=== PATIENT | male | born 1935 | race Caucasian/White ===

== ENCOUNTER → 2017-03-18 09:43 | Outpatient (CLI) | payer MEDICARE, SELFPAY ==
--- NOTE | 2017-03-18 09:46 | CDU_ITS ---
Reason For Study: Carotid stenosis Rt. Velocities/BP Lt. Velocities/BP Prox CCA 76.2/19.9 cm/sec. Prox CCA 137.0/23.6 cm/sec. Mid CCA 85.6/20.5 cm/sec. Mid CCA 130.0/25.1 cm/sec. Dist CCA 92.0/21.1 cm/sec. Dist CCA 115.0/25.1 cm/sec. Prox ICA 95.6/30.1 cm/sec. Prox ICA 50.7/11.4 cm/sec. Mid ICA 79.7/24.5 cm/sec. Mid ICA 54.2/12.6 cm/sec. Dist ICA 80.6/29.4 cm/sec. Dist ICA 45.6/9.8 cm/sec. Rt. ICA/CCA = 1.1. Lt. ICA/CCA = .42. Prox ECA 136.0/24.7 cm/sec. Prox ECA 139.0/25.9 cm/sec. Rt. Vert. 57.5/16.4 cm/sec. Lt. Vert. 47.9/18.1 cm/sec. Right Extracranial There is intimal thickening but no significant atherosclerotic plaque noted in the right common carotid artery. There is heterogeneous, irregular atherosclerotic plaque noted in the right internal carotid artery. There is heterogeneous, irregular atherosclerotic plaque noted in the right external carotid artery. Antegrade flow is noted in the right vertebral artery. Left Extracranial There is intimal thickening but no significant atherosclerotic plaque noted in the left common carotid artery. There is heterogeneous, irregular atherosclerotic plaque noted in the left internal carotid artery. LICA small in caliber. There is heterogeneous, irregular atherosclerotic plaque noted in the left external carotid artery. Antegrade flow is noted in the left vertebral artery. Procedure Carotid Duplex [id number]. Exam performed in department. Interpretation Summary Mild (<50%) stenosis right extracranial internal carotid. Mild (<50%) stenosis left extracranial internal carotid. Flow within the vertebral arteries is antegrade bilaterally. Ordering Physician: Ximena Haines Referring Physician: BRIAN BARTLETT Performed By: Sarah Snowden RVT
--- NOTE | 2017-03-18 09:47 | RDU_ITS ---
Reason For Study: Renal Insufficiency Right Renal Artery Left Renal Artery Right renal artery ostium 74.6/13.4 Left renal artery ostium 103.0/25.1 RSV/EDV. PSV/EDV. Right renal artery proximal Left renal artery proximal PSV/EDV 89.2/16.5 PSV/EDV. 114.0/29.2 . Right renal artery mid 88.6/18.9 Left renal artery mid 113.0/30.1 PSV/EDV. PSV/EDV . Right renal artery distal Left renal artery distal 115.0/25.5 110.0/22.0 PSV/EDV. PSV/EDV. Right RAR 1.3. Left RAR 1.4. Right Renal Parenchyma Left Renal Parenchyma Upper Pole Medula 38.2/10.7 Left upper pole medulla 31.8/5.8 PSV/EDV. PSV/EDV . Right upper pole medulla EDR .28 . Left upper pole medulla EDR .18 . Right upper pole medulla R.I. .72 . Left upper pole medulla R.I. .82 . Upper Matt Cortx 25.4/6.4 PSV/EDV. UP Cortex 20.5/5.8 PSV/EDV. Right upper pole cortex EDR .25 . Left upper pole cortex EDR .28 . Right upper pole cortex R.I. .75 . Left upper pole cortex R.I. .72 . Right lower Pole medulla 27.2/7.0 Left lower Pole medulla 19.3/5.8 PSV/EDV . PSV/EDV . Right lower pole medulla EDR .26 . Left lower pole medulla EDR .30 . Right lower pole medulla R.I. .74 . Left lower pole medulla R.I. .70 . Lower Pole Cortex 18.6/5.5 PSV/EDV. Lower Pole Cortx 19.3/5.2 PSV/EDV. Right lower pole cortex EDR .30 . Left lower pole cortex EDR .27 . Right lower pole cortex R.I. .70 . Left lower pole cortex R.I. .73 . Right Renal Hilar Left Renal Hilar Right Hilar avg 84.4/16.0 PSV/EDV. LT Hilar avg 45.2/10.7 PSV/EDV . Right hilar acceleration time 73 Left hilar acceleration time 51 m/sec. m/sec. Right Renal Dimensions Left Renal Dimensions Right kidney size 10.0 cm . Left kidney size 9.0 cm . Right cortical dimension 1.5 cm . Left cortical dimension 1.5 cm . Aorta Proximal abdominal aorta 1.9 x 1.8 cm . Distal abdominal aorta 1.6 x 1.6 cm . Proximal abdominal aorta peak systolic velocity is 83.9 cm/sec . Distal abdominal aorta peak systolic velocity is 78.4 cm/sec . Interpretation Summary 1. Bilateral renal arteries with <60% stenosis. Ordering Physician: Ximena Haines Referring Physician: BRIAN BARTLETT Performed By: Sarah Snowden RVT
== END ==
PROVIDERS: Family Provider Internal Medicine; PCP Internal Medicine; Visit Provider Internal Medicine
DX: I10 Essential (primary) hypertension (principal); N28.9 Disorder of kidney and ureter, unspecified; I65.23 Occlusion and stenosis of bilateral carotid arteries
CPT/HCPCS: 93880; 93975

== ENCOUNTER → 2017-04-09 12:00 | Outpatient (CLI) | payer MEDICARE, SELFPAY ==
[2017-04-09 14:53] LABS: Creatinine, Serum 1.19 mg/dL (0.70-1.30); EST Glomerular Filtration Rate 62 mL/min (>60); Est Glom Filt Rate - Afr Amer 75 mL/min (>60)
== END ==
PROVIDERS: Family Provider Internal Medicine; PCP Internal Medicine; Visit Provider Surgery Vascular Surgery
DX: I65.23 Occlusion and stenosis of bilateral carotid arteries (principal)
CPT/HCPCS: 36415; 82565

== ENCOUNTER → 2017-05-05 14:43 | Outpatient (CLI) | payer MEDICARE, SELFPAY ==
[2017-05-01 10:30] LABS: Anion Gap 8 (5-15); BUN 19 mg/dL (7-18); BUN/Creat Ratio 13.2 RATIO (10-20); Calcium,Total 8.5 mg/dL (8.5-10.1); Chloride 104 mmol/L (98-107); Creatinine, Serum 1.44 mg/dL (0.70-1.30); EST Glomerular Filtration Rate 50 mL/min (>60); Est Glom Filt Rate - Afr Amer 60 mL/min (>60); Glucose 84 mg/dL (74-106); Potassium 4.6 mmol/L (3.5-5.1); Sodium Level 140 mmol/L (136-145)
--- NOTE | 2017-05-05 14:45 | CT_ITS ---
CTA of the neck INDICATION: Bilateral carotid stenosis. TECHNIQUE: CTA of the carotids was performed in the axial projection scanning in a dynamically enhanced fashion from the base of skull through the pulmonary apices followed by sagittal and coronal reconstruction Radiographic technique was optimized to limit patient radiation dose FINDINGS: There is mild diffuse soft plaque seen within the right common carotid. At the level of the carotid bulb there is moderate soft and calcific plaque but no significant stenosis. There is also mild calcific plaque in the origin of the internal carotid There is mild diffuse soft plaque seen within the left common carotid. At the level of the carotid bulb there is mild calcific and soft plaque. However, there is occlusion of the left internal carotid at its origin. There is no contrast seen within the more distal internal carotid, petrous or cavernous carotid. The vertebrals are codominant. There is mild calcific plaque within the distal left vertebral CT/CTA Neck W/WO Contrast IMPRESSION: Occlusion of the left internal carotid without reconstitution distally. Moderate calcific plaque of the right carotid bulb without evidence for hemodynamically significant stenosis. Electronically Signed: Renato Barrow MD at 18:17 EST , Service support ,
== END ==
PROVIDERS: Family Provider Internal Medicine; PCP Internal Medicine; Visit Provider Surgery Vascular Surgery
DX: I65.23 Occlusion and stenosis of bilateral carotid arteries (principal); I10 Essential (primary) hypertension
CPT/HCPCS: 36415; 70498; 80048; Q9967

== ENCOUNTER → 2017-05-27 09:35 | Outpatient (CLI) | payer MEDICARE, SELFPAY ==
[2017-05-27 12:07] LABS: Absolute Neutrophil Count 3.2 X10^3/uL (2.0-7.7); Basophil# 0.04 X10^3/uL; Basophil% 0.8 % (0-1); Eosinophils% 5.7 % (0-5); Hematocrit 34.4 % (40-54); Hemoglobin 11.5 g/dl (13.0-16.5); Lymphocyte % 22.6 % (19-41); Mean Corp Hgb Conc 33.4 g/gl (32-36); Mean Corpuscular Volume 86.6 fL (80-94); Mean Platelet Vol. 11.9 fl (6.2-12.0); Monocyte% 11.3 % (0-10); Neutrophil # 3.16 X10^3/uL (2.7-7.7); Neutrophil % 59.6 % (47-70); Platelet Count 182 K/mm3 (150-450); RBC Distribution Width CV 14.9 % (11.6-14.6); RBC Distribution Width SD 46.5 fl (35.1-43.9); Red Blood Count 3.97 M/mm3 (4.6-6.2); White Blood Count 5.3 K/mm3 (4.4-11.0)
[2017-05-27 12:21] LABS: AST(SGOT) 19 U/L (15-37); Alanine Aminotransfer ALT/SGPT 20 U/L (16-61); Albumin, Serum 3.6 g/dL (3.2-5.0); Alkaline Phosphatase 59 U/L (45-117); Anion Gap 6 (5-15); BUN 15 mg/dL (7-18); BUN/Creat Ratio 11.4 RATIO (10-20); Calcium,Total 8.7 mg/dL (8.5-10.1); Chloride 105 mmol/L (98-107); Creatinine, Serum 1.32 mg/dL (0.70-1.30); EST Glomerular Filtration Rate 55 mL/min (>60); Est Glom Filt Rate - Afr Amer 67 mL/min (>60); Globulin 3.7 g/dL (2.2-4.2); Glucose 93 mg/dL (74-106); Potassium 4.1 mmol/L (3.5-5.1); Protein, Total 7.3 g/dL (6.4-8.2); Sodium Level 139 mmol/L (136-145)
[2017-05-27 12:22] LABS: POSITIVE COUNT NO; POSITIVE DIFFERENTIAL NO; POSITIVE MORPHOLOGY NO
== END ==
PROVIDERS: Family Provider Internal Medicine; PCP Internal Medicine; Visit Provider Internal Medicine Rheumatology
DX: M06.4 Inflammatory polyarthropathy (principal); N40.0 Benign prostatic hyperplasia without lower urinary tract symptoms; K90.0 Celiac disease; M81.0 Age-related osteoporosis without current pathological fracture; E78.5 Hyperlipidemia, unspecified; E03.9 Hypothyroidism, unspecified
CPT/HCPCS: 36415; 80053; 85025

== ENCOUNTER → 2017-12-04 10:17 | Outpatient (CLI) | payer MEDICARE, SELFPAY ==
[2017-12-04 12:11] LABS: Absolute Lymphocyte Count 1.13 X10^3/ul (0.83-4.51); Absolute Neutrophil Count 2.7 X10^3/uL (2.0-7.7); Basophil# 0.03 X10^3/uL; Basophil% 0.7 % (0-1); Eosinophil# 0.23 X10^3/uL; Eosinophils% 5.1 % (0-5); Hematocrit 35.6 % (40-54); Hemoglobin 11.6 g/dl (13.0-16.5); Lymphocyte # 1.13 X10^3/ul (4.0); Lymphocyte % 25.3 % (19-41); Mean Corp Hgb Conc 32.6 g/gl (32-36); Mean Corpuscular Hgb 28.2 pg (27.0-32.0); Mean Corpuscular Volume 86.6 fL (80-94); Mean Platelet Vol. 11.1 fl (6.2-12.0); Monocyte# 0.41 X10^3/uL; Monocyte% 9.2 % (0-10); Neutrophil # 2.67 X10^3/uL (2.7-7.7); Neutrophil % 59.7 % (47-70); Platelet Count 215 K/mm3 (150-450); RBC Distribution Width CV 14.4 % (11.6-14.6); RBC Distribution Width SD 45.1 fl (35.1-43.9); Red Blood Count 4.11 M/mm3 (4.6-6.2); White Blood Count 4.5 K/mm3 (4.4-11.0)
[2017-12-04 12:22] LABS: POSITIVE COUNT NO; POSITIVE DIFFERENTIAL NO; POSITIVE MORPHOLOGY NO
[2017-12-04 12:44] LABS: ALB/GLOB Ratio 1.1 RATIO (0.9-2.4); AST(SGOT) 20 U/L (15-37); Alanine Aminotransfer ALT/SGPT 25 U/L (16-61); Albumin, Serum 3.8 g/dL (3.2-5.0); Alkaline Phosphatase 57 U/L (45-117); Anion Gap 9 (5-15); BUN 17 mg/dL (7-18); BUN/Creat Ratio 15.5 RATIO (10-20); Calcium,Total 8.7 mg/dL (8.5-10.1); Chloride 106 mmol/L (98-107); EST Glomerular Filtration Rate 68 mL/min (>60); Est Glom Filt Rate - Afr Amer 82 mL/min (>60); Globulin 3.4 g/dL (2.2-4.2); Glucose 75 mg/dL (74-106); Potassium 4.1 mmol/L (3.5-5.1); Protein, Total 7.2 g/dL (6.4-8.2); Sodium Level 141 mmol/L (136-145)
== END ==
PROVIDERS: Family Provider Internal Medicine; PCP Internal Medicine; Referring Provider Internal Medicine Rheumatology; Visit Provider Internal Medicine Rheumatology
DX: M06.4 Inflammatory polyarthropathy (principal); K90.0 Celiac disease; M81.0 Age-related osteoporosis without current pathological fracture; E78.5 Hyperlipidemia, unspecified; E03.9 Hypothyroidism, unspecified; N40.0 Benign prostatic hyperplasia without lower urinary tract symptoms
CPT/HCPCS: 36415; 80053; 85025

== ENCOUNTER 2018-02-08 06:12 | Inpatient (IN) | payer MEDICARE, SELFPAY ==
[2018-01-21 13:36] VITALS: BP 130/74; PULSE 65; RESP 16; TEMP 36.6; O2SAT 95; BMI 30.9
--- NOTE | 2018-01-21 13:57 | SDCEKG_ITS ---
Test Reason : Blood Pressure : / mmHG Vent. Rate : 064 BPM Atrial Rate : 064 BPM P-R Int : 254 ms QRS Dur : 080 ms QT Int : 398 ms P-R-T Axes : 058 021 046 degrees QTc Int : 410 ms Poor data quality, interpretation may be adversely affected Sinus rhythm with 1st degree A-V block Septal infarct , age undetermined Abnormal ECG Confirmed by MARTY DUNN, DENICE ([id number]), purchasing expeditor ASYA REAVES ([id number]) on 01/27/2018 11:32:35 AM Referred By: Ximena Haines Confirmed By:DENICE FERGUSON MD
[2018-01-21 14:26] LABS: Hemoglobin 11.8 g/dl (13.0-16.5); Mean Corp Hgb Conc 32.8 g/gl (32-36); Mean Corpuscular Hgb 28.6 pg (27.0-32.0); Mean Corpuscular Volume 87.4 fL (80-94); Mean Platelet Vol. 11.3 fl (6.2-12.0); Platelet Count 196 K/mm3 (150-450); RBC Distribution Width CV 14.3 % (11.6-14.6); Red Blood Count 4.12 M/mm3 (4.6-6.2); Scan Indicated on CBC? Y/N NO; White Blood Count 5.6 K/mm3 (4.4-11.0)
[2018-01-21 14:44] LABS: Anion Gap 11 (5-15); BUN 20 mg/dL (7-18); BUN/Creat Ratio 15.6 RATIO (10-20); Calcium,Total 8.6 mg/dL (8.5-10.1); Chloride 106 mmol/L (98-107); Creatinine, Serum 1.28 mg/dL (0.70-1.30); EST Glomerular Filtration Rate 57 mL/min (>60); Est Glom Filt Rate - Afr Amer 69 mL/min (>60); Glucose 106 mg/dL (74-106); Potassium 4.3 mmol/L (3.5-5.1); Sodium Level 142 mmol/L (136-145); Thyroid Stim Hormone (TSH) 0.63 uIU/mL (0.358-3.74)
[2018-02-08] VITALS (10 sets, daily range): BP systolic 90–131; BP diastolic 51–98; PULSE 56–81; RESP 16–18; TEMP 36.1–36.9; O2SAT 94–100; BMI 30.9
--- NOTE | 2018-02-08 | KNEE_PTH ---
PATIENT: DELROY TIPTON LOC: MS3 U#:[id number] AGE/SX: 82/M ROOM: RI324 RE02/08/[address]: Dr. Fabian Kay DO : 1935 BED: 1 DIS: 02/09/2018 SPEC #: [id number] RECD: 02/08/18 13:27 STATUS: CINTHIA REMayra #: [id number] NICOLASA: 02/08/18 00:[address]: Fabian Kay DEPT: SURGICAL PATHOLOGY RECD BY: Sudarshan Payne ENTERED: 02/08/18 13:27 SP TYPE: TOTAL KNEE OTHR DR: Dr. Ximena Haines MD Tissues: Knee, NOS Procedures: Decalcification bone/plaque Surgery Specimen Level IV HEADER OPERATION: Total knee replacement PRE-OP DIAGNOSIS: Osteoarthritis left knee TISSUE SUBMITTED: Bone and soft tissue MICROSCOPIC DIAGNOSIS Bone of left knee, total knee resection: Severe degenerative joint disease. Mild synovial hyperplasia with associated mild chronic inflammation. AM:alma 02/10/18 MICROSCOPIC DESCRIPTION Slides are reviewed. GROSS DESCRIPTION Received is one container designated bone and soft tissue left knee. The specimen consists of multiple fragments of yin-yellow bone measuring in aggregate 17 x 12 x 2 cm. Also in the specimen container are multiple fragments of yellow-white soft tissue measuring in aggregate 8 x 6 x 1 cm. A number of bony fragments contain articular surfaces consistent with tibial plateau and femoral condyle and displaying prominent osteophyte formation, eburnation, and bone erosion. Publicity Writer sections are submitted in two cassettes as follows: 1 - soft tissue, 2 - bone after decalcification. / AM:alma 02/08/18 TC:5 CPT: 88582, 91666
[2018-02-08] MEDS: Acetaminophen 500 MG Tablet 1000 MG PO ×3 (07:32→21:34)
[2018-02-08] MEDS: oxyCODONE HCl Cr 10 MG Tablet PO (07:33)
[2018-02-08] MEDS: Celecoxib 200 MG Capsule 400 MG PO (07:33)
[2018-02-08] MEDS: Cefazolin 2 GM in 0.9% Normal Saline 100 ML IV (09:05)
--- NOTE | 2018-02-08 10:18 | PCM.IMDPSTOP ---
Immediate Post-Op Note Date of Procedure: 02/08/18 Primary Surgeon/Physician: Fabian Kay upholstered goods crafter: Jerry Jimenez Pre-Operative Diagnosis: OA left knee Post-Operative Diagnosis: same Surgery/Procedure Performed:: Left TKR Description of Surgical Findings:: see note Estimated Blood Loss: 25cc Specimen's removed: bone Type of Anesthesia:: Spinal ASA Class: ASA3 Severe Disease - Admit VTE Documentation VTE Present on Admission: No VTE Mechan Device Prophylaxis: SCD's, Thigh High DEBORAH Hose VTE Pharm Prophylaxis ordered?: Yes
--- NOTE | 2018-02-08 10:19 | PCM.OP.BLANK ---
Operative Report Date of Procedure: 02/08/18 Primary Surgeon/Physician: Fabian Kay operations general agent: Jerry Jimenez PA-C operations general agent: Pre-Operative Diagnosis: OA left knee Post-Operative Diagnosis: same Surgery/Procedure Performed: Left TKR Estimated Blood Loss: 25cc Specimen's Removed: bone Type of Anesthesia: spinal ASA Class: 3 Implants: [Isabella Triathlon size 5 femur, size 6 tibia, 11 mm PS poly, 38 mm patella, all components cemented ] Indications: Patient has severe end-stage osteoarthritis diagnosed via x-rays in the knee. They have failed all forms of conservative measures including activity modification, injections, anti-inflammatories, use of assistive device. The patient has pain that affects on a daily basis and prevents him from doing things that they enjoyed. They have elected to undergo the above procedure. The risks of the procedure were discussed at length and their questions were answered. Procedure Description: The patient was greeted in the preoperative area. The [left ] knee was then marked with a surgical marker. Patient was then taken to or Suite 2. They were administered a dose of antibiotics as well as tranexamic acid. Once adequate anesthesia was obtained and airway was secured to placed in supine position on the operating room table. A well-padded tourniquet was placed on the affected extremity. Leg was then prepped and draped in the usual sterile fashion from the knee down. Ioban was used on the skin. Surgical timeout was then performed and confirmed with all present. Six-inch Esmarch was used to examine the limb and tourniquet was then inflated to 250 mmHg. A longitudinal incision was then planned and carried out in the anterior aspect of the knee. The dissection was then carried the length of the incision the extensor mechanism was identified. Standard medial parapatellar arthrotomy was then performed revealing severe eburnation of bone and periarticular osteophytes. There is complete loss of cartilage especially in the medial compartment with varus alignment. Anterior fat pad was removed for visualization purposes and the anterior medial aspect of the tibia was skeletonized for exposure to the knee. The knee was then flexed the patella was inverted. Opening reamer was then used in the femur approximately 1 cm anterior to the attachment of the PCL. The intramedullary valgus wand was then placed in the femur set at 5? of valgus. The distal femoral cutting jig was then applied to the femur with anticipated resection of approximately 8 mm. This was then made with a oscillating saw. The sizing guide was then placed referencing off the posterior condyles and also reference off the epicondylar axis. This was measured and the appropriate size 4-in-1 cutting jig was then applied to the distal femur. Anterior posterior cuts were made followed by the anterior and posterior chamfer cuts. These bony pieces and fragments were removed and placed on the back table. Posterior retractor was then utilized and the tibia was subluxed anteriorly. Extramedullary tibial alignment jig was then applied to the tibia referencing off the medial one third of the tibial tubercle the anterior tibial spine the middle aspect of the tibiotalar joint. Also reference off patient's [place] slope. The tibial cutting jig was then pinned with anticipated resection of 2 mm off of the deficient medial tibial condyle. This cut was made with the oscillating saw. Once this was complete a laminar plumbing service technician was utilized in both medial lateral meniscus were removed and a posterior capsular osteophytes were also removed. Posterior capsule release was performed in the posterior capsule as well as the geniculate arteries are treated with the aqua Gauri. The tibia was incised and the appropriate sized tibial tray was then pinned. The femoral box cutting jig was then applied to the femur and the box was prepared removing a portion of the intercondylar notch. The femoral trial was then placed and the knee was trialed. Full flexion-extension were easily achieved. The knee seemed to balance quite nicely. Any remaining osteophytes were removed at this time. Once this was complete the patella was everted and the Aguilar patella reaming device was then utilized the patella was then placed in the appropriate jig and reamer was then used to remove approximately 9 mm of the undersurface of the patella. A soft tissue remaining was in the way was removed and patella trial was then placed listed maintain excellent tracking using the no thumbs technique. The tibial tray at this point was punched to accommodate the fins of the final implant. At this point cement was mixed on the back table. The trial components were removed and the knee was copiously irrigated. Did use a cocktail of injection for postoperative pain control. The final components were then cemented in the standard fashion and excess cement was removed with cement removal tools and patellar clamp is placed in the patella. As the cement had cured in full extension tourniquet was deflated and hemostasis was perfect with Bovie cautery as well as the aqua Manus. Needle is once again trialed with different size polyethylenes to ensure the full range of motion was achieved as well as excellent balancing ligamentously was achieved. At this point the knee was copiously irrigated. Final implant was then inserted locking mechanism was engaged and confirmed to be locked. The arthrotomy was then closed with #1 Vicryl aggravate type fashion interrupted. Subcutaneous tissue was closed with 0 Vicryl and surgical radha were placed in the skin. A occlusive silver impregnated dressing was then applied followed by well-padded sterile dressing secured with an Alexander wrap. The patient was taken to the PACU in stable condition. No complications known at this time. Postoperatively we will maintain standard total knee postoperative protocol. The use of the physician sales operations assistant was integral during this procedure. They assisted with positioning placement of the tourniquet retracting closure and placement of the dressing. The procedure would have been much more difficult without their expertise and assistance
--- NOTE | 2018-02-08 10:22 | OP.PCM_ITS ---
Operative Report Date of Procedure: 02/08/18 Primary Surgeon/Physician: Fabian Kay brake repairer: Jerry Jimenez PA-C brake repairer: Pre-Operative Diagnosis: OA left knee Post-Operative Diagnosis: same Surgery/Procedure Performed: Left TKR Estimated Blood Loss: 25cc Specimen's Removed: bone Type of Anesthesia: spinal ASA Class: 3 Implants: [Isabella Triathlon size 5 femur, size 6 tibia, 11 mm PS poly, 38 mm patella, all components cemented ] Indications: Patient has severe end-stage osteoarthritis diagnosed via x-rays in the knee. They have failed all forms of conservative measures including activity modification, injections, anti-inflammatories, use of assistive device. The patient has pain that affects on a daily basis and prevents him from doing things that they enjoyed. They have elected to undergo the above procedure. The risks of the procedure were discussed at length and their questions were answered. Procedure Description: The patient was greeted in the preoperative area. The [left ] knee was then marked with a surgical marker. Patient was then taken to or Suite 2. They were administered a dose of antibiotics as well as tranexamic acid. Once adequate anesthesia was obtained and airway was secured to placed in supine position on the operating room table. A well-padded tourniquet was placed on the affected extremity. Leg was then prepped and draped in the usual sterile fashion from the knee down. Ioban was used on the skin. Surgical timeout was then performed and confirmed with all present. Six-inch Esmarch was used to examine the limb and tourniquet was then inflated to 250 mmHg. A longitudinal incision was then planned and carried out in the anterior aspect of the knee. The dissection was then carried the length of the incision the extensor mechanism was identified. Standard medial parapatellar arthrotomy was then performed revealing severe eburnation of bone and periarticular osteophytes. There is complete loss of cartilage especially in the medial co mpartment with varus alignment. Anterior fat pad was removed for visualization purposes and the anterior medial aspect of the tibia was skeletonized for exposure to the knee. The knee was then flexed the patella was inverted. Opening reamer was then used in the femur approximately 1 cm anterior to the attachment of the PCL. The intramedullary valgus wand was then placed in the femur set at 5? of valgus. The distal femoral cutting jig was then applied to the femur with anticipated resection of approximately 8 mm. This was then made with a oscillating saw. The sizing guide was then placed referencing off the posterior condyles and also reference off the epicondylar axis. This was measured and the appropriate size 4-in-1 cutting jig was then applied to the distal femur. Anterior posterior cuts were made followed by the anterior and posterior chamfer cuts. These bony pieces and fragments were removed and placed on the back table. Posterior retractor was then utilized and the tibia was subluxed anteriorly. Extramedullary tibial alignment jig was then applied to the tibia referencing off the medial one third of the tibial tubercle the anterior tibial spine the middle aspect of the tibiotalar joint. Also reference off patient's [place] slope. The tibial cutting jig was then pinned with anticipated resection of 2 mm off of the deficient medial tibial condyle. This cut was made with the oscillating saw. Once this was complete a laminar merchant banker was utilized in both medial lateral meniscus were removed and a posterior capsular osteophytes were also removed. Posterior capsule release was performed in the posterior capsule as well as the geniculate arteries are treated with the aqua Gauri. The tibia was incised and the appropriate sized tibial tray was then pinned. The femoral box cutting jig was then applied to the femur and the box was prepared removing a portion of the intercondylar notch. The femoral trial was then placed and the knee was trialed. Full f lexion-extension were easily achieved. The knee seemed to balance quite nicely. Any remaining osteophytes were removed at this time. Once this was complete the patella was everted and the Aguilar patella reaming device was then utilized the patella was then placed in the appropriate jig and reamer was then used to remove approximately 9 mm of the undersurface of the patella. A soft tissue remaining was in the way was removed and patella trial was then placed listed maintain excellent tracking using the no thumbs technique. The tibial tray at this point was punched to accommodate the fins of the final implant. At this point cement was mixed on the back table. The trial components were removed and the knee was copiously irrigated. Did use a cocktail of injection for postoperative pain control. The final components were then cemented in the standard fashion and excess cement was removed with cement removal tools and patellar clamp is placed in the patella. As the cement had cured in full extension tourniquet was deflated and hemostasis was perfect with Bovie cautery as well as the aqua Manus. Needle is once again trialed with different size polyethylenes to ensure the full range of motion was achieved as well as excellent balancing ligamentously was achieved. At this point the knee was copiously irrigated. Final implant was then inserted locking mechanism was engaged and confirmed to be locked. The arthrotomy was then closed with #1 Vicryl aggravate type fashion interrupted. Subcutaneous tissue was closed with 0 Vicryl and surgical radha were placed in the skin. A occlusive silver impregnated dressing was then applied followed by well-padded sterile dressing secured with an Alexander wrap. The patient was taken to the PACU in stable condition. No complications known at this time. Postoperatively we will maintain standard total knee postoperative protocol. The use of the physician assistant drafter was integral during this procedure. They assisted with positioning placement of the tourniquet retracting closure and placement of the dressing. The procedure would have been much more difficult without their expertise and assistance
--- NOTE | 2018-02-08 10:50 | EKG12_ITS ---
Test Reason : POST-OP Blood Pressure : / mmHG Vent. Rate : 078 BPM Atrial Rate : 078 BPM P-R Int : 278 ms QRS Dur : 096 ms QT Int : 432 ms P-R-T Axes : 073 029 044 degrees QTc Int : 492 ms Sinus rhythm with 1st degree A-V block with Premature atrial complexes Nonspecific ST abnormality Prolonged QT Abnormal ECG Confirmed by JESSI DUNN, BERNADINE ([id number]), technical writer and editor ASYA REAVES ([id number]) on 02/11/2018 3:24:33 PM Referred By: Ximena Haines Confirmed By:BERNADINE BOWEN MD
--- NOTE | 2018-02-08 11:04 | SUR.PHASEI ---
Pt arriving to PACU c/o chest pain. Dr Perea notified and arrived to bedside. Stat EKG and 100% O2 mask and NTG 0.4mg tablet given.
[2018-02-08 11:27] LABS: Hematocrit 32.8 % (40-54); Hemoglobin 10.7 g/dl (13.0-16.5); Mean Corp Hgb Conc 32.6 g/gl (32-36); Mean Corpuscular Hgb 28.2 pg (27.0-32.0); Mean Corpuscular Volume 86.5 fL (80-94); Mean Platelet Vol. 10.2 fl (6.2-12.0); Platelet Count 184 K/mm3 (150-450); RBC Distribution Width CV 14.3 % (11.6-14.6); RBC Distribution Width SD 45.4 fl (35.1-43.9); Red Blood Count 3.79 M/mm3 (4.6-6.2); White Blood Count 5.9 K/mm3 (4.4-11.0)
[2018-02-08 11:28] LABS: Scan Indicated on CBC? Y/N NO
[2018-02-08 11:36] LABS: Anion Gap 10 (5-15); BUN 13 mg/dL (7-18); BUN/Creat Ratio 12.1 RATIO (10-20); Calcium,Total 8.3 mg/dL (8.5-10.1); Chloride 107 mmol/L (98-107); Creatinine, Serum 1.07 mg/dL (0.70-1.30); EST Glomerular Filtration Rate 70 mL/min (>60); Est Glom Filt Rate - Afr Amer 85 mL/min (>60); Glucose 150 mg/dL (74-106); Potassium 3.4 mmol/L (3.5-5.1); Sodium Level 140 mmol/L (136-145)
[2018-02-08] MEDS: Lactated Ringers 1,000 ML 125 ML IV ×2 (13:51→21:34)
[2018-02-08] MEDS: Gabapentin 300 MG Capsule PO (17:08)
[2018-02-08] MEDS: Cefazolin 1 GM/50 ML BAG IV (17:09)
[2018-02-08] MEDS: Aspirin 325 MG Tablet PO (17:09)
[2018-02-08] MEDS: Ferrous Sulfate 325 MG Tablet PO (17:09)
[2018-02-08] MEDS: Tamsulosin HCl 0.4 MG Capsule PO (21:34)
[2018-02-08] MEDS: Senna/Docusate Sodium 1 Tablet 2 TABLET PO (21:34)
[2018-02-08] MEDS: Pravastatin 80 MG Tablet PO (21:34)
[2018-02-08] MEDS: Cyanocobalamin 500 MCG Tablet 1000 MCG PO (21:34)
[2018-02-08] MEDS: traMADol 50 MG Tablet PO (21:35)
[2018-02-09] MEDS: Cefazolin 1 GM/50 ML BAG IV (00:39)
[2018-02-09] MEDS: oxyCODONE 5 MG Tablet PO ×2 (00:44→08:34)
[2018-02-09 02:16] VITALS: BP 131/67; PULSE 60; RESP 16; TEMP 36.4; O2SAT 97
[2018-02-09] MEDS: Acetaminophen 500 MG Tablet 1000 MG PO ×2 (05:45→14:06)
[2018-02-09] MEDS: Levothyroxine 112 MCG Tablet PO (05:46)
[2018-02-09 06:31] LABS: Hematocrit 31.1 % (40-54); Hemoglobin 10.2 g/dl (13.0-16.5); Mean Corp Hgb Conc 32.8 g/gl (32-36); Mean Corpuscular Hgb 28.9 pg (27.0-32.0); Mean Corpuscular Volume 88.1 fL (80-94); Mean Platelet Vol. 11.1 fl (6.2-12.0); Platelet Count 176 K/mm3 (150-450); RBC Distribution Width CV 14.2 % (11.6-14.6); RBC Distribution Width SD 44.5 fl (35.1-43.9); Red Blood Count 3.53 M/mm3 (4.6-6.2); White Blood Count 6.6 K/mm3 (4.4-11.0)
[2018-02-09 06:35] LABS: BUN 16 mg/dL (7-18); Calcium,Total 8.2 mg/dL (8.5-10.1); Chloride 108 mmol/L (98-107); Creatinine, Serum 1.14 mg/dL (0.70-1.30); EST Glomerular Filtration Rate 65 mL/min (>60); Est Glom Filt Rate - Afr Amer 79 mL/min (>60); Estimated Creatinine Clearance 43.46 ml/min; Glucose 92 mg/dL (74-106); Potassium 4.4 mmol/L (3.5-5.1); Sodium Level 142 mmol/L (136-145)
[2018-02-09 06:36] LABS: Anion Gap 7 (5-15)
[2018-02-09 06:49] LABS: Scan Indicated on CBC? Y/N NO
[2018-02-09 07:14] VITALS: O2SAT 94
--- NOTE | 2018-02-09 07:56 | PN.ORTHO_ITS ---
Subjective: Patient sitting at bedside eating breakfast. Patient states pain is very well managed. Patient states he has had no chest pain since postoperative after receiving Mylanta. Patient denies chest pain, shortness breath, calf pain, nausea vomiting. Patient states she is ready for discharge home Objective: Dressings clean dry intact. Review of postop notes and EKG shows no EKG changes postoperatively. Patient's vitals and labs are within normal limits. Patient is afebrile neurovascular is otherwise intact. Patient has no obvious respiratory distress, and speaking in full sentences. - Physical Exam General: Alert, Oriented x3, Cooperative HEENT: PERRLA Oral: Moist Mucosa Cardiovascular: Regular rate Neurological: Cranial nerves II-XII grossly intact Psych/Mental Status: Normal Affect, Alert and oriented to time, place, person, mood and affect Vital Signs Temp Pulse Resp BP Pulse Ox 97.6 F L 60 16 131/67 H 97 02/09/18 02:16 02/09/18 02:16 02/09/18 02:16 02/09/18 02:16 02/09/18 02:16 Oxygen Flow Rate (L/min) 2 Oxygen Delivery Method Room Air Weight: 84.5 kg Body Mass Index (BMI) 30.9 Finger Stick Blood Glucose 99 Intake and Output for Last 24 Hours 02/07/18 02/08/18 02/09/18 23:59 23:59 23:59 Intake Total 1500 / 1500 2765 / 2765 Output Total 900 / 900 Balance 1500 / 1500 1865 / 1865 Laboratory Tests Past 24 Hrs 02/08/18 02/08/18 02/09/18 11:18 11:18 06:04 WBC 5.9 6.6 RBC 3.79 L 3.53 L Hgb 10.7 L 10.2 L Hct 32.8 L 31.1 L MCV 86.5 88.1 MCH 28.2 28.9 MCHC 32.6 32.8 RDW 14.3 14.2 RDW Differential 45.4 H 44.5 H Plt Count 184 176 MPV 10.2 11.1 Sodium 140 Potassium 3.4 L Chloride 107 Carbon Dioxide 23.0 Anion Gap 10 BUN 13 Creatinine 1.07 Estim Creat Clear Calc 46.30 Est GFR (MDRD) Af Amer 85 Est GFR (MDRD) Non-Af 70 BUN/Creatinine Ratio 12.1 Glucose 150 H Calcium 8.3 L 02/09/18 06:04 WBC RBC Hgb Hct MCV MCH MCHC RDW RDW Differential Plt Count MPV Sodium 142 Potassium 4.4 Chloride 108 H Carbon Dioxide 27.0 Anion Gap 7 BUN 16 Creatinine 1.14 Estim Creat Clear Calc 43.46 Est GFR (MDRD) Af Amer 79 Est GFR (MDRD) Non-Af 65 BUN/Creatinine Ratio 14.0 Glucose 92 Calcium 8.2 L Medical Necessity - Tobacco Use Smoking Status: Current every day smoker Tobacco Use: Chew Assessment/Plan All Active Problems Dehydration (Acute) Diarrhea (Acute) Generalized weakness (Acute) Joint pain (Acute) Status post left total knee arthroplasty Plan 1. Continue all pain medications as prescribed 2. Continue physical therapy with weightbearing as tolerated, with walker 3. Aspirin 325 mg 1 p.o. every 12 hours times 30 days for postop DVT prophylaxis 4. Encourage incentive spirometry 5. Follow-up as scheduled Dr. Kay, see pink sheet 6. We will continue with outpatient physical therapy at [facility] 7. Discharge after p.m. therapy
--- NOTE | 2018-02-09 08:01 | DCINST_ITS ---
Discharge Diet: No Restrictions Discharge Activity: May Not Drive, May Shower, Use Walker May shower in (days): 2 Ice area for (Minutes): 20 - each hour while awake. Weight Bearing Status: Weight bearing as tolerated Elevate: Operative Extremity Additional Activity Instructions:: Wear elastic stockings for 2 weeks after your surgery. Call your doctor if your incision/area has: Continuous Slow Oozing, Sudden Increased Bleeding, Increased Pain/ Swelling, Increased Redness, Foul Smelling Discharge Call your doctor if you observe: Fever of 101 or Higher, Coldness, Increased Pain - in extremity, Numbness or Tingling, Change in Color, Calf discomfort, Uncontrolled pain Change Dressing in (Days):: 0 - and daily as needed. Remove Dressing in (days):: 8 Cleanse incision/area with: Soap & Water Allergies/Adverse Reactions: Allergies No Known Allergies Allergy (Verified 01/21/18 12:55) Medications to take at Discharge Ferrous Sulfate [Iron Supplement] 65 mg PO BID 09/21/13 Finasteride [Proscar] 5 mg PO DAILY 09/21/13 Gabapentin [Neurontin] 300 mg PO TIDCM 09/21/13 Levothyroxine Sodium [Synthroid] 112 mcg PO DAILY 09/21/13 Pravastatin [Pravachol] 80 mg PO DAILY 09/21/13 Tamsulosin HCl [Flomax] 0.4 mg PO QHS 09/21/13 Hydroxychloroquine [Plaquenil] 200 mg PO BIDCM 10/25/15 L.acidoph,Paracasei, B.lactis [Probiotic] 1 each PO DAILY 10/25/15 Cholecalciferol (Vitamin D3) [Vitamin D3] 2,000 unit PO QHS 01/21/18 Cyanocobalamin [Vitamin B12] 1,000 mcg PO BID 01/21/18 Metoprolol(XL)Succ [Toprol Xl (Beta Humberto)] 25 mg PO LUNCH 01/21/18 Naproxen Sodium [Aleve] 220 mg PO PRN PRN 01/21/18 Nifedipine [Procardia Xl] 30 mg PO PRN PRN 01/21/18 Ramipril 10 mg PO LUNCH 01/21/18 Acetaminophen [Tylenol] 1,000 mg PO Q8 #90 tab 02/09/18 Aspirin 325 mg PO BIDCM #60 tab 02/09/18 Oxycodone [Oxyir] 5 - 10 mg PO Q4H PRN PRN 7 Days #90 tab 02/09/18 The following prescriptions were given: Oxycodone [Oxyir] 5 - 10 mg PO Q4H PRN PRN 7 Days #90 tab PRN Reason: Mod-Severe Pain (-12/16) Acetaminophen [Tylenol] 1,000 mg PO Q8 #90 tab Aspirin 325 mg PO BIDCM #60 tab Primary Care Physician: Ximena Haines MD [Primary Care Provider] - Test Results: Test results from this visit will be discussed in further detail at your follow- up appointment, if applicable. Please Follow Up With: Fabian Kay DO When: as scheduled (see pink sheet)
[2018-02-09 08:15] VITALS: BP 152/69; PULSE 71; RESP 18; TEMP 36.9; O2SAT 97
[2018-02-09] MEDS: Gabapentin 300 MG Capsule PO ×2 (08:32→11:33)
[2018-02-09] MEDS: Aspirin 325 MG Tablet PO (08:32)
[2018-02-09] MEDS: Cyanocobalamin 500 MCG Tablet 1000 MCG PO (08:33)
--- NOTE | 2018-02-09 10:25 | CASEMGMT ---
RN EMERY Face to Face with patient for initial transition planning/care coordination assessment. RN CM introduced self and role at [facility]. Patient sitting in bed, alert and oriented. Patient willing to participate in assessment and is able to answer all questions appropriately. Care providers, pharmacy, and demographics verified. Patient wishes to discharge home and is setup with [facility] for outpatient therapy. Patient states he has no further needs or concerns at this time. CM to follow for discharge planning needs that may arise. 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 Patient independent at home. Transportation: DME/HHC: Patient has cane and walker at home. Disposition Plan: Patient to discharge home with outpatient therapy, family support, and follow-up plans in place. Mary Lou CULP, RN, CM
[2018-02-09 11:33] VITALS: BP 133/96; PULSE 79
[2018-02-09] MEDS: Metoprolol(XL)Succ 25 MG Tablet PO (11:33)
[2018-02-09] MEDS: Ramipril 10 MG Capsule PO (11:33)
[2018-02-09] MEDS: Ferrous Sulfate 325 MG Tablet PO (11:33)
[2018-02-09] MEDS: traMADol 50 MG Tablet PO (11:34)
[2018-02-09 14:00] VITALS: BP 160/72; PULSE 73; RESP 18; TEMP 37.3; O2SAT 98
--- OUTSIDE RECORDS SUMMARY | 2018-04-03 03:49 | XMS RPT_ITS ---
:1935 Author Organization OHIP Support Name Relationship Address Phone DANUTA PAT Unavailable [address] + [place] [address] DANUTA ROSALIND Unavailable [address] + [place] [address] R Unavailable Unavailable Unavailable DANUTA, PAT Unavailable [address] + [place] [address] DANUTA, ROSALIND Unavailable [address] + [place] [address] R Unavailable Unavailable Unavailable DANUTA, PAT Unavailable [address] + [place] [address] DANUTA, ROSALIND Unavailable [address] + [place] [address] R Unavailable Unavailable Unavailable DANUTA, PAT Unavailable [address] + [place] [address] DANUTA, ROSALIND Unavailable [address] + [place] [address] R Unavailable Unavailable Unavailable DANUTA, PAT Unavailable [address] + [place] [address] DANUTA, ROSALIND Unavailable [address] + [place] [address] R Unavailable Unavailable Unavailable DANUTA, PAT Unavailable [address] + [place] [address] DANUTA, ROSALIND Unavailable [address] + [place] [address] R Unavailable Unavailable Unavailable DANUTA, PAT Unavailable [address] + [place] [address] DANUTA, ROSALIND Unavailable [address] + [place] [address] R Unavailable Unavailable Unavailable DANUTA, PAT Unavailable [address] + [place] [address] DANUTA, ROSALIND Unavailable [address] + [place] [address] R Unavailable Unavailable Unavailable Care Team Providers Name Role Phone OVIDIO MART Referring Unavailable Bonezzi, Ximena Primary Care Unavailable Bonezzi, Ximena Consulting Unavailable Bonezzi, Ximena Attending Unavailable MART, OVIDIO Attending Unavailable Bonezzi, Ximena Primary Care Unavailable MART, OVIDIO Attending Unavailable Bonezzi, Ximena Primary Care Unavailable MART, OVIDIO Attending Unavailable MART, OVIDIO Referring Unavailable Bonezzi, Ximena Primary Care Unavailable Vellanki, Shannan Attending Unavailable Vellanki, Shannan Referring Unavailable Bonezzi, Ximena Primary Care Unavailable Vellanki, Shannan Attending Unavailable Vellanki, Shannan Referring Unavailable Bonezzi, Ximena Primary Care Unavailable KnapicFabian Admitting Unavailable Knapic, Fabian Attending Unavailable Bonezzi, Ximena Primary Care Unavailable Bonezzi, Ximena Referring Unavailable JulienJoão farley Attending Unavailable KnapicFabian Referring Unavailable MART, OVIDIO ESCAMILLA Attending Unavailable BONEZZI, XIMENA RAYO Referring Unavailable MART, OVIDIO ESCAMILLA Attending Unavailable BONEZZI, XIMENA RAYO Referring Unavailable MART, OVIDIO ESCAMILLA Referring Unavailable MART, OVIDIO ESCAMILLA Referring Unavailable MART, OVIDIO Virk Attending Unavailable BONEZZI, XIMENA Referring Unavailable BONEZZI, XIMENA Primary Care Unavailable MART, OVIDIO Virk Attending Unavailable BONEZZI, XIMENA Referring Unavailable BONEZZI, XIMENA Primary Care Unavailable MART, OVIDIO Virk Attending Unavailable BONEZZI, XIMENA Referring Unavailable BONEZZI, XIMENA Primary Care Unavailable MART, OVIDIO Virk Attending Unavailable BONEZZI, XIMENA Referring Unavailable BONEZZI, XIMENA Primary Care Unavailable PROBLEMS PROBLEMS DATE TYPE CONDITION / CODE ATTENDING STATUS SOURCE Unknown M17.12 - Unilateral Knapic, Active [place] 8 primary [facility] osteoarthritis, left Hospital knee / M17.12(ICD-10) Repository Unknown R94.31 - Abnormal Julien, [place] Active [place] 8 electrocardiogram Community [ECG] [EKG] / Hospital R94.31(ICD-10) Repository Unknown M06.4 - Inflammatory Vellanki, 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 / Sh[facility] Community M06.4(ICD-10) Hospital Repository Unknown K90.0 - Celiac disease Vellanki, Active [place] 8 / K90.0(ICD-10) [facility] Hospital Repository Unknown M81.0 - Age-related Cal, Active [place] 8 osteoporosis without [facility] current pathological Hospital fracture / Repository M81.0(ICD-10) Unknown E78.5 - Velzoya, Active [place] 8 Hyperlipidemia, [facility] unspecified / Hospital E78.5(ICD-10) Repository Unknown E03.9 - Vellanki, Active [place] 8 Hypothyroidism, [facility] unspecified / Hospital E03.9(ICD-10) Repository Unknown N40.0 - Benign Vellanki, Active [place] 8 prostatic hyperplasia [facility] without lower urinary Hospital tract symptoms / Repository N40.0(ICD-10) Active Unknown / UNK(Unknown) OVIDIO MART Active [place] 8 [facility] Other [place] Repository Unknown 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 / Hospital I65.23(ICD-10) Repository Active Occlusion and stenosis NA Active [place] 8 of bilateral carotid [facility] Main arteries / [place] I65.23(ICD-10) Repository Admitting Unknown / UNK(Unknown) OVIDIO MART Active [facility] 8 diagnosis [facility] Repository Unknown 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, 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, Community unspecified / Hospital N28.9(ICD-10) Repository Unknown I10 - Essential Bonezzi, Ximena Active [place] [facility] (primary) hypertension Community / I10(ICD-10) Hospital Repository PROCEDURES PROCEDURES No Procedure Records FoundRESULTS RESULTS 12 LEAD ELECTROCARDIOGRAM Observed: 02/11/2018 Status: F Source: [place] 3:24 PM [facility] HOSPITAL REPOSITORY [facility] Cardiovascular Services [address] [place] [address] 12 Lead EKG 02/08/18 1059 MR#: [id number] Acct: [id number] Name: CARRINGTON TIPTON Rep #: [id number] : 1935 82 From: Tyshawn Bowen MD Attending Dr: Fabian Kay DO Status: DIS IN Ordering Dr: Víctor Perea MD Date: 02/08/18 Location: MS3 Sex: M C Admitted: 02/08/18 Test Reason : POST-OP Blood Pressure : / mmHG Vent. Rate : 078 BPM Atrial Rate : 078 BPM P-R Int : 278 ms QRS Dur : 096 ms QT Int : 432 ms P-R-T Axes : 073 029 044 degrees QTc Int : 492 ms Sinus rhythm with 1st degree A-V block with Premature atrial complexes Nonspecific ST abnormality Prolonged QT Abnormal ECG Confirmed by JESSI DUNN, TYSHAWN ([id number]), graphics editor ASYA REAVES ([id number]) on 02/11/2018 3:24:33 PM Referred By: Ximena Padilla Confirmed By:TYSHAWN BOWEN MD 02/11/18 1524 Date Tyshawn Bowen MD CC: Víctor Perea MD; Ximena Padilla MD; Fabian Kay DO Signed DISCHARGE INSTRUCTION Observed: 02/09/2018 Status: F Source: [place] 8:01 AM [facility] [place] [facility] Medical Records Department [address] [place] [address] Instructions for Home/Discharge Instructions 02/09/18 0800 MR#: [id number] Acct: [id number] Name: CARRINGTON TIPTON Rep #: [id number] : 1935 82 From: Jerry Jimenez PA-C PCP: Ximena Padilla MD Status: ADM IN Discharge Diet: No Restrictions Discharge Activity: May Not Drive, May Shower, Use Walker May shower in (days): 2 Ice area for (Minutes): 20 - each hour while awake. Weight Bearing Status: Weight bearing as tolerated Elevate: Operative Extremity Additional Activity Instructions:: Wear elastic stockings for 2 weeks after your surgery. Call your doctor if your incision/area has: Continuous Slow Oozing, Sudden Increased Bleeding, Increased Pain/ Swelling, Increased Redness, Foul Smelling Discharge Call your doctor if you observe: Fever of 101 or Higher, Coldness, Increased Pain - in extremity, Numbness or Tingling, Change in Color, Calf discomfort, Uncontrolled pain Change Dressing in (Days):: 0 - and daily as needed. Remove Dressing in (days):: 8 Cleanse incision/area with: Soap AND Water Allergies/Adverse Reactions: Allergies No Known Allergies Allergy (Verified 01/21/18 12:55) Medications to take at Discharge Ferrous Sulfate [Iron Supplement] 65 mg PO BID 09/21/13 Finasteride [Proscar] 5 mg PO DAILY 09/21/13 Gabapentin [Neurontin] 300 mg PO TIDCM 09/21/13 Levothyroxine Sodium [Synthroid] 112 mcg PO DAILY 09/21/13 Pravastatin [Pravachol] 80 mg PO DAILY 09/21/13 Tamsulosin HCl [Flomax] 0.4 mg PO QHS 09/21/13 Hydroxychloroquine [Plaquenil] 200 mg PO BIDCM 10/25/15 L.acidoph,Paracasei, B.lactis [Probiotic] 1 each PO DAILY 10/25/15 Cholecalciferol (Vitamin D3) [Vitamin D3] 2,000 unit PO QHS 01/21/18 Cyanocobalamin [Vitamin B12] 1,000 mcg PO BID 01/21/18 Metoprolol(XL)Succ [Toprol Xl (Beta Humberto)] 25 mg PO LUNCH 01/21/18 Naproxen Sodium [Aleve] 220 mg PO PRN PRN 01/21/18 Nifedipine [Procardia Xl] 30 mg PO PRN PRN 01/21/18 Ramipril 10 mg PO LUNCH 01/21/18 Acetaminophen [Tylenol] 1,000 mg PO Q8 #90 tab 02/09/18 Aspirin 325 mg PO BIDCM #60 tab 02/09/18 Oxycodone [Oxyir] 5 - 10 mg PO Q4H PRN PRN 7 Days #90 tab 02/09/18 The following prescriptions were given: Oxycodone [Oxyir] 5 - 10 mg PO Q4H PRN PRN 7 Days #90 tab PRN Reason: Mod-Severe Pain (4-10) Acetaminophen [Tylenol] 1,000 mg PO Q8 #90 tab Aspirin 325 mg PO BIDCM #60 tab Primary Care Physician: Ximena Padilla MD [Primary Care Provider] - Test Results: Test results from this visit will be discussed in further detail at your follow-up appointment, if applicable. Please Follow Up With: Fabian Kay, When: as scheduled (see pink sheet) 02/09/18800 <Electronically signed by Jerry Jimenez PA-C> Date Jerry Jimenez PA-C CC: Ximena Padilla MD BASIC METABOLIC Collected: 02/09/2018 Status: F Source: [place] PROFILE (B[place]) 6:04 AM [facility] [place] TYPE CODE TESTS RESULT OUT OF RANGE REFERENCE UNITS LAB L501.0100 74-106 mg/dL Normal GLU 92 Result Comment: Please note revised GLUCOSE reference range effective 2017. LAB L501.1000 7-18 mg/dL Normal BUN 16 LAB L501.1100 0.70-1.30 mg/dL Normal CREAT,SERUM 1.14 Result Comment: The validity of the calculated GFR AND GFRAA in patients over 70 years has not been determined. Clinical correlation is essential. LAB L501.1110 >60 mL/min Normal EST GFR 65 Result Comment: Non- GFR Calc LAB L501.1115 >60 mL/min Normal EST GFR - AA 79 Result Comment: GFR Calc LAB L501.1255 ml/min Normal Estimated CRCL 43.46 LAB L501.1300 10-20 RATIO Normal BUN/CRE 14.0 LAB L501.2200 8.5-10 mg/dL Low .1 CA 8.2 LAB L501.5300 136-14 mmol/L Normal 5 NA 142 LAB L501.5600 3.5-5. mmol/L Normal 1 K 4.4 LAB L501.5900 98-107 mmol/L High CL 108 LAB L501.6100 21.0-3 mmol/L Normal 2.0 CO2 27.0 LAB L501.6200 5-15 Normal GAP 7 Performed By: #### L500.2500 #### [facility] [address] [place], [address] CBC-COMPLETE BLOOD CNT Collected: 02/09/2018 Status: F Source: [place] NO DIFF 6:04 AM [facility] [place] TYPE CODE TESTS RESULT OUT OF RANGE REFERENCE UNITS LAB L100.1000 4.4-11.0 K/mm3 Normal WBC 6.6 LAB L100.1200 4.6-6.2 M/mm3 Low RBC 3.53 LAB L100.1300 13.0-16.5 g/dl Low HGB 10.2 LAB L100.1400 40-54 % Low HCT 31.1 LAB L100.1500 80-94 fL Normal MCV 88.1 LAB L100.1600 27.0-32.0 pg Normal MCH 28.9 LAB L100.1700 32-36 g/gl Normal MCHC 32.8 LAB L100.1810 11.6-14.6 % Normal RDW CV 14.2 LAB L100.1820 35.1-43.9 fl High RDW SD 44.5 LAB L100.1900 150-450 K/mm3 Normal PLT 176 LAB L100.2000 6.2-12.0 fl Normal MPV 11.1 Performed By: #### L100.0500 #### [facility] [address] [place], [address] CBC-COMPLETE BLOOD CNT Collected: 02/08/2018 Status: F Source: [place] NO DIFF 11:18 AM [facility] [place] Order Comment: Comments: To be done in PACU TYPE CODE TESTS RESULT OUT OF RANGE REFERENCE UNITS LAB L100.1000 4.4-11.0 K/mm3 Normal WBC 5.9 LAB L100.1200 4.6-6.2 M/mm3 Low RBC 3.79 LAB L100.1300 13.0-16.5 g/dl Low HGB 10.7 LAB L100.1400 40-54 % Low HCT 32.8 LAB L100.1500 80-94 fL Normal MCV 86.5 LAB L100.1600 27.0-32.0 pg Normal MCH 28.2 LAB L100.1700 32-36 g/gl Normal MCHC 32.6 LAB L100.1810 11.6-14.6 % Normal RDW CV 14.3 LAB L100.1820 35.1-43.9 fl High RDW SD 45.4 LAB L100.1900 150-450 K/mm3 Normal PLT 184 LAB L100.2000 6.2-12.0 fl Normal MPV 10.2 Performed By: #### L100.0500 #### [facility] [address] [place], [address] BASIC METABOLIC Collected: 02/08/2018 Status: F Source: [place] PROFILE (BMP) 11:18 AM [facility] [place] Order Comment: TO BE DONE IN PACU Comments: To be done in PACU TYPE CODE TESTS RESULT OUT OF RANGE REFERENCE UNITS LAB L501.0100 74-106 mg/dL High GLU 150 Result Comment: Fasting Glucose result greater than or equal to 126 mg/dL suggests DIABETES MELLITUS per A.D.A. criteria. Please note revised GLUCOSE reference range effective 2017. LAB L501.1000 7-18 mg/dL Normal BUN 13 LAB L501.1100 0.70-1.30 mg/dL Normal CREAT,SERUM 1.07 Result Comment: The validity of the calculated GFR AND GFRAA in patients over 70 years has not been determined. Clinical correlation is essential. LAB L501.1110 >60 mL/min Normal EST GFR 70 Result Comment: Non- GFR Calc LAB L501.1115 >60 mL/min Normal EST GFR - AA 85 Result Comment: GFR Calc LAB L501.1255 ml/min Normal Estimated CRCL 46.30 LAB L501.1300 10-20 RATIO Normal BUN/CRE 12.1 LAB L501.2200 8.5-10 mg/dL Low .1 CA 8.3 LAB L501.5300 136-14 mmol/L Normal 5 NA 140 LAB L501.5600 3.5-5. mmol/L Low 1 K 3.4 LAB L501.5900 98-107 mmol/L Normal CL 107 LAB L501.6100 21.0-3 mmol/L Normal 2.0 CO2 23.0 LAB L501.6200 5-15 Normal GAP 10 Performed By: #### L500.2500 #### [facility] [address] [place], [address] OPERATIVE REPORT Observed: 02/08/2018 Status: F Source: [place] 10:22 AM [facility] [place] [facility] Medical Records Department [address] [place] [address] Operative Report 02/08/18 1019 MR#: [id number] Acct: [id number] Name: CARRINGTON TIPTON Rep #: [id number] : 1935 82 From: Fabian Kay DO PCP: Ximena Padilla MD Status: ADM IN Y [place] [facility] Operative Report Date of Procedure: 02/08/18 Primary Surgeon/Physician: Fabian Kay sample taker operator: Jerry Jimenez PA-C sample taker operator: Pre-Operative Diagnosis: OA left knee Post-Operative Diagnosis: same Surgery/Procedure Performed: Left TKR Estimated Blood Loss: 25cc Specimen's Removed: bone Type of Anesthesia: spinal ASA Class: 3 Implants: [Borup Triathlon size 5 femur, size 6 tibia, 11 mm PS poly, 38 mm patella, all components cemented ] Indications: Patient has severe end-stage osteoarthritis diagnosed via x-rays in the knee. They have failed all forms of conservative measures including activity modification, injections, anti-inflammatories, use of assistive device. The patient has pain that affects on a daily basis and prevents him from doing things that they enjoyed. They have elected to undergo the above procedure. The risks of the procedure were discussed at length and their questions were answered. Procedure Description: The patient was greeted in the preoperative area. The [left ] knee was then marked with a surgical marker. Patient was then taken to or [address]. They were administered a dose of antibiotics as well as tranexamic acid. Once adequate anesthesia was obtained and airway was secured to placed in supine position on the operating room table. A well-padded tourniquet was placed on the affected extremity. Leg was then prepped and draped in the usual sterile fashion from the knee down. Ioban was used on the skin. Surgical timeout was then performed and confirmed with all present. Six-inch Esmarch was used to examine the limb and tourniquet was then inflated to 250 mmHg. A longitudinal incision was then planned and carried out in the anterior aspect of the knee. The dissection was then carried the length of the incision the extensor mechanism was identified. Standard medial parapatellar arthrotomy was then performed revealing severe eburnation of bone and periarticular osteophytes. There is complete loss of cartilage especially in the medial compartment with varus alignment. Anterior fat pad was removed for visualization purposes and the anterior medial aspect of the tibia was skeletonized for exposure to the knee. The knee was then flexed the patella was inverted. Opening reamer was then used in the femur approximately 1 cm anterior to the attachment of the PCL. The intramedullary valgus wand was then placed in the femur set at 5 of valgus. The distal femoral cutting jig was then applied to the femur with anticipated resection of approximately 8 mm. This was then made with a oscillating saw. The sizing guide was then placed referencing off the posterior condyles and also reference off the epicondylar axis. This was measured and the appropriate size 4-in-1 cutting jig was then applied to the distal femur. Anterior posterior cuts were made followed by the anterior and posterior chamfer cuts. These bony pieces and fragments were removed and placed on the back table. Posterior retractor was then utilized and the tibia was subluxed anteriorly. Extramedullary tibial alignment jig was then applied to the tibia referencing off the medial one third of the tibial tubercle the anterior tibial spine the middle aspect of the tibiotalar joint. Also reference off patient's siletz tribe slope. The tibial cutting jig was then pinned with anticipated resection of 2 mm off of the deficient medial tibial condyle. This cut was made with the oscillating saw. Once this was complete a laminar telephone triage nurse was utilized in both medial lateral meniscus were removed and a posterior capsular osteophytes were also removed. Posterior capsule release was performed in the posterior capsule as well as the geniculate arteries are treated with the aqua Gauri. The tibia was incised and the appropriate sized tibial tray was then pinned. The femoral box cutting jig was then applied to the femur and the box was prepared removing a portion of the intercondylar notch. The femoral trial was then placed and the knee was trialed. Full flexion-extension were easily achieved. The knee seemed to balance quite nicely. Any remaining osteophytes were removed at this time. Once this was complete the patella was everted and the Aguilar patella reaming device was then utilized the patella was then placed in the appropriate jig and reamer was then used to remove approximately 9 mm of the undersurface of the patella. A soft tissue remaining was in the way was removed and patella trial was then placed listed maintain excellent tracking using the no thumbs technique. The tibial tray at this point was punched to accommodate the fins of the final implant. At this point cement was mixed on the back table. The trial components were removed and the knee was copiously irrigated. Did use a cocktail of injection for postoperative pain control. The final components were then cemented in the standard fashion and excess cement was removed with cement removal tools and patellar clamp is placed in the patella. As the cement had cured in full extension tourniquet was deflated and hemostasis was perfect with Bovie cautery as well as the aqua Manus. Needle is once again trialed with different size polyethylenes to ensure the full range of motion was achieved as well as excellent balancing ligamentously was achieved. At this point the knee was copiously irrigated. Final implant was then inserted locking mechanism was engaged and confirmed to be locked. The arthrotomy was then closed with #1 Vicryl aggravate type fashion interrupted. Subcutaneous tissue was closed with 0 Vicryl and surgical radha were placed in the skin. A occlusive silver impregnated dressing was then applied followed by well-padded sterile dressing secured with an Alexander wrap. The patient was taken to the PACU in stable condition. No complications known at this time. Postoperatively we will maintain standard total knee postoperative protocol. The use of the physician periodicals library assistant was integral during this procedure. They assisted with positioning placement of the tourniquet retracting closure and placement of the dressing. The procedure would have been much more difficult without their expertise and assistance 02/08/18 1022 <Electronically signed by Fabian Kay DO> Date Fabian Kay DO CC: Ximena Padilla MD; Fabian Kay DO Signed TOTAL KNEE REPLACEMENT Observed: 02/08/2018 Status: F Source: [place] 12:00 AM [facility] [place] Patient: CARRINGTON TIPTON : 1935 (82/M) Acct Num: [id number] Phys: Fabian Kay DO Unit Num: [id number] Loc: MS3 CM604-0 Specimen: [id number] Received: 02/08/181326 Spec Type: TOTAL KNEE TISSUES 1 TISSUES: Knee, NOS GROSS DESCRIPTION Received is one container designated bone and soft tissue left knee. The specimen consists of multiple fragments of yin-yellow bone measuring in aggregate 17 x 12 x 2 cm. Also in the specimen container are multiple fragments of yellow-white soft tissue measuring in aggregate 8 x 6 x 1 cm. A number of bony fragments contain articular surfaces consistent with tibial plateau and femoral condyle and displaying prominent osteophyte formation, eburnation, and bone erosion. Pulp Operator sections are submitted in two cassettes as follows : 1 - soft tissue, 2 - bone after decalcification. / AM: 02/08/18 TC:5 CPT: 15691, 18307 HEADER OPERATION: Total knee replacement PRE-OP DIAGNOSIS: Osteoarthritis left knee TISSUE SUBMITTED: Bone and soft tissue MICROSCOPIC DESCRIPTION Slides are reviewed. MICROSCOPIC DIAGNOSIS Bone of left knee, total knee resection: Severe degenerative joint disease. Mild synovial hyperplasia with associated mild chronic inflammation. AM:alma 02/10/18 Signed [facility] 02/10/18 <signature on file> Performed By: #### PKNEE #### [facility] [address] [place] [address]. [place], [address] 12 LEAD ELECTROCARDIOGRAM Observed: 02/05/2018 Status: F Source: [place] 9:12 AM [facility] [place] [facility] Cardiovascular Services [address] [place] [address] [place] [facility] [place] 1351 MR#: [id number] Acct: [id number] Name: CARRINGTON TIPTON Rep #: [id number] : 1935 82 From: João Victoria MD Attending Dr: Fabian Kay DO Status: PRE IN Ordering Dr: Fabian Kay DO Date: 01/21/18 [place] [facility] [place] Sex: M C Admitted: Test Reason : Blood Pressure : / mmHG Vent. Rate : 064 BPM Atrial Rate : 064 BPM P-R Int : 254 ms QRS Dur : 080 ms QT Int : 398 ms P-R-T Axes : 058 021 046 degrees QTc Int : 410 ms Poor data quality, interpretation may be adversely affected Sinus rhythm with 1st degree A-V block Septal infarct , age undetermined Abnormal ECG Confirmed by JULIEN DUNN, JÃOO ([id number]), graphics editor ASYA REAVES ([id number]) on 01/27/2018 11:32:35 AM Referred By: Ximena Padilla Confirmed By:JOÃO VICTORIA MD 01/27/18 1132 Date João Victoria MD CC: Ximena Padilla MD; Fabian Modisher LOMBARDO Date Dictated: 01/21/18 135 Date Transcribed: 01/21/181350 Infection Prevention Specialist: Signed CBC-COMPLETE BLOOD CNT Collected: 01/21/2018 Status: F Source: [place] NO DIFF 2:00 PM [facility] [place] TYPE CODE TESTS RESULT OUT OF RANGE REFERENCE UNITS LAB L100.1000 4.4-11.0 K/mm3 Normal WBC 5.6 LAB L100.1200 4.6-6.2 M/mm3 Low RBC 4.12 LAB L100.1300 13.0-16.5 g/dl Low HGB 11.8 LAB L100.1400 40-54 % Low HCT 36.0 LAB L100.1500 80-94 fL Normal MCV 87.4 LAB L100.1600 27.0-32.0 pg Normal MCH 28.6 LAB L100.1700 32-36 g/gl Normal MCHC 32.8 LAB L100.1810 11.6-14.6 % Normal RDW CV 14.3 LAB L100.1820 35.1-43.9 fl High RDW SD 45.0 LAB L100.1900 150-450 K/mm3 Normal PLT 196 LAB L100.2000 6.2-12.0 fl Normal MPV 11.3 Performed By: #### L100.0500 #### [facility] [place], [address] BASIC METABOLIC Collected: 01/21/2018 Status: F Source: [place] PROFILE (BMP) 2:00 PM [facility] [place] TYPE CODE TESTS RESULT OUT OF RANGE REFERENCE UNITS LAB L501.0100 74-106 mg/dL Normal GLU 106 Result Comment: Fasting Glucose result from 100 to 125 mg/dL suggests IMPAIRED HOMEOSTASIS per A.D.A. criteria. Please note revised GLUCOSE reference range effective 2017. LAB L501.1000 7-18 mg/dL High BUN 20 LAB L501.1100 0.70-1.30 mg/dL Normal CREAT,SERUM 1.28 Result Comment: The validity of the calculated GFR AND GFRAA in patients over 70 years has not been determined. Clinical correlation is essential. LAB L501.1110 >60 mL/min Low EST GFR 57 Result Comment: Non- GFR Calc LAB L501.1115 >60 mL/min Normal EST GFR - AA 69 Result Comment: GFR Calc LAB L501.1255 ml/min Normal Estimated CRCL 38.70 LAB L501.1300 10-20 RATIO Normal BUN/CRE 15.6 LAB L501.2200 8.5-10 mg/dL Normal .1 CA 8.6 LAB L501.5300 136-14 mmol/L Normal 5 NA 142 LAB L501.5600 3.5-5. mmol/L Normal 1 K 4.3 LAB L501.5900 98-107 mmol/L Normal CL 106 LAB L501.6100 21.0-3 mmol/L Normal 2.0 CO2 25.0 LAB L501.6200 5-15 Normal GAP 11 Performed By: #### L500.2500, L501.9520 #### [facility] [address], [place], [id number] THYROID STIM HORMONE Collected: 01/21/2018 Status: F Source: [place] ([place] 2:[place] [facility] [place] CODE TESTS RESULT OUT OF RANGE REFERENCE UNITS LAB L501.9520 0.358-3.74 uIU/mL Normal TSH 0.63 Performed By: #### L500.2500, L501.9520 #### [facility] [address] [place], [address] Observed: 01/21/2018 Status: F Source: [place] MRSA/SAID SCREEN 2:00 PM [facility] [place]/SAID SCRN S. AUREUS S. aureus Negative MRSA MRSA Negative Performed By: #### M100.651 #### [facility] [address] [place], [address] CBC W/DIFF, AUTOMATED Collected: 12/04/2017 Status: F Source: [place] 10:23 AM [facility] [place] CODE TESTS RESULT OUT OF RANGE REFERENCE UNITS LAB L100.1000 4.4-11.0 K/mm3 Normal WBC 4.5 LAB L100.1200 4.6-6.2 M/mm3 Low RBC 4.11 LAB L100.1300 13.0-16.5 g/dl Low HGB 11.6 LAB L100.1400 40-54 % Low HCT 35.6 LAB L100.1500 80-94 fL Normal MCV 86.6 LAB L100.1600 27.0-32.0 pg Normal MCH 28.2 LAB L100.1700 32-36 g/gl Normal MCHC 32.6 LAB L100.1810 11.6-14.6 % Normal RDW CV 14.4 LAB L100.1820 35.1-43.9 fl High RDW SD 45.1 LAB L100.1900 150-450 K/mm3 Normal PLT 215 LAB L100.2000 6.2-12.0 fl Normal MPV 11.1 LAB L100.2100 47-70 % Normal NEUT% 59.7 LAB L100.2200 19-41 % Normal LY% 25.3 LAB L100.2300 0-10 % Normal MONO% 9.2 LAB L100.2400 0-5 % High EO% 5.1 LAB L100.2500 0-1 % Normal BASO% 0.7 LAB L100.2550 0.0-0.9 % Normal IM GRAN % 0.000 Result Comment: IG% - Immature Granulocytes (promyelocytes, myelocytes and metamyelocytes) > 1% indicates that a LEFT SHIFT is Present. LAB L100.2620 2.0-7.7 X10 3/uL Normal Absolute Neut 2.7 LAB L100.2720 0.83-4.51 X10 3/ul Normal Absolute Lymph 1.13 Performed By: #### L100.0100 #### [facility] [address] [place], [place], [address] COMPREHENSIVE METABOLIC Collected: 12/04/2017 Status: F Source: [place] [facility] 10:23 AM [facility] [place] CODE TESTS RESULT OUT OF RANGE REFERENCE UNITS LAB L501.0100 74-106 mg/dL Normal GLU 75 Result Comment: Please note revised GLUCOSE reference range effective 2017. LAB L501.1000 7-18 mg/dL Normal BUN 17 LAB L501.1100 0.70-1.30 mg/dL Normal CREAT,SERUM 1.10 Result Comment: The validity of the calculated GFR AND GFRAA in patients over 70 years has not been determined. Clinical correlation is essential. LAB L501.1110 >60 mL/min Normal EST GFR 68 Result Comment: Non- GFR Calc LAB L501.1115 >60 mL/min Normal EST GFR - AA 82 Result Comment: GFR Calc LAB L501.1300 10-20 RATIO Normal BUN/CRE 15.5 LAB L501.1500 6.4-8.2 g/dL T Normal PROT 7.2 LAB L501.1800 3.2-5.0 g/dL Normal ALB 3.8 LAB L501.1950 2.2-4.2 g/dL Normal GLOB 3.4 LAB L501.2000 0.9-2.4 RATIO Normal A/G 1.1 LAB L501.2200 8.5-10.1 mg/dL CA Normal 8.7 LAB L501.4100 15-37 U/L Normal AST 20 LAB L501.4305 45-117 U/L Normal ALK P 57 LAB L501.4405 16-61 U/L Normal ALT 25 LAB L501.4600 0.20-1.00 mg/dL T Normal BILI 0.40 LAB L501.5300 136-145 mmol/L NA Normal 141 LAB L501.5600 3.5-5.1 mmol/L K Normal 4.1 LAB L501.5900 98-107 mmol/L CL Normal 106 LAB L501.6100 21.0-32.0 mmol/L Normal CO2 26.0 LAB L501.6200 5-15 Normal GAP 9 Performed By: #### L500.4050 #### [facility] [address] [place], [address] PROGRESS Observed: 06/06/2017 Status: COMPLETED Source: [place] 1:40 PM [facility] OTHER CAMPUS REPOSITORY HNO ID: [id number] Author: Ovidio Escamilla Barron Service: (none) Author Type: Physician Type: Progress Notes Filed: 06/06/2017 1:42 PM Note Text: This patient is seen back today discuss his most recent carotid CT angiogram. 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 Despite this fact his last 2 carotid duplex examinations that were performed at the [facility] have shown artery is patent with moderate stenosis. I'm not sure why there is this discrepancy and I discussed this at length with the patient and his . His patient's has numerous questions about what some of the terminology on the CT scan means and I answered those questions for her. I have reviewed the CT scan in going to have uploaded into our system so I can look at all the images but the interpretation is rather straightforward that his left internal artery is occluded. With this being the case I tell him that I still think that the most appropriate way to follow his right internal carotid artery is to do ultrasound and not exposing to ionizing radiation we are going to try this one more time this next year and if we still get confusing data I'm going to have to take the ultrasound with the CT scan and asked the global safety officer to explain the discrepancy. All of this is discussed with the patient and he seems to understand this I tell him that we will follow-up with him in 1 year after the ultrasound has been performed I answer what questions patient's have and tell him that we will see him next year.I spent 15 minutes in the visit, with more than 50% of the total looj-wb-bdgl time of the visit in counseling / coordination of care. ARUN Observed: 06/05/2017 Status: COMPLETED Source: [place] 11:30 AM [facility] REPOSITORY Office Visit (AGMIL) CARRINGTON TIPTON ([id number]) 1935 M Date Time Provider Department 06/05/17 11:30 AM OVIDIO MART During your visit today, we recorded the following information about you: Pulse Respiration Blood pressure Weight 74/minute 18/minute 124/70 81.6 kg Height 1.651 m Ovidio Mart MD 06/06/2017 1:42 PM Signed This patient is seen back today discuss his most recent carotid CT angiogram. 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 Despite this fact his last 2 carotid duplex examinations that were performed at the [facility] have shown artery is patent with moderate stenosis. I'm not sure why there is this discrepancy and I discussed this at length with the patient and his . His patient's has numerous questions about what some of the terminology on the CT scan means and I answered those questions for her. I have reviewed the CT scan in going to have uploaded into our system so I can look at all the images but the interpretation is rather straightforward that his left internal artery is occluded. With this being the case I tell him that I still think that the most appropriate way to follow his right internal carotid artery is to do ultrasound and not exposing to ionizing radiation we are going to try this one more time this next year and if we still get confusing data I'm going to have to take the ultrasound with the CT scan and asked the global safety officer to explain the discrepancy. All of this is discussed with the patient and he seems to understand this I tell him that we will follow-up with him in 1 year after the ultrasound has been performed I answer what questions patient's have and tell him that we will see him next year.I spent 15 minutes in the visit, with more than 50% of the total uwld-bg-uurz time of the visit in counseling / coordination of care. 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 PROBIOTIC ORAL Take by mouth once daily. TYLENOL ARTHRITIS ORAL Take 650 mg by mouth once agnieszka* HYDROCHLOROTHIAZIDE 25 MG TAB* Take 12.5 mg by mouth once da* PRAVASTATIN 80 MG TABLET Take 80 mg by mouth once oleg* TAMSULOSIN 0.4 MG CAPSULE Take 0.4 mg by mouth. LEVOTHYROXINE 200 MCG TABLET Take 100 mcg by mouth daily b* RISEDRONATE 150 MG TABLET Take 150 mg by mouth once too* ASPIRIN 81 MG TABLET,DELAYED * Take 81 mg by mouth once oleg* FERROUS SULFATE 325 MG (65 MG* Take 325 mg by mouth twice da* GABAPENTIN 300 MG CAPSULE Take 300 mg by mouth once agnieszka* TRAMADOL 50 MG TABLET Take 50 mg by mouth every 6 h* FINASTERIDE 5 MG TABLET Take 5 mg by mouth once daily. Problem List As Of Date 06/05/2017 Noted Resolved Anemia [D64.9] INVALID FOR* Hypothyroid [E03.9] Hypertension [I10] BPH (benign prostatic hyperplasia) [N40.0] Stenosis of both internal carotid arteries [I65* History of skin cancer [Z85.828] Hypercholesterolemia [E78.00] Vitamin B12 deficiency [E53.8] Disposition: Return in about 1 year (around 06/05/2018) for Yearly check up with testing, Carotid stenosis. Follow-up and Disposition History Recorded Letter Text Encounter Status:Closed by OVIDIO MART MD on 06/06/17 COMPREHENSIVE METABOLIC Collected: 05/27/2017 Status: F Source: [place] 9:[place] AM [facility] [place] CODE TESTS RESULT OUT OF RANGE REFERENCE UNITS LAB L501.0100 74-106 mg/dL Normal GLU 93 Result Comment: Please note revised GLUCOSE reference range effective 2017. LAB L501.1000 7-18 mg/dL Normal BUN 15 LAB L501.1100 0.70-1.30 mg/dL High CREAT,SERUM 1.32 Result Comment: The validity of the calculated GFR AND GFRAA in patients over 70 years has not been determined. Clinical correlation is essential. LAB L501.1110 >60 mL/min Low EST GFR 55 Result Comment: Non- GFR Calc LAB L501.1115 >60 mL/min Normal EST GFR - AA 67 Result Comment: GFR Calc LAB L501.1300 10-20 RATIO Normal BUN/CRE 11.4 LAB L501.1500 6.4-8.2 g/dL T Normal PROT 7.3 LAB L501.1800 3.2-5.0 g/dL Normal ALB 3.6 LAB L501.1950 2.2-4.2 g/dL Normal GLOB 3.7 LAB L501.2000 0.9-2.4 RATIO Normal A/G 1.0 LAB L501.2200 8.5-10.1 mg/dL CA Normal 8.7 LAB L501.4100 15-37 U/L Normal AST 19 LAB L501.4305 45-117 U/L Normal ALK P 59 LAB L501.4405 16-61 U/L Normal ALT 20 Result Comment: Please note revised ALT reference range effective 2017. LAB L501.4600 0.20-1.00 mg/dL Normal T BILI 0.50 LAB L501.5300 136-145 mmol/L Normal NA 139 LAB L501.5600 3.5-5.1 mmol/L Normal K 4.1 LAB L501.5900 98-107 mmol/L Normal CL 105 LAB L501.6100 21.0-32.0 mmol/L Normal CO2 28.0 LAB L501.6200 5-15 Normal GAP 6 Performed By: #### L500.4050 #### [facility] [address] [place], [address] CBC W/DIFF, AUTOMATED Collected: 05/27/2017 Status: F Source: [place] 9:[place] [facility] [place] CODE TESTS RESULT OUT OF RANGE REFERENCE UNITS LAB L100.1000 4.4-11.0 K/mm3 Normal WBC 5.3 LAB L100.1200 4.6-6.2 M/mm3 Low RBC 3.97 LAB L100.1300 13.0-16.5 g/dl Low HGB 11.5 LAB L100.1400 40-54 % Low HCT 34.4 LAB L100.1500 80-94 fL Normal MCV 86.6 LAB L100.1600 27.0-32.0 pg Normal MCH 29.0 LAB L100.1700 32-36 g/gl Normal MCHC 33.4 LAB L100.1810 11.6-14.6 % High RDW CV 14.9 LAB L100.1820 35.1-43.9 fl High RDW SD 46.5 LAB L100.1900 150-450 K/mm3 Normal PLT 182 LAB L100.2000 6.2-12.0 fl Normal MPV 11.9 LAB L100.2100 47-70 % Normal NEUT% 59.6 LAB L100.2200 19-41 % Normal LY% 22.6 LAB L100.2300 0-10 % High MONO% 11.3 LAB L100.2400 0-5 % High EO% 5.7 LAB L100.2500 0-1 % Normal BASO% 0.8 LAB L100.2550 0.0-0.9 % Normal IM GRAN % 0.000 Result Comment: IG% - Immature Granulocytes (promyelocytes, myelocytes and metamyelocytes) > 1% indicates that a LEFT SHIFT is Present. LAB L100.2620 2.0-7.7 X10 3/uL Normal Absolute Neut 3.2 LAB L100.2720 0.83-4.51 X10 3/ul Normal Absolute Lymph 1.20 Performed By: #### L100.0100 #### [facility] [address] [facility] [place], [address] CTA NECK W/WO Observed: 2017 Status: F Source: [place] CONTRAST 2:45 PM [facility] [place] [facility] Imaging Services [address] [place] [address] CTA Neck W/WO Contrast MR#: [id number] Acct: [id number] Name: CARRINGTON TIPTON Rep #: [id number] : 1935 M 82 From: Renato Barrow MD PCP: Ximena Padilla MD Status: REG CLI Study: CTA Neck W/WO Contrast Date of Exam: 05/05/17 Exam# [id number] Ordering Dr: Ovidio Mart MD CTA of the neck INDICATION: Bilateral carotid stenosis. TECHNIQUE: CTA of the carotids was performed in the axial projection scanning in a dynamically enhanced fashion from the base of skull through the pulmonary apices followed by sagittal and coronal reconstruction Radiographic technique was optimized to limit patient radiation dose FINDINGS: There is mild diffuse soft plaque seen within the right common carotid. At the level of the carotid bulb there is moderate soft and calcific plaque but no significant stenosis. There is also mild calcific plaque in the origin of the internal carotid There is mild diffuse soft plaque seen within the left common carotid. At the level of the carotid bulb there is mild calcific and soft plaque. However, there is occlusion of the left internal carotid at its origin. There is no contrast seen within the more distal internal carotid, petrous or cavernous carotid. The vertebrals are codominant. There is mild calcific plaque within the distal left vertebral CT/CTA Neck W/WO Contrast IMPRESSION: Occlusion of the left internal carotid without reconstitution distally. Moderate calcific plaque of the right carotid bulb without evidence for hemodynamically significant stenosis. Electronically Signed: Renato Barrow MD at 18:17 EST , Service support , CC: OVIDIO MART MD; Ximena Padilla MD Infection Prevention Specialist: Signed BASIC METABOLIC Collected: 05/01/2017 Status: F Source: [place] (BMP) 9:39 AM [facility] [place] CODE TESTS RESULT OUT OF RANGE REFERENCE UNITS LAB L501.0100 74-106 mg/dL Normal GLU 84 Result Comment: Please note revised GLUCOSE reference range effective 2017. LAB L501.1000 7-18 mg/dL High BUN 19 LAB L501.1100 0.70-1.30 mg/dL High CREAT,SERUM 1.44 Result Comment: The validity of the calculated GFR AND GFRAA in patients over 70 years has not been determined. Clinical correlation is essential. LAB L501.1110 >60 mL/min Low EST GFR 50 Result Comment: Non- GFR Calc LAB L501.1115 >60 mL/min Normal EST GFR - AA 60 Result Comment: GFR Calc LAB L501.1300 10-20 RATIO Normal BUN/CRE 13.2 LAB L501.2200 8.5-10.1 mg/dL CA Normal 8.5 LAB L501.5300 136-145 mmol/L NA Normal 140 LAB L501.5600 3.5-5.1 mmol/L K Normal 4.6 LAB L501.5900 98-107 mmol/L CL Normal 104 LAB L501.6100 21.0-32.0 mmol/L Normal CO2 28.0 LAB L501.6200 5-15 Normal GAP 8 Performed By: #### L500.2500 #### [facility] [address] [place], [place], [address] [place] CREATININE Collected: 04/13/2017 Status: F Source: [place] 1:54 PM [facility] REPOSITORY TYPE CODE TESTS RESULT OUT OF REFERENCE UNITS RANGE LAB WCRET 0.7-1.4 mg/dL [place] High Creatinine 1.6 SERUM CREATININE AND Collected: 04/09/2017 Status: F Source: [place] GFR 12:06 PM [facility] [place] CODE TESTS RESULT OUT OF RANGE REFERENCE UNITS LAB L501.1100 0.70-1.30 mg/dL Normal 1.19 CREAT,SERUM Result Comment: The validity of the calculated GFR AND GFRAA in patients over 70 years has not been determined. Clinical correlation is essential. LAB L501.1110 >60 mL/min Normal EST GFR 62 Result Comment: Non- GFR Calc LAB L501.1115 >60 mL/min Normal EST GFR - AA 75 Result Comment: GFR Calc Performed By: #### L501.1105 #### [facility] [address] [place], [address] PROGRESS Observed: 03/29/2017 Status: COMPLETED Source: [place] 11:38 AM [facility] OTHER CAMPUS REPOSITORY HNO ID: [id number] Author: Ovidio Mart Service: (none) Author Type: Physician Type: Progress Notes Filed: 03/29/2017 11:48 AM Note Text: This patient is seen today in ongoing assessment evaluation of his carotid artery stenosis. Now couple years ago he had a CT angiogram which documented a string sign of his left internal carotid artery. Interestingly the last 2 ultrasounds it abutted none have called this to be a very low-grade stenosis without any mention of any type of stenosis in the carotid artery. With this being the case and the significant discrepancy that we see here we probably are going to have to do another CT angiogram to truly evaluate exactly what is happening here. It is possible that the previous severe stenosis was secondary to a dissection and that this is healed and no longer causes any significant stenosis. This would be important to know. However if he does have ongoing evidence of the long segment string sign that he had before ongoing medical management would be to therapy of choice. He is asymptomatic at this point in time. He shows no evidence or signs of stroke or strokelike symptomatology. He has had no TIAs. He denies any amaurosis fugax. He denies any difficulty with speech numbness or weakness. All in all this is an asymptomatic carotid stenosis and based on the current Doppler there is nothing needed other than ongoing medical management which the patient is on with a statin agent and an antiplatelet agent. However it would be good to know if this is still a string sign and I do think that the CT angiogram is warranted at this point. We are going to go ahead and get this scan follow-up with the patient here in the [place] office after it has been performed. CHRISSIEOV Observed: 03/27/2017 Status: COMPLETED Source: [place] 11:00 AM [facility] REPOSITORY Office Visit (AGMIL) CARRINGTON TIPTON ([id number]) 1935 M Date Time Provider Department 03/27/17 11:00 AM OVIDIO MART During your visit today, we recorded the following information about you: Pulse Respiration Blood pressure Weight 74/minute 18/minute 118/66 81.6 kg Height 1.651 m Ovidio Mart MD 03/29/2017 11:48 AM Signed This patient is seen today in ongoing assessment evaluation of his carotid artery stenosis. Now couple years ago he had a CT angiogram which documented a string sign of his left internal carotid artery. Interestingly the last 2 ultrasounds it abutted none have called this to be a very low-grade stenosis without any mention of any type of stenosis in the carotid artery. With this being the case and the significant discrepancy that we see here we probably are going to have to do another CT angiogram to truly evaluate exactly what is happening here. It is possible that the previous severe stenosis was secondary to a dissection and that this is healed and no longer causes any significant stenosis. This would be important to know. However if he does have ongoing evidence of the long segment string sign that he had before ongoing medical management would be to therapy of choice. He is asymptomatic at this point in time. He shows no evidence or signs of stroke or strokelike symptomatology. He has had no TIAs. He denies any amaurosis fugax. He denies any difficulty with speech numbness or weakness. All in all this is an asymptomatic carotid stenosis and based on the current Doppler there is nothing needed other than ongoing medical management which the patient is on with a statin agent and an antiplatelet agent. However it would be good to know if this is still a string sign and I do think that the CT angiogram is warranted at this point. We are going to go ahead and get this scan follow-up with the patient here in the [place] office after it has been performed. Referring Provider: XIMENA PADILLA [[id number]] Allergies As of Date: 03/27/2017 (No Known Allergies) Date Reviewed: 03/27/2017 Reviewed by: Filomena Parry LPN - Fully Assessed Reason for Visit: Stenosis [1326] Cmt: Carrington is here for follow up carotid stenosis. 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 Discontinue saline lock post exam. If Pt. has a central line or IVAD, may access for administration according to line specific nursing protocol. Once exam is complete flush line and de- access according to line specific nursing protocol in the CT contrast administration guidelines link.Disp: 1 EachRfl: 0 Prescriptions as of 03/27/2017 Sig: ALLOPURINOL 100 MG TABLET Take 100 mg by mouth once agnieszka* NIFEDIPINE ER 30 MG TABLET,EX* Take 30 mg by mouth once oleg* RAMIPRIL 10 MG CAPSULE Take 10 mg by mouth once oleg* METOPROLOL SUCCINATE ER 25 MG* Take 25 mg by mouth once oleg* HYDROXYCHLOROQUINE 200 MG TAB* Take by mouth twice daily. PROBIOTIC ORAL Take by mouth once daily. TYLENOL ARTHRITIS ORAL Take 650 mg by mouth once agnieszka* HYDROCHLOROTHIAZIDE 25 MG TAB* Take 12.5 mg by mouth once da* PRAVASTATIN 80 MG TABLET Take 80 mg by mouth once oleg* TAMSULOSIN 0.4 MG CAPSULE Take 0.4 mg by mouth. LEVOTHYROXINE 200 MCG TABLET Take 100 mcg by mouth daily b* RISEDRONATE 150 MG TABLET Take 150 mg by mouth once too* ASPIRIN 81 MG TABLET,DELAYED * Take 81 mg by mouth once oleg* FERROUS SULFATE 325 MG (65 MG* Take 325 mg by mouth twice da* GABAPENTIN 300 MG CAPSULE Take 300 mg by mouth once agnieszka* TRAMADOL 50 MG TABLET Take 50 mg by mouth every 6 h* FINASTERIDE 5 MG TABLET Take 5 mg by mouth once daily. IV CONTRAST (RADIOLOGY PROCED* CTA Head/Neck W No IV access,* Problem List As Of Date 03/27/2017 Noted Resolved Anemia [D64.9] INVALID FOR* Hypothyroid [E03.9] Hypertension [I10] BPH (benign prostatic hyperplasia) [N40.0] Carotid stenosis, bilateral [I65.23] History of skin cancer [Z85.828] Hypercholesterolemia [E78.00] Vitamin B12 deficiency [E53.8] Prescriptions ordered this encounter Disp Refills Start End IV CONTRAST (RADIOLOGY PROCEDURE) 1 Ea* 0 03/29/2017 03/30/2017 Class: In Office Sig: CTA Head/Neck W No IV access, insert saline lock prior to the sedation, infusion, injection for imaging exam. Discontinue saline lock post exam. If Pt. has a central line or IVAD, may access for administration according to line specific nursing protocol. Once exam is complete flush line and de-access according to line specific nursing protocol in the CT contrast administration guidelines link. Letter Text Encounter Status:Closed by OVIDIO MART MD on 03/29/17 RENAL ARTERY DUPLEX Observed: 03/22/2017 Status: F Source: [place] 10:12 AM [facility] [place] [facility] Cardi[place] [address] Renal Artery Duplex Ultrasound 03/18/17 0946 MR#: [id number] Acct: [id number] Name: CARRINGTON TIPTON Rep #: [id number] : 1935 81 From: Vincent Polanco MD Attending Dr: Ximena Padilla MD Status: REG CLI Ordering Dr: Ximena Padilla MD Date: 03/18/17 Location: CVS Sex: M C Admitted: Reason For Study: Renal Insufficiency Right Renal Artery Left Renal Artery Right renal artery ostium 74.6/13.4 Left renal artery ostium 103.0/25.1 RSV/EDV. PSV/EDV. Right renal artery proximal Left renal artery proximal PSV/EDV 89.2/16.5 PSV/EDV. 114.0/29.2 . Right renal artery mid 88.6/18.9 Left renal artery mid 113.0/30.1 PSV/EDV. PSV/EDV . Right renal artery distal Left renal artery distal 115.0/25.5 110.0/22.0 PSV/EDV. PSV/EDV. Right RAR 1.3. Left RAR 1.4. Right Renal Parenchyma Left Renal Parenchyma Upper Pole Medula 38.2/10.7 Left upper pole medulla 31.8/5.8 PSV/EDV. PSV/EDV . Right upper pole medulla EDR .28 . Left upper pole medulla EDR .18 . Right upper pole medulla R.I. .72 . Left upper pole medulla R.I. .82 . Upper Matt Cortx 25.4/6.4 PSV/EDV. UP Cortex 20.5/5.8 PSV/EDV. Right upper pole cortex EDR .25 . Left upper pole cortex EDR .28 . Right upper pole cortex R.I. .75 . Left upper pole cortex R.I. .72 . Right lower Pole medulla 27.2/7.0 Left lower Pole medulla 19.3/5.8 PSV/EDV . PSV/EDV . Right lower pole medulla EDR .26 . Left lower pole medulla EDR .30 . Right lower pole medulla R.I. .74 . Left lower pole medulla R.I. .70 . Lower Pole Cortex 18.6/5.5 PSV/EDV. Lower Pole Cortx 19.3/5.2 PSV/EDV. Right lower pole cortex EDR .30 . Left lower pole cortex EDR .27 . Right lower pole cortex R.I. .70 . Left lower pole cortex R.I. .73 . Right Renal Hilar Left Renal Hilar Right Hilar avg 84.4/16.0 PSV/EDV. LT Hilar avg 45.2/10.7 PSV/EDV . Right hilar acceleration time 73 Left hilar acceleration time 51 m/sec. m/sec. Right Renal Dimensions Left Renal Dimensions Right kidney size 10.0 cm . Left kidney size 9.0 cm . Right cortical dimension 1.5 cm . Left cortical dimension 1.5 cm . Aorta Proximal abdominal aorta 1.9 x 1.8 cm . Distal abdominal aorta 1.6 x 1.6 cm . Proximal abdominal aorta peak systolic velocity is 83.9 cm/sec . Distal abdominal aorta peak systolic velocity is 78.4 cm/sec . Interpretation Summary 1. Bilateral renal arteries with <60% stenosis. Ordering Physician: Ximena Padilla Referring Physician: OVIDIO MART Performed By: Sarah Snowden RVT 03/22/17 1011 Date Vincent Polanco MD CC: OVIDIO MART MD; Ximena Padilla MD Date Dictated: 03/18/17 0946 Date Transcribed: 03/22/17 1011 Infection Prevention Specialist: Signed CAROTID DUPLEX Observed: 03/22/2017 Status: F Source: [place] [facility] 10:10 AM [facility] [place] Cardiovascular Services [address] [place] [address] Carotid Duplex Ultrasound 03/18/17 1006 MR#: [id number] Acct: [id number] Name: CARRINGTON TIPTON Rep #: [id number] : 1935 81 From: Vincent Polanco MD Attending Dr: Ximena Padilla MD Status: REG CLI Ordering Dr: Ximena Padilla MD Date: 03/18/17 Location: CVS Sex: M C Admitted: Reason For Study: Carotid stenosis Rt. Velocities/BP Lt. Velocities/BP Prox CCA 76.2/19.9 cm/sec. Prox CCA 137.0/23.6 cm/sec. Mid CCA 85.6/20.5 cm/sec. Mid CCA 130.0/25.1 cm/sec. Dist CCA 92.0/21.1 cm/sec. Dist CCA 115.0/25.1 cm/sec. Prox ICA 95.6/30.1 cm/sec. Prox ICA 50.7/11.4 cm/sec. Mid ICA 79.7/24.5 cm/sec. Mid ICA 54.2/12.6 cm/sec. Dist ICA 80.6/29.4 cm/sec. Dist ICA 45.6/9.8 cm/sec. Rt. ICA/CCA = 1.1. Lt. ICA/CCA = .42. Prox ECA 136.0/24.7 cm/sec. Prox ECA 139.0/25.9 cm/sec. Rt. Vert. 57.5/16.4 cm/sec. Lt. Vert. 47.9/18.1 cm/sec. Right Extracranial There is intimal thickening but no significant atherosclerotic plaque noted in the right common carotid artery. There is heterogeneous, irregular atherosclerotic plaque noted in the right internal carotid artery. There is heterogeneous, irregular atherosclerotic plaque noted in the right external carotid artery. Antegrade flow is noted in the right vertebral artery. Left Extracranial There is intimal thickening but no significant atherosclerotic plaque noted in the left common carotid artery. There is heterogeneous, irregular atherosclerotic plaque noted in the left internal carotid artery. LICA small in caliber. There is heterogeneous, irregular atherosclerotic plaque noted in the left external carotid artery. Antegrade flow is noted in the left vertebral artery. Procedure Carotid Duplex 66748. Exam performed in department. Interpretation Summary Mild (<50%) stenosis right extracranial internal carotid. Mild (<50%) stenosis left extracranial internal carotid. Flow within the vertebral arteries is antegrade bilaterally. Ordering Physician: Ximena Padilla Referring Physician: OVIDIO MART Performed By: Sarah Snowden RVT 03/22/17 1009 Date Vincent Polanco MD CC: OVIDIO MART MD; Ximena Padilla MD Date Dictated: 03/18/17 1006 Date Transcribed: 03/22/17 1009 Infection Prevention Specialist: Signed ALLERGIES ALLERGIES DATE TYPE / CODE NAME / CODE REACTION SEVERITY SOURCE 01/21/2018 Drug No Known Unknown [facility] Allergy/416 Allergies/Z32404 Hospital 167015(SNOM 0388(RXNORM) Repository ED CT) Drug NO KNOWN [facility] Class/35410 ALLERGIES Other [place] 1003(SNOMED Repository CT) /[id number] NO KNOWN [facility] 6(SNOMED ALLERGIES Health System CT) Repository ENCOUNTERS ENCOUNTERS ADMIT/DISCHARGE ACCOUNT NUMBER ADMITTING ENCOUNTER LOCATION SOURCE CLASS 02/08/2018/02/10/20 [id number] [place] [place] 18 [facility] ding:CC8Uuws Repository : LB370Sjr: 1 01/21/2018 [id number] Ambulatory BMSBuilding: [facility] Repository 12/04/2017 [id number] Ambulatory [facility] ding:MTLAB Repository 06/05/2017/06/06/19 [id number] Ambulatory [address] Other [place] Repository 06/05/2017/06/06/19 [id number] Ambulatory [address] MEDICAL Repository CENTERBuildi ng:AGWM 06/05/2017 [id number] Ambulatory [facility] MEDICAL Repository CENTERBuildi ng:AGVASACC 05/27/2017 [id number] Ambulatory [facility] ding:MTLAB Repository 05/08/2017 [id number] Ambulatory [facility] MEDICAL Repository CENTERBuildi ng:AGWM 2017 [id number] Ambulatory [facility] ding:CT Repository 04/13/2017/04/13/19 [id number] Ambulatory [address] Main [place] Repository 04/13/2017 [id number] Ambulatory [facility] Repository 04/10/2017 [id number] Ambulatory [facility] ding:LAB.FUT Repository URE 04/09/2017 [id number] Ambulatory [facility] ding:MTLAB Repository 03/27/2017 [id number] Ambulatory [facility] Repository 03/27/2017 [id number] Ambulatory [facility] MEDICAL Repository CENTERBuildi ng:AGWM 03/18/2017 [id number] [facility] ding:CVS Repository PAYERS PAYERS ENCOUNTER GUARANTOR PAYER SUBSCRIBER SOURCE 02/08/2018 CARRINGTON L Primary [facility] Insurance:SHILA CHINGOB: [address] Number: [id number]-[facility] [address]Cyv: [id number] Repository Date:2735-05-80UM BOX ( [id number] [place] [address]CZ: 02/08/2018 Secondary NOT GIVENUNK [place] Insurance:SELF PAY [facility] Number: Effective Repository Date:2017-11-02 01/21/2018 CARRINGTON L Primary CARRINGTON L [place] [id number] CR Insurance:AETNA NOELSDOB: [address] Number: [id number]-Lea [facility] [address]Rfy: [id number] Repository Date:7343-30-41QJ B[address] () [id number] [place]izSUZ[place] [address]MW: 01/21/2018 Secondary NOT GIVENUNK [place] Insurance:SELF PAY [facility] Number: Effective Repository Date:2018-01-21 12/04/2017 Carrington L Primary Carrington L [place] [id number] Cr Insurance:AETNA HumzaOB: [address] Number: [id number]-Lea General Hospital [address]Vcb: [id number] Repository Date:0924-76-92KT BOX () [id number] [place] [address]TJ: 12/04/2017 Secondary NOT GIVENUNK [place] Insurance:SELF PAY [facility] Number: Effective Repository Date:2017-12-04 06/05/2017 CARRINGTON L Primary CARRINGTON L [facility]: Insurance:AETNA HUMZAOB: Health System MEDICARE [facility] [id number] Number: [place], [id number] [place] [address]Umw: Date: (HP) 06/05/2017 CARRINGTON L Primary CARRINGTON L [facility] HASTINGSDOB: Insurance:AETNA HUMZAOB: Health System MEDICARE [facility] [id number] Number: [place], [id number] [place] [id number]: Date: (HP) 05/27/2017 Carrington L Primary Carrington L [place] [id number] Cr Insurance:AETNA HastingsDOB: [address] Number: [id number]-Lea [facility] Hospital [address]Zqn: [id number] Repository Date:1426-40-28DA [address] () [id number] [place], [place] [address]CH: 05/27/2017 Secondary NOT GIVENUNK [place] Insurance:SELF PAY [facility] Number: Effective Repository Date:2017-05-27 05/08/2017 CARRINGTON L Primary CARRINGTON L [facility]: Insurance:AETNA HASEVELINASDOB: Health System MEDICARE PPOPolicy [id number] [facility] [address] Number: [address] [place] [address] [id number] [place] [id number]: Date: () 2017 Carrington L Primary Carrington L [place] [id number] Cr Insurance:AETNA HasevelinasDOB: [address] Number: [id number]-Lea General Hospital [address]Ynq: [id number] Repository Date:1980-01-45KA [address]OX () [id number] PASSUZY [place] [address]HD: 2017 Secondary NOT GIVENUNK [place] Insurance:SELF PAY [facility] Number: Effective Repository Date:2017-04-27 04/10/2017 Carrington L Primary Carrington L [place] [id number] Insurance:AETNA HasevelinasDOB: [address] Number: [id number]-Lea General Hospital [address]Vgr: [id number] Repository Date:7938-22-65TQ BOX () [id number] PASSUZY [place] [address]CW: 04/10/2017 Secondary NOT GIVENUNK [place] Insurance:SELF PAY [facility] Number: Effective Repository Date:2017-04-10 04/09/2017 Carrington L Primary Carrington L [place] [id number] Cr Insurance:AETJONATHAN ChingOB: [address] Number: [id number]-[facility] [address]Jqd: [id number] Repository Date:0467-98-25ZU BOX () [id number] [place] [address]PF: 04/09/2017 Secondary NOT GIVENUNK [place] Insurance:SELF PAY [facility] Number: Effective Repository Date:2017-04-09 03/27/2017 CARRINGTON L Primary CARRINGTON L [facility]: Insurance:AEAL CHINGOB: Health System MEDICARE PPOPolicy [id number] Regional Medical Center Number: [address] [place] [address] [id number] [place] [id number]: Date: () 03/18/2017 Carrington L Primary Carrington L [place] [id number] Cr Insurance:SHILA ChingOB: [address] Number: [id number]-Lea [facility] Hospital [address]Guf: [id number] Repository Date:1565-93-97GX BOX () [id number] SU[place] [address]BP: 03/18/2017 Secondary NOT GIVENUNK [place] Insurance:SELF PAY [facility] Number: Effective Repository Date:2017-03-10
== END 2018-02-09 14:13 | disposition home or self-care (01) | DRG 470 ==
LOC: ACINP 06:15 → MS3 02-09 07:47
PROVIDERS: Anesthesiology; Admitting Provider Orthopaedic Surgery; Family Provider Internal Medicine; PCP Internal Medicine; Referring Provider Internal Medicine; Visit Provider Orthopaedic Surgery
PROC: 0SRD0J9 Replacement of Left Knee Joint with Synthetic Substitute, Cemented, Open Approach (ICD-10-PCS; CPT 27447; principal; 2018-02-08 08:35)
DX: M17.12 Unilateral primary osteoarthritis, left knee (principal); Z23 Encounter for immunization; I10 Essential (primary) hypertension; F17.220 Nicotine dependence, chewing tobacco, uncomplicated
CPT/HCPCS: 36415; 80048; 84443; 85027; 87081; 88305; 88311; 93005; 94762; 97110; 97162; 97166; 97530; 97802; C1776; J7120; 90686; J2405

== ENCOUNTER → 2018-03-22 09:42 | Outpatient (CLI) | payer MEDICARE, SELFPAY ==
--- NOTE | 2018-03-22 09:47 | CDU_ITS ---
Reason For Study: Stenosis Rt. Velocities/BP Lt. Velocities/BP Prox CCA 78/18 cm/sec. Prox CCA 126/13 cm/sec. Mid CCA 86/18 cm/sec. Mid CCA 109/19 cm/sec. Dist CCA 73/17 cm/sec. Dist CCA 112/18 cm/sec. Prox ICA 80/26 cm/sec. Prox ICA 47/6 cm/sec. Mid ICA 65/17 cm/sec. Mid ICA 51/8 cm/sec. Dist ICA 121/42 cm/sec. Dist ICA 64/11 cm/sec. Rt. ICA/CCA = 1.41. Lt. ICA/CCA = 0.59. Prox ECA 95/17 cm/sec. Prox ECA 92/15 cm/sec. Rt. Vert. 66/21 cm/sec. Lt. Vert. 41/14 cm/sec. Right Extracranial There is heterogeneous, irregular atherosclerotic plaque noted in the right common carotid artery. There is heterogeneous, irregular atherosclerotic plaque noted in the right internal carotid artery. There is heterogeneous, irregular atherosclerotic plaque noted in the right external carotid artery. Antegrade flow is noted in the right vertebral artery. Left Extracranial There is homogeneous, smooth atherosclerotic plaque noted in the left common carotid artery. There is heterogeneous, irregular atherosclerotic plaque noted in the left internal carotid artery. Lt ICA is very small in caliber. There is heterogeneous, irregular atherosclerotic plaque noted in the left external carotid artery. Antegrade flow is noted in the left vertebral artery. Procedure Carotid Duplex [id number]. Exam performed in department. Interpretation Summary Mild (<50%) stenosis right extracranial internal carotid. Mild (<50%) stenosis left extracranial internal carotid. Flow within the vertebral arteries is antegrade bilaterally. Ordering Physician: BRIAN BARTLETT Referring Physician: BRIAN BARTLETT Performed By: Yuridia Smalls, ARIANNA, RVT
== END ==
PROVIDERS: Family Provider Internal Medicine; PCP Internal Medicine; Referring Provider Surgery Vascular Surgery; Visit Provider Surgery Vascular Surgery
DX: I65.23 Occlusion and stenosis of bilateral carotid arteries (principal)
CPT/HCPCS: 93880

== ENCOUNTER → 2018-04-06 10:23 | Outpatient (CLI) | payer MEDICARE, SELFPAY ==
--- NOTE | 2018-04-06 10:26 | VDLE_ITS ---
Reason For Study: LLE Swelling RIGHT LEFT CFV is compressible, spontaneous, phasic, GSV is normal. competent and demonstrates normal CFV is compressible, spontaneous, phasic, augmentation. competent, and demonstrates normal Procedure augmentation. Exam performed in department. FV is compressible, spontaneous, phasic, A preliminary report was called and/or faxed competent and demonstrates normal to Zaki. augmentation. POP V is compressible, spontaneous, phasic, competent and demonstrates normal augmentation. T/P Trunk is compressible. PTV is compressible. LT PerV is compressible. Interpretation Summary Deep veins of the left lower extremity are patent and compressible segmentally. There is no evidence of left lower extremity deep vein thrombosis. Valvular competence appears intact within the proximal deep venous system on the left . The left greater saphenous vein appears patent and compressible segmentally. Ordering Physician: Ximena Haines Referring Physician: Ximena Haines Performed By: Alfredo Davis RVT and Student
== END ==
PROVIDERS: Family Provider Internal Medicine; PCP Internal Medicine; Referring Provider Internal Medicine; Visit Provider Internal Medicine
DX: M79.89 Other specified soft tissue disorders (principal)
CPT/HCPCS: 93971

== ENCOUNTER → 2018-04-14 10:29 | Outpatient (CLI) | payer MEDICARE, SELFPAY | PROVIDERS: Family Provider Internal Medicine; PCP Internal Medicine; Referring Provider Internal Medicine; Visit Provider Internal Medicine | DX: G47.30 Sleep apnea, unspecified (principal); R06.81 Apnea, not elsewhere classified | CPT/HCPCS: 95806 ==

== ENCOUNTER → 2018-04-19 13:34 | Outpatient (CLI) | payer MEDICARE, SELFPAY ==
[2018-02-08 12:41] VITALS: BMI 30.9
--- NOTE | 2018-04-19 13:45 | ECHOD_ITS ---
Reason For Study: Murmur Procedure This was a 2D Doppler, Color Flow transthoracic echocardiogram. Exam performed in department. Left Ventricle Normal LV size. Left ventricular systolic function is normal. The estimated ejection fraction is 60 %. Stage 1 diastolic dysfunction. No regional wall motion abnormalities noted. Right Ventricle Normal RV size. Normal systolic function. Atria Normal left atrium. Normal right atrium. Hypermobile atrial septum. Mitral Valve Normal mitral valve. Mild (1+) eccentric mitral valve insufficiency. Tricuspid Valve Normal tricuspid valve. Aortic Valve Trisinus/trileaflet aortic valve. Moderate focal aortic valve calcification. Mean aortic valve gradient 20 mmHg. Peak aortic valve gradient 36 mmHg. Mild aortic stenosis. Pulmonic Valve Normal pulmonic valve. Great Vessels Calcified aortic root. The pulmonary artery is normal size. Normal inferior vena cava. Pericardium/Pleural No pericardial effusion. MMode/2D Measurements & Calculations LVIDd: 3.6 cm IVSd: 1.4 cm LVOT diam: 2.3 cm LVIDs: 2.3 cm LVPWd: 1.3 cm LVOT area: 4.1 cm2 RVDd: 4.6 cm FS: 37.0 % Ao root diam: 3.2 cm LAV(MOD-bp): 62.1 ml LVAd ap4: 31.1 cm2 LAV(MOD-bp) Indexed: 32.5 ml/m2 EDV(MOD-sp4): 92.8 ml LAV(MOD-sp2): 65.5 ml EDV(sp4-el): 97.4 ml LAV(MOD-sp4): 56.0 ml LVAs ap4: 16.2 cm2 ESV(MOD-sp4): 31.2 ml ESV(sp4-el): 30.9 ml EF(MOD-sp4): 66.4 % EF(sp4-el): 68.3 % SV(MOD-sp4): 61.6 ml SV(sp4-el): 66.5 ml LA A4 area: 20.2 cm2 LA dimension(2D): 4.3 cm RA A4 area: 22.1 cm2 Doppler Measurements & Calculations MV E max marc: 74.1 cm/sec Lat Peak E' Marc: 7.0 cm/sec Med Peak E' Marc: 4.6 cm/sec MV A max marc: 87.6 cm/sec E/E' lat: 10.6 E/E' med: 16.2 MV E/A: 0.85 Ao V2 max: 299.8 cm/sec LV V1 max: 101.3 cm/sec SV(LVOT): 106.5 ml Ao max P.0 mmHg LV V1 max P.1 mmHg Ao V2 mean: 214.3 cm/sec LV V1 mean P.3 mmHg Ao mean P.1 mmHg LV V1 mean: 73.4 cm/sec Ao V2 VTI: 78.1 cm LV V1 VTI: 25.8 cm ROCIO(I,D): 1.4 cm2 ROCIO(V,D): 1.4 cm2 PA V2 max: 90.6 cm/sec PI end-d marc: 119.7 cm/sec TR max marc: 284.6 cm/sec TR max P.4 mmHg Interpretation Summary Hypermobile atrial septum. Normal LV size. Left ventricular systolic function is normal. The estimated ejection fraction is 60 %. Stage 1 diastolic dysfunction. Mean aortic valve gradient 20 mmHg. Mild aortic stenosis. Moderate focal aortic valve calcification. Compared to prior study, there is no significant change. Ordering Physician: Ximena Haines Referring Physician: Ximena Haines Performed By: Yuridia Smalls, ARIANNA, RVT
--- NOTE | 2018-04-19 14:28 | CT_ITS ---
STUDY: CT CHEST WITHOUT CONTRAST REASON FOR EXAM: Male, 82 years old. Hyperlipidemia. Calcium scoring examination. Radiology over read. RADIATION DOSAGE (If Supplied By Facility): CTDIvol = ( 12.49 ) mGy, DLP = ( 243.79 ) mGycm TECHNIQUE: Transaxial imaging was performed without the administration of intravenous contrast material. Individualized dose optimization techniques were used for this CT. COMPARISON: None. FINDINGS: Mild increased markings in the posterior medial segment of the right lower lobe suggestive of scarring. There is no demonstrated pleural abnormality. There are calcifications of the coronary arteries. There are multiple small lymph nodes within the mediastinum, which are normal in size and morphology most compatible with reactive lymph hyperplasia. Normal hilar regions. Normal unenhanced pulmonary arteries. There is atherosclerotic calcification of the aortic arch. There are degenerative changes of the thoracic spine. There is no demonstrated abnormality of the visualized upper abdomen. CT/Limited Chest CT w/CCTA IMPRESSION: Coronary artery calcification. Mild scarring in the posterior medial segment of the right lower lobe. Electronically Signed: Fox Medeiros MD at 15:41 EST , Service support ,
[2018-04-19 14:37] VITALS: BP 135/54; PULSE 66; RESP 16; O2SAT 97; BMI 29.0
--- NOTE | 2018-04-20 14:31 | CA.SCORE ---
Calcium Scoring Date of Study:: 04/20/18 Coronary Calcium Scoring: Coronary calcium scoring. High-resolution computed tomographic imaging of the chest was performed on 04/19/2018 with particular attention paid to the coronary arteries. Images from the examination were analyzed for the presence and extent of coronary artery calcification using the coronary calcification software. The patient tolerated the procedure well there were no complications. The results of the coronary consultation analysis are provided below. Coronary artery score. Left main score 492. Left anterior descending artery score 1014. Left circumflex artery 50 Right coronary artery score 771. Total Agatston score 2327. The above places the patient at above greater than 90 percentile ranking for age-matched controls. The above is suggestive of extensive atherosclerotic plaque burden with a high likelihood of at least one coronary artery with more than 50% diameter stenosis.
== END ==
PROVIDERS: Family Provider Internal Medicine; PCP Internal Medicine; Referring Provider Internal Medicine; Visit Provider Internal Medicine
DX: R01.1 Cardiac murmur, unspecified (principal); E78.5 Hyperlipidemia, unspecified
CPT/HCPCS: 75571; 76380; 93306

== ENCOUNTER → 2018-05-05 14:23 | Outpatient (CLI) | payer MEDICARE, SELFPAY ==
[2018-05-05 12:43] VITALS: BMI 29.9
[2018-05-05 14:55] LABS: Absolute Lymphocyte Count 1.39 X10^3/ul (0.83-4.51); Absolute Neutrophil Count 2.7 X10^3/uL (2.0-7.7); Basophil# 0.03 X10^3/uL; Basophil% 0.6 % (0-1); Eosinophil# 0.23 X10^3/uL; Eosinophils% 4.6 % (0-5); Hematocrit 33.7 % (40-54); Hemoglobin 10.7 g/dl (13.0-16.5); Lymphocyte # 1.39 X10^3/ul (4.0); Lymphocyte % 27.9 % (19-41); Mean Corp Hgb Conc 31.8 g/gl (32-36); Mean Corpuscular Hgb 27.9 pg (27.0-32.0); Mean Corpuscular Volume 87.8 fL (80-94); Mean Platelet Vol. 10.9 fl (6.2-12.0); Monocyte# 0.65 X10^3/uL; Monocyte% 13.1 % (0-10); Neutrophil # 2.68 X10^3/uL (2.7-7.7); Neutrophil % 53.8 % (47-70); POSITIVE COUNT NO; POSITIVE DIFFERENTIAL NO; POSITIVE MORPHOLOGY NO; Platelet Count 186 K/mm3 (150-450); RBC Distribution Width CV 14.2 % (11.6-14.6); RBC Distribution Width SD 45.8 fl (35.1-43.9); Red Blood Count 3.84 M/mm3 (4.6-6.2)
[2018-05-05 15:14] LABS: Anion Gap 6 (5-15); BUN 19 mg/dL (7-18); BUN/Creat Ratio 18.6 RATIO (10-20); Calcium,Total 8.7 mg/dL (8.5-10.1); Chloride 104 mmol/L (98-107); Creatinine, Serum 1.02 mg/dL (0.70-1.30); EST Glomerular Filtration Rate 74 mL/min (>60); Est Glom Filt Rate - Afr Amer 90 mL/min (>60); Glucose 66 mg/dL (74-106); Potassium 4.3 mmol/L (3.5-5.1); Sodium Level 138 mmol/L (136-145)
== END ==
LOC: LAB 14:26 → AC 05-06 06:06 → LAB 02-23 05:29
PROVIDERS: Family Provider Internal Medicine; PCP Internal Medicine; Referring Provider Internal Medicine Cardiovascular Disease; Visit Provider Internal Medicine Cardiovascular Disease
DX: I10 Essential (primary) hypertension (principal); R93.1 Abnormal findings on diagnostic imaging of heart and coronary circulation; I61.9 Nontraumatic intracerebral hemorrhage, unspecified
CPT/HCPCS: 36415; 80048; 85025

== ENCOUNTER → 2018-05-19 06:04 | Outpatient (CLI) | payer MEDICARE, SELFPAY ==
[2018-05-07 09:27] VITALS: BMI 29.9
--- NOTE | 2018-05-19 18:09 | STRESSREP ---
Stress Test Report Exercise myocardial perfusion stress test. 83-year-old man with a history of an abnormal calcium score. Medications: Proscar, Neurontin, Synthroid, Pravachol, Toprol, nifedipine, Plavix. Stress protocol: Resting EKG demonstrates normal sinus rhythm with a rate of 60 bpm first-degree AV block is noted. Resting blood pressure 150/92 mmHg. The patient exercised according to regular Juan protocol for total duration of 5 minutes. Patient completed stage I of the Juan protocol. The maximum heart rate was 107 bpm which was 78% of maximum predicted heart rate the maximum workload was 4.6 metabolic equivalents. At rest there were no ST or T wave changes noted suggest ischemia peak exercise upsloping ST changes only were noted with normally the criteria for ischemia. No obvious clinical angina was noted. The resting blood pressure 150/92 with a peak blood pressure 182/98 mmHg. Myocardial perfusion protocol. 11.7 mCi of Metal Model Builder 90 9M sestamibi was injected at rest. The patient exercised according to regular Juan protocol for 5 minutes and at peak exercise 33.5 mCi of technetium 99m sestamibi was injected stress images were obtained stress and rest images were reconstructed and compared in the short axis vertical long horizontal long axis. Gated images were also obtained per Perfusion SPECT analysis. Review of the stress images demonstrate normal cardiac silhouette size. The distal anterior wall to apex demonstrate mildly reduced perfusion which appears to improve with rest. The above is suggestive of minimal to mild distal anterior ischemia at a low workload. No obvious infarct is noted. Gated SPECT analysis: The gated ejection fraction is noted to be 74%. Conclusion: Exercise myocardial perfusion stress test with probable mild distal anterior ischemia noted The low workload attained may affect sensitivity for detection of ischemia. Workload was 4.6 metabolic equivalents Preserved ejection fraction
== END ==
PROVIDERS: Family Provider Internal Medicine; PCP Internal Medicine; Referring Provider Internal Medicine Cardiovascular Disease; Visit Provider Internal Medicine Cardiovascular Disease
DX: R93.1 Abnormal findings on diagnostic imaging of heart and coronary circulation (principal); I35.0 Nonrheumatic aortic (valve) stenosis; I61.9 Nontraumatic intracerebral hemorrhage, unspecified; E78.5 Hyperlipidemia, unspecified; I10 Essential (primary) hypertension
CPT/HCPCS: 78452; 93017; A9500; A4216

== ENCOUNTER → 2018-05-24 21:44 | Outpatient (CLI) | payer MEDICARE, SELFPAY ==
[2018-04-19 14:37] VITALS: BMI 29.0
[2018-05-07 09:27] VITALS: BMI 29.9
== END ==
PROVIDERS: Family Provider Internal Medicine; PCP Internal Medicine; Referring Provider Internal Medicine; Visit Provider Internal Medicine
DX: G47.33 Obstructive sleep apnea (adult) (pediatric) (principal)
CPT/HCPCS: 95811

== ENCOUNTER 2018-05-31 09:43 | Day surgery (SDC) | payer MEDICARE, SELFPAY ==
[2018-05-05 12:43] VITALS: BMI 29.9
[2018-05-07 09:27] VITALS: BMI 29.9
[2018-05-31] VITALS (21 sets, daily range): BP systolic 108–185; BP diastolic 58–78; PULSE 63–88; RESP 12–17; TEMP 36.8; O2SAT 95–98; BMI 29.4
--- NOTE | 2018-05-31 11:29 | CL.D_ITS ---
Patient Name: DELROY TIPTON Study Date: 05/31/2018 Performing: João Victoria MD Ht: 66.14 inches 168 cm : 1935 Wt: 185.19 lbs 84 kg Age: 83 Gender: male BSA: 1.94 PROCEDURE(S) PERFORMED [id number]/COR/LV CLINICAL PROFILE AND INDICATIONS Indications: Suspected CAD Heart Failure: None Stress/Imaging Date: 05/22/2018Stress Test with SPECT MPI: Indeterminant CAD Presentations: Stable angina. CONCLUSIONS Calicified coronary stenosis with high grade LAD mid segment RECOMMENDATIONS Referred for immediate PCI DESCRIPTION OF PROCEDURE The patient arrived to the procedure lab. The risks and benefits of the procedure as well as a full d escription of our services here and current unavailability of surgical backup were fully explained to the patient and/or their significant other prior to the catheterization. The Timeout was completed, verifying the correct patient and procedure. The patient's procedural site was prepped and draped in the usual fashion. Local anesthetic was given subcutaneously to right groin region with Lidocaine 2%. Using a modified Seldinger technique, arterial access was obtained via the right radial artery, a 6F r sheath was inserted. Left Coronary Artery selective angiography was performed in multiple views us ing a 5 Fr. 4.0 Congers catheter. Right Coronary Artery selective angiography was then performed in mul tiple views using a 5 Fr. 4.0 Congers catheter. Left Ventriculography was performed in CALHOUN projection u sing a 5 Fr. Pigtail catheter. LV to AO pullback pressures were then recorded.The arterial sheath was pulled and a TR Band was applied for hemostasis, 12cc of air CORONARY ANGIOGRAPHY DOMINANCE: Right Dominant LEFT HEART ASSESSMENT Left Ventricular Ejection Fraction: by LV Gram 60 % Normal LV wall motion Normal Left Ventricular systolic function LEFT MAIN: Mild calcification LEFT ANTERIOR DECENDING ARTERY: PROX LAD: Moderate calcification MID LAD: Moderate calcification, 90 % Stenosis CIRCUMFLEX ARTERY: Mild luminal irregularities less than 30% RIGHT CORONARY ARTERY: MID RCA: Mild calcification, Mild luminal irregularities less than 30% COMPLICATIONS No Complications PROCEDURE MEDICATIONS Versed 1 mg IV Fentanyl 50 mcg IV Oxygen: 2 L/min via nasal cannula Heparin diluted in 23cc Heparinized saline. Patient given 10cc IA of this solution. 05/31/2018 11:00: 47 Verapamil 2.5mg, Ntg 100mcgs, 2000 units of Heparin diluted in 23cc Heparinized saline. Patient give n 10cc IA of this solution. 05/31/2018 11:00:47 SUMMARY OF HEMODYNAMIC DATA Time AIR REST ECG 10:14:23 ECG 10:39:47 AO 97/49 (69) SA 11:03:13 LV 144/1, 9 11:09:37 LV 146/1, 9 11:09:44 LV 137/4, 15 11:10:49 LVp 130/8, 15 11:10:53 AOp 134/61 (90) 11:10:58 Signed By João Victoria MD On 05/31/2018 11:28:56 AM João Victoria MD
[2018-05-31] MEDS: Ramipril 10 MG Capsule 20 MG PO (12:00)
--- NOTE | 2018-05-31 15:15 | EKG12_ITS ---
Test Reason : POST PCI Blood Pressure : / mmHG Vent. Rate : 068 BPM Atrial Rate : 068 BPM P-R Int : 284 ms QRS Dur : 090 ms QT Int : 416 ms P-R-T Axes : 086 019 037 degrees QTc Int : 442 ms Sinus rhythm with 1st degree A-V block Otherwise normal ECG No previous ECGs available Confirmed by MARTY DUNN, JOÃO ([id number]), manuscript editor RODOLFO CRANE ([id number]) on 06/14/2018 1:40:48 PM Referred By: João Victoria Confirmed By:JOÃO VICTORIA MD
--- NOTE | 2018-05-31 15:28 | CL.I_ITS ---
Patient Name: DELROY TIPTON Study Date: 05/31/2018 Performing: Sarath Moss MD Ht: 66.14 inches 168 cm : 1935 Wt: 185.19 lbs 84 kg Age: 83 Gender: male BSA: 1.94 PROCEDURE(S) PERFORMED [id number] W OR WO PTCA, SINGLE CORONARY ARTERY CLINICAL PROFILE AND CO-MORBIDITIES Indications: Suspected CAD Heart Failure: None Stress/Imaging Date: 05/22/2018 Stress Test with SPECT MPI: Indeterminant CAD Presentations: Stable angina. CONCLUSIONS Successful PTCA/BILL Recoiled stent in mid LAD lesion, no dissection, preserved JULIO CESAR III flow. RECOMMENDATIONS Medical therapy at this time. Reattementing the stent dilation per clinical indications. DESCRIPTION OF PROCEDURE The patient arrived to the procedure lab. The risks and benefits of the procedure as well as a full d escription of our services here and current unavailability of surgical backup were fully explained to the patient and/or their significant other prior to the catheterization. The Timeout was completed, verifying the correct patient and procedure. The patient's procedural site was prepped and draped in the usual fashion. Local anesthetic was given subcutaneously to right groin region with Lidocaine 2%. Local anesthetic was given subcutaneously to right groin region with Lidocaine 2% Using a modified S eldinger technique,arterial access was obtained via the right radial artery, a 6Fr sheath was inserte d., arterial access was obtained via the right femoral artery, a 6Fr sheath was inserted. Left Rasmussen ry Artery selective angiography was performed in multiple views using a 5 Fr. 4.0 [place] catheter. Rig ht Coronary Artery selective angiography was then performed in multiple views using a 5 Fr. 4.0 [place] catheter. Left Ventriculography was performed in CALHOUN projection using a 5 Fr. Pigtail c atheter. LV to AO pullback pressures were then recorded.The images were reviewed and options discusse d. A decision was then made to proceed with an Intervention, IVUS or other adjunct procedure. JL 4.0 Guide catheter was inserted and engaged into the LCA. BMW Guide wire was advanced to the L AD. 2.5 X 15 EMERGE Balloon catheter was inserted. Balloon catheter was advanced across lesion in the LAD, mid. PTCA balloon inflated at 16 atms for 45 secs. PTCA balloon inflated at 18 atms for 23 secs . Angiogram performed post balloon dilatation. 2.75 X 20 SYNERGY Drug Eluting stent was inserted. Reggie g Eluting stent was advanced across the lesion in the LAD, mid. 3.0 X 8 NC EMERGE Balloon catheter wa s inserted. Balloon catheter was inserted post stent. Angiogram performed pre balloon dilatation. BMW (2) Guide wire was inserted as a orlando wire WHISPER MS Guide wire was inserted as a orlando wire 1.5 X 15 EMERGE Balloon catheter was inserted. BMW (3) Guide wire was advanced to the LAD. 1.5 X 15 EMERGE Balloon catheter was inserted. 6F GUIDELINER Guide catheter was inserted and engaged into the LCA. 2 .0 X 12 NC EMERGE Balloon catheter was inserted. 1.5 X 8 EMERGE Balloon catheter was inserted. 1.2 X 8 EMERGE Balloon catheter was inserted. Angiogram performed post stent deployment. Co ntrast was injected through the sheath and the Right Iliac and Femoral artery were assessed for possi ble closure device. The arterial sheath was pulled and a TR Band was applied for hemostasis, 12cc of air. The arterial sheath was pulled and a Mynx closure device was deployed for hemostasis INTERVENTION INFORMATION LESION SITE: LAD (Mid) Lesion Complexity: Non-High/Non-C, chronic total occlusion: No, lesion at bifurcation: No, thrombus p resent: No, lesion length: 8 mm, culprit lesion: Yes, In-stent restenosis: No Pre Stenosis: 80 % Pre intervention JULIO CESAR flow: 3 PROCEDURE: Drug Eluting Stent with pre dilatation. nondilateable lesion despite high presseure imnflations pre ansd ewith the stent balloon. The lesion recoiled and could not be crossed despite multiple wireing and rewiering, orlando wire, Guidliner use. Post Stenosis: 70 % Post intervention JULIO CESAR flow: 3 Lesion Devices: Gil Sci EMERGE MR 2.50x15 BALLOON Christensen .014 BMW [place] Straight 190cm Medtronic 6 Fr JL4.0 100cm Guide Catheter Gil Sci Synergy MR BILL 2.75x20 Gil Sci NC EMERGE MR 3.00x08 BALLOON Gil Sci NC EMERGE MR 2.00x12 BALLOON Christensen .014 BMW [place] Straight 190cm Christensen .014 HT Whisper MS Straight 190cm Gil Sci EMERGE MR 1.50x15 BALLOON Christensen .014 BMW [place] Straight 190cm Vascular Solutions 6 Malay GuideLiner Gil Sci EMERGE MR 1.50x08 BALLOON Gil Sci EMERGE MR 1.20x08 BALLOON COMPLICATIONS No Complications PROCEDURE MEDICATIONS Versed 1 mg IV Fentanyl 50 mcg IV Oxygen: 2 L/min via nasal cannula Angiomax 12.8 ml's 05/31/2018 14:02:03 Angiomax 5mg / ml IV started @ 29.8 ml/hr @ 05/31/2018 14:02:25 Heparin diluted in 23cc Heparinized saline. Patient given 10cc IA of this solution. 05/31/2018 11:00: 47 Nitro Tab 0.4 mg PO 05/31/2018 15:05:22 Verapamil 2.5mg, Ntg 100mcgs, 2000 units of Heparin diluted in 23cc Heparinized saline. Patient give n 10cc IA of this solution. 05/31/2018 11:00:47 IV Fluids: .9 NaCl increased to WO ml/hr 05/31/2018 13:56:10 SUMMARY OF HEMODYNAMIC DATA Time AIR REST ECG 10:14:23 ECG 10:39:47 AO 97/49 (69) SA 11:03:13 LV 144/1, 9 11:09:37 LV 146/1, 9 11:09:44 LV 137/4, 15 11:10:49 LVp 130/8, 15 11:10:53 AOp 134/61 (90) 11:10:58 AO 188/63 (116) 14:00:31 Signed By Sarath Moss MD On 05/31/2018 15:27:43 Sarath Moss MD
[2018-05-31 15:51] LABS: ACT Activated Clotting Time 356 sec (74-137)
[2018-05-31] MEDS: Nitroglycerin Infusion 250 ML 3 MG CONT INF ×2 (17:41→19:48)
[2018-05-31] MEDS: Gabapentin 300 MG Capsule PO (18:43)
[2018-05-31] MEDS: 0.9% Normal Saline 1,000 ML 150 ML IV (19:48)
[2018-05-31] MEDS: Montelukast 10 MG Tablet PO (20:49)
[2018-05-31] MEDS: Tamsulosin HCl 0.4 MG Capsule PO (20:49)
[2018-05-31] MEDS: TICAGRELOR 90 MG TABLET PO (20:49)
--- NOTE | 2018-05-31 21:03 | NURSING ---
Sha care here to order picker/assembler pt and transport to [facility] at this time, pt is stable and cooperative.
--- NOTE | 2018-06-01 09:58 | CRPHASE1 ---
Patient Communication PHII Cardiac Rehab Discussed with Patient:: Yes Guide to Cardiac Rehab Given to Patient:: No - Patient transfered from medical lab specialist to higher level of care. Cardiac Rehab Facility Choice List Given to Patient:: No - Patient transfered from medical lab specialist to higher level of care. Medical Laboratory Assistant:: João Victoria Refer Phase II Cardiac Rehab:: Yes - Upon geotechnical operating engineer visit post-discharge Patient Contacted Post Discharge by CR Staff:: No - Patient sent to higher level of care for treatment of coronary occlusion. Phase I Charge:: Level I - Education - Patient was not seen by CR at [facility] due to transfer from the medical lab specialist to a higher level of care. We will contact the patient following his discharge from the other facility. Risk Factors/Lifestyle Family History: Family History (Last Reviewed 05/05/18 @ 13:41 by João Victoria MD) Brother Myocardial infarction, Onset Age: 60 Brother Myocardial infarction, Onset Age: 65 Father Myocardial infarction, Onset Age: 60 Cardiac Rehabilitation Info Cardiac Rehabilitation Program Information: Cardiac Rehabilitation is important for patients like you who are recovering from a heart problem. Cardiac rehabilitation programs are recognized as integral to the continued care of the patient with coronary heart disease. The cardiac rehabilitation program is designed to optimize a patient's physical, psychological, and social functioning. Health career development specialist work in cardiac rehabilitation programs and assist you with getting the treatments you need to get stronger and healthier - like exercise, healthy eating habits, and medications. Cardiac rehabilitation has been show to help people with heart problems live longer and have better life enjoyment than people who do not go to cardiac rehabilitation. Please contact the Cardiac Rehabilitation Program at [facility] at in two weeks if you have not heard from them.
--- NOTE | 2018-06-01 10:03 | CRPHASE1_ITS ---
Patient Communication PHII Cardiac Rehab Discussed with Patient:: Yes Guide to Cardiac Rehab Given to Patient:: No - Patient transfered from laboratory technician to higher level of care. Cardiac Rehab Facility Choice List Given to Patient:: No - Patient transfered from laboratory technician to higher level of care. Licensed Journeyman Electrician:: João Victoria Refer Phase II Cardiac Rehab:: Yes - Upon clinical researcher visit post-discharge Patient Contacted Post Discharge by CR Staff:: No - Patient sent to higher level of care for treatment of coronary occlusion. Phase I Charge:: Level I - Education - Patient was not seen by CR at [facility] due to transfer from the laboratory technician to a higher level of care. We will contact the patient following his discharge from the other facility. Risk Factors/Lifestyle Family History: Family History (Last Reviewed 05/05/18 @ 13:41 by João Victoria MD) Brother Myocardial infarction, Onset Age: 60 Brother Myocardial infarction, Onset Age: 65 Father Myocardial infarction, Onset Age: 60 Cardiac Rehabilitation Info Cardiac Rehabilitation Program Information: Cardiac Rehabilitation is important for patients like you who are recovering from a heart problem. Cardiac rehabilitation programs are recognized as integral to the continued care of the patient with coronary heart disease. The cardiac rehabilitation program is designed to optimize a patient's physical, psychological, and social functioning. Health healthcare management work in cardiac rehabilitation programs and assist you with getting the treatments you need to get stronger and healthier - like exercise, healthy eating habits, and medications. Cardiac rehabilitation has been show to help people with heart problems live longer and have better life enjoyment than people who do not go to cardiac rehabilitation. Please contact the Cardiac Rehabilitation Program at [facility] at in two weeks if you have not heard from them.
== END 2018-05-31 21:07 | disposition short-term general hospital (02) ==
LOC: CLSP 09:43 → ICU 13:25
PROVIDERS: Family Provider Internal Medicine; PCP Internal Medicine; Referring Provider Internal Medicine Cardiovascular Disease; Visit Provider Internal Medicine Cardiovascular Disease
DX: I20.9 Angina pectoris, unspecified (principal); R93.1 Abnormal findings on diagnostic imaging of heart and coronary circulation; I10 Essential (primary) hypertension; E78.5 Hyperlipidemia, unspecified; D64.9 Anemia, unspecified; N40.0 Benign prostatic hyperplasia without lower urinary tract symptoms; E03.9 Hypothyroidism, unspecified; M06.4 Inflammatory polyarthropathy; E66.9 Obesity, unspecified; G47.33 Obstructive sleep apnea (adult) (pediatric); F17.290 Nicotine dependence, other tobacco product, uncomplicated; Z79.899 Other long term (current) drug therapy; Z79.82 Long term (current) use of aspirin; Z86.73 Personal history of transient ischemic attack (TIA), and cerebral infarction without residual deficits
CPT/HCPCS: 85347; 92928; 93005; 93458; 99152; 99153; C1760; J7030; J7040; C1725; C1769; C1874; C1887; C1894; C9600; J0583; Q9967

== ENCOUNTER 2018-06-05 21:37 | Emergency (ER) | payer MEDICARE, SELFPAY ==
[2018-05-31 16:34] VITALS: BMI 29.4
[2018-06-05 21:39] VITALS: BP 125/63; PULSE 97; RESP 20; TEMP 38.6; O2SAT 94; BMI 31.0
[2018-06-05 22:41] VITALS: BP 106/61; PULSE 85; RESP 20; TEMP 37.2; O2SAT 95
[2018-06-05 22:47] LABS: Absolute Lymphocyte Count 0.36 X10^3/ul (0.83-4.51); Absolute Neutrophil Count 5.1 X10^3/uL (2.0-7.7); Basophil# 0.02 X10^3/uL; Basophil% 0.4 % (0-1); Eosinophil# 0.02 X10^3/uL; Eosinophils% 0.4 % (0-5); Hematocrit 28.1 % (40-54); Hemoglobin 9.4 g/dl (13.0-16.5); Lymphocyte # 0.36 X10^3/ul (4.0); Lymphocyte % 6.3 % (19-41); Mean Corp Hgb Conc 33.5 g/gl (32-36); Mean Corpuscular Hgb 28.1 pg (27.0-32.0); Mean Corpuscular Volume 83.9 fL (80-94); Mean Platelet Vol. 10.7 fl (6.2-12.0); Monocyte% 3.5 % (0-10); Neutrophil # 5.08 X10^3/uL (2.7-7.7); Neutrophil % 89.2 % (47-70); Platelet Count 177 K/mm3 (150-450); RBC Distribution Width CV 14.6 % (11.6-14.6); RBC Distribution Width SD 45.2 fl (35.1-43.9); Red Blood Count 3.35 M/mm3 (4.6-6.2); White Blood Count 5.7 K/mm3 (4.4-11.0)
[2018-06-05 22:48] LABS: Differential Indicated SCAN CRITERIA MET; POSITIVE COUNT NO; POSITIVE DIFFERENTIAL YES; POSITIVE MORPHOLOGY NO
--- NOTE | 2018-06-05 22:50 | RAD_ITS ---
STUDY: X-RAY CHEST REASON FOR EXAM: Male, 83 years old. Weakness and fever. TECHNIQUE: PA and lateral views of the chest. COMPARISON: 27 December 2016. FINDINGS: The lungs are clear and expanded. There is no demonstrated pleural abnormality. Normal size heart. Normal mediastinum and alberto. Normal visualized pulmonary arteries. Normal visualized aortic arch and descending thoracic aorta. There is demineralization of the osseous structures. Normal visualized ribs, clavicles, and shoulders. There is no demonstrated abnormality of the visualized soft tissue structures of the upper abdomen. RAD/Chest PA and Lateral IMPRESSION: Similar exam with no evidence of acute process. Electronically Signed: Helio Long DO at 23:46 EDT , Service support ,
[2018-06-05 22:57] LABS: ALB/GLOB Ratio 1.1 RATIO (0.9-2.4); AST(SGOT) 19 U/L (15-37); Alanine Aminotransfer ALT/SGPT 17 U/L (16-61); Albumin, Serum 3.3 g/dL (3.2-5.0); Alkaline Phosphatase 59 U/L (45-117); Anion Gap 8 (5-15); BUN 20 mg/dL (7-18); BUN/Creat Ratio 16.7 RATIO (10-20); Chloride 105 mmol/L (98-107); EST Glomerular Filtration Rate 61 mL/min (>60); Est Glom Filt Rate - Afr Amer 74 mL/min (>60); Estimated Creatinine Clearance 42.09 ml/min; Globulin 3.1 g/dL (2.2-4.2); Glucose 113 mg/dL (74-106); Potassium 3.7 mmol/L (3.5-5.1); Protein, Total 6.4 g/dL (6.4-8.2); Sodium Level 135 mmol/L (136-145)
[2018-06-05 23:03] LABS: Lactic Acid 2.1 mmol/L (0.4-2.0)
--- NOTE | 2018-06-05 23:03 | ED.RN ---
lab called with critical lab results. lactic acid 2.1. Dr. Esquivel made aware no new orders at this time
[2018-06-05 23:05] LABS: Bacteria 0 SEEN /hpf (None Seen); Mucous, Urine 0 SEEN /hpf (<or=2+); Red Blood Cells-Urine 0 SEEN /hpf (0-5); White Blood Cells 0 SEEN /hpf (0-5)
[2018-06-05 23:07] LABS: Color, Urine Yellow (Yellow); Glucose, Dipstick Normal (Normal); Ketone-Dipstick Negative (Negative); Leukocyte Esterase-Dipstick Negative /ul (Negative); Nitrite-Dipstick Negative (Negative); Occult Blood-Urine Negative /ul (Negative); Protein-Dipstick 15 mg/dl (Negative); Urine Bilirubin Dipstick Negative (Negative); Urine Clarity Sl. Cloudy (Clear); Urine Urobilinogen Normal (Normal)
[2018-06-05 23:10] LABS: Differential Comment SCANNED; Ovalocyte RARE; Platelet Estimate ADEQUATE (ADEQ)
[2018-06-05 23:15] LABS: Squamous Epithelial Cells - UA 0-5 SEEN /hpf (0-5)
[2018-06-05 23:49] VITALS: BP 98/60; PULSE 80; RESP 19; TEMP 37.1; O2SAT 94
--- NOTE | 2018-06-06 00:04 | ED.VISSUMM ---
- ER Visit Summary Date of Service: 06/06/18 Chief Complaint: Fever History of Present Illness: The patient is a 83 M who presents with a fever. He had a temperature of 103.6 at home. He complains of chills. Review of systems is otherwise negative. He denies congestion rhinorrhea sore throat cough shortness of breath chest pain abdominal pain nausea vomiting diarrhea or rashes. He was recently hospitalized for cardiac catheterization and stent. He has carotid disease so had underwent imaging of his coronary arteries. He had a high calcium score. He underwent cardiac catheterization and stent was attempted here but unable to be stented so he was transferred to [facility] where he had a stent placed. He was hospitalized for 2 nights. He states that his access sites for the cardiac catheterization have not been red or draining or painful. He denies any leg pain or edema. His initial attempt at catheterization was through the right radial artery which was unsuccessful and then he underwent catheterization to the right femoral artery. At [facility] he was accessed at the left femoral artery. Physical Examination: Temperature 101.5 heart rate 97 blood pressure 125/63 pulse ox 94% Moist mucous membranes Heart regular rate and rhythm, 3 out of 6 murmur Lungs are clear no rales rhonchi wheezes Abdomen soft nontender nondistended Lower extremities no edema no tenderness easily palpable femoral pulses there is ecchymosis at both groins. The right radial artery puncture site is clean and dry no erythema no drainage Test Results: Labs notable for hemoglobin 9.4. Lactic acid 2.1. Urinalysis normal. Blood and urine cultures were sent. Chest x-ray shows no acute process. Emergency Department Course and Treatment: Patient was given Tylenol and IV fluids. On reevaluation he states he feels good. He really has no complaints. Lactic acid is minimally elevated at 2.1 but given normal heart rate lack of leukocytosis no clear infectious source I do not believe this is clinically significant. We discussed hospital observation versus monitoring the symptoms at home with the clear understanding that he really needs to return for any new or worsening symptoms. He would like to go home. We discussed signs and symptoms to monitor for. All questions answered bedside. Patient agreeable to plan was discharged home Treatment Plan: [] Disposition: Discharge Impression: Fever of unknown origin This note was generated with [employer] software. It may contain incorrect words, spelling, and punctuation that were not noted in review of the chart prior to signing ED Disposition - Plan for ED Patient: Referrals: Ximena Haines MD [Primary Care Provider] -
--- NOTE | 2018-06-06 00:08 | ED.DCSUM_ITS ---
- ER Visit Summary Date of Service: 06/06/18 Chief Complaint: Fever History of Present Illness: The patient is a 83 M who presents with a fever. He had a temperature of 103.6 at home. He complains of chills. Review of systems is otherwise negative. He denies congestion rhinorrhea sore throat cough short ness of breath chest pain abdominal pain nausea vomiting diarrhea or rashes. He was recently hospitalized for cardiac catheterization and stent. He has carotid disease so had underwent imaging of his coronary arteries. He had a high calcium score. He underwent cardiac catheterization and stent was attempted here but unable to be stented so he was transferred to [facility] where he had a stent placed. He was hospitalized for 2 nights. He states that his access sites for the cardiac catheterization have not been red or draining or painful. He denies any leg pain or edema. His initial attempt at catheterization was through the right radial artery which was unsuccessful and then he underwent catheterization to the right femoral artery. At [facility] he was accessed at the left femoral artery. Physical Examination: Temperature 101.5 heart rate 97 blood pressure 125/63 pulse ox 94% Moist mucous membranes Heart regular rate and rhythm, 3 out of 6 murmur Lungs are clear no rales rhonchi wheezes Abdomen soft nontender nondistended Lower extremities no edema no tenderness easily palpable femoral pulses there is ecchymosis at both groins. The right radial artery puncture site is clean and dry no erythema no drainage Test Results: Labs notable for hemoglobin 9.4. Lactic acid 2.1. Urinalysis normal. Blood and urine cultures were sent. Chest x-ray shows no acute process. Emergency Department Course and Treatment: Patient was given Tylenol and IV fluids. On reevaluation he states he feels good. He really has no complaints. Lactic acid is minimally elevated at 2.1 but given normal heart rate lack of leukocytosis no clear infectious source I do not believe this is clinically sig nificant. We discussed hospital observation versus monitoring the symptoms at home with the clear understanding that he really needs to return for any new or worsening symptoms. He would like to go home. We discussed signs and symptoms to monitor for. All questions answered bedside. Patient agreeable to plan was discharged home Treatment Plan: [] Disposition: Discharge Impression: Fever of unknown origin This note was generated with [employer] software. It may contain incorrect words, spelling, and punctuation that were not noted in review of the chart prior to signing ED Disposition - Plan for ED Patient: Referrals: Ximena Haines MD [Primary Care Provider] -
--- NOTE | 2018-06-06 00:08 | ED.DEP ---
ED Disposition - Plan for ED Patient: Instructions: ED Fever Unconf Cause Referrals: Ximena Haines MD [Primary Care Provider] -
[2018-06-06 00:18] VITALS: BP 108/53; PULSE 79; RESP 15; O2SAT 94
[2018-06-06 02:39] LABS: Reflex Lactate? Y
--- NOTE | 2018-06-06 19:43 | ED.RN ---
lab called with positive blood culture results. Spoke with Dr. Raknin he would like patient to return to the ER for IV atx and admission. Spoke to patients and she is aware. of the plan.
== END 2018-06-06 00:19 | disposition home or self-care (01) ==
LOC: ED 22:22
PROVIDERS: Emergency Provider Emergency Medicine; Family Provider Internal Medicine; PCP Internal Medicine
DX: R50.9 Fever, unspecified (principal)
CPT/HCPCS: 36415; 71046; 80053; 81001; 83605; 85025; 87040; 87086; 87149; J7030

== ENCOUNTER 2018-06-06 21:32 | Inpatient (IN) | payer MEDICARE, SELFPAY ==
[2018-06-05 21:39] VITALS: BMI 31.0
[2018-06-06 21:33] VITALS: BP 103/61; PULSE 91; RESP 21; TEMP 37.5; O2SAT 94; BMI 30.4
[2018-06-06 21:46] VITALS: BP 103/61; PULSE 91; RESP 21; TEMP 37.5; O2SAT 94
--- NOTE | 2018-06-06 22:02 | EKG12_ITS ---
Test Reason : WEAKNESS Blood Pressure : / mmHG Vent. Rate : 085 BPM Atrial Rate : 085 BPM P-R Int : 270 ms QRS Dur : 092 ms QT Int : 386 ms P-R-T Axes : 065 020 045 degrees QTc Int : 459 ms Sinus rhythm with 1st degree A-V block Otherwise normal ECG Confirmed by MARTY DUNN, DENICE ([id number]), film editor supervisor RODOLFO CRANE ([id number]) on 06/08/2018 1:28:18 PM Referred By: YOLANDA Confirmed By:DENICE FERGUSON MD
[2018-06-06] MEDS: 0.9% Normal Saline 1,000 ML 150 ML IV (22:34)
[2018-06-06 22:37] VITALS: BP 98/60; PULSE 80; RESP 18; TEMP 37.4; O2SAT 96
[2018-06-06 22:39] LABS: Absolute Lymphocyte Count 0.37 X10^3/ul (0.83-4.51); Absolute Neutrophil Count 8.6 X10^3/uL (2.0-7.7); Basophil# 0.02 X10^3/uL; Basophil% 0.2 % (0-1); Differential Indicated SCAN CRITERIA MET; Eosinophil# 0.01 X10^3/uL; Eosinophils% 0.1 % (0-5); Hemoglobin 9.1 g/dl (13.0-16.5); Lymphocyte # 0.37 X10^3/ul (4.0); Lymphocyte % 3.8 % (19-41); Mean Corp Hgb Conc 33.7 g/gl (32-36); Mean Corpuscular Hgb 27.9 pg (27.0-32.0); Mean Corpuscular Volume 82.8 fL (80-94); Mean Platelet Vol. 10.4 fl (6.2-12.0); Monocyte# 0.65 X10^3/uL; Monocyte% 6.7 % (0-10); Neutrophil # 8.59 X10^3/uL (2.7-7.7); Neutrophil % 88.9 % (47-70); POSITIVE COUNT NO; POSITIVE DIFFERENTIAL YES; POSITIVE MORPHOLOGY YES; Platelet Count 158 K/mm3 (150-450); RBC Distribution Width CV 14.7 % (11.6-14.6); RBC Distribution Width SD 44.7 fl (35.1-43.9); Red Blood Count 3.26 M/mm3 (4.6-6.2); White Blood Count 9.7 K/mm3 (4.4-11.0)
--- NOTE | 2018-06-06 22:41 | ED.VISSUMM ---
- ER Visit Summary Date of Service: 06/06/18 Chief Complaint: Positive blood culture History of Present Illness: The patient is a 83 M who had a heart cath on May 31. He initially was cath through the right radial artery. When the patient had to be delayed secondary to a acute STEMI patient he was accessed via right groin. states they were able to get the stent in place but were not able to expand at the way they wanted to. Patient was then sent from [place] to [facility]. He was then accessed via left groin for another heart cath where they were able to get the stent appropriately located and expanded. Patient was sent home from the hospital on the . On the the patient developed a fever up to 103.5. He denies cough or shortness of breath. He denies abdominal pain, nausea, or vomiting. He was seen in the emergency room last night where work-up was overall unremarkable. After discussion with patient decision was made to let him go home. Blood culture today returned with gram-positive cocci from both sites. 1 of the tubes has been identified as staph aureus. Sensitivities are pending at this time. Patient continues to have very minimal complaint. Family states he seemed to be more weak today. He continued to have fever this afternoon. Physical Examination: Blood pressure is 103/61, temperature 99.5, heart rate 91, respiratory rate 21, pulse ox 94% on room air. Patient sitting upright in bed no acute distress. He is nontoxic appearing. Head and neck examination unremarkable. Heart is regular rate and rhythm with 3/6 murmur. Patient has known history of aortic stenosis. Lungs are clear. Abdomen is soft and nontender. Hypoactive bowel sounds are present. Extremity examination reveals a well-healed left knee anterior incision. Patient does have mild suprapatellar edema. Skin is not red or excessively warm. He is able to flex and extend knee. Patient reports pain in the tendons along the posterior knee when he flexes his knee. He has strong distal pulses. Test Results: EKG is sinus 85 with no acute ischemia. CBC was normal white count at 9.7 but 88% neutrophils noted. Hemoglobin is 9.1. Chemistry studies significant only for a sodium of 132 and a BUN of 23. Lactate is 1.4. Emergency Department Course and Treatment: Patient is given IV vancomycin. Repeat blood cultures were drawn. Patient will be admitted for IV antibiotics. Treatment Plan: [] Disposition: Admit Impression: Bacteremia This note was generated with Dyyno dictation software. It may contain incorrect words, spelling, and punctuation that were not noted in review of the chart prior to signing ED Disposition - Plan for ED Patient: Referrals: Ximena Haines MD [Primary Care Provider] -
--- NOTE | 2018-06-06 22:48 | ED.DCSUM_ITS ---
- ER Visit Summary Date of Service: 06/06/18 Chief Complaint: Positive blood culture History of Present Illness: The patient is a 83 M who had a heart cath on May 31. He initially was cath through the right radial artery. When the patient had to be delayed secondary to a acute STEMI patient he was accessed via right groin. states they were able to get the stent in place but were not able to expand at the way they wanted to. Patient was then sent from [place] to [facility]. He was then accessed via left groin for another heart cath where they were able to get the stent appropriately located and expanded. Patient was sent home from the hospital on the . On the the patient developed a fever up to 103.5. He denies cough or shortness of breath. He denies abdominal pain, nausea, or vomiting. He was seen in the emergency room last night where work-up was overall unremarkable. After discussion with patient decision was made to let him go home. Blood culture today returned with gram-positive cocci from both sites. 1 of the tubes has been identified as staph aureus. Se nsitivities are pending at this time. Patient continues to have very minimal complaint. Family states he seemed to be more weak today. He continued to have fever this afternoon. Physical Examination: Blood pressure is 103/61, temperature 99.5, heart rate 91, respiratory rate 21, pulse ox 94% on room air. Patient sitting upright in bed no acute distress. He is nontoxic appearing. Head and neck examination unremarkable. Heart is regular rate and rhythm with 3/6 murmur. Patient has known history of aortic stenosis. Lungs are clear. Abdomen is soft and nontender. Hypoactive bowel sounds are present. Extremity examination reveals a well-healed left knee anterior incision. Patient does have mild suprapatellar edema. Skin is not red or excessively warm. He is able to flex and extend knee. Patient reports pain in the tendons along the posterior knee when he flexes his knee. He has strong distal pulses. Test Results: EKG is sinus 85 with no acute ischemia. CBC was normal white count at 9.7 but 88% neutrophils noted. Hemoglobin is 9.1. Chemistry studies significant only for a sodium of 132 and a BUN of 23. Lactate is 1.4. Emergency Department Course and Treatment: Patient is given IV vancomycin. Repeat blood cultures were drawn. Patient will be admitted for IV antibiotics. Treatment Plan: [] Disposition: Admit Impression: Bacteremia This note was generated with [employer] dictation software. It may contain incorrect words, spelling, and punctuation that were not noted in review of the chart prior to signing ED Disposition - Plan for ED Patient: Referrals: Ximena Haines MD [Primary Care Provider] -
[2018-06-06 22:52] LABS: Anion Gap 7 (5-15); BUN 23 mg/dL (7-18); Calcium,Total 7.8 mg/dL (8.5-10.1); Chloride 103 mmol/L (98-107); Creatinine, Serum 1.15 mg/dL (0.70-1.30); EST Glomerular Filtration Rate 65 mL/min (>60); Est Glom Filt Rate - Afr Amer 78 mL/min (>60); Estimated Creatinine Clearance 43.92 ml/min; Glucose 113 mg/dL (74-106); Potassium 3.5 mmol/L (3.5-5.1); Sodium Level 132 mmol/L (136-145)
[2018-06-06 22:59] LABS: Lactic Acid 1.4 mmol/L (0.4-2.0)
[2018-06-06 23:05] LABS: Anisocytosis RARE; Hypochromasia RARE; Platelet Estimate ADEQUATE (ADEQ)
[2018-06-06 23:21] VITALS: BP 98/60; PULSE 80; RESP 20; O2SAT 96
[2018-06-06 23:30] VITALS: BP 98/60; PULSE 78; RESP 20; TEMP 37; O2SAT 95
--- NOTE | 2018-06-06 23:32 | PCM.HP.STD ---
Problem List (1) Positive blood cultures Status: Acute History of Present Illness Date of Admission: 06/06/18 Chief Complaint: Positive blood culture The patient is a 83 year old M seen in the emergency room at [facility] after blood cultures which were drawn on 06/05/18 resulted positive for staph aureus. Patient had 2 blood cultures drawn during his emergency room visit on that date-he was seen in the ER due to complaints of fever, workup did not reveal any source of infection and he was sent home from the emergency room. Blood cultures on 06/06/18 however resulted in positive for staph aureus and the second blood culture resulted and a gram-positive bacteria that was not identified and the patient was called in to the ER for reevaluation. Patient had a heart catheterization on May 31 at [facility], initially the right radial artery was cannulated and the procedure was then delayed due to an acute STEMI, he then was accessed to the right groin area and a stent was placed but could not be expanded and the patient had to be shipped to [facility]. The left groin area was used to insert a heart stent successfully and the patient was sent home from [facility] on 06/03/18. On 06/05/18, patient developed a fever up to 103.5 at home. Lab obtained during his emergency room visit revealed a normal white blood cell count at 9.7, hemoglobin was 9.1, chemistry panel revealed a sodium of 132, BUN of 23, and glucose of 113. Patient's lactic acid was normal, patient's temperature in the emergency room was 99.5. Examination of the patient's cardiac catheterization sites did not show any evidence of infection or redness of the sites. It was noted that the patient had some swelling around his left knee, he stated he had a left knee replacement done in February 2018, I contacted Dr. Kay who had done the surgery, he stated that if we were suspicious that the patient had a septic joint, he would advise the patient to be shipped out to another hospital for a cleanout procedure on the left knee. On examining the patient's left knee, he had quite a bit of effusion on examination but I could not definitely say that I felt he had a septic knee. Patient will be admitted to [place] [address] for bacteremia, he will be seen in consultation by infectious diseases, patient was started on vancomycin IV. 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 Moss @ [facility] 05/31/18). 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) Abnormal Heart Score CT (Chronic) Non-rheumatic aortic stenosis (Chronic) Essential (primary) hypertension (Chronic) Hyperlipidemia (Chronic) Medical History: Medical History (Last Updated 06/01/18 @ 10:07 by Anupama Farnsworth) Atherosclerotic heart disease of [place] coronary artery without angina pectoris (Chronic) I25.10 Hemorrhagic cerebrovascular accident (CVA) (Chronic) Onset Date: 10/2015 I61.9 Non-rheumatic aortic stenosis (Chronic) I35.0 Essential (primary) hypertension (Chronic) I10 Hyperlipidemia (Chronic) E78.5 Anemia D64.9 BPH (benign prostatic hyperplasia) N40.0 Carotid bruit R09.89 Celiac disease K90.0 DDD (degenerative disc disease) Erectile dysfunction N52.9 Hypothyroidism E03.9 Inflammatory arthropathy M19.90 Neoplasm of skin D49.2 Obesity E66.9 Obstructive sleep apnea G47.33 Osteoporosis M81.0 Renal artery stenosis I70.1 Smokeless tobacco use Z72.0 Allergies No Known Allergies Allergy (Verified 06/06/18 21:38) Home Medications: Ambulatory Orders Medication Instructions Recorded Finasteride [Proscar] 5 mg PO QHS 09/21/13 Gabapentin [Neurontin] 300 mg PO TIDCM 09/21/13 Levothyroxine Sodium [Synthroid] 112 mcg PO QHS 09/21/13 Pravastatin [Pravachol] 80 mg PO DAILY 09/21/13 Tamsulosin HCl [Flomax] 0.4 mg PO QHS 09/21/13 Hydroxychloroquine [Plaquenil] 200 mg PO BIDCM 10/25/15 L.acidoph,Paracasei, B.lactis 1 ea PO 10/25/15 [Probiotic] Metoprolol(XL)Succ [Toprol Xl 12.5 mg PO LUNCH 01/21/18 (Beta Humberto)] aspirin 81 mg tablet,delayed 81 mg PO QHS 04/27/18 release risedronate 150 mg tablet 150 mg PO QMONTH 84 Days #3 tab 04/27/18 tramadol 50 mg tablet 50 mg PO BID PRN PRN 30 Days #60 04/27/18 tab clopidogrel 75 mg tablet 75 mg PO DAILY #30 tab 05/05/18 nifedipine ER 30 mg 30 mg PO DAILY PRN PRN 05/05/18 tablet,extended release 24 hr ramipril 10 mg capsule 20 mg PO LUNCH cap 05/05/18 Cholecalciferol (Vitamin D3) 5,000 unit PO QHS 06/05/18 [Vitamin D3] Cyanocobalamin (Vitamin B-12) 1,000 mcg PO BID 06/05/18 [Vitamin B-12] Ferrous Sulfate [Slow Release Iron] 65 mg PO BID 06/05/18 Surgical History: Surgical History (Last Updated 06/01/18 @ 10:08 by Anupama Farnsworth) Stented coronary artery (Chronic) Onset Date: 05/31/18 Z95.5 BILL to mid LAD (2.[address] X [address] Moss @ [facility] 05/31/18). History of cataract surgery Z98.49 History of knee replacement Z96.659 History of tonsillectomy and adenoidectomy Z98.890 Surgical History: total knee arthroplasty, - - Coronary stent placement May 2018 Psychiatric History: No pertinent psych hx Lives: Spouse/ Significant Other Smoking Status: Never smoker Tobacco Use: Non-smoker Alcohol: None Drugs: None - *Family History Maternal Family History: Family History (Last Reviewed 05/05/18 @ 13:41 by João Victoria MD) Brother Myocardial infarction, Onset Age: 60 Brother Myocardial infarction, Onset Age: 65 Father Myocardial infarction, Onset Age: 60 History Items: No pertinent history Paternal Family History: Family History (Last Reviewed 05/05/18 @ 13:41 by João Victoria MD) Brother Myocardial infarction, Onset Age: 60 Brother Myocardial infarction, Onset Age: 65 Father Myocardial infarction, Onset Age: 60 History Items: Heart Disease Review of Systems Constitutional: Reports: Fever. Denies: Anorexia, Chills, Night Sweats, Malaise, Weakness, Weight Change, Fatigue Eyes: Denies: Cataracts, Conjunctivae Inflammation, Double vision, Drainage HEENT: Denies: Difficulty Swallowing, Dysphasia, Ear Pain, Eye Pain, Hearing Changes, Nasal bleeding, Nasal Congestion, Post Nasal Drip Cardiovascular: Denies: Chest Pain, Claudication, Chest Pressure, Chest Tightness, Edema, Heaviness, Palpitations, Paroxysmal Noc. Dyspnea Respiratory: Denies: Cough, Hemoptysis, Pleuritic Pain, Shortness of Breath, Shortness of breath at rest, Shortness of breath upon exertion, Sputum production Gastrointestinal: Denies: Abdominal Pain, Constipation, Diarrhea, Hematemesis, Hematochezia, Nausea, Melena, Vomiting Genitourinary: Denies: Dysuria, Frequency, Hematuria, Hesitancy, Urgency Musculoskeletal: Reports: Joint Pain - Left knee pain, Joint swelling - Left knee swelling. Denies: Back Pain, Foot Pain, Hand Pain, Joint stiffness, Joint Tenderness, Leg Pain Skin: Denies: Dryness, Pruritis, Rash Neurological: Denies: Blurred vision, Double vision, Slurred speech, Difficulty swallowing, Focal weakness, Headaches, Incoordination, Numbness, Tingling Psychiatric: Denies: Anxiety, Depression, Homicidal Ideations, Suicidal Ideations Endocrine: Denies: Change in Body Habitus, Heat/ Cold Intolerance, Polydipsia, Polyuria Hematologic/ Lymphatic: Denies: Adenopathy, Anemia, Easy Bruising, Easy Bleeding, Petechiae, Purpura VTE Information - Inpt Only VTE Present on Admission: No VTE Mechan Device Prophylaxis: None VTE Pharm Prophylaxis ordered?: Yes Patient Problems: Active and Suspected Problems (Last Updated 06/01/18 @ 10:07 by Anupama Farnsworth) Positive blood cultures (Acute) - Physical Exam General: Alert, Oriented x3, Cooperative, No apparent distress, Well developed, Well nourished HEENT: Atraumatic, PERRLA, EOMI, Normocephalic Oral: Moist Mucosa Neck: Supple, No JVD, Negative Carotid Bruits, No Nuchal Rigidity, Trachea Midline, Thyroid Normal Size and Texture Lungs: Clear to auscultation, Normal air movement, No rhonchi, No wheeze, No rales Cardiovascular: Regular rate, Regular Rhythm, Normal S1, Normal S2, Murmur - 2/6 systolic murmur is noted at the left sternal border and apex Abdomen: Bowel Sounds Present, Soft, Non Tender, Non-Distended, No hernias noted Extremities: No clubbing, No cyanosis, Capillary Refill Less than 3 Seconds, Edema - There is generalized edema noted around the left knee Skin: No rashes, No breakdown Musculoskeletal: Tenderness - Tenderness to the left knee on palpation and limited range of motion in flexion, - - There is evidence of an effusion noted around the left knee Neurological: Cranial nerves II-XII grossly intact, Neuro grossly intact, Sensory exam intact to light touch and pain, Coordination normal Psych/Mental Status: Normal Affect, Appropriate, Alert and oriented to time, place, person, mood and affect Vital Signs Temp Pulse Resp BP Pulse Ox 99.5 F H 91 21 H 103/61 94 06/06/18 21:46 06/06/18 21:46 06/06/18 21:46 06/06/18 21:46 06/06/18 21:46 Oxygen Delivery Method Room Air Weight: 85.5 kg Body Mass Index (BMI) 30.4 Finger Stick Blood Glucose 99 Laboratory Tests Past 24 Hrs 06/06/18 06/06/18 06/06/18 22:15 22:15 22:15 WBC 9.7 RBC 3.26 L Hgb 9.1 L Hct 27.0 L MCV 82.8 MCH 27.9 MCHC 33.7 RDW 14.7 H RDW Differential 44.7 H Plt Count 158 MPV 10.4 Immature Gran % (Auto) 0.300 Neut % (Auto) 88.9 H Lymph % (Auto) 3.8 L [place] % (Auto) 6.7 Eos % (Auto) 0.1 Baso % (Auto) 0.2 Absolute Neuts (auto) 8.6 H Absolute Lymphs (auto) 0.37 L Total Counted Not Reportable Differential Comment SEE COMMENT Platelet Estimate ADEQUATE Hypochromasia RARE Anisocytosis RARE Sodium 132 L Potassium 3.5 Chloride 103 Carbon Dioxide 22.0 Anion Gap 7 BUN 23 H Creatinine 1.15 Estim Creat Clear Calc 43.92 Est GFR (MDRD) Af Amer 78 Est GFR (MDRD) Non-Af 65 BUN/Creatinine Ratio 20.0 Glucose 113 H Lactic Acid 1.4 Calcium 7.8 L Assessment/Plan All Active Problems (Last Updated 06/01/18 @ 10:07 by Anupama Farnsworth) Positive blood cultures (Acute) Dehydration (Resolved) Diarrhea (Resolved) Generalized weakness (Resolved) Joint pain (Resolved) #1 acute staph bacteremia-secondary to recent cardiac catheterization-patient will be admitted to [facility], he was placed on vancomycin IV, he will be seen by infectious diseases. #2 left knee effusion and tenderness-I am not sure if the left knee is involved with any infective process, patient is currently on aspirin and Plavix, I have deferred ordering a arthrocentesis of the left knee. Infectious diseases will evaluate this area and decide whether an arthrocentesis is warranted. #3 coronary artery disease with recent stent placement #4 hyperlipidemia #5 hypertension Code Visit Inpatient E&M: 79318 Init Hosp L3
[2018-06-07] VITALS (7 sets, daily range): BP systolic 91–186; BP diastolic 48–97; PULSE 81–100; RESP 18–20; TEMP 37.2–39.8; O2SAT 96–98; BMI 28.8
--- NOTE | 2018-06-07 01:08 | PCM.RX.CS ---
Consult Pharmacy has been consulted to manage selected antiobiotic: Vancomycin Type of Consult: New start Suspected Infection: Bacteremia Labs: Sodium 132 mmol/L (136-145) L 06/06/18 22:15 Potassium 3.5 mmol/L (3.5-5.1) 06/06/18 22:15 Chloride 103 mmol/L (98-107) 06/06/18 22:15 Carbon Dioxide 22.0 mmol/L (21.0-32.0) 06/06/18 22:15 Anion Gap 7 (5-15) 06/06/18 22:15 BUN 23 mg/dL (7-18) H 06/06/18 22:15 Creatinine 1.15 mg/dL (0.70-1.30) 06/06/18 22:15 Est GFR (MDRD) Af Amer 78 mL/min (>60) 06/06/18 22:15 Est GFR (MDRD) Non-Af 65 mL/min (>60) 06/06/18 22:15 BUN/Creatinine Ratio 20.0 RATIO (10-20) 06/06/18 22:15 Glucose 113 mg/dL (74-106) H 06/06/18 22:15 Weight used for dosin kg Estimated Creatinine Clearance: 43.92 Goal Trough: 10-15 mcg/mL Pharmacy Plan for Drug Dosing: Pharmacy Service will continue to monitor and adjust dosing as required. Medications Vancomycin HCl 1,250 mg/ (Sodium Chloride) 275 mls @ 167 mls/hr IV Q24H MONIKA Discontinued Medications Vancomycin HCl 1,250 mg/ (Dextrose) 275 mls @ 250 mls/hr IV X1 ONE Stop: 06/06/18 23:08 Last Admin: 06/06/18 23:26 Dose: Not Given Follow-Up Labs: Trough Vancomycin Labs to be done on [date and time ordered]: 06/08 @ 2200
[2018-06-07] MEDS: Levothyroxine 112 MCG Tablet PO (06:09)
[2018-06-07] MEDS: Heparin Injection (Vial) 5,000 UNIT/ML VIAL 5000 UNIT SC ×3 (06:09→21:34)
[2018-06-07] MEDS: Acetaminophen 325 MG Tablet 650 MG PO ×2 (06:10→20:13)
[2018-06-07 06:59] LABS: Absolute Neutrophil Count 9.4 X10^3/uL (2.0-7.7); Basophil# 0.02 X10^3/uL; Basophil% 0.2 % (0-1); Differential Indicated SCAN CRITERIA MET; Hematocrit 31.1 % (40-54); Hemoglobin 10.4 g/dl (13.0-16.5); Lymphocyte % 4.7 % (19-41); Mean Corp Hgb Conc 33.4 g/gl (32-36); Mean Corpuscular Hgb 27.7 pg (27.0-32.0); Mean Corpuscular Volume 82.9 fL (80-94); Mean Platelet Vol. 10.6 fl (6.2-12.0); Monocyte# 0.74 X10^3/uL; Monocyte% 6.9 % (0-10); Neutrophil # 9.39 X10^3/uL (2.7-7.7); Neutrophil % 87.8 % (47-70); POSITIVE COUNT NO; POSITIVE DIFFERENTIAL YES; POSITIVE MORPHOLOGY NO; Platelet Count 131 K/mm3 (150-450); RBC Distribution Width CV 14.9 % (11.6-14.6); RBC Distribution Width SD 45.7 fl (35.1-43.9); Red Blood Count 3.75 M/mm3 (4.6-6.2); White Blood Count 10.7 K/mm3 (4.4-11.0)
[2018-06-07 07:14] LABS: Differential Comment SCANNED
--- NOTE | 2018-06-07 07:34 | NURSING ---
bp at 0605, was getting blood drawn, elevated. Will recheck later.
--- NOTE | 2018-06-07 09:23 | ECHOD_ITS ---
Reason For Study: Staph Bacteremia Procedure This was a 2D Doppler, Color Flow transthoracic echocardiogram. Exam performed portable in patient room. Left Ventricle Normal LV size. Mild concentric left ventricular hypertrophy. Left ventricular systolic function is normal. The estimated ejection fraction is 60 %. Stage 1 diastolic dysfunction. No regional wall motion abnormalities noted. Right Ventricle Normal RV size. Normal systolic function. Atria Normal left atrium. Normal right atrium. Hypermobile atrial septum. Mitral Valve Normal mitral valve. Mild (1+) eccentric mitral valve insufficiency. Tricuspid Valve Normal tricuspid valve. Mild tricuspid valve insufficiency. Aortic Valve Trisinus/trileaflet aortic valve. Mild focal aortic valve calcification. Pulmonic Valve Normal pulmonic valve. Great Vessels Normal aortic root. The pulmonary artery is normal size. Normal inferior vena cava. Pericardium/Pleural No pericardial effusion. MMode/2D Measurements & Calculations LVIDd: 3.5 cm IVSd: 1.4 cm LVOT diam: 2.3 cm LVIDs: 2.2 cm LVPWd: 1.3 cm LVOT area: 4.3 cm2 RVDd: 4.0 cm FS: 37.4 % LAV(MOD-bp): 48.6 ml LVAd ap4: 27.1 cm2 SV(MOD-sp4): 47.9 ml LAV(MOD-bp) Indexed: 25.4 ml/m2 EDV(MOD-sp4): 74.6 ml LAV(MOD-sp2): 59.6 ml EDV(sp4-el): 77.3 ml LAV(MOD-sp4): 36.1 ml LVAs ap4: 14.2 cm2 ESV(MOD-sp4): 26.7 ml ESV(sp4-el): 26.4 ml EF(MOD-sp4): 64.2 % EF(sp4-el): 65.8 % SV(sp4-el): 50.9 ml LA A4 area: 15.1 cm2 LA dimension(2D): 4.4 cm RA A4 area: 18.1 cm2 Doppler Measurements & Calculations MV E max marc: 60.8 cm/sec Lat Peak E' Marc: 10.2 cm/sec Med Peak E' Marc: 4.9 cm/sec MV A max marc: 108.0 cm/sec E/E' lat: 6.0 E/E' med: 12.4 MV E/A: 0.56 Ao V2 max: 310.2 cm/sec LV V1 max: 118.1 cm/sec SV(LVOT): 109.6 ml Ao max P.5 mmHg LV V1 max P.6 mmHg Ao V2 mean: 219.4 cm/sec LV V1 mean P.7 mmHg Ao mean P.7 mmHg LV V1 mean: 92.1 cm/sec Ao V2 VTI: 54.1 cm LV V1 VTI: 25.3 cm ROCIO(I,D): 2.0 cm2 ROCIO(V,D): 1.7 cm2 PA V2 max: 112.7 cm/sec PI end-d marc: 126.2 cm/sec TR max marc: 220.7 cm/sec TR max P.5 mmHg Interpretation Summary Hypermobile atrial septum. Normal LV size. Mild concentric left ventricular hypertrophy. Left ventricular systolic function is normal. The estimated ejection fraction is 60 %. Mild (1+) eccentric mitral valve insufficiency. Stage 1 diastolic dysfunction. Ordering Physician: Analia Gonsalez Referring Physician: Ximena Haines Performed By: Yuridia Smalls, RDCS, RVT
--- NOTE | 2018-06-07 09:24 | RAD_ITS ---
STUDY: X-RAY - LEFT KNEE REASON FOR EXAM: Male, 83 years old. Left leg swelling. Evaluate for infection. TECHNIQUE: AP and crosstable lateral view(s) of the knee. COMPARISON: Preoperative radiographs of the left knee dated June 05, 2015. FINDINGS: The patient has had total left knee arthroplasty. Normal visualized proximal tibia and fibula. Normal proximal tibiofibular articulation. Patient has distal femoral, proximal tibial and posterior patellar components. There is a large joint effusion. There is soft tissue swelling. RAD/Knee 1 or 2 Views IMPRESSION: Status post total left knee arthroplasty with joint effusion and soft tissue swelling. Electronically Signed: Qiana Helton MD at 21:08 EDT , Service support ,
[2018-06-07] MEDS: Gabapentin 300 MG Capsule PO (09:37)
[2018-06-07] MEDS: Ferrous Sulfate 325 MG Tablet PO ×2 (09:37→16:29)
[2018-06-07] MEDS: Hydroxychloroquine 200 MG Tablet PO ×2 (09:38→16:29)
[2018-06-07] MEDS: Aspirin E.C. 81 MG Tablet PO (09:38)
[2018-06-07] MEDS: Cyanocobalamin 500 MCG Tablet 1000 MCG PO ×2 (09:39→21:34)
[2018-06-07] MEDS: Finasteride 5 MG Tablet PO (09:39)
[2018-06-07] MEDS: Clopidogrel Bisulfate 75 MG Tablet PO (09:39)
[2018-06-07] MEDS: traMADol 50 MG Tablet PO ×2 (09:41→16:28)
--- NOTE | 2018-06-07 10:15 | CON.PCM_ITS ---
Problem List (1) Positive blood cultures Status: Acute Reason for Consult: Bacteremia with Staphylococcus aureus and fevers Consulted by: Shay Bennett History of Present Illness: The patient is a 83 year old M [] This is a very pleasant 83-year-old gentleman with a history of known coronary artery disease status post recent stent placement roughly a week ago in [facility]. Apparently patient was initially in this hospital had difficulty with with the coronary stenting and was transferred to an [facility] for successful coronary artery stenting. More recently roughly 2 days ago patient developed acute febrile illness and acute left knee pain with difficulty ambulating. Denies any trauma to his left knee. No cardiopulmonary distress. Because of the fevers patient was seen in this emergency department and had blood cultures obtained. Patient was then sent home and was called back to be admitted because of positive blood cultures now growing Staphylococcus aureus. In talking to the patient denies any respiratory distress. No chest pain. He states of acute left knee pain that started roughly 2 days ago. Patient did have a left total knee arthroplasty in early February 2018 and his postop course was relatively uneventful with physical therapy. Eyes any skin lesions or rashes. No headaches or focal neurological symptoms. - Medical History Past Medical History (Chronic Problems): Chronic Problems (Last Updated 06/01/18 @ 10:07 by Anupama Farnsworth) Stented coronary artery (Chronic 05/31/18) BILL to mid LAD (2.[address] X [address] Moss @ [facility] 05/31/18). 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) Abnormal Heart Score CT (Chronic) Non-rheumatic aortic stenosis (Chronic) Essential (primary) hypertension (Chronic) Hyperlipidemia (Chronic) Allergies/Adverse Reactions: Allergies No Known Allergies Allergy (Verified 06/06/18 21:38) Home Medications: Ambulatory Orders Medication Instructions Recorded Finasteride [Proscar] 5 mg PO QHS 09/21/13 Gabapentin [Neurontin] 300 mg PO TIDCM 09/21/13 Levothyroxine Sodium [Synthroid] 112 mcg PO QHS 09/21/13 Pravastatin [Pravachol] 80 mg PO DAILY 09/21/13 Tamsulosin HCl [Flomax] 0.4 mg PO QHS 09/21/13 Hydroxychloroquine [Plaquenil] 200 mg PO BIDCM 10/25/15 L.acidoph,Paracasei, B.lactis 1 ea PO 10/25/15 [Probiotic] Metoprolol(XL)Succ [Toprol Xl 12.5 mg PO LUNCH 01/21/18 (Beta Humberto)] aspirin 81 mg tablet,delayed 81 mg PO QHS 04/27/18 release risedronate 150 mg tablet 150 mg PO QMONTH 84 Days #3 tab 04/27/18 tramadol 50 mg tablet 50 mg PO BID PRN PRN 30 Days #60 04/27/18 tab clopidogrel 75 mg tablet 75 mg PO DAILY #30 tab 05/05/18 nifedipine ER 30 mg 30 mg PO DAILY PRN PRN 05/05/18 tablet,extended release 24 hr ramipril 10 mg capsule 20 mg PO LUNCH cap 05/05/18 Cholecalciferol (Vitamin D3) 5,000 unit PO QHS 06/05/18 [Vitamin D3] Cyanocobalamin (Vitamin B-12) 1,000 mcg PO BID 06/05/18 [Vitamin B-12] Ferrous Sulfate [Slow Release Iron] 65 mg PO BID 06/05/18 Vital Signs Temp Pulse Resp BP Pulse Ox 99.1 F 86 18 91/48 L 97 06/07/18 09:30 06/07/18 09:30 06/07/18 09:30 06/07/18 09:30 06/07/18 09:30 Oxygen Delivery Method Room Air Weight: 81 kg Body Mass Index (BMI) 28.8 Finger Stick Blood Glucose 99 On exam he is alert and oriented does not appear acutely ill he does have fever this morning. Conjunctivae is clear oral mucosa is dry. Lungs are clear to auscultation heart exam S1-S2 there is a systolic murmur best heard at the base 3/6. Abdomen soft nontender. His left knee is boggy and swollen with limited range of motion because of pain Laboratory Tests Past 24 Hrs 06/06/18 06/06/18 06/06/18 22:15 22:15 22:15 WBC 9.7 RBC 3.26 L Hgb 9.1 L Hct 27.0 L MCV 82.8 MCH 27.9 MCHC 33.7 RDW 14.7 H RDW Differential 44.7 H Plt Count 158 MPV 10.4 Immature Gran % (Auto) 0.300 Neut % (Auto) 88.9 H Lymph % (Auto) 3.8 L [place] % (Auto) 6.7 Eos % (Auto) 0.1 Baso % (Auto) 0.2 Absolute Neuts (auto) 8.6 H Absolute Lymphs (auto) 0.37 L Total Counted Not Reportable Differential Comment SEE COMMENT Platelet Estimate ADEQUATE Hypochromasia RARE Anisocytosis RARE Sodium 132 L Potassium 3.5 Chloride 103 Carbon Dioxide 22.0 Anion Gap 7 BUN 23 H Creatinine 1.15 Estim Creat Clear Calc 43.92 Est GFR (MDRD) Af Amer 78 Est GFR (MDRD) Non-Af 65 BUN/Creatinine Ratio 20.0 Glucose 113 H Lactic Acid 1.4 Calcium 7.8 L 06/07/18 06:36 WBC 10.7 RBC 3.75 L Hgb 10.4 L Hct 31.1 L MCV 82.9 MCH 27.7 MCHC 33.4 RDW 14.9 H RDW Differential 45.7 H Plt Count 131 L MPV 10.6 Immature Gran % (Auto) 0.400 Neut % (Auto) 87.8 H Lymph % (Auto) 4.7 L [place] % (Auto) 6.9 Eos % (Auto) 0.0 Baso % (Auto) 0.2 Absolute Neuts (auto) 9.4 H Absolute Lymphs (auto) 0.50 L Total Counted Not Reportable Differential Comment SCANNED Platelet Estimate Hypochromasia Anisocytosis Sodium Potassium Chloride Carbon Dioxide Anion Gap BUN Creatinine Estim Creat Clear Calc Est GFR (MDRD) Af Amer Est GFR (MDRD) Non-Af BUN/Creatinine Ratio Glucose Lactic Acid Calcium - Other Studies Radiology: [] Other Studies: [] Route of nutrition/ use of supplements: [] Nutritional Intake: [] IV Site: [] Amaro Catheter: [] - Assessment/Plan Antibiotics: [] Assessment/Plan: [] Active and Suspected Problems (Last Updated 06/01/18 @ 10:07 by Anupama Farnsworth) Positive blood cultures (Acute) MSSA bacteremia and acute left knee pain with 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 I did talk to the hospitalist this morning. Plan to treat with Ancef 2 g IV every 8 hours. I would recommend orthopedic consultation. Also echocardiogram has been ordered to further evaluate his he art valves. Repeat blood cultures are pending
--- NOTE | 2018-06-07 10:26 | CASEMGMT ---
Tertiary Facilities that are in-network with patient's insurance: [facility], [place], [facility], [facility], [facility], [facility], and [facility].
[2018-06-07] MEDS: Cefazolin 2 GM in 0.9% Normal Saline 100 ML IV ×3 (11:07→21:34)
[2018-06-07] MEDS: 0.9% NaCl Peripheral Flush Adult/Peds IV ×3 (11:08→21:40)
--- NOTE | 2018-06-07 11:42 | PCM.CONS.GEN ---
Reason for Consult Date of Consultation: 06/07/18 Reason for Consultation: Left knee pain, swelling, fevers and chills History of Present Illness: The patient is a 83 year old M [who underwent a TKR by myself in February. His post-op course was uneventful and his knee was feeling well. Approximately 1 week ago he suffered a STEMI and had multiple heart catheterizations. Ultimately, he was transferred to [facility] where he underwent cardiac stenting. 2 days ago he developed acute left knee pain and swelling. He had fevers and chills. He went to [facility] ED where blood cultures taken grew MSSA. He was admitted to [facility] last night at which time I spoke with Dr. Wall. Subsequently, I spoke with Dr. Gonsalez this morning. At the time of my evaluation, the patient was resting comfortably in bed with his at bedside. He reported 4/10 left knee pain with motion of the knee. He states left knee is painful with ROM or weight bearing. He notes this is new as of approximately 2 days ago. 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 Moss @ [facility] 05/31/18). 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) Abnormal Heart Score CT (Chronic) Non-rheumatic aortic stenosis (Chronic) Essential (primary) hypertension (Chronic) Hyperlipidemia (Chronic) Medical History: Medical History (Last Updated 06/01/18 @ 10:07 by Anupama Farnsworth) Atherosclerotic heart disease of [place] coronary artery without angina pectoris (Chronic) I25.10 Hemorrhagic cerebrovascular accident (CVA) (Chronic) Onset Date: 10/2015 I61.9 Non-rheumatic aortic stenosis (Chronic) I35.0 Essential (primary) hypertension (Chronic) I10 Hyperlipidemia (Chronic) E78.5 Anemia D64.9 BPH (benign prostatic hyperplasia) N40.0 Carotid bruit R09.89 Celiac disease K90.0 DDD (degenerative disc disease) Erectile dysfunction N52.9 Hypothyroidism E03.9 Inflammatory arthropathy M19.90 Neoplasm of skin D49.2 Obesity E66.9 Obstructive sleep apnea G47.33 Osteoporosis M81.0 Renal artery stenosis I70.1 Smokeless tobacco use Z72.0 Allergies No Known Allergies Allergy (Verified 06/06/18 21:38) Home Medications: Ambulatory Orders Medication Instructions Recorded Finasteride [Proscar] 5 mg PO QHS 09/21/13 Gabapentin [Neurontin] 300 mg PO TIDCM 09/21/13 Levothyroxine Sodium [Synthroid] 112 mcg PO QHS 09/21/13 Pravastatin [Pravachol] 80 mg PO DAILY 09/21/13 Tamsulosin HCl [Flomax] 0.4 mg PO QHS 09/21/13 Hydroxychloroquine [Plaquenil] 200 mg PO BIDCM 10/25/15 L.acidoph,Paracasei, B.lactis 1 ea PO 10/25/15 [Probiotic] Metoprolol(XL)Succ [Toprol Xl 12.5 mg PO LUNCH 01/21/18 (Beta Humberto)] aspirin 81 mg tablet,delayed 81 mg PO QHS 04/27/18 release risedronate 150 mg tablet 150 mg PO QMONTH 84 Days #3 tab 04/27/18 tramadol 50 mg tablet 50 mg PO BID PRN PRN 30 Days #60 04/27/18 tab clopidogrel 75 mg tablet 75 mg PO DAILY #30 tab 05/05/18 nifedipine ER 30 mg 30 mg PO DAILY PRN PRN 05/05/18 tablet,extended release 24 hr ramipril 10 mg capsule 20 mg PO LUNCH cap 05/05/18 Cholecalciferol (Vitamin D3) 5,000 unit PO QHS 06/05/18 [Vitamin D3] Cyanocobalamin (Vitamin B-12) 1,000 mcg PO BID 06/05/18 [Vitamin B-12] Ferrous Sulfate [Slow Release Iron] 65 mg PO BID 06/05/18 Surgical History: Surgical History (Last Updated 06/01/18 @ 10:08 by Anupama Farnsworth) Stented coronary artery (Chronic) Onset Date: 05/31/18 Z95.5 BILL to mid LAD (2.75 X [address] Moss @ [facility] 05/31/18). History of cataract surgery Z98.49 History of knee replacement Z96.659 History of tonsillectomy and adenoidectomy Z98.890 Surgical History: total knee arthroplasty, - - Coronary stent placement May 2018 Psychiatric History: No pertinent psych hx Lives: Spouse/ Significant Other Smoking Status: Never smoker Tobacco Use: Non-smoker Alcohol: None Drugs: None - *Family History Maternal Family History: Family History (Last Reviewed 05/05/18 @ 13:41 by João Victoria MD) Brother Myocardial infarction, Onset Age: 60 Brother Myocardial infarction, Onset Age: 65 Father Myocardial infarction, Onset Age: 60 History Items: No pertinent history Paternal Family History: Family History (Last Reviewed 05/05/18 @ 13:41 by João Vcitoria MD) Brother Myocardial infarction, Onset Age: 60 Brother Myocardial infarction, Onset Age: 65 Father Myocardial infarction, Onset Age: 60 History Items: Heart Disease Patient Problems: Active and Suspected Problems (Last Updated 06/01/18 @ 10:07 by Anupama Farnsworth) Positive blood cultures (Acute) Objective: PMHx, PSHx, Family Hx, ROS, Medications and allergies reviewed as per intake H & P. - Physical Exam General: Alert, Oriented x3, Cooperative, No apparent distress HEENT: Atraumatic Neck: Supple Extremities: No clubbing, No cyanosis, No edema, Capillary Refill Less than 3 Seconds, No Calf Tenderness, Tenderness - Left knee with warmth and 3+ effusion. Incision is well healed without drainage or dehiscence. ROM is 10-100 with pain Neurological: Neuro grossly intact Psych/Mental Status: Normal Affect, Appropriate, Anxious Vital Signs Temp Pulse Resp BP Pulse Ox 99.1 F 86 18 91/48 L 97 06/07/18 09:30 06/07/18 09:30 06/07/18 09:30 06/07/18 09:30 06/07/18 09:30 Oxygen Delivery Method Room Air Weight: 178 lb 9.191 oz Body Mass Index (BMI) 28.8 Finger Stick Blood Glucose 99 Intake and Output for Last 24 Hours 06/05/18 06/06/18 06/07/18 23:59 23:59 23:59 Intake Total 467 / 467 Output Total 425 / 425 Balance 42 / 42 Laboratory Tests Past 24 Hrs 06/06/18 06/06/18 06/06/18 22:15 22:15 22:15 WBC 9.7 RBC 3.26 L Hgb 9.1 L Hct 27.0 L MCV 82.8 MCH 27.9 MCHC 33.7 RDW 14.7 H RDW Differential 44.7 H Plt Count 158 MPV 10.4 Immature Gran % (Auto) 0.300 Neut % (Auto) 88.9 H Lymph % (Auto) 3.8 L [place] % (Auto) 6.7 Eos % (Auto) 0.1 Baso % (Auto) 0.2 Absolute Neuts (auto) 8.6 H Absolute Lymphs (auto) 0.37 L Total Counted Not Reportable Differential Comment SEE COMMENT Platelet Estimate ADEQUATE Hypochromasia RARE Anisocytosis RARE Sodium 132 L Potassium 3.5 Chloride 103 Carbon Dioxide 22.0 Anion Gap 7 BUN 23 H Creatinine 1.15 Estim Creat Clear Calc 43.92 Est GFR (MDRD) Af Amer 78 Est GFR (MDRD) Non-Af 65 BUN/Creatinine Ratio 20.0 Glucose 113 H Lactic Acid 1.4 Calcium 7.8 L 06/07/18 06:36 WBC 10.7 RBC 3.75 L Hgb 10.4 L Hct 31.1 L MCV 82.9 MCH 27.7 MCHC 33.4 RDW 14.9 H RDW Differential 45.7 H Plt Count 131 L MPV 10.6 Immature Gran % (Auto) 0.400 Neut % (Auto) 87.8 H Lymph % (Auto) 4.7 L [place] % (Auto) 6.9 Eos % (Auto) 0.0 Baso % (Auto) 0.2 Absolute Neuts (auto) 9.4 H Absolute Lymphs (auto) 0.50 L Total Counted Not Reportable Differential Comment SCANNED Platelet Estimate Hypochromasia Anisocytosis Sodium Potassium Chloride Carbon Dioxide Anion Gap BUN Creatinine Estim Creat Clear Calc Est GFR (MDRD) Af Amer Est GFR (MDRD) Non-Af BUN/Creatinine Ratio Glucose Lactic Acid Calcium Assessment/Plan All Active Problems (Last Updated 06/01/18 @ 10:07 by Anupama Farnsworth) Positive blood cultures (Acute) Dehydration (Resolved) Diarrhea (Resolved) Generalized weakness (Resolved) Joint pain (Resolved) Left knee pain and effusion. Probable septic arthritis after TKR. Because of his recent cardiac history, I recommend that he be transferred to a tertiary center for further attention. He will likely need I & D with a poly exchange of the left knee and 6 weeks of IV antibiotics. I discussed with he and his that he may need a two-stage explant and revision of his left TKR. I discussed this with Drs. Wall and Sunshine. Will follow closely.
--- NOTE | 2018-06-07 11:52 | CON.PCM_ITS ---
Reason for Consult Date of Consultation: 06/07/18 Reason for Consultation: Left knee pain, swelling, fevers and chills History of Present Illness: The patient is a 83 year old M [who underwent a TKR by myself in February. His post-op course was uneventful and his knee was feeling well. Approximately 1 week ago he suffered a STEMI and had multiple heart catheterizations. Ultimately, he was transferred to [facility] where he underwent cardiac stenting. 2 days ago he developed acute left knee pain and swelling. He had fevers and chills. He went to [facility] ED where blood cultures taken grew MSSA. He was admitted to [facility] last night at which time I spoke with Dr. Wall. Subsequently, I spoke with Dr. Gonsalez this morning. At the time of my evaluation, the patient was resting comfortably in bed with his at bedside. He reported 4/10 left knee pain with motion of the knee. He states left knee is painful with ROM or weight bearing. He notes this is new as of approximately 2 days ago. 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 Moss @ [facility] 05/31/18). 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) Abnormal Heart Score CT (Chronic) Non-rheumatic aortic stenosis (Chronic) Essential (primary) hypertension (Chronic) Hyperlipidemia (Chronic) Medical History: Medical History (Last Updated 06/01/18 @ 10:07 by Anupama Farnsworth) Atherosclerotic heart disease of [place] coronary artery without angina pectoris (Chronic) I25.10 Hemorrhagic cerebrovascular accident (CVA) (Chronic) Onset Date: 10/2015 I61.9 Non-rheumatic aortic stenosis (Chronic) I35.0 Essential (primary) hypertension (Chronic) I10 Hyperlipidemia (Chronic) E78.5 Anemia D64.9 BPH (benign prostatic hyperplasia) N40.0 Carotid bruit R09.89 Celiac disease K90.0 DDD (degenerative disc disease) Erectile dysfunction N52.9 Hypothyroidism E03.9 Inflammatory arthropathy M19.90 Neoplasm of skin D49.2 Obesity E66.9 Obstructive sleep apnea G47.33 Osteoporosis M81.0 Renal artery stenosis I70.1 Smokeless tobacco use Z72.0 Allergies No Known Allergies Allergy (Verified 06/06/18 21:38) Home Medications: Ambulatory Orders Medication Instructions Recorded Finasteride [Proscar] 5 mg PO QHS 09/21/13 Gabapentin [Neurontin] 300 mg PO TIDCM 09/21/13 Levothyroxine Sodium [Synthroid] 112 mcg PO QHS 09/21/13 Pravastatin [Pravachol] 80 mg PO DAILY 09/21/13 Tamsulosin HCl [Flomax] 0.4 mg PO QHS 09/21/13 Hydroxychloroquine [Plaquenil] 200 mg PO BIDCM 10/25/15 L.acidoph,Paracasei, B.lactis 1 ea PO 10/25/15 [Probiotic] Metoprolol(XL)Succ [Toprol Xl 12.5 mg PO LUNCH 01/21/18 (Beta Humberto)] aspirin 81 mg tablet,delayed 81 mg PO QHS 04/27/18 release risedronate 150 mg tablet 150 mg PO QMONTH 84 Days #3 tab 04/27/18 tramadol 50 mg tablet 50 mg PO BID PRN PRN 30 Days #60 04/27/18 tab clopidogrel 75 mg tablet 75 mg PO DAILY #30 tab 05/05/18 nifedipine ER 30 mg 30 mg PO DAILY PRN PRN 05/05/18 tablet,extended release 24 hr ramipril 10 mg capsule 20 mg PO LUNCH cap 05/05/18 Cholecalciferol (Vitamin D3) 5,000 unit PO QHS 06/05/18 [Vitamin D3] Cyanocobalamin (Vitamin B-12) 1,000 mcg PO BID 06/05/18 [Vitamin B-12] Ferrous Sulfate [Slow Release Iron] 65 mg PO BID 06/05/18 Surgical History: Surgical History (Last Updated 06/01/18 @ 10:08 by Anupama Farnsworth) Stented coronary artery (Chronic) Onset Date: 05/31/18 Z95.5 BILL to mid LAD (2.75 X [address] Moss @ [facility] 05/31/18). History of cataract surgery Z98.49 History of knee replacement Z96.659 History of tonsillectomy and adenoidectomy Z98.890 Surgical History: total knee arthroplasty, - - Coronary stent placement May 2018 Psychiatric History: No pertinent psych hx Lives: Spouse/ Significant Other Smoking Status: Never smoker Tobacco Use: Non-smoker Alcohol: None Drugs: None - *Family History Maternal Family History: Family History (Last Reviewed 05/05/18 @ 13:41 by João Victoria MD) Brother Myocardial infarction, Onset Age: 60 Brother Myocardial infarction, Onset Age: 65 Father Myocardial infarction, Onset Age: 60 History Items: No pertinent history Paternal Family History: Family History (Last Reviewed 05/05/18 @ 13:41 by João Victoria MD) Brother Myocardial infarction, Onset Age: 60 Brother Myocardial infarction, Onset Age: 65 Father Myocardial infarction, Onset Age: 60 History Items: Heart Disease Patient Problems: Active and Suspected Problems (Last Updated 06/01/18 @ 10:07 by Anupama Farnsworth) Positive blood cultures (Acute) Objective: PMHx, PSHx, Family Hx, ROS, Medications and allergies reviewed as per intake H & P. - Physical Exam General: Alert, Oriented x3, Cooperative, No apparent distress HEENT: Atraumatic Neck: Supple Extremities: No clubbing, No cyanosis, No edema, Capillary Refill Less than 3 Seconds, No Calf Tenderness, Tenderness - Left knee with warmth and 3+ effusion. Incision is well healed without drainage or dehiscence. ROM is 10-100 with pain Neurological: Neuro grossly intact Psych/Mental Status: Normal Affect, Appropriate, Anxious Vital Signs Temp Pulse Resp BP Pulse Ox 99.1 F 86 18 91/48 L 97 06/07/18 09:30 06/07/18 09:30 06/07/18 09:30 06/07/18 09:30 06/07/18 09:30 Oxygen Delivery Method Room Air Weight: 178 lb 9.191 oz Body Mass Index (BMI) 28.8 Finger Stick Blood Glucose 99 Intake and Output for Last 24 Hours 06/05/18 06/06/18 06/07/18 23:59 23:59 23:59 Intake Total 467 / 467 Output Total 425 / 425 Balance 42 / 42 Laboratory Tests Past 24 Hrs 06/06/18 06/06/18 06/06/18 22:15 22:15 22:15 WBC 9.7 RBC 3.26 L Hgb 9.1 L Hct 27.0 L MCV 82.8 MCH 27.9 MCHC 33.7 RDW 14.7 H RDW Differential 44.7 H Plt Count 158 MPV 10.4 Immature Gran % (Auto) 0.300 Neut % (Auto) 88.9 H Lymph % (Auto) 3.8 L [place] % (Auto) 6.7 Eos % (Auto) 0.1 Baso % (Auto) 0.2 Absolute Neuts (auto) 8.6 H Absolute Lymphs (auto) 0.37 L Total Counted Not Reportable Differential Comment SEE COMMENT Platelet Estimate ADEQUATE Hypochromasia RARE Anisocytosis RARE Sodium 132 L Potassium 3.5 Chloride 103 Carbon Dioxide 22.0 Anion Gap 7 BUN 23 H Creatinine 1.15 Estim Creat Clear Calc 43.92 Est GFR (MDRD) Af Amer 78 Est GFR (MDRD) Non-Af 65 BUN/Creatinine Ratio 20.0 Glucose 113 H Lactic Acid 1.4 Calcium 7.8 L 06/07/18 06:36 WBC 10.7 RBC 3.75 L Hgb 10.4 L Hct 31.1 L MCV 82.9 MCH 27.7 MCHC 33.4 RDW 14.9 H RDW Differential 45.7 H Plt Count 131 L MPV 10.6 Immature Gran % (Auto) 0.400 Neut % (Auto) 87.8 H Lymph % (Auto) 4.7 L [place] % (Auto) 6.9 Eos % (Auto) 0.0 Baso % (Auto) 0.2 Absolute Neuts (auto) 9.4 H Absolute Lymphs (auto) 0.50 L Total Counted Not Reportable Differential Comment SCANNED Platelet Estimate Hypochromasia Anisocytosis Sodium Potassium Chloride Carbon Dioxide Anion Gap BUN Creatinine Estim Creat Clear Calc Est GFR (MDRD) Af Amer Est GFR (MDRD) Non-Af BUN/Creatinine Ratio Glucose Lactic Acid Calcium Assessment/Plan All Active Problems (Last Updated 06/01/18 @ 10:07 by Anupama Farnsworth) Positive blood cultures (Acute) Dehydration (Resolved) Diarrhea (Resolved) Generalized weakness (Resolved) Joint pain (Resolved) Left knee pain and effusion. Probable septic arthritis after TKR. Because of his recent cardiac history, I recommend that he be transferred to a tertiary center for further attention. He will likely need I & D with a poly exchange of the left knee and 6 weeks of IV antibiotics. I discussed with he and his that he may need a two-stage explant and revision of his left TKR. I discussed this with Drs. Wall and Sunshine. Will follow closely.
--- NOTE | 2018-06-07 15:00 | PCM.PN.HOSP ---
Patient Problems: Active and Suspected Problems (Last Updated 06/01/18 @ 10:07 by Anupama Farnsworth) Positive blood cultures (Acute) Subjective: Patient seen and examined. He was admitted with a complaint of pain in the left knee and difficulty to weight bear on the LLE. Patient had a left knee replacement done 3 months ago. Blood cultures done in the ED were positive for MSSA. Repeat set of blood cultures axle turner positive today for MSSA as well. He is been managed for possible septic arthritis of the left knee prosthesis. ID and orthopedic surgery has been consulted. Of note, patient recently had a stent placed in the left anterior descending artery in [facility]. He had initially been admitted in [facility] but due to severe calcification, he was transferred to [place] where he had a stent put in. Per discussion with Dr. Kay, he felt that anesthesia would not be comfortable having patient here for surgery on account of recent stent placement. Hospitalist called [facility] to transfer patient there. However orthopedic surgeon street contractor Dr. Laron Caicedo refused to accept patient. Orthopedic surgeon Dr. Kay discussed with Dr. Caicedo on phone. Plan is to keep patient here for surgery as Dr. Kay discussed with the anesthesiologist Dr. Lindo and they are comfortable doing the procedure here. Patient is for knee washout tomorrow. Vitals/I&O's: Vital Signs Temp Pulse Resp BP Pulse Ox 99.4 F H 84 18 137/74 H 97 06/07/18 13:11 06/07/18 13:11 06/07/18 13:11 06/07/18 13:11 06/07/18 13:11 Oxygen Delivery Method Room Air Weight: 178 lb 9.191 oz Body Mass Index (BMI) 28.8 Finger Stick Blood Glucose 99 Intake and Output for Last 24 Hours 06/05/18 06/06/18 06/07/18 23:59 23:59 23:59 Intake Total 467 / 467 Output Total 425 / 425 Balance 42 / 42 General: Alert, Oriented x3, Cooperative, No apparent distress HEENT: Atraumatic, PERRLA, EOMI, Normocephalic Oral: Moist Mucosa Neck: Supple, No JVD, Negative Carotid Bruits Lungs: Clear to auscultation, Normal air movement, No rhonchi, No wheeze, No rales Cardiovascular: Regular rate, Regular Rhythm, Normal S1, Normal S2, No murmurs Abdomen: Bowel Sounds Present, Soft, Non Tender, Non-Distended, No Hepato-splenomegaly Extremities: - - left knee swollen, tender, fluctuant with an effusion. severe tenderness on attempts to move the knee. Skin: No rashes, No breakdown Musculoskeletal: No Tenderness to Palpation of Joints or Extremities, - - as under extremities Lymphatic: No Cervical, Supraclavicular, or Inguinal Adenopathy Neurological: Cranial nerves II-XII grossly intact, Neuro grossly intact, - - decreased power of 4/5 in LLE due to pain Psych/Mental Status: Normal Affect, Appropriate, Alert and oriented to time, place, person, mood and affect Microbiology Past 72 Hours 06/06/18 22:15 Blood Culture (Wb) - Venous Blood Culture - Preliminary 06/06/18 22:15 Blood Culture (Wb) - Venous Blood Culture - Preliminary Laboratory Results 06/06/18 22:15: WBC 9.7, RBC 3.26 L, Hgb 9.1 L, Hct 27.0 L, MCV 82.8, MCH 27.9, MCHC 33.7, RDW 14.7 H, RDW Differential 44.7 H, Plt Count 158, MPV 10.4, Immature Gran % (Auto) 0.300, Neut % (Auto) 88.9 H, Lymph % (Auto) 3.8 L, [place] % (Auto) 6.7, Eos % (Auto) 0.1, Baso % (Auto) 0.2, Absolute Neuts (auto) 8.6 H, Absolute Lymphs (auto) 0.37 L, Total Counted Not Reportable, Differential Comment SEE COMMENT, Platelet Estimate ADEQUATE, Hypochromasia RARE, Anisocytosis RARE 06/06/18 22:15: Sodium 132 L, Potassium 3.5, Chloride 103, Carbon Dioxide 22.0, Anion Gap 7, BUN 23 H, Creatinine 1.15, Estim Creat Clear Calc 43.92, Est GFR (MDRD) Af Amer 78, Est GFR (MDRD) Non-Af 65, BUN/Creatinine Ratio 20.0, Glucose 113 H, Calcium 7.8 L 06/06/18 22:15: Lactic Acid 1.4 06/07/18 06:36: WBC 10.7, RBC 3.75 L, Hgb 10.4 L, Hct 31.1 L, MCV 82.9, MCH 27.7, MCHC 33.4, RDW 14.9 H, RDW Differential 45.7 H, Plt Count 131 L, MPV 10.6, Immature Gran % (Auto) 0.400, Neut % (Auto) 87.8 H, Lymph % (Auto) 4.7 L, [place] % (Auto) 6.9, Eos % (Auto) 0.0, Baso % (Auto) 0.2, Absolute Neuts (auto) 9.4 H, Absolute Lymphs (auto) 0.50 L, Total Counted Not Reportable, Differential Comment SCANNED Current Medications Acetaminophen (Tylenol) 650 mg PO Q6H PRN PRN PRN Reason: Mild Pain (1-3)/Temp > 100.7 F Last Admin: 06/07/18 06:10 Dose: 650 mg Aspirin (Ecotrin) 81 mg PO DAILY [facility] Last Admin: 06/07/18 09:38 Dose: 81 mg Clopidogrel Bisulfate (Plavix) 75 mg PO DAILY [facility] Last Admin: 06/07/18 09:39 Dose: 75 mg Cyanocobalamin (Vitamin B12) 1,000 mcg PO BID [facility] Last Admin: 06/07/18 09:39 Dose: 1,000 mcg [facility]ous [facility] Last Admin: 06/07/18 09:37 Dose: 325 mg Finasteride (Proscar) 5 mg PO DAILY [facility] Last Admin: 06/07/18 09:39 Dose: 5 mg Heparin Sodium (Porcine) (Heparin Na) 5,000 unit SC Q8 [facility] Last Admin: 06/07/18 13:14 Dose: 5,000 unit Hydroxychloroquine [facility] ([facility]) [facility] Last Admin: 06/07/18 09:38 Dose: 200 mg Sodium Chloride () 250 mls @ 15 mls/hr IV .[id number] PRN PRN Reason: SALINE FLUSH Cefazolin Sodium 2 gm/ Sodium (Chloride) 110 mls @ 150 mls/hr IV Q8 [facility] Last Admin: 06/07/18 11:07 Dose: 150 mls/hr Levothyroxine Sodium (Synthroid) 112 mcg PO DAILY@0600 [facility] Last Admin: 06/07/18 06:09 Dose: 112 mcg Pravastatin Sodium (Pravachol) 80 mg PO QHS MONIKA Sodium Chloride () 5 - 15 ml IV UD PRN PRN Reason: SALINE FLUSH Last Admin: 06/07/18 11:08 Dose: 10 ml Tramadol HCl (Ultram) 50 mg PO Q6H PRN PRN PRN Reason: MODERATE PAIN (4-5/10) Last Admin: 06/07/18 09:41 Dose: 50 mg Medical Necessity - Tobacco Use Smoking Status: Never smoker Tobacco Use: Non-smoker Assessment/Plan All Active Problems (Last Updated 06/01/18 @ 10:07 by Anupama Farnsworth) Positive blood cultures (Acute) Dehydration (Resolved) Diarrhea (Resolved) Generalized weakness (Resolved) Joint pain (Resolved) 1. Acute MSSA bacteremia due to septic arthritis of left knee prosthesis admitted with 2 day history of left knee pain and swelling initial blood cultures from ED grew MSSA; repeat blood cultures also grew staph aureus has no leucocytosis; temperature is up to 103.6 left knee xray pending; Was on vancomycin and this was switched to cefazolin 2D echo ordered to assess for infective endocarditis. Orthopedic surgeon consulted: Initially plan to transfer patient on account of possible risks with anesthesia as patient recently had a stents. However congenital orthopedic surgery service refused transfer. Patient to have left knee washout tomorrow by orthopedic surgery. Anesthesia okay with doing surgery. 2. Left knee prosthesis septic arthritis: as under 1. 3. CAD s/p stents: had recent stent placed in LAD in [facility] o/a of severe calcification in LAD, after initial cardiac cath was done here on 05/31/18. On aspirin and Plavix. Orthopedics had wanted aspirin and Plavix held but per discussion with Dr. Victoria, patient to be kept on aspirin and Plavix on account of risk of in-stent thrombosis. Per orthopedic request, cardiology consulted to assess cardiac perioperative risk. 4. Hyperlipidemia: on statin 5. Hypertension: BP noted to be running low this morning with systolic in the 90s. BP medications held. Metoprolol, nifedipine as well as Flomax held. 6. Hyponatremia: sodium is 132. currently stable. Will monitor DVT prophylaxis: heparin Code Visit Inpatient E&M: [id number] [place] [id number]
--- NOTE | 2018-06-07 15:07 | PN_ITS ---
Patient Problems: Active and Suspected Problems (Last Updated 06/01/18 @ 10:07 by Anupama Farnsworth) Positive blood cultures (Acute) Subjective: Patient seen and examined. He was admitted with a complaint of pain in the left knee and difficulty to weight bear on the LLE. Patient had a left knee replacement done 3 months ago. Blood cultures done in the ED were positive for MSSA. Repeat set of blood cultures field scout positive today for MSSA as well. He is been managed for possible septic arthritis of the left knee prosthesis. ID and orthopedic surgery has been consulted. Of note, patient recently had a stent placed in the left anterior descending artery in [facility]. He had initially been admitted in [facility] but due to severe calcification, he was transferred to [place] where he had a stent put in. Per discussion with Dr. Kay, he felt that anesthesia would not be comfortable having patient here for surgery on account of recent stent placement. Hospitalist called [facility] to transfer patient there. However orthopedic surgeon grey iron molder Dr. Laron Caicedo refused to accept patient. Orthopedic surgeon Dr. Kay discussed with Dr. Caicedo on phone. Plan is to keep patient here for surgery as Dr. Kay discussed with the anesthesiologist Dr. Lindo and they are comfortable doing the procedure here. Patient is for knee washout tomorrow. Vitals/I&O's: Vital Signs Temp Pulse Resp BP Pulse Ox 99.4 F H 84 18 137/74 H 97 06/07/18 13:11 06/07/18 13:11 06/07/18 13:11 06/07/18 13:11 06/07/18 13:11 Oxygen Delivery Method Room Air Weight: 178 lb 9.191 oz Body Mass Index (BMI) 28.8 Finger Stick Blood Glucose 99 Intake and Output for Last 24 Hours 06/05/18 06/06/18 06/07/18 23:59 23:59 23:59 Intake Total 467 / 467 Output Total 425 / 425 Balance 42 / 42 General: Alert, Oriented x3, Cooperative, No apparent distress HEENT: Atraumatic, PERRLA, EOMI, Normocephalic Oral: Moist Mucosa Neck: Supple, No JVD, Negative Carotid Bruits Lungs: Clear to auscultation, Normal air movement, No rhonchi, No wheeze, No rales Cardiovascular: Regular rate, Regular Rhythm, Normal S1, Normal S2, No murmurs Abdomen: Bowel Sounds Present, Soft, Non Tender, Non-Distended, No Hepato- splenomegaly Extremities: - - left knee swollen, tender, fluctuant with an effusion. severe tenderness on attempts to move the knee. Skin: No rashes, No breakdown Musculoskeletal: No Tenderness to Palpation of Joints or Extremities, - - as under extremities Lymphatic: No Cervical, Supraclavicular, or Inguinal Adenopathy Neurological: Cranial nerves II-XII grossly intact, Neuro grossly intact, - - decreased power of 4/5 in LLE due to pain Psych/Mental Status: Normal Affect, Appropriate, Alert and oriented to time, place, person, mood and affect Microbiology Past 72 Hours 06/06/18 22:15 Blood Culture (Wb) - Venous Blood Culture - Preliminary 06/06/18 22:15 Blood Culture (Wb) - Venous Blood Culture - Preliminary Laboratory Results 06/06/18 22:15: WBC 9.7, RBC 3.26 L, Hgb 9.1 L, Hct 27.0 L, MCV 82.8, MCH 27.9, MCHC 33.7, RDW 14.7 H, RDW Differential 44.7 H, Plt Count 158, MPV 10.4, Immature Gran % (Auto) 0.300, Neut % (Auto) 88.9 H, Lymph % (Auto) 3.8 L, [place] % (Auto) 6.7, Eos % (Auto) 0.1, Baso % (Auto) 0.2, Absolute Neuts (auto) 8.6 H, Absolute Lymphs (auto) 0.37 L, Total Counted Not Reportable, Differential Comment SEE COMMENT, Platelet Estimate ADEQUATE, Hypochromasia RARE, Anisocytosis RARE 06/06/18 22:15: Sodium 132 L, Potassium 3.5, Chloride 103, Carbon Dioxide 22.0, Anion Gap 7, BUN 23 H, Creatinine 1.15, Estim Creat Clear Calc 43.92, Est GFR (MDRD) Af Amer 78, Est GFR (MDRD) Non-Af 65, BUN/Creatinine Ratio 20.0, Glucose 113 H, Calcium 7.8 L 06/06/18 22:15: Lactic Acid 1.4 06/07/18 06:36: WBC 10.7, RBC 3.75 L, Hgb 10.4 L, Hct 31.1 L, MCV 82.9, MCH 27.7, MCHC 33.4, RDW 14.9 H, RDW Differential 45.7 H, Plt Count 131 L, MPV 10.6, Immature Gran % (Auto) 0.400, Neut % (Auto) 87.8 H, Lymph % (Auto) 4.7 L, [place] % (Auto) 6.9, Eos % (Auto) 0.0, Baso % (Auto) 0.2, Absolute Neuts (auto) 9.4 H, Absolute Lymphs (auto) 0.50 L, Total Counted Not Reportable, Differential Comment SCANNED Current Medications Acetaminophen (Tylenol) 650 mg PO Q6H PRN PRN PRN Reason: Mild Pain (1-3)/Temp > 100.7 F Last Admin: 06/07/18 06:10 Dose: 650 mg Aspirin (Ecotrin) 81 mg PO DAILY PENDING SALE TO [facility] Last Admin: 06/07/18 09:38 Dose: 81 mg Clopidogrel Bisulfate (Plavix) 75 mg PO DAILY PENDING SALE TO [facility] Last Admin: 06/07/18 09:39 Dose: 75 mg Cyanocobalamin (Vitamin B12) 1,000 mcg PO BID PENDING SALE TO [facility] Last Admin: 06/07/18 09:39 Dose: 1,000 mcg [facility]ous S[facility]) [facility] Last Admin: 06/07/18 09:37 Dose: 325 mg Finasteride (Proscar) 5 mg PO DAILY PENDING SALE TO [facility] Last Admin: 06/07/18 09:39 Dose: 5 mg Heparin Sodium (Porcine) (Heparin Na) 5,000 unit SC Q8 PENDING SALE TO [facility] Last Admin: 06/07/18 13:14 Dose: 5,000 unit Hydroxychloroquine Sulfate (Plaquenil) 200 [facility] Last Admin: 06/07/18 09:38 Dose: 200 mg Sodium Chloride () 250 mls @ 15 mls/hr IV .[id number] PRN PRN Reason: SALINE FLUSH Cefazolin Sodium 2 gm/ Sodium (Chloride) 110 mls @ 150 mls/hr IV Q8 PENDING SALE TO [facility] Last Admin: 06/07/18 11:07 Dose: 150 mls/hr Levothyroxine Sodium (Synthroid) 112 mcg PO DAILY@0600 PENDING SALE TO [facility] Last Admin: 06/07/18 06:09 Dose: 112 mcg Pravastatin Sodium (Pravachol) 80 mg PO QHS MONIKA Sodium Chloride () 5 - 15 ml IV UD PRN PRN Reason: SALINE FLUSH Last Admin: 06/07/18 11:08 Dose: 10 ml Tramadol HCl (Ultram) 50 mg PO Q6H PRN PRN PRN Reason: MODERATE PAIN (4-5/10) Last Admin: 06/07/18 09:41 Dose: 50 mg Medical Necessity - Tobacco Use Smoking Status: Never smoker Tobacco Use: Non-smoker Assessment/Plan All Active Problems (Last Updated 06/01/18 @ 10:07 by Anupama Farnsworth) Positive blood cultures (Acute) Dehydration (Resolved) Diarrhea (Resolved) Generalized weakness (Resolved) Joint pain (Resolved) 1. Acute MSSA bacteremia due to septic arthritis of left knee prosthesis * admitted with 2 day history of left knee pain and swelling * initial blood cultures from ED grew MSSA; repeat blood cultures also grew staph aureus * has no leucocytosis; temperature is up to 103.6 * left knee xray pending; * Was on vancomycin and this was switched to cefazolin * 2D echo ordered to assess for infective endocarditis. * Orthopedic surgeon consulted: Initially plan to transfer patient on account of possible risks with anesthesia as patient recently had a stents. However congenital orthopedic surgery service refused transfer. Patient to have left knee washout tomorrow by orthopedic surgery. Anesthesia okay with doing surgery. 2. Left knee prosthesis septic arthritis: as under 1. 3. CAD s/p stents: * had recent stent placed in LAD in [facility] o/a of severe calcification in LAD, after initial cardiac cath was done here on 05/31/18. * On aspirin and Plavix. Orthopedics had wanted aspirin and Plavix held but per discussion with Dr. Victoria, patient to be kept on aspirin and Plavix on account of risk of in-stent thrombosis. * Per orthopedic request, cardiology consulted to assess cardiac perioperative risk. * 4. Hyperlipidemia: on statin 5. Hypertension: BP noted to be running low this morning with systolic in the 90s. BP medications held. Metoprolol, nifedipine as well as Flomax held. 6. Hyponatremia: sodium is 132. currently stable. Will monitor DVT prophylaxis: heparin Code Visit Inpatient E&M: [id number] [facility] Hosp L3
--- NOTE | 2018-06-07 16:16 | PCM.CONS.C ---
Reason for Consult Date of Consultation: 06/07/18 Reason for Consultation: Preop cardiac assessment History of Present Illness: The patient is a 83 year old M with a history of known coronary artery disease status post recent angioplasty and stenting last week of the left anterior descending artery. The left circumflex artery and right coronary artery had minimal disease. He also had preserved left ventricular systolic function. He says that he has been having knee discomfort as well as a febrile illness he came to the emergency room and underwent evaluation and admission to the hospital he was noted to have methicillin-resistant staph aureus and is probably localized to the knee. Cardiology was called to see him and render an opinion regarding his cardiac status. He denies any chest pain no shortness of breath no paroxysmal nocturnal dyspnea or pedal edema. He has had no neck arm or jaw discomfort suggest angina. He still has bruising in his left groin from the procedure. [] Past Medical History Allergies/Adverse Reactions: Allergies No Known Allergies Allergy (Verified 06/06/18 21:38) Home Medications: Ambulatory Orders Medication Instructions Recorded Finasteride [Proscar] 5 mg PO QHS 09/21/13 Gabapentin [Neurontin] 300 mg PO TIDCM 09/21/13 Levothyroxine Sodium [Synthroid] 112 mcg PO QHS 09/21/13 Pravastatin [Pravachol] 80 mg PO DAILY 09/21/13 Tamsulosin HCl [Flomax] 0.4 mg PO QHS 09/21/13 Hydroxychloroquine [Plaquenil] 200 mg PO BIDCM 10/25/15 L.acidoph,Paracasei, B.lactis 1 ea PO 10/25/15 [Probiotic] Metoprolol(XL)Succ [Toprol Xl 12.5 mg PO LUNCH 01/21/18 (Beta Humberto)] aspirin 81 mg tablet,delayed 81 mg PO QHS 04/27/18 release risedronate 150 mg tablet 150 mg PO QMONTH 84 Days #3 tab 04/27/18 tramadol 50 mg tablet 50 mg PO BID PRN PRN 30 Days #60 04/27/18 tab clopidogrel 75 mg tablet 75 mg PO DAILY #30 tab 05/05/18 nifedipine ER 30 mg 30 mg PO DAILY PRN PRN 05/05/18 tablet,extended release 24 hr ramipril 10 mg capsule 20 mg PO LUNCH cap 05/05/18 Cholecalciferol (Vitamin D3) 5,000 unit PO QHS 06/05/18 [Vitamin D3] Cyanocobalamin (Vitamin B-12) 1,000 mcg PO BID 06/05/18 [Vitamin B-12] Ferrous Sulfate [Slow Release Iron] 65 mg PO BID 06/05/18 Past Medical History (Chronic Problems): Chronic Problems (Last Updated 06/01/18 @ 10:07 by Anupama Farnsworth) Stented coronary artery (Chronic 05/31/18) BILL to mid LAD (2.[address] X [address] Moss @ [facility] 05/31/18). 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) Abnormal Heart Score CT (Chronic) Non-rheumatic aortic stenosis (Chronic) Essential (primary) hypertension (Chronic) Hyperlipidemia (Chronic) Surgical History: total knee arthroplasty, - - Coronary stent placement May 2018 Psychiatric History: No pertinent psych hx - *Family History Maternal Family History: Family History (Last Reviewed 05/05/18 @ 13:41 by João Victoria MD) Brother Myocardial infarction, Onset Age: 60 Brother Myocardial infarction, Onset Age: 65 Father Myocardial infarction, Onset Age: 60 History Items: No pertinent history Paternal Family History: Family History (Last Reviewed 05/05/18 @ 13:41 by João Victoria MD) Brother Myocardial infarction, Onset Age: 60 Brother Myocardial infarction, Onset Age: 65 Father Myocardial infarction, Onset Age: 60 History Items: Heart Disease Lives: Spouse/ Significant Other Smoking Status: Never smoker Tobacco Use: Non-smoker Alcohol: None Drugs: None Review of Systems - Review of Systems General: Reports: Fever, Malaise, Chills. Denies: Fatigue, Night Sweats HEENT: Denies: Vision Change Cardiovascular: Denies: Chest Discomfort, Shortness of Breath, Orthopnea, PND, Peripheral Edema, Palpitations, Lightheadedness, Dizziness, Near Syncope, Syncope Respiratory: Denies: Cough, Sputum Production, Hemoptysis Gastrointestinal: Denies: Hematemesis, Hematochezia, Melena Genitourinary: Denies: Dysuria, Hematuria Muscoloskeletal: Reports: Joint Pain, - - Left knee pain Skin: Denies: Rash Neurological: Denies: Dizziness Psychiatric: Denies: Anxiety Endocrine: Denies: Unexplained Weight Loss Objective: Vital Signs Temp Pulse Resp BP Pulse Ox 99.4 F H 84 18 137/74 H 97 06/07/18 13:11 06/07/18 13:11 06/07/18 13:11 06/07/18 13:11 06/07/18 13:11 Oxygen Delivery Method Room Air Weight: 178 lb 9.191 oz Body Mass Index (BMI) 28.8 Finger Stick Blood Glucose 99 Intake and Output for Last 24 Hours 06/05/18 06/06/18 06/07/18 23:59 23:59 23:59 Intake Total 467 / 467 Output Total 425 / 425 Balance 42 / 42 06/06/18 22:15: WBC 9.7, RBC 3.26 L, Hgb 9.1 L, Hct 27.0 L, MCV 82.8, MCH 27.9, MCHC 33.7, RDW 14.7 H, RDW Differential 44.7 H, Plt Count 158, MPV 10.4, Immature Gran % (Auto) 0.300, Neut % (Auto) 88.9 H, Lymph % (Auto) 3.8 L, [place] % (Auto) 6.7, Eos % (Auto) 0.1, Baso % (Auto) 0.2, Absolute Neuts (auto) 8.6 H, Total Counted Not Reportable 06/06/18 22:15: Sodium 132 L, Potassium 3.5, Chloride 103, Carbon Dioxide 22.0, Anion Gap 7, BUN 23 H, Creatinine 1.15, Est GFR (MDRD) Af Amer 78, Est GFR (MDRD) Non-Af 65, BUN/Creatinine Ratio 20.0, Glucose 113 H, Calcium 7.8 L 06/06/18 22:15: Lactic Acid 1.4 06/07/18 06:36: WBC 10.7, RBC 3.75 L, Hgb 10.4 L, Hct 31.1 L, MCV 82.9, MCH 27.7, MCHC 33.4, RDW 14.9 H, RDW Differential 45.7 H, Plt Count 131 L, MPV 10.6, Immature Gran % (Auto) 0.400, Neut % (Auto) 87.8 H, Lymph % (Auto) 4.7 L, [place] % (Auto) 6.9, Eos % (Auto) 0.0, Baso % (Auto) 0.2, Absolute Neuts (auto) 9.4 H, Total Counted Not Reportable Rhythm: EKG: ECHO: Stress Test: Cardiac Cath: PCI: CT Surgery: Holter monitor: EPS: PPM: CXR: Chest CT Scan: Assessment/Plan Preoperative cardiac assessment. The patient recently underwent elective cardiac catheterization, angioplasty and stenting of the left anterior descending artery. The procedure was done less than a week ago with a drug-eluting stent. At this time I do not think that it would be advisable to discontinue his aspirin or Plavix as the stents would not have endothelialized at this time. His echocardiogram performed today demonstrated no wall motion abnormalities and his valves appeared to be normal with no evidence of endocarditis. From the cardiac standpoint I do not see any contraindication to him undergoing the procedure except of course for the bleeding risk as he would remain on the clopidogrel and aspirin. The above has been discussed with the patient and family. Thank you for allowing me to participate in his care.
--- NOTE | 2018-06-07 16:20 | CON.PCM_ITS ---
Reason for Consult Date of Consultation: 06/07/18 Reason for Consultation: Preop cardiac assessment History of Present Illness: The patient is a 83 year old M with a history of known coronary artery disease status post recent angioplasty and stenting last week of the left anterior jewels cending artery. The left circumflex artery and right coronary artery had minimal disease. He also had preserved left ventricular systolic function. He says that he has been having knee discomfort as well as a febrile illness he came to the emergency room and underwent evaluation and admission to the hospital he was noted to have methicillin-resistant staph aureus and is probably localized to the knee. Cardiology was called to see him and render an opinion regarding his cardiac status. He denies any chest pain no shortness of breath no paroxysmal nocturnal dyspnea or pedal edema. He has had no neck arm or jaw discomfort suggest angina. He still has bruising in his left groin from the procedure. [] Past Medical History Allergies/Adverse Reactions: Allergies No Known Allergies Allergy (Verified 06/06/18 21:38) Home Medications: Ambulatory Orders Medication Instructions Recorded Finasteride [Proscar] 5 mg PO QHS 09/21/13 Gabapentin [Neurontin] 300 mg PO TIDCM 09/21/13 Levothyroxine Sodium [Synthroid] 112 mcg PO QHS 09/21/13 Pravastatin [Pravachol] 80 mg PO DAILY 09/21/13 Tamsulosin HCl [Flomax] 0.4 mg PO QHS 09/21/13 Hydroxychloroquine [Plaquenil] 200 mg PO BIDCM 10/25/15 L.acidoph,Paracasei, B.lactis 1 ea PO 10/25/15 [Probiotic] Metoprolol(XL)Succ [Toprol Xl 12.5 mg PO LUNCH 01/21/18 (Beta Humberto)] aspirin 81 mg tablet,delayed 81 mg PO QHS 04/27/18 release risedronate 150 mg tablet 150 mg PO QMONTH 84 Days #3 tab 04/27/18 tramadol 50 mg tablet 50 mg PO BID PRN PRN 30 Days #60 04/27/18 tab clopidogrel 75 mg tablet 75 mg PO DAILY #30 tab 05/05/18 nifedipine ER 30 mg 30 mg PO DAILY PRN PRN 05/05/18 tablet,extended release 24 hr ramipril 10 mg capsule 20 mg PO LUNCH cap 05/05/18 Cholecalciferol (Vitamin D3) 5,000 unit PO QHS 06/05/18 [Vitamin D3] Cyanocobalamin (Vitamin B-12) 1,000 mcg PO BID 06/05/18 [Vitamin B-12] Ferrous Sulfate [Slow Release Iron] 65 mg PO BID 06/05/18 Past Medical History (Chronic Problems): Chronic Problems (Last Updated 06/01/18 @ 10:07 by Anupama Farnsworth) Stented coronary artery (Chronic 05/31/18) JEWELS to mid LAD (2.75 X [address] Moss @ [facility] 05/31/18). 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) Abnormal Heart Score CT (Chronic) Non-rheumatic aortic stenosis (Chronic) Essential (primary) hypertension (Chronic) Hyperlipidemia (Chronic) Surgical History: total knee arthroplasty, - - Coronary stent placement May 2018 Psychiatric History: No pertinent psych hx - *Family History Maternal Family History: Family History (Last Reviewed 05/05/18 @ 13:41 by João Victoria MD) Brother Myocardial infarction, Onset Age: 60 Brother Myocardial infarction, Onset Age: 65 Father Myocardial infarction, Onset Age: 60 History Items: No pertinent history Paternal Family History: Family History (Last Reviewed 05/05/18 @ 13:41 by João Victoria MD) Brother Myocardial infarction, Onset Age: 60 Brother Myocardial infarction, Onset Age: 65 Father Myocardial infarction, Onset Age: 60 History Items: Heart Disease Lives: Spouse/ Significant Other Smoking Status: Never smoker Tobacco Use: Non-smoker Alcohol: None Drugs: None Review of Systems - Review of Systems General: Reports: Fever, Malaise, Chills. Denies: Fatigue, Night Sweats HEENT: Denies: Vision Change Cardiovascular: Denies: Chest Discomfort, Shortness of Breath, Orthopnea, PND, Peripheral Edema, Palpitations, Lightheadedness, Dizziness, Near Syncope, Syncope Respiratory: Denies: Cough, Sputum Production, Hemoptysis Gastrointestinal: Denies: Hematemesis, Hematochezia, Melena Genitourinary: Denies: Dysuria, Hematuria Muscoloskeletal: Reports: Joint Pain, - - Left knee pain Skin: Denies: Rash Neurological: Denies: Dizziness Psychiatric: Denies: Anxiety Endocrine: Denies: Unexplained Weight Loss Objective: Vital Signs Temp Pulse Resp BP Pulse Ox 99.4 F H 84 18 137/74 H 97 06/07/18 13:11 06/07/18 13:11 06/07/18 13:11 06/07/18 13:11 06/07/18 13:11 Oxygen Delivery Method Room Air Weight: 178 lb 9.191 oz Body Mass Index (BMI) 28.8 Finger Stick Blood Glucose 99 Intake and Output for Last 24 Hours 06/05/18 06/06/18 06/07/18 23:59 23:59 23:59 Intake Total 467 / 467 Output Total 425 / 425 Balance 42 / 42 06/06/18 22:15: WBC 9.7, RBC 3.26 L, Hgb 9.1 L, Hct 27.0 L, MCV 82.8, MCH 27.9, MCHC 33.7, RDW 14.7 H, RDW Differential 44.7 H, Plt Count 158, MPV 10.4, Immature Gran % (Auto) 0.300, Neut % (Auto) 88.9 H, Lymph % (Auto) 3.8 L, [place] % (Auto) 6.7, Eos % (Auto) 0.1, Baso % (Auto) 0.2, Absolute Neuts (auto) 8.6 H, Total Counted Not Reportable 06/06/18 22:15: Sodium 132 L, Potassium 3.5, Chloride 103, Carbon Dioxide 22.0, Anion Gap 7, BUN 23 H, Creatinine 1.15, Est GFR (MDRD) Af Amer 78, Est GFR (MDRD) Non-Af 65, BUN/Creatinine Ratio 20.0, Glucose 113 H, Calcium 7.8 L 06/06/18 22:15: Lactic Acid 1.4 06/07/18 06:36: WBC 10.7, RBC 3.75 L, Hgb 10.4 L, Hct 31.1 L, MCV 82.9, MCH 27.7, MCHC 33.4, RDW 14.9 H, RDW Differential 45.7 H, Plt Count 131 L, MPV 10.6, Immature Gran % (Auto) 0.400, Neut % (Auto) 87.8 H, Lymph % (Auto) 4.7 L, [place] % (Auto) 6.9, Eos % (Auto) 0.0, Baso % (Auto) 0.2, Absolute Neuts (auto) 9.4 H, Total Counted Not Reportable Rhythm: EKG: ECHO: Stress Test: Cardiac Cath: PCI: CT Surgery: Holter monitor: EPS: PPM: CXR: Chest CT Scan: Assessment/Plan Preoperative cardiac assessment. * The patient recently underwent elective cardiac catheterization, angioplasty and stenting of the left anterior descending artery. The procedure was done less than a week ago with a drug-eluting stent. At this time I do not think that it would be advisable to discontinue his aspirin or Plavix as the stents would not have endothelialized at this time. * His echocardiogram performed today demonstrated no wall motion abnormalities and his valves appeared to be normal with no evidence of endocarditis. * From the cardiac standpoint I do not see any contraindication to him undergoing the procedure except of course for the bleeding risk as he would remain on the clopidogrel and aspirin. * The above has been discussed with the patient and family. Thank you for allowing me to participate in his care.
[2018-06-07 17:23] LABS: Erythrocyte Sedimentation Rate 70 mm/hr (0-20)
--- NOTE | 2018-06-07 17:37 | PN.ORTHO_ITS ---
Patient Problems: Active and Suspected Problems (Last Updated 06/01/18 @ 10:07 by Anupama Farnsworth) Positive blood cultures (Acute) Subjective: Patient reports left knee pain. Swelling slightly worse than earlier today. - Physical Exam General: Alert, Oriented x3, Cooperative Extremities: No clubbing, No cyanosis, Capillary Refill Less than 3 Seconds, No Calf Tenderness, Edema, Tenderness - About left knee with 3+ effusion. Incision intact Comment: Under sterile conditions, 30 cc of purulent fluid was aspirated from knee. Vital Signs Temp Pulse Resp BP Pulse Ox 99.4 F H 84 18 137/74 H 97 06/07/18 13:11 06/07/18 13:11 06/07/18 13:11 06/07/18 13:11 06/07/18 13:11 Oxygen Delivery Method Room Air Weight: 178 lb 9.191 oz Body Mass Index (BMI) 28.8 Finger Stick Blood Glucose 99 Intake and Output for Last 24 Hours 06/05/18 06/06/18 06/07/18 23:59 23:59 23:59 Intake Total 467 / 467 Output Total 425 / 425 Balance 42 / 42 Microbiology Past 72 Hours 06/06/18 22:15 Blood Culture - Preliminary Blood Culture (Wb) - Venous 06/06/18 22:15 Blood Culture - Preliminary Blood Culture (Wb) - Venous Laboratory Tests Past 24 Hrs 06/06/18 06/06/18 06/06/18 22:15 22:15 22:15 WBC 9.7 RBC 3.26 L Hgb 9.1 L Hct 27.0 L MCV 82.8 MCH 27.9 MCHC 33.7 RDW 14.7 H RDW Differential 44.7 H Plt Count 158 MPV 10.4 Immature Gran % (Auto) 0.300 Neut % (Auto) 88.9 H Lymph % (Auto) 3.8 L [place] % (Auto) 6.7 Eos % (Auto) 0.1 Baso % (Auto) 0.2 Absolute Neuts (auto) 8.6 H Absolute Lymphs (auto) 0.37 L Total Counted Not Reportable Differential Comment SEE COMMENT Platelet Estimate ADEQUATE Hypochromasia RARE Anisocytosis RARE ESR Sodium 132 L Potassium 3.5 Chloride 103 Carbon Dioxide 22.0 Anion Gap 7 BUN 23 H Creatinine 1.15 Estim Creat Clear Calc 43.92 Est GFR (MDRD) Af Amer 78 Est GFR (MDRD) Non-Af 65 BUN/Creatinine Ratio 20.0 Glucose 113 H Lactic Acid 1.4 Calcium 7.8 L C-React Prot Ext Range 06/06/18 06/07/18 06/07/18 22:15 06:36 17:05 WBC 10.7 RBC 3.75 L Hgb 10.4 L Hct 31.1 L MCV 82.9 MCH 27.7 MCHC 33.4 RDW 14.9 H RDW Differential 45.7 H Plt Count 131 L MPV 10.6 Immature Gran % (Auto) 0.400 Neut % (Auto) 87.8 H Lymph % (Auto) 4.7 L [place] % (Auto) 6.9 Eos % (Auto) 0.0 Baso % (Auto) 0.2 Absolute Neuts (auto) 9.4 H Absolute Lymphs (auto) 0.50 L Total Counted Not Reportable Differential Comment SCANNED Platelet Estimate Hypochromasia Anisocytosis ESR 70 H Sodium Potassium Chloride Carbon Dioxide Anion Gap BUN Creatinine Estim Creat Clear Calc Est GFR (MDRD) Af Amer Est GFR (MDRD) Non-Af BUN/Creatinine Ratio Glucose Lactic Acid Calcium C-React Prot Ext Range 174.00 H Medical Necessity - Tobacco Use Smoking Status: Never smoker Tobacco Use: Non-smoker Assessment/Plan All Active Problems (Last Updated 06/01/18 @ 10:07 by Anupama Farnsworth) Positive blood cultures (Acute) Dehydration (Resolved) Diarrhea (Resolved) Generalized weakness (Resolved) Joint pain (Resolved) Septic arthritis left knee Aspirated 30 cc of purulent fluid from knee. Will send for gram stain, C & S. Plan on I & D tomorrow.
--- NOTE | 2018-06-07 18:20 | NURSING ---
PT STATES PAIN ONLY WITH MOVEMENT
--- NOTE | 2018-06-07 20:10 | PCM.PN.BLA ---
Progress Note PT seen and examined history reviewed with pt. cardiac cath last week followed by 2 days of pain in left knee (prev tka 02/2018). blood cultures +. will follow join aspiration r/b discussed with p of I&D. considering medical comorbidities and recent VT pt not a good candidate for 2 stage revision. with acuity of symptoms i think pt would do well with I&D and synovectomy. Will follow aspiration cultures and lab has agreed to perform a cell count on the fluid. Will look to proceed with surgery tomorrow evening or thursday morning. considering patients cardiac history and acuity of symptoms would be willing to perform on thursday in order to avoid late start for case if able to do at an earlier hour in the day. SAW
--- NOTE | 2018-06-07 20:20 | PN_ITS ---
Progress Note PT seen and examined history reviewed with pt. cardiac cath last week followed by 2 days of pain in left knee (prev tka 02/2018). blood cultures +. will follow join aspiration r/b discussed with p of I&D. considering medical comorbidities and recent MA pt not a good candidate for 2 stage revision. with acuity of symptoms i think pt would do well with I&D and synovectomy. Will follow aspiration cultures and lab has agreed to perform a cell count on the fluid. Will look to proceed with surgery tomorrow evening or thursday morning. considering patients cardiac history and acuity of symptoms would be willing to perform on thursday in order to avoid late start for case if able to do at an earlier hour in the day. SAW
[2018-06-07] MEDS: Pravastatin 80 MG Tablet PO (21:34)
[2018-06-07 22:01] LABS: RBC /Synovial Fluid 0.009 10^6/uL (0); Synovial Fld Mononuclear WBC % 24.9 %; Synovial Fld Polynuclear WBC % 75.1 %
[2018-06-07 22:02] LABS: AUTO B FLUID DILUENT BKGD CT WBC <0.1 RBC <0.01 (W<.1,R<.01); Appearance /Synovial Fluid Cloudy (CLEAR); Color / Synovial Fluid Yellow (Pale Yellow); Source / Synovial Fluid LEFT KNEE; Viscosity / Synovial Fluid Sl. Viscous (HIGH)
[2018-06-07 22:40] LABS: Lymph 8 %; Monocyte /Synovial Fluid 20 %; Neutrophil 72 % (0-25)
[2018-06-07 22:41] LABS: Body Fluid QC Type(s) BF2Q
[2018-06-08 02:00] VITALS: BP 147/84; PULSE 89; RESP 18; TEMP 37.4; O2SAT 99
[2018-06-08 05:49] LABS: International Normalized Ratio 1.2; Partial Thromboplast Time 39.5 Seconds (24.1-36.2); Prothrombin Time (Protime)PT. 14.7 SECONDS (11.7-14.9)
[2018-06-08] MEDS: Levothyroxine 112 MCG Tablet PO (05:52)
[2018-06-08] MEDS: Cefazolin 2 GM in 0.9% Normal Saline 100 ML IV ×3 (05:52→22:34)
[2018-06-08 06:02] LABS: Absolute Lymphocyte Count 0.39 X10^3/ul (0.83-4.51); Absolute Neutrophil Count 5.4 X10^3/uL (2.0-7.7); Basophil# 0.01 X10^3/uL; Basophil% 0.2 % (0-1); Differential Indicated SCAN CRITERIA MET; Eosinophil# 0.01 X10^3/uL; Eosinophils% 0.2 % (0-5); Hemoglobin 9.4 g/dl (13.0-16.5); Lymphocyte # 0.39 X10^3/ul (4.0); Lymphocyte % 6.4 % (19-41); Mean Corp Hgb Conc 33.6 g/gl (32-36); Mean Corpuscular Hgb 27.6 pg (27.0-32.0); Mean Corpuscular Volume 82.4 fL (80-94); Mean Platelet Vol. 10.6 fl (6.2-12.0); Monocyte# 0.29 X10^3/uL; Monocyte% 4.8 % (0-10); Neutrophil # 5.36 X10^3/uL (2.7-7.7); Neutrophil % 88.1 % (47-70); POSITIVE COUNT NO; POSITIVE DIFFERENTIAL YES; POSITIVE MORPHOLOGY NO; Platelet Count 160 K/mm3 (150-450); RBC Distribution Width CV 14.8 % (11.6-14.6); RBC Distribution Width SD 45.1 fl (35.1-43.9); White Blood Count 6.1 K/mm3 (4.4-11.0)
[2018-06-08 06:07] LABS: Anion Gap 8 (5-15); BUN 18 mg/dL (7-18); BUN/Creat Ratio 17.6 RATIO (10-20); Calcium,Total 8.2 mg/dL (8.5-10.1); Chloride 100 mmol/L (98-107); Creatinine, Serum 1.02 mg/dL (0.70-1.30); EST Glomerular Filtration Rate 74 mL/min (>60); Est Glom Filt Rate - Afr Amer 90 mL/min (>60); Estimated Creatinine Clearance 49.52 ml/min; Glucose 103 mg/dL (74-106); Potassium 3.6 mmol/L (3.5-5.1); Sodium Level 131 mmol/L (136-145); Thyroid Stim Hormone (TSH) 1.65 uIU/mL (0.358-3.74)
--- NOTE | 2018-06-08 07:11 | PCM.PN.BLA ---
Progress Note cell count reviewed, 13K wbcs, 72% neutrophils with Elevated ESR and CRP and purulent fluid from knee meet MSIS criteria for PJI. SAW
--- NOTE | 2018-06-08 08:05 | PCM.PN.ORT ---
Patient Problems: Active and Suspected Problems (Last Updated 06/01/18 @ 10:07 by Anupama Farnsworth) Positive blood cultures (Acute) Subjective: Patient sitting up in bed awake. Patient states pain is well managed. Patient states he feels fine, other than his knee is quite painful. Patient states he is able to move his left knee but is painful with movement. Patient denies chest pain, shortness of breath, calf pain, nausea vomiting. Otherwise no other complaints Objective: Patient lying in bed, awake. No obvious respiratory distress. Patient speaking in full sentences. Patient appears to be nontoxic. Good motion of the upper extremities bilateral hips right knee and leg. Left knee, is swollen warm to touch. Patient is lacking approximately 5 degrees full extension he has flexion to approximately 70 degrees with severe pain. Patient calf is nontender he has strong distal posterior tibial and dorsalis pedal pulses. Review of patient's labs, and vitals, show patient has no increase in elevation of white count and temp is 99. - Physical Exam General: Alert, Oriented x3, Cooperative HEENT: PERRLA Oral: Moist Mucosa Cardiovascular: Regular rate Neurological: Cranial nerves II-XII grossly intact Psych/Mental Status: Normal Affect, Alert and oriented to time, place, person, mood and affect Vital Signs Temp Pulse Resp BP Pulse Ox 99.3 F H 89 18 147/84 H 99 06/08/18 02:00 06/08/18 02:00 06/08/18 02:00 06/08/18 02:00 06/08/18 02:00 Oxygen Delivery Method Room Air Weight: 81 kg Body Mass Index (BMI) 28.8 Finger Stick Blood Glucose 99 Intake and Output for Last 24 Hours 06/06/18 06/07/18 06/08/18 23:59 23:59 23:59 Intake Total 1547 / 1547 1001 / 1001 Output Total 675 / 675 1125 / 1125 Balance 872 / 872 -124 / -124 Microbiology Past 72 Hours 06/06/18 22:15 Blood Culture - Preliminary Blood Culture (Wb) - Venous 06/06/18 22:15 Blood Culture - Preliminary Blood Culture (Wb) - Venous Laboratory Tests Past 24 Hrs 06/06/18 06/07/18 06/07/18 22:15 17:05 17:26 WBC RBC Hgb Hct MCV MCH MCHC RDW RDW Differential Plt Count MPV Immature Gran % (Auto) Neut % (Auto) Lymph % (Auto) [place] % (Auto) Eos % (Auto) Baso % (Auto) Absolute Neuts (auto) Absolute Lymphs (auto) Total Counted Differential Comment ESR 70 H PT INR APTT Sodium Potassium Chloride Carbon Dioxide Anion Gap BUN Creatinine Estim Creat Clear Calc Est GFR (MDRD) Af Amer Est GFR (MDRD) Non-Af BUN/Creatinine Ratio Glucose Calcium C-React Prot Ext Range 174.00 H TSH Fluid Source Cancelled Fluid Color Cancelled Fluid Appearance Cancelled Fluid WBC Cancelled Fluid RBC Cancelled Fluid Tot Cell Count Cancelled Fld Polynuclear WBCs # Cancelled Fld Polynuclear WBCs % Cancelled Fluid Mononuclear WBCs Cancelled Fld Mononuclear WBCs % Cancelled Fluid Neutrophils Cancelled Fluid Lymphocytes Cancelled Fluid Monocytes Cancelled Fluid Plasma Cells Cancelled Fluid Macrophages Cancelled Fld Mesothelial Cells Cancelled Fluid Other Cells Cancelled Fl Pathologist Comment Cancelled Fluid Comment 2 Cancelled Synovial Source LEFT KNEE Synovial Color Yellow Synovial Appearance Cloudy Synovial Viscosity Sl. Viscous Synovial WBC 13.3720 H Synovial RBC 0.009 H Synovial Tot Cell Ct 13.5980 H Synov Polynuclear WBCs 9.053 Synovial Neutrophils 72 H Synovial Lymphocytes 8 Synovial Monocytes 20 Synovial Polynuclear % 75.1 Synovial Mononuclear % 24.9 Synovial [address] Comment May follow 06/08/18 06/08/18 06/08/18 05:00 05:00 05:00 WBC 6.1 RBC 3.40 L Hgb 9.4 L Hct 28.0 L MCV 82.4 MCH 27.6 MCHC 33.6 RDW 14.8 H RDW Differential 45.1 H Plt Count 160 MPV 10.6 Immature Gran % (Auto) 0.300 Neut % (Auto) 88.1 H Lymph % (Auto) 6.4 L [place] % (Auto) 4.8 Eos % (Auto) 0.2 Baso % (Auto) 0.2 Absolute Neuts (auto) 5.4 Absolute Lymphs (auto) 0.39 L Total Counted Not Reportable Differential Comment ESR PT 14.7 INR 1.2 APTT 39.5 H Sodium 131 L Potassium 3.6 Chloride 100 Carbon Dioxide 23.0 Anion Gap 8 BUN 18 Creatinine 1.02 Estim Creat Clear Calc 49.52 Est GFR (MDRD) Af Amer 90 Est GFR (MDRD) Non-Af 74 BUN/Creatinine Ratio 17.6 Glucose 103 Calcium 8.2 L C-React Prot Ext Range TSH 1.65 Fluid Source Fluid Color Fluid Appearance Fluid WBC Fluid RBC Fluid Tot Cell Count Fld Polynuclear WBCs # Fld Polynuclear WBCs % Fluid Mononuclear WBCs Fld Mononuclear WBCs % Fluid Neutrophils Fluid Lymphocytes Fluid Monocytes Fluid Plasma Cells Fluid Macrophages Fld Mesothelial Cells Fluid Other Cells Fl Pathologist Comment Fluid Comment 2 Synovial Source Synovial Color Synovial Appearance Synovial Viscosity Synovial WBC Synovial RBC Synovial Tot Cell Ct Synov Polynuclear WBCs Synovial Neutrophils Synovial Lymphocytes Synovial Monocytes Synovial Polynuclear % Synovial Mononuclear % Synovial Path Comment Medical Necessity - Tobacco Use Smoking Status: Never smoker Tobacco Use: Non-smoker Assessment/Plan All Active Problems (Last Updated 06/01/18 @ 10:07 by Anupama Farnsworth) Positive blood cultures (Acute) Dehydration (Resolved) Diarrhea (Resolved) Generalized weakness (Resolved) Joint pain (Resolved) Septic left knee Plan 1. Continue all pain medications as prescribed 2. Patient to remain n.p.o. with possible surgery this afternoon. 3. Continue all antibiotics as prescribed 4. Continue ice to left knee 5. I did review and discuss with the patient, per Dr. Felton it is anticipated to take this patient to surgery this afternoon if surgery scheduling permits for washout of left knee
[2018-06-08 09:35] LABS: Osmolality, Serum 268 mOsm/KG (280-301)
[2018-06-08] MEDS: Ferrous Sulfate 325 MG Tablet PO ×2 (09:53→17:34)
[2018-06-08] MEDS: Finasteride 5 MG Tablet PO (09:53)
[2018-06-08] MEDS: Cyanocobalamin 500 MCG Tablet 1000 MCG PO ×2 (09:53→22:35)
[2018-06-08] MEDS: Clopidogrel Bisulfate 75 MG Tablet PO (09:53)
[2018-06-08] MEDS: Hydroxychloroquine 200 MG Tablet PO ×2 (09:53→17:34)
[2018-06-08] MEDS: Aspirin E.C. 81 MG Tablet PO (09:53)
[2018-06-08] MEDS: traMADol 50 MG Tablet PO ×3 (09:59→23:49)
[2018-06-08 10:06] VITALS: BP 134/69; PULSE 100; RESP 18; TEMP 37.1; O2SAT 96
--- NOTE | 2018-06-08 12:00 | CASEMGMT ---
[facility] [place] Face to Face with patient for initial transition planning/care coordination assessment. RN CM introduced self and role at [facility]. Patient sitting in bed, alert and oriented. Patient willing to participate in assessment and is able to answer all questions appropriately. Care providers, pharmacy, and demographics verified. Patient wishes to discharge home with possible HHC if patient needs IV ATBs at discharge. Patient states he has no further needs or concerns at this time. CM to follow for discharge planning needs that may arise. PCP: Zaki Specialists: Julien it network engineer Preferred Pharmacy: [facility] Insurance: [employer] [facility] Prescription Benefit: [employer] [facility] Living Will/HPOA: Alisha Au HPOA LNOK: Living Arrangements: Patient lives with in 1 story home with his man cave in basement. Patient independent at home. Transportation: DME/HHC: Patient has cane and walker at home. Has been to [facility] for outpatient therapy in the past. Will monitor need for HHC for IV ATBs at discharge. Disposition Plan: Patient to discharge home family support, and follow-up plans in place. Possible HHC for IV ATBs. Mary Lou CULP, RN, CM
--- NOTE | 2018-06-08 12:15 | PCM.PN.HOSP ---
Patient Problems: Active and Suspected Problems (Last Updated 06/01/18 @ 10:07 by Anupama Farnsworth) Positive blood cultures (Acute) Subjective: Patient seen and examined. He still has pain in his left knee but it is better. He had aspiration of the knee done by orthopedics yesterday and sample sent for cultures. Both sets of blood cultures grew MRSA. 2D echo done was negative for any vegetation. Denies any fever chills, palpitations or dizziness, chest pain, abdominal pain, diarrhea or vomiting. He had a mild fever in the early hours of this morning at 99.3 Fahrenheit. Orthopedics on board and he is due to have result of the knee tomorrow. Labs and vitals reviewed Vitals/I&O's: Vital Signs Temp Pulse Resp BP Pulse Ox 98.8 F 100 18 134/69 H 96 06/08/18 10:06 06/08/18 10:06 06/08/18 10:06 06/08/18 10:06 06/08/18 10:06 Oxygen Delivery Method Room Air Weight: 178 lb 9.191 oz Body Mass Index (BMI) 28.8 Finger Stick Blood Glucose 99 Intake and Output for Last 24 Hours 06/06/18 06/07/18 06/08/18 23:59 23:59 23:59 Intake Total 1547 / 1547 1621 / 1621 Output Total 675 / 675 1125 / 1125 Balance 872 / 872 496 / 496 General: Alert, Oriented x3, Cooperative, No apparent distress HEENT: Atraumatic, PERRLA, EOMI, Normocephalic Oral: Moist Mucosa Neck: Supple, No JVD, Negative Carotid Bruits Lungs: Clear to auscultation, Normal air movement, No rhonchi, No wheeze, No rales Cardiovascular: Regular rate, Regular Rhythm, Normal S1, Normal S2, No murmurs Abdomen: Bowel Sounds Present, Soft, Non Tender, Non-Distended, No Hepato-splenomegaly Extremities: - - left knee swollen, tender, fluctuant with an effusion. severe tenderness on attempts to move the knee. Skin: No rashes, No breakdown Musculoskeletal: No Tenderness to Palpation of Joints or Extremities, - - as under extremities Lymphatic: No Cervical, Supraclavicular, or Inguinal Adenopathy Neurological: Cranial nerves II-XII grossly intact, Neuro grossly intact, - - decreased power of 4/5 in LLE due to pain Psych/Mental Status: Normal Affect, Appropriate, Alert and oriented to time, place, person, mood and affect Microbiology Past 72 Hours 06/07/18 17:26 Fluid - Synovial (joint) Gram Stain - Final 06/07/18 17:26 Fluid - Synovial (joint) Body Fluid Culture - Preliminary Staphylococcus aureus 06/06/18 22:15 Blood Culture (Wb) - Venous Blood Culture - Final Staphylococcus aureus 06/06/18 22:15 Blood Culture (Wb) - Venous Blood Culture - Final Staphylococcus aureus Laboratory Results 06/06/18 22:15: C-React Prot Ext Range 174.00 H 06/07/18 17:05: ESR 70 H 06/07/18 17:26: Fluid Source Cancelled, Fluid Color Cancelled, Fluid Appearance Cancelled, Fluid WBC Cancelled, Fluid RBC Cancelled, Fluid Tot Cell Count Cancelled, Fld Polynuclear WBCs # Cancelled, Fld Polynuclear WBCs % Cancelled, Fluid Mononuclear WBCs Cancelled, Fld Mononuclear WBCs % Cancelled, Fluid Neutrophils Cancelled, Fluid Lymphocytes Cancelled, Fluid Monocytes Cancelled, Fluid Plasma Cells Cancelled, Fluid Macrophages Cancelled, Fld Mesothelial Cells Cancelled, Fluid Other Cells Cancelled, Fl Pathologist Comment Cancelled, Fluid Comment 2 Cancelled, Synovial Source LEFT KNEE, Synovial Color Yellow, Synovial Appearance Cloudy, Synovial Viscosity Sl. Viscous, Synovial WBC 13.3720 H, Synovial RBC 0.009 H, Synovial Tot Cell Ct 13.5980 H, Synov Polynuclear WBCs 9.053, Synovial Neutrophils 72 H, Synovial Lymphocytes 8, Synovial Monocytes 20, Synovial Polynuclear % 75.1, Synovial Mononuclear % 24.9, Synovial Path Comment May follow 06/08/18 05:00: WBC 6.1, RBC 3.40 L, Hgb 9.4 L, Hct 28.0 L, MCV 82.4, MCH 27.6, MCHC 33.6, RDW 14.8 H, RDW Differential 45.1 H, Plt Count 160, MPV 10.6, Immature Gran % (Auto) 0.300, Neut % (Auto) 88.1 H, Lymph % (Auto) 6.4 L, [place] % (Auto) 4.8, Eos % (Auto) 0.2, Baso % (Auto) 0.2, Absolute Neuts (auto) 5.4, Absolute Lymphs (auto) 0.39 L, Total Counted Not Reportable, Differential Comment 06/08/18 05:00: Sodium 131 L, Potassium 3.6, Chloride 100, Carbon Dioxide 23.0, Anion Gap 8, BUN 18, Creatinine 1.02, Estim Creat Clear Calc 49.52, Est GFR (MDRD) Af Amer 90, Est GFR (MDRD) Non-Af 74, BUN/Creatinine Ratio 17.6, Glucose 103, Calcium 8.2 L, TSH 1.65 06/08/18 05:00: PT 14.7, INR 1.2, APTT 39.5 H 06/08/18 08:40: Serum Osmolality 268 L Current Medications Acetaminophen (Tylenol) 650 mg PO Q6H PRN PRN PRN Reason: Mild Pain (1-3)/Temp > 100.7 F Last Admin: 06/07/18 20:13 Dose: 650 mg Aspirin (Ecotrin) 81 mg PO DAILY [facility] Last Admin: 06/08/18 09:53 Dose: 81 mg Clopidogrel Bisulfate (Plavix) 75 mg PO DAILY [facility] Last Admin: 06/08/18 09:53 Dose: 75 mg Cyanocobalamin (Vitamin B12) 1,000 mcg PO BID [facility] Last Admin: 06/08/18 09:53 Dose: 1,000 mcg [facility]ous [facility] ([facility] Last Admin: 06/08/18 09:53 Dose: 325 mg Finasteride (Proscar) 5 mg PO DAILY [facility] Last Admin: 06/08/18 09:53 Dose: 5 mg Heparin Sodium (Porcine) (Heparin Na) 5,000 unit SC Q8 [facility] Last Admin: 06/08/18 05:52 Dose: Not Given Hydroxychloroquine [facility] ([facility]) [facility] Last Admin: 06/08/18 09:53 Dose: 200 mg Sodium Chloride () 250 mls @ 15 mls/hr IV .[id number] PRN PRN Reason: SALINE FLUSH Cefazolin Sodium 2 gm/ Sodium (Chloride) 110 mls @ 150 mls/hr IV Q8 [facility] Last Admin: 06/08/18 05:52 Dose: 150 mls/hr Sodium Chloride () 1,000 mls @ 100 mls/hr IV .Q10H [facility] Levothyroxine Sodium (Synthroid) 112 mcg PO DAILY@0600 [facility] Last Admin: 06/08/18 05:52 Dose: 112 mcg Pravastatin Sodium (Pravachol) 80 mg PO QHS [facility] Last Admin: 06/07/18 21:34 Dose: 80 mg Sodium Chloride () 5 - 15 ml IV UD PRN PRN Reason: SALINE FLUSH Last Admin: 06/07/18 21:40 Dose: 10 ml Tramadol HCl (Ultram) 50 mg PO Q6H PRN PRN PRN Reason: MODERATE PAIN (4-5/10) Last Admin: 06/08/18 09:59 Dose: 50 mg Medical Necessity - Tobacco Use Smoking Status: Never smoker Tobacco Use: Non-smoker Assessment/Plan All Active Problems (Last Updated 06/01/18 @ 10:07 by Anupama Farnsworth) Positive blood cultures (Acute) Dehydration (Resolved) Diarrhea (Resolved) Generalized weakness (Resolved) Joint pain (Resolved) 1. Acute MSSA bacteremia due to septic arthritis of left knee prosthesis 2 sets of blood cultures grew MSSA still has left knee pain;; had mild fever at 99.3F yesterday on IV cefazolin 2D echo was negative for any vegetations; per discussion with Dr Vicente (ID), will recommend a CAMILLE. Cardiology on board for knee washout by orthopedic surgery tomorrow morning. 2. Left knee prosthesis septic arthritis: as under 1. 3. CAD s/p stents: had recent stent placed in LAD in [facility] o/a of severe calcification in LAD, after initial cardiac cath was done here on 05/31/18. On aspirin and Plavix. Orthopedics had wanted aspirin and Plavix held but per discussion with Dr. Victoria, patient to be kept on aspirin and Plavix on account of risk of in-stent thrombosis. cardiology on board; cleared patient for surgery; patient at risk for bleeding in light of patient being on aspirin and plavix. 4. Hyperlipidemia: on statin 5. Hypertension: BP meds held o/a of patient's BP running low yesterday. BP now in 130s systolic. will continue to monitor DVT prophylaxis: heparin Code Visit Inpatient E&M: [id number] [facility] L[facility]
[2018-06-08 12:21] LABS: Pathologist Comment Reviewed
--- NOTE | 2018-06-08 12:36 | PN_ITS ---
Patient Problems: Active and Suspected Problems (Last Updated 06/01/18 @ 10:07 by Anupama Farnsworth) Positive blood cultures (Acute) Subjective: Patient seen and examined. He still has pain in his left knee but it is better. He had aspiration of the knee done by orthopedics yesterday and sample sent for cultures. Both sets of blood cultures grew MRSA. 2D echo done was negative for any vegetation. Denies any fever chills, palpitations or dizziness, chest pain, abdominal pain, diarrhea or vomiting. He had a mild fever in the early hours of this morning at 99.3 Fahrenheit. Orthopedics on board and he is due to have result of the knee tomorrow. Labs and vitals reviewed Vitals/I&O's: Vital Signs Temp Pulse Resp BP Pulse Ox 98.8 F 100 18 134/69 H 96 06/08/18 10:06 06/08/18 10:06 06/08/18 10:06 06/08/18 10:06 06/08/18 10:06 Oxygen Delivery Method Room Air Weight: 178 lb 9.191 oz Body Mass Index (BMI) 28.8 Finger Stick Blood Glucose 99 Intake and Output for Last 24 Hours 06/06/18 06/07/18 06/08/18 23:59 23:59 23:59 Intake Total 1547 / 1547 1621 / 1621 Output Total 675 / 675 1125 / 1125 Balance 872 / 872 496 / 496 General: Alert, Oriented x3, Cooperative, No apparent distress HEENT: Atraumatic, PERRLA, EOMI, Normocephalic Oral: Moist Mucosa Neck: Supple, No JVD, Negative Carotid Bruits Lungs: Clear to auscultation, Normal air movement, No rhonchi, No wheeze, No rales Cardiovascular: Regular rate, Regular Rhythm, Normal S1, Normal S2, No murmurs Abdomen: Bowel Sounds Present, Soft, Non Tender, Non-Distended, No Hepato- splenomegaly Extremities: - - left knee swollen, tender, fluctuant with an effusion. severe tenderness on attempts to move the knee. Skin: No rashes, No breakdown Musculoskeletal: No Tenderness to Palpation of Joints or Extremities, - - as under extremities Lymphatic: No Cervical, Supraclavicular, or Inguinal Adenopathy Neurological: Cranial nerves II-XII grossly intact, Neuro grossly intact, - - decreased power of 4/5 in LLE due to pain Psych/Mental Status: Normal Affect, Appropriate, Alert and oriented to time, place, person, mood and affect Microbiology Past 72 Hours 06/07/18 17:26 Fluid - Synovial (joint) Gram Stain - Final 06/07/18 17:26 Fluid - Synovial (joint) Body Fluid Culture - Preliminary Staphylococcus aureus 06/06/18 22:15 Blood Culture (Wb) - Venous Blood Culture - Final Staphylococcus aureus 06/06/18 22:15 Blood Culture (Wb) - Venous Blood Culture - Final Staphylococcus aureus Laboratory Results 06/06/18 22:15: C-React Prot Ext Range 174.00 H 06/07/18 17:05: ESR 70 H 06/07/18 17:26: Fluid Source Cancelled, Fluid Color Cancelled, Fluid Appearance Cancelled, Fluid WBC Cancelled, Fluid RBC Cancelled, Fluid Tot Cell Count Cancelled, Fld Polynuclear WBCs # Cancelled, Fld Polynuclear WBCs % Cancelled, Fluid Mononuclear WBCs Cancelled, Fld Mononuclear WBCs % Cancelled, Fluid Neutrophils Cancelled, Fluid Lymphocytes Cancelled, Fluid Monocytes Cancelled, Fluid Plasma Cells Cancelled, Fluid Macrophages Cancelled, Fld Mesothelial Cells Cancelled, Fluid Other Cells Cancelled, Fl Pathologist Comment Cancelled, Fluid Comment 2 Cancelled, Synovial Source LEFT KNEE, Synovial Color Yellow, Synovial Appearance Cloudy, Synovial Viscosity Sl. Viscous, Synovial WBC 13.3720 H, Synovial RBC 0.009 H, Synovial Tot Cell Ct 13.5980 H, Synov Polynuclear WBCs 9.053, Synovial Neutrophils 72 H, Synovial Lymphocytes 8, Synovial Monocytes 20, Synovial Polynuclear % 75.1, Synovial Mononuclear % 24.9, Synovial Path Comment May follow 06/08/18 05:00: WBC 6.1, RBC 3.40 L, Hgb 9.4 L, Hct 28.0 L, MCV 82.4, MCH 27.6, MCHC 33.6, RDW 14.8 H, RDW Differential 45.1 H, Plt Count 160, MPV 10.6, Immature Gran % (Auto) 0.300, Neut % (Auto) 88.1 H, Lymph % (Auto) 6.4 L, [place] % (Auto) 4.8, Eos % (Auto) 0.2, Baso % (Auto) 0.2, Absolute Neuts (auto) 5.4, Absolute Lymphs (auto) 0.39 L, Total Counted Not Reportable, Differential Comment 06/08/18 05:00: Sodium 131 L, Potassium 3.6, Chloride 100, Carbon Dioxide 23.0, Anion Gap 8, BUN 18, Creatinine 1.02, Estim Creat Clear Calc 49.52, Est GFR (MDRD) Af Amer 90, Est GFR (MDRD) Non-Af 74, BUN/Creatinine Ratio 17.6, Glucose 103, Calcium 8.2 L, TSH 1.65 06/08/18 05:00: PT 14.7, INR 1.2, APTT 39.5 H 06/08/18 08:40: Serum Osmolality 268 L Current Medications Acetaminophen (Tylenol) 650 mg PO Q6H PRN PRN PRN Reason: Mild Pain (1-3)/Temp > 100.7 F Last Admin: 06/07/18 20:13 Dose: 650 mg Aspirin (Ecotrin) 81 mg PO DAILY [facility] Last Admin: 06/08/18 09:53 Dose: 81 mg Clopidogrel Bisulfate (Plavix) 75 mg PO DAILY [facility] Last Admin: 06/08/18 09:53 Dose: 75 mg Cyanocobalamin (Vitamin B12) 1,000 mcg PO BID [facility] Last Admin: 06/08/18 09:53 Dose: 1,000 mcg Ferrous Sulf[facility]) [facility] Last Admin: 06/08/18 09:53 Dose: 325 mg Finasteride (Proscar) 5 mg PO DAILY [facility] Last Admin: 06/08/18 09:53 Dose: 5 mg Heparin Sodium (Porcine) (Heparin Na) 5,000 unit SC Q8 [facility] Last Admin: 06/08/18 05:52 Dose: Not Given Hydroxychloroquine Sulfate ([facility]aqu[facility]il) [facility] Last Admin: 06/08/18 09:53 Dose: 200 mg Sodium Chloride () 250 mls @ 15 mls/hr IV .[id number] PRN PRN Reason: SALINE FLUSH Cefazolin Sodium 2 gm/ Sodium (Chloride) 110 mls @ 150 mls/hr IV Q8 [facility] Last Admin: 06/08/18 05:52 Dose: 150 mls/hr Sodium Chloride () 1,000 mls @ 100 mls/hr IV .Q10H [facility] Levothyroxine Sodium (Synthroid) 112 mcg PO DAILY@0600 [facility] Last Admin: 06/08/18 05:52 Dose: 112 mcg Pravastatin Sodium (Pravachol) 80 mg PO QHS [facility] Last Admin: 06/07/18 21:34 Dose: 80 mg Sodium Chloride () 5 - 15 ml IV UD PRN PRN Reason: SALINE FLUSH Last Admin: 06/07/18 21:40 Dose: 10 ml Tramadol HCl (Ultram) 50 mg PO Q6H PRN PRN PRN Reason: MODERATE PAIN (4-5/10) Last Admin: 06/08/18 09:59 Dose: 50 mg Medical Necessity - Tobacco Use Smoking Status: Never smoker Tobacco Use: Non-smoker Assessment/Plan All Active Problems (Last Updated 06/01/18 @ 10:07 by Anupama Farnsworth) Positive blood cultures (Acute) Dehydration (Resolved) Diarrhea (Resolved) Generalized weakness (Resolved) Joint pain (Resolved) 1. Acute MSSA bacteremia due to septic arthritis of left knee prosthesis * 2 sets of blood cultures grew MSSA * still has left knee pain;; had mild fever at 99.3F yesterday * on IV cefazolin * 2D echo was negative for any vegetations; per discussion with Dr Vicente (ID), will recommend a CAMILLE. Cardiology on board * for knee washout by orthopedic surgery tomorrow morning. * * 2. Left knee prosthesis septic arthritis: as under 1. 3. CAD s/p stents: * had recent stent placed in LAD in [facility] o/a of severe calcification in LAD, after initial cardiac cath was done here on 05/31/18. * On aspirin and Plavix. Orthopedics had wanted aspirin and Plavix held but per discussion with Dr. Victoria, patient to be kept on aspirin and Plavix on account of risk of in-stent thrombosis. * cardiology on board; cleared patient for surgery; patient at risk for bleeding in light of patient being on aspirin and plavix. * 4. Hyperlipidemia: on statin 5. Hypertension: BP meds held o/a of patient's BP running low yesterday. BP now in 130s systolic. will continue to monitor DVT prophylaxis: heparin Code Visit Inpatient E&M: [id number] [place] [id number]
[2018-06-08 13:17] VITALS: BP 149/78; PULSE 91; RESP 18; TEMP 37; O2SAT 97
[2018-06-08] MEDS: Acetaminophen 325 MG Tablet 650 MG PO ×2 (13:23→20:31)
[2018-06-08] MEDS: 0.9% Normal Saline 1,000 ML 100 ML IV (13:24)
[2018-06-08] MEDS: Heparin Injection (Vial) 5,000 UNIT/ML VIAL 5000 UNIT SC ×2 (13:25→22:35)
[2018-06-08 17:27] VITALS: BP 144/74; PULSE 78; RESP 18; TEMP 36.8; O2SAT 97
[2018-06-08 20:07] VITALS: BP 151/79; PULSE 89; RESP 18; TEMP 37.7; O2SAT 99
[2018-06-08 20:35] VITALS: PULSE 89; RESP 18; O2SAT 99
[2018-06-08] MEDS: Pravastatin 80 MG Tablet PO (22:34)
[2018-06-09] VITALS (24 sets, daily range): BP systolic 98–169; BP diastolic 62–88; PULSE 80–116; RESP 16–18; TEMP 36.9–38.5; O2SAT 94–116; BMI 28.8
[2018-06-09] MEDS: 0.9% Normal Saline 1,000 ML 100 ML IV ×2 (01:11→18:47)
[2018-06-09] MEDS: Metoprolol Tartrate 25 MG Tablet 12.5 MG PO (02:34)
[2018-06-09] MEDS: Ramipril 10 MG Capsule 20 MG PO (02:34)
[2018-06-09] MEDS: Acetaminophen 325 MG Tablet 650 MG PO ×2 (02:35→20:41)
[2018-06-09] MEDS: Tamsulosin HCl 0.4 MG Capsule PO ×2 (02:35→18:29)
[2018-06-09] MEDS: Levothyroxine 112 MCG Tablet PO (05:43)
[2018-06-09] MEDS: Cefazolin 2 GM in 0.9% Normal Saline 100 ML IV ×2 (05:43→21:43)
[2018-06-09] MEDS: traMADol 50 MG Tablet PO ×3 (05:49→22:53)
[2018-06-09 06:22] LABS: Absolute Neutrophil Count 3.8 X10^3/uL (2.0-7.7); Basophil# 0.01 X10^3/uL; Basophil% 0.2 % (0-1); Eosinophil# 0.08 X10^3/uL; Eosinophils% 1.7 % (0-5); Hematocrit 23.4 % (40-54); Lymphocyte % 8.7 % (19-41); Mean Corp Hgb Conc 34.2 g/gl (32-36); Mean Corpuscular Hgb 27.7 pg (27.0-32.0); Mean Platelet Vol. 10.8 fl (6.2-12.0); Monocyte# 0.32 X10^3/uL; Monocyte% 6.9 % (0-10); Neutrophil % 82.3 % (47-70); Platelet Count 165 K/mm3 (150-450); RBC Distribution Width CV 14.8 % (11.6-14.6); RBC Distribution Width SD 44.2 fl (35.1-43.9); Red Blood Count 2.89 M/mm3 (4.6-6.2); White Blood Count 4.6 K/mm3 (4.4-11.0)
[2018-06-09 06:23] LABS: Differential Indicated SCAN CRITERIA MET; POSITIVE COUNT NO; POSITIVE DIFFERENTIAL YES; POSITIVE MORPHOLOGY NO
[2018-06-09 06:27] LABS: Anion Gap 4 (5-15); BUN 14 mg/dL (7-18); Calcium,Total 7.4 mg/dL (8.5-10.1); Chloride 104 mmol/L (98-107); Creatinine, Serum 0.82 mg/dL (0.70-1.30); EST Glomerular Filtration Rate 95 mL/min (>60); Est Glom Filt Rate - Afr Amer 115 mL/min (>60); Glucose 93 mg/dL (74-106); Potassium 3.3 mmol/L (3.5-5.1); Sodium Level 131 mmol/L (136-145)
--- NOTE | 2018-06-09 07:22 | NURSING ---
Called PACU and gave handoff report to nurse.
--- NOTE | 2018-06-09 09:55 | RAD_ITS ---
STUDY: X-RAY - LEFT KNEE REASON FOR EXAM: Male, 83 years old. Postoperative imaging for incision and drainage. TECHNIQUE: AP and lateral view(s) of the knee. COMPARISON: Comparison is made with prior radiograph dated June 07, 2018. FINDINGS: The patient is status post total knee replacement. There is good alignment. The patient is status post incision and drainage with the postoperative air is seen in the anterior soft tissues. RAD/Knee 1 or 2 Views IMPRESSION: Status post incision and drainage with postoperative soft tissue changes. Electronically Signed: Fox Medeiros, at 13:00 EDT , Service support ,
--- NOTE | 2018-06-09 09:58 | PCM.OPRPT ---
Report of Operation Date of Procedure: 06/09/18 Pre-Operative Diagnosis: Acute periprosthetic left total knee infection Post-Operative Diagnosis: Acute periprosthetic left total knee infection Surgery/Procedure Performed:: Irrigation debridement with polyethylene exchange left knee Description of Surgical Findings:: Stable knee. Complete synovectomy performed. irrigation flume layer: Tim David Type of Anesthesia:: General Anesthesiologist: Jesus Harrell Special Medications: Patient receiving cefazolin on the floor. 1 g of vancomycin was placed in the wound. 2 g of TXA were lavaged in the wound at the end the case. Specimen's removed: 3 separate specimens were sent to micrology. Drains: lateral suprapatellar Estimated Blood Loss (mL): 100 Fluids Replaced: 1500 ml including crystalloid and prbcs Description of Procedure: 83 yo m history of L TKA in 02/2018 presents with acute MSSA infection after multiple cardiac catheterizations. Reviewed options were discussed the patient. Based on acuity of the symptoms and organism irrigation debridement with polyethylene exchange is recommended. Risks and benefits of the procedure were discussed with the patient including but not limited to blood loss, DVTs, PEs, neurovascular damage, infection, general risk of anesthesia including loss of life. Demonstrated understanding and was able to sign informed consent. On the date of procedure patient'sL lower extremity was marked in the preoperative area. The patient was then taken back to the operating room where the patient was placed on the table in the supine position. All bony prominences were identified a well-padded. Anesthesia assumed control of the C-spine and airway and remained controlled throughout the remainder of the procedure. A tourniquet was placed on the operative thigh and the leg was prepped in a sterile fashion. The surgeon then scrubbed at this time .Upon reentering the room left lower extremity was draped in a standard orthopedic fashion. A timeout was then called and everyone agreed upon the side, the site, the procedure to be performed, patient's identity and antibiotics given. A midline skin incision was made and sharp dissection was taken down through skin subcutaneous tissue and fat. Appropriate flaps were elevated medially and laterally. His arthrotomy was identified and the standard medial parapatellar incision was made and the patella was subluxed laterally. The standard deep MCL release was done. At this point an aggressive synovectomy commenced. Our attention was first turned towards the subpatellar pouch and all suspicious synovium and tissues were debrided. We then directed our attention towards medial lateral gutters were these tissues were aggressively debrided. Knee was then flexed up the polyethylene was removed. Once polyethylene was removed we did the remainder of the synovium in the medial and lateral gutters and along the lateral structures and MCL. We then debrided the posterior knee. Knee was flexed up and culture was taken from the femoral notch. And also there was a membrane beneath the tibial baseplate that was removed and sent for culture. He had completed our synovectomy and were happy with the joint. We then used a chlorahexadine Irrisept lavage was used to lavage the joint and the metal implants. 6 L of normal saline were then irrigated throughout the wound with low-pressure lavage and the wound was once again explored. All remaining tissue that was suspicious was seen in the wound was once again irrigated with normal saline. 11 mm ps polyethylene was then opened and put back into place after appropriate trialing. Tourniquet was let down and hemostasis was obtained as well as possible. Lateral drain was placed in 2 g of vancomycin powder were placed in the wound/joint. Once the final components were placed the wound was copiously irrigated with normal saline solution. The wound was closed in a layer viramontes fashion using #1 vicryl interrupted sutures for the arthrotomy, 2-0 interrupted Vicryl for the subcuticular layer and radha for final skin closure. A sterile compressive dressing was then placed. The patient was then awakened from anesthesia, transferred to the [facility] and transferred to the PACU for recovery. Post op plan abx per ID, wbat, activity as tolerated. pt on aspirin and plavix this should be sufficient for dvt ppx upon dc. would continue heparin while admitted to hospital. - Complications none - Admit VTE Documentation VTE Present on Admission: No VTE Mechan Device Prophylaxis: SCD's, Thigh High DEBORAH Hose VTE Pharm Prophylaxis ordered?: Yes
--- NOTE | 2018-06-09 10:17 | PCM.PN.ID ---
Patient Problems: Active and Suspected Problems (Last Updated 06/01/18 @ 10:07 by Anupama Farnsworth) Positive blood cultures (Acute) Subjective: Patient was taken to surgery for surgical debridement of his prosthetic knee. Patient is currently on Ancef 2 g IV every 8 hours for MSSA bacteremia. I was not able to see the patient because the patient went to the operating room. His laboratory studies and microbiological data reviewed - Physical Exam Vital Signs Temp Pulse Resp BP Pulse Ox 99 F 85 16 167/87 H 98 06/09/18 09:27 06/09/18 09:27 06/09/18 09:27 06/09/18 09:27 06/09/18 09:27 Oxygen Flow Rate (L/min) 98 Oxygen Delivery Method Room Air Weight: 81 kg Body Mass Index (BMI) 28.8 Finger Stick Blood Glucose 99 Intake and Output for Last 24 Hours 06/07/18 06/08/18 06/09/18 23:59 23:59 23:59 Intake Total 1547 / 1547 3547 / 3547 784 / 784 Output Total 675 / 675 1925 / 1925 500 / 500 Balance 872 / 872 1622 / 1622 284 / 284 Microbiology Past 72 Hours 06/07/18 17:26 Gram Stain - Final Fluid - Synovial (joint) Body Fluid Culture - Final Staphylococcus aureus 06/06/18 22:15 Blood Culture - Final Blood Culture (Wb) - Venous Staphylococcus aureus 06/06/18 22:15 Blood Culture - Final Blood Culture (Wb) - Venous Staphylococcus aureus Laboratory Tests Past 24 Hrs 06/07/18 06/09/18 06/09/18 17:26 05:15 05:15 WBC 4.6 RBC 2.89 L Hgb 8.0 L Hct 23.4 L MCV 81.0 MCH 27.7 MCHC 34.2 RDW 14.8 H RDW Differential 44.2 H Plt Count 165 MPV 10.8 Immature Gran % (Auto) 0.200 Neut % (Auto) 82.3 H Lymph % (Auto) 8.7 L [place] % (Auto) 6.9 Eos % (Auto) 1.7 Baso % (Auto) 0.2 Absolute Neuts (auto) 3.8 Absolute Lymphs (auto) 0.40 L Total Counted Not Reportable Differential Comment Sodium 131 L Potassium 3.3 L Chloride 104 Carbon Dioxide 23.0 Anion Gap 4 L BUN 14 Creatinine 0.82 Estim Creat Clear Calc 61.60 Est GFR (MDRD) Af Amer 115 Est GFR (MDRD) Non-Af 95 BUN/Creatinine Ratio 17.0 Glucose 93 Calcium 7.4 L Synovial Path Comment Reviewed Blood Type Antibody Screen Crossmatch 06/09/18 06/09/18 08:02 08:02 WBC RBC Hgb Hct MCV MCH MCHC RDW RDW Differential Plt Count MPV Immature Gran % (Auto) Neut % (Auto) Lymph % (Auto) [place] % (Auto) Eos % (Auto) Baso % (Auto) Absolute Neuts (auto) Absolute Lymphs (auto) Total Counted Differential Comment Sodium Potassium Chloride Carbon Dioxide Anion Gap BUN Creatinine Estim Creat Clear Calc Est GFR (MDRD) Af Amer Est GFR (MDRD) Non-Af BUN/Creatinine Ratio Glucose Calcium Synovial Path Comment Blood Type B POSITIVE Antibody Screen NEGATIVE Crossmatch See Detail Medical Necessity - Tobacco Use Smoking Status: Never smoker Tobacco Use: Non-smoker Route of nutrition/ use of supplements: [] Nutritional Intake: [] IV Site: [] Amaro Catheter: [] - Assessment/Plan MSSA bacteremia with a hematogenous seeding of his prosthetic knee. Status post surgical washout with an exchange of polyethylene liner. At this point we will continue Ancef 2 g IV every 8 hours, patient may benefit from rifampin along with the Ancef. I will repeat his blood cultures today and also obtain a complete metabolic panel. I will follow the patient clinically in the postop period.
[2018-06-09] MEDS: Vancomycin IV 1,000 MG/20 ML Vial 1000 MG OPERA.SITE (11:06)
--- NOTE | 2018-06-09 12:00 | EKG12_ITS ---
Test Reason : POST OP Blood Pressure : / mmHG Vent. Rate : 091 BPM Atrial Rate : 091 BPM P-R Int : 234 ms QRS Dur : 092 ms QT Int : 374 ms P-R-T Axes : 074 026 053 degrees QTc Int : 460 ms Sinus rhythm with 1st degree A-V block Low voltage QRS Septal infarct , age undetermined Abnormal ECG When compared with ECG of 06-JUN-2018 22:09, No significant change was found Confirmed by MARTY DUNN, DENICE ([id number]), photo editor RODOLFO CRANE ([id number]) on 06/14/2018 1:34:46 PM Referred By: Confirmed By:DENICE FERGUSON MD
[2018-06-09 12:34] LABS: Hematocrit 26.4 % (40-54); Hemoglobin 8.9 g/dl (13.0-16.5); Mean Corp Hgb Conc 33.7 g/gl (32-36); Mean Corpuscular Hgb 27.5 pg (27.0-32.0); Mean Corpuscular Volume 81.5 fL (80-94); Mean Platelet Vol. 9.7 fl (6.2-12.0); Platelet Count 174 K/mm3 (150-450); RBC Distribution Width CV 14.6 % (11.6-14.6); RBC Distribution Width SD 43.8 fl (35.1-43.9); Red Blood Count 3.24 M/mm3 (4.6-6.2); Scan Indicated on CBC? Y/N NO; White Blood Count 5.2 K/mm3 (4.4-11.0)
[2018-06-09 13:20] LABS: ALB/GLOB Ratio 0.7 RATIO (0.9-2.4); AST(SGOT) 32 U/L (15-37); Alanine Aminotransfer ALT/SGPT 16 U/L (16-61); Albumin, Serum 2.5 g/dL (3.2-5.0); Alkaline Phosphatase 104 U/L (45-117); Anion Gap 9 (5-15); BUN 13 mg/dL (7-18); BUN/Creat Ratio 14.9 RATIO (10-20); Calcium,Total 7.6 mg/dL (8.5-10.1); Chloride 103 mmol/L (98-107); Creatinine, Serum 0.87 mg/dL (0.70-1.30); EST Glomerular Filtration Rate 89 mL/min (>60); Est Glom Filt Rate - Afr Amer 107 mL/min (>60); Estimated Creatinine Clearance 58.06 ml/min; Globulin 3.8 g/dL (2.2-4.2); Glucose 92 mg/dL (74-106); Potassium 3.6 mmol/L (3.5-5.1); Protein, Total 6.3 g/dL (6.4-8.2); Sodium Level 133 mmol/L (136-145)
--- NOTE | 2018-06-09 14:34 | PCM.PN.HOSP ---
Patient Problems: Active and Suspected Problems (Last Updated 06/01/18 @ 10:07 by Anupama Farnsworth) Positive blood cultures (Acute) Subjective: Patient seen and examined. 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 Patient was seen after he had surgery. He complained of severe pain at the site of surgery. He was also a bit confused, which was likely an effect of anesthesia, as his said he always had confusion when he received anesthesia. Hb was 8 this morning, so anesthesia ordered 2 units of PRBC; he received one prior to surgery, and was receiving the second unit afterwards. Review of systems otherwise negative. Vitals/I&O's: Vital Signs Temp Pulse Resp BP Pulse Ox 98.8 F 94 16 169/84 H 100 06/09/18 13:45 06/09/18 13:45 06/09/18 13:45 06/09/18 13:45 06/09/18 13:45 Oxygen Flow Rate (L/min) 3 Oxygen Delivery Method Nasal Cannula Weight: 178 lb 9.191 oz Body Mass Index (BMI) 28.8 Finger Stick Blood Glucose 99 Intake and Output for Last 24 Hours 06/07/18 06/08/18 06/09/18 23:59 23:59 23:59 Intake Total 1547 / 1547 3547 / 3547 05439 / 25741 Output Total 675 / 675 1925 / 1925 535 / 535 Balance 872 / 872 1622 / 1622 04271 / 59853 General: Alert, lethargic, Cooperative, in moderate distress from pain HEENT: Atraumatic, PERRLA, EOMI, Normocephalic Oral: Moist Mucosa Neck: Supple, No JVD, Negative Carotid Bruits Lungs: Clear to auscultation, Normal air movement, No rhonchi, No wheeze, No rales Cardiovascular: Regular rate, Regular Rhythm, Normal S1, Normal S2, No murmurs Abdomen: Bowel Sounds Present, Soft, Non Tender, Non-Distended, No Hepato-splenomegaly Extremities: - - lefty knee wrapped in bandage. Skin: No rashes, No breakdown Musculoskeletal: No Tenderness to Palpation of Joints or Extremities, - - as under extremities Lymphatic: No Cervical, Supraclavicular, or Inguinal Adenopathy Neurological: Cranial nerves II-XII grossly intact, Neuro grossly intact, - - decreased power of 4/5 in LLE due to pain Psych/Mental Status: Normal Affect, lethargic. Microbiology Past 72 Hours 06/07/18 17:26 Fluid - Synovial (joint) Gram Stain - Final 06/07/18 17:26 Fluid - Synovial (joint) Body Fluid Culture - Final Staphylococcus aureus 06/06/18 22:15 Blood Culture (Wb) - Venous Blood Culture - Final Staphylococcus aureus 06/06/18 22:15 Blood Culture (Wb) - Venous Blood Culture - Final Staphylococcus aureus Laboratory Results 06/09/18 05:15: WBC 4.6, RBC 2.89 L, Hgb 8.0 L, Hct 23.4 L, MCV 81.0, MCH 27.7, MCHC 34.2, RDW 14.8 H, RDW Differential 44.2 H, Plt Count 165, MPV 10.8, Immature Gran % (Auto) 0.200, Neut % (Auto) 82.3 H, Lymph % (Auto) 8.7 L, [place] % (Auto) 6.9, Eos % (Auto) 1.7, Baso % (Auto) 0.2, Absolute Neuts (auto) 3.8, Absolute Lymphs (auto) 0.40 L, Total Counted Not Reportable, Differential Comment 06/09/18 05:15: Sodium 131 L, Potassium 3.3 L, Chloride 104, Carbon Dioxide 23.0, Anion Gap 4 L, BUN 14, Creatinine 0.82, Estim Creat Clear Calc 61.60, Est GFR (MDRD) Af Amer 115, Est GFR (MDRD) Non-Af 95, BUN/Creatinine Ratio 17.0, Glucose 93, Calcium 7.4 L 06/09/18 08:02: Blood Type B POSITIVE, Antibody Screen NEGATIVE 06/09/18 08:02: Crossmatch See Detail 06/09/18 12:15: Sodium 133 L, Potassium 3.6, Chloride 103, Carbon Dioxide 21.0, Anion Gap 9, BUN 13, Creatinine 0.87, Estim Creat Clear Calc 58.06, Est GFR (MDRD) Af Amer 107, Est GFR (MDRD) Non-Af 89, BUN/Creatinine Ratio 14.9, Glucose 92, Calcium 7.6 L, Total Bilirubin 0.60, AST 32, ALT 16, Alkaline Phosphatase 104, Total Protein 6.3 L, Albumin 2.5 L, Globulin 3.8, Albumin/Globulin Ratio 0.7 L 06/09/18 12:15: WBC 5.2, RBC 3.24 L, Hgb 8.9 L, Hct 26.4 L, MCV 81.5, MCH 27.5, MCHC 33.7, RDW 14.6, RDW Differential 43.8, Plt Count 174, MPV 9.7 06/09/18 12:15: Troponin I < 0.015 Current Medications Acetaminophen (Tylenol) 650 mg PO Q6H PRN PRN PRN Reason: Mild Pain (1-3)/Temp > 100.7 F Last Admin: 06/09/18 02:35 Dose: 650 mg Aspirin (Ecotrin) 81 mg PO DAILY [facility] Last Admin: 06/08/18 09:53 Dose: 81 mg Clopidogrel Bisulfate (Plavix) 75 mg PO DAILY [facility] Last Admin: 06/08/18 09:53 Dose: 75 mg Cyanocobalamin (Vitamin B12) 1,000 mcg PO BID [facility] Last Admin: 06/08/18 22:35 Dose: 1,000 mcg Ferrous Sulf[facility] ([facility]ous Sulfate) [facility] Last Admin: 06/08/18 17:34 Dose: 325 mg Finasteride (Proscar) 5 mg PO DAILY [facility] Last Admin: 06/08/18 09:53 Dose: 5 mg Heparin Sodium (Porcine) (Heparin Na) 5,000 unit SC Q8 [facility] Last Admin: 06/09/18 05:43 Dose: Not Given Hydroxychloroquine Sulfate (Plaquenil) [facility] Last Admin: 06/08/18 17:34 Dose: 200 mg Sodium Chloride () 250 mls @ 15 mls/hr IV .[id number] PRN PRN Reason: SALINE FLUSH Cefazolin Sodium 2 gm/ Sodium (Chloride) 110 mls @ 150 mls/hr IV Q8 [facility] Last Admin: 06/09/18 05:43 Dose: 150 mls/hr Sodium Chloride () 1,000 mls @ 100 mls/hr IV .Q10H [facility] Last Admin: 06/09/18 01:11 Dose: 100 mls/hr Levothyroxine Sodium (Synthroid) 112 mcg PO DAILY@0600 [facility] Last Admin: 06/09/18 05:43 Dose: 112 mcg Metoprolol Tartrate (Lopressor (Beta Humberto)) 12.5 mg PO DAILY [facility] Last Admin: 06/09/18 02:34 Dose: 12.5 mg Morphine Sulfate () 2 - 4 mg IV Q2H PRN PRN PRN Reason: SEVERE PAIN (6-10/10) Morphine Sulfate () 2 - 4 mg IV Q2H PRN PRN PRN Reason: SEVERE PAIN (6-10/10) Nutritional Formula (Lactose Free) (Glucerna Shake) 120 ml PO TIDCM [facility] Pravastatin Sodium (Pravachol) 80 mg PO QHS [facility] Last Admin: 06/08/18 22:34 Dose: 80 mg Ramipril (Altace) 20 mg PO LUNCH [facility] Last Admin: 06/09/18 02:34 Dose: 20 mg Senna/Docusate Sodium (Senokot-S, Chante-Colace) 2 tablet PO BID [facility] Sodium Chloride () 5 - 15 ml IV UD PRN PRN Reason: SALINE FLUSH Last Admin: 06/07/18 21:40 Dose: 10 ml Tamsulosin HCl (Flomax) 0.4 mg PO DAILY@1730 [facility] Last Admin: 06/09/18 02:35 Dose: 0.4 mg Tramadol HCl (Ultram) 50 mg PO Q6H PRN PRN PRN Reason: MODERATE PAIN (4-5/10) Last Admin: 06/09/18 05:49 Dose: 50 mg Medical Necessity - Tobacco Use Smoking Status: Never smoker Tobacco Use: Non-smoker Assessment/Plan All Active Problems (Last Updated 06/01/18 @ 10:07 by Anupama Farnsworth) Positive blood cultures (Acute) Dehydration (Resolved) Diarrhea (Resolved) Generalized weakness (Resolved) Joint pain (Resolved) 1. Acute MSSA bacteremia due to septic arthritis of left knee prosthesis 2 sets of blood cultures grew MSSA still has left knee pain;; had mild fever at 99.3F yesterday on IV cefazolin 2D echo was negative for any vegetations; per discussion with Dr Vicente (ID), will recommend a CAMILLE. Cardiology on board s/p left knee washout and total synovectomy for CAMILLE as per cardiology schedule. 2. 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 1g of vancomycin placed in wound during surgery ID on board; to add on rifampin. blood cultures repeated today 3. CAD s/p stents: had recent stent placed in LAD in [facility] o/a of severe calcification in LAD, after initial cardiac cath was done here on 05/31/18. On aspirin and Plavix. Orthopedics had wanted aspirin and Plavix held but per discussion with Dr. Victoria, patient to be kept on aspirin and Plavix on account of risk of in-stent thrombosis. cardiology on board; cleared patient for surgery; patient at risk for bleeding in light of patient being on aspirin and plavix. 4. Hyponatremia: Stable. Done was 133 today. 5. Hypokalemia: Potassium is 2.3 today. Went up to 2.6 after replacement. Will monitor. 6. Hyperlipidemia: on statin 7. Hypertension: BP meds held o/a of patient's BP running low. BP now in 150s and 160s after surgery. Ramipril and metoporol resumed. DVT prophylaxis: heparin. Per orthopedics, aspirin and plavix will be enough for DVT prophylaxis after pateint is discharged. To continue with heparin whilst inpatient. Code Visit Inpatient E&M: 89204 Subs Hosp L3
--- NOTE | 2018-06-09 14:40 | PN_ITS ---
Patient Problems: Active and Suspected Problems (Last Updated 06/01/18 @ 10:07 by Anupama Farnsworth) Positive blood cultures (Acute) Subjective: Patient seen and examined. 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 Patient was seen after he had surgery. He complained of severe pain at the site of surgery. He was also a bit confused, which was likely an effect of anesthesia, as his said he always had confusion when he received anesthesia. Hb was 8 this morning, so anesthesia ordered 2 units of PRBC; he received one prior to surgery, and was receiving the second unit afterwards. Review of systems otherwise negative. Vitals/I&O's: Vital Signs Temp Pulse Resp BP Pulse Ox 98.8 F 94 16 169/84 H 100 06/09/18 13:45 06/09/18 13:45 06/09/18 13:45 06/09/18 13:45 06/09/18 13:45 Oxygen Flow Rate (L/min) 3 Oxygen Delivery Method Nasal Cannula Weight: 178 lb 9.191 oz Body Mass Index (BMI) 28.8 Finger Stick Blood Glucose 99 Intake and Output for Last 24 Hours 06/07/18 06/08/18 06/09/18 23:59 23:59 23:59 Intake Total 1547 / 1547 3547 / 3547 97294 / 01928 Output Total 675 / 675 1925 / 1925 535 / 535 Balance 872 / 872 1622 / 1622 [id number] / [id number] General: Alert, lethargic, Cooperative, in moderate distress from pain HEENT: Atraumatic, PERRLA, EOMI, Normocephalic Oral: Moist Mucosa Neck: Supple, No JVD, Negative Carotid Bruits Lungs: Clear to auscultation, Normal air movement, No rhonchi, No wheeze, No rales Cardiovascular: Regular rate, Regular Rhythm, Normal S1, Normal S2, No murmurs Abdomen: Bowel Sounds Present, Soft, Non Tender, Non-Distended, No Hepato-splen omegaly Extremities: - - lefty knee wrapped in bandage. Skin: No rashes, No breakdown Musculoskeletal: No Tenderness to Palpation of Joints or Extremities, - - as under extremities Lymphatic: No Cervical, Supraclavicular, or Inguinal Adenopathy Neurological: Cranial nerves II-XII grossly intact, Neuro grossly intact, - - decreased power of 4/5 in LLE due to pain Psych/Mental Status: Normal Affect, lethargic. Microbiology Past 72 Hours 06/07/18 17:26 Fluid - Synovial (joint) Gram Stain - Final 06/07/18 17:26 Fluid - Synovial (joint) Body Fluid Culture - Final Staphylococcus aureus 06/06/18 22:15 Blood Culture (Wb) - Venous Blood Culture - Final Staphylococcus aureus 06/06/18 22:15 Blood Culture (Wb) - Venous Blood Culture - Final Staphylococcus aureus Laboratory Results 06/09/18 05:15: WBC 4.6, RBC 2.89 L, Hgb 8.0 L, Hct 23.4 L, MCV 81.0, MCH 27.7, MCHC 34.2, RDW 14.8 H, RDW Differential 44.2 H, Plt Count 165, MPV 10.8, Immature Gran % (Auto) 0.200, Neut % (Auto) 82.3 H, Lymph % (Auto) 8.7 L, [place] % (Auto) 6.9, Eos % (Auto) 1.7, Baso % (Auto) 0.2, Absolute Neuts (auto) 3.8, Absolute Lymphs (auto) 0.40 L, Total Counted Not Reportable, Differential Comment 06/09/18 05:15: Sodium 131 L, Potassium 3.3 L, Chloride 104, Carbon Dioxide 23.0, Anion Gap 4 L, BUN 14, Creatinine 0.82, Estim Creat Clear Calc 61.60, Est GFR (MDRD) Af Amer 115, Est GFR (MDRD) Non-Af 95, BUN/Creatinine Ratio 17.0, Glucose 93, Calcium 7.4 L 06/09/18 08:02: Blood Type B POSITIVE, Antibody Screen NEGATIVE 06/09/18 08:02: Crossmatch See Detail 06/09/18 12:15: Sodium 133 L, Potassium 3.6, Chloride 103, Carbon Dioxide 21.0, Anion Gap 9, BUN 13, Creatinine 0.87, Estim Creat Clear Calc 58.06, Est GFR (MDRD) Af Amer 107, Est GFR (MDRD) Non-Af 89, BUN/Creatinine Ratio 14.9, Glucose 92, Calcium 7.6 L, Total Bilirubin 0.60, AST 32, ALT 16, Alkaline Phosphatase 104, Total Protein 6.3 L, Albumin 2.5 L, Globulin 3.8, Albumin/Globulin Ratio 0.7 L 06/09/18 12:15: WBC 5.2, RBC 3.24 L, Hgb 8.9 L, Hct 26.4 L, MCV 81.5, MCH 27.5, MCHC 33.7, RDW 14.6, RDW Differential 43.8, Plt Count 174, MPV 9.7 06/09/18 12:15: Troponin I < 0.015 Current Medications Acetaminophen (Tylenol) 650 mg PO Q6H PRN PRN PRN Reason: Mild Pain (1-3)/Temp > 100.7 F Last Admin: 06/09/18 02:35 Dose: 650 mg Aspirin (Ecotrin) 81 mg PO DAILY [facility] Last Admin: 06/08/18 09:53 Dose: 81 mg Clopidogrel Bisulfate (Plavix) 75 mg PO DAILY [facility] Last Admin: 06/08/18 09:53 Dose: 75 mg Cyanocobalamin (Vitamin B12) 1,000 mcg PO BID [facility] Last Admin: 06/08/18 22:35 Dose: 1,000 mcg [facility] Admin: 06/08/18 17:34 Dose: 325 mg Finasteride (Proscar) 5 mg PO DAILY [facility] Last Admin: 06/08/18 09:53 Dose: 5 mg Heparin Sodium (Porcine) (Heparin Na) 5,000 unit SC Q8 [facility] Last Admin: 06/09/18 05:43 Dose: Not Given [facility]xychloroquine [facility] Last Admin: 06/08/18 17:34 Dose: 200 mg Sodium Chloride () 250 mls @ 15 mls/hr IV .[id number] PRN PRN Reason: SALINE FLUSH Cefazolin Sodium 2 gm/ Sodium (Chloride) 110 mls @ 150 mls/hr IV Q8 [facility] Last Admin: 06/09/18 05:43 Dose: 150 mls/hr Sodium Chloride () 1,000 mls @ 100 mls/hr IV .Q10H [facility] Last Admin: 06/09/18 01:11 Dose: 100 mls/hr Levothyroxine Sodium (Synthroid) 112 mcg PO DAILY@0600 [facility] Last Admin: 06/09/18 05:43 Dose: 112 mcg Metoprolol Tartrate (Lopressor (Beta Humberto)) 12.5 mg PO DAILY [facility] Last Admin: 06/09/18 02:34 Dose: 12.5 mg Morphine Sulfate () 2 - 4 mg IV Q2H PRN PRN PRN Reason: SEVERE PAIN (6-10/10) Morphine Sulfate () 2 - 4 mg IV Q2H PRN PRN PRN Reason: SEVERE PAIN (6-10/10) Nutritional Formula (Lactose Free) (Glucerna Shake) 120 ml PO TIDCM [facility] Pravastatin Sodium (Pravachol) 80 mg PO QHS [facility] Last Admin: 06/08/18 22:34 Dose: 80 mg Ramipril (Altace) 20 mg PO LUNCH [facility] Last Admin: 06/09/18 02:34 Dose: 20 mg Senna/Docusate Sodium (Senokot-S, Chante-Colace) 2 tablet PO BID [facility] Sodium Chloride () 5 - 15 ml IV UD PRN PRN Reason: SALINE FLUSH Last Admin: 06/07/18 21:40 Dose: 10 ml Tamsulosin HCl (Flomax) 0.4 mg PO DAILY@1730 [facility] Last Admin: 06/09/18 02:35 Dose: 0.4 mg Tramadol HCl (Ultram) 50 mg PO Q6H PRN PRN PRN Reason: MODERATE PAIN (4-5/10) Last Admin: 06/09/18 05:49 Dose: 50 mg Medical Necessity - Tobacco Use Smoking Status: Never smoker Tobacco Use: Non-smoker Assessment/Plan All Active Problems (Last Updated 06/01/18 @ 10:07 by Anupama Farnsworth) Positive blood cultures (Acute) Dehydration (Resolved) Diarrhea (Resolved) Generalized weakness (Resolved) Joint pain (Resolved) 1. Acute MSSA bacteremia due to septic arthritis of left knee prosthesis * 2 sets of blood cultures grew MSSA * still has left knee pain;; had mild fever at 99.3F yesterday * on IV cefazolin * 2D echo was negative for any vegetations; per discussion with Dr Vicente (ID), will recommend a CAMILLE. Cardiology on board * s/p left knee washout and total synovectomy * for CAMILLE as per cardiology schedule. * 2. 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 * 1g of vancomycin placed in wound during surgery * ID on board; to add on rifampin. * blood cultures repeated today 3. CAD s/p stents: * had recent stent placed in LAD in [facility] o/a of severe calcification in LAD, after initial cardiac cath was done here on 05/31/18. * On aspirin and Plavix. Orthopedics had wanted aspirin and Plavix held but per discussion with Dr. Victoria, patient to be kept on aspirin and Plavix on account of risk of in-stent thrombosis. * cardiology on board; cleared patient for surgery; patient at risk for bleeding in light of patient being on aspirin and plavix. * 4. Hyponatremia: Stable. Done was 133 today. 5. Hypokalemia: Potassium is 2.3 today. Went up to 2.6 after replacement. Will monitor. 6. Hyperlipidemia: on statin 7. Hypertension: BP meds held o/a of patient's BP running low. BP now in 150s and 160s after surgery. Ramipril and metoporol resumed. DVT prophylaxis: * heparin. * Per orthopedics, aspirin and plavix will be enough for DVT prophylaxis after pateint is discharged. * To continue with heparin whilst inpatient. Code Visit Inpatient E&M: 09731 Subs Hosp L3
[2018-06-09] MEDS: Morphine 4 MG/ML Syringe IV ×2 (15:09→20:40)
[2018-06-09] MEDS: 0.9% NaCl Peripheral Flush Adult/Peds IV ×2 (15:09→18:43)
[2018-06-09] MEDS: Glucerna Shake 120 ML LIQUID PO (18:29)
[2018-06-09] MEDS: Hydroxychloroquine 200 MG Tablet PO (18:29)
[2018-06-09] MEDS: Ferrous Sulfate 325 MG Tablet PO (18:29)
[2018-06-09] MEDS: hydrALAZINE 20 MG/ML Vial 10 MG IV (18:42)
[2018-06-09] MEDS: Cyanocobalamin 500 MCG Tablet 1000 MCG PO (20:42)
[2018-06-09] MEDS: Pravastatin 80 MG Tablet PO (20:42)
[2018-06-09] MEDS: Senna/Docusate Sodium 1 Tablet 2 TABLET PO (20:42)
[2018-06-09] MEDS: Heparin Injection (Vial) 5,000 UNIT/ML VIAL 5000 UNIT SC (20:52)
--- NOTE | 2018-06-09 21:29 | PCM.PN.BLA ---
Progress Note Patient with MSSA bacteremia and with debridement of prosthetic knee material. Per infectious disease note patient may benefit from rifampin. Nurse reported that patient is having fever and tylenol was given. Patient is on Cefazolin. Will start patient on Rifampin 600mg po daily pending Infectious disease to see patient again tomorrow.
[2018-06-10 01:54] VITALS: BP 129/73; PULSE 86; RESP 18; TEMP 37; O2SAT 97
[2018-06-10] MEDS: Morphine 2 MG/ML Syringe IV (01:58)
[2018-06-10] MEDS: Levothyroxine 112 MCG Tablet PO (05:54)
[2018-06-10] MEDS: Cefazolin 2 GM in 0.9% Normal Saline 100 ML IV ×3 (05:54→22:39)
[2018-06-10] MEDS: Heparin Injection (Vial) 5,000 UNIT/ML VIAL 5000 UNIT SC ×3 (05:55→22:39)
[2018-06-10] MEDS: 0.9% Normal Saline 1,000 ML 100 ML IV ×2 (05:56→20:19)
[2018-06-10 05:59] LABS: Hematocrit 26.3 % (40-54); Hemoglobin 8.9 g/dl (13.0-16.5); Mean Corp Hgb Conc 33.8 g/gl (32-36); Mean Corpuscular Hgb 27.4 pg (27.0-32.0); Mean Corpuscular Volume 80.9 fL (80-94); Mean Platelet Vol. 10.4 fl (6.2-12.0); Platelet Count 176 K/mm3 (150-450); RBC Distribution Width CV 14.4 % (11.6-14.6); RBC Distribution Width SD 41.2 fl (35.1-43.9); Red Blood Count 3.25 M/mm3 (4.6-6.2); White Blood Count 5.6 K/mm3 (4.4-11.0)
[2018-06-10] MEDS: traMADol 50 MG Tablet PO (06:03)
[2018-06-10 06:10] LABS: Scan Indicated on CBC? Y/N NO
[2018-06-10 06:16] LABS: Anion Gap 8 (5-15); BUN 10 mg/dL (7-18); BUN/Creat Ratio 13.2 RATIO (10-20); Calcium,Total 7.1 mg/dL (8.5-10.1); Chloride 106 mmol/L (98-107); Creatinine, Serum 0.76 mg/dL (0.70-1.30); EST Glomerular Filtration Rate 104 mL/min (>60); Est Glom Filt Rate - Afr Amer 126 mL/min (>60); Estimated Creatinine Clearance 50.51 ml/min; Glucose 100 mg/dL (74-106); Potassium 3.2 mmol/L (3.5-5.1); Sodium Level 136 mmol/L (136-145)
--- NOTE | 2018-06-10 08:29 | PCM.PN.ORT ---
Patient Problems: Active and Suspected Problems (Last Updated 06/01/18 @ 10:07 by Anupama Farnsworth) Positive blood cultures (Acute) Subjective: The patient was sitting in bed upon examination. Patient denies any chest pain, shortness of breath, dizziness, lightheadedness, nausea or vomiting, or calf pain. Patient does report pain in the left knee. Pain is controlled on medications with tramadol and Tylenol. Patient does have history of confusion postoperatively. No adverse overnight events. Patient is currently n.p.o and plan will be undergoing a CAMILLE today. Cardiology has been consulted and infectious disease is on board managing antibiotics. Patient did receive 2 units of blood one prior to surgery and 1 unit after. Patient currently is asymptomatic with examination. Objective: Vital signs stable and afebrile currently. Patient was running a low-grade fever on June 09, 2018 as well as episodes of tachycardia. Patient is able to plantarflex and dorsiflex actively. Sensation is intact to light touch to saphenous, sural, superficial and deep peroneal, and tibial distribution. Dressing is clean dry and intact. Hemovac drain in place with minimal output. Over last 24 hours patient has had 40 cc output in the drain. Negative Homans bilaterally, negative signs and symptoms of DVT. - Physical Exam General: Alert, Oriented x3, Cooperative, No apparent distress Vital Signs Temp Pulse Resp BP Pulse Ox 98.6 F 86 18 129/73 H 97 06/10/18 01:54 06/10/18 01:54 06/10/18 01:54 06/10/18 01:54 06/10/18 01:54 Oxygen Flow Rate (L/min) 2 Oxygen Delivery Method Room Air Weight: 81 kg Body Mass Index (BMI) 28.8 Finger Stick Blood Glucose 99 Intake and Output for Last 24 Hours 06/08/18 06/09/18 06/10/18 23:59 23:59 23:59 Intake Total 3547 / 3547 10569 / 79480 1566 / 1566 Output Total 1925 / 1925 1535 / 1535 1730 / 1730 Balance 1622 / 1622 45622 / 45968 -164 / -164 Microbiology Past 72 Hours 06/09/18 11:34 Gram Stain - Final Tissue - Knee 06/09/18 11:34 Gram Stain - Final Tissue - Knee 06/09/18 11:34 Gram Stain - Final Tissue - Knee 06/07/18 17:26 Gram Stain - Final Fluid - Synovial (joint) Body Fluid Culture - Final Staphylococcus aureus 06/06/18 22:15 Blood Culture - Final Blood Culture (Wb) - Venous Staphylococcus aureus 06/06/18 22:15 Blood Culture - Final Blood Culture (Wb) - Venous Staphylococcus aureus Laboratory Tests Past 24 Hrs 06/09/18 06/09/18 06/09/18 08:02 08:02 12:15 WBC RBC Hgb Hct MCV MCH MCHC RDW RDW Differential Plt Count MPV Sodium 133 L Potassium 3.6 Chloride 103 Carbon Dioxide 21.0 Anion Gap 9 BUN 13 Creatinine 0.87 Estim Creat Clear Calc 58.06 Est GFR (MDRD) Af Amer 107 Est GFR (MDRD) Non-Af 89 BUN/Creatinine Ratio 14.9 Glucose 92 Calcium 7.6 L Total Bilirubin 0.60 AST 32 ALT 16 Alkaline Phosphatase 104 Troponin I Total Protein 6.3 L Albumin 2.5 L Globulin 3.8 Albumin/Globulin Ratio 0.7 L Blood Type B POSITIVE Antibody Screen NEGATIVE Crossmatch See Detail 06/09/18 06/09/18 06/10/18 12:15 12:15 05:24 WBC 5.2 5.6 RBC 3.24 L 3.25 L Hgb 8.9 L 8.9 L Hct 26.4 L 26.3 L MCV 81.5 80.9 MCH 27.5 27.4 MCHC 33.7 33.8 RDW 14.6 14.4 RDW Differential 43.8 41.2 Plt Count 174 176 MPV 9.7 10.4 Sodium Potassium Chloride Carbon Dioxide Anion Gap BUN Creatinine Estim Creat Clear Calc Est GFR (MDRD) Af Amer Est GFR (MDRD) Non-Af BUN/Creatinine Ratio Glucose Calcium Total Bilirubin AST ALT Alkaline Phosphatase Troponin I < 0.015 Total Protein Albumin Globulin Albumin/Globulin Ratio Blood Type Antibody Screen Crossmatch 06/10/18 05:24 WBC RBC Hgb Hct MCV MCH MCHC RDW RDW Differential Plt Count MPV Sodium 136 Potassium 3.2 L Chloride 106 Carbon Dioxide 22.0 Anion Gap 8 BUN 10 Creatinine 0.76 Estim Creat Clear Calc 50.51 Est GFR (MDRD) Af Amer 126 Est GFR (MDRD) Non-Af 104 BUN/Creatinine Ratio 13.2 Glucose 100 Calcium 7.1 L Total Bilirubin AST ALT Alkaline Phosphatase Troponin I Total Protein Albumin Globulin Albumin/Globulin Ratio Blood Type Antibody Screen Crossmatch Medical Necessity - Tobacco Use Smoking Status: Never smoker Tobacco Use: Non-smoker Assessment/Plan All Active Problems (Last Updated 06/01/18 @ 10:07 by Anupama Farnsworth) Positive blood cultures (Acute) Dehydration (Resolved) Diarrhea (Resolved) Generalized weakness (Resolved) Joint pain (Resolved) 1. S/P irrigation debridement with polyethylene exchange left knee secondary to acute periprosthetic left total knee infection POD #1 2. Continue Pain Medications: Tylenol and Ultram 3. DVT Prophylaxis: Continue with aspirin and Plavix 4. PT/OT: Weightbearing as tolerated, activity as tolerated 5. H & H: 8.9/26.3, asymptomatic. Patient did receive 2 units of packed red blood cells. 6. Encouraged Incentive Spirometry 7. Continue postoperative medical management per medicine 8. Cardiology consult: Plan is for patient to undergo CAMILLE possibly today 9. Disease consult: Continue with current antibiotics and appreciate recommendations for antibiotics on discharge. 10. Continue with Hemovac drain: Plan will be for minimum 48 hours. Patient was not able to be taken off his Plavix and aspirin for surgery. Currently there is only been only 40 cc output over the past 24 hours. We will continue to monitor. 11. Disposition: Case management involved for appropriate discharge when medically ready.
--- NOTE | 2018-06-10 10:05 | PCM.PN.ID ---
Patient Problems: Active and Suspected Problems (Last Updated 06/01/18 @ 10:07 by Anupama Farnsworth) Positive blood cultures (Acute) Subjective: Patient overall clinically stable. The patient is out of bed to a chair. No cardiopulmonary distress. Currently on Ancef plus rifampin. No cardiopulmonary distress nor any gastrointestinal symptoms. Overall hemodynamically stable Objective: Alert and oriented does not appear toxic lungs are clear heart exam S1-S2 abdomen soft nontender - Physical Exam Vital Signs Temp Pulse Resp BP Pulse Ox 98.6 F 86 18 129/73 H 97 06/10/18 01:54 06/10/18 01:54 06/10/18 01:54 06/10/18 01:54 06/10/18 01:54 Oxygen Flow Rate (L/min) 2 Oxygen Delivery Method Room Air Weight: 81 kg Body Mass Index (BMI) 28.8 Finger Stick Blood Glucose 99 Intake and Output for Last 24 Hours 06/08/18 06/09/18 06/10/18 23:59 23:59 23:59 Intake Total 3547 / 3547 25762 / 11933 1566 / 1566 Output Total 1925 / 1925 1535 / 1535 1730 / 1730 Balance 1622 / 1622 95474 / 77779 -164 / -164 Microbiology Past 72 Hours 06/09/18 11:34 Gram Stain - Final Tissue - Knee 06/09/18 11:34 Gram Stain - Final Tissue - Knee 06/09/18 11:34 Gram Stain - Final Tissue - Knee 06/07/18 17:26 Gram Stain - Final Fluid - Synovial (joint) Body Fluid Culture - Final Staphylococcus aureus 06/06/18 22:15 Blood Culture - Final Blood Culture (Wb) - Venous Staphylococcus aureus 06/06/18 22:15 Blood Culture - Final Blood Culture (Wb) - Venous Staphylococcus aureus Laboratory Tests Past 24 Hrs 06/09/18 06/09/18 06/09/18 08:02 12:15 12:15 WBC 5.2 RBC 3.24 L Hgb 8.9 L Hct 26.4 L MCV 81.5 MCH 27.5 MCHC 33.7 RDW 14.6 RDW Differential 43.8 Plt Count 174 MPV 9.7 Sodium 133 L Potassium 3.6 Chloride 103 Carbon Dioxide 21.0 Anion Gap 9 BUN 13 Creatinine 0.87 Estim Creat Clear Calc 58.06 Est GFR (MDRD) Af Amer 107 Est GFR (MDRD) Non-Af 89 BUN/Creatinine Ratio 14.9 Glucose 92 Calcium 7.6 L Total Bilirubin 0.60 AST 32 ALT 16 Alkaline Phosphatase 104 Troponin I Total Protein 6.3 L Albumin 2.5 L Globulin 3.8 Albumin/Globulin Ratio 0.7 L Crossmatch See Detail 06/09/18 06/10/18 06/10/18 12:15 05:24 05:24 WBC 5.6 RBC 3.25 L Hgb 8.9 L Hct 26.3 L MCV 80.9 MCH 27.4 MCHC 33.8 RDW 14.4 RDW Differential 41.2 Plt Count 176 MPV 10.4 Sodium 136 Potassium 3.2 L Chloride 106 Carbon Dioxide 22.0 Anion Gap 8 BUN 10 Creatinine 0.76 Estim Creat Clear Calc 50.51 Est GFR (MDRD) Af Amer 126 Est GFR (MDRD) Non-Af 104 BUN/Creatinine Ratio 13.2 Glucose 100 Calcium 7.1 L Total Bilirubin AST ALT Alkaline Phosphatase Troponin I < 0.015 Total Protein Albumin Globulin Albumin/Globulin Ratio Crossmatch Medical Necessity - Tobacco Use Smoking Status: Never smoker Tobacco Use: Non-smoker Route of nutrition/ use of supplements: [] Nutritional Intake: [] IV Site: [] Amaro Catheter: [] - Assessment/Plan MSSA bacteremia with left periprosthetic knee infection status post surgical washout. At this point continue Ancef plus rifampin and follow patient clinically. P blood cultures are pending.
[2018-06-10 10:33] VITALS: BP 154/73; PULSE 89; RESP 16; TEMP 37.2; O2SAT 96
[2018-06-10] MEDS: Ferrous Sulfate 325 MG Tablet PO ×2 (10:51→16:56)
[2018-06-10] MEDS: Hydroxychloroquine 200 MG Tablet PO ×2 (10:52→16:56)
[2018-06-10] MEDS: Glucerna Shake 120 ML LIQUID PO ×2 (10:53→16:56)
[2018-06-10 10:55] VITALS: PULSE 89
[2018-06-10] MEDS: Metoprolol Tartrate 25 MG Tablet 12.5 MG PO (10:55)
[2018-06-10] MEDS: Clopidogrel Bisulfate 75 MG Tablet PO (10:57)
[2018-06-10] MEDS: Aspirin E.C. 81 MG Tablet PO (10:57)
[2018-06-10] MEDS: Senna/Docusate Sodium 1 Tablet 2 TABLET PO ×2 (10:58→22:39)
[2018-06-10] MEDS: Finasteride 5 MG Tablet PO (10:58)
[2018-06-10] MEDS: Cyanocobalamin 500 MCG Tablet 1000 MCG PO ×2 (10:59→22:39)
--- NOTE | 2018-06-10 12:30 | PCM.PN.HOSP ---
Patient Problems: Active and Suspected Problems (Last Updated 06/01/18 @ 10:07 by Anupama Farnsworth) Positive blood cultures (Acute) Subjective: Patient seen and examined. He still complains of pain in his left knee especially with movement which aggravates the pain to about 9/10. He denies any fever or chills, palpitations or dizziness, chest pain, diarrhea vomiting. Review of systems otherwise negative. Labs and vitals reviewed. Vitals/I&O's: Vital Signs Temp Pulse Resp BP Pulse Ox 98.9 F 89 16 154/73 H 96 06/10/18 10:33 06/10/18 10:55 06/10/18 10:33 06/10/18 10:33 06/10/18 10:33 Oxygen Flow Rate (L/min) 2 Oxygen Delivery Method Room Air Weight: 178 lb 9.191 oz Body Mass Index (BMI) 28.8 Finger Stick Blood Glucose 99 Intake and Output for Last 24 Hours 06/08/18 06/09/18 06/10/18 23:59 23:59 23:59 Intake Total 3547 / 3547 05997 / 30417 1566 / 1566 Output Total 1925 / 1925 1535 / 1535 1730 / 1730 Balance 1622 / 1622 63950 / 78503 -164 / -164 General: Alert, lethargic, Cooperative, HEENT: Atraumatic, PERRLA, EOMI, Normocephalic Oral: Moist Mucosa Neck: Supple, No JVD, Negative Carotid Bruits Lungs: Clear to auscultation, Normal air movement, No rhonchi, No wheeze, No rales Cardiovascular: Regular rate, Regular Rhythm, Normal S1, Normal S2, grade 2-3 systolic murmur loudest in aortic region Abdomen: Bowel Sounds Present, Soft, Non Tender, Non-Distended, No Hepato-splenomegaly Extremities: - - lefty knee wrapped in bandage. Skin: No rashes, No breakdown Musculoskeletal: No Tenderness to Palpation of Joints or Extremities, - - as under extremities Lymphatic: No Cervical, Supraclavicular, or Inguinal Adenopathy Neurological: Cranial nerves II-XII grossly intact, Neuro grossly intact, - - decreased power of 4/5 in LLE due to pain Psych/Mental Status: Normal Affect, Microbiology Past 72 Hours 06/09/18 11:34 Tissue - Knee Gram Stain - Final 06/09/18 11:34 Tissue - Knee Wound Culture - Preliminary Staphylococcus aureus 06/09/18 11:34 Tissue - Knee Gram Stain - Final 06/09/18 11:34 Tissue - Knee Wound Culture - Preliminary Staphylococcus aureus 06/09/18 11:34 Tissue - Knee Gram Stain - Final 06/09/18 11:34 Tissue - Knee Wound Culture - Preliminary Staphylococcus aureus 06/07/18 17:26 Fluid - Synovial (joint) Gram Stain - Final 06/07/18 17:26 Fluid - Synovial (joint) Body Fluid Culture - Final Staphylococcus aureus 06/06/18 22:15 Blood Culture (Wb) - Venous Blood Culture - Final Staphylococcus aureus 06/06/18 22:15 Blood Culture (Wb) - Venous Blood Culture - Final Staphylococcus aureus Laboratory Results 06/09/18 08:02: Crossmatch See Detail 06/09/18 12:15: Sodium 133 L, Potassium 3.6, Chloride 103, Carbon Dioxide 21.0, Anion Gap 9, BUN 13, Creatinine 0.87, Estim Creat Clear Calc 58.06, Est GFR (MDRD) Af Amer 107, Est GFR (MDRD) Non-Af 89, BUN/Creatinine Ratio 14.9, Glucose 92, Calcium 7.6 L, Total Bilirubin 0.60, AST 32, ALT 16, Alkaline Phosphatase 104, Total Protein 6.3 L, Albumin 2.5 L, Globulin 3.8, Albumin/Globulin Ratio 0.7 L 06/09/18 12:15: WBC 5.2, RBC 3.24 L, Hgb 8.9 L, Hct 26.4 L, MCV 81.5, MCH 27.5, MCHC 33.7, RDW 14.6, RDW Differential 43.8, Plt Count 174, MPV 9.7 06/09/18 12:15: Troponin I < 0.015 06/10/18 05:24: WBC 5.6, RBC 3.25 L, Hgb 8.9 L, Hct 26.3 L, MCV 80.9, MCH 27.4, MCHC 33.8, RDW 14.4, RDW Differential 41.2, Plt Count 176, MPV 10.4 06/10/18 05:24: Sodium 136, Potassium 3.2 L, Chloride 106, Carbon Dioxide 22.0, Anion Gap 8, BUN 10, Creatinine 0.76, Estim Creat Clear Calc 50.51, Est GFR (MDRD) Af Amer 126, Est GFR (MDRD) Non-Af 104, BUN/Creatinine Ratio 13.2, Glucose 100, Calcium 7.1 L Current Medications Acetaminophen (Tylenol) 650 mg PO Q6H PRN PRN PRN Reason: Mild Pain (1-3)/Temp > 100.7 F Last Admin: 06/09/18 20:41 Dose: 650 mg Aspirin (Ecotrin) 81 mg PO DAILY [facility] Last Admin: 06/10/18 10:57 Dose: 81 mg Clopidogrel Bisulfate (Plavix) 75 mg PO DAILY [facility] Last Admin: 06/10/18 10:57 Dose: 75 mg Cyanocobalamin (Vitamin B12) 1,000 mcg PO BID [facility] Last Admin: 06/10/18 10:59 Dose: 1,000 mcg Ferrous Sulfate ([facility] S[facility]ate) [facility] Last Admin: 06/10/18 10:51 Dose: 325 mg Finasteride (Proscar) 5 mg PO DAILY [facility] Last Admin: 06/10/18 10:58 Dose: 5 mg Heparin Sodium (Porcine) (Heparin Na) 5,000 unit SC Q8 [facility] Last Admin: 06/10/18 05:55 Dose: 5,000 unit Hydralazine HCl (Apresoline Iv) 10 mg IV Q6H PRN PRN PRN Reason: SYS BP >160 Last Admin: 06/09/18 18:42 Dose: 10 mg Hydroxychloroquine Sulfate (Plaquenil) [facility] Last Admin: 06/10/18 10:52 Dose: 200 mg Sodium Chloride () 250 mls @ 15 mls/hr IV .[id number] PRN PRN Reason: SALINE FLUSH Cefazolin Sodium 2 gm/ Sodium (Chloride) 110 mls @ 150 mls/hr IV Q8 [facility] Last Admin: 06/10/18 05:54 Dose: 150 mls/hr Sodium Chloride () 1,000 mls @ 100 mls/hr IV .Q10H [facility] Last Admin: 06/10/18 05:56 Dose: 100 mls/hr Levothyroxine Sodium (Synthroid) 112 mcg PO DAILY@0600 [facility] Last Admin: 06/10/18 05:54 Dose: 112 mcg Metoprolol Tartrate (Lopressor (Beta Humberto)) 12.5 mg PO DAILY [facility] Last Admin: 06/10/18 10:55 Dose: 12.5 mg Morphine Sulfate () 2 - 4 mg IV Q2H PRN PRN PRN Reason: SEVERE PAIN (6-10/10) Last Admin: 06/10/18 01:58 Dose: 2 mg Morphine Sulfate () 2 - 4 mg IV Q2H PRN PRN PRN Reason: SEVERE PAIN (6-10/10) Last Admin: 06/09/18 20:40 Dose: 4 mg Nutritional Formula (Lactose Free) (Glucerna Shake) 120 ml PO TIDCM [facility] Last Admin: 06/10/18 11:10 Dose: Not Given Pravastatin Sodium (Pravachol) 80 mg PO QHS [facility] Last Admin: 06/09/18 20:42 Dose: 80 mg Ramipril (Altace) 20 mg PO LUNCH [facility] Last Admin: 06/09/18 02:34 Dose: 20 mg Rifampin (Rifadin) 600 mg PO DAILY [facility] Senna/Docusate Sodium (Senokot-S, Chante-Colace) 2 tablet PO BID [facility] Last Admin: 06/10/18 10:58 Dose: 2 tablet Sodium Chloride () 5 - 15 ml IV UD PRN PRN Reason: SALINE FLUSH Last Admin: 06/09/18 18:43 Dose: 10 ml Tamsulosin HCl (Flomax) 0.4 mg PO DAILY@1730 [facility] Last Admin: 06/09/18 18:29 Dose: 0.4 mg Tramadol HCl (Ultram) 50 mg PO Q6H PRN PRN PRN Reason: MODERATE PAIN (4-5/10) Last Admin: 06/10/18 06:03 Dose: 50 mg Medical Necessity - Tobacco Use Smoking Status: Never smoker Tobacco Use: Non-smoker Assessment/Plan All Active Problems (Last Updated 06/01/18 @ 10:07 by Anupama Farnsworth) Positive blood cultures (Acute) Dehydration (Resolved) Diarrhea (Resolved) Generalized weakness (Resolved) Joint pain (Resolved) 1. 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 PT/OT/ on board 2. 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 1g of vancomycin placed in wound during surgery ID on board; to add on rifampin. blood cultures repeated and results are pending. 3. CAD s/p stents: had recent stent placed in LAD in [facility] o/a of severe calcification in LAD, after initial cardiac cath was done here on 05/31/18. On aspirin and Plavix. cardiology on board; 4. Hyponatremia: Stable. Sodium was 136 today. 5. Hypokalemia: Potassium is 3.2 today. Will replace and monitor 6. Hyperlipidemia: on statin 7. Hypertension:on ramipril and metoprolol. DVT prophylaxis: heparin. Per orthopedics, aspirin and plavix will be enough for DVT prophylaxis after pateint is discharged. To continue with heparin whilst inpatient. Code Visit Inpatient E&M: 70604 Subs Hosp L3
--- NOTE | 2018-06-10 12:38 | PN_ITS ---
Patient Problems: Active and Suspected Problems (Last Updated 06/01/18 @ 10:07 by Anupama Farnsworth) Positive blood cultures (Acute) Subjective: Patient seen and examined. He still complains of pain in his left knee especially with movement which aggravates the pain to about 9/10. He denies any fever or chills, palpitations or dizziness, chest pain, diarrhea vomiting. Review of systems otherwise negative. Labs and vitals reviewed. Vitals/I&O's: Vital Signs Temp Pulse Resp BP Pulse Ox 98.9 F 89 16 154/73 H 96 06/10/18 10:33 06/10/18 10:55 06/10/18 10:33 06/10/18 10:33 06/10/18 10:33 Oxygen Flow Rate (L/min) 2 Oxygen Delivery Method Room Air Weight: 178 lb 9.191 oz Body Mass Index (BMI) 28.8 Finger Stick Blood Glucose 99 Intake and Output for Last 24 Hours 06/08/18 06/09/18 06/10/18 23:59 23:59 23:59 Intake Total 3547 / 3547 23166 / 46597 1566 / 1566 Output Total 1925 / 1925 1535 / 1535 1730 / 1730 Balance 1622 / 1622 44386 / 63036 -164 / -164 General: Alert, lethargic, Cooperative, HEENT: Atraumatic, PERRLA, EOMI, Normocephalic Oral: Moist Mucosa Neck: Supple, No JVD, Negative Carotid Bruits Lungs: Clear to auscultation, Normal air movement, No rhonchi, No wheeze, No rales Cardiovascular: Regular rate, Regular Rhythm, Normal S1, Normal S2, grade 2-3 systolic murmur loudest in aortic region Abdomen: Bowel Sounds Present, Soft, Non Tender, Non-Distended, No Hepato- splenomegaly Extremities: - - lefty knee wrapped in bandage. Skin: No rashes, No breakdown Musculoskeletal: No Tenderness to Palpation of Joints or Extremities, - - as under extremities Lymphatic: No Cervical, Supraclavicular, or Inguinal Adenopathy Neurological: Cranial nerves II-XII grossly intact, Neuro grossly intact, - - decreased power of 4/5 in LLE due to pain Psych/Mental Status: Normal Affect, Microbiology Past 72 Hours 06/09/18 11:34 Tissue - Knee Gram Stain - Final 06/09/18 11:34 Tissue - Knee Wound Culture - Preliminary Staphylococcus aureus 06/09/18 11:34 Tissue - Knee Gram Stain - Final 06/09/18 11:34 Tissue - Knee Wound Culture - Preliminary Staphylococcus aureus 06/09/18 11:34 Tissue - Knee Gram Stain - Final 06/09/18 11:34 Tissue - Knee Wound Culture - Preliminary Staphylococcus aureus 06/07/18 17:26 Fluid - Synovial (joint) Gram Stain - Final 06/07/18 17:26 Fluid - Synovial (joint) Body Fluid Culture - Final Staphylococcus aureus 06/06/18 22:15 Blood Culture (Wb) - Venous Blood Culture - Final Staphylococcus aureus 06/06/18 22:15 Blood Culture (Wb) - Venous Blood Culture - Final Staphylococcus aureus Laboratory Results 06/09/18 08:02: Crossmatch See Detail 06/09/18 12:15: Sodium 133 L, Potassium 3.6, Chloride 103, Carbon Dioxide 21.0, Anion Gap 9, BUN 13, Creatinine 0.87, Estim Creat Clear Calc 58.06, Est GFR (MDRD) Af Amer 107, Est GFR (MDRD) Non-Af 89, BUN/Creatinine Ratio 14.9, Glucose 92, Calcium 7.6 L, Total Bilirubin 0.60, AST 32, ALT 16, Alkaline Phosphatase 104, Total Protein 6.3 L, Albumin 2.5 L, Globulin 3.8, Albumin/Globulin Ratio 0.7 L 06/09/18 12:15: WBC 5.2, RBC 3.24 L, Hgb 8.9 L, Hct 26.4 L, MCV 81.5, MCH 27.5, MCHC 33.7, RDW 14.6, RDW Differential 43.8, Plt Count 174, MPV 9.7 06/09/18 12:15: Troponin I < 0.015 06/10/18 05:24: WBC 5.6, RBC 3.25 L, Hgb 8.9 L, Hct 26.3 L, MCV 80.9, MCH 27.4, MCHC 33.8, RDW 14.4, RDW Differential 41.2, Plt Count 176, MPV 10.4 06/10/18 05:24: Sodium 136, Potassium 3.2 L, Chloride 106, Carbon Dioxide 22.0, Anion Gap 8, BUN 10, Creatinine 0.76, Estim Creat Clear Calc 50.51, Est GFR (MDRD) Af Amer 126, Est GFR (MDRD) Non-Af 104, BUN/Creatinine Ratio 13.2, Glucose 100, Calcium 7.1 L Current Medications Acetaminophen (Tylenol) 650 mg PO Q6H PRN PRN PRN Reason: Mild Pain (1-3)/Temp > 100.7 F Last Admin: 06/09/18 20:41 Dose: 650 mg Aspirin (Ecotrin) 81 mg PO DAILY [facility] Last Admin: 06/10/18 10:57 Dose: 81 mg Clopidogrel Bisulfate (Plavix) 75 mg PO DAILY [facility] Last Admin: 06/10/18 10:57 Dose: 75 mg Cyanocobalamin (Vitamin B12) 1,000 mcg PO BID [facility] Last Admin: 06/10/18 10:59 Dose: 1,000 mcg Ferrous [facility] ([facility]) [facility] Last Admin: 06/10/18 10:51 Dose: 325 mg Finasteride (Proscar) 5 mg PO DAILY [facility] Last Admin: 06/10/18 10:58 Dose: 5 mg Heparin Sodium (Porcine) (Heparin Na) 5,000 unit SC Q8 [facility] Last Admin: 06/10/18 05:55 Dose: 5,000 unit Hydralazine HCl (Apresoline Iv) 10 mg IV Q6H PRN PRN PRN Reason: SYS BP >160 Last Admin: 06/09/18 18:42 Dose: 10 mg Hydroxychloroquine [facility]ate ([facility]il) [facility] Last Admin: 06/10/18 10:52 Dose: 200 mg Sodium Chloride () 250 mls @ 15 mls/hr IV .[id number] PRN PRN Reason: SALINE FLUSH Cefazolin Sodium 2 gm/ Sodium (Chloride) 110 mls @ 150 mls/hr IV Q8 [facility] Last Admin: 06/10/18 05:54 Dose: 150 mls/hr Sodium Chloride () 1,000 mls @ 100 mls/hr IV .Q10H [facility] Last Admin: 06/10/18 05:56 Dose: 100 mls/hr Levothyroxine Sodium (Synthroid) 112 mcg PO DAILY@0600 [facility] Last Admin: 06/10/18 05:54 Dose: 112 mcg Metoprolol Tartrate (Lopressor (Beta Humberto)) 12.5 mg PO DAILY [facility] Last Admin: 06/10/18 10:55 Dose: 12.5 mg Morphine Sulfate () 2 - 4 mg IV Q2H PRN PRN PRN Reason: SEVERE PAIN (6-10/10) Last Admin: 06/10/18 01:58 Dose: 2 mg Morphine Sulfate () 2 - 4 mg IV Q2H PRN PRN PRN Reason: SEVERE PAIN (6-10/10) Last Admin: 06/09/18 20:40 Dose: 4 mg Nutritional Formula (Lactose Free) (Glucerna Shake) 120 ml PO TIDCM [facility] Last Admin: 06/10/18 11:10 Dose: Not Given Pravastatin Sodium (Pravachol) 80 mg PO QHS [facility] Last Admin: 06/09/18 20:42 Dose: 80 mg Ramipril (Altace) 20 mg PO LUNCH [facility] Last Admin: 06/09/18 02:34 Dose: 20 mg Rifampin (Rifadin) 600 mg PO DAILY [facility] Senna/Docusate Sodium (Senokot-S, Chante-Colace) 2 tablet PO BID [facility] Last Admin: 06/10/18 10:58 Dose: 2 tablet Sodium Chloride () 5 - 15 ml IV UD PRN PRN Reason: SALINE FLUSH Last Admin: 06/09/18 18:43 Dose: 10 ml Tamsulosin HCl (Flomax) 0.4 mg PO DAILY@1730 [facility] Last Admin: 06/09/18 18:29 Dose: 0.4 mg Tramadol HCl (Ultram) 50 mg PO Q6H PRN PRN PRN Reason: MODERATE PAIN (4-5/10) Last Admin: 06/10/18 06:03 Dose: 50 mg Medical Necessity - Tobacco Use Smoking Status: Never smoker Tobacco Use: Non-smoker Assessment/Plan All Active Problems (Last Updated 06/01/18 @ 10:07 by Anupama Farnsworth) Positive blood cultures (Acute) Dehydration (Resolved) Diarrhea (Resolved) Generalized weakness (Resolved) Joint pain (Resolved) 1. Acute MSSA bacteremia due to septic arthritis of left knee prosthesis s/p left total synovectomy * 2 sets of blood cultures grew MSSA * still has left knee pain; especially with movement * on IV cefazolin and PO rifampin * 2D echo was negative for any vegetations * for CAMILLE tomorrow. * PT/OT/ on board * 2. 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 * 1g of vancomycin placed in wound during surgery * ID on board; to add on rifampin. * blood cultures repeated and results are pending. 3. CAD s/p stents: * had recent stent placed in LAD in [facility] o/a of severe calcification in LAD, after initial cardiac cath was done here on 05/31/18. * On aspirin and Plavix. * cardiology on board; * 4. Hyponatremia: Stable. Sodium was 136 today. 5. Hypokalemia: Potassium is 3.2 today. Will replace and monitor 6. Hyperlipidemia: on statin 7. Hypertension:on ramipril and metoprolol. DVT prophylaxis: * heparin. * Per orthopedics, aspirin and plavix will be enough for DVT prophylaxis after pateint is discharged. * To continue with heparin whilst inpatient. Code Visit Inpatient E&M: 19381 Subs Hosp L3
[2018-06-10] MEDS: Ramipril 10 MG Capsule 20 MG PO (12:50)
[2018-06-10] MEDS: rifAMPin 300 MG Capsule 600 MG PO (13:14)
[2018-06-10] MEDS: Tamsulosin HCl 0.4 MG Capsule PO (16:56)
[2018-06-10 20:15] VITALS: BP 134/79; PULSE 100; RESP 16; TEMP 37; O2SAT 98
[2018-06-10] MEDS: Pravastatin 80 MG Tablet PO (22:39)
[2018-06-11] VITALS (9 sets, daily range): BP systolic 112–155; BP diastolic 77–93; PULSE 90–101; RESP 14–16; TEMP 36.9–37.6; O2SAT 94–98
[2018-06-11] MEDS: Levothyroxine 112 MCG Tablet PO (05:14)
[2018-06-11] MEDS: Heparin Injection (Vial) 5,000 UNIT/ML VIAL 5000 UNIT SC ×3 (05:14→21:09)
[2018-06-11] MEDS: Cefazolin 2 GM in 0.9% Normal Saline 100 ML IV ×3 (05:14→21:08)
--- NOTE | 2018-06-11 07:01 | PCM.PN.ORT ---
Patient Problems: Active and Suspected Problems (Last Updated 06/01/18 @ 10:07 by Anupama Farnsworth) Positive blood cultures (Acute) Subjective: The patient was sitting in bed upon examination. Patient denies any chest pain, shortness of breath, dizziness, lightheadedness, nausea or vomiting, or calf pain. Pain is controlled on medications. No adverse overnight events. Patient states his knee pain is better today. Patient did not undergo the CAMILLE yesterday and is planned for today. Patient has not had PICC line placed. Antibiotics are being continued including Ancef and rifampin. Objective: Vital signs stable and afebrile. Patient is able to plantarflex and dorsiflex actively. Sensation is intact to light touch to saphenous, sural, superficial and deep peroneal, and tibial distribution. Mepilex dressing is clean dry and intact. Hemovac drain in place with 120 cc output this morning. Negative Homans bilaterally, negative signs and symptoms of DVT. - Physical Exam General: Alert, Oriented x3, Cooperative, No apparent distress Vital Signs Temp Pulse Resp BP Pulse Ox 98.9 F 95 14 148/79 H 98 06/11/18 02:15 06/11/18 02:15 06/11/18 02:15 06/11/18 02:15 06/11/18 02:15 Oxygen Flow Rate (L/min) 2 Oxygen Delivery Method Room Air Weight: 81 kg Body Mass Index (BMI) 28.8 Finger Stick Blood Glucose 99 Intake and Output for Last 24 Hours 06/09/18 06/10/18 06/11/18 23:59 23:59 23:59 Intake Total 64853 / 36306 1566 / 1566 2914 / 2914 Output Total 1535 / 1535 1730 / 1730 2220 / 2220 Balance 29202 / 04583 -164 / -164 694 / 694 Microbiology Past 72 Hours 06/07/18 17:26 Gram Stain - Final Fluid - Synovial (joint) Body Fluid Culture - Final Staphylococcus aureus Anaerobic Culture - Final No anaerobic bacteria isolated. 06/09/18 11:34 Gram Stain - Final Tissue - Knee Wound Culture - Preliminary Staphylococcus aureus 06/09/18 11:34 Gram Stain - Final Tissue - Knee Wound Culture - Preliminary Staphylococcus aureus 06/09/18 11:34 Gram Stain - Final Tissue - Knee Wound Culture - Preliminary Staphylococcus aureus 06/06/18 22:15 Blood Culture - Final Blood Culture (Wb) - Venous Staphylococcus aureus 06/06/18 22:15 Blood Culture - Final Blood Culture (Wb) - Venous Staphylococcus aureus Medical Necessity - Tobacco Use Smoking Status: Never smoker Tobacco Use: Non-smoker Assessment/Plan All Active Problems (Last Updated 06/01/18 @ 10:07 by Anupama Farnsworth) Positive blood cultures (Acute) Dehydration (Resolved) Diarrhea (Resolved) Generalized weakness (Resolved) Joint pain (Resolved) 1. S/P irrigation debridement with polyethylene exchange left knee secondary to acute periprosthetic left total knee infection POD #2 2. Continue Pain Medications: Tylenol and Ultram 3. DVT Prophylaxis: Continue with aspirin and Plavix 4. PT/OT: Weightbearing as tolerated, activity as tolerated 5. H & H: 8.9/.3, asymptomatic. Patient did previously receive 2 units of packed red blood cells. 6. Encouraged Incentive Spirometry 7. Continue postoperative medical management per medicine 8. Cardiology consult: Plan is for patient to undergo CAMILLE possibly today 9. Disease consult: Continue with current antibiotics and appreciate recommendations for antibiotics on discharge. Patient currently on Ancef and rifampin 10. Continue with Hemovac drain: There was 120 cc output this morning and the Hemovac drain. Drain will be left in for 1 more day and follow output. Patient was not able to be taken off his Plavix and aspirin for surgery. 11. Disposition: Case management involved for appropriate discharge when medically ready.
[2018-06-11 07:24] LABS: Anion Gap 9 (5-15); BUN 9 mg/dL (7-18); BUN/Creat Ratio 11.3 RATIO (10-20); Calcium,Total 8.1 mg/dL (8.5-10.1); Chloride 105 mmol/L (98-107); EST Glomerular Filtration Rate 98 mL/min (>60); Est Glom Filt Rate - Afr Amer 119 mL/min (>60); Estimated Creatinine Clearance 63.14 ml/min; Glucose 112 mg/dL (74-106); Potassium 3.4 mmol/L (3.5-5.1); Sodium Level 136 mmol/L (136-145)
[2018-06-11 07:40] LABS: Hematocrit 25.2 % (40-54); Hemoglobin 8.6 g/dl (13.0-16.5); Mean Corp Hgb Conc 34.1 g/gl (32-36); Mean Corpuscular Hgb 27.2 pg (27.0-32.0); Mean Corpuscular Volume 79.7 fL (80-94); Mean Platelet Vol. 10.1 fl (6.2-12.0); Platelet Count 217 K/mm3 (150-450); RBC Distribution Width CV 14.5 % (11.6-14.6); RBC Distribution Width SD 40.3 fl (35.1-43.9); Red Blood Count 3.16 M/mm3 (4.6-6.2); White Blood Count 7.1 K/mm3 (4.4-11.0)
[2018-06-11 07:43] LABS: Scan Indicated on CBC? Y/N NO
[2018-06-11] MEDS: 0.9% Normal Saline 1,000 ML 100 ML IV (07:52)
--- NOTE | 2018-06-11 08:37 | PN.CARD_ITS ---
Subjectve: Patient seen and evaluated. No cardiac complaints. Objective: Vital Signs Temp Pulse Resp BP Pulse Ox 98.6 F 100 16 155/85 H 97 06/11/18 07:50 06/11/18 07:50 06/11/18 07:50 06/11/18 07:50 06/11/18 07:50 Oxygen Flow Rate (L/min) 2 Oxygen Delivery Method Room Air Weight: 178 lb 9.191 oz Body Mass Index (BMI) 28.8 Finger Stick Blood Glucose 99 Intake and Output for Last 24 Hours 06/09/18 06/10/18 06/11/18 23:59 23:59 23:59 Intake Total 64379 / 54593 1566 / 1566 2914 / 2914 Output Total 1535 / 1535 1730 / 1730 2220 / 2220 Balance 30914 / 92629 -164 / -164 694 / 694 General: Awake, Alert, Oriented x 3 HEENT: PERRL, EOMI, Sclera Non Icteric Neck: Supple, Good ROM, No Lymph Node Enlargement Lungs: Clear to auscultation Cardiovascular: Regular Rhythm, Normal S1, Normal S2, No Murmurs, No Rubs, No Gallops Vascular: No Carotid Bruits, Normal Femoral Pulses, Normal Radial Pulses, Normal Dorsalis Pedal Pulse, Normal Posterior Tibial Pulses Abdomen: Bowel Sounds Present, Soft, Non Tender, No HSM, No Organomegaly Extremities: No Cyanosis, No Clubbing, No edema Neurological: No Focal Motor or Sensory Deficit 06/11/18 06:40: WBC 7.1, RBC 3.16 L, Hgb 8.6 L, Hct 25.2 L, MCV 79.7 L, MCH 27.2, MCHC 34.1, RDW 14.5, RDW Differential 40.3, Plt Count 217, MPV 10.1 06/11/18 06:40: Sodium 136, Potassium 3.4 L, Chloride 105, Carbon Dioxide 22.0, Anion Gap 9, BUN 9, Creatinine 0.80, Est GFR (MDRD) Af Amer 119, Est GFR (MDRD) Non-Af 98, BUN/Creatinine Ratio 11.3, Glucose 112 H, Calcium 8.1 L Rhythm: EKG: ECHO: Stress Test: Cardiac Cath: PCI: CT Surgery: Holter monitor: EPS: PPM: CXR: Chest CT Scan: Medical Necessity - Tobacco Use Smoking Status: Never smoker Tobacco Use: Non-smoker Assessment/Plan 1. Methicillin sensitive staph aureus bacteremia * The patient underwent a transesophageal echocardiogram today which dem onstrated no evidence of valvular vegetation noted. Mild mitral regurgitation tricuspid regurgitation noted. Overall preserved left ventricular systolic function. * The above findings make endocarditis less likely. * * Thank you for allowing me to participate in the care of your patient. Please don't hesitate to call if any issues arise
--- NOTE | 2018-06-11 09:00 | ECHOTEE_ITS ---
Reason For Study: Emboli, Bacteremia Medication CAMILLE probe passed without difficulty. No complications were noted. Cetacaine Topical [place] given X3 orally. Versed 1 mg given slow IVP. Fentanyl 25 mcg given slow IVP. Performed a rapid injection of agitated mix of 9 cc saline and 1cc air to assess for atrial septal defect. Left Ventricle Normal LV size. Left ventricular systolic function is normal. The estimated ejection fraction is 60 %. No regional wall motion abnormalities noted. Right Ventricle Normal RV size. Normal systolic function. Atria Hypermobile atrial septum. Normal left atrium. No thrombus is detected in the left atrial appendage. Normal right atrium. Mitral Valve Normal mitral valve. Mild (1+) eccentric mitral valve insufficiency. Tricuspid Valve Normal tricuspid valve. Aortic Valve Trisinus/trileaflet aortic valve. Mild focal aortic valve calcification. Pulmonic Valve Normal pulmonic valve. Vessels Normal aortic root. Mild atherosclerosis of the aortic arch. The pulmonary artery is normal size. Pericardium No pericardial effusion. Interpretation Summary Hypermobile atrial septum. Normal LV size. Left ventricular systolic function is normal. The estimated ejection fraction is 60 %. Mild focal aortic valve calcification. No vegetation noted Ordering Physician: João Victoria Referring Physician: Ximena Haines Performed By: Yuridia Smalls, RDCS, RVT
[2018-06-11] MEDS: Aspirin E.C. 81 MG Tablet PO (09:36)
[2018-06-11] MEDS: Metoprolol Tartrate 25 MG Tablet 12.5 MG PO (09:36)
[2018-06-11] MEDS: Cyanocobalamin 500 MCG Tablet 1000 MCG PO ×2 (09:36→21:08)
[2018-06-11] MEDS: Ferrous Sulfate 325 MG Tablet PO ×2 (09:36→16:59)
[2018-06-11] MEDS: Clopidogrel Bisulfate 75 MG Tablet PO (09:36)
[2018-06-11] MEDS: rifAMPin 300 MG Capsule 600 MG PO (09:37)
[2018-06-11] MEDS: Hydroxychloroquine 200 MG Tablet PO ×2 (09:37→16:58)
[2018-06-11] MEDS: Senna/Docusate Sodium 1 Tablet 2 TABLET PO (09:37)
[2018-06-11] MEDS: Finasteride 5 MG Tablet PO (09:39)
--- NOTE | 2018-06-11 10:04 | PN.ID_ITS ---
Patient Problems: Active and Suspected Problems (Last Updated 06/01/18 @ 10:07 by Anupama Farnsworth) Positive blood cultures (Acute) Subjective: Patient overall clinically stable. No fevers. Tolerating Ancef plus rifampin well. Patient underwent a transesophageal echocardiogram earlier this morning results reviewed. No valvular vegetations noted. His most recent blood cultures from 48 hours ago remain negative. Objective: Alert and oriented does not appear toxic. Lungs are clear heart exam S1-S2 syst olic murmur unchanged. Abdomen soft nontender - Physical Exam Vital Signs Temp Pulse Resp BP Pulse Ox 98.9 F 90 16 148/86 H 98 06/11/18 09:30 06/11/18 09:36 06/11/18 09:30 06/11/18 09:30 06/11/18 09:30 Oxygen Flow Rate (L/min) 2 Oxygen Delivery Method Nasal Cannula Weight: 81 kg Body Mass Index (BMI) 28.8 Finger Stick Blood Glucose 99 Intake and Output for Last 24 Hours 06/09/18 06/10/18 06/11/18 23:59 23:59 23:59 Intake Total 12382 / 09557 1566 / 1566 2914 / 2914 Output Total 1535 / 1535 1730 / 1730 2220 / 2220 Balance 53488 / 80688 -164 / -164 694 / 694 Microbiology Past 72 Hours 06/09/18 11:34 Gram Stain - Final Tissue - Knee Wound Culture - Final Staphylococcus aureus Anaerobic Culture - Final No anaerobic bacteria isolated. 06/09/18 11:34 Gram Stain - Final Tissue - Knee Wound Culture - Final Staphylococcus aureus Anaerobic Culture - Final No anaerobic bacteria isolated. 06/09/18 11:34 Gram Stain - Final Tissue - Knee Wound Culture - Final Staphylococcus aureus Anaerobic Culture - Final No anaerobic bacteria isolated. 06/09/18 12:25 Blood Culture - Preliminary Blood Culture (Wb) - Anticubital Right No growth in 48 hours. 06/09/18 12:15 Blood Culture - Preliminary Blood Culture (Wb) - Left Hand No growth in 48 hours. 06/07/18 17:26 Gram Stain - Final Fluid - Synovial (joint) Body Fluid Culture - Final Staphylococcus aureus Anaerobic Culture - Final No anaerobic bacteria isolated. 06/06/18 22:15 Blood Culture - Final Blood Culture (Wb) - Venous Staphylococcus aureus 06/06/18 22:15 Blood Culture - Final Blood Culture (Wb) - Venous Staphylococcus aureus Laboratory Tests Past 24 Hrs 06/11/18 06/11/18 06:40 06:40 WBC 7.1 RBC 3.16 L Hgb 8.6 L Hct 25.2 L MCV 79.7 L MCH 27.2 MCHC 34.1 RDW 14.5 RDW Differential 40.3 Plt Count 217 MPV 10.1 Sodium 136 Potassium 3.4 L Chloride 105 Carbon Dioxide 22.0 Anion Gap 9 BUN 9 Creatinine 0.80 Estim Creat Clear Calc 63.14 Est GFR (MDRD) Af Amer 119 Est GFR (MDRD) Non-Af 98 BUN/Creatinine Ratio 11.3 Glucose 112 H Calcium 8.1 L Medical Necessity - Tobacco Use Smoking Status: Never smoker Tobacco Use: Non-smoker Route of nutrition/ use of supplements: [] Nutritional Intake: [] IV Site: [] Amaro Catheter: [] - Assessment/Plan MSSA bacteremia with hematogenous seeding his left prosthetic knee. Plan for 6 weeks of Ancef plus rifampin. I will be happy to follow the patient in my office after discharge for oral antibiotics after completion of 6 weeks of parenteral antimicrobial therapy. I did arrange for PICC to be placed later today.
--- NOTE | 2018-06-11 10:11 | NURSING ---
supervisor drying called for PICC line. Will be here after 1200 for placement.
[2018-06-11] MEDS: Ramipril 10 MG Capsule 20 MG PO (12:17)
--- NOTE | 2018-06-11 13:00 | CASEMGMT ---
AMANDA LAND spoke with ID, patient to received Picc Line and IV ATBS at discharge. Referral was sent to [facility] and patient is covered at 100%. Confirmed with Caroline at [facility] that plan is for patient to discharge Thursday morning and [facility]'s home at 1400. AMANDA LAND confirmed HHC setup with [facility]. AMANDA LAND updated patient regarding IV ATB setup. CM to continue to follow this patient and plan for a safe discharge.
--- NOTE | 2018-06-11 14:01 | PCM.PN.HOSP ---
Patient Problems: Active and Suspected Problems (Last Updated 06/01/18 @ 10:07 by Anupama Farnsworth) Positive blood cultures (Acute) Subjective: Patient seen and examined. Pain is much better controlled. He denies any fever chills or palpitations or dizziness. Repeat blood cultures were negative states to have PICC line placed today. Currently on IV cefazolin and rifampin for MSSA septic arthritis of the left knee prosthesis. Labs and vitals reviewed. Vitals/I&O's: Vital Signs Temp Pulse Resp BP Pulse Ox 98.9 F 90 16 148/86 H 98 06/11/18 09:30 06/11/18 09:36 06/11/18 09:30 06/11/18 09:30 06/11/18 09:30 Oxygen Flow Rate (L/min) 2 Oxygen Delivery Method Nasal Cannula Weight: 178 lb 9.191 oz Body Mass Index (BMI) 28.8 Finger Stick Blood Glucose 99 Intake and Output for Last 24 Hours 06/09/18 06/10/18 06/11/18 23:59 23:59 23:59 Intake Total 25396 / 66730 1566 / 1566 3801 / 3801 Output Total 1535 / 1535 1730 / 1730 3235 / 3235 Balance 49059 / 25119 -164 / -164 566 / 566 General: Alert, Cooperative, HEENT: Atraumatic, PERRLA, EOMI, Normocephalic Oral: Moist Mucosa Neck: Supple, No JVD, Negative Carotid Bruits Lungs: Clear to auscultation, Normal air movement, No rhonchi, No wheeze, No rales Cardiovascular: Regular rate, Regular Rhythm, Normal S1, Normal S2, grade 2-3 systolic murmur loudest in aortic region Abdomen: Bowel Sounds Present, Soft, Non Tender, Non-Distended, No Hepato-splenomegaly Extremities: - - lefty knee wrapped in bandage. drain in place Skin: No rashes, No breakdown Musculoskeletal: No Tenderness to Palpation of Joints or Extremities, - - as under extremities Lymphatic: No Cervical, Supraclavicular, or Inguinal Adenopathy Neurological: Cranial nerves II-XII grossly intact, Neuro grossly intact, - - decreased power of 4/5 in LLE due to pain Psych/Mental Status: Normal Affect, Microbiology Past 72 Hours 06/09/18 11:34 Tissue - Knee Gram Stain - Final 06/09/18 11:34 Tissue - Knee Wound Culture - Final Staphylococcus aureus 06/09/18 11:34 Tissue - Knee Anaerobic Culture - Final No anaerobic bacteria isolated. 06/09/18 11:34 Tissue - Knee Gram Stain - Final 06/09/18 11:34 Tissue - Knee Wound Culture - Final Staphylococcus aureus 06/09/18 11:34 Tissue - Knee Anaerobic Culture - Final No anaerobic bacteria isolated. 06/09/18 11:34 Tissue - Knee Gram Stain - Final 06/09/18 11:34 Tissue - Knee Wound Culture - Final Staphylococcus aureus 06/09/18 11:34 Tissue - Knee Anaerobic Culture - Final No anaerobic bacteria isolated. 06/09/18 12:25 Blood Culture (Wb) - Anticubital Right Blood Culture - Preliminary No growth in 48 hours. 06/09/18 12:15 Blood Culture (Wb) - Left Hand Blood Culture - Preliminary No growth in 48 hours. 06/07/18 17:26 Fluid - Synovial (joint) Gram Stain - Final 06/07/18 17:26 Fluid - Synovial (joint) Body Fluid Culture - Final Staphylococcus aureus 06/07/18 17:26 Fluid - Synovial (joint) Anaerobic Culture - Final No anaerobic bacteria isolated. Laboratory Results 06/11/18 06:40: WBC 7.1, RBC 3.16 L, Hgb 8.6 L, Hct 25.2 L, MCV 79.7 L, MCH 27.2, MCHC 34.1, RDW 14.5, RDW Differential 40.3, Plt Count 217, MPV 10.1 06/11/18 06:40: Sodium 136, Potassium 3.4 L, Chloride 105, Carbon Dioxide 22.0, Anion Gap 9, BUN 9, Creatinine 0.80, Estim Creat Clear Calc 63.14, Est GFR (MDRD) Af Amer 119, Est GFR (MDRD) Non-Af 98, BUN/Creatinine Ratio 11.3, Glucose 112 H, Calcium 8.1 L Current Medications Acetaminophen (Tylenol) 650 mg PO Q6H PRN PRN PRN Reason: Mild Pain (1-3)/Temp > 100.7 F Last Admin: 06/09/18 20:41 Dose: 650 mg Aspirin (Ecotrin) 81 mg PO DAILY [facility]IK[facility] Last Admin: 06/11/18 09:36 Dose: 81 mg Clopidogrel Bisulfate (Plavix) 75 mg PO DAILY [facility] Last Admin: 06/11/18 09:36 Dose: 75 mg Cyanocobalamin (Vitamin B12) 1,000 mcg PO BID [facility] Last Admin: 06/11/18 09:36 Dose: 1,000 mcg [facility]ous [facility]) [facility] Last Admin: 06/11/18 09:36 Dose: 325 mg Finasteride (Proscar) 5 mg PO DAILY [facility] Last Admin: 06/11/18 09:39 Dose: 5 mg Heparin Sodium (Porcine) (Heparin Na) 5,000 unit SC Q8 [facility] Last Admin: 06/11/18 05:14 Dose: 5,000 unit Hydralazine HCl (Apresoline Iv) 10 mg IV Q6H PRN PRN PRN Reason: SYS BP >160 Last Admin: 06/09/18 18:42 Dose: 10 mg Hydroxychloroquine Sulfate ([facility]il) [facility] Last Admin: 06/11/18 09:37 Dose: 200 mg Sodium Chloride () 250 mls @ 15 mls/hr IV .[id number] PRN PRN Reason: SALINE FLUSH Cefazolin Sodium 2 gm/ Sodium (Chloride) 110 mls @ 150 mls/hr IV Q8 [facility] Last Admin: 06/11/18 05:14 Dose: 150 mls/hr Sodium Chloride () 1,000 mls @ 15 mls/hr IV .Q48H [facility] Levothyroxine Sodium (Synthroid) 112 mcg PO DAILY@0600 [facility] Last Admin: 06/11/18 05:14 Dose: 112 mcg Metoprolol Tartrate (Lopressor (Beta Humberto)) 12.5 mg PO DAILY [facility] Last Admin: 06/11/18 09:36 Dose: 12.5 mg Morphine Sulfate () 2 - 4 mg IV Q2H PRN PRN PRN Reason: SEVERE PAIN (6-10/10) Last Admin: 06/10/18 01:58 Dose: 2 mg Morphine Sulfate () 2 - 4 mg IV Q2H PRN PRN PRN Reason: SEVERE PAIN (6-10/10) Last Admin: 06/09/18 20:40 Dose: 4 mg Nutritional Formula (Lactose Free) (Glucerna Shake) 120 ml PO TIDCM [facility] Last Admin: 06/11/18 12:16 Dose: Not Given Pravastatin Sodium (Pravachol) 80 mg PO QHS [facility] Last Admin: 06/10/18 22:39 Dose: 80 mg Ramipril (Altace) 20 mg PO LUNCH [facility] Last Admin: 06/11/18 12:17 Dose: 20 mg Rifampin (Rifadin) 600 mg PO DAILY [facility] Last Admin: 06/11/18 09:37 Dose: 600 mg Senna/Docusate Sodium (Senokot-S, Chante-Colace) 2 tablet PO BID [facility] Last Admin: 06/11/18 09:37 Dose: 2 tablet Sodium Chloride () 5 - 15 ml IV UD PRN PRN Reason: SALINE FLUSH Last Admin: 06/09/18 18:43 Dose: 10 ml Tamsulosin HCl (Flomax) 0.4 mg PO DAILY@1730 [facility] Last Admin: 06/10/18 16:56 Dose: 0.4 mg Tramadol HCl (Ultram) 50 mg PO Q6H PRN PRN PRN Reason: MODERATE PAIN (4-5/10) Last Admin: 06/10/18 06:03 Dose: 50 mg Medical Necessity - Tobacco Use Smoking Status: Never smoker Tobacco Use: Non-smoker Assessment/Plan All Active Problems (Last Updated 06/01/18 @ 10:07 by Anupama Farnsworth) Positive blood cultures (Acute) Dehydration (Resolved) Diarrhea (Resolved) Generalized weakness (Resolved) Joint pain (Resolved) 1. Acute MSSA bacteremia due to septic arthritis of left knee prosthesis s/p left total synovectomy 2 sets of blood cultures grew MSSA; repeat blood cultures were negative after 48 hours on IV cefazolin and PO rifampin 2D echo was negative for any vegetations CAMILLE done today was also negative for any vegetations for PICC line placement today; will need 6 weeks of IV cefazolin and PO rifampin. To follow up with ID for oral antibiotics after completion of the 6 weeks. Stop date for antibiotics is 07/20/18 PT/OT/ on board 2. 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 1g of vancomycin placed in wound during surgery ID on board; on IV cefazolina nd rifampin repeat blood cultures were negative. 3. CAD s/p stents: had recent stent placed in LAD in [facility] o/a of severe calcification in LAD, after initial cardiac cath was done here on 05/31/18. On aspirin and Plavix. cardiology on board; 4. Hyponatremia: Stable. Sodium was 136 today. 5. Hypokalemia: Potassium is 3.4 today. Will replace and monitor 6. Hyperlipidemia: on statin 7. Hypertension:on ramipril and metoprolol. 8. Anemia: Hb today is 8.6. is s/p transition of 2 units of packed red blood cells after surgery. Will monitor. DVT prophylaxis: heparin. Per orthopedics, aspirin and plavix will be enough for DVT prophylaxis after pateint is discharged. To continue with heparin whilst inpatient. Disposition: For discharge home with home health care tomorrow if orthopedics removed drain today or tomorrow. Code Visit Inpatient E&M: 41129 Subs Hosp L2
--- NOTE | 2018-06-11 14:08 | PN_ITS ---
Patient Problems: Active and Suspected Problems (Last Updated 06/01/18 @ 10:07 by Anupama Farnsworth) Positive blood cultures (Acute) Subjective: Patient seen and examined. Pain is much better controlled. He denies any fever chills or palpitations or dizziness. Repeat blood cultures were negative states to have PICC line placed today. Currently on IV cefazolin and rifampin for MSSA septic arthritis of the left knee prosthesis. Labs and vitals reviewed. Vitals/I&O's: Vital Signs Temp Pulse Resp BP Pulse Ox 98.9 F 90 16 148/86 H 98 06/11/18 09:30 06/11/18 09:36 06/11/18 09:30 06/11/18 09:30 06/11/18 09:30 Oxygen Flow Rate (L/min) 2 Oxygen Delivery Method Nasal Cannula Weight: 178 lb 9.191 oz Body Mass Index (BMI) 28.8 Finger Stick Blood Glucose 99 Intake and Output for Last 24 Hours 06/09/18 06/10/18 06/11/18 23:59 23:59 23:59 Intake Total 18677 / 93947 1566 / 1566 3801 / 3801 Output Total 1535 / 1535 1730 / 1730 3235 / 3235 Balance 00385 / 54534 -164 / -164 566 / 566 General: Alert, Cooperative, HEENT: Atraumatic, PERRLA, EOMI, Normocephalic Oral: Moist Mucosa Neck: Supple, No JVD, Negative Carotid Bruits Lungs: Clear to auscultation, Normal air movement, No rhonchi, No wheeze, No rales Cardiovascular: Regular rate, Regular Rhythm, Normal S1, Normal S2, grade 2-3 systolic murmur loudest in aortic region Abdomen: Bowel Sounds Present, Soft, Non Tender, Non-Distended, No Hepato- splenomegaly Extremities: - - lefty knee wrapped in bandage. drain in place Skin: No rashes, No breakdown Musculoskeletal: No Tenderness to Palpation of Joints or Extremities, - - as under extremities Lymphatic: No Cervical, Supraclavicular, or Inguinal Adenopathy Neurological: Cranial nerves II-XII grossly intact, Neuro grossly intact, - - decreased power of 4/5 in LLE due to pain Psych/Mental Status: Normal Affect, Microbiology Past 72 Hours 06/09/18 11:34 Tissue - Knee Gram Stain - Final 06/09/18 11:34 Tissue - Knee Wound Culture - Final Staphylococcus aureus 06/09/18 11:34 Tissue - Knee Anaerobic Culture - Final No anaerobic bacteria isolated. 06/09/18 11:34 Tissue - Knee Gram Stain - Final 06/09/18 11:34 Tissue - Knee Wound Culture - Final Staphylococcus aureus 06/09/18 11:34 Tissue - Knee Anaerobic Culture - Final No anaerobic bacteria isolated. 06/09/18 11:34 Tissue - Knee Gram Stain - Final 06/09/18 11:34 Tissue - Knee Wound Culture - Final Staphylococcus aureus 06/09/18 11:34 Tissue - Knee Anaerobic Culture - Final No anaerobic bacteria isolated. 06/09/18 12:25 Blood Culture (Wb) - Anticubital Right Blood Culture - Preliminary No growth in 48 hours. 06/09/18 12:15 Blood Culture (Wb) - Left Hand Blood Culture - Preliminary No growth in 48 hours. 06/07/18 17:26 Fluid - Synovial (joint) Gram Stain - Final 06/07/18 17:26 Fluid - Synovial (joint) Body Fluid Culture - Final Staphylococcus aureus 06/07/18 17:26 Fluid - Synovial (joint) Anaerobic Culture - Final No anaerobic bacteria isolated. Laboratory Results 06/11/18 06:40: WBC 7.1, RBC 3.16 L, Hgb 8.6 L, Hct 25.2 L, MCV 79.7 L, MCH 27.2, MCHC 34.1, RDW 14.5, RDW Differential 40.3, Plt Count 217, MPV 10.1 06/11/18 06:40: Sodium 136, Potassium 3.4 L, Chloride 105, Carbon Dioxide 22.0, Anion Gap 9, BUN 9, Creatinine 0.80, Estim Creat Clear Calc 63.14, Est GFR (MDRD) Af Amer 119, Est GFR (MDRD) Non-Af 98, BUN/Creatinine Ratio 11.3, Glucose 112 H, Calcium 8.1 L Current Medications Acetaminophen (Tylenol) 650 mg PO Q6H PRN PRN PRN Reason: Mild Pain (1-3)/Temp > 100.7 F Last Admin: 06/09/18 20:41 Dose: 650 mg Aspirin (Ecotrin) 81 mg PO DAILY [facility] Last Admin: 06/11/18 09:36 Dose: 81 mg Clopidogrel Bisulfate (Plavix) 75 mg PO DAILY [facility] Last Admin: 06/11/18 09:36 Dose: 75 mg Cyanocobalamin (Vitamin B12) 1,000 mcg PO BID [facility] Last Admin: 06/11/18 09:36 Dose: 1,000 mcg Ferrous Sulfate ([facility]) [facility] Last Admin: 06/11/18 09:36 Dose: 325 mg Finasteride (Proscar) 5 mg PO DAILY [facility] Last Admin: 06/11/18 09:39 Dose: 5 mg Heparin Sodium (Porcine) (Heparin Na) 5,000 unit SC Q8 [facility] Last Admin: 06/11/18 05:14 Dose: 5,000 unit Hydralazine HCl (Apresoline Iv) 10 mg IV Q6H PRN PRN PRN Reason: SYS BP >160 Last Admin: 06/09/18 18:42 Dose: 10 mg Hydroxychloroquine Sulfate ([facility]aquenil) [facility] Last Admin: 06/11/18 09:37 Dose: 200 mg Sodium Chloride () 250 mls @ 15 mls/hr IV .[id number] PRN PRN Reason: SALINE FLUSH Cefazolin Sodium 2 gm/ Sodium (Chloride) 110 mls @ 150 mls/hr IV Q8 [facility] Last Admin: 06/11/18 05:14 Dose: 150 mls/hr Sodium Chloride () 1,000 mls @ 15 mls/hr IV .Q48H [facility] Levothyroxine Sodium (Synthroid) 112 mcg PO DAILY@0600 [facility] Last Admin: 06/11/18 05:14 Dose: 112 mcg Metoprolol Tartrate (Lopressor (Beta Humberto)) 12.5 mg PO DAILY [facility] Last Admin: 06/11/18 09:36 Dose: 12.5 mg Morphine Sulfate () 2 - 4 mg IV Q2H PRN PRN PRN Reason: SEVERE PAIN (6-10/10) Last Admin: 06/10/18 01:58 Dose: 2 mg Morphine Sulfate () 2 - 4 mg IV Q2H PRN PRN PRN Reason: SEVERE PAIN (6-10/10) Last Admin: 06/09/18 20:40 Dose: 4 mg Nutritional Formula (Lactose Free) (Glucerna Shake) 120 ml PO TIDCM [facility] Last Admin: 06/11/18 12:16 Dose: Not Given Pravastatin Sodium (Pravachol) 80 mg PO QHS [facility] Last Admin: 06/10/18 22:39 Dose: 80 mg Ramipril (Altace) 20 mg PO LUNCH [facility] Last Admin: 06/11/18 12:17 Dose: 20 mg Rifampin (Rifadin) 600 mg PO DAILY [facility] Last Admin: 06/11/18 09:37 Dose: 600 mg Senna/Docusate Sodium (Senokot-S, Chante-Colace) 2 tablet PO BID [facility] Last Admin: 06/11/18 09:37 Dose: 2 tablet Sodium Chloride () 5 - 15 ml IV UD PRN PRN Reason: SALINE FLUSH Last Admin: 06/09/18 18:43 Dose: 10 ml Tamsulosin HCl (Flomax) 0.4 mg PO DAILY@1730 [facility] Last Admin: 06/10/18 16:56 Dose: 0.4 mg Tramadol HCl (Ultram) 50 mg PO Q6H PRN PRN PRN Reason: MODERATE PAIN (4-5/10) Last Admin: 06/10/18 06:03 Dose: 50 mg Medical Necessity - Tobacco Use Smoking Status: Never smoker Tobacco Use: Non-smoker Assessment/Plan All Active Problems (Last Updated 06/01/18 @ 10:07 by Anupama Farnsworth) Positive blood cultures (Acute) Dehydration (Resolved) Diarrhea (Resolved) Generalized weakness (Resolved) Joint pain (Resolved) 1. Acute MSSA bacteremia due to septic arthritis of left knee prosthesis s/p left total synovectomy * 2 sets of blood cultures grew MSSA; repeat blood cultures were negative after 48 hours * on IV cefazolin and PO rifampin * 2D echo was negative for any vegetations * CAMILLE done today was also negative for any vegetations * for PICC line placement today; will need 6 weeks of IV cefazolin and PO rifampin. To follow up with ID for oral antibiotics after completion of the 6 weeks. Stop date for antibiotics is 07/20/18 * PT/OT/ on board * 2. 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 * 1g of vancomycin placed in wound during surgery * ID on board; on IV cefazolina nd rifampin * repeat blood cultures were negative. 3. CAD s/p stents: * had recent stent placed in LAD in [facility] o/a of severe calcification in LAD, after initial cardiac cath was done here on 05/31/18. * On aspirin and Plavix. * cardiology on board; * 4. Hyponatremia: Stable. Sodium was 136 today. 5. Hypokalemia: Potassium is 3.4 today. Will replace and monitor 6. Hyperlipidemia: on statin 7. Hypertension:on ramipril and metoprolol. 8. Anemia: Hb today is 8.6. is s/p transition of 2 units of packed red blood cells after surgery. Will monitor. DVT prophylaxis: * heparin. * Per orthopedics, aspirin and plavix will be enough for DVT prophylaxis after pateint is discharged. * To continue with heparin whilst inpatient. Disposition: For discharge home with home health care tomorrow if orthopedics removed drain today or tomorrow. Code Visit Inpatient E&M: 88647 Subs Hosp L2
[2018-06-11] MEDS: DiphenhydrAMINE 25 MG Capsule PO ×2 (15:44→23:22)
[2018-06-11] MEDS: Tamsulosin HCl 0.4 MG Capsule PO (16:58)
[2018-06-11] MEDS: traMADol 50 MG Tablet PO (21:06)
[2018-06-11] MEDS: 0.9% NaCl Peripheral Flush Adult/Peds IV (21:08)
[2018-06-11] MEDS: Pravastatin 80 MG Tablet PO (21:08)
[2018-06-11] MEDS: 0.9% NaCl IVPB Med Flush (250 mL) 15 ML IV (21:08)
[2018-06-12 02:15] VITALS: BP 151/67; PULSE 95; RESP 16; TEMP 37; O2SAT 94
[2018-06-12] MEDS: traMADol 50 MG Tablet PO (06:13)
[2018-06-12 06:14] LABS: Hematocrit 24.1 % (40-54); Hemoglobin 8.3 g/dl (13.0-16.5); Mean Corp Hgb Conc 34.4 g/gl (32-36); Mean Corpuscular Hgb 27.8 pg (27.0-32.0); Mean Corpuscular Volume 80.6 fL (80-94); Mean Platelet Vol. 8.9 fl (6.2-12.0); Platelet Count 234 K/mm3 (150-450); RBC Distribution Width CV 15.1 % (11.6-14.6); RBC Distribution Width SD 44.6 fl (35.1-43.9); Red Blood Count 2.99 M/mm3 (4.6-6.2); White Blood Count 5.7 K/mm3 (4.4-11.0)
[2018-06-12] MEDS: 0.9% NaCl Peripheral Flush Adult/Peds IV ×5 (06:14→10:02)
[2018-06-12] MEDS: Levothyroxine 112 MCG Tablet PO (06:14)
[2018-06-12] MEDS: Cefazolin 2 GM in 0.9% Normal Saline 100 ML IV (06:14)
[2018-06-12] MEDS: Heparin Injection (Vial) 5,000 UNIT/ML VIAL 5000 UNIT SC (06:15)
[2018-06-12 06:16] LABS: Scan Indicated on CBC? Y/N NO
[2018-06-12 06:45] LABS: Anion Gap 9 (5-15); BUN 11 mg/dL (7-18); BUN/Creat Ratio 13.4 RATIO (10-20); Calcium,Total 7.9 mg/dL (8.5-10.1); Chloride 103 mmol/L (98-107); Creatinine, Serum 0.82 mg/dL (0.70-1.30); EST Glomerular Filtration Rate 96 mL/min (>60); Est Glom Filt Rate - Afr Amer 116 mL/min (>60); Glucose 99 mg/dL (74-106); Potassium 3.6 mmol/L (3.5-5.1); Sodium Level 135 mmol/L (136-145)
[2018-06-12 07:28] VITALS: O2SAT 96
--- NOTE | 2018-06-12 07:49 | PCM.PN.ORT ---
Patient Problems: Active and Suspected Problems (Last Updated 06/01/18 @ 10:07 by Anupama Farnsworth) Positive blood cultures (Acute) Subjective: Patient doing well. Comfortable in bed this morning. Blood cultures remain negative. Otherwise stable. No chest pain or shortness of breath. No calf pain. - Physical Exam General: Alert, Oriented x3, Cooperative Extremities: - - Left lower extremity: Dressing is clean dry and intact Sensations intact to light touch saphenous, sural, superficial peroneal, deep peroneal, and tibial distributions Motors intact EHL, DF, PF calves are soft and supple Drain pulled, clotting in tubing Vital Signs Temp Pulse Resp BP Pulse Ox 98.6 F 95 16 151/67 H 96 06/12/18 02:15 06/12/18 02:15 06/12/18 02:15 06/12/18 02:15 06/12/18 07:28 Oxygen Flow Rate (L/min) 2 Oxygen Delivery Method Room Air Weight: 178 lb 9.191 oz Body Mass Index (BMI) 28.8 Finger Stick Blood Glucose 99 Intake and Output for Last 24 Hours 06/10/18 06/11/18 06/12/18 23:59 23:59 23:59 Intake Total 1566 / 1566 4479 / 4479 286 / 286 Output Total 1730 / 1730 3665 / 3665 1368 / 1368 Balance -164 / -164 814 / 814 -1082 / -1082 Microbiology Past 72 Hours 06/07/18 17:26 Fungal Smear - Final Other - Other 06/09/18 11:34 Gram Stain - Final Tissue - Knee Wound Culture - Final Staphylococcus aureus Anaerobic Culture - Final No anaerobic bacteria isolated. 06/09/18 11:34 Gram Stain - Final Tissue - Knee Wound Culture - Final Staphylococcus aureus Anaerobic Culture - Final No anaerobic bacteria isolated. 06/09/18 11:34 Gram Stain - Final Tissue - Knee Wound Culture - Final Staphylococcus aureus Anaerobic Culture - Final No anaerobic bacteria isolated. 06/09/18 12:25 Blood Culture - Preliminary Blood Culture (Wb) - Anticubital Right No growth in 48 hours. 06/09/18 12:15 Blood Culture - Preliminary Blood Culture (Wb) - Left Hand No growth in 48 hours. 06/07/18 17:26 Gram Stain - Final Fluid - Synovial (joint) Body Fluid Culture - Final Staphylococcus aureus Anaerobic Culture - Final No anaerobic bacteria isolated. Laboratory Tests Past 24 Hrs 06/12/18 06/12/18 05:48 05:48 WBC 5.7 RBC 2.99 L Hgb 8.3 L Hct 24.1 L MCV 80.6 MCH 27.8 MCHC 34.4 RDW 15.1 H RDW Differential 44.6 H Plt Count 234 MPV 8.9 Sodium 135 L Potassium 3.6 Chloride 103 Carbon Dioxide 23.0 Anion Gap 9 BUN 11 Creatinine 0.82 Estim Creat Clear Calc 61.60 Est GFR (MDRD) Af Amer 116 Est GFR (MDRD) Non-Af 96 BUN/Creatinine Ratio 13.4 Glucose 99 Calcium 7.9 L Medical Necessity - Tobacco Use Smoking Status: Never smoker Tobacco Use: Non-smoker Assessment/Plan All Active Problems (Last Updated 06/01/18 @ 10:07 by Anupama Farnsworth) Positive blood cultures (Acute) Dehydration (Resolved) Diarrhea (Resolved) Generalized weakness (Resolved) Joint pain (Resolved) 1. S/P irrigation debridement with polyethylene exchange left knee secondary to acute periprosthetic left total knee infection POD #3 2. Continue Pain Medications: Tylenol and Ultram 3. DVT Prophylaxis: Continue with aspirin and Plavix 4. PT/OT: Weightbearing as tolerated, activity as tolerated 5. H & H: 8.3, asymptomatic. Stable. Patient did previously receive 2 units of packed red blood cells prior to surgery/Intra-Op. Consistent with chronic anemia exacerbated by surgical intervention 6. Encouraged Incentive Spirometry 7. Continue postoperative medical management per medicine 8. Disease consult: Continue with current antibiotics and appreciate recommendations for antibiotics on discharge. Patient currently on Ancef and rifampin. ID did recommend oral antibiotics after IVs are complete. I think this would benefit the patient's outcome would make sure the patient has effective infectious disease follow-up 9. Hemovac drain: Drain output decreased, fluid and tube clotted. Drain pulled this morning 10. Disposition: Plan is for discharge today to home with home health care. [facility] Office:
--- NOTE | 2018-06-12 08:43 | DCINST_ITS ---
- Discharge Diagnoses Current Active Problems: Current Active and Chronic Problems (Last Updated 06/01/18 @ 10:07 by Anupama Farnsworth) Positive blood cultures (Acute) You will use the following diet at home:: Cardiac Your food should be the consistency of: Regular Discharge Activity: May Not Drive Call your doctor if you observe: Fever of 101 or Higher, Inability to urinate, Inability to have a bowel movement, Shortness of breath, Dizziness, Chest pain, Increased palpitations (irregular heartbeat), Uncontrolled pain Allergies/Adverse Reactions: Allergies No Known Allergies Allergy (Verified 06/06/18 21:38) Medications to take at Discharge Finasteride [Proscar] 5 mg PO QHS 09/21/13 Gabapentin [Neurontin] 300 mg PO TIDCM 09/21/13 Levothyroxine Sodium [Synthroid] 112 mcg PO QHS 09/21/13 Pravastatin [Pravachol] 80 mg PO DAILY 09/21/13 Tamsulosin HCl [Flomax] 0.4 mg PO QHS 09/21/13 Hydroxychloroquine [Plaquenil] 200 mg PO BIDCM 10/25/15 L.acidoph,Paracasei, B.lactis [Probiotic] 1 ea PO 10/25/15 Metoprolol(XL)Succ [Toprol Xl (Beta Humberto)] 12.5 mg PO LUNCH 01/21/18 aspirin 81 mg tablet,delayed release 81 mg PO QHS 04/27/18 risedronate 150 mg tablet 150 mg PO QMONTH 84 Days #3 tab 04/27/18 tramadol 50 mg tablet 50 mg PO BID PRN PRN 30 Days #60 tab 04/27/18 clopidogrel 75 mg tablet 75 mg PO DAILY #30 tab 05/05/18 nifedipine ER 30 mg tablet,extended release 24 hr 30 mg PO DAILY PRN PRN 05/05/18 ramipril 10 mg capsule 20 mg PO LUNCH cap 05/05/18 Cholecalciferol (Vitamin D3) [Vitamin D3] 5,000 unit PO QHS 06/05/18 Cyanocobalamin (Vitamin B-12) [Vitamin B-12] 1,000 mcg PO BID 06/05/18 Ferrous Sulfate [Slow Release Iron] 65 mg PO BID 06/05/18 Cefazolin 2 gm IV Q8 vial 06/12/18 Senna/Docusate Sodium [Senokot-S] 2 tablet PO BID PRN PRN tablet 06/12/18 traMADol [Ultram] 50 mg PO Q6H PRN PRN tablet 06/12/18 Primary Care Physician: Ximena Haines MD [Primary Care Provider] - Please follow up with your Primary Care Physician in: in 1-2 week Test Results: Test results from this visit will be discussed in further detail at your follow- up appointment, if applicable. Please Follow Up With: Raymon Felton MD When: Thursday Please Follow Up With: Gomez Easley MD When: in 2 week for IV antibiotic, cefazolin and po Rifampin
--- NOTE | 2018-06-12 08:43 | DS.PCM_ITS ---
Discharge Date and Diagnosis Date of Admission: 06/06/18 Date of Discharge: 06/12/18 - Primary Discharge Diagnosis Active and Suspected Problems (Last Updated 06/01/18 @ 10:07 by Anupama Farnsworth) Positive blood cultures (Acute) - Secondary Discharge Diagnosis Chronic Problems (Last Updated 06/01/18 @ 10:07 by Anupama Farnsworth) Stented coronary artery (Chronic 05/31/18) BILL to mid LAD (2.[address] X [address] Moss @ [facility] 05/31/18). 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 Patient was called for admission for further workup. Patient also had cardiac cath on May 31 in [facility] but examination of exercise did not show any evidence of infection. Patient had left knee replacement in February 2018 and there was suspicion for infection of prosthetic joint. Left knee was swollen and patient was further admitted on [facility] for bacteremia with ID consult and orthopedics consult. 1. Acute MSSA bacteremia due to septic arthritis of left knee prosthesis s/p left total synovectomy * 2 sets of blood cultures grew MSSA; repeat blood cultures were negative after 48 hours * on IV cefazolin and PO rifampin * 2D echo was negative for any vegetations * CAMILLE done today was also negative for any vegetations * PICC line was placed. need 6 weeks of IV cefazolin and PO rifampin. To follow up with ID for oral antibiotics after completion of the 6 weeks. Stop date for antibiotics is 07/20/18 * PT/OT/ on board 2. Left knee prtiprosthesis septic arthritis * Status post irrigation and debridement with polyethylene exchange of left knee secondary to acute periprosthetic left TKR infection * 1g of vancomycin placed in wound during surgery * ID on board; on IV cefazolina and rifampin * repeat blood cultures were negative. 3. CAD s/p stents: * had recent stent placed in LAD in [facility] with severe calcification in LAD, after initial cardiac cath was done here on 05/31/18. * On aspirin and Plavix. 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 Hyponatremia: Stable. Sodium was 136 today. 5. Hypokalemia: Potassium is 3.4 today. Will replace and monitor 6. Hyperlipidemia: on statin 7. Hypertension:on ramipril and metoprolol. 8. Anemia: Hb today is 8.6. is s/p transition of 2 units of packed red blood cells after surgery. Will monitor. DVT prophylaxis: * heparin. * Per orthopedics, aspirin and plavix will be enough for DVT prophylaxis after pateint is discharged. Discharge medication reconciliation done. Discharge follow-up instructions completed. Discharge process discussed with the patient and all questions were answered to patient's satisfaction. Home health was set up. Patient has PICC line for outpatient IV Ancef. Total time spent, exact 35 minutes on discharge meds reconciliation, examination, review of imaging and blood test and discussion with the patient on follow-up instructions. Subjective: Seen and examined. Patient sitting comfortably in the chair. Right lower extremity extended on the foot rest. No Fever or chills. Home health service was setup. - Physical Exam General: Alert, Oriented x3, Cooperative HEENT: Atraumatic, PERRLA, EOMI, Normocephalic Neck: Supple, No JVD, Negative Carotid Bruits Lungs: Clear to auscultation, Normal air movement, No rhonchi, No wheeze, No rales Cardiovascular: Regular rate, Regular Rhythm, Normal S2, No murmurs Abdomen: Bowel Sounds Present, Soft, Non Tender, Non-Distended Extremities: Capillary Refill Less than 3 Seconds, Edema, - - Right lower extremity surgical dressing was changed by Dr. Felton. The drain was pulled out. Dressing dry. Skin: No rashes, No breakdown Musculoskeletal: No Tenderness to Palpation of Joints or Extremities, Arthritic Changes Lymphatic: No Cervical, Supraclavicular, or Inguinal Adenopathy Neurological: Cranial nerves II-XII grossly intact Psych/Mental Status: Normal Affect, Appropriate Vital Signs Temp Pulse Resp BP Pulse Ox 98.6 F 95 16 151/67 H 96 06/12/18 02:15 06/12/18 02:15 06/12/18 02:15 06/12/18 02:15 06/12/18 07:28 Oxygen Flow Rate (L/min) 2 Oxygen Delivery Method Room Air Weight: 178 lb 9.191 oz Body Mass Index (BMI) 28.8 Finger Stick Blood Glucose 99 Intake and Output for Last 24 Hours 06/10/18 06/11/18 06/12/18 23:59 23:59 23:59 Intake Total 1566 / 1566 4479 / 4479 286 / 286 Output Total 1730 / 1730 3665 / 3665 1368 / 1368 Balance -164 / -164 814 / 814 -1082 / -1082 Microbiology Past 72 Hours 06/07/18 17:26 Fungal Smear - Final Other - Other 06/09/18 11:34 Gram Stain - Final Tissue - Knee Wound Culture - Final Staphylococcus aureus Anaerobic Culture - Final No anaerobic bacteria isolated. 06/09/18 11:34 Gram Stain - Final Tissue - Knee Wound Culture - Final Staphylococcus aureus Anaerobic Culture - Final No anaerobic bacteria isolated. 06/09/18 11:34 Gram Stain - Final Tissue - Knee Wound Culture - Final Staphylococcus aureus Anaerobic Culture - Final No anaerobic bacteria isolated. 06/09/18 12:25 Blood Culture - Preliminary Blood Culture (Wb) - Anticubital Right No growth in 48 hours. 06/09/18 12:15 Blood Culture - Preliminary Blood Culture (Wb) - Left Hand No growth in 48 hours. 06/07/18 17:26 Gram Stain - Final Fluid - Synovial (joint) Body Fluid Culture - Final Staphylococcus aureus Anaerobic Culture - Final No anaerobic bacteria isolated. Laboratory Tests Past 24 Hrs 06/12/18 06/12/18 05:48 05:48 WBC 5.7 RBC 2.99 L Hgb 8.3 L Hct 24.1 L MCV 80.6 MCH 27.8 MCHC 34.4 RDW 15.1 H RDW Differential 44.6 H Plt Count 234 MPV 8.9 Sodium 135 L Potassium 3.6 Chloride 103 Carbon Dioxide 23.0 Anion Gap 9 BUN 11 Creatinine 0.82 Estim Creat Clear Calc 61.60 Est GFR (MDRD) Af Amer 116 Est GFR (MDRD) Non-Af 96 BUN/Creatinine Ratio 13.4 Glucose 99 Calcium 7.9 L Home Medications: Medications to take at Discharge Finasteride [Proscar] 5 mg PO QHS 09/21/13 Gabapentin [Neurontin] 300 mg PO TIDCM 09/21/13 Levothyroxine Sodium [Synthroid] 112 mcg PO QHS 09/21/13 Pravastatin [Pravachol] 80 mg PO DAILY 09/21/13 Tamsulosin HCl [Flomax] 0.4 mg PO QHS 09/21/13 Hydroxychloroquine [Plaquenil] 200 mg PO BIDCM 10/25/15 L.acidoph,Paracasei, B.lactis [Probiotic] 1 ea PO 10/25/15 Metoprolol(XL)Succ [Toprol Xl (Beta Humberto)] 12.5 mg PO LUNCH 01/21/18 aspirin 81 mg tablet,delayed release 81 mg PO QHS 04/27/18 risedronate 150 mg tablet 150 mg PO QMONTH 84 Days #3 tab 04/27/18 tramadol 50 mg tablet 50 mg PO BID PRN PRN 30 Days #60 tab 04/27/18 clopidogrel 75 mg tablet 75 mg PO DAILY #30 tab 05/05/18 nifedipine ER 30 mg tablet,extended release 24 hr 30 mg PO DAILY PRN PRN 05/05/18 ramipril 10 mg capsule 20 mg PO LUNCH cap 05/05/18 Cholecalciferol (Vitamin D3) [Vitamin D3] 5,000 unit PO QHS 06/05/18 Cyanocobalamin (Vitamin B-12) [Vitamin B-12] 1,000 mcg PO BID 06/05/18 Ferrous Sulfate [Slow Release Iron] 65 mg PO BID 06/05/18 Cefazolin 2 gm IV Q8 vial 06/12/18 Senna/Docusate Sodium [Senokot-S] 2 tablet PO BID PRN PRN tablet 06/12/18 traMADol [Ultram] 50 mg PO Q6H PRN PRN tablet 06/12/18 Primary Care Physician: Ximena Haines MD [Primary Care Provider] - Please Follow Up With: Raymon Felton MD When: Thursday Medical Necessity - Tobacco Use Smoking Status: Never smoker Tobacco Use: Non-smoker Meaningful Use Info Meaningful Use Diagnoses (Choose all that apply): None applicable Code Visit Inpatient E&M: 26250 Disch Hosp
--- NOTE | 2018-06-12 09:22 | CASEMGMT ---
RN CM Note: spoke with home health nurse Poonam who would like updated when pt is dc'd today. She plans to be at his home @ 2 pm to start IV antibiotic and would like verified pt will be dc'd. Call to tye White nurse to update. Elsy FAUSTINN RN ACM
[2018-06-12 09:50] VITALS: BP 140/75; PULSE 94; RESP 18; TEMP 37.4; O2SAT 95
[2018-06-12 09:55] VITALS: PULSE 94
[2018-06-12] MEDS: Metoprolol Tartrate 25 MG Tablet 12.5 MG PO (09:55)
[2018-06-12] MEDS: Cyanocobalamin 500 MCG Tablet 1000 MCG PO (09:55)
[2018-06-12] MEDS: Clopidogrel Bisulfate 75 MG Tablet PO (09:55)
[2018-06-12] MEDS: Finasteride 5 MG Tablet PO (09:55)
[2018-06-12] MEDS: Aspirin E.C. 81 MG Tablet PO (09:55)
[2018-06-12] MEDS: Senna/Docusate Sodium 1 Tablet 2 TABLET PO (09:55)
[2018-06-12] MEDS: Ferrous Sulfate 325 MG Tablet PO (09:56)
[2018-06-12] MEDS: Hydroxychloroquine 200 MG Tablet PO (09:56)
[2018-06-12] MEDS: rifAMPin 300 MG Capsule 600 MG PO (09:56)
[2018-06-12] MEDS: Acetaminophen 325 MG Tablet 650 MG PO (09:56)
--- NOTE | 2018-06-12 10:58 | NURSING ---
Poonam [facility] informed of discharge and that Amina Camarillo did notify csi of discharge
--- NOTE | 2018-06-14 14:30 | CASEMGMT ---
AMANDA DC PHONE CALL DC DATE: 06/12/18 DC Disposition: Home with Home Care LACE/STRATA: 19/06 Attempted call to Home Phone-not working. Call to cell phone- message did not have identifier, no message left. Elsy FAUSTINN RN AC
== END 2018-06-12 11:17 | disposition home health service (06) | DRG 485 ==
LOC: ED 21:57 → MS3 23:38
PROVIDERS: Anesthesiology; Internal Medicine Infectious Disease; Orthopaedic Surgery; Specialist; Admitting Provider Internal Medicine; Emergency Provider Emergency Medicine; Family Provider Internal Medicine; PCP Internal Medicine; Visit Provider Student in an Organized Health Care Education/Training Program
PROC: 0SPD09Z Removal of Liner from Left Knee Joint, Open Approach (ICD-10-PCS; CPT 27301; principal; 2018-06-09 09:00)
DX: T84.54XA Infection and inflammatory reaction due to internal left knee prosthesis, initial encounter (principal); I21.3 ST elevation (STEMI) myocardial infarction of unspecified site; E87.1 Hypo-osmolality and hyponatremia; M00.062 Staphylococcal arthritis, left knee; R78.81 Bacteremia; I10 Essential (primary) hypertension; E78.5 Hyperlipidemia, unspecified; I25.10 Atherosclerotic heart disease of native coronary artery without angina pectoris; D64.9 Anemia, unspecified; B95.61 Methicillin susceptible Staphylococcus aureus infection as the cause of diseases classified elsewhere; Z96.652 Presence of left artificial knee joint; E87.6 Hypokalemia; Z79.82 Long term (current) use of aspirin; Z86.73 Personal history of transient ischemic attack (TIA), and cerebral infarction without residual deficits; Z95.5 Presence of coronary angioplasty implant and graft; Z79.02 Long term (current) use of antithrombotics/antiplatelets
CPT/HCPCS: 36415; 36569; 71046; 73560; 80048; 80053; 81001; 83605; 83930; 84443; 84484; 85025; 85027; 85610; 85652; 85730; 86140; 86850; 86900; 86920; 86922; 87015; 87040; 87070; 87075; 87077; 87086; 87088; 87102; 87116; 87149; 87186; 87205; 87206; 89050; 89051; 93005; 93306; 93312; 93320; 93325; 97162; 97166; 97530; 97535; 99251; 99285; 99406; C1776; J7030; J7040; J7050; J7120; P9016; A4216; G0463; J0610; J2405

== ENCOUNTER → 2018-06-21 | Outpatient (CLI) | payer MEDICARE, SELFPAY ==
[2018-06-09 07:33] VITALS: BMI 28.8
[2018-06-21 18:32] LABS: Hematocrit 25.3 % (40-54); Hemoglobin 8.1 g/dl (13.0-16.5); Mean Corpuscular Hgb 27.1 pg (27.0-32.0); Mean Corpuscular Volume 84.6 fL (80-94); Mean Platelet Vol. 9.3 fl (6.2-12.0); Platelet Count 554 K/mm3 (150-450); RBC Distribution Width SD 45.1 fl (35.1-43.9); Red Blood Count 2.99 M/mm3 (4.6-6.2); White Blood Count 5.4 K/mm3 (4.4-11.0)
[2018-06-21 18:33] LABS: Scan Indicated on CBC? Y/N NO
[2018-06-21 18:42] LABS: Erythrocyte Sedimentation Rate 60 mm/hr (0-20)
[2018-06-21 18:44] LABS: ALB/GLOB Ratio 0.6 RATIO (0.9-2.4); AST(SGOT) 21 U/L (15-37); Alanine Aminotransfer ALT/SGPT 8 U/L (16-61); Albumin, Serum 2.7 g/dL (3.2-5.0); Alkaline Phosphatase 100 U/L (45-117); Anion Gap 7 (5-15); BUN 24 mg/dL (7-18); BUN/Creat Ratio 20.2 RATIO (10-20); Calcium,Total 8.5 mg/dL (8.5-10.1); Chloride 102 mmol/L (98-107); Creatinine, Serum 1.19 mg/dL (0.70-1.30); EST Glomerular Filtration Rate 62 mL/min (>60); Est Glom Filt Rate - Afr Amer 75 mL/min (>60); Globulin 4.7 g/dL (2.2-4.2); Glucose 102 mg/dL (74-106); Protein, Total 7.4 g/dL (6.4-8.2); Sodium Level 135 mmol/L (136-145)
== END | disposition home or self-care (01) ==
LOC: LABSPEC 18:26
PROVIDERS: Family Provider Internal Medicine; PCP Internal Medicine; Visit Provider Internal Medicine Infectious Disease
DX: M00.062 Staphylococcal arthritis, left knee (principal); B95.61 Methicillin susceptible Staphylococcus aureus infection as the cause of diseases classified elsewhere
CPT/HCPCS: 80053; 85027; 85652

== ENCOUNTER 2018-06-28 15:44 | Outpatient (RCR) | payer MEDICARE, SELFPAY ==
[2018-06-09 07:33] VITALS: BMI 28.8
[2018-06-14 16:40] LABS: Hematocrit 23.9 % (40-54); Hemoglobin 7.9 g/dl (13.0-16.5); Mean Corp Hgb Conc 33.1 g/gl (32-36); Mean Corpuscular Hgb 27.5 pg (27.0-32.0); Mean Corpuscular Volume 83.3 fL (80-94); Mean Platelet Vol. 9.6 fl (6.2-12.0); Platelet Count 334 K/mm3 (150-450); RBC Distribution Width CV 15.5 % (11.6-14.6); RBC Distribution Width SD 45.8 fl (35.1-43.9); Red Blood Count 2.87 M/mm3 (4.6-6.2); White Blood Count 5.5 K/mm3 (4.4-11.0)
[2018-06-14 16:44] LABS: Scan Indicated on CBC? Y/N NO
[2018-06-14 17:15] LABS: Erythrocyte Sedimentation Rate 63 mm/hr (0-20)
[2018-06-14 17:33] LABS: ALB/GLOB Ratio 0.6 RATIO (0.9-2.4); AST(SGOT) 27 U/L (15-37); Alanine Aminotransfer ALT/SGPT 12 U/L (16-61); Albumin, Serum 2.2 g/dL (3.2-5.0); Alkaline Phosphatase 133 U/L (45-117); Anion Gap 8 (5-15); BUN 13 mg/dL (7-18); Calcium,Total 7.9 mg/dL (8.5-10.1); Chloride 103 mmol/L (98-107); EST Glomerular Filtration Rate 76 mL/min (>60); Est Glom Filt Rate - Afr Amer 92 mL/min (>60); Globulin 3.7 g/dL (2.2-4.2); Glucose 89 mg/dL (74-106); Potassium 3.6 mmol/L (3.5-5.1); Protein, Total 5.9 g/dL (6.4-8.2); Sodium Level 137 mmol/L (136-145)
== END 2018-07-06 23:59 ==
LOC: HHLAB 15:44
PROVIDERS: Family Provider Internal Medicine; PCP Internal Medicine; Referring Provider Internal Medicine Infectious Disease; Visit Provider Internal Medicine Infectious Disease
DX: T84.54XA Infection and inflammatory reaction due to internal left knee prosthesis, initial encounter (principal); B95.61 Methicillin susceptible Staphylococcus aureus infection as the cause of diseases classified elsewhere
CPT/HCPCS: 80053; 85027; 85652

== ENCOUNTER → 2018-06-28 | Outpatient (CLI) | payer MEDICARE, SELFPAY ==
[2018-06-09 07:33] VITALS: BMI 28.8
[2018-06-28 16:10] LABS: Absolute Neutrophil Count 2.3 X10^3/uL (2.0-7.7); Basophil# 0.04 X10^3/uL; Eosinophil# 0.14 X10^3/uL; Eosinophils% 3.5 % (0-5); Hematocrit 26.5 % (40-54); Hemoglobin 8.4 g/dl (13.0-16.5); Lymphocyte % 29.8 % (19-41); Mean Corp Hgb Conc 31.7 g/gl (32-36); Mean Corpuscular Volume 85.2 fL (80-94); Mean Platelet Vol. 8.9 fl (6.2-12.0); Monocyte# 0.36 X10^3/uL; Monocyte% 8.9 % (0-10); Neutrophil # 2.28 X10^3/uL (2.7-7.7); Neutrophil % 56.6 % (47-70); POSITIVE COUNT NO; POSITIVE DIFFERENTIAL NO; POSITIVE MORPHOLOGY NO; Platelet Count 343 K/mm3 (150-450); RBC Distribution Width CV 15.4 % (11.6-14.6); RBC Distribution Width SD 48.3 fl (35.1-43.9); Red Blood Count 3.11 M/mm3 (4.6-6.2)
[2018-06-28 16:23] LABS: Erythrocyte Sedimentation Rate 82 mm/hr (0-20)
[2018-06-28 16:28] LABS: ALB/GLOB Ratio 0.6 RATIO (0.9-2.4); AST(SGOT) 19 U/L (15-37); Alanine Aminotransfer ALT/SGPT 8 U/L (16-61); Albumin, Serum 2.7 g/dL (3.2-5.0); Alkaline Phosphatase 91 U/L (45-117); Anion Gap 5 (5-15); BUN 15 mg/dL (7-18); Calcium,Total 8.3 mg/dL (8.5-10.1); Chloride 106 mmol/L (98-107); EST Glomerular Filtration Rate 76 mL/min (>60); Est Glom Filt Rate - Afr Amer 92 mL/min (>60); Globulin 4.5 g/dL (2.2-4.2); Glucose 79 mg/dL (74-106); Potassium 3.9 mmol/L (3.5-5.1); Protein, Total 7.2 g/dL (6.4-8.2); Sodium Level 138 mmol/L (136-145); Uric Acid 5.1 mg/dL (3.5-7.2)
== END | disposition home or self-care (01) ==
LOC: LABSPEC 15:49
PROVIDERS: Family Provider Internal Medicine; PCP Internal Medicine; Referring Provider Internal Medicine Rheumatology; Visit Provider Internal Medicine Rheumatology
DX: M06.4 Inflammatory polyarthropathy (principal); K90.0 Celiac disease; E78.5 Hyperlipidemia, unspecified; E03.9 Hypothyroidism, unspecified; N40.0 Benign prostatic hyperplasia without lower urinary tract symptoms; M81.0 Age-related osteoporosis without current pathological fracture
CPT/HCPCS: 80053; 84550; 85025; 85652

== ENCOUNTER → 2018-07-05 | Outpatient (CLI) | payer MEDICARE, SELFPAY ==
[2018-06-09 07:33] VITALS: BMI 28.8
[2018-07-05 15:56] LABS: ALB/GLOB Ratio 0.6 RATIO (0.9-2.4); AST(SGOT) 16 U/L (15-37); Alanine Aminotransfer ALT/SGPT 8 U/L (16-61); Albumin, Serum 2.7 g/dL (3.2-5.0); Alkaline Phosphatase 85 U/L (45-117); Anion Gap 6 (5-15); BUN 17 mg/dL (7-18); BUN/Creat Ratio 15.3 RATIO (10-20); Calcium,Total 8.5 mg/dL (8.5-10.1); Chloride 105 mmol/L (98-107); Creatinine, Serum 1.11 mg/dL (0.70-1.30); EST Glomerular Filtration Rate 67 mL/min (>60); Est Glom Filt Rate - Afr Amer 81 mL/min (>60); Globulin 4.5 g/dL (2.2-4.2); Glucose 113 mg/dL (74-106); Hematocrit 26.1 % (40-54); Hemoglobin 8.2 g/dl (13.0-16.5); Mean Corp Hgb Conc 31.4 g/gl (32-36); Mean Corpuscular Hgb 26.8 pg (27.0-32.0); Mean Corpuscular Volume 85.3 fL (80-94); Mean Platelet Vol. 9.3 fl (6.2-12.0); Platelet Count 276 K/mm3 (150-450); Potassium 4.1 mmol/L (3.5-5.1); Protein, Total 7.2 g/dL (6.4-8.2); RBC Distribution Width CV 15.6 % (11.6-14.6); Red Blood Count 3.06 M/mm3 (4.6-6.2); Sodium Level 139 mmol/L (136-145); White Blood Count 4.2 K/mm3 (4.4-11.0)
[2018-07-05 15:59] LABS: Scan Indicated on CBC? Y/N NO
[2018-07-05 16:48] LABS: Erythrocyte Sedimentation Rate 59 mm/hr (0-20)
== END | disposition home or self-care (01) ==
LOC: LABSPEC 14:44
PROVIDERS: Family Provider Internal Medicine; PCP Internal Medicine; Referring Provider Internal Medicine Infectious Disease; Visit Provider Internal Medicine Infectious Disease
DX: M00.062 Staphylococcal arthritis, left knee (principal); B95.61 Methicillin susceptible Staphylococcus aureus infection as the cause of diseases classified elsewhere
CPT/HCPCS: 80053; 85027; 85652

== ENCOUNTER 2018-07-19 13:28 | Outpatient (RCR) | payer MEDICARE, SELFPAY ==
[2018-06-09 07:33] VITALS: BMI 28.8
[2018-07-12 15:14] LABS: ALB/GLOB Ratio 0.7 RATIO (0.9-2.4); AST(SGOT) 18 U/L (15-37); Alanine Aminotransfer ALT/SGPT 7 U/L (16-61); Albumin, Serum 2.8 g/dL (3.2-5.0); Alkaline Phosphatase 78 U/L (45-117); Anion Gap 4 (5-15); BUN 16 mg/dL (7-18); BUN/Creat Ratio 17.4 RATIO (10-20); Calcium,Total 8.4 mg/dL (8.5-10.1); Chloride 106 mmol/L (98-107); Creatinine, Serum 0.92 mg/dL (0.70-1.30); EST Glomerular Filtration Rate 84 mL/min (>60); Est Glom Filt Rate - Afr Amer 101 mL/min (>60); Globulin 4.2 g/dL (2.2-4.2); Glucose 99 mg/dL (74-106); Sodium Level 137 mmol/L (136-145)
[2018-07-12 15:30] LABS: Hematocrit 24.9 % (40-54); Hemoglobin 8.1 g/dl (13.0-16.5); Mean Corp Hgb Conc 32.5 g/gl (32-36); Mean Corpuscular Hgb 27.6 pg (27.0-32.0); Mean Platelet Vol. 9.3 fl (6.2-12.0); Platelet Count 302 K/mm3 (150-450); RBC Distribution Width CV 15.6 % (11.6-14.6); RBC Distribution Width SD 48.4 fl (35.1-43.9); Red Blood Count 2.93 M/mm3 (4.6-6.2); White Blood Count 4.5 K/mm3 (4.4-11.0)
[2018-07-12 15:37] LABS: Scan Indicated on CBC? Y/N NO
[2018-07-12 15:41] LABS: Erythrocyte Sedimentation Rate 55 mm/hr (0-20)
[2018-07-19 13:57] LABS: ALB/GLOB Ratio 0.7 RATIO (0.9-2.4); AST(SGOT) 16 U/L (15-37); Alanine Aminotransfer ALT/SGPT 8 U/L (16-61); Alkaline Phosphatase 83 U/L (45-117); Anion Gap 6 (5-15); BUN 18 mg/dL (7-18); BUN/Creat Ratio 14.9 RATIO (10-20); Calcium,Total 8.4 mg/dL (8.5-10.1); Chloride 107 mmol/L (98-107); Creatinine, Serum 1.21 mg/dL (0.70-1.30); EST Glomerular Filtration Rate 61 mL/min (>60); Est Glom Filt Rate - Afr Amer 74 mL/min (>60); Globulin 4.5 g/dL (2.2-4.2); Glucose 119 mg/dL (74-106); Potassium 3.6 mmol/L (3.5-5.1); Protein, Total 7.5 g/dL (6.4-8.2); Sodium Level 137 mmol/L (136-145)
[2018-07-19 13:58] LABS: Erythrocyte Sedimentation Rate 72 mm/hr (0-20)
[2018-07-19 14:04] LABS: Hematocrit 26.7 % (40-54); Hemoglobin 8.6 g/dl (13.0-16.5); Mean Corp Hgb Conc 32.2 g/gl (32-36); Mean Corpuscular Hgb 27.6 pg (27.0-32.0); Mean Corpuscular Volume 85.6 fL (80-94); Mean Platelet Vol. 9.9 fl (6.2-12.0); Platelet Count 329 K/mm3 (150-450); RBC Distribution Width CV 15.2 % (11.6-14.6); RBC Distribution Width SD 46.1 fl (35.1-43.9); Red Blood Count 3.12 M/mm3 (4.6-6.2); Scan Indicated on CBC? Y/N NO; White Blood Count 3.8 K/mm3 (4.4-11.0)
== END 2018-08-06 23:59 ==
LOC: HHLAB 13:28
PROVIDERS: Family Provider Internal Medicine; PCP Internal Medicine; Referring Provider Internal Medicine Infectious Disease; Visit Provider Internal Medicine Infectious Disease
DX: T84.54XA Infection and inflammatory reaction due to internal left knee prosthesis, initial encounter (principal); B95.61 Methicillin susceptible Staphylococcus aureus infection as the cause of diseases classified elsewhere; I70.1 Atherosclerosis of renal artery; E03.9 Hypothyroidism, unspecified; G47.33 Obstructive sleep apnea (adult) (pediatric); N40.0 Benign prostatic hyperplasia without lower urinary tract symptoms; K90.0 Celiac disease; E66.9 Obesity, unspecified; N52.9 Male erectile dysfunction, unspecified; Z45.2 Encounter for adjustment and management of vascular access device; Z79.2 Long term (current) use of antibiotics; Z79.891 Long term (current) use of opiate analgesic; Z79.02 Long term (current) use of antithrombotics/antiplatelets; Z79.82 Long term (current) use of aspirin; Z72.0 Tobacco use
CPT/HCPCS: 80053; 85027; 85652

== ENCOUNTER 2018-07-21 23:17 | Inpatient (IN) | payer MEDICARE, SELFPAY ==
[2018-07-16 10:45] VITALS: BMI 28.0
[2018-07-21 23:19] VITALS: BP 103/61; PULSE 113; RESP 24; TEMP 37.3; O2SAT 947; BMI 27.8
[2018-07-21 23:28] VITALS: BP 103/61; PULSE 113; RESP 24; TEMP 37.3; O2SAT 947
[2018-07-21 23:29] VITALS: BP 103/61; PULSE 111; RESP 27; O2SAT 947
[2018-07-21 23:31] LABS: Bedside Glucose 132 mg/dL (70-110)
--- NOTE | 2018-07-21 23:40 | RAD_ITS ---
STUDY: X-RAY CHEST REASON FOR EXAM: Male, 83 years old. Weakness, general illness, dyspnea TECHNIQUE: Single AP portable view of the chest. COMPARISON: 06/05/2018 FINDINGS: There are superimposed monitor leads. Stable mild elevation right hemidiaphragm. There are areas of hyperinflation. Stable atelectatic changes left base. There is no demonstrated pleural abnormality. Normal size heart. Normal mediastinum and alberto. Normal visualized pulmonary arteries. There is atherosclerotic calcification of the aortic arch with tortuosity. There are diffuse degenerative changes of the visualized thoracic spine. There is degenerative osteoarthritis of the bilateral shoulders. There is demineralization of osseous structures. There is no demonstrated abnormality of the visualized soft tissue structures of the upper abdomen. RAD/Chest 1 View (Portable) IMPRESSION: COPD, left basilar atelectasis are stable findings. No acute cardiopulmonary disease. No significant interval change. Electronically Signed: Freida Zaman MD at 0:17 EDT , Service support ,
--- NOTE | 2018-07-21 23:40 | EKG12_ITS ---
Test Reason : Blood Pressure : / mmHG Vent. Rate : 105 BPM Atrial Rate : 105 BPM P-R Int : 222 ms QRS Dur : 080 ms QT Int : 328 ms P-R-T Axes : 082 024 055 degrees QTc Int : 433 ms Sinus tachycardia with 1st degree A-V block Septal infarct , age undetermined Abnormal ECG Confirmed by JUNE GOMEZ ([id number]), content editor ASYA REAVES ([id number]) on 07/26/2018 2:51:21 PM Referred By: Andi Barakat Confirmed By:GABRIEL GOMEZ
[2018-07-21] MEDS: 0.9% Normal Saline 1,000 ML 150 ML IV (23:54)
[2018-07-22] VITALS (14 sets, daily range): BP systolic 89–160; BP diastolic 53–76; PULSE 67–98; RESP 16–24; TEMP 36.1–37.7; O2SAT 94–99; BMI 26.2; BMI 26.3
[2018-07-22] LABS: Absolute Lymphocyte Count 0.24 X10^3/ul (0.83-4.51); Absolute Neutrophil Count 6.9 X10^3/uL (2.0-7.7); Basophil# 0.01 X10^3/uL; Basophil% 0.1 % (0-1); Eosinophil# 0.06 X10^3/uL; Eosinophils% 0.8 % (0-5); Hemoglobin 9.2 g/dl (13.0-16.5); Lymphocyte # 0.24 X10^3/ul (4.0); Lymphocyte % 3.2 % (19-41); Mean Corp Hgb Conc 32.9 g/gl (32-36); Mean Corpuscular Hgb 27.8 pg (27.0-32.0); Mean Corpuscular Volume 84.6 fL (80-94); Mean Platelet Vol. 9.1 fl (6.2-12.0); Monocyte# 0.26 X10^3/uL; Monocyte% 3.4 % (0-10); Neutrophil # 6.93 X10^3/uL (2.7-7.7); Platelet Count 311 K/mm3 (150-450); RBC Distribution Width CV 15.6 % (11.6-14.6); RBC Distribution Width SD 48.3 fl (35.1-43.9); Red Blood Count 3.31 M/mm3 (4.6-6.2); White Blood Count 7.5 K/mm3 (4.4-11.0)
[2018-07-22 00:08] LABS: Differential Indicated SCAN CRITERIA MET; POSITIVE COUNT NO; POSITIVE DIFFERENTIAL YES; POSITIVE MORPHOLOGY YES
[2018-07-22 00:11] LABS: AST(SGOT) 19 U/L (15-37); Alanine Aminotransfer ALT/SGPT 7 U/L (16-61); Albumin, Serum 2.9 g/dL (3.2-5.0); Alkaline Phosphatase 74 U/L (45-117); Anion Gap 10 (5-15); BUN 23 mg/dL (7-18); BUN/Creat Ratio 19.5 RATIO (10-20); Bilirubin, Direct 0.09 mg/dL (0.00-0.30); Calcium,Total 7.6 mg/dL (8.5-10.1); Chloride 106 mmol/L (98-107); Creatinine, Serum 1.18 mg/dL (0.70-1.30); EST Glomerular Filtration Rate 63 mL/min (>60); Est Glom Filt Rate - Afr Amer 76 mL/min (>60); Globulin 4.4 g/dL (2.2-4.2); Glucose 129 mg/dL (74-106); Potassium 4.3 mmol/L (3.5-5.1); Protein, Total 7.3 g/dL (6.4-8.2); Sodium Level 137 mmol/L (136-145); Thyroid Stim Hormone (TSH) 1.44 uIU/mL (0.358-3.74)
[2018-07-22 00:14] LABS: Differential Comment SCANNED; Lactic Acid 2.3 mmol/L (0.4-2.0)
--- NOTE | 2018-07-22 00:14 | ED.RN ---
PT LACTIC 2.3. DR. YOLANDA BRAVO.
--- NOTE | 2018-07-22 00:46 | ED.RN ---
PT ATTEMPTED TO GIVE URINE SAMPLE. UNABLE TO URINATE AT THIS TIME. PT REFUSING STRAIGHT CATH. DR. GUERRERO INFORMED.
[2018-07-22] MEDS: Acetaminophen 325 MG Tablet 650 MG PO (00:57)
--- NOTE | 2018-07-22 01:00 | ED.DCSUM_ITS ---
- ER Visit Summary Date of Service: 07/22/18 Chief Complaint: Diarrhea, weakness, confusion History of Present Illness: The patient is a 83 M who had a knee replacement in February and then a heart cath in May. He developed fevers and was noted to have positive blood cultures. This turned into a knee infection. His knee was washed out and is been on IV Ancef until yesterday. He was seen by orthopedics this morning and knee looks good. PICC line was pulled this afternoon. He started on p.o. Keflex and rifampin this afternoon. Patient developed diarrhea earlier this evening. He states he does feel sleepy and tired with no energy. He denies chest pain or shortness of breath. He had low-grade fever at home. Past history is significant for C. difficile, hypothyroidism, aortic stenosis, CVA, coronary disease, hypertension, high cholesterol. Physical Examination: Blood pressure is 103/61, temperature 99.2, heart rate 113, respiratory rate 24, pulse ox 94% on room air. Patient sitting upright in bed. He is nontoxic appearing. Heart is regular rate and rhythm with 2/6 murmur noted. Lung sounds clear. Abdomen is soft and nontender. Hypoactive but present bowel sounds are noted. Extremities are nontender. Neuro exam reveals no focal deficits. Test Results: Portable chest x-ray shows COPD changes no acute disease. Head CT shows chronic involutional changes. No acute pathology. EKG is sinus at 105 with no acute ischemia. CBC was normal white count with 92% neutrophils. Hemoglobin is 9.2. Chemistry studies reveal glucose of 129 and a BUN of 23. His TSH is normal. LFTs normal. Lactate is 2.3. Blood cultures have been sent. Urinalysis and stool studies have been ordered but patient has not been able to provide a sample. Emergency Department Course and Treatment: Patient is given IV fluids. He has not been hypotensive here. He is given p.o. Tylenol once CT returns unremarkable. Patient has had significant sequelae of positive blood cultures in the past and I recommended hospitalization for close monitoring, checking urine and stool, and getting prelim results on blood cultures. Patient and are in agreement with this. I will speak with the hospitalist. Treatment Plan: [] Disposition: Admit Impression: 1. Sirs 2. Reported diarrhea This note was generated with [employer] software. It may contain incorrect words, spelling, and punctuation that were not noted in review of the chart prior to signing ED Disposition - Plan for ED Patient: Referrals: Ximena Haines MD [Primary Care Provider] -
--- NOTE | 2018-07-22 01:09 | HP.PCM_ITS ---
Problem List (1) Diarrhea Status: Acute (2) Essential (primary) hypertension Status: Chronic History of Present Illness Date of Admission: 07/22/18 Chief Complaint: Diarrhea The patient is a 83 year old M with a significant history of bacteremia and prosthetic left knee infection who presented to the emergency department with diarrhea. Associated with symptoms is lethargy; confusion and chills. Importantly patient was receiving IV Ancef through PICC line for Staphylococcus infection of prosthetic left knee. The PICC was discontinued and IV Ancef also discontinued on the same day of presentation. Patient was subsequently started on Keflex and rifampin by Dr.Marcantonio Vicente, ID specialist outpatient. On the same day of presentation and for the same day of starting p.o. medication reportedly patient had a normal bowel movement in the morning and then 2 loose stools in the afternoon after starting p.o. antibiotics. At emergency department patient was found to have tachycardia and tachypnea. 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) Non-rheumatic aortic stenosis (Chronic) Essential (primary) hypertension (Chronic) Hyperlipidemia (Chronic) Medical History: Medical History (Last Reviewed 07/22/18 @ 05:48 by Andi Barakat MD) Atherosclerotic heart disease of [place] coronary artery without angina pectoris (Chronic) I25.10 BILL to mid LAD w/ 2.75 X 20 Synergy 05/31/18 POBA-ISR mid-LAD 06/02/18 Hemorrhagic cerebrovascular accident (CVA) (Chronic) Onset Date: 10/2015 I61.9 Non-rheumatic aortic stenosis (Chronic) I35.0 Essential (primary) hypertension (Chronic) I10 Hyperlipidemia (Chronic) E78.5 Anemia D64.9 BPH (benign prostatic hyperplasia) N40.0 Carotid bruit R09.89 Celiac disease K90.0 DDD (degenerative disc disease) Erectile dysfunction N52.9 Hypothyroidism E03.9 Inflammatory arthropathy M19.90 Neoplasm of skin D49.2 Obesity E66.9 Obstructive sleep apnea G47.33 Osteoporosis M81.0 Renal artery stenosis I70.1 Smokeless tobacco use Z72.0 Allergies lidocaine Allergy (Verified 07/21/18 23:18) Hives Home Medications: Ambulatory Orders Medication Instructions Recorded Finasteride [Proscar] 5 mg PO QHS 09/21/13 Gabapentin [Neurontin] 300 mg PO TIDCM 09/21/13 Levothyroxine Sodium [Synthroid] 112 mcg PO QHS 09/21/13 Pravastatin [Pravachol] 80 mg PO DAILY 09/21/13 Tamsulosin HCl [Flomax] 0.4 mg PO QHS 09/21/13 Hydroxychloroquine [Plaquenil] 200 mg PO BIDCM 10/25/15 L.acidoph,Paracasei, B.lactis 1 ea PO DAILY 10/25/15 [Probiotic] risedronate 150 mg tablet 150 mg PO QMONTH 84 Days #3 tab 04/27/18 tramadol 50 mg tablet 50 mg PO BID PRN PRN 30 Days #60 04/27/18 tab Cholecalciferol (Vitamin D3) 5,000 unit PO QHS 06/05/18 [Vitamin D3] Cyanocobalamin (Vitamin B-12) 1,000 mcg PO BID 06/05/18 [Vitamin B-12] Ferrous Sulfate [Slow Release Iron] 65 mg PO BID 06/05/18 Senna/Docusate Sodium [Senokot-S] 2 tab PO BID PRN PRN tab 06/12/18 metoprolol succinate ER 25 mg 12.5 mg PO LUNCH tab 07/16/18 tablet,extended release 24 hr Nifedipine [Nifedipine ER] 30 mg PO DAILY PRN 07/22/18 Surgical History: Surgical History (Last Reviewed 07/22/18 @ 05:48 by Andi Barakat MD) History of coronary artery stent placement (Resolved) Onset Date: 05/31/18 Z95.5 BILL to mid LAD w/ 2.75 X 20 Synergy 05/31/18 POBA-ISR mid-LAD 06/02/18 History of cataract surgery Z98.49 History of knee replacement Z96.659 History of tonsillectomy and adenoidectomy Z98.890 Surgical History: total knee arthroplasty, - - Coronary stent placement May 2018 Psychiatric History: No pertinent psych hx Smoking Status: Never smoker - *Family History Maternal Family History: Family History (Last Reviewed 07/22/18 @ 05:48 by Andi Barakat MD) Brother Myocardial infarction, Onset Age: 60 Brother Myocardial infarction, Onset Age: 65 Father Myocardial infarction, Onset Age: 60 History Items: No pertinent history Paternal Family History: Family History (Last Reviewed 07/22/18 @ 05:48 by Andi Barakat MD) Brother Myocardial infarction, Onset Age: 60 Brother Myocardial infarction, Onset Age: 65 Father Myocardial infarction, Onset Age: 60 History Items: Heart Disease Review of Systems Constitutional: Reports: Chills. Denies: Fever, Weight Change HEENT: Denies: Head Aches, Sinus Congestion, Sinus Drainage Cardiovascular: Denies: Chest Pain, Palpitations Respiratory: Denies: Cough, Shortness of breath at rest, Sputum production Gastrointestinal: Reports: Diarrhea. Denies: Abdominal Pain, Nausea, Vomiting Genitourinary: Denies: Dysuria Musculoskeletal: Denies: Joint Pain, Joint Tenderness Skin: Denies: Rash, Wounds Neurological: Reports: Confusion. Denies: Focal weakness, Numbness, Tingling Psychiatric: Denies: Anxiety, Depression, Homicidal Ideations, Suicidal Ideations Hematologic/ Lymphatic: Denies: Easy Bruising, Easy Bleeding VTE Information - Inpt Only VTE Present on Admission: No VTE Mechan Device Prophylaxis: None VTE Pharm Prophylaxis ordered?: Yes Patient Problems: Active and Suspected Problems (Last Reviewed 07/16/18 @ 11:43 by João Victoria MD) Diarrhea (Acute) - Physical Exam General: Alert, Oriented x3, Cooperative HEENT: Atraumatic, PERRLA, EOMI, Normocephalic Neck: Supple, No JVD, Negative Carotid Bruits Lungs: Tachypneic Cardiovascular: No murmurs, Tachycardic Abdomen: Bowel Sounds Present, Soft, Non Tender Extremities: No edema, Capillary Refill Less than 3 Seconds Skin: No breakdown, - - Left knee with surgical shraddha without any erythema; swelling or tenderness. Musculoskeletal: No Tenderness to Palpation of Joints or Extremities Neurological: Neuro grossly intact Psych/Mental Status: Normal Affect, Appropriate Vital Signs Temp Pulse Resp BP Pulse Ox 99.2 F H 98 24 H 105/64 99 07/21/18 23:28 07/22/18 00:59 07/22/18 00:59 07/22/18 00:59 07/22/18 00:59 Oxygen Delivery Method Room Air Weight: 78.2 kg Body Mass Index (BMI) 27.8 Finger Stick Blood Glucose 99 Laboratory Tests Past 24 Hrs 07/21/18 07/21/18 07/21/18 23:30 23:30 23:30 WBC 7.5 RBC 3.31 L Hgb 9.2 L Hct 28.0 L MCV 84.6 MCH 27.8 MCHC 32.9 RDW 15.6 H RDW Differential 48.3 H Plt Count 311 MPV 9.1 Immature Gran % (Auto) 0.500 Neut % (Auto) 92.0 H Lymph % (Auto) 3.2 L [place] % (Auto) 3.4 Eos % (Auto) 0.8 Baso % (Auto) 0.1 Absolute Neuts (auto) 6.9 Absolute Lymphs (auto) 0.24 L Total Counted Not Reportable Differential Comment SCANNED Sodium 137 Potassium 4.3 Chloride 106 Carbon Dioxide 21.0 Anion Gap 10 BUN 23 H Creatinine 1.18 Estim Creat Clear Calc 42.80 Est GFR (MDRD) Af Amer 76 Est GFR (MDRD) Non-Af 63 BUN/Creatinine Ratio 19.5 Glucose 129 H Lactic Acid 2.3 H Calcium 7.6 L Total Bilirubin 0.30 Direct Bilirubin 0.09 AST 19 ALT 7 L Alkaline Phosphatase 74 Total Protein 7.3 Albumin 2.9 L Globulin 4.4 H TSH 1.44 POC Glucose 07/21/18 23:22 POC Glucose 132 H Assessment/Plan All Active Problems (Last Reviewed 07/16/18 @ 11:43 by João Victoria MD) Diarrhea (Acute) Staph infection (Acute) History of coronary artery stent placement (Resolved 05/31/18) Dehydration (Resolved) Diarrhea (Resolved) Generalized weakness (Resolved) Joint pain (Resolved) Positive blood cultures (Resolved) The patient is a 83 year old M with a significant history of bacteremia and prosthetic left knee infection who presented to the emergency department with diarrhea after antibiotics were changed from IV to p.o; and also with SIRS criteria. SIRS Patient with tachycardia and tachypnea but with no clear source of acute infection Received IV fluids at the emergency department. Urinalysis was unremarkable. Blood culture x2 was ordered at emergency department Keflex and rifampin continued Acute diarrhea Initially vancomycin p.o. was started for probable C. difficile. However patient has no fever or elevated white count. C. difficile is unlikely. Likely due to antibiotic intolerance. Will continue Keflex and rifampin for now and see if the patient tolerates. Trend CBC and BMP. Chronic Prosthetic left knee infection Keflex and rifampin as above. Status post IV Ancef. DVT Prophylaxis Subcutaneous Lovenox. Code Visit OBSV E&M: 44864 Initial observation care L3
[2018-07-22 01:59] LABS: Squamous Epithelial Cells - UA 0 SEEN /hpf (0-5)
[2018-07-22 02:04] LABS: Color, Urine Yellow (Yellow); Glucose, Dipstick Normal (Normal); Ketone-Dipstick 5 mg/dl (Negative); Leukocyte Esterase-Dipstick 25 /ul (Negative); Nitrite-Dipstick Negative (Negative); Occult Blood-Urine 10 /ul (Negative); Protein-Dipstick 30 mg/dl (Negative); Specific Gravity, Urine 1.015 (1.002-1.030); Urine Bilirubin Dipstick Negative (Negative); Urine Clarity Clear (Clear); Urine Urobilinogen Normal (Normal)
[2018-07-22 02:12] LABS: Bacteria RARE /hpf (None Seen); Hyaline Cast 0-5 SEEN /lpf (0-5); Mucous, Urine 2+ /hpf (<or=2+); Red Blood Cells-Urine 0-5 SEEN /hpf (0-5); White Blood Cells 0-5 SEEN /hpf (0-5)
[2018-07-22 03:45] LABS: Reflex Lactate? Y
[2018-07-22 04:26] LABS: Absolute Lymphocyte Count 0.27 X10^3/ul (0.83-4.51); Absolute Neutrophil Count 5.8 X10^3/uL (2.0-7.7); Basophil# 0.01 X10^3/uL; Basophil% 0.2 % (0-1); Eosinophil# 0.01 X10^3/uL; Eosinophils% 0.2 % (0-5); Hematocrit 23.7 % (40-54); Hemoglobin 7.8 g/dl (13.0-16.5); Lymphocyte # 0.27 X10^3/ul (4.0); Lymphocyte % 4.2 % (19-41); Mean Corp Hgb Conc 32.9 g/gl (32-36); Mean Corpuscular Hgb 27.9 pg (27.0-32.0); Mean Corpuscular Volume 84.6 fL (80-94); Mean Platelet Vol. 8.8 fl (6.2-12.0); Monocyte# 0.38 X10^3/uL; Monocyte% 5.9 % (0-10); Neutrophil # 5.75 X10^3/uL (2.7-7.7); Neutrophil % 89.2 % (47-70); Platelet Count 262 K/mm3 (150-450); RBC Distribution Width CV 15.9 % (11.6-14.6); RBC Distribution Width SD 49.4 fl (35.1-43.9); White Blood Count 6.4 K/mm3 (4.4-11.0)
[2018-07-22 04:30] LABS: Differential Indicated SCAN CRITERIA MET; POSITIVE COUNT NO; POSITIVE DIFFERENTIAL YES; POSITIVE MORPHOLOGY NO
[2018-07-22 04:45] LABS: Anion Gap 7 (5-15); BUN 24 mg/dL (7-18); BUN/Creat Ratio 25.7 RATIO (10-20); Calcium,Total 7.5 mg/dL (8.5-10.1); Chloride 109 mmol/L (98-107); Creatinine, Serum 0.93 mg/dL (0.70-1.30); EST Glomerular Filtration Rate 82 mL/min (>60); Est Glom Filt Rate - Afr Amer 99 mL/min (>60); Estimated Creatinine Clearance 56.27 ml/min; Glucose 103 mg/dL (74-106); Sodium Level 138 mmol/L (136-145)
[2018-07-22 04:47] LABS: Lactic Acid 1.4 mmol/L (0.4-2.0)
[2018-07-22 05:05] LABS: Differential Comment SCANNED
[2018-07-22] MEDS: Cephalexin 500 MG Capsule PO ×3 (06:22→22:27)
[2018-07-22] MEDS: Levothyroxine 112 MCG Tablet PO (06:22)
--- NOTE | 2018-07-22 09:09 | CASEMGMT ---
Patient has a Healthcare POA and it is on file at [facility]. He has a Healthcare LW and is aware it is not on file at [facility]. Madeline PHIPPS MSW
[2018-07-22] MEDS: Hydroxychloroquine 200 MG Tablet PO ×2 (09:10→17:22)
[2018-07-22] MEDS: Gabapentin 300 MG Capsule PO ×3 (09:10→17:22)
[2018-07-22] MEDS: Cyanocobalamin 500 MCG Tablet 1000 MCG PO ×2 (09:12→22:28)
[2018-07-22] MEDS: Enoxaparin 40 MG/0.4 ML Syringe SC (09:14)
--- NOTE | 2018-07-22 09:50 | CASEMGMT ---
RN CM FRONT COUNTER ATTENDANT CM to room to meet with patient for initial transition planning/care coordination assessment. AMANDA LAND introduced self and role at [facility]. Pt voices understanding and consents to assessment at this time. Pt resting in bed in no distress at this time. Pt is A/O at this time and answers all questions appropriately. Care providers, pharmacy, and demographics verified at this time. PCP: [facility] Specialists: Eliza-ortho, Jules--ID. [facility] Pres[facility] Benef[facility]: Yes Living Will/HPOA: Pt does not currently have LW/HCPOA and declines info at this time. LNOK: Living Arrangements: Lives with in a one-story home. States there are 16 stairs to a Man-cave that he states he navigates well. States is independent with personal ADL's and he and his share home mgmt tasks. States, I was just out weed-eating a couple days ago. Transportation: Pt states drives self and states no transportation concerns at this time. able to drive him on d/c. DME: Denies using any DME and denies needs. Has a walker that he does not need to use anymore. HHC/SNF: No history of SNF. Had [facility] for RN/IV atb's but was just discharged recently. Call [facility] to Erum [facility]. She confirms pt has been discharged from their services, as of 07/21/18. Pt wishes to return home and states has no concerns with going home at time of discharge. Pt states does not smoke or drink ETOH. States he does chew tobacco. CM to follow for discharge planning/needs. Pt voices no further concerns/needs at this time. Advised pt to ask for CM if any further questions/concerns/needs arise. Voices understanding. PLAN: Home w/spousal support and discharge plans in place. Gene CULP RN, CM
[2018-07-22] MEDS: rifAMPin 300 MG Capsule 600 MG PO (10:24)
[2018-07-22] MEDS: Metoprolol(XL)Succ 25 MG Tablet 12.5 MG PO (12:10)
[2018-07-22] MEDS: Ferrous Sulfate 325 MG Tablet PO ×2 (12:10→17:23)
--- NOTE | 2018-07-22 12:55 | PCM.PROGNOTE ---
<Naman Carrasco - Last Filed: 07/22/18 12:55> Patient Problems: Active and Suspected Problems (Last Reviewed 07/22/18 @ 05:48 by Andi Barakat MD) Diarrhea (Acute) Subjective: Patient resting comfortably in bed NAD, A/Ox3, does not seem confused at all now. He has no pain/discomfort/erythema/irriation at his PICC location or of his left knee. Mild edema around the left knee. No fever/chills. No SOB/cough/abdominal pain/nausea/vomiting. He has had several days of loose stools and does have a hx of Cdiff, however no abdominal pain and no distention, bloating, blood in stool. He attempted to provide a sample this morning and could not provide a BM and has not since. He completed 6 weeks of Ancef for his infected left knee. Yesterday PICC was pulled and he started Keflex. He has been on Rifampin for months as well. - Physical Exam General: Alert, Oriented x3, Cooperative HEENT: Atraumatic, PERRLA, EOMI, Normocephalic Neck: Supple, No JVD, Negative Carotid Bruits Lungs: Clear to auscultation, Normal air movement Cardiovascular: Regular rate, No murmurs Abdomen: Bowel Sounds Present, Soft, Non Tender Extremities: No edema, Capillary Refill Less than 3 Seconds Skin: No rashes, No breakdown Musculoskeletal: No Tenderness to Palpation of Joints or Extremities Neurological: Cranial nerves II-XII grossly intact Psych/Mental Status: Normal Affect, Appropriate, Alert and oriented to time, place, person, mood and affect Vital Signs Temp Pulse Resp BP Pulse Ox 97.0 F L 85 16 112/56 L 95 07/22/18 12:00 07/22/18 12:10 07/22/18 12:00 07/22/18 12:10 07/22/18 12:00 Oxygen Delivery Method Room Air Weight: 167 lb 12.348 oz Body Mass Index (BMI) 26.2 Finger Stick Blood Glucose 99 Intake and Output for Last 24 Hours 07/20/18 07/21/18 07/22/18 23:59 23:59 23:59 Intake Total 700 / 700 Balance 700 / 700 Microbiology Past 72 Hours 07/21/18 11:52 Stool Lactoferrin - Final Stool Laboratory Tests Past 24 Hrs 07/21/18 07/21/18 07/21/18 23:30 23:30 23:30 WBC 7.5 RBC 3.31 L Hgb 9.2 L Hct 28.0 L MCV 84.6 MCH 27.8 MCHC 32.9 RDW 15.6 H RDW Differential 48.3 H Plt Count 311 MPV 9.1 Immature Gran % (Auto) 0.500 Neut % (Auto) 92.0 H Lymph % (Auto) 3.2 L [place] % (Auto) 3.4 Eos % (Auto) 0.8 Baso % (Auto) 0.1 Absolute Neuts (auto) 6.9 Absolute Lymphs (auto) 0.24 L Total Counted Not Reportable Differential Comment SCANNED Sodium 137 Potassium 4.3 Chloride 106 Carbon Dioxide 21.0 Anion Gap 10 BUN 23 H Creatinine 1.18 Estim Creat Clear Calc 42.80 Est GFR (MDRD) Af Amer 76 Est GFR (MDRD) Non-Af 63 BUN/Creatinine Ratio 19.5 Glucose 129 H Lactic Acid 2.3 H Calcium 7.6 L Total Bilirubin 0.30 Direct Bilirubin 0.09 AST 19 ALT 7 L Alkaline Phosphatase 74 Total Protein 7.3 Albumin 2.9 L Globulin 4.4 H TSH 1.44 Urine Color Urine Clarity Urine pH Ur Specific [place] Urine Protein Urine Glucose (UA) Urine Ketones Urine Occult Blood Urine Nitrite Urine Bilirubin Urine Urobilinogen Ur Leukocyte Esterase Urine RBC Urine WBC Ur Squamous Epith Cells Urine Bacteria Hyaline Casts Urine Mucus 07/22/18 07/22/18 07/22/18 01:50 04:05 04:05 WBC 6.4 RBC 2.80 L Hgb 7.8 L Hct 23.7 L MCV 84.6 MCH 27.9 MCHC 32.9 RDW 15.9 H RDW Differential 49.4 H Plt Count 262 MPV 8.8 Immature Gran % (Auto) 0.300 Neut % (Auto) 89.2 H Lymph % (Auto) 4.2 L [place] % (Auto) 5.9 Eos % (Auto) 0.2 Baso % (Auto) 0.2 Absolute Neuts (auto) 5.8 Absolute Lymphs (auto) 0.27 L Total Counted Not Reportable Differential Comment SCANNED Sodium 138 Potassium 4.0 Chloride 109 H Carbon Dioxide 22.0 Anion Gap 7 BUN 24 H Creatinine 0.93 Estim Creat Clear Calc 56.27 Est GFR (MDRD) Af Amer 99 Est GFR (MDRD) Non-Af 82 BUN/Creatinine Ratio 25.7 H Glucose 103 Lactic Acid Calcium 7.5 L Total Bilirubin Direct Bilirubin AST ALT Alkaline Phosphatase Total Protein Albumin Globulin TSH Urine Color Yellow Urine Clarity Clear Urine pH 6.0 Ur Specific [place] 1.015 Urine Protein 30 H Urine Glucose (UA) Normal Urine Ketones 5 H Urine Occult Blood 10 H Urine Nitrite Negative Urine Bilirubin Negative Urine Urobilinogen Normal Ur Leukocyte Esterase 25 H Urine RBC 0-5 SEEN Urine WBC 0-5 SEEN Ur Squamous Epith Cells 0 SEEN Urine Bacteria RARE Hyaline Casts 0-5 SEEN Urine Mucus 2+ 07/22/18 04:05 WBC RBC Hgb Hct MCV MCH MCHC RDW RDW Differential Plt Count MPV Immature Gran % (Auto) Neut % (Auto) Lymph % (Auto) [place] % (Auto) Eos % (Auto) Baso % (Auto) Absolute Neuts (auto) Absolute Lymphs (auto) Total Counted Differential Comment Sodium Potassium Chloride Carbon Dioxide Anion Gap BUN Creatinine Estim Creat Clear Calc Est GFR (MDRD) Af Amer Est GFR (MDRD) Non-Af BUN/Creatinine Ratio Glucose Lactic Acid 1.4 Calcium Total Bilirubin Direct Bilirubin AST ALT Alkaline Phosphatase Total Protein Albumin Globulin TSH Urine Color Urine Clarity Urine pH Ur Specific [place] Urine Protein Urine Glucose (UA) Urine Ketones Urine Occult Blood Urine Nitrite Urine Bilirubin Urine Urobilinogen Ur Leukocyte Esterase Urine RBC Urine WBC Ur Squamous Epith Cells Urine Bacteria Hyaline Casts Urine Mucus POC Glucose 07/21/18 23:22 POC Glucose 132 H Medical Necessity - Tobacco Use Smoking Status: Never smoker Assessment/Plan All Active Problems (Last Reviewed 07/22/18 @ 05:48 by Andi Barakat MD) Diarrhea (Acute) Staph infection (Acute) History of coronary artery stent placement (Resolved 05/31/18) Dehydration (Resolved) Diarrhea (Resolved) Generalized weakness (Resolved) Joint pain (Resolved) Positive blood cultures (Resolved) 1. Acute metabolic encephalopathy - SIRS at presentation. Improved. PICC sight and L knee appear uninfected. Possible Abx reaction. Received keflex this AM with no issues. Follow blood cultures. No fever/leukocytosis. CXR neg, UA neg. Check stool studies -hx of diff and on long course of abx. 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 continue current abx plan. F/u With Dr. Vicente. 3. HTN - stable 4. HLD - statin 5. BPH - flomax DVT ppx: lovenox DC planning: PTOT This patient was seen by Naman Carrasco PA-C under the supervision of Dr. Bryan. <Jesus Bryan - Last Filed: 07/22/18 15:57> Subjective: No further diarrhea. - Physical Exam General: Alert, Cooperative HEENT: Atraumatic, Normocephalic Neck: No Nodes, Thyroid Normal Size and Texture Lungs: Clear to auscultation, Normal air movement, No rhonchi, No wheeze Cardiovascular: Regular rate, Regular Rhythm, Normal S1, Normal S2, No murmurs Abdomen: Bowel Sounds Present, Soft, Non Tender, Non-Distended Extremities: No edema, No Calf Tenderness Skin: No rashes, No breakdown Psych/Mental Status: Normal Affect, Appropriate Vital Signs Temp Pulse Resp BP Pulse Ox 36.1 C L 85 16 112/56 L 95 07/22/18 12:00 07/22/18 12:10 07/22/18 12:00 07/22/18 12:10 07/22/18 12:00 Oxygen Delivery Method Room Air Weight: 76.1 kg Body Mass Index (BMI) 26.2 Finger Stick Blood Glucose 99 Intake and Output for Last 24 Hours 07/20/18 07/21/18 07/22/18 23:59 23:59 23:59 Intake Total 700 / 700 Balance 700 / 700 Microbiology Past 72 Hours 07/21/18 11:52 C. difficile DNA Amplification - Final Stool 07/21/18 11:52 Stool Lactoferrin - Final Stool Laboratory Tests Past 24 Hrs 07/21/18 07/21/18 07/21/18 23:30 23:30 23:30 WBC 7.5 RBC 3.31 L Hgb 9.2 L Hct 28.0 L MCV 84.6 MCH 27.8 MCHC 32.9 RDW 15.6 H RDW Differential 48.3 H Plt Count 311 MPV 9.1 Immature Gran % (Auto) 0.500 Neut % (Auto) 92.0 H Lymph % (Auto) 3.2 L [place] % (Auto) 3.4 Eos % (Auto) 0.8 Baso % (Auto) 0.1 Absolute Neuts (auto) 6.9 Absolute Lymphs (auto) 0.24 L Total Counted Not Reportable Differential Comment SCANNED Sodium 137 Potassium 4.3 Chloride 106 Carbon Dioxide 21.0 Anion Gap 10 BUN 23 H Creatinine 1.18 Estim Creat Clear Calc 42.80 Est GFR (MDRD) Af Amer 76 Est GFR (MDRD) Non-Af 63 BUN/Creatinine Ratio 19.5 Glucose 129 H Lactic Acid 2.3 H Calcium 7.6 L Total Bilirubin 0.30 Direct Bilirubin 0.09 AST 19 ALT 7 L Alkaline Phosphatase 74 Total Protein 7.3 Albumin 2.9 L Globulin 4.4 H TSH 1.44 Urine Color Urine Clarity Urine pH Ur Specific [place] Urine Protein Urine Glucose (UA) Urine Ketones Urine Occult Blood Urine Nitrite Urine Bilirubin Urine Urobilinogen Ur Leukocyte Esterase Urine RBC Urine WBC Ur Squamous Epith Cells Urine Bacteria Hyaline Casts Urine Mucus 07/22/18 07/22/18 07/22/18 01:50 04:05 04:05 WBC 6.4 RBC 2.80 L Hgb 7.8 L Hct 23.7 L MCV 84.6 MCH 27.9 MCHC 32.9 RDW 15.9 H RDW Differential 49.4 H Plt Count 262 MPV 8.8 Immature Gran % (Auto) 0.300 Neut % (Auto) 89.2 H Lymph % (Auto) 4.2 L [place] % (Auto) 5.9 Eos % (Auto) 0.2 Baso % (Auto) 0.2 Absolute Neuts (auto) 5.8 Absolute Lymphs (auto) 0.27 L Total Counted Not Reportable Differential Comment SCANNED Sodium 138 Potassium 4.0 Chloride 109 H Carbon Dioxide 22.0 Anion Gap 7 BUN 24 H Creatinine 0.93 Estim Creat Clear Calc 56.27 Est GFR (MDRD) Af Amer 99 Est GFR (MDRD) Non-Af 82 BUN/Creatinine Ratio 25.7 H Glucose 103 Lactic Acid Calcium 7.5 L Total Bilirubin Direct Bilirubin AST ALT Alkaline Phosphatase Total Protein Albumin Globulin TSH Urine Color Yellow Urine Clarity Clear Urine pH 6.0 Ur Specific [place] 1.015 Urine Protein 30 H Urine Glucose (UA) Normal Urine Ketones 5 H Urine Occult Blood 10 H Urine Nitrite Negative Urine Bilirubin Negative Urine Urobilinogen Normal Ur Leukocyte Esterase 25 H Urine RBC 0-5 SEEN Urine WBC 0-5 SEEN Ur Squamous Epith Cells 0 SEEN Urine Bacteria RARE Hyaline Casts 0-5 SEEN Urine Mucus 2+ 05/16/19 04:05 WBC RBC Hgb Hct MCV MCH MCHC RDW RDW Differential Plt Count MPV Immature Gran % (Auto) Neut % (Auto) Lymph % (Auto) [place] % (Auto) Eos % (Auto) Baso % (Auto) Absolute Neuts (auto) Absolute Lymphs (auto) Total Counted Differential Comment Sodium Potassium Chloride Carbon Dioxide Anion Gap BUN Creatinine Estim Creat Clear Calc Est GFR (MDRD) Af Amer Est GFR (MDRD) Non-Af BUN/Creatinine Ratio Glucose Lactic Acid 1.4 Calcium Total Bilirubin Direct Bilirubin AST ALT Alkaline Phosphatase Total Protein Albumin Globulin TSH Urine Color Urine Clarity Urine pH Ur Specific [place] Urine Protein Urine Glucose (UA) Urine Ketones Urine Occult Blood Urine Nitrite Urine Bilirubin Urine Urobilinogen Ur Leukocyte Esterase Urine RBC Urine WBC Ur Squamous Epith Cells Urine Bacteria Hyaline Casts Urine Mucus POC Glucose 07/21/18 23:22 POC Glucose 132 H Assessment/Plan Patient seen and examined independently. Data reviewed. I agree with the above note by the physician painter assistant. 1. acute metabolic encephalopathy resolved possibly du to SIRS 2. SIRS POA etiology unclear may have been viral doubt due to medication, as he has taken the abx today without issues. DW patient's at bedside. Code Visit Inpatient E&M: 01726 Subs Hosp L2
--- NOTE | 2018-07-22 13:01 | PN_ITS ---
Addendum entered and electronically signed by VICKI Preciado 07/23/18 13:58: Code Visit add to problem list: iron deficiency anemia - stable. likely not absorbing current formulation of iron, changed to ferex, give venofer x1. Original Note: <Naman Carrasco - Last Filed: 07/22/18 12:55> Patient Problems: Active and Suspected Problems (Last Reviewed 07/22/18 @ 05:48 by Andi Barakat MD) Diarrhea (Acute) Subjective: Patient resting comfortably in bed NAD, A/Ox3, does not seem confused at all now. He has no pain/discomfort/erythema/irriation at his PICC location or of his left knee. Mild edema around the left knee. No fever/chills. No SOB/co ugh/abdominal pain/nausea/vomiting. He has had several days of loose stools and does have a hx of Cdiff, however no abdominal pain and no distention, bloating, blood in stool. He attempted to provide a sample this morning and could not provide a BM and has not since. He completed 6 weeks of Ancef for his infected left knee. Yesterday PICC was pulled and he started Keflex. He has been on Rifampin for months as well. - Physical Exam General: Alert, Oriented x3, Cooperative HEENT: Atraumatic, PERRLA, EOMI, Normocephalic Neck: Supple, No JVD, Negative Carotid Bruits Lungs: Clear to auscultation, Normal air movement Cardiovascular: Regular rate, No murmurs Abdomen: Bowel Sounds Present, Soft, Non Tender Extremities: No edema, Capillary Refill Less than 3 Seconds Skin: No rashes, No breakdown Musculoskeletal: No Tenderness to Palpation of Joints or Extremities Neurological: Cranial nerves II-XII grossly intact Psych/Mental Status: Normal Affect, Appropriate, Alert and oriented to time, place, person, mood and affect Vital Signs Temp Pulse Resp BP Pulse Ox 97.0 F L 85 16 112/56 L 95 07/22/18 12:00 07/22/18 12:10 07/22/18 12:00 07/22/18 12:10 07/22/18 12:00 Oxygen Delivery Method Room Air Weight: 167 lb 12.348 oz Body Mass Index (BMI) 26.2 Finger Stick Blood Glucose 99 Intake and Output for Last 24 Hours 07/20/18 07/21/18 07/22/18 23:59 23:59 23:59 Intake Total 700 / 700 Balance 700 / 700 Microbiology Past 72 Hours 07/21/18 11:52 Stool Lactoferrin - Final Stool Laboratory Tests Past 24 Hrs 07/21/18 07/21/18 07/21/18 23:30 23:30 23:30 WBC 7.5 RBC 3.31 L Hgb 9.2 L Hct 28.0 L MCV 84.6 MCH 27.8 MCHC 32.9 RDW 15.6 H RDW Differential 48.3 H Plt Count 311 MPV 9.1 Immature Gran % (Auto) 0.500 Neut % (Auto) 92.0 H Lymph % (Auto) 3.2 L [place] % (Auto) 3.4 Eos % (Auto) 0.8 Baso % (Auto) 0.1 Absolute Neuts (auto) 6.9 Absolute Lymphs (auto) 0.24 L Total Counted Not Reportable Differential Comment SCANNED Sodium 137 Potassium 4.3 Chloride 106 Carbon Dioxide 21.0 Anion Gap 10 BUN 23 H Creatinine 1.18 Estim Creat Clear Calc 42.80 Est GFR (MDRD) Af Amer 76 Est GFR (MDRD) Non-Af 63 BUN/Creatinine Ratio 19.5 Glucose 129 H Lactic Acid 2.3 H Calcium 7.6 L Total Bilirubin 0.30 Direct Bilirubin 0.09 AST 19 ALT 7 L Alkaline Phosphatase 74 Total Protein 7.3 Albumin 2.9 L Globulin 4.4 H TSH 1.44 Urine Color Urine Clarity Urine pH Ur Specific [place] Urine Protein Urine Glucose (UA) Urine Ketones Urine Occult Blood Urine Nitrite Urine Bilirubin Urine Urobilinogen Ur Leukocyte Esterase Urine RBC Urine WBC Ur Squamous Epith Cells Urine Bacteria Hyaline Casts Urine Mucus 07/22/18 07/22/18 07/22/18 01:50 04:05 04:05 WBC 6.4 RBC 2.80 L Hgb 7.8 L Hct 23.7 L MCV 84.6 MCH 27.9 MCHC 32.9 RDW 15.9 H RDW Differential 49.4 H Plt Count 262 MPV 8.8 Immature Gran % (Auto) 0.300 Neut % (Auto) 89.2 H Lymph % (Auto) 4.2 L [place] % (Auto) 5.9 Eos % (Auto) 0.2 Baso % (Auto) 0.2 Absolute Neuts (auto) 5.8 Absolute Lymphs (auto) 0.27 L Total Counted Not Reportable Differential Comment SCANNED Sodium 138 Potassium 4.0 Chloride 109 H Carbon Dioxide 22.0 Anion Gap 7 BUN 24 H Creatinine 0.93 Estim Creat Clear Calc 56.27 Est GFR (MDRD) Af Amer 99 Est GFR (MDRD) Non-Af 82 BUN/Creatinine Ratio 25.7 H Glucose 103 Lactic Acid Calcium 7.5 L Total Bilirubin Direct Bilirubin AST ALT Alkaline Phosphatase Total Protein Albumin Globulin TSH Urine Color Yellow Urine Clarity Clear Urine pH 6.0 Ur Specific [place] 1.015 Urine Protein 30 H Urine Glucose (UA) Normal Urine Ketones 5 H Urine Occult Blood 10 H Urine Nitrite Negative Urine Bilirubin Negative Urine Urobilinogen Normal Ur Leukocyte Esterase 25 H Urine RBC 0-5 SEEN Urine WBC 0-5 SEEN Ur Squamous Epith Cells 0 SEEN Urine Bacteria RARE Hyaline Casts 0-5 SEEN Urine Mucus 2+ 07/22/18 04:05 WBC RBC Hgb Hct MCV MCH MCHC RDW RDW Differential Plt Count MPV Immature Gran % (Auto) Neut % (Auto) Lymph % (Auto) [place] % (Auto) Eos % (Auto) Baso % (Auto) Absolute Neuts (auto) Absolute Lymphs (auto) Total Counted Differential Comment Sodium Potassium Chloride Carbon Dioxide Anion Gap BUN Creatinine Estim Creat Clear Calc Est GFR (MDRD) Af Amer Est GFR (MDRD) Non-Af BUN/Creatinine Ratio Glucose Lactic Acid 1.4 Calcium Total Bilirubin Direct Bilirubin AST ALT Alkaline Phosphatase Total Protein Albumin Globulin TSH Urine Color Urine Clarity Urine pH Ur Specific [place] Urine Protein Urine Glucose (UA) Urine Ketones Urine Occult Blood Urine Nitrite Urine Bilirubin Urine Urobilinogen Ur Leukocyte Esterase Urine RBC Urine WBC Ur Squamous Epith Cells Urine Bacteria Hyaline Casts Urine Mucus POC Glucose 07/21/18 23:22 POC Glucose 132 H Medical Necessity - Tobacco Use Smoking Status: Never smoker Assessment/Plan All Active Problems (Last Reviewed 07/22/18 @ 05:48 by Andi Barakat MD) Diarrhea (Acute) Staph infection (Acute) History of coronary artery stent placement (Resolved 05/31/18) Dehydration (Resolved) Diarrhea (Resolved) Generalized weakness (Resolved) Joint pain (Resolved) Positive blood cultures (Resolved) 1. Acute metabolic encephalopathy - SIRS at presentation. Improved. PICC sight and L knee appear uninfected. Possible Abx reaction. Received keflex this AM with no issues. Follow blood cultures. No fever/leukocytosis. CXR neg, UA neg. Check stool studies -hx of diff and on long course of abx. 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 continue current abx plan. F/u With Dr. Vicente. 3. HTN - stable 4. HLD - statin 5. BPH - flomax DVT ppx: lovenox DC planning: PTOT This patient was seen by Naman Carrasco PA-C under the supervision of Dr. Bryan. <Jesus Bryan - Last Filed: 07/22/18 15:57> Subjective: No further diarrhea. - Physical Exam General: Alert, Cooperative HEENT: Atraumatic, Normocephalic Neck: No Nodes, Thyroid Normal Size and Texture Lungs: Clear to auscultation, Normal air movement, No rhonchi, No wheeze Cardiovascular: Regular rate, Regular Rhythm, Normal S1, Normal S2, No murmurs Abdomen: Bowel Sounds Present, Soft, Non Tender, Non-Distended Extremities: No edema, No Calf Tenderness Skin: No rashes, No breakdown Psych/Mental Status: Normal Affect, Appropriate Vital Signs Temp Pulse Resp BP Pulse Ox 36.1 C L 85 16 112/56 L 95 07/22/18 12:00 07/22/18 12:10 07/22/18 12:00 07/22/18 12:10 07/22/18 12:00 Oxygen Delivery Method Room Air Weight: 76.1 kg Body Mass Index (BMI) 26.2 Finger Stick Blood Glucose 99 Intake and Output for Last 24 Hours 07/20/18 07/21/18 07/22/18 23:59 23:59 23:59 Intake Total 700 / 700 Balance 700 / 700 Microbiology Past 72 Hours 07/21/18 11:52 C. difficile DNA Amplification - Final Stool 07/21/18 11:52 Stool Lactoferrin - Final Stool Laboratory Tests Past 24 Hrs 07/21/18 07/21/18 07/21/18 23:30 23:30 23:30 WBC 7.5 RBC 3.31 L Hgb 9.2 L Hct 28.0 L MCV 84.6 MCH 27.8 MCHC 32.9 RDW 15.6 H RDW Differential 48.3 H Plt Count 311 MPV 9.1 Immature Gran % (Auto) 0.500 Neut % (Auto) 92.0 H Lymph % (Auto) 3.2 L [place] % (Auto) 3.4 Eos % (Auto) 0.8 Baso % (Auto) 0.1 Absolute Neuts (auto) 6.9 Absolute Lymphs (auto) 0.24 L Total Counted Not Reportable Differential Comment SCANNED Sodium 137 Potassium 4.3 Chloride 106 Carbon Dioxide 21.0 Anion Gap 10 BUN 23 H Creatinine 1.18 Estim Creat Clear Calc 42.80 Est GFR (MDRD) Af Amer 76 Est GFR (MDRD) Non-Af 63 BUN/Creatinine Ratio 19.5 Glucose 129 H Lactic Acid 2.3 H Calcium 7.6 L Total Bilirubin 0.30 Direct Bilirubin 0.09 AST 19 ALT 7 L Alkaline Phosphatase 74 Total Protein 7.3 Albumin 2.9 L Globulin 4.4 H TSH 1.44 Urine Color Urine Clarity Urine pH Ur Specific [place] Urine Protein Urine Glucose (UA) Urine Ketones Urine Occult Blood Urine Nitrite Urine Bilirubin Urine Urobilinogen Ur Leukocyte Esterase Urine RBC Urine WBC Ur Squamous Epith Cells Urine Bacteria Hyaline Casts Urine Mucus 07/22/18 07/22/18 07/22/18 01:50 04:05 04:05 WBC 6.4 RBC 2.80 L Hgb 7.8 L Hct 23.7 L MCV 84.6 MCH 27.9 MCHC 32.9 RDW 15.9 H RDW Differential 49.4 H Plt Count 262 MPV 8.8 Immature Gran % (Auto) 0.300 Neut % (Auto) 89.2 H Lymph % (Auto) 4.2 L [place] % (Auto) 5.9 Eos % (Auto) 0.2 Baso % (Auto) 0.2 Absolute Neuts (auto) 5.8 Absolute Lymphs (auto) 0.27 L Total Counted Not Reportable Differential Comment SCANNED Sodium 138 Potassium 4.0 Chloride 109 H Carbon Dioxide 22.0 Anion Gap 7 BUN 24 H Creatinine 0.93 Estim Creat Clear Calc 56.27 Est GFR (MDRD) Af Amer 99 Est GFR (MDRD) Non-Af 82 BUN/Creatinine Ratio 25.7 H Glucose 103 Lactic Acid Calcium 7.5 L Total Bilirubin Direct Bilirubin AST ALT Alkaline Phosphatase Total Protein Albumin Globulin TSH Urine Color Yellow Urine Clarity Clear Urine pH 6.0 Ur Specific [place] 1.015 Urine Protein 30 H Urine Glucose (UA) Normal Urine Ketones 5 H Urine Occult Blood 10 H Urine Nitrite Negative Urine Bilirubin Negative Urine Urobilinogen Normal Ur Leukocyte Esterase 25 H Urine RBC 0-5 SEEN Urine WBC 0-5 SEEN Ur Squamous Epith Cells 0 SEEN Urine Bacteria RARE Hyaline Casts 0-5 SEEN Urine Mucus 2+ 07/22/18 04:05 WBC RBC Hgb Hct MCV MCH MCHC RDW RDW Differential Plt Count MPV Immature Gran % (Auto) Neut % (Auto) Lymph % (Auto) [place] % (Auto) Eos % (Auto) Baso % (Auto) Absolute Neuts (auto) Absolute Lymphs (auto) Total Counted Differential Comment Sodium Potassium Chloride Carbon Dioxide Anion Gap BUN Creatinine Estim Creat Clear Calc Est GFR (MDRD) Af Amer Est GFR (MDRD) Non-Af BUN/Creatinine Ratio Glucose Lactic Acid 1.4 Calcium Total Bilirubin Direct Bilirubin AST ALT Alkaline Phosphatase Total Protein Albumin Globulin TSH Urine Color Urine Clarity Urine pH Ur Specific [place] Urine Protein Urine Glucose (UA) Urine Ketones Urine Occult Blood Urine Nitrite Urine Bilirubin Urine Urobilinogen Ur Leukocyte Esterase Urine RBC Urine WBC Ur Squamous Epith Cells Urine Bacteria Hyaline Casts Urine Mucus POC Glucose 07/21/18 23:22 POC Glucose 132 H Assessment/Plan Patient seen and examined independently. Data reviewed. I agree with the above note by the physician assistant professor of english. 1. acute metabolic encephalopathy * resolved * possibly du to SIRS 2. SIRS * POA * etiology unclear * may have been viral * doubt due to medication, as he has taken the abx today without issues. DW patient's at bedside. Code Visit Inpatient E&M: 07370 Subs Hosp L2
[2018-07-22] MEDS: Tamsulosin HCl 0.4 MG Capsule PO (22:27)
[2018-07-22] MEDS: Pravastatin 80 MG Tablet PO (22:28)
[2018-07-22] MEDS: Finasteride 5 MG Tablet PO (22:28)
--- NOTE | 2018-07-22 23:40 | CT_ITS ---
STUDY: CT BRAIN WITHOUT CONTRAST REASON FOR EXAM: Male, 83 years old. Diarrhea, confusion, weakness, recent staph infection. PICC line removed yesterday. History of C. Difficile, hemorrhagic stroke, stent and hypertension RADIATION DOSAGE (If Supplied By Facility): CTDIvol = ( 44.99 ) mGy, DLP = ( 846.73 ) mGycm TECHNIQUE: Transaxial CT imaging of the brain was performed without administration of intravenous contrast material. Individualized dose optimization techniques were used for this CT. COMPARISON: CT brain noncontrast 09/10/2016. 10/14. FINDINGS: Normal soft tissue structures. Normal calvarium. There is mild cerebral atrophy with widening of the extra-axial spaces and ventricular dilatation. There are areas of decreased attenuation within the white matter tracts of the supratentorial brain, consistent with microvascular disease changes. Stable left frontal subcortical triangular calcification 0.8 x 0.7 cm since 2015. Stable low-attenuation left inferior occipital lobe. Stable remote lacunar infarcts in the basal ganglia. Normal brainstem. There is mild cerebellar atrophy. There is no intracranial hemorrhage. There are no findings of an acute ischemic infarction. Normal visualized paranasal sinuses. The bilateral mastoid air cells are clear. 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 CT/Brain/Head without Contrast IMPRESSION: Chronic involutional changes of the brain. Remote changes of the white matter as outlined above. Remote lacunar infarct in the basal ganglia. There is no acute intracranial pathology. There is no significant interval change. Electronically Signed: Freida Zaman MD at 0:45 EDT , Service support ,
[2018-07-23] VITALS (7 sets, daily range): BP systolic 118–157; BP diastolic 57–92; PULSE 74–85; RESP 18; TEMP 36.6–36.9; O2SAT 94–98
[2018-07-23] MEDS: Cephalexin 500 MG Capsule PO ×2 (06:33→14:31)
[2018-07-23] MEDS: Levothyroxine 112 MCG Tablet PO (06:33)
[2018-07-23 06:36] LABS: Absolute Lymphocyte Count 0.74 X10^3/ul (0.83-4.51); Absolute Neutrophil Count 3.3 X10^3/uL (2.0-7.7); Basophil# 0.01 X10^3/uL; Basophil% 0.2 % (0-1); Eosinophil# 0.13 X10^3/uL; Eosinophils% 2.9 % (0-5); Hematocrit 25.8 % (40-54); Hemoglobin 8.3 g/dl (13.0-16.5); Lymphocyte # 0.74 X10^3/ul (4.0); Lymphocyte % 16.4 % (19-41); Mean Corp Hgb Conc 32.2 g/gl (32-36); Mean Corpuscular Hgb 27.3 pg (27.0-32.0); Mean Corpuscular Volume 84.9 fL (80-94); Mean Platelet Vol. 8.8 fl (6.2-12.0); Monocyte# 0.27 X10^3/uL; Neutrophil # 3.34 X10^3/uL (2.7-7.7); Neutrophil % 74.1 % (47-70); Platelet Count 270 K/mm3 (150-450); RBC Distribution Width CV 15.3 % (11.6-14.6); RBC Distribution Width SD 46.5 fl (35.1-43.9); Red Blood Count 3.04 M/mm3 (4.6-6.2); White Blood Count 4.5 K/mm3 (4.4-11.0)
[2018-07-23 06:37] LABS: POSITIVE COUNT NO; POSITIVE DIFFERENTIAL NO; POSITIVE MORPHOLOGY NO
[2018-07-23] MEDS: Cyanocobalamin 500 MCG Tablet 1000 MCG PO ×2 (07:57→21:57)
[2018-07-23] MEDS: rifAMPin 300 MG Capsule 600 MG PO (07:57)
[2018-07-23] MEDS: Enoxaparin 40 MG/0.4 ML Syringe SC (07:57)
[2018-07-23] MEDS: Gabapentin 300 MG Capsule PO ×3 (07:58→16:41)
[2018-07-23] MEDS: Hydroxychloroquine 200 MG Tablet PO ×2 (07:59→16:41)
[2018-07-23 09:15] LABS: Iron 22 ug/dL (65-175); Iron Binding Capacity,Total 179 ug/dL (250-450); PERCENT IRON SATURATION 12.3 % (15.0-55.0)
[2018-07-23] MEDS: Metoprolol(XL)Succ 25 MG Tablet 12.5 MG PO (12:07)
[2018-07-23] MEDS: 0.9% NaCl Peripheral Flush Adult/Peds IV (12:07)
[2018-07-23] MEDS: Loperamide 2 MG Capsule PO ×2 (12:07→18:10)
--- NOTE | 2018-07-23 13:53 | PCM.PROGNOTE ---
<Naman Carrasco - Last Filed: 07/23/18 13:53> Patient Problems: Active and Suspected Problems (Last Reviewed 07/22/18 @ 05:48 by Andi Barakat MD) Diarrhea (Acute) Subjective: Ongoing watery stools. No blood. Cdiff test and enteric panels neg. No N/V, no distention, no cramping, no pain. Pt believes this was an issue with his Keflex as he had no issue before taking the first dose of keflex. He wants this changed and wants ID called. He denies fevers/chills. PICC sight and knee are unchanged. - Physical Exam General: Alert, Oriented x3, Cooperative HEENT: Atraumatic, PERRLA, EOMI, Normocephalic Neck: Supple, No JVD, Negative Carotid Bruits Lungs: Clear to auscultation, Normal air movement Cardiovascular: Regular rate, No murmurs Abdomen: Bowel Sounds Present, Soft, Non Tender Extremities: No edema, Capillary Refill Less than 3 Seconds Skin: No rashes, No breakdown Musculoskeletal: No Tenderness to Palpation of Joints or Extremities Neurological: Cranial nerves II-XII grossly intact Psych/Mental Status: Normal Affect, Appropriate, Alert and oriented to time, place, person, mood and affect Vital Signs Temp Pulse Resp BP Pulse Ox 98.3 F 82 18 143/68 H 98 07/23/18 12:05 07/23/18 12:07 07/23/18 12:05 07/23/18 12:07 07/23/18 12:05 Oxygen Delivery Method Room Air Weight: 167 lb 12.348 oz Body Mass Index (BMI) 26.2 Finger Stick Blood Glucose 99 Intake and Output for Last 24 Hours 07/21/18 07/22/18 07/23/18 23:59 23:59 23:59 Intake Total 1200 / 1200 550 / 550 Output Total 200 / 200 Balance 1000 / 1000 550 / 550 Microbiology Past 72 Hours 07/21/18 11:52 Enteric Bacteriology - Final Stool 07/21/18 11:52 C. difficile DNA Amplification - Final Stool 07/21/18 11:52 Stool Lactoferrin - Final Stool Laboratory Tests Past 24 Hrs 07/23/18 07/23/18 06:20 06:20 WBC 4.5 RBC 3.04 L Hgb 8.3 L Hct 25.8 L MCV 84.9 MCH 27.3 MCHC 32.2 RDW 15.3 H RDW Differential 46.5 H Plt Count 270 MPV 8.8 Immature Gran % (Auto) 0.400 Neut % (Auto) 74.1 H Lymph % (Auto) 16.4 L [place] % (Auto) 6.0 Eos % (Auto) 2.9 Baso % (Auto) 0.2 Absolute Neuts (auto) 3.3 Absolute Lymphs (auto) 0.74 L Total Counted Not Reportable Iron 22 L TIBC 179 L Iron Saturation 12.3 L Medical Necessity - Tobacco Use Smoking Status: Never smoker Assessment/Plan All Active Problems (Last Reviewed 07/22/18 @ 05:48 by Andi Barakat MD) Diarrhea (Acute) Staph infection (Acute) History of coronary artery stent placement (Resolved 05/31/18) Dehydration (Resolved) Diarrhea (Resolved) Generalized weakness (Resolved) Joint pain (Resolved) Positive blood cultures (Resolved) 1. Acute metabolic encephalopathy - mental status is improved. SIRS at presentation. Improved. PICC sight and L knee appear uninfected. Possible Abx reaction. C diff and enteric panels negative. Diarrhea is ongoing. Trial immodium. Ova/parasites pending. Follow blood cultures. No fever/leukocytosis. CXR neg, UA neg. Continue on rifampin and keflex. 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 continue current abx plan. F/u With Dr. Vicente. Appears unchanged. 3. HTN - stable 4. HLD - statin 5. BPH - flomax DVT ppx: lovenox DC planning: PTOT This patient was seen by Naman Carrasco PA-C under the supervision of Dr. Bryan. <Jesus Bryan - Last Filed: 07/23/18 14:11> Subjective: Still having diarrhea. - Physical Exam General: Alert, Cooperative HEENT: Atraumatic, Normocephalic Oral: Moist Mucosa, No Gingival or Mucosal Lesions/ Ulcerations Neck: No Nodes, Thyroid Normal Size and Texture Lungs: Clear to auscultation, Normal air movement, No rhonchi, No wheeze Cardiovascular: Regular rate, Regular Rhythm, Normal S1, Normal S2, No murmurs Abdomen: Bowel Sounds Present, Soft, Non Tender, Non-Distended Extremities: No edema, No Calf Tenderness Skin: No rashes, No breakdown Psych/Mental Status: Appropriate, Flat Affect Vital Signs Temp Pulse Resp BP Pulse Ox 36.8 C 82 18 143/68 H 98 07/23/18 12:05 07/23/18 12:07 07/23/18 12:05 07/23/18 12:07 07/23/18 12:05 Oxygen Delivery Method Room Air Weight: 76.1 kg Body Mass Index (BMI) 26.2 Finger Stick Blood Glucose 99 Intake and Output for Last 24 Hours 07/21/18 07/22/18 07/23/18 23:59 23:59 23:59 Intake Total 1200 / 1200 550 / 550 Output Total 200 / 200 Balance 1000 / 1000 550 / 550 Microbiology Past 72 Hours 07/21/18 11:52 Enteric Bacteriology - Final Stool 07/21/18 11:52 C. difficile DNA Amplification - Final Stool 07/21/18 11:52 Stool Lactoferrin - Final Stool Laboratory Tests Past 24 Hrs 07/23/18 07/23/18 06:20 06:20 WBC 4.5 RBC 3.04 L Hgb 8.3 L Hct 25.8 L MCV 84.9 MCH 27.3 MCHC 32.2 RDW 15.3 H RDW Differential 46.5 H Plt Count 270 MPV 8.8 Immature Gran % (Auto) 0.400 Neut % (Auto) 74.1 H Lymph % (Auto) 16.4 L [place] % (Auto) 6.0 Eos % (Auto) 2.9 Baso % (Auto) 0.2 Absolute Neuts (auto) 3.3 Absolute Lymphs (auto) 0.74 L Total Counted Not Reportable Iron 22 L TIBC 179 L Iron Saturation 12.3 L Assessment/Plan Patient seen and examined independently. Data reviewed. I agree with the above note by the physician cancer genetics assistant. 1. acute metabolic encephalopathy resolved possibly du to SIRS 2. SIRS POA etiology unclear may have been viral doubt due to medication, as he has taken the abx today without issues. 3. Diarrhea Likely antibiotics associated. C. difficile and enteric bacteria were negative. Started on Imodium Had a very long discussion with the patient and his that class effect of antibiotics his diarrhea and that changing antibiotics may not necessarily change that. Stated that the patient can take Imodium which was ordered before I had seen the patient and but it is as needed and would need to request that. The patient and his were convinced that the Keflex was the sole culprit. Told him I did not feel that this was some [place] was synchronic reaction associated with Keflex though I did not state that it could not. But there are that the diarrhea was induced by the antibiotics and that trying increasing his probiotics as well as taking the Imodium to help. If not then we can consider changing the Keflex. I stated that I would defer changing antibiotics to infectious disease who is on consultation. I stated that I would not want to add Keflex to his allergy list particular if he would need cephalosporins in the future that may be preclude the use so I think it is premature to diagnose it as a allergy. Adverse reaction related with antibiotics, but once again I reiterated to them, that that is a common side effect of antibiotics in general. Patient may not of had the diarrhea previously because he was on IV vancomycin. DW patient's at bedside. Greater than 35 minutes of which greater than 50% of time was discussing with the patient and his about antibiotics and antibiotics associated diarrhea. Please see that she is under #3 for further details. Code Visit Inpatient E&M: 09647 Subs Hosp L3
--- NOTE | 2018-07-23 13:58 | PN_ITS ---
<Naman Carrasco - Last Filed: 07/23/18 13:53> Patient Problems: Active and Suspected Problems (Last Reviewed 07/22/18 @ 05:48 by Andi Barakat MD) Diarrhea (Acute) Subjective: Ongoing watery stools. No blood. Cdiff test and enteric panels neg. No N/V, no distention, no cramping, no pain. Pt believes this was an issue with his Keflex as he had no issue before taking the first dose of keflex. He wants this changed and wants ID called. He denies fevers/chills. PICC sight and knee are unchanged. - Physical Exam General: Alert, Oriented x3, Cooperative HEENT: Atraumatic, PERRLA, EOMI, Normocephalic Neck: Supple, No JVD, Negative Carotid Bruits Lungs: Clear to auscultation, Normal air movement Cardiovascular: Regular rate, No murmurs Abdomen: Bowel Sounds Present, Soft, Non Tender Extremities: No edema, Capillary Refill Less than 3 Seconds Skin: No rashes, No breakdown Musculoskeletal: No Tenderness to Palpation of Joints or Extremities Neurological: Cranial nerves II-XII grossly intact Psych/Mental Status: Normal Affect, Appropriate, Alert and oriented to time, place, person, mood and affect Vital Signs Temp Pulse Resp BP Pulse Ox 98.3 F 82 18 143/68 H 98 07/23/18 12:05 07/23/18 12:07 07/23/18 12:05 07/23/18 12:07 07/23/18 12:05 Oxygen Delivery Method Room Air Weight: 167 lb 12.348 oz Body Mass Index (BMI) 26.2 Finger Stick Blood Glucose 99 Intake and Output for Last 24 Hours 07/21/18 07/22/18 07/23/18 23:59 23:59 23:59 Intake Total 1200 / 1200 550 / 550 Output Total 200 / 200 Balance 1000 / 1000 550 / 550 Microbiology Past 72 Hours 07/21/18 11:52 Enteric Bacteriology - Final Stool 07/21/18 11:52 C. difficile DNA Amplification - Final Stool 07/21/18 11:52 Stool Lactoferrin - Final Stool Laboratory Tests Past 24 Hrs 07/23/18 07/23/18 06:20 06:20 WBC 4.5 RBC 3.04 L Hgb 8.3 L Hct 25.8 L MCV 84.9 MCH 27.3 MCHC 32.2 RDW 15.3 H RDW Differential 46.5 H Plt Count 270 MPV 8.8 Immature Gran % (Auto) 0.400 Neut % (Auto) 74.1 H Lymph % (Auto) 16.4 L [place] % (Auto) 6.0 Eos % (Auto) 2.9 Baso % (Auto) 0.2 Absolute Neuts (auto) 3.3 Absolute Lymphs (auto) 0.74 L Total Counted Not Reportable Iron 22 L TIBC 179 L Iron Saturation 12.3 L Medical Necessity - Tobacco Use Smoking Status: Never smoker Assessment/Plan All Active Problems (Last Reviewed 07/22/18 @ 05:48 by Andi Barakat MD) Diarrhea (Acute) Staph infection (Acute) History of coronary artery stent placement (Resolved 05/31/18) Dehydration (Resolved) Diarrhea (Resolved) Generalized weakness (Resolved) Joint pain (Resolved) Positive blood cultures (Resolved) 1. Acute metabolic encephalopathy - mental status is improved. SIRS at presentation. Improved. PICC sight and L knee appear uninfected. Possible Abx reaction. C diff and enteric panels negative. Diarrhea is ongoing. Trial immodium. Ova/parasites pending. Follow blood cultures. No fever/leukocytosis. CXR neg, UA neg. Continue on rifampin and keflex. 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 continue current abx plan. F/u With Dr. Vicente. Appears unchanged. 3. HTN - stable 4. HLD - statin 5. BPH - flomax DVT ppx: lovenox DC planning: PTOT This patient was seen by Naman Carrasco PA-C under the supervision of Dr. Bryan. <Jesus Bryan - Last Filed: 07/23/18 14:11> Subjective: Still having diarrhea. - Physical Exam General: Alert, Cooperative HEENT: Atraumatic, Normocephalic Oral: Moist Mucosa, No Gingival or Mucosal Lesions/ Ulcerations Neck: No Nodes, Thyroid Normal Size and Texture Lungs: Clear to auscultation, Normal air movement, No rhonchi, No wheeze Cardiovascular: Regular rate, Regular Rhythm, Normal S1, Normal S2, No murmurs Abdomen: Bowel Sounds Present, Soft, Non Tender, Non-Distended Extremities: No edema, No Calf Tenderness Skin: No rashes, No breakdown Psych/Mental Status: Appropriate, Flat Affect Vital Signs Temp Pulse Resp BP Pulse Ox 36.8 C 82 18 143/68 H 98 07/23/18 12:05 07/23/18 12:07 07/23/18 12:05 07/23/18 12:07 07/23/18 12:05 Oxygen Delivery Method Room Air Weight: 76.1 kg Body Mass Index (BMI) 26.2 Finger Stick Blood Glucose 99 Intake and Output for Last 24 Hours 07/21/18 07/22/18 07/23/18 23:59 23:59 23:59 Intake Total 1200 / 1200 550 / 550 Output Total 200 / 200 Balance 1000 / 1000 550 / 550 Microbiology Past 72 Hours 07/21/18 11:52 Enteric Bacteriology - Final Stool 07/21/18 11:52 C. difficile DNA Amplification - Final Stool 07/21/18 11:52 Stool Lactoferrin - Final Stool Laboratory Tests Past 24 Hrs 07/23/18 07/23/18 06:20 06:20 WBC 4.5 RBC 3.04 L Hgb 8.3 L Hct 25.8 L MCV 84.9 MCH 27.3 MCHC 32.2 RDW 15.3 H RDW Differential 46.5 H Plt Count 270 MPV 8.8 Immature Gran % (Auto) 0.400 Neut % (Auto) 74.1 H Lymph % (Auto) 16.4 L [place] % (Auto) 6.0 Eos % (Auto) 2.9 Baso % (Auto) 0.2 Absolute Neuts (auto) 3.3 Absolute Lymphs (auto) 0.74 L Total Counted Not Reportable Iron 22 L TIBC 179 L Iron Saturation 12.3 L Assessment/Plan Patient seen and examined independently. Data reviewed. I agree with the above note by the physician kindergarten instructional assistant. 1. acute metabolic encephalopathy * resolved * possibly du to SIRS 2. SIRS * POA * etiology unclear * may have been viral * doubt due to medication, as he has taken the abx today without issues. 3. Diarrhea * Likely antibiotics associated. * C. difficile and enteric bacteria were negative. * Started on Imodium * Had a very long discussion with the patient and his that class effect of antibiotics his diarrhea and that changing antibiotics may not necessarily change that. Stated that the patient can take Imodium which was ordered before I had seen the patient and but it is as needed and would need to request that. The patient and his were convinced that the Keflex was the sole culprit. Told him I did not feel that this was some [place] was synchronic reaction associated with Keflex though I did not state that it could not. But there are that the diarrhea was induced by the antibiotics and that trying increasing his probiotics as well as taking the Imodium to help. If not then we can consider changing the Keflex. I stated that I would defer changing antibiotics to infectious disease who is on consultation. I stated that I would not want to add Keflex to his allergy list particular if he would need cephalosporins in the future that may be preclude the use so I think it is premature to diagnose it as a allergy. Adverse reaction related with antibiotics, but once again I reiterated to them, that that is a common side effect of antibiotics in general. Patient may not of had the diarrhea pre viously because he was on IV vancomycin. DW patient's at bedside. Greater than 35 minutes of which greater than 50% of time was discussing with the patient and his about antibiotics and antibiotics associated diarrhea. Please see that she is under #3 for further details. Code Visit Inpatient E&M: 69903 Subs Hosp L3
--- NOTE | 2018-07-23 16:11 | CON.PCM_ITS ---
Problem List (1) Diarrhea Status: Acute Reason for Consult: diarrhea Consulted by: Dr. Bryan History of Present Illness: The patient is a 83 year old M with admission in June with MSSA bacteremia and L knee PJI, discharged on iv ancef and po rifampin. Had done well, knee well healed now, iv abx stopped 07/21, took one dose of keflex, developed diarrhea, confusion, not feeling well. Admitted here, continued on keflex and rifampin, diarrhea continues. Full ROS performed and neg except as noted above. 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) Non-rheumatic aortic stenosis (Chronic) Essential (primary) hypertension (Chronic) Hyperlipidemia (Chronic) Allergies/Adverse Reactions: Allergies lidocaine Allergy (Verified 07/21/18 23:18) Hives Home Medications: Ambulatory Orders Medication Instructions Recorded Finasteride [Proscar] 5 mg PO QHS 09/21/13 Gabapentin [Neurontin] 300 mg PO TIDCM 09/21/13 Levothyroxine Sodium [Synthroid] 112 mcg PO QHS 09/21/13 Pravastatin [Pravachol] 80 mg PO DAILY 09/21/13 Tamsulosin HCl [Flomax] 0.4 mg PO QHS 09/21/13 Hydroxychloroquine [Plaquenil] 200 mg PO BIDCM 10/25/15 L.acidoph,Paracasei, B.lactis 1 ea PO DAILY 10/25/15 [Probiotic] risedronate 150 mg tablet 150 mg PO QMONTH 84 Days #3 tab 04/27/18 tramadol 50 mg tablet 50 mg PO BID PRN PRN 30 Days #60 04/27/18 tab Cholecalciferol (Vitamin D3) 5,000 unit PO QHS 06/05/18 [Vitamin D3] Cyanocobalamin (Vitamin B-12) 1,000 mcg PO BID 06/05/18 [Vitamin B-12] Ferrous Sulfate [Slow Release Iron] 65 mg PO BID 06/05/18 Senna/Docusate Sodium [Senokot-S] 2 tab PO BID PRN PRN tab 06/12/18 metoprolol succinate ER 25 mg 12.5 mg PO LUNCH tab 07/16/18 tablet,extended release 24 hr Nifedipine [Nifedipine ER] 30 mg PO DAILY PRN 07/22/18 - Social History Tobacco Use: non-smoker Vital Signs Temp Pulse Resp BP Pulse Ox 98.3 F 82 18 143/68 H 98 07/23/18 12:05 07/23/18 12:07 07/23/18 12:05 07/23/18 12:07 07/23/18 12:05 Oxygen Delivery Method Room Air Weight: 76.1 kg Body Mass Index (BMI) 26.2 Finger Stick Blood Glucose 99 Microbiology Past 72 Hours 07/21/18 11:52 Enteric Bacteriology - Final Stool 07/21/18 11:52 C. difficile DNA Amplification - Final Stool 07/21/18 11:52 Stool Lactoferrin - Final Stool Laboratory Tests Past 24 Hrs 07/23/18 07/23/18 06:20 06:20 WBC 4.5 RBC 3.04 L Hgb 8.3 L Hct 25.8 L MCV 84.9 MCH 27.3 MCHC 32.2 RDW 15.3 H RDW Differential 46.5 H Plt Count 270 MPV 8.8 Immature Gran % (Auto) 0.400 Neut % (Auto) 74.1 H Lymph % (Auto) 16.4 L [place] % (Auto) 6.0 Eos % (Auto) 2.9 Baso % (Auto) 0.2 Absolute Neuts (auto) 3.3 Absolute Lymphs (auto) 0.74 L Total Counted Not Reportable Iron 22 L TIBC 179 L Iron Saturation 12.3 L - Other Studies Radiology: [] reviewed Other Studies: [] Route of nutrition/ use of supplements: [] Nutritional Intake: [] IV Site: [] Amaro Catheter: [] - Physical Exam General: Alert, Oriented x3, Cooperative, No apparent distress HEENT: Atraumatic, PERRLA, EOMI Neck: Supple, No Nodes Lungs: Clear to auscultation, Normal air movement Cardiovascular: Regular rate, Regular Rhythm, No murmurs Abdomen: Soft, Non Tender, Non-Distended Extremities: No edema Skin: No rashes IV Site: Peripheral, without redness Musculoskeletal: No Tenderness to Palpation of Joints or Extremities - mild L knee swelling Neurological: Cranial nerves II-XII grossly intact - Assessment/Plan Antibiotics: [] Assessment/Plan: [] Active and Suspected Problems (Last Reviewed 07/22/18 @ 05:48 by Andi Barakat MD) Diarrhea (Acute) May be related to keflex. Cdiff was neg. Being treated for MSSA L knee PJI, completed course of iv ancef. Will change to po doxy with po rifampin, plan on at least 3 more months of this combination with ID followup with Dr. Vicente. Will follow, thank you, d/w primary team.
[2018-07-23] MEDS: Doxycycline 100 MG CAPSULE PO (16:42)
[2018-07-23] MEDS: Tamsulosin HCl 0.4 MG Capsule PO (21:56)
[2018-07-23] MEDS: Pravastatin 80 MG Tablet PO (21:57)
[2018-07-23] MEDS: Finasteride 5 MG Tablet PO (21:57)
[2018-07-24] MEDS: Loperamide 2 MG Capsule PO
[2018-07-24 04:35] VITALS: BP 128/68; PULSE 80; RESP 18; TEMP 36.8; O2SAT 96
[2018-07-24] MEDS: Levothyroxine 112 MCG Tablet PO (05:39)
[2018-07-24 06:56] LABS: Absolute Neutrophil Count 2.4 X10^3/uL (2.0-7.7); Basophil# 0.02 X10^3/uL; Basophil% 0.5 % (0-1); Eosinophil# 0.16 X10^3/uL; Eosinophils% 3.9 % (0-5); Hematocrit 28.7 % (40-54); Hemoglobin 9.2 g/dl (13.0-16.5); Lymphocyte % 24.4 % (19-41); Mean Corp Hgb Conc 32.1 g/gl (32-36); Mean Corpuscular Hgb 26.8 pg (27.0-32.0); Mean Corpuscular Volume 83.7 fL (80-94); Mean Platelet Vol. 8.8 fl (6.2-12.0); Monocyte# 0.48 X10^3/uL; Monocyte% 11.7 % (0-10); Neutrophil # 2.42 X10^3/uL (2.7-7.7); Platelet Count 277 K/mm3 (150-450); RBC Distribution Width CV 15.7 % (11.6-14.6); RBC Distribution Width SD 48.1 fl (35.1-43.9); Red Blood Count 3.43 M/mm3 (4.6-6.2); White Blood Count 4.1 K/mm3 (4.4-11.0)
[2018-07-24 07:02] LABS: Anion Gap 7 (5-15); BUN 11 mg/dL (7-18); BUN/Creat Ratio 13.3 RATIO (10-20); Calcium,Total 7.9 mg/dL (8.5-10.1); Chloride 113 mmol/L (98-107); Creatinine, Serum 0.83 mg/dL (0.70-1.30); EST Glomerular Filtration Rate 94 mL/min (>60); Est Glom Filt Rate - Afr Amer 114 mL/min (>60); Estimated Creatinine Clearance 63.05 ml/min; Glucose 99 mg/dL (74-106); Potassium 3.5 mmol/L (3.5-5.1); Sodium Level 136 mmol/L (136-145)
[2018-07-24 07:04] LABS: POSITIVE COUNT NO; POSITIVE DIFFERENTIAL NO; POSITIVE MORPHOLOGY NO
[2018-07-24 07:44] VITALS: BP 133/71; PULSE 81; RESP 20; TEMP 36.9; O2SAT 94
[2018-07-24] MEDS: Hydroxychloroquine 200 MG Tablet PO (07:51)
[2018-07-24] MEDS: Gabapentin 300 MG Capsule PO (07:51)
[2018-07-24] MEDS: Iron Polysaccharide Complex 150 MG CAPSULE PO (07:51)
[2018-07-24 08:00] VITALS: O2SAT 94
[2018-07-24] MEDS: Doxycycline 100 MG CAPSULE PO (09:58)
[2018-07-24] MEDS: Enoxaparin 40 MG/0.4 ML Syringe SC (09:58)
[2018-07-24] MEDS: rifAMPin 300 MG Capsule 600 MG PO (09:59)
[2018-07-24] MEDS: Cyanocobalamin 500 MCG Tablet 1000 MCG PO (09:59)
--- NOTE | 2018-07-24 10:37 | DCINST_ITS ---
- Discharge Diagnoses Current Active Problems: Current Active and Chronic Problems (Last Reviewed 07/22/18 @ 05:48 by Andi Barakat MD) Diarrhea (Acute) You will use the following diet at home:: Cardiac Your food should be the consistency of: Regular Your liquids should be the consistency of: Regular/Thin Discharge Activity: Return to Normal Activity Additional Instructions: May use over the counter immodium daily for diarrhea, however as instructed, cut back the dose day by day until off of medication. Allergies/Adverse Reactions: Allergies lidocaine Allergy (Verified 07/21/18 23:18) Hives Medications to take at Discharge Finasteride [Proscar] 5 mg PO QHS 09/21/13 Gabapentin [Neurontin] 300 mg PO TIDCM 09/21/13 Levothyroxine Sodium [Synthroid] 112 mcg PO QHS 09/21/13 Pravastatin [Pravachol] 80 mg PO DAILY 09/21/13 Tamsulosin HCl [Flomax] 0.4 mg PO QHS 09/21/13 Hydroxychloroquine [Plaquenil] 200 mg PO BIDCM 10/25/15 L.acidoph,Paracasei, B.lactis [Probiotic] 1 ea PO DAILY 10/25/15 risedronate 150 mg tablet 150 mg PO QMONTH 84 Days #3 tab 04/27/18 tramadol 50 mg tablet 50 mg PO BID PRN PRN 30 Days #60 tab 04/27/18 Cholecalciferol (Vitamin D3) [Vitamin D3] 5,000 unit PO QHS 06/05/18 Cyanocobalamin (Vitamin B-12) [Vitamin B-12] 1,000 mcg PO BID 06/05/18 Senna/Docusate Sodium [Senokot-S] 2 tab PO BID PRN PRN tab 06/12/18 metoprolol succinate ER 25 mg tablet,extended release 24 hr 12.5 mg PO LUNCH tab 07/16/18 Nifedipine [Nifedipine ER] 30 mg PO DAILY PRN 07/22/18 Doxycycline 100 mg PO BID #60 capsule 07/24/18 Iron Polysaccharide Complex [Ferrex 150] 150 mg PO DAILYCM #30 capsule 07/24/18 Rifampin [Rifadin] 600 mg PO DAILY capsule 07/24/18 The following prescriptions were given: Doxycycline 100 mg PO BID #60 capsule Iron Polysaccharide Complex [Ferrex 150] 150 mg PO DAILYCM #30 capsule Primary Care Physician: Ximena Haines MD [Primary Care Provider] - Please follow up with your Primary Care Physician in: 1-2 weeks Test Results: Test results from this visit will be discussed in further detail at your follow- up appointment, if applicable. Please Follow Up With: Ector Vicente MD When: 2 weeks Proposed Discharge Date: 07/24/18
[2018-07-24 11:12] VITALS: BP 133/71; PULSE 81; RESP 20; TEMP 36.9; O2SAT 94
--- NOTE | 2018-07-24 11:32 | NURSING ---
pt very knowledgeable re meds/dx/treatment and able to disc at length. However, he is very resistant/frustrated w/keeping appts. It's too complicated, too far to drive, my son needs to drive, we reschedule all the time. disc possibility of asking OP physician re closer options for f/u and the importance of treating infection. He indicates understanding
--- NOTE | 2018-07-24 14:44 | PCM.DC.SUM ---
<Naman Carrasco - Last Filed: 07/24/18 14:44> Discharge Date and Diagnosis Date of Admission: 07/22/18 Date of Discharge: 07/24/18 - Primary Discharge Diagnosis SIRS-infectious etiology ruled out Acute metabolic encephalopathy and acute diarrhea secondary to suspected drug reaction-Keflex Chronic left prosthetic knee infection-MSSA Hypertension Hyperlipidemia BPH Iron deficiency anemia History of stroke Hx of Cdiff colitis - Secondary Discharge Diagnosis Chronic Problems (Last Reviewed 07/22/18 @ 05:48 by Andi Barakat MD) Atherosclerotic heart disease of [place] coronary artery without angina pectoris (Chronic) BILL to mid LAD w/ 2.75 X 20 Synergy 05/31/18 POBA-ISR mid-LAD 06/02/18 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 No acute cardiopulmonary disease. No significant interval change. CT/Brain/Head without Contrast IMPRESSION: Chronic involutional changes of the brain. Remote changes of the white matter as outlined above. Remote lacunar infarct in the basal ganglia. There is no acute intracranial pathology. There is no significant interval change. Consults: MEDHAT - Tracee Operations: None Procedures: None Summary of Care Provided: Hospital Course: The patient is a 83 year old M with past medical history most notable for left prosthetic knee infection, MSSA, who has been treated by infectious disease for the past 6 weeks with IV antibiotics-Ancef along with oral rifampin. The day prior to presentation to the emergency room he had his PICC line removed and he was started on oral Keflex. After taking his first dose of Keflex, he became confused, and had a severe diarrhea. He presented to the emergency room with Sirs criteria met with tachycardia and tachypnea and lactic acidosis. He was given supportive care, and admitted to the PCU. His mental status improved overnight, his lactic acidosis resolved. CT of the brain was negative. He had no signs of infection around his PICC line insertion site or his knee. Blood cultures were obtained-these were negative after 48 hours. He was checked for C. difficile, and an enteric panel was run. These were negative. Stool lactoferrin was negative. He continued to have significant diarrhea, he was started on Imodium. The patient was insistent that his symptoms were related to the Keflex and insisted on infectious disease to evaluate his antibiotic regimen. We were agreeable, Dr. Easley saw the patient and changed him to doxycycline. He will continue rifampin. His mental status remained stable. His frequency of stools declined with Imodium use. He was cautioned about the possibility of doxycycline also giving him abdominal issues and diarrhea. He is going to be on at least 3 months of oral antibiotic therapy. He was advised to follow-up with infectious disease in 1 to 2 weeks, and follow-up with his PCP in 1 to 2 weeks. He was advised to continue as needed Imodium for diarrhea, but to attempt to taper down over the next several days, and warned about overuse of antidiarrheals regarding constipation and bowel obstruction. Ova and parasites are still pending at this time. Also of note he remained significantly anemic while here, he has a history of iron deficiency anemia. His iron studies were checked and revealed ongoing iron deficiency. He was given 1x dose of venofer and we adjusted his formulation of iron to Ferrex. He will need to follow-up with his PCP concerning this as well. This patient was seen by Naman Carrasco PA-C under the supervision of Doctor Irvin. [] - Physical Exam General: Alert, Oriented x3, Cooperative HEENT: Atraumatic, PERRLA, EOMI, Normocephalic Neck: Supple, No JVD, Negative Carotid Bruits Lungs: Clear to auscultation, Normal air movement Cardiovascular: Regular rate, No murmurs Abdomen: Bowel Sounds Present, Soft, Non Tender Extremities: No edema, Capillary Refill Less than 3 Seconds Skin: No rashes, No breakdown Musculoskeletal: No Tenderness to Palpation of Joints or Extremities Neurological: Cranial nerves II-XII grossly intact Psych/Mental Status: Normal Affect, Appropriate Vital Signs Temp Pulse Resp BP Pulse Ox 98.4 F 81 20 H 133/71 H 94 07/24/18 11:12 07/24/18 11:12 07/24/18 11:12 07/24/18 11:12 07/24/18 11:12 Oxygen Delivery Method Room Air Weight: 167 lb 12.348 oz Body Mass Index (BMI) 26.2 Finger Stick Blood Glucose 99 Intake and Output for Last 24 Hours 07/22/18 07/23/18 07/24/18 23:59 23:59 23:59 Intake Total 1200 / 1200 550 / 550 490 / 490 Output Total 200 / 200 Balance 1000 / 1000 550 / 550 490 / 490 Microbiology Past 72 Hours 07/21/18 23:35 Blood Culture - Preliminary Blood Culture (Wb) - Right Forearm No growth in 48 hours. 07/21/18 23:30 Blood Culture - Preliminary Blood Culture (Wb) - Anticubital Right No growth in 48 hours. 07/21/18 11:52 Enteric Bacteriology - Final Stool 07/21/18 11:52 C. difficile DNA Amplification - Final Stool 07/21/18 11:52 Stool Lactoferrin - Final Stool Laboratory Tests Past 24 Hrs 07/24/18 07/24/18 06:41 06:41 WBC 4.1 L RBC 3.43 L Hgb 9.2 L Hct 28.7 L MCV 83.7 MCH 26.8 L MCHC 32.1 RDW 15.7 H RDW Differential 48.1 H Plt Count 277 MPV 8.8 Immature Gran % (Auto) 0.500 Neut % (Auto) 59.0 Lymph % (Auto) 24.4 [place] % (Auto) 11.7 H Eos % (Auto) 3.9 Baso % (Auto) 0.5 Absolute Neuts (auto) 2.4 Absolute Lymphs (auto) 1.00 Total Counted Not Reportable Sodium 136 Potassium 3.5 Chloride 113 H Carbon Dioxide 16.0 L Anion Gap 7 BUN 11 Creatinine 0.83 Estim Creat Clear Calc 63.05 Est GFR (MDRD) Af Amer 114 Est GFR (MDRD) Non-Af 94 BUN/Creatinine Ratio 13.3 Glucose 99 Calcium 7.9 L Discharge Diet: Low fat/ Low Cholesterol, 2000 mg Sodium Diet Discharge Activity: Return to Normal Activity Home Medications: Medications to take at Discharge Finasteride [Proscar] 5 mg PO QHS 09/21/13 Gabapentin [Neurontin] 300 mg PO TIDCM 09/21/13 Levothyroxine Sodium [Synthroid] 112 mcg PO QHS 09/21/13 Pravastatin [Pravachol] 80 mg PO DAILY 09/21/13 Tamsulosin HCl [Flomax] 0.4 mg PO QHS 09/21/13 Hydroxychloroquine [Plaquenil] 200 mg PO BIDCM 10/25/15 L.acidoph,Paracasei, B.lactis [Probiotic] 1 ea PO DAILY 10/25/15 risedronate 150 mg tablet 150 mg PO QMONTH 84 Days #3 tab 04/27/18 tramadol 50 mg tablet 50 mg PO BID PRN PRN 30 Days #60 tab 04/27/18 Cholecalciferol (Vitamin D3) [Vitamin D3] 5,000 unit PO QHS 06/05/18 Cyanocobalamin (Vitamin B-12) [Vitamin B-12] 1,000 mcg PO BID 06/05/18 Senna/Docusate Sodium [Senokot-S] 2 tab PO BID PRN PRN tab 06/12/18 metoprolol succinate ER 25 mg tablet,extended release 24 hr 12.5 mg PO LUNCH tab 07/16/18 Nifedipine [Nifedipine ER] 30 mg PO DAILY PRN 07/22/18 Doxycycline 100 mg PO BID #60 capsule 07/24/18 Iron Polysaccharide Complex [Ferrex 150] 150 mg PO DAILYCM #30 capsule 07/24/18 Rifampin [Rifadin] 600 mg PO DAILY capsule 07/24/18 Following Prescrptions Were Given to Patient: Doxycycline 100 mg PO BID #60 capsule Iron Polysaccharide Complex [Ferrex 150] 150 mg PO DAILYCM #30 capsule Primary Care Physician: Ximena Haines MD [Primary Care Provider] - Please follow up with your Primary Care Physician in: 1-2 weeks Please Follow Up With: Ector Vicente MD When: 2 weeks Please Follow Up With: Ximena Haines MD Disposition: Home Minutes spent on discharge:: 35 Patient Condition:: Stable Medical Necessity - Tobacco Use Smoking Status: Never smoker Meaningful Use Info Meaningful Use Diagnoses (Choose all that apply): None applicable <Jesus Bryan - Last Filed: 07/24/18 15:00> Discharge Date and Diagnosis - Secondary Discharge Diagnosis Chronic Problems (Last Reviewed 07/22/18 @ 05:48 by Andi Barakat MD) Atherosclerotic heart disease of [place] coronary artery without angina pectoris (Chronic) BILL to mid LAD w/ 2.75 X 20 Synergy 05/31/18 POBA-ISR mid-LAD 06/02/18 Hemorrhagic cerebrovascular accident (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 Data reviewed. I agree with the above note by the physician insurance sales assistant. 1. acute metabolic encephalopathy resolved possibly du to SIRS 2. SIRS POA etiology unclear may have been viral doubt due to medication, as he has taken the abx today without issues. 3. Diarrhea Likely antibiotics associated. C. difficile and enteric bacteria were negative. Started on Imodium changed from doxycycline from keflex. [] - Physical Exam General: Alert, Cooperative, - - up in chair. NAD. HEENT: Atraumatic, Normocephalic Psych/Mental Status: Normal Affect, Appropriate Vital Signs Temp Pulse Resp BP Pulse Ox 36.9 C 81 20 H 133/71 H 94 07/24/18 11:12 07/24/18 11:12 07/24/18 11:12 07/24/18 11:12 07/24/18 11:12 Oxygen Delivery Method Room Air Weight: 76.1 kg Body Mass Index (BMI) 26.2 Finger Stick Blood Glucose 99 Intake and Output for Last 24 Hours 07/22/18 07/23/18 07/24/18 23:59 23:59 23:59 Intake Total 1200 / 1200 550 / 550 490 / 490 Output Total 200 / 200 Balance 1000 / 1000 550 / 550 490 / 490 Microbiology Past 72 Hours 07/21/18 23:35 Blood Culture - Preliminary Blood Culture (Wb) - Right Forearm No growth in 48 hours. 07/21/18 23:30 Blood Culture - Preliminary Blood Culture (Wb) - Anticubital Right No growth in 48 hours. 07/21/18 11:52 Enteric Bacteriology - Final Stool 07/21/18 11:52 C. difficile DNA Amplification - Final Stool 07/21/18 11:52 Stool Lactoferrin - Final Stool Laboratory Tests Past 24 Hrs 07/24/18 07/24/18 06:41 06:41 WBC 4.1 L RBC 3.43 L Hgb 9.2 L Hct 28.7 L MCV 83.7 MCH 26.8 L MCHC 32.1 RDW 15.7 H RDW Differential 48.1 H Plt Count 277 MPV 8.8 Immature Gran % (Auto) 0.500 Neut % (Auto) 59.0 Lymph % (Auto) 24.4 [place] % (Auto) 11.7 H Eos % (Auto) 3.9 Baso % (Auto) 0.5 Absolute Neuts (auto) 2.4 Absolute Lymphs (auto) 1.00 Total Counted Not Reportable Sodium 136 Potassium 3.5 Chloride 113 H Carbon Dioxide 16.0 L Anion Gap 7 BUN 11 Creatinine 0.83 Estim Creat Clear Calc 63.05 Est GFR (MDRD) Af Amer 114 Est GFR (MDRD) Non-Af 94 BUN/Creatinine Ratio 13.3 Glucose 99 Calcium 7.9 L Discharge Diet: Low fat/ Low Cholesterol, 2000 mg Sodium Diet Discharge Activity: Return to Normal Activity Disposition: Home Minutes spent on discharge:: 35 Patient Condition:: Stable Medical Necessity - Tobacco Use Smoking Status: Never smoker Meaningful Use Info Meaningful Use Diagnoses (Choose all that apply): None applicable Code Visit Inpatient E&M: 29960 Disch Hosp
--- NOTE | 2018-07-24 14:53 | DS.PCM_ITS ---
<Naman Carrasco - Last Filed: 07/24/18 14:44> Discharge Date and Diagnosis Date of Admission: 07/22/18 Date of Discharge: 07/24/18 - Primary Discharge Diagnosis SIRS-infectious etiology ruled out Acute metabolic encephalopathy and acute diarrhea secondary to suspected drug reaction-Keflex Chronic left prosthetic knee infection-MSSA Hypertension Hyperlipidemia BPH Iron deficiency anemia History of stroke Hx of Cdiff colitis - Secondary Discharge Diagnosis Chronic Problems (Last Reviewed 07/22/18 @ 05:48 by Andi Barakat MD) Atherosclerotic heart disease of [place] coronary artery without angina pectoris (Chronic) BILL to mid LAD w/ 2.75 X 20 Synergy 05/31/18 POBA-ISR mid-LAD 06/02/18 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 No acute cardiopulmonary disease. No significant interval change. CT/Brain/Head without Contrast IMPRESSION: Chronic involutional changes of the brain. Remote changes of the white matter as outlined above. Remote lacunar infarct in the basal ganglia. There is no acute intracranial pathology. There is no significant interval change. Consults: MEDHAT - Tracee Operations: None Procedures: None Summary of Care Provided: Hospital Course: The patient is a 83 year old M with past medical history most notable for left prosthetic knee infection, MSSA, who has been treated by infectious disease for the past 6 weeks with IV antibiotics-Ancef along with oral rifampin. The day prior to presentation to the emergency room he had his PICC line removed and he was started on oral Keflex. After taking his first dose of Keflex, he became confused, and had a severe diarrhea. He presented to the emergency room with Sirs criteria met with tachycardia and tachypnea and lactic acidosis. He was given supportive care, and admitted to the PCU. His mental status improved overnight, his lactic acidosis resolved. CT of the brain was negative. He had no signs of infection around his PICC line insertion site or his knee. Blood cultures were obtained-these were negative after 48 hours. He was checked for C. difficile, and an enteric panel was run. These were negative. Stool lactoferrin was negative. He continued to have significant diarrhea, he was started on Imodium. The patient was insistent that his symptoms were related to the Keflex and insisted on infectious disease to evaluate his antibiotic regimen. We were agreeable, Dr. Easley saw the patient and changed him to doxycycline. He will continue rifampin. His mental status remained stable. His frequency of stools declined with Imodium use. He was cautioned about the possibility of doxycycline also giving him abdominal issues and diarrhea. He is going to be on at least 3 months of oral antibiotic therapy. He was advised to follow-up with infectious disease in 1 to 2 weeks, and follow-up with his PCP in 1 to 2 weeks. He was advised to continue as needed Imodium for diarrhea, but to attempt to taper down over the next several days, and warned about overuse of antidiarrheals regarding constipation and bowel obstruction. Ova and parasites are still pending at this time. Also of note he remained significantly anemic while here, he has a history of iron deficiency anemia. His iron studies were checked and revealed ongoing iron deficiency. He was given 1x dose of venofer and we adjusted his formulation of iron to Ferrex. He will need to follow-up with his PCP concerning this as well. This patient was seen by Naman Carrasco PA-C under the supervision of Doctor Irvin. [] - Physical Exam General: Alert, Oriented x3, Cooperative HEENT: Atraumatic, PERRLA, EOMI, Normocephalic Neck: Supple, No JVD, Negative Carotid Bruits Lungs: Clear to auscultation, Normal air movement Cardiovascular: Regular rate, No murmurs Abdomen: Bowel Sounds Present, Soft, Non Tender Extremities: No edema, Capillary Refill Less than 3 Seconds Skin: No rashes, No breakdown Musculoskeletal: No Tenderness to Palpation of Joints or Extremities Neurological: Cranial nerves II-XII grossly intact Psych/Mental Status: Normal Affect, Appropriate Vital Signs Temp Pulse Resp BP Pulse Ox 98.4 F 81 20 H 133/71 H 94 07/24/18 11:12 07/24/18 11:12 07/24/18 11:12 07/24/18 11:12 07/24/18 11:12 Oxygen Delivery Method Room Air Weight: 167 lb 12.348 oz Body Mass Index (BMI) 26.2 Finger Stick Blood Glucose 99 Intake and Output for Last 24 Hours 07/22/18 07/23/18 07/24/18 23:59 23:59 23:59 Intake Total 1200 / 1200 550 / 550 490 / 490 Output Total 200 / 200 Balance 1000 / 1000 550 / 550 490 / 490 Microbiology Past 72 Hours 07/21/18 23:35 Blood Culture - Preliminary Blood Culture (Wb) - Right Forearm No growth in 48 hours. 07/21/18 23:30 Blood Culture - Preliminary Blood Culture (Wb) - Anticubital Right No growth in 48 hours. 07/21/18 11:52 Enteric Bacteriology - Final Stool 07/21/18 11:52 C. difficile DNA Amplification - Final Stool 07/21/18 11:52 Stool Lactoferrin - Final Stool Laboratory Tests Past 24 Hrs 07/24/18 07/24/18 06:41 06:41 WBC 4.1 L RBC 3.43 L Hgb 9.2 L Hct 28.7 L MCV 83.7 MCH 26.8 L MCHC 32.1 RDW 15.7 H RDW Differential 48.1 H Plt Count 277 MPV 8.8 Immature Gran % (Auto) 0.500 Neut % (Auto) 59.0 Lymph % (Auto) 24.4 [place] % (Auto) 11.7 H Eos % (Auto) 3.9 Baso % (Auto) 0.5 Absolute Neuts (auto) 2.4 Absolute Lymphs (auto) 1.00 Total Counted Not Reportable Sodium 136 Potassium 3.5 Chloride 113 H Carbon Dioxide 16.0 L Anion Gap 7 BUN 11 Creatinine 0.83 Estim Creat Clear Calc 63.05 Est GFR (MDRD) Af Amer 114 Est GFR (MDRD) Non-Af 94 BUN/Creatinine Ratio 13.3 Glucose 99 Calcium 7.9 L Discharge Diet: Low fat/ Low Cholesterol, 2000 mg Sodium Diet Discharge Activity: Return to Normal Activity Home Medications: Medications to take at Discharge Finasteride [Proscar] 5 mg PO QHS 09/21/13 Gabapentin [Neurontin] 300 mg PO TIDCM 09/21/13 Levothyroxine Sodium [Synthroid] 112 mcg PO QHS 09/21/13 Pravastatin [Pravachol] 80 mg PO DAILY 09/21/13 Tamsulosin HCl [Flomax] 0.4 mg PO QHS 09/21/13 Hydroxychloroquine [Plaquenil] 200 mg PO BIDCM 10/25/15 L.acidoph,Paracasei, B.lactis [Probiotic] 1 ea PO DAILY 10/25/15 risedronate 150 mg tablet 150 mg PO QMONTH 84 Days #3 tab 04/27/18 tramadol 50 mg tablet 50 mg PO BID PRN PRN 30 Days #60 tab 04/27/18 Cholecalciferol (Vitamin D3) [Vitamin D3] 5,000 unit PO QHS 06/05/18 Cyanocobalamin (Vitamin B-12) [Vitamin B-12] 1,000 mcg PO BID 06/05/18 Senna/Docusate Sodium [Senokot-S] 2 tab PO BID PRN PRN tab 06/12/18 metoprolol succinate ER 25 mg tablet,extended release 24 hr 12.5 mg PO LUNCH tab 07/16/18 Nifedipine [Nifedipine ER] 30 mg PO DAILY PRN 07/22/18 Doxycycline 100 mg PO BID #60 capsule 07/24/18 Iron Polysaccharide Complex [Ferrex 150] 150 mg PO DAILYCM #30 capsule 07/24/18 Rifampin [Rifadin] 600 mg PO DAILY capsule 07/24/18 Following Prescrptions Were Given to Patient: Doxycycline 100 mg PO BID #60 capsule Iron Polysaccharide Complex [Ferrex 150] 150 mg PO DAILYCM #30 capsule Primary Care Physician: Ximena Haines MD [Primary Care Provider] - Please follow up with your Primary Care Physician in: 1-2 weeks Please Follow Up With: Ector Vicente MD When: 2 weeks Please Follow Up With: Ximena Haines MD Disposition: Home Minutes spent on discharge:: 35 Patient Condition:: Stable Medical Necessity - Tobacco Use Smoking Status: Never smoker Meaningful Use Info Meaningful Use Diagnoses (Choose all that apply): None applicable <Jesus Bryan - Last Filed: 07/24/18 15:00> Discharge Date and Diagnosis - Secondary Discharge Diagnosis Chronic Problems (Last Reviewed 07/22/18 @ 05:48 by Andi Barakat MD) Atherosclerotic heart disease of [place] coronary artery without angina pectoris (Chronic) BILL to mid LAD w/ 2.75 X 20 Synergy 05/31/18 POBA-ISR mid-LAD 06/02/18 Hemorrhagic cerebrovascular accident (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 Data reviewed. I agree with the above note by the physician pharmacy technician assistant. 1. acute metabolic encephalopathy * resolved * possibly du to SIRS 2. SIRS * POA * etiology unclear * may have been viral * doubt due to medication, as he has taken the abx today without issues. 3. Diarrhea * Likely antibiotics associated. * C. difficile and enteric bacteria were negative. * Started on Imodium * changed from doxycycline from keflex. [] - Physical Exam General: Alert, Cooperative, - - up in chair. NAD. HEENT: Atraumatic, Normocephalic Psych/Mental Status: Normal Affect, Appropriate Vital Signs Temp Pulse Resp BP Pulse Ox 36.9 C 81 20 H 133/71 H 94 07/24/18 11:12 07/24/18 11:12 07/24/18 11:12 07/24/18 11:12 07/24/18 11:12 Oxygen Delivery Method Room Air Weight: 76.1 kg Body Mass Index (BMI) 26.2 Finger Stick Blood Glucose 99 Intake and Output for Last 24 Hours 07/22/18 07/23/18 07/24/18 23:59 23:59 23:59 Intake Total 1200 / 1200 550 / 550 490 / 490 Output Total 200 / 200 Balance 1000 / 1000 550 / 550 490 / 490 Microbiology Past 72 Hours 07/21/18 23:35 Blood Culture - Preliminary Blood Culture (Wb) - Right Forearm No growth in 48 hours. 07/21/18 23:30 Blood Culture - Preliminary Blood Culture (Wb) - Anticubital Right No growth in 48 hours. 07/21/18 11:52 Enteric Bacteriology - Final Stool 07/21/18 11:52 C. difficile DNA Amplification - Final Stool 07/21/18 11:52 Stool Lactoferrin - Final Stool Laboratory Tests Past 24 Hrs 07/24/18 07/24/18 06:41 06:41 WBC 4.1 L RBC 3.43 L Hgb 9.2 L Hct 28.7 L MCV 83.7 MCH 26.8 L MCHC 32.1 RDW 15.7 H RDW Differential 48.1 H Plt Count 277 MPV 8.8 Immature Gran % (Auto) 0.500 Neut % (Auto) 59.0 Lymph % (Auto) 24.4 [place] % (Auto) 11.7 H Eos % (Auto) 3.9 Baso % (Auto) 0.5 Absolute Neuts (auto) 2.4 Absolute Lymphs (auto) 1.00 Total Counted Not Reportable Sodium 136 Potassium 3.5 Chloride 113 H Carbon Dioxide 16.0 L Anion Gap 7 BUN 11 Creatinine 0.83 Estim Creat Clear Calc 63.05 Est GFR (MDRD) Af Amer 114 Est GFR (MDRD) Non-Af 94 BUN/Creatinine Ratio 13.3 Glucose 99 Calcium 7.9 L Discharge Diet: Low fat/ Low Cholesterol, 2000 mg Sodium Diet Discharge Activity: Return to Normal Activity Disposition: Home Minutes spent on discharge:: 35 Patient Condition:: Stable Medical Necessity - Tobacco Use Smoking Status: Never smoker Meaningful Use Info Meaningful Use Diagnoses (Choose all that apply): None applicable Code Visit Inpatient E&M: 58590 Disch Hosp
--- NOTE | 2018-07-26 14:37 | CASEMGMT ---
AMANDA [facility] DC PHONE CALL DC DATE: 07/24/18 DC Disposition: Home LACE/STRATA: 02/09 Attempted call to Home phone. No answer and no message left as there was nopersonal identifier on message.
== END 2018-07-24 11:48 | disposition home or self-care (01) | DRG 71 ==
LOC: ED 07-22 01:28 → PCU 07-22 03:03
PROVIDERS: Physician Assistant; Admitting Provider Hospitalist; Emergency Provider Emergency Medicine; Family Provider Internal Medicine; PCP Internal Medicine; Referring Provider Hospitalist
DX: G93.41 Metabolic encephalopathy (principal); R65.10 Systemic inflammatory response syndrome (SIRS) of non-infectious origin without acute organ dysfunction; T84.54XA Infection and inflammatory reaction due to internal left knee prosthesis, initial encounter; B95.61 Methicillin susceptible Staphylococcus aureus infection as the cause of diseases classified elsewhere; R19.7 Diarrhea, unspecified; N40.0 Benign prostatic hyperplasia without lower urinary tract symptoms; E66.9 Obesity, unspecified; I10 Essential (primary) hypertension; E78.5 Hyperlipidemia, unspecified; D50.9 Iron deficiency anemia, unspecified; Z86.73 Personal history of transient ischemic attack (TIA), and cerebral infarction without residual deficits; Z86.19 Personal history of other infectious and parasitic diseases; Z68.27 Body mass index [BMI] 27.0-27.9, adult; I70.1 Atherosclerosis of renal artery; E03.9 Hypothyroidism, unspecified; G47.33 Obstructive sleep apnea (adult) (pediatric); K90.0 Celiac disease; N52.9 Male erectile dysfunction, unspecified; Z45.2 Encounter for adjustment and management of vascular access device; Z79.2 Long term (current) use of antibiotics; Z79.899 Other long term (current) drug therapy; Z79.82 Long term (current) use of aspirin; Z72.0 Tobacco use
CPT/HCPCS: 36415; 70450; 71045; 80048; 80053; 80076; 81001; 82962; 83540; 83550; 83605; 83630; 84443; 85025; 85027; 85652; 87040; 87177; 87209; 87493; 87506; 93005; 99285; 99406; J1756; J7030; A4216

== ENCOUNTER → 2018-08-26 | Outpatient (CLI) | payer MEDICARE, SELFPAY ==
[2018-08-23 12:23] VITALS: BMI 26.2
[2018-08-26 11:26] LABS: Absolute Lymphocyte Count 1.24 X10^3/ul (0.83-4.51); Absolute Neutrophil Count 1.8 X10^3/uL (2.0-7.7); Basophil# 0.03 X10^3/uL; Basophil% 0.8 % (0-1); Eosinophil# 0.15 X10^3/uL; Eosinophils% 4.2 % (0-5); Erythrocyte Sedimentation Rate 5 mm/hr (0-20); Hematocrit 29.5 % (40-54); Hemoglobin 9.3 g/dl (13.0-16.5); Lymphocyte # 1.24 X10^3/ul (4.0); Lymphocyte % 34.3 % (19-41); Mean Corp Hgb Conc 31.5 g/gl (32-36); Mean Corpuscular Hgb 27.2 pg (27.0-32.0); Mean Corpuscular Volume 86.3 fL (80-94); Mean Platelet Vol. 10.7 fl (6.2-12.0); Monocyte# 0.41 X10^3/uL; Monocyte% 11.4 % (0-10); Neutrophil # 1.77 X10^3/uL (2.7-7.7); Platelet Count 225 K/mm3 (150-450); RBC Distribution Width CV 15.9 % (11.6-14.6); RBC Distribution Width SD 48.3 fl (35.1-43.9); Red Blood Count 3.42 M/mm3 (4.6-6.2); White Blood Count 3.6 K/mm3 (4.4-11.0)
[2018-08-26 11:27] LABS: POSITIVE COUNT NO; POSITIVE DIFFERENTIAL NO; POSITIVE MORPHOLOGY NO
[2018-08-26 11:29] LABS: ALB/GLOB Ratio 0.8 RATIO (0.9-2.4); AST(SGOT) 24 U/L (15-37); Alanine Aminotransfer ALT/SGPT 18 U/L (16-61); Albumin, Serum 2.9 g/dL (3.2-5.0); Alkaline Phosphatase 86 U/L (45-117); Anion Gap 5 (5-15); BUN 25 mg/dL (7-18); BUN/Creat Ratio 22.5 RATIO (10-20); Calcium,Total 8.3 mg/dL (8.5-10.1); Chloride 108 mmol/L (98-107); Creatinine, Serum 1.11 mg/dL (0.70-1.30); EST Glomerular Filtration Rate 67 mL/min (>60); Est Glom Filt Rate - Afr Amer 81 mL/min (>60); Ferritin 76 ng/mL (26-388); Globulin 3.7 g/dL (2.2-4.2); Glucose 94 mg/dL (74-106); Potassium 3.7 mmol/L (3.5-5.1); Protein, Total 6.6 g/dL (6.4-8.2); Sodium Level 139 mmol/L (136-145)
== END | disposition home or self-care (01) ==
LOC: LAB.FUTURE 09:58
PROVIDERS: Family Provider Internal Medicine; PCP Internal Medicine; Referring Provider Internal Medicine Infectious Disease; Visit Provider Internal Medicine Infectious Disease
DX: D62 Acute posthemorrhagic anemia (principal); T84.59XA Infection and inflammatory reaction due to other internal joint prosthesis, initial encounter
CPT/HCPCS: 36415; 80053; 82728; 85025; 85652

== ENCOUNTER → 2018-12-08 | Outpatient (CLI) | payer MEDICARE, SELFPAY ==
[2018-10-26 15:10] VITALS: BMI 27.9
--- NOTE | 2018-12-08 11:00 | MRI_ITS ---
STUDY: MRI LUMBAR SPINE WITHOUT CONTRAST REASON FOR EXAM: Male, 83 years old. Low back pain, left leg pain and weakness. TECHNIQUE: Standardized fat and water weighted pulse sequences were obtained in the sagittal and axial planes. COMPARISON: 04/28/2013 FINDINGS: T12-L1: Disc desiccation but no disc protrusion, spinal stenosis, or neural foraminal stenosis. Normal lumbar lordosis. Mild levoscoliosis centered at L3/L4. Normal conus medullaris that terminates at the L1. L1-2: Disc desiccation but no disc protrusion, spinal stenosis, or neural foraminal stenosis. L2-3: Disc desiccation but no disc protrusion, spinal stenosis, or neural foraminal stenosis. L3-4: Mild bilateral facet hypertrophy and severe ligament flavum hypertrophy. Moderate broad disc protrusion produces severe spinal stenosis with moderate bilateral lateral recess stenosis with abutment of the elbow for nerve roots bilaterally and moderate bilateral neural foraminal stenosis with abutment of the exiting L3 nerve roots bilaterally. L4-5: Mild bilateral facet hypertrophy and ligament flavum hypertrophy. 5 mm retrolisthesis of L4 and L5 with a mild broad disc protrusion produces moderate spinal stenosis with mild bilateral lateral recess stenosis and moderate bilateral neural foraminal stenosis with abutment of the exiting L4 nerve roots bilaterally. L5-S1: Bilateral pars defect of the L5 vertebra consistent with spondylolysis. 5 mm of anterolisthesis of L5 on S1 consistent with grade 1 spondylolisthesis. Mild broad disc protrusion produces mild spinal stenosis but severe bilateral neural foraminal stenosis with effacement of the L5 nerve roots bilaterally. Normal visualized sacral ala. Normal visualized paraspinous soft tissue structures. MRI/Spine Lumbar (Routine) IMPRESSION: 1. 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 2. Levoscoliosis and other degenerative disc disease as described above. Electronically Signed: Luis Alberto Alberto MD at 16:55 EDT Tel , Service support ,
== END | disposition home or self-care (01) ==
PROVIDERS: Family Provider Internal Medicine; PCP Internal Medicine; Referring Provider Anesthesiology Pain Medicine; Visit Provider Anesthesiology Pain Medicine
DX: R53.1 Weakness (principal); R29.818 Other symptoms and signs involving the nervous system
CPT/HCPCS: 72148

== ENCOUNTER → 2018-12-16 | Outpatient (CLI) | payer MEDICARE, SELFPAY ==
[2018-10-26 15:10] VITALS: BMI 27.9
[2018-12-16 14:18] LABS: Absolute Lymphocyte Count 1.36 X10^3/uL (0.83-4.51); Absolute Neutrophil Count 2.5 X10^3/uL (2.0-7.7); Basophil# 0.04 X10^3/uL; Basophil% 0.8 % (0-1); Eosinophil# 0.17 X10^3/uL; Eosinophils% 3.6 % (0-5); Hematocrit 33.4 % (40-54); Hemoglobin 11.1 g/dL (13.0-16.5); Lymphocyte # 1.36 X10^3/ul (4.0); Lymphocyte % 28.8 % (19-41); Mean Corp Hgb Conc 33.2 g/dL (32-36); Mean Corpuscular Hgb 29.5 pg (27.0-32.0); Mean Corpuscular Volume 88.8 fL (80-94); Mean Platelet Vol. 10.9 fl (6.2-12.0); Monocyte% 12.7 % (0-10); NRBC Flagged by Analyzer 0 % (0-5); Neutrophil # 2.54 X10^3/uL (2.7-7.7); Neutrophil % 53.9 % (47-70); Platelet Count 246 K/mm3 (150-450); RBC Distribution Width SD 52.1 fl (35.1-43.9); Red Blood Count 3.76 M/mm3 (4.6-6.2); White Blood Count 4.7 K/mm3 (4.4-11.0)
[2018-12-16 14:30] LABS: ALB/GLOB Ratio 0.8 RATIO (0.9-2.4); AST(SGOT) 24 U/L (15-37); Alanine Aminotransfer ALT/SGPT 26 U/L (16-61); Albumin, Serum 3.1 g/dL (3.2-5.0); Alkaline Phosphatase 59 U/L (45-117); Anion Gap 9 (5-15); BUN 29 mg/dL (7-18); BUN/Creat Ratio 24.6 RATIO (10-20); Chloride 108 mmol/L (98-107); Creatinine, Serum 1.18 mg/dL (0.70-1.30); EST Glomerular Filtration Rate 63 mL/min (>60); Est Glom Filt Rate - Afr Amer 76 mL/min (>60); Globulin 3.7 g/dL (2.2-4.2); Glucose 81 mg/dL (74-106); Potassium 4.5 mmol/L (3.5-5.1); Protein, Total 6.8 g/dL (6.4-8.2); Sodium Level 142 mmol/L (136-145); Uric Acid 7.5 mg/dL (3.5-7.2)
== END | disposition home or self-care (01) ==
LOC: MTLAB 11:26
PROVIDERS: Family Provider Internal Medicine; PCP Internal Medicine; Referring Provider Internal Medicine Rheumatology; Visit Provider Internal Medicine Rheumatology
DX: M06.4 Inflammatory polyarthropathy (principal); K90.0 Celiac disease; M81.0 Age-related osteoporosis without current pathological fracture; E78.5 Hyperlipidemia, unspecified; E03.9 Hypothyroidism, unspecified; N40.0 Benign prostatic hyperplasia without lower urinary tract symptoms
CPT/HCPCS: 36415; 80053; 84550; 85025

== ENCOUNTER → 2019-01-21 | Outpatient (CLI) | payer MEDICARE, SELFPAY ==
[2018-10-26 15:10] VITALS: BMI 27.9
[2019-01-21 12:27] LABS: ALB/GLOB Ratio 1.1 RATIO (0.9-2.4); AST(SGOT) 26 U/L (15-37); Alanine Aminotransfer ALT/SGPT 28 U/L (16-61); Albumin, Serum 3.2 g/dL (3.2-5.0); Alkaline Phosphatase 52 U/L (45-117); Anion Gap 6 (5-15); BUN 25 mg/dL (7-18); BUN/Creat Ratio 25.3 RATIO (10-20); Calcium,Total 8.6 mg/dL (8.5-10.1); Chloride 109 mmol/L (98-107); Creatinine, Serum 0.99 mg/dL (0.70-1.30); EST Glomerular Filtration Rate 77 mL/min (>60); Est Glom Filt Rate - Afr Amer 93 mL/min (>60); Glucose 83 mg/dL (74-106); Potassium 4.3 mmol/L (3.5-5.1); Protein, Total 6.2 g/dL (6.4-8.2); Sodium Level 142 mmol/L (136-145)
[2019-01-21 12:31] LABS: Absolute Lymphocyte Count 1.21 X10^3/uL (0.83-4.51); Absolute Neutrophil Count 2.3 X10^3/uL (2.0-7.7); Basophil# 0.04 X10^3/uL; Basophil% 0.9 % (0-1); Eosinophil# 0.19 X10^3/uL; Eosinophils% 4.3 % (0-5); Hematocrit 33.1 % (40-54); Hemoglobin 11.1 g/dL (13.0-16.5); Lymphocyte # 1.21 X10^3/ul (4.0); Lymphocyte % 27.7 % (19-41); Mean Corp Hgb Conc 33.5 g/dL (32-36); Mean Corpuscular Hgb 30.9 pg (27.0-32.0); Mean Corpuscular Volume 92.2 fL (80-94); Monocyte# 0.57 X10^3/uL; NRBC Flagged by Analyzer 0 % (0-5); Neutrophil # 2.34 X10^3/uL (2.7-7.7); Neutrophil % 53.6 % (47-70); Platelet Count 220 K/mm3 (150-450); RBC Distribution Width CV 14.8 % (11.6-14.6); RBC Distribution Width SD 50.4 fl (35.1-43.9); Red Blood Count 3.59 M/mm3 (4.6-6.2); White Blood Count 4.4 K/mm3 (4.4-11.0)
[2019-01-21 12:43] LABS: Erythrocyte Sedimentation Rate 2 mm/hr (0-20)
[2019-01-24 14:50] LABS: CPK Total, Creatine Kinase 157 U/L (39-308); CRP < 2.90 mg/L (0.0-3.0)
== END | disposition home or self-care (01) ==
LOC: MTLAB 10:19
PROVIDERS: Family Provider Internal Medicine; PCP Internal Medicine; Referring Provider Internal Medicine Infectious Disease; Visit Provider Internal Medicine Infectious Disease
DX: T84.59XA Infection and inflammatory reaction due to other internal joint prosthesis, initial encounter (principal)
CPT/HCPCS: 36415; 80053; 82550; 85025; 85652; 86140

== ENCOUNTER → 2019-07-23 10:08 | Outpatient (CLI) | payer MEDICARE, SELFPAY ==
[2019-03-29 08:58] VITALS: BMI 28.8
[2019-07-23 10:36] LABS: Absolute Lymphocyte Count 1.55 X10^3/uL (0.83-4.51); Absolute Neutrophil Count 2.6 X10^3/uL (2.0-7.7); Basophil# 0.05 X10^3/uL; Eosinophil# 0.19 X10^3/uL; Eosinophils% 3.8 % (0-5); Hematocrit 37.5 % (40-54); Hemoglobin 12.3 g/dL (13.0-16.5); Lymphocyte # 1.55 X10^3/ul (4.0); Lymphocyte % 31.1 % (19-41); Mean Corp Hgb Conc 32.8 g/dL (32-36); Mean Corpuscular Hgb 30.6 pg (27.0-32.0); Mean Corpuscular Volume 93.3 fL (80-94); Mean Platelet Vol. 10.2 fl (6.2-12.0); Monocyte# 0.63 X10^3/uL; Monocyte% 12.7 % (0-10); NRBC Flagged by Analyzer 0 % (0-5); Neutrophil # 2.55 X10^3/uL (2.7-7.7); Neutrophil % 51.2 % (47-70); Platelet Count 283 K/mm3 (150-450); RBC Distribution Width CV 14.2 % (11.6-14.6); RBC Distribution Width SD 48.3 fl (35.1-43.9); Red Blood Count 4.02 M/mm3 (4.6-6.2)
[2019-07-23 10:52] LABS: ALB/GLOB Ratio 0.9 RATIO (0.9-2.4); AST(SGOT) 26 U/L (15-37); Alanine Aminotransfer ALT/SGPT 30 U/L (16-61); Albumin, Serum 3.2 g/dL (3.2-5.0); Alkaline Phosphatase 47 U/L (45-117); Anion Gap 6 (5-15); BUN 23 mg/dL (7-18); BUN/Creat Ratio 20.7 RATIO (10-20); Calcium,Total 8.8 mg/dL (8.5-10.1); Chloride 107 mmol/L (98-107); Creatinine, Serum 1.11 mg/dL (0.70-1.30); EST Glomerular Filtration Rate 67 mL/min (>60); Est Glom Filt Rate - Afr Amer 81 mL/min (>60); Globulin 3.5 g/dL (2.2-4.2); Glucose 78 mg/dL (74-106); Potassium 4.7 mmol/L (3.5-5.1); Protein, Total 6.7 g/dL (6.4-8.2); Sodium Level 142 mmol/L (136-145); Uric Acid 6.1 mg/dL (3.5-7.2)
== END ==
PROVIDERS: PCP Internal Medicine; Referring Provider Internal Medicine Rheumatology; Visit Provider Internal Medicine Rheumatology
DX: M06.4 Inflammatory polyarthropathy (principal); K90.0 Celiac disease; M81.0 Age-related osteoporosis without current pathological fracture; E78.5 Hyperlipidemia, unspecified; E03.9 Hypothyroidism, unspecified; N40.0 Benign prostatic hyperplasia without lower urinary tract symptoms
CPT/HCPCS: 36415; 80053; 84550; 85025

== ENCOUNTER → 2020-01-19 11:47 | Outpatient (CLI) | payer MEDICARE, SELFPAY ==
[2019-09-30 11:02] VITALS: BMI 28.2
[2020-01-19 15:41] LABS: Absolute Lymphocyte Count 1.26 X10^3/uL (0.83-4.51); Basophil# 0.03 X10^3/uL; Basophil% 0.6 % (0-1); Eosinophil# 0.08 X10^3/uL; Eosinophils% 1.6 % (0-5); Hematocrit 36.3 % (40-54); Hemoglobin 11.5 g/dL (13.0-16.5); Lymphocyte # 1.26 X10^3/ul (4.0); Lymphocyte % 25.8 % (19-41); Mean Corp Hgb Conc 31.7 g/dL (32-36); Mean Corpuscular Hgb 29.8 pg (27.0-32.0); Mean Platelet Vol. 11.8 fl (6.2-12.0); Monocyte# 0.46 X10^3/uL; Monocyte% 9.4 % (0-10); NRBC Flagged by Analyzer 0 % (0-5); Neutrophil # 3.04 X10^3/uL (2.7-7.7); Neutrophil % 62.4 % (47-70); Platelet Count 205 K/mm3 (150-450); RBC Distribution Width CV 13.3 % (11.6-14.6); RBC Distribution Width SD 45.9 fl (35.1-43.9); Red Blood Count 3.86 M/mm3 (4.6-6.2); White Blood Count 4.9 K/mm3 (4.4-11.0)
[2020-01-19 16:08] LABS: AST(SGOT) 20 U/L (15-37); Alanine Aminotransfer ALT/SGPT 30 U/L (16-61); Albumin, Serum 3.7 g/dL (3.2-5.0); Alkaline Phosphatase 49 U/L (45-117); Anion Gap 4 (5-15); BUN 31 mg/dL (7-18); BUN/Creat Ratio 24.2 RATIO (10-20); Calcium,Total 8.7 mg/dL (8.5-10.1); Chloride 107 mmol/L (98-107); Creatinine, Serum 1.28 mg/dL (0.70-1.30); EST Glomerular Filtration Rate 57 mL/min (>60); Est Glom Filt Rate - Afr Amer 69 mL/min (>60); Globulin 3.7 g/dL (2.2-4.2); Glucose 84 mg/dL (74-106); Potassium 4.5 mmol/L (3.5-5.1); Protein, Total 7.4 g/dL (6.4-8.2); Sodium Level 141 mmol/L (136-145); Uric Acid 7.7 mg/dL (3.5-7.2)
== END ==
PROVIDERS: PCP Internal Medicine; Referring Provider Internal Medicine Rheumatology; Visit Provider Internal Medicine Rheumatology
DX: M06.4 Inflammatory polyarthropathy (principal); K90.0 Celiac disease; M81.0 Age-related osteoporosis without current pathological fracture; E78.5 Hyperlipidemia, unspecified; E03.9 Hypothyroidism, unspecified; N40.0 Benign prostatic hyperplasia without lower urinary tract symptoms
CPT/HCPCS: 36415; 80053; 84550; 85025

== ENCOUNTER → 2020-07-05 10:23 | Outpatient (CLI) | payer MEDICARE, SELFPAY ==
[2020-04-04 10:49] VITALS: BMI 27.7
[2020-07-05 12:11] LABS: Absolute Lymphocyte Count 0.89 X10^3/uL (0.83-4.51); Absolute Neutrophil Count 3.3 X10^3/uL (2.0-7.7); Basophil# 0.04 X10^3/uL; Basophil% 0.9 % (0-1); Eosinophil# 0.06 X10^3/uL; Eosinophils% 1.3 % (0-5); Hemoglobin 9.7 g/dL (13.0-16.5); Lymphocyte # 0.89 X10^3/ul (0.83-4.51); Mean Corp Hgb Conc 31.3 g/dL (32-36); Mean Corpuscular Hgb 29.3 pg (27.0-32.0); Mean Corpuscular Volume 93.7 fL (80-94); Mean Platelet Vol. 11.3 fl (6.2-12.0); Monocyte# 0.43 X10^3/uL; Monocyte% 9.2 % (0-10); NRBC Flagged by Analyzer 0 % (0-5); Neutrophil # 3.25 X10^3/uL (2.7-7.7); Neutrophil % 69.4 % (47-70); Platelet Count 237 K/mm3 (150-450); RBC Distribution Width CV 13.9 % (11.6-14.6); RBC Distribution Width SD 47.6 fl (35.1-43.9); Red Blood Count 3.31 M/mm3 (4.6-6.2); White Blood Count 4.7 K/mm3 (4.4-11.0)
[2020-07-05 12:21] LABS: ALB/GLOB Ratio 1.1 RATIO (0.9-2.4); AST(SGOT) 24 U/L (15-37); Alanine Aminotransfer ALT/SGPT 22 U/L (16-61); Albumin, Serum 3.5 g/dL (3.2-5.0); Alkaline Phosphatase 48 U/L (45-117); Anion Gap 6 (5-15); BUN 26 mg/dL (7-18); Calcium,Total 8.9 mg/dL (8.5-10.1); Chloride 107 mmol/L (98-107); EST Glomerular Filtration Rate 56 mL/min (>60); Est Glom Filt Rate - Afr Amer 67 mL/min (>60); Globulin 3.3 g/dL (2.2-4.2); Glucose 86 mg/dL (74-106); Potassium 4.2 mmol/L (3.5-5.1); Protein, Total 6.8 g/dL (6.4-8.2); Sodium Level 140 mmol/L (136-145); Uric Acid 6.8 mg/dL (3.5-7.2)
== END ==
PROVIDERS: PCP Internal Medicine; Referring Provider Internal Medicine Rheumatology; Visit Provider Internal Medicine Rheumatology
DX: M06.4 Inflammatory polyarthropathy (principal); K90.0 Celiac disease; M81.0 Age-related osteoporosis without current pathological fracture; E78.5 Hyperlipidemia, unspecified; E03.9 Hypothyroidism, unspecified; N40.0 Benign prostatic hyperplasia without lower urinary tract symptoms
CPT/HCPCS: 36415; 80053; 84550; 85025

== ENCOUNTER → 2020-10-08 13:13 | Outpatient (CLI) | payer MEDICARE, SELFPAY ==
[2020-04-04 10:49] VITALS: BMI 27.7
[2020-10-08 13:28] LABS: Absolute Lymphocyte Count 1.03 X10^3/uL (0.83-4.51); Absolute Neutrophil Count 7.3 X10^3/uL (2.0-7.7); Basophil# 0.02 X10^3/uL; Basophil% 0.2 % (0-1); Eosinophil# 0.04 X10^3/uL; Eosinophils% 0.4 % (0-5); Hematocrit 33.8 % (40-54); Hemoglobin 11.1 g/dL (13.0-16.5); Lymphocyte # 1.03 X10^3/ul (0.83-4.51); Lymphocyte % 11.1 % (19-41); Mean Corp Hgb Conc 32.8 g/dL (32-36); Mean Corpuscular Hgb 29.2 pg (27.0-32.0); Mean Corpuscular Volume 88.9 fL (80-94); Mean Platelet Vol. 10.9 fl (6.2-12.0); Monocyte# 0.84 X10^3/uL; Monocyte% 9.1 % (0-10); NRBC Flagged by Analyzer 0 % (0-5); Neutrophil % 78.7 % (47-70); Platelet Count 224 K/mm3 (150-450); RBC Distribution Width CV 14.4 % (11.6-14.6); RBC Distribution Width SD 46.4 fl (35.1-43.9); White Blood Count 9.3 K/mm3 (4.4-11.0)
[2020-10-08 13:51] LABS: ALB/GLOB Ratio 1.2 RATIO (0.9-2.4); AST(SGOT) 19 U/L (15-37); Alanine Aminotransfer ALT/SGPT 23 U/L (16-61); Albumin, Serum 3.4 g/dL (3.2-5.0); Alkaline Phosphatase 47 U/L (45-117); Anion Gap 8 (5-15); BUN 24 mg/dL (7-18); BUN/Creat Ratio 22.4 RATIO (10-20); Calcium,Total 8.5 mg/dL (8.5-10.1); Chloride 108 mmol/L (98-107); Creatinine, Serum 1.07 mg/dL (0.70-1.30); EST Glomerular Filtration Rate 70 mL/min (>60); Est Glom Filt Rate - Afr Amer 84 mL/min (>60); Globulin 2.9 g/dL (2.2-4.2); Glucose 97 mg/dL (74-106); Potassium 4.4 mmol/L (3.5-5.1); Protein, Total 6.3 g/dL (6.4-8.2); Sodium Level 138 mmol/L (136-145)
== END ==
PROVIDERS: PCP Internal Medicine; Referring Provider Internal Medicine; Visit Provider Internal Medicine
DX: R11.2 Nausea with vomiting, unspecified (principal); R19.7 Diarrhea, unspecified
CPT/HCPCS: 80053; 85025

== ENCOUNTER → 2020-12-03 12:02 | Outpatient (CLI) | payer MEDICARE, SELFPAY ==
[2020-12-03 15:40] LABS: Thyroid Stim Hormone (TSH) 1.67 uIU/mL (0.358-3.74)
== END ==
PROVIDERS: PCP Internal Medicine; Referring Provider Internal Medicine; Visit Provider Internal Medicine
DX: E03.9 Hypothyroidism, unspecified (principal)
CPT/HCPCS: 36415; 84443

== ENCOUNTER → 2021-01-02 10:25 | Outpatient (CLI) | payer MEDICARE, SELFPAY ==
[2021-01-02 12:06] LABS: Absolute Lymphocyte Count 0.98 X10^3/uL (0.83-4.51); Basophil# 0.05 X10^3/uL; Basophil% 1.4 % (0-1); Eosinophil# 0.02 X10^3/uL; Eosinophils% 0.6 % (0-5); Hemoglobin 8.4 g/dL (13.0-16.5); Lymphocyte # 0.98 X10^3/ul (0.83-4.51); Lymphocyte % 27.8 % (19-41); Mean Corp Hgb Conc 31.1 g/dL (32-36); Mean Corpuscular Hgb 26.7 pg (27.0-32.0); Mean Corpuscular Volume 85.7 fL (80-94); Mean Platelet Vol. 10.4 fl (6.2-12.0); Monocyte# 0.44 X10^3/uL; Monocyte% 12.5 % (0-10); NRBC Flagged by Analyzer 0 % (0-5); Neutrophil # 2.02 X10^3/uL (2.7-7.7); Neutrophil % 57.4 % (47-70); Platelet Count 271 K/mm3 (150-450); RBC Distribution Width CV 15.6 % (11.6-14.6); RBC Distribution Width SD 49.1 fl (35.1-43.9); Red Blood Count 3.15 M/mm3 (4.6-6.2); White Blood Count 3.5 K/mm3 (4.4-11.0)
[2021-01-02 12:31] LABS: AST(SGOT) 22 U/L (15-37); Alanine Aminotransfer ALT/SGPT 24 U/L (16-61); Albumin, Serum 3.4 g/dL (3.2-5.0); Alkaline Phosphatase 50 U/L (45-117); Anion Gap 8 (5-15); BUN 24 mg/dL (7-18); BUN/Creat Ratio 20.3 RATIO (10-20); Calcium,Total 9.1 mg/dL (8.5-10.1); Chloride 104 mmol/L (98-107); Creatinine, Serum 1.18 mg/dL (0.70-1.30); EST Glomerular Filtration Rate 62 mL/min (>60); Est Glom Filt Rate - Afr Amer 75 mL/min (>60); Globulin 3.3 g/dL (2.2-4.2); Glucose 84 mg/dL (74-106); Potassium 4.2 mmol/L (3.5-5.1); Protein, Total 6.7 g/dL (6.4-8.2); Sodium Level 138 mmol/L (136-145); Uric Acid 6.1 mg/dL (3.5-7.2)
== END ==
PROVIDERS: PCP Internal Medicine; Referring Provider Internal Medicine Rheumatology; Visit Provider Internal Medicine Rheumatology
DX: M06.4 Inflammatory polyarthropathy (principal); K90.0 Celiac disease; M81.0 Age-related osteoporosis without current pathological fracture; E78.5 Hyperlipidemia, unspecified; E03.9 Hypothyroidism, unspecified; N40.0 Benign prostatic hyperplasia without lower urinary tract symptoms
CPT/HCPCS: 36415; 80053; 84550; 85025

== ENCOUNTER → 2021-01-23 15:36 | Outpatient (CLI) | payer MEDICARE, SELFPAY ==
--- NOTE | 2021-01-22 | IMM_PTH ---
PATIENT: DELROY TIPTON LOC: [facility] U#:[id number] AGE/SX: 89/M ROOM: RE01/23/[address]: Dr. Renato Foster MD : 1935 BED: DIS: SPEC #: [id number] RECD: 01/25/21 13:33 STATUS: CINTHIA REMayra #: [id number] NICOLASA: 01/22/21 00:[address]: Renato Foster DEPT: IMMUNOHISTOCHEMISTRY RECD BY: Torie Alas ENTERED: 01/25/21 13:34 SP TYPE: IMMUNO OTHR DR: Dr. Ximena Haines MD Tissues: Intervertebral disc, NOS Procedures: CD138 (add) CD20 (add) CD3 (add) CD45 (add) CD5 (add) CD79A (add) Pankeratin (initial) PHYSICIAN & INSTITUTION [place] [id number] SPECIMEN INFORMATION: Tissue Source: Body of L2 Clinical Info: Compression fracture of lumbar spine Specimen Number: [id number] CPT code: 11860, 99713 x6 METHODOLOGY: Deparaffinized sections of prefer/formalin-fixed tissue or PAP/DQ stained slides are incubated with monoclonal/polyclonal antibodies/oligonucleotide probes. Localization is made via biotin free immunoperoxidase method. Appropriate controls are performed and reacted as expected. Results on target cell population are indicated in the following table: RESULTS: ANTIBODY / CLONE RESULT AE1-3 (AE1/AE3/PCK26) negative CD3 (PS1) positive CD5 (SP10) positive CD20 (L26) positive CD45 (RP2/18) positive CD79a (11E3) positive CD138 (B-A38) negative These tests were developed and their performance characteristics determined by [facility]. They may not have been cleared or approved by the U.S. Food and Drug Administration. The FDA has determined that such clearance or approval is not necessary. The above immunohistochemical/dualISH markers are ordered and reviewed by the Pathologist. INTERPRETATION: Body of L2: Polytypic benign lymphoid aggregate. AM:alma 01/28/2021
--- NOTE | 2021-01-22 13:47 | BONBX_PTH ---
PATIENT: DELROY TIPTON LOC: [facility] U#:[id number] AGE/SX: 89/M ROOM: RE01/23/[address]: Dr. Renato Foster MD : 1935 BED: DIS: SPEC #: [id number] RECD: 01/23/21 14:56 STATUS: CINTHIA URVASHI #: [id number] NICOLASA: 01/22/21 13:[address]: Renato Foster DEPT: SURGICAL PATHOLOGY RECD BY: Darcy Edwards ENTERED: 01/24/21 08:30 SP TYPE: Bone OTHR DR: Dr. Ximena Haines MD [facility] Tissues: Intervertebral disc, NOS Procedures: Decalcification bone/plaque Surgery Specimen Level V HEADER OPERATION: Kyphoplasty L2 PRE-OP DIAGNOSIS: Compression fracture of lumbar spine TISSUE SUBMITTED: Body of L2 MICROSCOPIC DIAGNOSIS Bone of L2 lumbar spine, biopsy: Trilineage hematopoiesis. Benign lymphoid aggregate. See comment. AM:alma 01/25/2021 COMMENT Immunohistochemistry ([id number]) supports the above diagnosis. MICROSCOPIC DESCRIPTION Slides are reviewed. GROSS DESCRIPTION Received is one container labeled with the patient's name and not further designated. The specimen consists of an elongated piece of bone measuring 1 cm in length and 0.2 cm in diameter. The entire specimen is submitted in one cassette after decalcification. / SJ:alma 01/24/21 TC:1 CPT: 88976, 42108
== END ==
PROVIDERS: PCP Internal Medicine; Visit Provider Anesthesiology Pain Medicine
DX: S32.000A Wedge compression fracture of unspecified lumbar vertebra, initial encounter for closed fracture (principal)
CPT/HCPCS: 88307; 88311; 88341; 88342

== ENCOUNTER 2021-04-30 11:42 | Emergency (ER) | payer MEDICARE, SELFPAY ==
[2021-04-30 11:44] VITALS: BP 112/79; PULSE 62; RESP 14; TEMP 36.4; O2SAT 95; BMI 28.8
--- NOTE | 2021-04-30 14:05 | EDS_ITS ---
HPI History of Present Illness Chief Complaint: Back Narrative Narrative: 85-year-old male presenting with back pain. He states he has had back pain for the past 5 years. Denies any recent injury. He follows with pain management, Dr. Blevins. He states he had too much pain on Thursday to make his appointment so he was started on steroids. He had a mechanical fall today. He did not hit his head or lose consciousness. He complains of left knee pain. He also complains of left groin pain and has been told in the past that he has a hernia. He takes tramadol for pain. Denies fever. Denies bowel or bladder incontinence. He is able to ambulate with pain. Denies chest pain or shortness of breath. 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 lactis 1 ea PO DAILY 10/25/15 [History Last Taken 06/06/18] hydroxychloroquine 200 mg PO BIDCM 10/25/15 [History Last Taken 06/06/18] cholecalciferol (vitamin D3) 5,000 unit PO QHS 06/05/18 [History Last Taken 06/05/18] cyanocobalamin (vitamin B-12) 1,000 mcg PO BID 06/05/18 [History Last Taken 06/06/18] nifedipine 30 mg PO DAILY PRN 07/22/18 [History Last Taken Unknown] polysaccharide iron complex 150 mg PO DAILYCM #30 cap 07/24/18 [Rx Last Taken Unknown] aspirin 81 mg tablet,delayed release 81 mg PO DAILY 09/30/19 [History Last Taken Unknown] ramipril 10 mg capsule 10 mg PO DAILY cap 09/30/19 [History Last Taken Unknown] risedronate 150 mg tablet 150 mg PO QMONTH tab 09/30/19 [History Last Taken Unknown] acetaminophen 650 mg tablet,extended release 650 mg PO DAILY tab 04/04/20 [History Last Taken Unknown] metoprolol succinate 25 mg tablet,extended release 24 hr 25 mg PO DAILY tab 04/04/20 [History Last Taken Unknown] tramadol 50 mg tablet 50 mg PO TID PRN tab 04/04/20 [History Last Taken Unknown] levothyroxine 112 mcg tablet 100 mcg PO DAILY tab 10/11/20 [History Last Taken Unknown] clopidogrel 75 mg tablet 75 mg PO DAILY #90 tab 10/17/20 [Rx Last Taken Unknown] Allergy/AdvReac Type Severity Reaction Status Date / Time cephalexin [From Keflex] Allergy confusion Verified 10/11/20 11:06 lidocaine Allergy Hives Verified 10/11/20 11:06 Family History Brother Myocardial infarction, Onset Age: 60 Brother Myocardial infarction, Onset Age: 65 Father Myocardial infarction, Onset Age: 60 Surgical History History of cataract surgery History of coronary artery stent placement (05/31/18) History of knee replacement History of tonsillectomy and adenoidectomy Social History Smoking Status: Never smoker Smokeless tobacco user: chewing tobacco alcohol intake: never substance use type: does not use caffeine: Yes Type: carbonated beverages Number of servings: 1 ROS ROS ED Constitutional Constitutional ED: Denies fever(s) Eyes Eyes: Denies change in vision ENT ENT ED: Denies rhinorrhea or sore throat Cardiovascular Cardiovascular: Denies chest pain or palpitations Respiratory/Chest Respiratory/Chest: Denies cough or dyspnea Gastrointestinal Gastrointestinal: Reports abdominal pain; Denies diarrhea, nausea, vomiting or other Genitourinary Genitourinary ED: Denies dysuria Musculoskeletal Musculoskeletal: Reports back pain and other Details: left knee pain ; Denies myalgias Integumentary Denies rash Neurologic Neurologic: Denies headache(s) Psychiatric Psychiatric: Denies suicidal thoughts EXAM Physical Exam Const Vital Signs: 04/30/21 11:44 Temperature 97.6 F L Temperature Source Temporal Pulse Rate 62 Respiratory Rate 14 Blood Pressure 112/79 Blood Pressure Mean 90 Pulse Ox 95 Oxygen Delivery Method Room Air Positive well nourished and well developed General Appearance ED: well developed HEENT Reports normocephalic and head/scalp atraumatic Eyes PERRL and EOMs intact bilaterally Neck supple General: Negative for tenderness Chest Wall inspection of chest normal Resp normal respiratory effort and clear to auscultation bilaterally Cardio regular rate and regular rhythm GI non-tender and non-distended Palpation: soft; Negative for guarding or rebound tenderness present no CVA tenderness Back/Spine Back/Spine Narrative: No tenderness Extremity normal to inspection Extremity Narrative: No tenderness to palpation. Active full range of motion. Neuro oriented x3 and no sensory deficits noted Sensorium / Orientation: alert Motor Exam: strength 5/5 throughout Psych mental status grossly normal Skin no rashes or lesions noted MDM MDM MDM Narrative Medical decision making narrative: Patient given morphine, Zofran IV. Left knee x-ray read by myself and radiology shows no acute process. CT abdomen pelvis shows small left inguinal hernia and umbilical hernia containing fat. Patient is resting comfortably on reevaluation. Advised to follow-up with general surgery. He will also follow-up with pain management. He has an upcoming MRI. Advised return to the ED for worsening complaints. Radiography Diagnostic Testing: Clinical Impression(s) from Imaging Studies Abdomen/Pelvis CT 04/30/21 14:27 IMPRESSION: Small left and one containing fat. Small umbilical hernia containing fat. Multiple small gallstones. Large amount of fecal material is seen in the colon. Electronically Signed: Fox Medeiros MD at 14:51 EST , Knee X-Ray 04/30/21 14:30 IMPRESSION: Normal x-ray examination of the knee after total knee arthroplasty. Electronically Signed: Luis Alberto Alberto MD at 15:09 EST , Discharge Plan Triage Chief Complaint: Back ED Provider: Nazanin Buckley Dx/Rx/DC Orders Clinical Impression: Chronic back pain, Hernia, inguinal, left Instructions: ED Back Pain (Acute or Chronic) Prescriptions: No Action acetaminophen [Tylenol 8 Hour] 650 mg tablet extended release 650 mg PO DAILY RF: 0 risedronate 150 mg tablet 150 mg PO QMONTH RF: 0 aspirin [Adult Aspirin Regimen] 81 mg tablet,delayed release (DR/EC) 81 mg PO DAILY RF: 0 ramipril 10 mg capsule 10 mg PO DAILY RF: 0 tramadol 50 mg tablet 50 mg PO TID PRNRF: 0 levothyroxine 112 mcg tablet 100 mcg PO DAILY RF: 0 pravastatin 80 MG tablet 80 mg PO DAILY RF: 0 tamsulosin 0.4 MG capsule 0.4 mg PO QHS RF: 0 gabapentin 300 MG capsule 300 mg PO TIDCM RF: 0 finasteride 5 MG tablet 5 mg PO QHS RF: 0 hydroxychloroquine 200 MG tablet 200 mg PO BIDCM RF: 0 L.acidoph, paracasei,B. lactis 1 EACH capsule 1 ea PO DAILY RF: 0 cyanocobalamin (vitamin B-12) 1,000 MCG tablet 1,000 mcg PO BID RF: 0 cholecalciferol (vitamin D3) 5,000 UNIT tablet 5,000 unit PO QHS RF: 0 nifedipine 30 MG tablet extended release 24hr 30 mg PO DAILY PRN (Reason: HTN) RF: 0 polysaccharide iron complex 150 MG capsule 150 mg PO DAILYCM Qty: 30 RF: 0 metoprolol succinate 25 mg tablet extended release 24 hr 25 mg PO DAILY RF: 0 clopidogrel [Plavix] 75 mg tablet 75 mg PO DAILY Qty: 90 RF: 3 Primary Care Provider: Ximena Haines Referrals: Alvaro Blevins DO [NON-STAFF] - Ximena Haines MD [Primary Care Provider] - Vivian Rosario MD [STAFF PHYSICIAN] - Disposition Disposition: Home, Self Care
[2021-04-30] MEDS: Ondansetron 4 MG/2 ML Vial IV (14:16)
[2021-04-30] MEDS: Morphine 2 MG/ML Syringe IV (14:16)
--- NOTE | 2021-04-30 14:27 | CT_ITS ---
STUDY: CT ABDOMEN AND PELVIS WITHOUT CONTRAST REASON FOR EXAM: Male, 85 years old. Left inguinal hernia RADIATION DOSAGE (If Supplied By Facility): CTDIvol = ( 7.21 ) mGy, DLP = ( 502.40 ) mGycm TECHNIQUE: Transaxial images were obtained from the dome of the diaphragm to the symphysis pubis without oral contrast, and without intravenous contrast. Sagittal and coronal images were reconstructed. Individualized dose optimization techniques were used for this CT. COMPARISON: None. FINDINGS: Increased reticular nodular appearance at the lung bases suggestive of a basilar scarring. Coronary artery calcification. Aortic valve replacement. Normal liver. There are multiple small gallstones. There are multiple benign calcified granulomata of the spleen. Normal pancreas. Normal bilateral adrenal glands. Normal right kidney. Normal left kidney. Normal visualized stomach. Normal small intestine. Large amount of fecal material is seen in the colon. The appendix is visualized and appears normal. There is diffuse atherosclerotic calcification of the abdominal aorta and its major visceral branches, without a demonstrated aneurysm. Normal inferior vena cava. Normal retroperitoneum. Normal urinary bladder. Calcification of the vas deferens. There is a small umbilical hernia containing fat. Small left inguinal hernia containing fat. Small bilateral benign-appearing inguinal lymph nodes. There are diffuse degenerative changes of the visualized lumbar spine. Grade 2 anterior listhesis of L5 on S1 due to spondylolysis of the pars interarticularis of the L5 vertebrae. 50% loss of height of the L2 vertebrae. Prior vertebroplasty. CT/Abdomen/Pelvis without Cont IMPRESSION: Small left and one containing fat. Small umbilical hernia containing fat. Multiple small gallstones. Large amount of fecal material is seen in the colon. Electronically Signed: Fox Medeiros MD at 14:51 EST ,
--- NOTE | 2021-04-30 14:30 | RAD_ITS ---
STUDY: X-RAY - LEFT KNEE REASON FOR EXAM: Male, 85 years old. pain TECHNIQUE: 4 view(s) of the knee. COMPARISON: 06/09/2018 FINDINGS: Normal visualized distal femur. Normal visualized proximal tibia and fibula. Normal proximal tibiofibular articulation. Status post total knee arthroplasty. The prosthesis appears located. No ostial lysis to suggest loosening.. The soft tissue structures are unremarkable. RAD/Knee 4 or More Views IMPRESSION: Normal x-ray examination of the knee after total knee arthroplasty. Electronically Signed: Luis Alberto Alberto MD at 15:09 EST ,
[2021-04-30 16:08] VITALS: BP 159/73; PULSE 57; RESP 16; O2SAT 96
--- NOTE | 2021-05-01 13:45 | CASEMGMT ---
AMANDA LAND ED follow-up: Date of ER visit: 04/30/2021 Presenting ER complaint: Back pain, fall AMANDA LAND placed call to patient's telephone number listed on demographics and patient answered. AMANDA LAND introduced self and role at [facility]. Patient states feeling about the same today. Reports taking prescribed pain medication Tramadol, Gabapentin and Tylenol as directed with some pain relief. Patient lives with who he says is very supportive and uses a walker for mobility. Patient instructed on fall safety and voices understanding. Patient has MRI scheduled next week and encouraged to keep appointment for exam. AMANDA LAND discussed possible C needs that may be addressed with PCP but patient declines need at this time, stating his is available and helpful. Patient encouraged to schedule follow-up appointments as instructed by ER provider. Voices understanding. Patient denies further questions, needs or concerns. AMANDA Mcgraw CM
== END 2021-04-30 16:09 | disposition home or self-care (01) ==
PROVIDERS: Emergency Provider Emergency Medicine; PCP Internal Medicine; Visit Provider Emergency Medicine
DX: M54.9 Dorsalgia, unspecified (principal); F17.220 Nicotine dependence, chewing tobacco, uncomplicated; G89.29 Other chronic pain; K40.90 Unilateral inguinal hernia, without obstruction or gangrene, not specified as recurrent; I25.10 Atherosclerotic heart disease of native coronary artery without angina pectoris; G47.33 Obstructive sleep apnea (adult) (pediatric); Z95.5 Presence of coronary angioplasty implant and graft
CPT/HCPCS: 73564; 74176; 96374; 96375; 99285; A4216; J2405

== ENCOUNTER 2021-05-08 15:17 | Outpatient (CLI) | payer MEDICARE, SELFPAY ==
--- NOTE | 2021-05-08 15:28 | MRI_ITS ---
STUDY: MR Spine Lumbar W/O Contrast 05/08/2021 5:27 PM REASON FOR EXAM: Male, 86 years old. Back pain INTERVERTEBRAL DISC WITHOUT MYELOPATHY TECHNIQUE: MR Spine Lumbar W/O Contrast Standardized fat and water weighted pulse sequences were obtained. COMPARISON: Dec 08 2018 11:47am FINDINGS: There is T2 hyperintensities of the left kidney. These are consistent for cysts. No follow up required. There is T2 hyperintensities of the right kidney. These are consistent for cysts. No follow up required.There is straightening of the normal lumbar lordosis. There is no substantial scoliosis. Normal conus medullaris that terminates at the L1. L1-2: Loss of intervertebral disc height. There is endplate spondylosis of the vertebral body. Left paracentral disc herniation. Narrowing of the left intervertebral neuroforamina. There is bilateral facet arthropathy. No significant spinal stenosis. L2 kyphoplasty changes. L2-3: Loss of intervertebral disc height. There is endplate spondylosis of the vertebral body. Broad-based central disc herniation. There is bilateral ligamentum flavum thickening. Impression upon anterior thecal sac. Moderate spinal stenosis. There is bilateral facet arthropathy. Left paracentral disc extrusion with severe left neural foraminal stenosis and compression of the ascending left L3 nerve root. L3-4: Loss of intervertebral disc height. There is endplate spondylosis of the vertebral body. Central disc herniation. Narrowing of the right intervertebral neuroforamina. Compression of exiting right L3 nerve root. There is bilateral facet arthropathy. Severe narrowing of the lateral recess. Severe spinal stenosis. Discogenic endplate changes. L4-5: Loss of intervertebral disc height. There is endplate spondylosis of the vertebral body. There is bilateral facet arthropathy. Bilateral neural foraminal stenosis. Compression of exiting nerve roots. L5-S1: Loss of intervertebral disc height. There is endplate spondylosis of the vertebral body. There is bilateral facet arthropathy. Bilateral neural foraminal stenosis. Compression of exiting nerve roots. There are bilateral pars articularis defects at L5-S1. There is a Grade 1 anterolisthesis of L5 on S1. Discogenic endplate changes. Normal visualized sacral ala. Normal visualized paraspinous soft tissue structures. MRI/Spine Lumbar (Routine) IMPRESSION: Multilevel degenerative changes, as described above. L1-2 and L3-4 with disc herniation. L2-3 with an extruded left disc herniation causing severe spinal stenosis. Electronically Signed: Kevin Cr MD at 17:36 EST ,
== END 2021-05-08 23:59 | disposition home or self-care (01) ==
PROVIDERS: PCP Internal Medicine; Visit Provider Internal Medicine
DX: M51.26 Other intervertebral disc displacement, lumbar region (principal)
CPT/HCPCS: 72148

== ENCOUNTER 2021-06-11 15:30 | Outpatient (CLI) | payer MEDICARE, SELFPAY ==
[2021-06-11 18:07] LABS: CRP < 2.90 mg/L (0.0-3.0); Iron 62 ug/dL (65-175)
[2021-06-13 15:08] LABS: Endomysial Antibody IgA Negative (Negative)
[2021-06-14 13:46] LABS: Immunoglobulin A 152 mg/dL (61-437); t-Transglutaminase IgA <2 U/mL (0-3)
== END 2021-06-11 23:59 | disposition home or self-care (01) ==
LOC: MTLAB 15:31
PROVIDERS: PCP Internal Medicine; Referring Provider Internal Medicine Gastroenterology; Visit Provider Internal Medicine Gastroenterology
DX: D50.9 Iron deficiency anemia, unspecified (principal)
CPT/HCPCS: 36415; 82784; 83516; 83540; 86140; 86255

== ENCOUNTER 2021-06-27 13:54 | Observation (INO) | payer MEDICARE, SELFPAY ==
--- NOTE | 2021-06-24 11:20 | RAD_ITS ---
INDICATION: preop EXAMINATION/TECHNIQUE: X-RAY - XR Chest 2 Views COMPARISON: 07/21/2018 FINDINGS: Poor inspiratory effort is seen. LINES/DEVICES: None. LUNGS: Peribronchial cuffing bilateral hilar prominence is seen, findings demonstrate no significant change in comparison to the prior study. No consolidation, edema or effusion. No pneumothorax. MEDIASTINUM AND CARDIOVASCULAR STRUCTURES: Cardiac silhouette not enlarged. Central airways and mediastinal contour are unremarkable. BONES AND SOFT TISSUES: Unremarkable. RAD/Chest PA and Lateral IMPRESSION: No radiographic evidence of acute cardiopulmonary disease. Electronically Signed: Andrade Hooker MD at 14:19 EDT ,
[2021-06-24 11:56] LABS: International Normalized Ratio 1.1; Prothrombin Time (Protime)PT. 13.5 SECONDS (11.7-14.9)
[2021-06-24 11:57] LABS: Partial Thromboplast Time 26.5 Seconds (24.1-36.2)
[2021-06-24 12:07] LABS: Hematocrit 30.1 % (40-54); Mean Corp Hgb Conc 33.2 g/dL (32-36); Mean Corpuscular Hgb 29.8 pg (27.0-32.0); Mean Corpuscular Volume 89.6 fL (80-94); Mean Platelet Vol. 10.2 fl (6.2-12.0); Platelet Count 234 K/mm3 (150-450); RBC Distribution Width CV 14.6 % (11.6-14.6); RBC Distribution Width SD 47.9 fl (35.1-43.9); Red Blood Count 3.36 M/mm3 (4.6-6.2); White Blood Count 4.7 K/mm3 (4.4-11.0)
[2021-06-24 12:26] LABS: Hemoglobin A1c 5.5 % (3.8-5.6)
[2021-06-24 12:36] LABS: Anion Gap 6 (5-15); BUN 23 mg/dL (7-18); BUN/Creat Ratio 21.3 RATIO (10-20); Calcium,Total 8.5 mg/dL (8.5-10.1); Chloride 106 mmol/L (98-107); Creatinine, Serum 1.08 mg/dL (0.70-1.30); EST Glomerular Filtration Rate 69 mL/min (>60); Est Glom Filt Rate - Afr Amer 83 mL/min (>60); Glucose 101 mg/dL (74-106); Potassium 4.2 mmol/L (3.5-5.1); Sodium Level 138 mmol/L (136-145); Thyroid Stim Hormone (TSH) 0.98 uIU/mL (0.358-3.74)
[2021-06-24 12:55] LABS: AST(SGOT) 19 U/L (15-37); Alanine Aminotransfer ALT/SGPT 17 U/L (16-61); Albumin, Serum 3.4 g/dL (3.2-5.0); Alkaline Phosphatase 42 U/L (45-117); Bilirubin, Direct 0.09 mg/dL (0.00-0.30); Globulin 3.4 g/dL (2.2-4.2); Protein, Total 6.8 g/dL (6.4-8.2)
[2021-06-27] VITALS (13 sets, daily range): BP systolic 143–215; BP diastolic 75–99; PULSE 67–90; RESP 16–18; TEMP 36.5–36.9; O2SAT 94–97; BMI 25.6
[2021-06-27] MEDS: Lactated Ringers 1,000 ML 15 ML IV ×2 (12:44→18:21)
--- NOTE | 2021-06-27 13:51 | DS.PCM_ITS ---
Providers Date of Admission: 06/27/21 Primary Care Physician: Dr. Ximena Haines MD Reason For Visit: LUMBER 2 AND 3 LAMINECTOMY DECOMPRESSION, 2-3 DISC Diagnosis Discharge Diagnosis (1) Lumbar stenosis: Status: Acute Code(s): M48.061 - Spinal stenosis, lumbar region without neurogenic claudication Medications at Discharge Home Medications finasteride 5 mg PO QHS 09/21/13 gabapentin 300 mg PO TIDCM 09/21/13 pravastatin 80 mg PO QHS 09/21/13 tamsulosin 0.4 mg PO QHS 09/21/13 L.acidoph, paracasei,B. lactis 2 ea PO DAILY 10/25/15 cholecalciferol (vitamin D3) 5,000 unit PO QHS 06/05/18 cyanocobalamin (vitamin B-12) 1,000 mcg PO DAILY 06/05/18 nifedipine 30 mg PO DAILY PRN 07/22/18 ramipril 10 mg capsule 10 mg PO DAILY PRN cap 09/30/19 risedronate 150 mg tablet 150 mg PO QMONTH tab 09/30/19 acetaminophen 650 mg tablet,extended release 325 mg PO TID tab 04/04/20 metoprolol succinate 25 mg tablet,extended release 24 hr 25 mg PO DAILY tab 04/04/20 levothyroxine 112 mcg tablet 100 mcg PO DAILY tab 10/11/20 doxycycline hyclate 100 mg PO BID 06/21/21 polysaccharide iron complex 150 mg PO BID 06/21/21 hydrocodone-acetaminophen 1 tab PO Q6H 7 Days #28 tab 06/27/21 Hospital Course Operations - (L2, L3 laminectomy, left L2-3 discectomy) Summary of Care Provided Minutes Spent on Discharge: 15 Hospital Course: The patient is an 86-year-old male who underwent L2 and L3 laminectomy with left L2-3 discectomy on 06/27/2021. He was subsequently admitted. The hospitalist was consulted for medical management. He progressed well. His pain was controlled and he was mobilizing well. No significant medical issues were reported. He was subsequently discharged home on 06/28/2021 to follow-up with Dr. Jacobs in 3 weeks Physical Exam Narrative The patient was seen and examined postoperative day 1. He is doing very well. He is lying in bed resting comfortably. His pain is well controlled. He denies any acute numbness tingling or weakness. Const alert, oriented x3 and no apparent distress General Appearance: cooperative, comfortable and well kempt HEENT normocephalic and head/scalp atraumatic Eyes EOMs intact bilaterally and conjunctivae normal Neck full ROM General: normal visual inspection Chest inspection of chest normal and palpation of chest normal Resp normal respiratory effort and normal air movement Effort and Inspection: able to speak in complete sentences Cardio regular rate and peripheral pulses 2+ throughout GI soft to palpation, non-tender and non-distended Back/Spine Back/Spine Narrative: Dressing clean dry and intact. Incision well approximated with interrupted sutures in place. No tenderness erythema drainage or fluctuance Cervical Spine: cervical ROM normal Thoracic Spine / Upper Back: normal to inspection Lumbar Spine / Lower Back: normal to inspection Extremity normal to inspection, full ROM, normal capillary refill, no clubbing, cyanosis or edema and no calf tenderness Skin no rashes or lesions noted General Skin Exam: no breakdown Neuro oriented x3, CN's II-XII intact bilaterally, moves all extremities, no focal motor deficits, no sensory deficits noted and deep tendon reflexes 2+ bilaterally Motor Exam: strength 5/5 throughout and muscle tone normal throughout Weight / BMI Weight Weight: 158 lb 11.725 oz Body Mass Index (BMI) 25.6 ABG / Lab / Microbiology Data Result Diagrams: 06/28/21 06:15 06/24/21 10:58 D/C Instructions Discharge Diet: No restrictions Discharge Activity: - (No bending twisting or lifting greater than 5 pounds) Lifting Restricted to (Lbs): 5 Call your doctor if your incision/area has: Continuous Slow Oozing, Sudden Increased Bleeding, Increased Pain/ Swelling, Increased Redness, Foul Smelling Discharge and Swelling at the incision site Call your doctor if you observe: Fever of 101 or Higher, Coldness, Increased Pain, Numbness or Tingling, Change in Color, Inability to urinate, Inability to have a bowel movement, Using more than 1 pad per hour, Shortness of breath, Dizziness, Fainting spells, Swelling in the ankles, Chest pain, Prolonged hiccupping, Increased palpitations (irregular heartbeat), Calf discomfort and Uncontrolled pain Change Dressing in: Daily Cleanse incision/area with: Do not get Incision Wet and Keep Dressing Clean & Dry Additional Dressing/Incision Instructions: Change dressing daily with iodine to incision Please Follow Up With: Renato Jacobs DO When: 3 weeks Meaningful Use Info Meaningful Use Diagnoses (Choose all that apply): None applicable Discharge Plan Admission Admit Date/Time: 06/27/21 13:54 Attending Provider: Renato Jacobs Primary Care Provider: Ximena Haines Consulting Providers: Shay Wall Additional Instructions / Restrictions: 1. During your procedure, you received sedation through your IV. Please follow these instructions for the next 24 hours: Do not drive a motor vehicle, do not drink any alcoholic beverages, and do not sign any legal documents or make personal or business decisions. A responsible adult should stay with you at least 6 hours after the procedure. 2. Keep your surgical site/incision clean and the dressing dry and intact. W aterproof dressing over incision to shower 3. Monitor the incision site for any signs or symptoms of infection. Watch for redness, excessive swelling or drainage, or continued pain at the incision site after 3 days. Contact your physician immediately for a fever, chills or a temperature of 101.5? F or greater. 4. Take your medication exactly as prescribed by your physician. Do not attempt to wean yourself off any of your medications even though your pain is improving. This process needs to be carefully monitored by your doctor. Take any antibiotics prescribed exactly as directed and until they are gone. 5. Avoid stretching, bending, pulling, twisting or any sudden movements. Do not bend or twist at the waist. 6. No lifting greater than 5 pounds. 7. Do not operate a motor vehicle, equipment or a power tool while taking pain medication 8. Do not have any manipulation done by a chiropractor or any other physician without first consulting with the surgeon 9. Please contact our office if you are even scheduled for a CT scan or an MRI. 10. Please call us if you have any questions, problems or concerns Follow-up with Dr. Jacobs in 3 weeks. Discharge Orders/Prescriptions Prescriptions: New hydrocodone-acetaminophen 5-325 mg tablet 1 tab PO Q6H 7 Days Qty: 28 RF: 0 Continued acetaminophen [Tylenol 8 Hour] 650 mg tablet extended release 325 mg PO TID RF: 0 risedronate 150 mg tablet 150 mg PO QMONTH RF: 0 ramipril 10 mg capsule 10 mg PO DAILY PRN (Reason: htn) RF: 0 levothyroxine 112 mcg tablet 100 mcg PO DAILY RF: 0 pravastatin 80 MG tablet 80 mg PO QHS RF: 0 tamsulosin 0.4 MG capsule 0.4 mg PO QHS RF: 0 gabapentin 300 MG capsule 300 mg PO TIDCM RF: 0 finasteride 5 MG tablet 5 mg PO QHS RF: 0 L.acidoph, paracasei,B. lactis 1 EACH capsule 2 ea PO DAILY RF: 0 cyanocobalamin (vitamin B-12) 1,000 MCG tablet 1,000 mcg PO DAILY RF: 0 cholecalciferol (vitamin D3) 5,000 UNIT tablet 5,000 unit PO QHS RF: 0 nifedipine 30 MG tablet extended release 24hr 30 mg PO DAILY PRN (Reason: BP systolic >160) RF: 0 polysaccharide iron complex 150 MG capsule 150 mg PO BID RF: 0 doxycycline hyclate 100 mg capsule 100 mg PO BID RF: 0 metoprolol succinate 25 mg tablet extended release 24 hr 25 mg PO DAILY RF: 0 Discontinued tramadol 50 mg tablet 100 mg PO 4X/DAY RF: 0 hydroxychloroquine 200 MG tablet 200 mg PO BIDCM RF: 0 clopidogrel [Plavix] 75 mg tablet 75 mg PO DAILY RF: 0 Referrals / Follow Up: Ximena Haines MD [Primary Care Provider] -
--- NOTE | 2021-06-27 13:51 | PCM.OPRPT ---
Problems Associated Problem List Diagnoses (1) Lumbar stenosis: (2) Lumbar disc herniation with radiculopathy: Report of Operation Date of Procedure: 06/27/21 Pre-Operative Diagnosis: 1. Lumbar stenosis, L2-3 with spondylosis 2. Lumbar degenerative disc disease L2-3 3. Left herniated disc, L2-3 Post-Operative Diagnosis: 1. Lumbar stenosis, L2-3 with spondylosis 2. Lumbar degenerative disc disease L2-3 3. Left herniated disc, L2-3 Surgery/Procedure Performed:: 1. L2 bilateral laminectomies, foraminotomies, decompression of bilateral nerve roots 2. L3 bilateral laminectomies, foraminotomies, decompression of bilateral nerve roots Description of Surgical Findings:: The patient is an 86-year-old male with intractable back and leg pain. Image studies confirm the above diagnoses. He has failed conservative treatments to include medication, physical therapy and injections. The patient opted for operative intervention understanding the risk to include but not limited to infection, bleeding, damage to nerves arteries and veins, possibility of spinal fluid leak, continued pain, need for further surgery, deep vein thrombosis, pulmonary embolism, heart attack, risk of stroke or . The patient was identified in the preoperative holding area. There he received preoperative IV antibiotics, clindamycin, and was then transferred to the operative suite. Once in the operative suite after general endotracheal anesthesia was established the patient was transferred to the [place] operating table in the prone position. All bony prominences were padded accordingly. The lumbar spine was prepped and draped in a standard surgical fashion. Bear hugger's were not turned on until the drapes were placed and sealed with Ioban. A midline incision was made and taken to the level of the lumbodorsal fascia. The fascia was divided and subperiosteal dissection was taken to the level of the bilateral L2-3 facet joints. Deep retractors were placed. A bone scalpel was used to make cuts in the lamina of L2 and L3 and then a series of rongeurs and Kerrisons was used to remove the spinous process and lamina at L2 and L3. Bilateral foraminotomies were also performed at this time decompressing the bilateral nerve roots. The nerve roots and dura were identified and retracted medially, but no disc herniation could be identified. The incision was then thoroughly irrigated. Tisseel was placed over the dura as a hemostatic agent. The fascia was closed with #1 Vicryl, subcutaneous with 2-0 Vicryl and skin with 2-0 nylon. A sterile dressing was applied with 4 x 4's ABD and tape. Sponge instrument needle counts were correct at the end of the case. The patient was extubated and taken to the PACU without incident. Alka Farias PA-C was present during the entire duration of the case and necessary for critical parts of the case including retraction and closure. Surgeon: Renato Jacobs writer technical publications: Alka Farias Type of Anesthesia: General Estimated Blood Loss (mL): 20 Fluids Replaced: 1600 Complications None Admit VTE Documentation VTE Present on Admission: No
--- NOTE | 2021-06-27 13:51 | PCM.PN.ORT ---
Subjective Subjective The patient was seen and examined postoperatively in the PACU. He is lying in bed resting comfortably. He is having some postop soreness in the lower back. He denies any other complaints including acute numbness tingling or weakness. Objective Data Objective Data Vital Signs: Vital Signs Temp Pulse Resp BP Pulse Ox 98.4 F 67 16 159/75 H 97 06/27/21 12:39 06/27/21 12:39 06/27/21 12:39 06/27/21 12:39 06/27/21 12:39 Oxygen Delivery Method Room Air Weight: 158 lb 11.725 oz Body Mass Index (BMI) 25.6 Lab / Micro Data Result Diagrams: 06/24/21 10:58 06/24/21 10:58 Physical Exam Const alert, oriented x3 and no apparent distress General Appearance: cooperative and comfortable HEENT normocephalic and head/scalp atraumatic Eyes EOMs intact bilaterally and conjunctivae normal Neck full ROM General: normal visual inspection Chest inspection of chest normal and palpation of chest normal Resp normal respiratory effort and normal air movement Cardio regular rate and peripheral pulses 2+ throughout GI soft to palpation, non-tender and non-distended Back/Spine Back/Spine Narrative: Dressing clean dry and intact Cervical Spine: cervical ROM normal Thoracic Spine / Upper Back: normal to inspection Lumbar Spine / Lower Back: normal to inspection Extremity normal to inspection, full ROM, normal capillary refill, no clubbing, cyanosis or edema and no calf tenderness Skin no rashes or lesions noted General Skin Exam: no breakdown Neuro oriented x3, CN's II-XII intact bilaterally, moves all extremities, no focal motor deficits, no sensory deficits noted and deep tendon reflexes 2+ bilaterally Motor Exam: strength 5/5 throughout and muscle tone normal throughout Assessment & Plan Assessment/Plan (1) Lumbar stenosis: PLAN: Okay to admit to floor See orders Pain control and mobilization Discharge planning, likely home tomorrow
[2021-06-27] MEDS: Bupivacaine 0.25% 30 ML Vial (14:49)
--- NOTE | 2021-06-27 14:50 | RAD_ITS ---
EXAM: XR SPINE, 1 VIEW CLINICAL INDICATION: L2-3 LAMINECTOMY / DISCECTOMY TECHNIQUE: Single view of the spine. This report was created using [employer] report generation technology. COMPARISON: None. FINDINGS: Lateral fluoroscopic view of the lumbosacral junction obtained for localization purposes. There is lack of bony detail precludes evaluation of the spine. RAD/Spine 1 View Any Level IMPRESSION: As above. Electronically Signed: Shorty Bruner MD at 9:56 EDT ,
[2021-06-27] MEDS: Cefazolin 2 GM in 0.9% Normal Saline 100 ML IV (14:54)
[2021-06-27] MEDS: THROMBIN (RECOMBINANT) 20,000 UNIT VIAL 20000 UNIT TOPICAL (15:25)
--- NOTE | 2021-06-27 17:58 | PN.HOSP_ITS ---
Documented by User: Lamar Grissom NP, NETWORK ANALYST-C 06/27/21 18:04 Subjective Subjective Patient seen and examined in PACU. Underwent lumbar surgery secondary to lumbar stenosis. Hospitalist services consulted for medical management. Objective Data Objective Data Vital Signs: Vital Signs Temp Pulse Resp BP Pulse Ox 97.9 F 70 16 213/94 H 96 06/27/21 17:15 06/27/21 17:50 06/27/21 17:50 06/27/21 17:50 06/27/21 17:50 Oxygen Delivery Method Room Air Weight: 158 lb 11.725 oz Body Mass Index (BMI) 25.6 Intake & Output: Intake and Output for Last 24 Hours 06/25/21 06/26/21 06/27/21 23:59 23:59 23:59 Intake Total 110 / 110 Output Total 750 / 750 Balance -640 / -640 Lab / Micro Data Result Diagrams: 06/24/21 10:58 06/24/21 10:58 Physical Exam Const alert, oriented x3 and no apparent distress Orientation / Consciousness: awake, oriented to person, oriented to place and oriented to time HEENT normocephalic and moist oral mucous membranes Eyes PERRL, EOMs intact bilaterally and conjunctivae normal Neck no lymphadenopathy Resp normal respiratory effort and clear to auscultation bilaterally Cardio regular rate, regular rhythm and no murmurs Peripheral Pulses: pulses 2+ throughout GI normal to inspection, nondistended, normoactive bowel sounds, non-tender and non-distended Extremity normal to inspection Skin no rashes or lesions noted Lesions: no lesions Rashes: no rashes Trauma: no lacerations or abrasions Neuro CN's II-XII intact bilaterally, no focal motor deficits, no sensory deficits noted and deep tendon reflexes 2+ bilaterally Psych mental status grossly normal and affect normal Assessment & Plan Assessment/Plan (1) Lumbar stenosis: PLAN: 1. Lumbar stenosis L2-L3 with spondylosis and lumbar degenerative disc disease with left herniated disc [id number] post lumbar surgical intervention, see report. Management per surgery. PT/OT. As needed pain randal men. 2. Hypertensive urgency-blood pressure greater than 200 systolically in PACU. PRN IV hydralazine. Resume home BP meds. 3. Hyperlipidemia-continue statin. 4. CAD-continue statin, beta-kelly, ramipril. 5. History of CVA-continue statin, not on aspirin. 6. 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 7. BPH-continue finasteride, Flomax. 8. Inflammatory arthritis-on hydroxychloroquine. 9. Hypothyroidism-continue Synthroid. 10. History of basal cell carcinoma DVT prophylaxis- SCDs This patient was seen by ALBA Leung under the supervision of Dr. Wall. Time spent examining patient, reviewing data and subsequent management of care: 13 minutes Documented by User: Dr. Shay Wall DO 06/27/21 19:48 Objective Data Lab / Micro Data Result Diagrams: 06/24/21 10:58 06/24/21 10:58 Charges/Coding Addendum Addendum: Patient was seen and examined independently of Lamar Grissom, patient was seen at the request of orthopedic surgery for medical management, patient underwent L2 bilateral laminectomies, foraminotomies, decompression of bilateral nerve roots. and L3 bilateral laminectomies, foraminotomies, and decompression of bilateral nerve roots today. Patient's medical history includes coronary artery disease, lumbar spinal stenosis, essential hypertension, and hyperlipidemia. On examination he appeared in good health and spirits. Vital signs as documented. Skin warm and dry and without overt rashes. Neck without JVD, neck was supple, trachea midline, thyroid was normal. Lungs clear bilaterally, normal air movement was noted. Heart exam notable for regular rhythm, normal sounds and absence of murmurs, rubs or gallops. Abdomen unremarkable and without evidence of organomegaly, masses, or abdominal aortic enlargement. Bowel sounds are present, abdomen is not distended. Extremities nonedematous, no cyanosis was noted, no clubbing was noted. Neuro: Cranial nerves II through XII are grossly intact, no focal motor deficits were noted, sensation to light touch and pinprick intact, motor exam 5/5 throughout. Psych: Patient is alert and oriented x3, he does not appear anxious or depressed, he does not appear agitated. Patient appears medically stable at this time in PACU, patient will be continued on his home medications. Impression: #1 coronary artery disease-stable at this time, patient will remain on his current meds #2 essential hypertension-patient will remain on his current medications #3 hyperlipidemia-patient will remain on his statin #4 hypothyroidism-patient will remain on Synthroid #5 lumbar spinal stenosis-status post surgery postop day 0 as noted above- patient will be seen by PT and OT, orthopedic surgery is managing his care #6 iron deficiency anemia-patient is on oral ferrous sulfate, labs will be monitored as needed Patient has hydroxychloroquine listed as a home medication, I can find no evidence of rheumatoid arthritis in any of the patient's medical records here, I have elected to stop this medication, I let Dr. Jacobs know about this. I have reviewed Lamar Grissom's progress note including her medical assessment and plan of care and with the above additions endorse it. Total clinical time spent by myself addressing the patient's medical issues, reviewing the patient's medical record, and collaborating with the patient's care team: 25-minutes Visit Charges Inpatient E&M: [id number] Subs Hosp L3
--- NOTE | 2021-06-27 20:47 | NURSING ---
Pt reports no numbness or tingling to hands feet or legs. Pt states he can feel me touch his feet and legs. Patient able to move toes and feet. No c/o pain.
[2021-06-27] MEDS: Gabapentin 300 MG Capsule PO (22:50)
[2021-06-27] MEDS: Clindamycin 900 MG/50 ML BAG 75 MG IV (22:50)
[2021-06-27] MEDS: Acetaminophen 500 MG Tablet 1000 MG PO (22:52)
[2021-06-27] MEDS: Cholecalciferol (Vit D3) 125 MCG CAPSULE (5,000 UNITS) PO (22:52)
[2021-06-27] MEDS: Doxycycline 100 MG CAPSULE PO (22:53)
[2021-06-27] MEDS: Pravastatin 80 MG Tablet PO (22:53)
[2021-06-27] MEDS: Finasteride 5 MG Tablet PO (22:53)
[2021-06-27] MEDS: Tamsulosin HCl 0.4 MG Capsule PO (22:53)
[2021-06-28 01:44] VITALS: BP 119/60; PULSE 73; RESP 18; TEMP 36.8; O2SAT 96
--- NOTE | 2021-06-28 01:45 | NURSING ---
Pt sat and bedside and stood up for first time since back to floor from surgery. This nurse was assisted by DEBONE PROCESSING SUPERVISOR. Pt stated no pain at this time. Pt reports no dizziness.
[2021-06-28] MEDS: Lactated Ringers 1,000 ML 100 ML IV (01:47)
[2021-06-28 05:40] VITALS: BP 131/62; PULSE 68; RESP 16; TEMP 36.6; O2SAT 98
[2021-06-28] MEDS: Clindamycin 900 MG/50 ML BAG 75 MG IV (05:41)
[2021-06-28] MEDS: Levothyroxine 100 MCG Tablet PO (05:47)
[2021-06-28] MEDS: Acetaminophen 500 MG Tablet 1000 MG PO (05:47)
[2021-06-28 06:29] LABS: Hematocrit 29.7 % (40-54); Hemoglobin 9.7 g/dL (13.0-16.5)
--- NOTE | 2021-06-28 07:03 | PCM.PN.HOSP ---
Subjective Subjective The patient has history of lower back pain with radiation to gluteal region and legs, sciatic in quality. Feels sciatica pain better. His back pain coming back because of wearing of anesthesia effect Objective Data Objective Data Vital Signs: Vital Signs Temp Pulse Resp BP Pulse Ox 98 F 68 16 131/62 H 98 06/28/21 05:40 06/28/21 05:40 06/28/21 05:40 06/28/21 05:40 06/28/21 05:40 Oxygen Delivery Method Room Air Weight: 158 lb 11.725 oz Body Mass Index (BMI) 25.6 Intake & Output: Intake and Output for Last 24 Hours 06/26/21 06/27/21 06/28/21 23:59 23:59 23:59 Intake Total 1160 / 1160 101.67 / 101.67 Output Total 1400 / 3100 1950 / 1950 Balance -240 / -1940 -1848.33 / -1848.33 Lab / Micro Data Result Diagrams: 06/28/21 06:15 06/24/21 10:58 Labs: Laboratory Results - last 24 hr 06/28/21 06:15: Hgb 9.7 L, Hct 29.7 L Assessment & Plan Assessment/Plan (1) Lumbar stenosis: PLAN: 1. Lumbar stenosis L2-L3 with spondylosis and lumbar degenerative disc disease with left herniated disc [id number] post lumbar surgical intervention, see report. Management per surgery. PT/OT. As needed pain regimen. 2. Hypertensive urgency-blood pressure greater than 200 systolically in PACU. PRN IV hydralazine. Resume home BP meds. 3. Hyperlipidemia-continue statin. 4. CAD-continue statin, beta-kelly, ramipril. 5. History of CVA-continue statin, not on aspirin. 6. 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 7. BPH-continue finasteride, Flomax. 8. Inflammatory arthritis-on hydroxychloroquine. 9. Hypothyroidism-continue Synthroid. 10. History of basal cell carcinoma DVT prophylaxis- SCDs
[2021-06-28 08:33] VITALS: PULSE 80
[2021-06-28] MEDS: Metoprolol(XL)Succ 25 MG Tablet PO (08:33)
[2021-06-28] MEDS: Gabapentin 300 MG Capsule PO (08:33)
[2021-06-28] MEDS: Doxycycline 100 MG CAPSULE PO (08:33)
[2021-06-28] MEDS: Cyanocobalamin 500 MCG Tablet 1000 MCG PO (08:33)
[2021-06-28] MEDS: Ramipril 10 MG Capsule PO (08:34)
[2021-06-28] MEDS: oxyCODONE 5 MG Tablet PO (08:38)
[2021-06-28 09:23] VITALS: BP 105/56; PULSE 80; RESP 16; TEMP 36.4; O2SAT 97
--- NOTE | 2021-06-28 09:54 | CASEMGMT ---
AMANDA LAND Assessment: Face to Face with pt for initial transition planning/care coordination assessment. AMANDA LAND introduced self and role at [facility], pt voices understanding and consents to assessment. Pt is A/O x4 and answers all questions appropriately at this time. Pt present during assessment and patient wishes for to answer assessment questions. Care providers, pharmacy, and demographics verified/updated. Admitting Dx: lumbar 2 and 3 laminectomy decompression, 2-3 disc PCP:Zaki Specialists:Arlene, spine OR; Tracee, ID; Gen, pain mgmt; Julien, cardio [facility] [place] Prescription Benefit: yes LW/HPOA: Pt has a DPOA on file at [facility]. His DPOA is his , Alisha Au. LNOK: Alisha Au, Living Arrangements: Pt lives with in a single story house with 2-3 steps to enter with a rail. Pt reports being I in ADL's and denies concerns at home. Pt uses [facility] at baseline. Transportation: Pt drives self and denies concerns with transportation. to transport until pt able. DME/HHC/SNF: Pt has a [facility], power scooter, 2 canes and w/c at home. Pt has had [facility] HHC in the past and denies SNF stays. Pt states no concerns with going home at time of dc. Pt states no further concerns/needs. CM to follow. Advised pt to ask CM if any further question/concerns/needs arise, voices understanding. Pt Goal: Home Plan: Home
--- NOTE | 2021-06-28 10:52 | PN.HOSP_ITS ---
Documented by User: Lamar Grissom NP, BREWERY PUMPER-C 06/28/21 10:56 Subjective Subjective Patient seen and examined. States postoperative pain is better than the pain he was having prior to surgery. Patient states his blood pressure does fluctuate significantly at home. BP now appears stable. Patient denies other symptoms or complaints. Objective Data Objective Data Vital Signs: Vital Signs Temp Pulse Resp BP Pulse Ox 97.5 F L 80 16 105/56 L 97 06/28/21 09:23 06/28/21 09:23 06/28/21 09:23 06/28/21 09:23 06/28/21 09:23 Oxygen Delivery Method Room Air Weight: 158 lb 11.725 oz Body Mass Index (BMI) 25.6 Intake & Output: Intake and Output for Last 24 Hours 06/26/21 06/27/21 06/28/21 23:59 23:59 23:59 Intake Total 1160 / 1160 475.17 / 475.17 Output Total 1400 / 3100 2150 / 2150 Balance -240 / -1940 -1674.83 / -1674.83 Lab / Micro Data Result Diagrams: 06/28/21 06:15 06/24/21 10:58 Labs: Laboratory Results - last 24 hr 06/28/21 06:15: Hgb 9.7 L, Hct 29.7 L Radiography Diagnostic Testing: Radiology Impression Spine X-Ray 06/27/21 14:50 IMPRESSION: As above. Electronically Signed: Shorty Bruner MD at 9:56 EDT , Physical Exam Const alert, oriented x3 and no apparent distress Orientation / Consciousness: awake, oriented to person, oriented to place and oriented to time HEENT normocephalic and moist oral mucous membranes Eyes PERRL, EOMs intact bilaterally and conjunctivae normal Neck no lymphadenopathy Resp normal respiratory effort and clear to auscultation bilaterally Cardio regular rate, regular rhythm and no murmurs Peripheral Pulses: pulses 2+ throughout GI normal to inspection, nondistended, normoactive bowel sounds, non-tender and non -distended Extremity normal to inspection Skin no rashes or lesions noted Skin Narrative: Postop dressing intact. Lesions: no lesions Rashes: no rashes Trauma: no lacerations or abrasions Neuro CN's II-XII intact bilaterally, no focal motor deficits, no sensory deficits noted and deep tendon reflexes 2+ bilaterally Psych mental status grossly normal and affect normal Assessment & Plan Assessment/Plan (1) Lumbar disc herniation with radiculopathy: (2) Lumbar stenosis: PLAN: 1. Lumbar stenosis L2-L3 with spondylosis and lumbar degenerative disc disease with left herniated disc [id number] post lumbar surgical intervention, see report. Management per surgery. PT/OT. As needed pain regim en. 2. Hypertensive urgency-blood pressure greater than 200 systolically in PACU. Blood pressure now stable. Continue home medication regimen with as needed IV hydralazine. 3. Hyperlipidemia-continue statin. 4. CAD-continue statin, beta-kelly, ramipril. 5. History of CVA-continue statin, not on aspirin. 6. 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 7. BPH-continue finasteride, Flomax. 8. Inflammatory arthritis-on hydroxychloroquine. 9. Hypothyroidism-continue Synthroid. 10. History of basal cell carcinoma DVT prophylaxis- SCDs This patient was seen by ALBA Leung under the supervision of Dr. De Dios. Time spent examining patient, reviewing data and subsequent management of care: 10 minutes Documented by User: Dr. Pool De Dios MD 06/28/21 11:13 Subjective Subjective Patient postoperative pain was better. He has a Amaro catheter. He did not come with Amaro catheter but was put in in the OR The patient has history of lower back pain with radiation to gluteal region and legs, sciatic in quality. Feels sciatica pain better. His back pain coming back because of wearing of anesthesia effect Objective Data Lab / Micro Data Result Diagrams: 06/28/21 06:15 06/24/21 10:58 Physical Exam Narrative General: Alert, Oriented x3, Cooperative HEENT: Atraumatic, PERRLA, EOMI, Normocephalic Oral: No Gingival or Mucosal Lesions/ Ulcerations Neck: Supple, No JVD, Negative Carotid Bruits Lungs: Air entry diminished in bilateral lung bases. No crepitation/rhonchi Cardiovascular: Regular rate, Regular Rhythm, Normal S1, Normal S2, holosystolic murmur over LLSB Abdomen: Bowel Sounds Present, Soft, Non Tender, Non-Distended : Clear urine in the Amaro catheter. No renal angle tenderness. No guzman prapubic tenderness. Extremities: No edema, Capillary Refill Less than 3 Seconds Skin: No rashes, No breakdown Musculoskeletal/spine: Surgical dressing is dry. No soakage. No drain. Muscle strength at knee and ankle 5/5 bilaterally. Patient and position sense Neurological: Cranial nerves II-XII grossly intact, DTR 2+/4 and Symmetrical Psych/Mental Status: Normal Affect, Appropriate Assessment & Plan Assessment/Plan (1) Lumbar disc herniation with radiculopathy: PLAN: This patient was seen in conjunction with Lamar PAZ. I have independently interviewed and examined the patient and reviewed pertinent history, examination findings, laboratory and plan of management. I have reviewed the note and agree with the documented findings with the few additional points. In brief, patient is admitted by orthopedic surgeon for elective L2 and L3 bilateral laminectomy, foraminotomies, decompression of bilateral nerve roots for lumbar stenosis L2-L3 with left lumbar herniated and degenerative disc disease. Surgical dressing is dry with no soakage. Patient will be discharged by orthopedic surgeon. DC Amaro catheter Patient has mild pain is controlled. Patient had hypertensive urgency with systolic blood pressure more than 200 in PACU. The most recent 105/56. Other comorbidities as mentioned above. I have discussed my assessment with Lamar PAZ and orders have been reviewed. Charges/Coding Visit Charges Inpatient E&M: 73004 Subs Hosp L2
--- NOTE | 2021-06-28 11:07 | NURSING ---
dressing change supplies given to pt and .
--- NOTE | 2021-06-28 11:24 | PHA.DC.MC ---
Pharmacy Service has performed discharge medication reconciliation and counseling for this patient. 1. NORCO 5/325MG 1T PO Q6H PRN PAIN The patient's discharge medication list was reviewed for discrepancies and discrepancies were resolved. Patient advised to avoid other sources of Tylenol if Perkins is needed. Patient reports having tramadol at home and advised to only use tramadol or Perkins but not both concurrently. Home Medications finasteride 5 mg PO QHS 09/21/13 gabapentin 300 mg PO TIDCM 09/21/13 pravastatin 80 mg PO QHS 09/21/13 tamsulosin 0.4 mg PO QHS 09/21/13 L.acidoph, paracasei,B. lactis 2 ea PO DAILY 10/25/15 cholecalciferol (vitamin D3) 5,000 unit PO QHS 06/05/18 cyanocobalamin (vitamin B-12) 1,000 mcg PO DAILY 06/05/18 nifedipine 30 mg PO DAILY PRN 07/22/18 ramipril 10 mg capsule 10 mg PO DAILY PRN cap 09/30/19 risedronate 150 mg tablet 150 mg PO QMONTH tab 09/30/19 acetaminophen 650 mg tablet,extended release 325 mg PO TID tab 04/04/20 metoprolol succinate 25 mg tablet,extended release 24 hr 25 mg PO DAILY tab 04/04/20 levothyroxine 112 mcg tablet 100 mcg PO DAILY tab 10/11/20 doxycycline hyclate 100 mg PO BID 06/21/21 polysaccharide iron complex 150 mg PO BID 06/21/21 hydrocodone-acetaminophen 1 tab PO Q6H 7 Days #28 tab 06/27/21 The patient was counseled on the following discharge medications and changes in medications for homegoing were reviewed. The Reason for Use, instructions for use, and potential side effects were reviewed for all new medications. The patient's questions regarding all of their medications were answered. The patient was able to verbally demonstrate an understanding of their discharge medications.
== END 2021-06-28 11:45 | disposition home or self-care (01) | DRG 520 ==
LOC: MS3 18:02
PROVIDERS: Anesthesiology; Internal Medicine; Admitting Provider Orthopaedic Surgery; PCP Internal Medicine; Referring Provider Orthopaedic Surgery; Visit Provider Orthopaedic Surgery
PROC: (CPT 63030; principal; 2021-06-27 13:00)
DX: M48.061 Spinal stenosis, lumbar region without neurogenic claudication (principal); M06.4 Inflammatory polyarthropathy; D50.9 Iron deficiency anemia, unspecified; M51.16 Intervertebral disc disorders with radiculopathy, lumbar region; M47.26 Other spondylosis with radiculopathy, lumbar region; I25.10 Atherosclerotic heart disease of native coronary artery without angina pectoris; E78.5 Hyperlipidemia, unspecified; I10 Essential (primary) hypertension; G47.33 Obstructive sleep apnea (adult) (pediatric); I16.0 Hypertensive urgency; E03.9 Hypothyroidism, unspecified; N40.0 Benign prostatic hyperplasia without lower urinary tract symptoms; I35.0 Nonrheumatic aortic (valve) stenosis; Z86.73 Personal history of transient ischemic attack (TIA), and cerebral infarction without residual deficits; Z85.828 Personal history of other malignant neoplasm of skin; K90.0 Celiac disease; M81.0 Age-related osteoporosis without current pathological fracture; Z79.899 Other long term (current) drug therapy; Z79.02 Long term (current) use of antithrombotics/antiplatelets; Z79.890 Hormone replacement therapy
CPT/HCPCS: 63047; 63048; 00630; 36415; 71046; 72020; 76000; 80048; 80076; 83036; 84443; 85014; 85018; 85027; 85610; 85730; 96361; 96365; 96366; 97161; 99221; 99251; 99252; 99406; J7120; G0378; G0463; J2405

== ENCOUNTER 2021-07-30 11:41 | Emergency (ER) | payer MEDICARE, SELFPAY ==
[2021-07-30 11:42] VITALS: BP 131/70; PULSE 60; RESP 14; TEMP 36.8; O2SAT 94; BMI 25.8
--- NOTE | 2021-07-30 11:59 | CT_ITS ---
STUDY: CT ABDOMEN AND PELVIS WITHOUT CONTRAST REASON FOR EXAM: Male, 86 years old. Abdominal pain RADIATION DOSAGE (If Supplied By Facility): CTDIvol = ( 8.24 ) mGy, DLP = ( 389.09 ) mGycm TECHNIQUE: Transaxial images were obtained from the dome of the diaphragm to the symphysis pubis without oral contrast, and without intravenous contrast. Sagittal and coronal images were reconstructed. Individualized dose optimization techniques were used for this CT. COMPARISON: 04/30/2021 FINDINGS: The visualized lung bases are unremarkable. The visualized portions of the heart are within normal limits. Normal liver. There are multiple gallstones. Normal spleen. Normal pancreas. Normal bilateral adrenal glands. Normal right kidney. Normal left kidney. Normal visualized stomach. No dilated loops of small bowel. Scattered fecal residue throughout the colon without colonic wall thickening. There is non-visualization of the appendix. There is diffuse atherosclerotic calcification of the abdominal aorta, without a demonstrated aneurysm. Normal inferior vena cava. Normal retroperitoneum. Normal urinary bladder. There is enlargement of the prostate gland. Periumbilical fat-containing hernia stable. Left inguinal hernia has increased in size, now containing a portion of descending colon. A right predominantly fat-containing hernia has also increased in size with portion of bowel extending to the hernia mouth (image 133 series 2). Degenerative and operative changes of the lumbar spine new since the prior study with nonspecific edema of the posterior soft tissues. Grade 1 spondylolisthesis L5-S1 with bilateral L5 spondylolysis stable. Vertebral augmentation of L2 noted. CT/Abdomen/Pelvis without Cont IMPRESSION: 1. No hydronephrosis or urinary tract calcifications. 2. Left larger than right inguinal hernias with the left side now containing a portion of descending colon (and small bowel extending to right inguinal hernia mouth). No bowel obstruction. 3. Moderate fecal retention of the colon. Electronically Signed: Wilber Mireles MD ([facility]) at 13:01 EDT ,
--- NOTE | 2021-07-30 12:05 | EDS_ITS ---
HPI History of Present Illness Chief Complaint: Back Informant: patient Narrative Narrative: 86-year-old male presenting to the emergency room with right flank pain. Patient states that he chronically has back pain. This morning while attempting to get out of bed he developed a pain in his right flank. He states that it was intense and that the tramadol and Tylenol that he takes routinely has helped. He denies any fever or rash. He states that he had a back surgery approximately 1 month ago. He states that this is a new pain. Denies any urinary or bowel changes. No abdominal pain. No radicular pain. [facility], [facility] Medical History Anemia Arthritis Atherosclerotic heart disease of [place] coronary artery without angina pectoris Bacteremia due to Staphylococcus BPH (benign prostatic hyperplasia) Cardiology follow-up encounter Carotid bruit Celiac disease Chewing tobacco nicotine dependence DDD (degenerative disc disease) Easy bruising Erectile dysfunction Essential (primary) hypertension Excessive bleeding Hearing loss Hemorrhagic cerebrovascular accident (CVA) (10/2015) History of intracranial hemorrhage History of stress test Hx of Clostridium difficile infection Hyperlipidemia Hypothyroidism Infection of prosthetic left knee joint Inflammatory arthropathy Low iron Neoplasm of skin Non-rheumatic aortic stenosis Obesity Obstructive sleep apnea Osteoporosis Renal artery stenosis S/P transesophageal echocardiogram ([place]) Sciatic nerve injury Smokeless tobacco use Thyroid disease Walker as ambulation aid Wears dentures Home Medications finasteride 5 mg PO QHS 09/21/13 [History Last Taken 06/05/18] gabapentin 300 mg PO TIDCM 09/21/13 [History Last Taken 06/06/18] pravastatin 80 mg PO QHS 09/21/13 [History Last Taken 06/06/18] tamsulosin 0.4 mg PO QHS 09/21/13 [History Last Taken 06/05/18] L.acidoph, paracasei,B. lactis 2 ea PO DAILY 10/25/15 [History Last Taken 06/06/18] cholecalciferol (vitamin D3) 5,000 unit PO QHS 06/05/18 [History Last Taken 06/05/18] cyanocobalamin (vitamin B-12) 1,000 mcg PO DAILY 06/05/18 [History Last Taken 06/06/18] nifedipine 30 mg PO DAILY PRN 07/22/18 [History Last Taken Unknown] ramipril 10 mg capsule 10 mg PO DAILY cap 09/30/19 [History Last Taken 06/27/21 07:00] risedronate 150 mg tablet 150 mg PO QMONTH tab 09/30/19 [History Last Taken Unknown] acetaminophen 650 mg tablet,extended release 325 mg PO TID tab 04/04/20 [History Last Taken Unknown] metoprolol succinate 25 mg tablet,extended release 24 hr 25 mg PO DAILY tab 04/04/20 [History Last Taken 06/27/21 07:00] levothyroxine 112 mcg tablet 100 mcg PO DAILY tab 10/11/20 [History Last Taken 06/27/21 07:00] doxycycline hyclate 100 mg PO BID 06/21/21 [History Last Taken Unknown] polysaccharide iron complex 150 mg PO BID 06/21/21 [History Last Taken Unknown] clopidogrel 75 mg PO DAILY 07/30/21 [History Last Taken Unknown] hydroxychloroquine 200 mg PO BID 07/30/21 [History Last Taken Unknown] tramadol 50 mg PO Q4H PRN 07/30/21 [History Last Taken Unknown] Allergy/AdvReac Type Severity Reaction Status Date / Time lidocaine Allergy Hives Verified 07/30/21 11:42 cephalexin [From Keflex] AdvReac confusion Verified 07/30/21 11:42 Family History Brother Myocardial infarction, Onset Age: 60 Brother Myocardial infarction, Onset Age: 65 Father Myocardial infarction, Onset Age: 60 Surgical History History of cataract surgery History of coronary artery stent placement (05/31/18) History of knee replacement History of tonsillectomy and adenoidectomy Social History Smoking Status: Never smoker Smokeless tobacco user: chewing tobacco alcohol intake: never substance use type: does not use caffeine: Yes Type: carbonated beverages Number of servings: 1 ROS ROS ED Constitutional Constitutional ED: Denies chills or weight loss Eyes Eyes: Denies change in vision or diplopia ENT ENT ED: Denies ear pain, rhinorrhea or sore throat Cardiovascular Cardiovascular: Denies chest pain, orthopnea, palpitations or racing heartbeat Respiratory/Chest Respiratory/Chest: Denies cough, dyspnea or orthopnea Gastrointestinal Gastrointestinal: Denies abdominal pain, diarrhea, nausea or vomiting Genitourinary Genitourinary ED: Denies dysuria, hematuria or urinary frequency Musculoskeletal Musculoskeletal: Reports back pain; Denies arthralgias or myalgias Integumentary Denies abscess or rash Neurologic Neurologic: Denies headache(s) or weakness Psychiatric Psychiatric: Denies anxiety, depression, suicidal ideation or suicidal thoughts Endocrine Endocrinology: Denies polydipsia, polyphagia or polyuria Allergic/Immunologic Allergic/Immunologic ED: Denies mouth swelling, tongue swelling or urticaria EXAM Physical Exam Const Vital Signs: 07/30/21 11:42 07/30/21 13:28 Temperature 98.2 F Temperature Source Temporal Pulse Rate 60 58 L Respiratory Rate 14 18 Blood Pressure 131/70 H 156/78 H Blood Pressure Mean 90 Pulse Ox 94 98 Oxygen Delivery Method Room Air Positive well nourished and well developed General Appearance ED: well developed HEENT Reports normocephalic, head/scalp atraumatic, TM's clear and moist mucous membranes Negative for trauma Tympanic Membrane ED: Yes TM's clear Eyes PERRL and EOMs intact bilaterally Neck no lymphadenopathy, supple and no JVD Resp normal respiratory effort and clear to auscultation bilaterally Cardio regular rate and regular rhythm Rate: other Other Details: Systolic murmur GI normal to inspection, nondistended, normoactive bowel sounds and non-tender Palpation: soft Back/Spine no CVA tenderness and normal ROM Back/Spine Narrative: There is a healing midline incision. I do not see any evidence of infection. Patient notes some mild tenderness to palpation in the right CVA area. Extremity normal to inspection General Extremety ED: Negative for edema General Extremity: Negative for edema Neuro oriented x3 and CN's II-XII intact bilaterally Sensorium / Orientation: alert Motor Exam: strength 5/5 throughout Psych mental status grossly normal Mood & Affect: Negative for depressed or tearful Skin no rashes or lesions noted and no wounds MDM MDM MDM Narrative Medical decision making narrative: White count 6.3 with a hemoglobin of 10. CMP is normal. Urinalysis is normal. CT of the abdomen pelvis demonstrates bilateral inguinal hernias left greater than right. No kidney stones noted. Patient is going to be discharged home. I do not have a clear etiology for the patient's pain by do not see anything emergent at this time.. He has pain medicine at home. Return if worsening or concerns Lab Data Attestation: I reviewed the patient's lab results. Labs: Laboratory Results - last 24 hr 07/30/21 07/30/21 07/30/21 12:10 12:10 12:28 WBC 6.3 RBC 3.37 L Hgb 10.0 L Hct 30.6 L MCV 90.8 MCH 29.7 MCHC 32.7 RDW Std Deviation 44.9 H RDW Coeff of Juanis 13.5 Plt Count 248 MPV 10.1 Immature Gran % (Auto) 0.300 Neut % (Auto) 74.4 H Lymph % (Auto) 14.0 L Edmonson % (Auto) 9.4 Eos % (Auto) 1.3 Baso % (Auto) 0.6 Absolute Neuts (auto) 4.7 Absolute Lymphs (auto) 0.88 Nucleated RBC % 0 Sodium 137 Potassium 4.3 Chloride 104 Carbon Dioxide 26.0 Anion Gap 7 BUN 20 H Creatinine 1.01 Estim Creat Clear Calc 47.38 Est GFR (MDRD) Af Amer 90 Est GFR (MDRD) Non-Af 74 BUN/Creatinine Ratio 19.8 Glucose 104 Calcium 9.3 Total Bilirubin 0.30 AST 15 ALT 14 L Alkaline Phosphatase 61 Total Protein 7.1 Albumin 3.4 Globulin 3.7 Albumin/Globulin Ratio 0.9 Urine Color Yellow Urine Clarity Clear Urine pH 6.5 Ur Specific [place] 1.015 Urine Protein 15 H Urine Glucose (UA) Normal Urine Ketones Negative Urine Occult Blood Negative Urine Nitrite Negative Urine Bilirubin Negative Urine Urobilinogen Normal Ur Leukocyte Esterase 25 H Urine RBC 0 SEEN Urine WBC 0-5 SEEN Ur Squamous Epith Cells 0 SEEN Urine Bacteria 0 SEEN Urine Mucus 0 SEEN Radiography Diagnostic Testing: Clinical Impression(s) from Imaging Studies Abdomen/Pelvis CT 07/30/21 11:59 IMPRESSION: 1. No hydronephrosis or urinary tract calcifications. 2. Left larger than right inguinal hernias with the left side now containing a portion of descending colon (and small bowel extending to right inguinal hernia mouth). No bowel obstruction. 3. Moderate fecal retention of the colon. Electronically Signed: Wilber Mireles MD ([place]) at 13:01 EDT Reading Location ID and State: / [place] , Service support , Discharge Plan Triage Chief Complaint: Back ED Provider: Homer Stoner Dx/Rx/DC Orders Clinical Impression: Back pain, Inguinal hernia Instructions: ED Hernia (Adult), ED Pain, Acute, Uncertain Cause Prescriptions: No Action acetaminophen [Tylenol 8 Hour] 650 mg tablet extended release 325 mg PO TID RF: 0 risedronate 150 mg tablet 150 mg PO QMONTH RF: 0 ramipril 10 mg capsule 10 mg PO DAILY RF: 0 levothyroxine 112 mcg tablet 100 mcg PO DAILY RF: 0 pravastatin 80 MG tablet 80 mg PO QHS RF: 0 tamsulosin 0.4 MG capsule 0.4 mg PO QHS RF: 0 gabapentin 300 MG capsule 300 mg PO TIDCM RF: 0 finasteride 5 MG tablet 5 mg PO QHS RF: 0 L.acidoph, paracasei,B. lactis 1 EACH capsule 2 ea PO DAILY RF: 0 cyanocobalamin (vitamin B-12) 1,000 MCG tablet 1,000 mcg PO DAILY RF: 0 cholecalciferol (vitamin D3) 5,000 UNIT tablet 5,000 unit PO QHS RF: 0 nifedipine 30 MG tablet extended release 24hr 30 mg PO DAILY PRN (Reason: BP systolic >160) RF: 0 polysaccharide iron complex 150 MG capsule 150 mg PO BID RF: 0 doxycycline hyclate 100 mg capsule 100 mg PO BID RF: 0 clopidogrel 75 mg Tablet 75 mg PO DAILY RF: 0 tramadol 50 mg Tablet 50 mg PO Q4H PRN (Reason: Pain) RF: 0 hydroxychloroquine 200 mg Tablet 200 mg PO BID RF: 0 metoprolol succinate 25 mg tablet extended release 24 hr 25 mg PO DAILY RF: 0 Primary Care Provider: Ximena Haines Referrals: Ximena Haines MD [Primary Care Provider] - As Needed Disposition Disposition: Home, Self Care Discharge Date/Time: 07/30/21 13:29
[2021-07-30 12:18] LABS: Absolute Lymphocyte Count 0.88 X10^3/uL (0.83-4.51); Absolute Neutrophil Count 4.7 X10^3/uL (2.0-7.7); Basophil# 0.04 X10^3/uL; Basophil% 0.6 % (0-1); Eosinophil# 0.08 X10^3/uL; Eosinophils% 1.3 % (0-5); Hematocrit 30.6 % (40-54); Lymphocyte # 0.88 X10^3/ul (0.83-4.51); Mean Corp Hgb Conc 32.7 g/dL (32-36); Mean Corpuscular Hgb 29.7 pg (27.0-32.0); Mean Corpuscular Volume 90.8 fL (80-94); Mean Platelet Vol. 10.1 fl (6.2-12.0); Monocyte# 0.59 X10^3/uL; Monocyte% 9.4 % (0-10); NRBC Flagged by Analyzer 0 % (0-5); Neutrophil # 4.66 X10^3/uL (2.7-7.7); Neutrophil % 74.4 % (47-70); Platelet Count 248 K/mm3 (150-450); RBC Distribution Width CV 13.5 % (11.6-14.6); RBC Distribution Width SD 44.9 fl (35.1-43.9); Red Blood Count 3.37 M/mm3 (4.6-6.2); White Blood Count 6.3 K/mm3 (4.4-11.0)
[2021-07-30 12:31] LABS: Bacteria 0 SEEN /hpf (None Seen); Mucous, Urine 0 SEEN /hpf (<or=2+); Red Blood Cells-Urine 0 SEEN /hpf (0-5); Squamous Epithelial Cells - UA 0 SEEN /hpf (0-5)
[2021-07-30 12:32] LABS: Color, Urine Yellow (Yellow); Glucose, Dipstick Normal (Normal); Ketone-Dipstick Negative (Negative); Leukocyte Esterase-Dipstick 25 /ul (Negative); Nitrite-Dipstick Negative (Negative); Occult Blood-Urine Negative /ul (Negative); Protein-Dipstick 15 mg/dl (Negative); Specific Gravity, Urine 1.015 (1.002-1.030); Urine Bilirubin Dipstick Negative (Negative); Urine Clarity Clear (Clear); Urine Urobilinogen Normal (Normal); Urine pH 6.5 (5.0 - 8.0)
[2021-07-30 12:34] LABS: ALB/GLOB Ratio 0.9 RATIO (0.9-2.4); AST(SGOT) 15 U/L (15-37); Alanine Aminotransfer ALT/SGPT 14 U/L (16-61); Albumin, Serum 3.4 g/dL (3.2-5.0); Alkaline Phosphatase 61 U/L (45-117); Anion Gap 7 (5-15); BUN 20 mg/dL (7-18); BUN/Creat Ratio 19.8 RATIO (10-20); Calcium,Total 9.3 mg/dL (8.5-10.1); Chloride 104 mmol/L (98-107); Creatinine, Serum 1.01 mg/dL (0.70-1.30); EST Glomerular Filtration Rate 74 mL/min (>60); Est Glom Filt Rate - Afr Amer 90 mL/min (>60); Estimated Creatinine Clearance 47.38 ml/min; Globulin 3.7 g/dL (2.2-4.2); Glucose 104 mg/dL (74-106); Potassium 4.3 mmol/L (3.5-5.1); Protein, Total 7.1 g/dL (6.4-8.2); Sodium Level 137 mmol/L (136-145)
[2021-07-30 12:37] LABS: White Blood Cells 0-5 SEEN /hpf (0-5)
[2021-07-30 13:28] VITALS: BP 156/78; PULSE 58; RESP 18; O2SAT 98
== END 2021-07-30 13:29 | disposition home or self-care (01) ==
PROVIDERS: Emergency Provider Emergency Medicine; PCP Internal Medicine; Visit Provider Emergency Medicine
DX: M54.9 Dorsalgia, unspecified (principal); I25.10 Atherosclerotic heart disease of native coronary artery without angina pectoris; F17.220 Nicotine dependence, chewing tobacco, uncomplicated; E78.5 Hyperlipidemia, unspecified; I10 Essential (primary) hypertension; K40.20 Bilateral inguinal hernia, without obstruction or gangrene, not specified as recurrent; M19.90 Unspecified osteoarthritis, unspecified site; N40.0 Benign prostatic hyperplasia without lower urinary tract symptoms; Z79.899 Other long term (current) drug therapy; Z79.02 Long term (current) use of antithrombotics/antiplatelets; G47.33 Obstructive sleep apnea (adult) (pediatric); E03.9 Hypothyroidism, unspecified; Z79.890 Hormone replacement therapy
CPT/HCPCS: 74176; 80053; 81001; 85025; 99283

== ENCOUNTER → 2021-09-05 | Outpatient (CLI) | payer MEDICARE, SELFPAY ==
[2021-09-05 11:05] LABS: Absolute Neutrophil Count 4.2 X10^3/uL (2.0-7.7); Basophil# 0.03 X10^3/uL; Basophil% 0.5 % (0-1); Eosinophil# 0.08 X10^3/uL; Eosinophils% 1.3 % (0-5); Hematocrit 32.7 % (40-54); Hemoglobin 10.5 g/dL (13.0-16.5); Lymphocyte % 19.5 % (19-41); Mean Corp Hgb Conc 32.1 g/dL (32-36); Mean Corpuscular Hgb 28.6 pg (27.0-32.0); Mean Corpuscular Volume 89.1 fL (80-94); Mean Platelet Vol. 10.5 fl (6.2-12.0); Monocyte# 0.57 X10^3/uL; Monocyte% 9.3 % (0-10); NRBC Flagged by Analyzer 0 % (0-5); Neutrophil # 4.24 X10^3/uL (2.7-7.7); Neutrophil % 69.1 % (47-70); Platelet Count 250 K/mm3 (150-450); RBC Distribution Width CV 13.8 % (11.6-14.6); RBC Distribution Width SD 44.7 fl (35.1-43.9); Red Blood Count 3.67 M/mm3 (4.6-6.2); White Blood Count 6.1 K/mm3 (4.4-11.0)
[2021-09-05 11:33] LABS: Anion Gap 8 (5-15); BUN 21 mg/dL (7-18); BUN/Creat Ratio 17.4 RATIO (10-20); Calcium,Total 9.3 mg/dL (8.5-10.1); Chloride 105 mmol/L (98-107); Creatinine, Serum 1.21 mg/dL (0.70-1.30); EST Glomerular Filtration Rate 60 mL/min (>60); Est Glom Filt Rate - Afr Amer 73 mL/min (>60); Ferritin 80 ng/mL (26-388); Glucose 97 mg/dL (74-106); Iron 49 ug/dL (65-175); Potassium 4.3 mmol/L (3.5-5.1); Sodium Level 138 mmol/L (136-145)
[2021-09-05 14:31] LABS: AST(SGOT) 18 U/L (15-37); Alanine Aminotransfer ALT/SGPT 14 U/L (16-61); Albumin, Serum 3.6 g/dL (3.2-5.0); Alkaline Phosphatase 56 U/L (45-117); Bilirubin, Direct 0.09 mg/dL (0.00-0.30); Globulin 3.7 g/dL (2.2-4.2); Protein, Total 7.3 g/dL (6.4-8.2)
== END | disposition home or self-care (01) ==
LOC: LAB 10:39
PROVIDERS: Anesthesiology; PCP Internal Medicine; Referring Provider Internal Medicine; Visit Provider Surgery
DX: Z01.818 Encounter for other preprocedural examination (principal); D50.9 Iron deficiency anemia, unspecified; I10 Essential (primary) hypertension
CPT/HCPCS: 36415; 80048; 80076; 82728; 83540; 84443; 85025

== ENCOUNTER 2021-09-10 15:50 | Observation (INO) | payer MEDICARE, SELFPAY ==
--- NOTE | 2021-09-05 10:27 | EKG12_ITS ---
Test Reason : PREOP Blood Pressure : / mmHG Vent. Rate : 071 BPM Atrial Rate : 071 BPM P-R Int : 184 ms QRS Dur : 090 ms QT Int : 410 ms P-R-T Axes : 000 037 050 degrees QTc Int : 445 ms Normal sinus rhythm Normal ECG Confirmed by PATRICIA DUNN, JUNE ([id number]), society editor RODOLFO CRANE ([id number]) on 09/10/2021 9:37:40 AM Referred By: Gomez Orozco Confirmed By:GABRIEL GOMEZ MD
[2021-09-10] VITALS (22 sets, daily range): BP systolic 125–213; BP diastolic 58–117; PULSE 59–81; RESP 12–18; TEMP 36.4–37.4; O2SAT 92–99; BMI 26.0
--- NOTE | 2021-09-10 06:40 | PCM.HP.BLA ---
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 lactis 2 ea PO DAILY 10/25/15 [History Confirmed 08/19/21] cholecalciferol (vitamin D3) 5,000 unit PO QHS 06/05/18 [History Confirmed 08/19/21] cyanocobalamin (vitamin B-12) 1,000 mcg PO DAILY 06/05/18 [History Confirmed 08/19/21] nifedipine 30 mg PO DAILY PRN 07/22/18 [History Confirmed 08/19/21] ramipril 10 mg capsule 10 mg PO DAILY? cap 09/30/19 [History Confirmed 08/19/21] risedronate 150 mg tablet 150 mg PO QMONTH? tab 09/30/19 [History Confirmed 08/19/21] acetaminophen 650 mg tablet,extended release 325 mg PO TID? tab 04/04/20 [History Confirmed 08/19/21] metoprolol succinate 25 mg tablet,extended release 24 hr 25 mg PO DAILY? tab 04/04/20 [History Confirmed 08/19/21] doxycycline hyclate 100 mg PO BID 06/21/21 [History Confirmed 08/19/21] polysaccharide iron complex 150 mg PO BID 06/21/21 [History Confirmed 08/19/21] clopidogrel 75 mg PO DAILY 07/30/21 [History Confirmed 08/19/21] hydroxychloroquine 200 mg PO BID 07/30/21 [History Confirmed 08/19/21] tramadol 50 mg PO Q4H PRN 07/30/21 [History Confirmed 08/19/21] levothyroxine 100 mcg tablet 100 mcg PO DAILY? tab 08/15/21 [History Confirmed 08/19/21] pantoprazole 40 mg tablet,delayed release 40 mg PO DAILY 08/19/21 [History Confirmed 08/19/21] PFSH Medical History?(Updated 08/19/21 @ 16:[address] Gomez Orozco MD) Anemia Arthritis Atherosclerotic heart disease of [place] coronary artery without angina pectoris Bacteremia due to Staphylococcus BPH (benign prostatic hyperplasia) Cardiology follow-up encounter Carotid bruit Celiac disease Chewing tobacco nicotine dependence DDD (degenerative disc disease) Easy bruising Erectile dysfunction Essential (primary) hypertension Excessive bleeding Hearing loss Hemorrhagic cerebrovascular accident (CVA) (10/2015) History of intracranial hemorrhage History of stress test Hx of Clostridium difficile infection Hyperlipidemia Hypothyroidism Infection of prosthetic left knee joint Inflammatory arthropathy Left carotid artery stenosis Low iron Neoplasm of skin Non-rheumatic aortic stenosis Obesity Obstructive sleep apnea Osteoporosis Renal artery stenosis S/P transesophageal echocardiogram ([facility]) Sciatic nerve injury Smokeless tobacco use Thyroid disease Walker as ambulation aid Wears dentures Surgical History?(Updated 08/19/21 @ 15:13 by Gaby Duggan) History of back surgery History of cataract surgery History of coronary artery stent placement (05/31/18) History of knee replacement History of tonsillectomy and adenoidectomy Family History?(Updated 08/19/21 @ 15:14 by Gaby Duggan) Brother Myocardial infarction,? Onset Age: 60Brother Myocardial infarction,? Onset Age: 65Father Myocardial infarction,? Onset Age: 60Brother CVA (cerebral vascular accident)Son CVA (cerebral vascular accident) Social History? Smoking Status:? Never smoker Smokeless tobacco user:? chewing tobacco alcohol intake:? never substance use type:? does not use caffeine:? Yes Type: carbonated beverages Number of servings: 1 HPI HPI HPI: DELROY TIPTON, is a 86 M who presents to the office today for surgical consultation regarding bilateral groin pain and leg weakness.? Complicating his presentation is sciatica.? The patient is referred by Dr. Ximena Haines and a written compromise surgical consult and recommendations will return to her.? The patient has a history of chronic anemia.? As of July 30, 2021 white count was 6.3 with a hemoglobin of 10 hematocrit of 30.6 and a platelet count of 248,000.? BUN was 20 and creatinine 1.01.? Liver function tests were normal. Recent imaging May 08, 2021 included a MRI of the spine showing L1-2 and L3-4 disc herniation.? There is L2-3 extruded left disc herniation causing severe spinal stenosis. It is of additional note that on July 30, [address] abdomen pelvis without contrast showing a left larger than right inguinal hernia.? There was descending colon involved on the hernia in the left and small bowel partially involved on the right.? There was no obstruction.? Fecal retention was noted. Although the patient is age 86 he still mows yard.? He is on his Kubota 70 inch the 0 degree and turn mower for least 3 hours at a time.? He says he has multiple acres to treat.? He has had no previous surgery on his abdomen.? He notes that there is been progressive swelling of the left and its intermittently uncomfortable.? He notes less swelling on the right.? He is aware that he has had an umbilical hernia for a period of time as well. On June 27, 2021 Dr. Jacobs performed back surgery on him.? The patient states that this has improved his back pain. He has [address].? He states that he was taken off of his clopidogrel for 1 week preoperatively and 1 week postoperatively for his back surgery.? 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 Victoria. July 30, 2021 STUDY:? CT ABDOMEN AND PELVIS WITHOUT CONTRAST REASON FOR EXAM: ? Male, 86 years old.? Abdominal pain RADIATION DOSAGE (If Supplied By Facility):? CTDIvol = ( 8.24 ) mGy, DLP = ( 389.09 ) mGycm TECHNIQUE: ? Transaxial images were obtained from the dome of the diaphragm to the symphysis pubis without oral contrast, and without intravenous contrast.? Sagittal and coronal images were reconstructed. Individualized dose optimization techniques were used for this CT. COMPARISON: ? 04/30/2021 FINDINGS: The visualized lung bases are unremarkable.? The visualized portions of the heart are within normal limits. Normal liver.? There are multiple gallstones.? Normal spleen.? Normal pancreas. Normal bilateral adrenal glands. Normal right kidney.? Normal left kidney. Normal visualized stomach.? No dilated loops of small bowel.? Scattered fecal residue throughout the colon without colonic wall thickening.? There is non-visualization of the appendix. There is diffuse atherosclerotic calcification of the abdominal aorta, without a demonstrated aneurysm.? Normal inferior vena cava.? Normal retroperitoneum. Normal urinary bladder.? There is enlargement of the prostate gland. Periumbilical fat-containing hernia stable.? Left inguinal hernia has increased in size, now containing a portion of descending colon.? A right predominantly fat-containing hernia has also increased in size with portion of bowel extending to the hernia mouth (image 133 series 2).? Degenerative and operative changes of the lumbar spine new since the prior study with nonspecific edema of the posterior soft tissues.? Grade 1 spondylolisthesis L5-S1 with bilateral L5 spondylolysis stable.? Vertebral augmentation of L2 noted. CT/Abdomen/Pelvis without Cont IMPRESSION: 1.? No hydronephrosis or urinary tract calcifications. 2.? Left larger than right inguinal hernias with the left side now containing a portion of descending colon (and small bowel extending to right inguinal hernia mouth).? No bowel obstruction. 3.? Moderate fecal retention of the colon. ? Electronically Signed: Wilber Mireles MD (Brooks) at 13:01 EDT Reading Location ID and State: [address] [place] [address] , Service support? , ROS General General: No weight change, appetite, fatigue, colon cancer, breast cancer or weakness HEENT HEENT: No difficulty swallowing, eye injury, eye surgery, swollen glands or hoarseness Endo Endocrine: No thyroid disease, diabetes mellitus, thyroid cancer, Hair loss, heat intolerance or cold intolerance Skin Skin: Yes rash; No changing moles Breast Breast: No left breast lump, right breast lump, nipple discharge, breast pain, abnormal mammogram, abnormal US or breast enlargement Musc Musculoskeletal: Yes back problems and arthritis; No rheumatoid arthritis, gout or joint pain Cardio Cardiovascular: Yes murmur, high blood pressure and heart stent; No pacemaker, heart disease, atrial fibrillation, heart attack, palpitations, shortness of breat with exertion or chest pain Psych Psychiatric: No depression, anxiety or hearing voices Resp Respiratory: No shortness of breath, No sleep apnea, No cough, No COPD, No asthma, No emphysema and No wheezing Gastro Gastrointestinal: No abdominal pain, No nausea or vomiting, No diarrhea, No constipation, No blood in stool, No acid reflux, No hemorrhoids, No ulcers, No gallbladder problem and No black,tarry stools Michael Hematologic: Yes blood thinners, No blood disorders, No bleeding, Yes anemia and No blood clots Neuro Neurologic: No system reviewed and no additional complaints, except as documented, No as per HPI, No abnormal gait, No abnormal hearing, No abnormal movements, No abnormal speech, No behavioral changes, No burning sensations, No confusion, No convulsions, No disequilibrium, No dizziness, No localized weakness, No frequent falls, No headache(s), No lack of coordination, No loss of vision, No memory loss, Yes numbness, No other visual disturbances, No radicular pain, No restless legs, No sensory deficit, No syncope, Yes tingling, No tremor(s), No weakness and No other (History of hemorrhagic stroke) Exam Const General: cooperative, comfortable and no acute distress Nutritional Appearance: average body habitus Orientation: alert, awake and oriented x3 HENMT Head: normal to inspection Eyes General: appearance normal, both eyes and all related structures Neck Other: Kyphosis noted Chest Other: Slightly increased AP diameter Resp Effort & Inspection: normal respiratory effort Auscultation: clear to auscultation bilaterally Cardio Rate: regular rate Rhythm: regular rhythm Other: 3/6 systolic ejection murmur GI Other: Soft, fixed umbilical hernia nonreducible with fibrofatty tissue, no hepatosplenomegaly, normal bowel sounds Other: Testicles are descended atrophic.? Smaller and easily reducible medial right inguinal hernia.? Quite sizable and much more difficult to reduce left inguinal hernia. Musc Other: Cervical kyphosis Skin General: no rashes or lesions noted Neuro General: patient alert and patient awake Extrem General: no calf tenderness Psych Appearance: grossly normal Assessment and Plan Assessment and Plan (1) Hernia: (2) Bilateral inguinal hernia: ?Status:?Acute ?Qualifiers: ?Obstruction and gangrene presence:?without obstruction or gangrene??Recurrence:?non-recurrent? Qualified Code(s):?K40.20 - Bilateral inguinal hernia, without obstruction or gangrene, not specified as recurrent (3) Umbilical hernia without obstruction or gangrene: ?Status:?Acute ?Plan - Dr. Gomez Orozco MD: 86-year-old gentleman otherwise enjoying a good quality of life.? He has successfully been recovering from back surgery.? He has a quite symptomatic left inguinal hernia with a significant amount of large bowel involvement.? He has a right inguinal hernia with small bowel involvement.? He has an umbilical hernia. I propose for him a laparoscopic bilateral inguinal herniorrhaphy with mesh.? I would anticipate an umbilical herniorrhaphy with Ventralex at that time as well.? This will require general anesthetic.? He is aware of the technique, benefit, risk, alternatives. He is aware that this will be a technically more challenging procedure. We will have him hold his clopidogrel 5 days preoperatively and then depending upon the procedure may be able to resume it 2 days postoperatively. We will anticipate scheduling and proceed as noted. Copy: Dr. João Victoria and Dr. Ximena Haines I appreciate the opportunity of assisting with the surgical care Gomez Orozco M.D., F.A.C.S. I have re-examined the patient. There are no clinical changes since date of exam.
[2021-09-10] MEDS: Lactated Ringers 1,000 ML 15 ML IV ×2 (06:45→15:07)
[2021-09-10 07:10] LABS: International Normalized Ratio 1.1; Prothrombin Time (Protime)PT. 13.9 SECONDS (11.7-14.9)
[2021-09-10 07:11] LABS: Partial Thromboplast Time 29.2 Seconds (24.1-36.2)
--- NOTE | 2021-09-10 07:12 | EX.PCM.DISCH ---
Discharge Instructions Procedure Gallbladder Diet Discharge Diet: Light diet - advance as tolerated Activity Discharge Activity: May Not Drive (for one week or while taking narcotic pain medications.) and - (Do not drive, work heavy equipment or sign legal documents for 24 hours.) May shower in (days): 1 (with the bandage in place.) Additional Activity Instructions:: Pain medication may cause nausea. You should typically eat light foods as you take your pain medications. Pain medication may also cause constipation. If this is a problem for you, please discuss with your doctor. Dressing / Incision Call your doctor if your incision/area has: Continuous Slow Oozing, Sudden Increased Bleeding, Increased Pain/ Swelling, Increased Redness and Foul Smelling Discharge Call your doctor if you observe: Fever of 101 or Higher Suture Line Care: Avoid Pulling/Pushing and Avoid Pinching/Bending Additional Dressing/Incision Instructions:: Leave operative bandaids on for 2 days. When you remove dressing, leave Steri-Strips on until your follow-up appointment, or until the Steri-Strips fall off on their own. Follow Up Care Please Follow Up With: Gomez Orozco MD When: Call [phone] to schedule an appointment to be seen 12-14 days after your surgery. Test Results: . Discharge Plan Admission Admit Date/Time: 09/10/21 15:50 Primary Reason for Your Visit: Bilateral inguinal hernias, umbilical hernia Attending Provider: Gomez Orozco Primary Care Provider: Ximena Haines Discharge Orders/Prescriptions Prescriptions: New polyethylene glycol 3350 [Miralax] 17 gram/dose powder 17 g PO DAILY Qty: 119 0RF hydrocodone-acetaminophen 5-325 mg tablet 1 tab PO Q8H PRN (Reason: pain) 2 Days Qty: 6 0RF Continued acetaminophen [Tylenol 8 Hour] 650 mg tablet extended release 325 mg PO TID risedronate [Actonel] 150 mg tablet 150 mg PO QMONTH ramipril 10 mg capsule 10 mg PO DAILY Label Comments: TAKE 1 CAPSULE BY MOUTH IN THE MORNING levothyroxine 100 mcg tablet 100 mcg PO DAILY pantoprazole [Protonix] 40 mg tablet,delayed release (DR/EC) 40 mg PO DAILY pravastatin 80 MG tablet 80 mg PO QHS Label Comments: CHOLESTEROL LOWERING tamsulosin 0.4 MG capsule 0.4 mg PO QHS Label Comments: PROSTATE gabapentin 300 MG capsule 300 mg PO BID Label Comments: NERVE PAIN finasteride [Proscar] 5 MG tablet 5 mg PO DAILY LErikacidliberty yatesB. lactis 1 EACH capsule 2 ea PO BID cyanocobalamin (vitamin B-12) 1,000 MCG tablet 1,000 mcg PO DAILY cholecalciferol (vitamin D3) 5,000 UNIT tablet 5,000 unit PO QHS nifedipine [Procardia XL] 30 MG tablet extended release 24hr 30 mg PO DAILY PRN (Reason: BP systolic >160) polysaccharide iron complex 150 MG capsule 150 mg PO BID doxycycline hyclate 100 mg capsule 100 mg PO BID Label Comments: TAKE 1 CAPSULE BY MOUTH TWICE DAILY tramadol 50 mg Tablet 50 mg PO Q4H PRN (Reason: Pain) hydroxychloroquine [Plaquenil] 200 mg Tablet 200 mg PO BID metoprolol succinate 25 mg tablet extended release 24 hr 25 mg PO DAILY Held clopidogrel [Plavix] 75 mg Tablet 75 mg PO DAILY Hold Instructions: Resume on 09/15/21. Other Ambulatory Orders: 12 Lead EKG (Routine) Timeframe: [id number] Location: None Selected Ordered By: Dr. Gomez Orozco Referrals / Follow Up: Ximena Haines MD [Primary Care Provider] -
--- NOTE | 2021-09-10 07:30 | HERN_PTH ---
PATIENT: DELROY TIPTON LOC: MS3 U#:[id number] AGE/SX: 86/M ROOM: [facility] [place]10[place]: Dr. Gomez Orozco MD : 1935 BED: 1 DIS: 09/11/2021 SPEC #: [id number] RECD: 09/10/21 12:35 STATUS: CINTHIA URVASHI #: [id number] NICOLASA: 09/10/21 07:[address]: Gomez Orozco DEPT: SURGICAL PATHOLOGY RECD BY: Sammy [place] ENTERED: 09/10/21 13:49 SP TYPE: Hernia OTHR DR: Dr. Ximena Haines MD Tissues: HERNIA Procedures: Surgery Specimen Level II HEADER OPERATION: Laparoscopic, bilateral inguinal hernia repair with mesh PRE-OP DIAGNOSIS: Left larger than right inguinal hernia TISSUE SUBMITTED: Umbilical hernia sac and contents MICROSCOPIC DIAGNOSIS Umbilical hernia sac and contents: A piece of fibroadipose tissue, clinically hernia sac and contents. UNRULY:alma 09/11/2021 MICROSCOPIC DESCRIPTION Slides are reviewed. GROSS DESCRIPTION Received in fixative is one container labeled with the patient's name and designated hernia sac and contents. The specimen consists of an irregular fragment of yellow fatty tissue measuring 3.7 x 3.2 x 1.6 cm. Serial sections reveal yellow cut surfaces without areas of cyst formation, necrosis or hemorrhage. Conservation Biology Professor sections are submitted in two cassettes. / AM:alma 09/10/2021 TC:5 CPT: 77753
[2021-09-10] MEDS: Clindamycin 900 MG/50 ML BAG 75 MG IV (07:49)
[2021-09-10] MEDS: 0.9% Normal Saline 1,000 ML 15 ML IV (08:45)
[2021-09-10] MEDS: Bupivacaine Mpf 0.5% 30 ML VIAL (09:25)
--- NOTE | 2021-09-10 09:25 | OP.PCM_ITS ---
Problems Associated Problem List Diagnoses (1) Bilateral inguinal hernia: (2) Umbilical hernia without obstruction or gangrene: Report of Operation Date of Procedure: 09/10/21 Pre-Operative Diagnosis: Symptomatic bilateral indirect inguinal hernias and incarcerated umbilical hernia Post-Operative Diagnosis: Same Surgery/Procedure Performed:: Laparoscopic bilateral inguinal herniorrhaphy with Bard 3D max extra-large mesh bilaterally. Umbilical herniorrhaphy with [address] mesh Ventralex ST hernia patch: Reference: [id number]. Lot number [id number], April 05, 2023 Bard 3D max right extra-large mesh: Reference [id number]. Lot number [id number]. Expiry date 11/03/2025 Bard 3D max left extra-large mesh: Reference #[id number], lot number [id number], expiry date 03/05/2026 Description of Surgical Findings:: Timeout informed consent was obtained. 86-year-old gentleman was taken to the operating placed supine on the table underwent general endotracheal intubation esthesia. Clindamycin 900 g were given intravenously. The abdomen sterilely prepped and draped. 0.5% Marcaine was used as local anesthetic. A curvilinear incision was made the inferior portion of the umbilicus sharp and blunt dissection was used to identify the incarcerated umbilical hernia contents I dissected this free of the umbilical skin down to the fascia and then use electrocautery to transect the sac and contents. Cath was then inserted there is no evidence of any access injury under direct visitation 5 mm ports were placed in the right and left lower quadrant. Bilateral ilioinguinal nerve blocks were performed with the Marcaine under laparoscopic visualization. The peritoneum superior and lateral to the internal ring on the right was addressed first the peritoneum was incised then the peritoneum was completely dissected free this was extraordinarily tedious due to the size of the hernia and chronicity of the problem peritoneum was dissected free inferior medially and laterally. I then addressed the left groin in a similar fashion. This was the larger of the 2 hernias and the sac was white large. There was also a left cord lipoma that I had to dissect free and retracted. Having performed this with sharp and blunt dissection using Hem-o-leo clips for hemostasis was able to get both groins nicely dissected free. Extra-large Bard 3D max mesh was initially placed on the left in place was to cover the defect area direct indirect and femoral areas and was secured laterally superiorly with secure strap. I then placed the mesh from the right this mesh was somewhat more difficult to position but with care was able to get it to cover all 3 defects I then secured it laterally superiorly and medially with secure strap. I felt that I had good positioning on both sides with the hernial defects very well covered. I then used combination of secure strap and hemoclips to approximate the peritoneum back to itself both sides completely obliterating access to the mesh. This appeared to go smoothly with some extra work again on the right due to a small peritoneal rent that needed to be closed. That was done however with no tension. The abdomen was allowed to deflate of the CO2. The umbilical hernia was closed by using a [address] mesh. The tails were secured with interrupted 0 Nurolon. The fascial defect measured approximately [address] The defect was then closed transversely with simple sutures of 0 Nurolon. Subdermal tissues were approximated with interrupted 4-0 Monocryl subdermal sutures. Steri-Strips applied. Telfa and OpSite dressings at the port sites. Cottonball and larger OpSite at the umbilical site. Sponge and instrument and needle counts were reported to the surgeon be correct. Blood loss was minimal. He tolerated the procedure well and he was taken to the recovery area in satisfactory addition Dr. Diya Cummings. Specimen: Umbilical hernia sac and contents. Drains none. Blood loss minimal. Gomez Orozco M.D., F.A.C.S. Surgeon: Gomez Orozco Type of Anesthesia: General and Local Anesthesiologist: Kathy Jimenez
[2021-09-10] MEDS: traMADol 50 MG Tablet PO ×2 (12:18→17:50)
[2021-09-10] MEDS: Finasteride 5 MG Tablet PO (17:50)
[2021-09-10] MEDS: Polyethylene Glycol 3350 17 GM PACKET PO (17:50)
[2021-09-10] MEDS: Gabapentin 300 MG Capsule PO (17:50)
[2021-09-10] MEDS: NIFEdipine 30 MG Tablet PO (20:39)
[2021-09-10] MEDS: Acetaminophen 325 MG Tablet PO (21:41)
[2021-09-10] MEDS: Tamsulosin HCl 0.4 MG Capsule PO (21:41)
[2021-09-10] MEDS: Pravastatin 80 MG Tablet PO (21:41)
[2021-09-10] MEDS: Doxycycline 100 MG CAPSULE PO (21:41)
[2021-09-10] MEDS: Ramipril 10 MG Capsule PO (21:50)
[2021-09-10] MEDS: LORazepam 2 MG/ML Syringe 1 MG IV (22:05)
[2021-09-10] MEDS: 0.9% Saline Lock 10 ML Syringe IV (22:05)
[2021-09-11 00:30] VITALS: BP 184/80
[2021-09-11 01:17] VITALS: BP 182/80; PULSE 75; RESP 12; TEMP 37.2; O2SAT 98
[2021-09-11 01:55] VITALS: BP 180/82
--- NOTE | 2021-09-11 02:59 | NURSING ---
Late entry; pt. out of bed with two assist. Pt. needed lots of cueing and instruction to ambulate.
[2021-09-11 03:02] VITALS: BP 168/72
[2021-09-11 04:21] VITALS: BP 158/76; PULSE 78; RESP 16; TEMP 37.1; O2SAT 97
[2021-09-11] MEDS: Levothyroxine 100 MCG Tablet PO (05:26)
[2021-09-11] MEDS: Acetaminophen 325 MG Tablet PO (05:26)
--- NOTE | 2021-09-11 06:10 | PCM.PN.SRG ---
Subjective Subjective Patient complaining of phlegm. Complaining about need to cough. Soreness in the groins. Objective Data Objective Data Vital Signs: Vital Signs Temp Pulse Resp BP Pulse Ox O2 Del Method 98.7 F 78 16 158/76 H 97 Room Air 09/11/21 04:21 09/11/21 04:21 09/11/21 04:21 09/11/21 04:21 09/11/21 04:21 09/11/21 04:21 Oxygen Delivery Method Room Air Weight: 156 lb 8.451 oz Body Mass Index (BMI) 26.0 Intake & Output: Intake and Output for Last 24 Hours 09/09/21 09/10/21 09/11/21 23:59 23:59 23:59 Intake Total 2551 / 2551 200 / 200 Output Total 2049 / 2049 1550 / 1550 Balance 501 / 501 -1350 / -1350 Lab / Micro Data Labs: Laboratory Results - last 24 hr 09/10/21 06:15: PT Cancelled, INR Cancelled, APTT Cancelled 09/10/21 06:50: PT 13.9, INR 1.1, APTT 29.2 Physical Exam Const oriented x3 Resp normal respiratory effort GI GI Narrative: Bilateral groins appear to be clean dry and intact. As are the incisions Assessment & Plan Assessment/Plan (1) Bilateral inguinal hernia: QUALIFIERS: Obstruction and gangrene presence: without obstruction or gangrene Recurrence: non-recurrent Qualified Code(s): K40.20 - Bilateral inguinal hernia, without obstruction or gangrene, not specified as recurrent PLAN: I have very much encouraging the patient to get up and mobilize. I was anticipating him going home with a Amaro catheter in but nursing protocol has removed it. We will await now to see if the patient is able to void. I have encouraged the patient to get up out of bed with assistance be in a chair use his I-S clear his lungs. I am still anticipating discharge later today. The patient is requiring some motivation. Gomez Orozco M.D., F.A.C.S.
[2021-09-11 09:34] VITALS: BP 132/72; PULSE 85; RESP 18; TEMP 37.1; O2SAT 97
[2021-09-11] MEDS: Polyethylene Glycol 3350 17 GM PACKET PO (09:41)
[2021-09-11] MEDS: Gabapentin 300 MG Capsule PO (09:41)
[2021-09-11] MEDS: Finasteride 5 MG Tablet PO (09:42)
[2021-09-11] MEDS: Pantoprazole Sodium 40 MG Tablet PO (09:42)
[2021-09-11] MEDS: Ramipril 10 MG Capsule PO (09:42)
[2021-09-11] MEDS: Doxycycline 100 MG CAPSULE PO (09:42)
[2021-09-11] MEDS: traMADol 50 MG Tablet PO (12:05)
== END 2021-09-11 13:56 | disposition home or self-care (01) ==
LOC: SDC 17:06 → MS3 20:40
PROVIDERS: Admitting Provider Surgery; PCP Internal Medicine; Referring Provider Surgery; Visit Provider Surgery
PROC: (CPT 49650; principal; 2021-09-10 07:10)
DX: K40.20 Bilateral inguinal hernia, without obstruction or gangrene, not specified as recurrent (principal); K42.0 Umbilical hernia with obstruction, without gangrene; M48.00 Spinal stenosis, site unspecified; M51.26 Other intervertebral disc displacement, lumbar region; Z79.899 Other long term (current) drug therapy; N40.0 Benign prostatic hyperplasia without lower urinary tract symptoms; I10 Essential (primary) hypertension; I25.10 Atherosclerotic heart disease of native coronary artery without angina pectoris; F17.220 Nicotine dependence, chewing tobacco, uncomplicated; E78.5 Hyperlipidemia, unspecified; G47.33 Obstructive sleep apnea (adult) (pediatric); E03.9 Hypothyroidism, unspecified; R09.89 Other specified symptoms and signs involving the circulatory and respiratory systems; K90.0 Celiac disease; Z86.2 Personal history of diseases of the blood and blood-forming organs and certain disorders involving the immune mechanism
CPT/HCPCS: 49650; 49653; 00840; 85610; 85730; 88302; 93005; 96374; 99218; 99251; 99406; J7120; A4216; C1781; G0378; G0463; J2405

== ENCOUNTER → 2021-11-21 | Outpatient (CLI) | payer MEDICARE, SELFPAY ==
--- NOTE | 2021-11-21 10:52 | BD_ITS ---
STUDY: DUAL ENERGY X-RAY ABSORPTIOMETRY / DXA REASON FOR EXAM: Male, 86 years old. M810 TECHNIQUE: Bone Mineral Density (BMD) measurements of lumbar spine and bilateral hips were obtained. COMPARISON: Comparison is made with prior study 10/09/2015. FINDINGS: Lumbar Spine (L1-L4): g/cm2 (0.821) / T-score (-2.4) / Z-score (-1.1) Findings are suggestive of osteopenia with a high fracture risk. Left Femur Total: g/cm2 (0.595) / T-score (-2.9) / Z-score (-1.6) Left Femoral Neck: g/cm2 (0.474) / T-score (-3.4) / Z-score (-1.6) Right Femur Total: g/cm2 (0.511) / T-score (-3.5) / Z-score (-2.2) Right Femoral Neck: g/cm2 (0.494) / T-score (-3.2) / Z-score (-1.5) The T-Scores on the most recent prior examination were: Lumbar Spine (L1-L4): There has been improvement of bone density since the previous examination. Left Femur Total: which represents a worsening of 12.8%. Right Femur Total: which represents a worsening of 14%. BD/Dexa Bone Density Study IMPRESSION: The patient is considered osteoporotic as outlined below according to World [place] Organization (WHO) criteria with a high fracture risk. There has been worsening of bone density since the previous examination. Reference Information: The T-score is the number of standard deviations above or below the standard which is normal for young adults at their peak bone mineral density. The World Health Organization (WHO) interprets the T-scores as follows: Above -1 Normal bone density Between -1 and -2.5 Osteopenia Equal to / or below -2.5 Osteoporosis As a practical clinical guideline, osteopenia may be graded as follows: Mild -1 through -1.5 Moderate -1.6 through -2.0 Severe -2.1 through -2.4 The Z-score is the number of standard deviations above or below age-matched controls. A Z-score of less than -1.5 would be considered abnormal. References: 1. NIH Osteoporosis and Related Bone Diseases www osteo.org 2. International Society for Clinical Densitometry www iscd.org 3. National Osteoporosis Foundation www nof.org Electronically Signed: Fox Medeiros MD at 9:30 EDT ,
== END | disposition home or self-care (01) ==
LOC: OPBD 10:38
PROVIDERS: PCP Internal Medicine; Referring Provider Internal Medicine; Visit Provider Internal Medicine
DX: M81.0 Age-related osteoporosis without current pathological fracture (principal)
CPT/HCPCS: 77080

== ENCOUNTER → 2022-02-07 | Outpatient (CLI) | payer MEDICARE, SELFPAY ==
--- NOTE | 2022-02-07 08:51 | ART_ITS ---
Reason For Study: PAD Procedure A bilateral lower extremity continuous wave Doppler with analog waveform analysis,segmental pressures,and ankle brachial indexes without exercise. Left Segmental Pressures Left brachial= 150mmHg. Left calf = >254mmHg. Left posterior tibial artery = >254mmHg. Left dorsalis pedis artery = >254mmHg. Left digit = 137 mmHg. The left posterior tibial artery waveforms are triphasic. The left dorsalis pedis waveforms are triphasic. Right Segmental Pressures Right brachial= 167mmHg. Right posterior tibial artery = 175mmHg. Right dorsalis pedis artery = 195mmHg. Right digit = 113 mmHg. The right posterior tibial artery waveforms are triphasic. The right dorsalis pedis waveforms are triphasic. Indices The right ankle brachial index by the posterior tibial artery is 1.05. The right ankle brachial index by the dorsalis pedis is 1.17. The right digital-brachial index is 0.68. The left ankle brachial index by the dorsalis pedis is N/C. The left ankle brachial index by the posterior tibial artery is N/C. The left digital-brachial index is 0.82. VL/Lower Ext Art Exam w/o Exercis Interpretation Summary Normal right lower extremity posterior tibialis and dorsalis pedis ankle-brachi al indices of 1.05 and 1.17 respectively with normal triphasic Doppler waveforms Abnormal right digital brachial index of 0.68 which would correlate with distal small vessel disease or temperature affect. Clinical correlation would be appropriate. Unable to calculate the left lower extremity ankle-brachial indices secondary t o noncompressible vessels. Triphasic Doppler waveforms for the left posterior tibialis and dorsal is pedis suggesting possibly a more mild level of disease.Normal left digital brachial index of 0.8 2 Ordering Physician: Ximena Haines Referring Physician: XIMENA HAINES MD Performed By: Butch Newton, RVT
--- NOTE | 2022-02-07 08:51 | RDU_ITS ---
Reason For Study: Stenosis Right Renal Artery Left Renal Artery Right renal artery ostium 87.6/19.5 Left renal artery ostium 114.9/16.3 RSV/EDV. PSV/EDV. Right renal artery proximal Left renal artery proximal PSV/EDV 103.0/22.8 PSV/EDV. 120.4/12.6 . Right renal artery mid 124.5/25.6 Left renal artery mid 78.4/12.6 PSV/EDV. PSV/EDV . Right renal artery distal 79.3/21.8 Left renal artery distal 109.4/25.4 PSV/EDV. PSV/EDV. Right RAR 1.79. Left RAR 1.73. Right Renal Parenchyma Left Renal Parenchyma Upper Pole Medula 24.5/10.2 Left upper pole medulla 22.6/5.6 PSV/EDV. PSV/EDV . Right upper pole medulla EDR 0.40 . Left upper pole medulla EDR 0.20 . Right upper pole medulla R.I. Left upper pole medulla R.I. 0.75 . 0.58 . UP Cortex 15.1/3.7 PSV/EDV. Upper Matt Cortx 28.4/8.9 PSV/EDV. Left upper pole cortex EDR 0.20 . Right upper pole cortex EDR 0.31 . Left upper pole cortex R.I. 0.75 . Right upper pole cortex R.I. 0.70 . Left lower Pole medulla 19.8/5.1 Right lower Pole medulla 30.0/7.9 PSV/EDV . PSV/EDV . Left lower pole medulla EDR 0.30 . Right lower pole medulla EDR 0.30 . Left lower pole medulla R.I. 0.74 . Right lower pole medulla R.I. Lower Pole Cortx 15.1/5.6 PSV/EDV. 0.74 . Left lower pole cortex EDR 0.40 . Lower Pole Cortex 17.7/6.1 PSV/EDV. Left lower pole cortex R.I. 0.63 . Right lower pole cortex EDR 0.34 . Left Renal Hilar Right lower pole cortex R.I. 0.68 . LT Hilar avg 63.2/18.8 PSV/EDV . Right Renal Hilar Left hilar acceleration time 90 Right Hilar avg 93.8/18.6 PSV/EDV. m/sec. Right hilar acceleration time 150 Left Renal Dimensions m/sec. Left kidney size 8.20 cm . Right Renal Dimensions Left cortical dimension 1.25 cm . Right kidney size 9.72 cm . Right cortical dimension 1.17 cm . Anechoic non vascularized area noted within kidney measuring 1.18cm x 1.16cm. Aorta Proximal abdominal aorta 2.24 cm . Distal abdominal aorta 1.66 cm . Proximal abdominal aorta peak systolic velocity is 62.7 cm/sec . Distal abdominal aorta peak systolic velocity is 69.4 cm/sec . VL/Renal Artery Duplex Ultrasound Interpretation Summary Less than 60% stenosis bilateral renal arteries Maintained right renal length 9.72 cm. Anechoic structure right kidney measurin g 1.18 x 1.16 cm consistent with a cyst. Clinical correlation would be appropriate Borderline left renal length 8.2 cm No change from the previous examination of March 18, 2017 other than decrease d renal length from previous 9 cm on the left Ordering Physician: Ximena Haines Referring Physician: Ximena Haines Performed By: Butch Newton, RVT
== END | disposition home or self-care (01) ==
LOC: CVS 08:50
PROVIDERS: PCP Internal Medicine; Referring Provider Internal Medicine; Visit Provider Internal Medicine
DX: I70.1 Atherosclerosis of renal artery (principal); I73.9 Peripheral vascular disease, unspecified
CPT/HCPCS: 93923; 93975

== ENCOUNTER → 2022-02-18 | Outpatient (CLI) | payer MEDICARE, SELFPAY ==
[2022-02-18 14:02] LABS: Cholesterol 118 mg/dL (200); High Density Lipoprotein 52 mg/dL; Triglycerides 60 mg/dL; Very Low Density Lipoprotein 12 mg/dL (5-40)
== END | disposition home or self-care (01) ==
LOC: MTLAB 08:50
PROVIDERS: PCP Internal Medicine; Referring Provider Internal Medicine Cardiovascular Disease; Visit Provider Internal Medicine Cardiovascular Disease
DX: E78.00 Pure hypercholesterolemia, unspecified (principal)
CPT/HCPCS: 36415; 80061

== ENCOUNTER → 2022-03-07 | Outpatient (CLI) | payer MEDICARE, SELFPAY ==
[2022-03-07 10:54] LABS: Anion Gap 4 (5-15); BUN 24 mg/dL (7-18); BUN/Creat Ratio 20.2 RATIO (10-20); Chloride 108 mmol/L (98-107); Creatinine, Serum 1.19 mg/dL (0.70-1.30); EST Glomerular Filtration Rate 62 mL/min (>60); Est Glom Filt Rate - Afr Amer 74 mL/min (>60); Glucose 92 mg/dL (74-106); Potassium 4.5 mmol/L (3.5-5.1); Sodium Level 139 mmol/L (136-145)
== END | disposition home or self-care (01) ==
LOC: MTLAB 09:27
PROVIDERS: PCP Internal Medicine; Referring Provider Nurse Practitioner Family; Visit Provider Nurse Practitioner Family
DX: I10 Essential (primary) hypertension (principal); I35.0 Nonrheumatic aortic (valve) stenosis; E78.5 Hyperlipidemia, unspecified; Z95.5 Presence of coronary angioplasty implant and graft
CPT/HCPCS: 36415; 80048

== ENCOUNTER → 2022-08-07 | Outpatient (CLI) | payer MEDICARE, SELFPAY ==
[2022-08-07 11:04] LABS: AST(SGOT) 23 U/L (15-37); Alanine Aminotransfer ALT/SGPT 20 U/L (16-61); Albumin, Serum 3.5 g/dL (3.2-5.0); Alkaline Phosphatase 51 U/L (45-117); Anion Gap 8 (5-15); BUN 32 mg/dL (7-18); BUN/Creat Ratio 24.1 RATIO (10-20); Calcium,Total 8.6 mg/dL (8.5-10.1); Chloride 109 mmol/L (98-107); Cholesterol 110 mg/dL (200); Creatinine, Serum 1.33 mg/dL (0.70-1.30); EST Glomerular Filtration Rate 54 mL/min (>60); Est Glom Filt Rate - Afr Amer 65 mL/min (>60); Globulin 3.4 g/dL (2.2-4.2); Glucose 104 mg/dL (74-106); High Density Lipoprotein 57 mg/dL; Potassium 4.2 mmol/L (3.5-5.1); Protein, Total 6.9 g/dL (6.4-8.2); Sodium Level 139 mmol/L (136-145); Triglycerides 38 mg/dL; Uric Acid 7.2 mg/dL (3.5-7.2); Very Low Density Lipoprotein 8 mg/dL (5-40)
[2022-08-07 12:33] LABS: Absolute Lymphocyte Count 1.17 X10^3/uL (0.83-4.51); Absolute Neutrophil Count 3.1 X10^3/uL (2.0-7.7); Basophil# 0.06 X10^3/uL; Basophil% 1.2 % (0-1); Eosinophil# 0.19 X10^3/uL; Eosinophils% 3.8 % (0-5); Hematocrit 30.6 % (40-54); Hemoglobin 9.9 g/dL (13.0-16.5); Lymphocyte # 1.17 X10^3/ul (0.83-4.51); Lymphocyte % 23.2 % (19-41); Mean Corp Hgb Conc 32.4 g/dL (32-36); Mean Corpuscular Hgb 28.7 pg (27.0-32.0); Mean Corpuscular Volume 88.7 fL (80-94); Mean Platelet Vol. 11.1 fl (6.2-12.0); Monocyte# 0.53 X10^3/uL; Monocyte% 10.5 % (0-10); NRBC Flagged by Analyzer 0 % (0-5); Neutrophil # 3.09 X10^3/uL (2.7-7.7); Neutrophil % 61.3 % (47-70); Platelet Count 219 K/mm3 (150-450); RBC Distribution Width CV 14.8 % (11.6-14.6); RBC Distribution Width SD 48.3 fl (35.1-43.9); Red Blood Count 3.45 M/mm3 (4.6-6.2)
== END | disposition home or self-care (01) ==
LOC: MTLAB 09:47
PROVIDERS: Internal Medicine Cardiovascular Disease; PCP Internal Medicine; Referring Provider Internal Medicine Rheumatology; Visit Provider Internal Medicine Rheumatology
DX: M06.4 Inflammatory polyarthropathy (principal); K90.0 Celiac disease; M81.0 Age-related osteoporosis without current pathological fracture; E78.5 Hyperlipidemia, unspecified; E03.9 Hypothyroidism, unspecified; N40.0 Benign prostatic hyperplasia without lower urinary tract symptoms
CPT/HCPCS: 36415; 80053; 80061; 82248; 84550; 85025

== ENCOUNTER → 2023-01-28 | Outpatient (CLI) | payer MEDICARE, SELFPAY ==
[2023-01-28 12:50] LABS: Absolute Lymphocyte Count 1.16 X10^3/uL (0.83-4.51); Basophil# 0.05 X10^3/uL; Basophil% 0.8 % (0-1); Eosinophil# 0.18 X10^3/uL; Hematocrit 28.5 % (40-54); Hemoglobin 8.8 g/dL (13.0-16.5); Lymphocyte # 1.16 X10^3/ul (0.83-4.51); Lymphocyte % 19.2 % (19-41); Mean Corp Hgb Conc 30.9 g/dL (32-36); Mean Corpuscular Hgb 27.1 pg (27.0-32.0); Mean Corpuscular Volume 87.7 fL (80-94); Mean Platelet Vol. 10.6 fl (6.2-12.0); Monocyte# 0.58 X10^3/uL; Monocyte% 9.6 % (0-10); NRBC Flagged by Analyzer 0 % (0-5); Neutrophil # 4.01 X10^3/uL (2.7-7.7); Neutrophil % 66.4 % (47-70); Platelet Count 298 K/mm3 (150-450); RBC Distribution Width CV 14.2 % (11.6-14.6); RBC Distribution Width SD 45.8 fl (35.1-43.9); Red Blood Count 3.25 M/mm3 (4.6-6.2)
[2023-01-28 12:56] LABS: ALB/GLOB Ratio 0.8 RATIO (0.9-2.4); AST(SGOT) 14 U/L (15-37); Alanine Aminotransfer ALT/SGPT 15 U/L (16-61); Albumin, Serum 3.2 g/dL (3.2-5.0); Alkaline Phosphatase 70 U/L (45-117); Anion Gap 10 (5-15); BUN 20 mg/dL (7-18); BUN/Creat Ratio 15.3 RATIO (10-20); Calcium,Total 8.4 mg/dL (8.5-10.1); Chloride 105 mmol/L (98-107); Creatinine, Serum 1.31 mg/dL (0.70-1.30); EST Glomerular Filtration Rate 55 mL/min (>60); Est Glom Filt Rate - Afr Amer 67 mL/min (>60); Globulin 3.9 g/dL (2.2-4.2); Glucose 84 mg/dL (74-106); Protein, Total 7.1 g/dL (6.4-8.2); Sodium Level 139 mmol/L (136-145); Uric Acid 6.4 mg/dL (3.5-7.2)
== END | disposition home or self-care (01) ==
PROVIDERS: PCP Internal Medicine; Referring Provider Internal Medicine Rheumatology; Visit Provider Internal Medicine Rheumatology
DX: M06.4 Inflammatory polyarthropathy (principal); K90.0 Celiac disease; M81.0 Age-related osteoporosis without current pathological fracture
CPT/HCPCS: 36415; 80053; 84550; 85025

== ENCOUNTER 2023-02-24 21:58 | Emergency (ER) | payer MEDICARE, SELFPAY ==
[2023-02-24 22:00] VITALS: BP 116/62; PULSE 82; RESP 15; TEMP 37.3; O2SAT 99
--- NOTE | 2023-02-24 22:07 | ED.VIS.DYS ---
HPI History of Present Illness Chief Complaint: Shortness of Breath Informant: patient and family Narrative Narrative: Patient presents with cough. It takes quite a bit of questioning to get details. The below is the best summary that I can get from him. It sounds like he started feeling ill yesterday. He states his blood pressure was lower in the morning at about 88. It sounds like he normally runs about 120. But then after that he felt okay. He does not feel short of breath. He does admit to coughing. He states it is loose and it is not yellow but he cannot describe what it does look like. There is no apparent blood. He is still eating and drinking. But his volunteers that he did not make as much urine a couple days ago as he normally does. But he states that is now back to normal. He is not having any dysuria. He drinks about 74 ounces a day of liquid. There are no new medications. No known fever. No travel surgery immobilization personal or family history of DVT or PE. He does have known heart disease. He states he is sore because he has been coughing. But he will alternately say he does not and he does have some chest pain over the last couple days. But he also states that he normally takes about 4 TRAM all at today and has not taken those nor has he taken Tylenol. [facility] Medical History (Updated 02/25/23 @ 01:[address] 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) History of intracranial hemorrhage History of stress test Hx of Clostridium difficile infection Hx of transfusion of whole blood Hyperlipidemia Hypothyroidism Infection of prosthetic left knee joint Left carotid artery stenosis Low iron Neoplasm of skin Non-rheumatic aortic stenosis Obesity Obstructive sleep apnea Osteoporosis Poor balance Renal artery stenosis S/P transesophageal echocardiogram ([place]) Sciatic nerve injury Walker as ambulation aid Wears dentures Home Medications finasteride 5 mg tablet (Proscar) 5 mg PO DAILY PROSTATE 09/21/13 [History Last Taken 06/05/18] gabapentin 300 mg capsule 300 mg PO BID NERVE PAIN 09/21/13 [History Last Taken 06/06/18] pravastatin 80 mg tablet 80 mg PO QHS CHOLESTROL 09/21/13 [History Last Taken 06/06/18] tamsulosin 0.4 mg capsule 0.4 mg PO QHS BLADDER 09/21/13 [History Last Taken 06/05/18] L.acidoph, paracasei,B. lactis 10 billion cell capsule 2 ea PO BID SUPPLEMENT 10/25/15 [History Last Taken 06/06/18] cholecalciferol (vitamin D3) 125 mcg (5,000 unit) tablet 5,000 unit PO QHS supplement 06/05/18 [History Last Taken 06/05/18] cyanocobalamin (vitamin B-12) 1,000 mcg tablet 1,000 mcg PO DAILY supplement 06/05/18 [History Last Taken 06/06/18] risedronate 150 mg tablet (Actonel) 150 mg PO QMONTH bone health 09/30/19 [History Last Taken Unknown] acetaminophen 650 mg tablet,extended release (Tylenol 8 Hour) 325 mg PO TID pain 04/04/20 [History Last Taken Unknown] metoprolol succinate 25 mg tablet,extended release 24 hr 25 mg PO DAILY blood pressure 04/04/20 [History Last Taken 09/10/21] doxycycline hyclate 100 mg capsule 100 mg PO BID post stent placement 06/21/21 [History Last Taken Unknown] polysaccharide iron complex 150 mg iron capsule 150 mg PO BID supplement 06/21/21 [History Last Taken Unknown] hydroxychloroquine 200 mg tablet (Plaquenil) 200 mg PO BID 07/30/21 [History Last Taken Unknown] tramadol 50 mg tablet 50 mg PO Q4H PRN Pain 07/30/21 [History Last Taken Unknown] hydrocodone-acetaminophen 5-325mg 5mg-325mg 1 tab PO Q8H PRN pain 2 days #6 tabs 09/10/21 [Rx Last Taken Unknown] polyethylene glycol 3350 17 gram/dose oral powder (Miralax) 17 g PO DAILY #119 grams 09/10/21 [Rx Last Taken Unknown] amlodipine 10 mg tablet 10 mg PO DAILY 02/21/22 [History Last Taken Unknown] levothyroxine 100 mcg tablet 50 mcg PO DAILY 02/21/22 [History Last Taken Unknown] clopidogrel 75 mg tablet (Plavix) 75 mg PO DAILY #90 tabs 12/10/22 [Rx Last Taken Unknown] ramipril 10 mg capsule 10 mg PO BID #180 caps 02/17/23 [Rx Last Taken Unknown] Allergy/AdvReac Type Severity Reaction Status Date / Time lidocaine Allergy Hives Verified 02/24/23 22:05 cephalexin [From Keflex] AdvReac confusion Verified 02/24/23 22:05 Family History Brother Myocardial infarction, Onset Age: 60 Brother Myocardial infarction, Onset Age: 65 Father Myocardial infarction, Onset Age: 60 Brother CVA (cerebral vascular accident) Son CVA (cerebral vascular accident) Surgical History History of back surgery History of cataract surgery History of coronary artery stent placement (05/31/18) History of tonsillectomy and adenoidectomy Hx of knee surgery Hx of total knee replacement Social History Smoking Status: Never smoker Smokeless tobacco user: chewing tobacco alcohol intake: never substance use type: does not use caffeine: Yes Type: carbonated beverages Number of servings: 1 ROS ROS ED ROS Narrative A complete review of systems was performed and is negative except as documented in the history of present illness. Some specific details below. Constitutional: No recent fevers or chills. Temperature has not been taken. EYE: No discharge, visual complaints, or pain. ENT: No difficulty swallowing. No swelling. No pain. No reflux symptoms. CV: It sounds like he may have had some chest discomfort over the last day or so. But is denying it now. When I press on the chest he does state, you can feel it. Respiratory: See history of present illness. GI: No abdominal pain. No nausea vomiting diarrhea. No blood in stool. It sounds like he has been eating and drinking normal amounts. : No frequency dysuria or hematuria. Decreased urination yesterday in terms of volume but back to normal now. Musculoskeletal: No recent trauma. No pains or myalgias. It does sound like he takes gabapentin and tramadol and Tylenol for chronic pains diffusely but I cannot get that anything is different. No swelling. Skin: No rash. Nondiaphoretic. Neuro: No focal weakness or numbness. Endocrine: No polyuria or polydipsia. EXAM Physical Exam Narrative Exam Narrative: CONSTITUTIONAL: Patient is nontoxic in appearance. The patient looks comfortable. Work of breathing looks normal. HEENT: No notable trauma. Mucous membranes do look rather dry. No sinus tenderness. No indication of pain with swallowing. EYES: No conjunctival injection. No proptosis. No significant pallor. No notable icterus. NECK:No JVD. No stridor. CARDIOVASCULAR: Regular rate. Regular rhythm. He does have a 2/6 systolic murmur. RESPIRATORY: No respiratory distress. Breathing is unlabored. No wheezes. No rhonchi. No rales. He does appear to get some pain with a deep breath but it does not cause cessation of inspiration. He does appear to have some anterior chest wall tenderness. GASTROINTESTINAL: Not distended. Bowel sounds are normal. No tenderness. No guarding. No rebound. No palpable mass. No bruit is heard. GENITOURINARY: No tenderness over the bladder. No CVA tenderness. MUSCULOSKELETAL: Atraumatic. No peripheral edema. No cord. No tenderness along the deep venous system. No asymmetry. No distended veins. NEUROLOGICAL: Patient is alert and appropriate. No focal deficit noted. SKIN: No noted rashes. No diaphoresis. PSYCHIATRIC: Patient is calm. Mood is appropriate. Const Vital Signs: 02/24/23 22:00 02/24/23 22:25 02/24/23 22:26 Temperature 99.1 F Temperature Source Temporal Pulse Rate 82 Respiratory Rate 15 Respiratory Effort Normal Non-Labored Respiratory Depth Normal Respiratory Pattern Tachypnea Blood Pressure 116/62 Blood Pressure Mean 80 Pulse Ox 99 Oxygen Delivery Method Room Air Room Air Room Air 02/24/23 23:00 02/25/23 00:00 02/25/23 00:08 Temperature Temperature Source Pulse Rate 75 81 Respiratory Rate 26 H 24 H Respiratory Effort Respiratory Depth Respiratory Pattern Blood Pressure 136/70 H 127/67 H Blood Pressure Mean 90 84 Pulse Ox 97 98 Oxygen Delivery Method 02/25/23 00:10 02/25/23 00:15 02/25/23 01:30 Temperature Temperature Source Pulse Rate 81 79 74 Respiratory Rate 25 H 23 H 21 H Respiratory Effort Respiratory Depth Respiratory Pattern Blood Pressure 129/69 H 129/65 H Blood Pressure Mean 88 86 Pulse Ox 98 96 94 Oxygen Delivery Method Room Air MDM MDM MDM Narrative Medical decision making narrative: My independent interpretation of the patient's PA and lateral chest x-ray shows Patient CBC shows normal white count. Hemoglobin is a bit low at 8.1. But he denies black or bloody stools. This has been trending down for some months. This does not require transfusion at this time. Platelets are normal. Patient's electrolytes show chronic renal insufficiency. Minimally low sodium. Glucose is minimally up at 132. Patient's BNP is mildly elevated at 282.8. Patient's D-dimer is elevated at 2.97. This is elevated even for his age Patient's troponin is negative at 18. Urinalysis shows no acute process. With his symptoms, elevated D-dimer and abnormal chest x-ray we did do CTA of the chest. My independent interpretation of the CTA does not show an obvious pulmonary embolus. Final reading shows no pulmonary embolus. No infiltrate. Trace pericardial effusion that I do not think is causing his symptoms. I also note some cholelithiasis and sludge but no evidence of acute cholecystitis. Of note, the CT readings were not crossing to our system. We had called about these. Show there was a slight delay in getting this final result. I talked with the patient. We also talked about his blood counts. He states he used to get iron infusions for this but it has been some years. He has celiac disease so they do not think he absorbs oral iron well. But he denies any black or bloody bowel movements. He has been encouraged not to have another colonoscopy at his age unless there is significant bleeding. I do not think we need to do acute treatment for his anemia now but this does need close follow-up. He will follow-up with his primary physician. I explained that his coughing is likely viral. I am not seeing signs of significant congestive heart failure signs and pneumonia. Lab Data Attestation: I reviewed the patient's lab results. Labs: Laboratory Results - last 24 hr 02/24/23 02/24/23 20:30 22:35 WBC 10.1 RBC 3.01 L Hgb 8.1 L Hct 25.5 L MCV 84.7 MCH 26.9 L MCHC 31.8 L RDW Std Deviation 46.1 H RDW Coeff of Juanis 15.0 H Plt Count 251 MPV 10.6 Immature Gran % (Auto) 0.700 Neut % (Auto) 81.0 H Lymph % (Auto) 6.1 L Lares % (Auto) 10.4 H Eos % (Auto) 1.6 Baso % (Auto) 0.2 Absolute Neuts (auto) 8.2 H Absolute Lymphs (auto) 0.62 L Nucleated RBC % 0 D-Dimer Quant (PE/DVT) 2.97 H* Sodium 134 L Potassium 4.1 Chloride 104 Carbon Dioxide 24.0 Anion Gap 6 BUN 27 H Creatinine 1.36 H Estim Creat Clear Calc 34.53 Est GFR (MDRD) Af Amer 64 Est GFR (MDRD) Non-Af 53 L BUN/Creatinine Ratio 19.9 Glucose 132 H Lactic Acid 1.4 Calcium 8.6 Troponin I High Sens 18 B-Natriuretic Peptide 282.8 H Urine Color Yellow Urine Clarity Clear Urine pH 6.5 Ur Specific [place] 1.010 Urine Protein 15 H Urine Glucose (UA) Normal Urine Ketones Negative Urine Occult Blood Negative Urine Nitrite Negative Urine Bilirubin Negative Urine Urobilinogen Normal Ur Leukocyte Esterase Negative Urine RBC 0 SEEN Urine WBC 0 SEEN Ur Squamous Epith Cells 0 SEEN Urine Bacteria 0 SEEN Urine Mucus 0 SEEN Radiography Diagnostic Testing: Clinical Impression(s) from Imaging Studies Chest X-Ray 02/24/23 22:46 IMPRESSION: 1. Left basilar pulmonary opacity may be atelectasis or pneumonia. Possible small left pleural effusion. 2. Borderline cardiomegaly and/or pericardial effusion. Electronically Signed: Jacky Ramirez DO at 23:06 EST , EKG Initial EKG: Comments: My independent interpretation of the patient's EKG shows sinus rhythm with first-degree AV block and overall rate of 78. No ventricular ectopy. Nonspecific ST and T wave change but no evidence of acute infarct or ischemia. MN interval is long. QRS duration and QTc are normal. Discharge Plan Triage Chief Complaint: Shortness of Breath ED Provider: Raul Marx Dx/Rx/DC Orders Clinical Impression: Viral URI with cough, Chronic anemia Instructions: ED URI, Viral, No Abx (Adult) Prescriptions: No Action acetaminophen [Tylenol 8 Hour] 650 mg tablet extended release 325 mg PO TID risedronate [Actonel] 150 mg tablet 150 mg PO QMONTH levothyroxine 100 mcg tablet 50 mcg PO DAILY amlodipine 10 mg tablet 10 mg PO DAILY pravastatin 80 MG tablet 80 mg PO QHS Patient Comments: CHOLESTEROL LOWERING tamsulosin 0.4 MG capsule 0.4 mg PO QHS Patient Comments: PROSTATE gabapentin 300 MG capsule 300 mg PO BID Patient Comments: NERVE PAIN finasteride [Proscar] 5 MG tablet 5 mg PO DAILY L.acidoph, paracasei,B. lactis 1 EACH capsule 2 ea PO BID cyanocobalamin (vitamin B-12) 1,000 MCG tablet 1,000 mcg PO DAILY cholecalciferol (vitamin D3) 5,000 UNIT tablet 5,000 unit PO QHS polysaccharide iron complex 150 MG capsule 150 mg PO BID doxycycline hyclate 100 mg capsule 100 mg PO BID Patient Comments: TAKE 1 CAPSULE BY MOUTH TWICE DAILY tramadol 50 mg Tablet 50 mg PO Q4H PRN (Reason: Pain) hydroxychloroquine [Plaquenil] 200 mg Tablet 200 mg PO BID polyethylene glycol 3350 [Miralax] 17 gram/dose powder 17 g PO DAILY Qty: 119 0RF hydrocodone-acetaminophen 5-325 mg tablet 1 tab PO Q8H PRN (Reason: pain) 2 Days Qty: 6 0RF metoprolol succinate 25 mg tablet extended release 24 hr 25 mg PO DAILY clopidogrel [Plavix] 75 mg tablet 75 mg PO DAILY Qty: 90 3RF Hold Instructions: Resume on 09/15/21. ramipril 10 mg capsule 10 mg PO BID Qty: 180 3RF Primary Care Provider: Ximena Haines Referrals: Ximena Haines MD [Primary Care Provider] - As soon as possible Disposition Disposition: Home, Self Care
--- NOTE | 2023-02-24 22:20 | EKG12_ITS ---
Test Reason : SOB Blood Pressure : / mmHG Vent. Rate : 078 BPM Atrial Rate : 078 BPM P-R Int : 314 ms QRS Dur : 092 ms QT Int : 372 ms P-R-T Axes : 071 015 026 degrees QTc Int : 424 ms Sinus rhythm with 1st degree A-V block Otherwise normal ECG Confirmed by MARTY DUNN, DENICE ([id number]), sound editor RAJINDER FINK ([id number]) on 02/26/2023 10:31:50 AM Referred By: Confirmed By:DENICE FERGUSON MD
[2023-02-24 22:26] VITALS: O2SAT 99
[2023-02-24 22:27] VITALS: BMI 28.5
--- NOTE | 2023-02-24 22:46 | RAD_ITS ---
EXAM: XR CHEST, 2 VIEWS CLINICAL INDICATION: cough TECHNIQUE: Frontal and lateral views of the chest. COMPARISON: 06/24/2021 FINDINGS: LUNGS AND PLEURAL SPACES: Left basilar pulmonary opacity may be atelectasis or pneumonia. Possible small left pleural effusion. No pneumothorax. HEART: Borderline cardiomegaly and/or pericardial effusion. MEDIASTINUM: Central airways and mediastinal contour are unremarkable. BONES/JOINTS: Degenerative changes in the spine and shoulders. No acute fracture. SOFT TISSUES: No significant abnormality. VASCULATURE: Atherosclerosis. RAD/Chest PA and Lateral IMPRESSION: 1. Left basilar pulmonary opacity may be atelectasis or pneumonia. Possible small left pleural effusion. 2. Borderline cardiomegaly and/or pericardial effusion. Electronically Signed: Jacky Ramirez DO at 23:06 EST ,
[2023-02-24 22:47] LABS: Bacteria 0 SEEN /hpf (None Seen); Mucous, Urine 0 SEEN /hpf (<or=2+); Red Blood Cells-Urine 0 SEEN /hpf (0-5); Squamous Epithelial Cells - UA 0 SEEN /hpf (0-5); White Blood Cells 0 SEEN /hpf (0-5)
[2023-02-24 22:51] LABS: Absolute Lymphocyte Count 0.62 X10^3/uL (0.83-4.51); Absolute Neutrophil Count 8.2 X10^3/uL (2.0-7.7); Basophil# 0.02 X10^3/uL; Basophil% 0.2 % (0-1); Eosinophil# 0.16 X10^3/uL; Eosinophils% 1.6 % (0-5); Hematocrit 25.5 % (40-54); Hemoglobin 8.1 g/dL (13.0-16.5); Lymphocyte # 0.62 X10^3/ul (0.83-4.51); Lymphocyte % 6.1 % (19-41); Mean Corp Hgb Conc 31.8 g/dL (32-36); Mean Corpuscular Hgb 26.9 pg (27.0-32.0); Mean Corpuscular Volume 84.7 fL (80-94); Mean Platelet Vol. 10.6 fl (6.2-12.0); Monocyte# 1.05 X10^3/uL; Monocyte% 10.4 % (0-10); NRBC Flagged by Analyzer 0 % (0-5); Neutrophil # 8.22 X10^3/uL (2.7-7.7); Platelet Count 251 K/mm3 (150-450); RBC Distribution Width SD 46.1 fl (35.1-43.9); Red Blood Count 3.01 M/mm3 (4.6-6.2); White Blood Count 10.1 K/mm3 (4.4-11.0)
[2023-02-24 22:54] LABS: Color, Urine Yellow (Yellow); Glucose, Dipstick Normal (Normal); Ketone-Dipstick Negative (Negative); Leukocyte Esterase-Dipstick Negative /ul (Negative); Nitrite-Dipstick Negative (Negative); Occult Blood-Urine Negative /ul (Negative); Protein-Dipstick 15 mg/dl (Negative); Urine Bilirubin Dipstick Negative (Negative); Urine Clarity Clear (Clear); Urine Urobilinogen Normal (Normal); Urine pH 6.5 (5.0 - 8.0)
[2023-02-24 23:00] VITALS: BP 136/70; PULSE 75; RESP 26; O2SAT 97
[2023-02-24 23:08] LABS: BNP,B-Type NATRIURETIC PEPTIDE 282.8 pg/mL (0-100)
[2023-02-24 23:10] LABS: Anion Gap 6 (5-15); BUN 27 mg/dL (7-18); BUN/Creat Ratio 19.9 RATIO (10-20); Calcium,Total 8.6 mg/dL (8.5-10.1); Chloride 104 mmol/L (98-107); Creatinine, Serum 1.36 mg/dL (0.70-1.30); EST Glomerular Filtration Rate 53 mL/min (>60); Est Glom Filt Rate - Afr Amer 64 mL/min (>60); Estimated Creatinine Clearance 34.53 ml/min; Glucose 132 mg/dL (74-106); Potassium 4.1 mmol/L (3.5-5.1); Sodium Level 134 mmol/L (136-145); Troponin-I HS 18 pg/mL (3.0-78.0)
[2023-02-24 23:15] LABS: Lactic Acid 1.4 mmol/L (0.4-1.9)
[2023-02-24 23:20] LABS: D-Dimer Quantitative (DVT/PE) 2.97 FEU/ug/m (0.27-0.49)
[2023-02-25] VITALS: BP 127/67
--- NOTE | 2023-02-25 | CT_ITS ---
STUDY: CTA CHEST REASON FOR EXAM: Male, 87 years old. Elevated d-dimer RADIATION DOSAGE (If Supplied By Facility): CTDIvol = ( 10.21 ) mGy, DLP = ( 327.92 ) mGycm TECHNIQUE: The examination was performed with the intravenous administration of IV 100mL Isovue-370. Post-processing of the angiographic images was performed, with multiplanar reformation and 3D reconstruction. Individualized dose optimization techniques were used for this CT. COMPARISON: FINDINGS: Normal enhancement of the main pulmonary artery and right and left pulmonary arteries. Normal enhancement of the bilateral peripheral pulmonary arteries. There is no demonstrated pulmonary embolism. Thoracic aorta demonstrates no unusual dilatation or dissection. Minimal atherosclerotic plaque of the distal aortic arch. Normal heart and pericardium. Borderline cardiomegaly. Aortic root and coronary artery calcification. Trace pericardial effusion. No confluent pulmonary infiltrate. Bilateral dependent atelectasis versus scar formation. Normal chest wall structures. Mild multilevel degenerative changes in the spine. Visualized portions of the upper abdomen demonstrate calcified stones versus sludge layering in a mildly distended noninflamed gallbladder. CT/CTA Chest W/WO Contrast IMPRESSION: 1. No acute pulmonary embolism or acute airspace infiltrate. 2. Mild to moderate cardiomegaly with trace pericardial effusion. 3. Cholelithiasis versus sludge with no evidence of acute cholecystitis Electronically Signed: Sudarshan Tolentino MD at 1:03 EST ,
[2023-02-25 00:08] VITALS: PULSE 81; RESP 24; O2SAT 98
[2023-02-25 00:10] VITALS: PULSE 81; RESP 25; O2SAT 98
[2023-02-25 00:15] VITALS: BP 129/69; PULSE 79; RESP 23; O2SAT 96
[2023-02-25 01:30] VITALS: BP 129/65; PULSE 74; RESP 21; O2SAT 94
[2023-02-25 01:46] VITALS: BP 123/61; PULSE 75; RESP 25; O2SAT 95
== END 2023-02-25 02:06 | disposition home or self-care (01) ==
PROVIDERS: Emergency Provider Emergency Medicine; PCP Internal Medicine; Visit Provider Emergency Medicine
DX: J06.9 Acute upper respiratory infection, unspecified (principal); I25.10 Atherosclerotic heart disease of native coronary artery without angina pectoris; N18.9 Chronic kidney disease, unspecified; D50.9 Iron deficiency anemia, unspecified; G47.33 Obstructive sleep apnea (adult) (pediatric); Z86.73 Personal history of transient ischemic attack (TIA), and cerebral infarction without residual deficits
CPT/HCPCS: 71046; 71275; 80048; 81001; 82728; 83540; 83550; 83605; 83615; 83880; 84484; 85025; 85379; 87040; 87086; 87088; 87428; 93005; 99283; Q9967; A4216

== ENCOUNTER → 2023-02-24 | Outpatient (CLI) | payer MEDICARE, SELFPAY ==
[2023-02-26 00:19] LABS: Ferritin 134 ng/mL (26-388); Iron 10 ug/dL (65-175); Iron Binding Capacity,Total 204 ug/dL (250-450); LDH 177 U/L (87-241); PERCENT IRON SATURATION 4.9 % (15.0-55.0)
== END | disposition home or self-care (01) ==
LOC: LABSPEC 02-25 23:38
PROVIDERS: PCP Internal Medicine; Visit Provider Internal Medicine
DX: D50.9 Iron deficiency anemia, unspecified (principal)
CPT/HCPCS: 82728; 83540; 83550; 83615

== ENCOUNTER → 2023-03-18 | Outpatient (CLI) | payer MEDICARE, SELFPAY ==
[2023-03-18 10:36] LABS: Absolute Lymphocyte Count 1.28 X10^3/uL (0.83-4.51); Absolute Neutrophil Count 3.2 X10^3/uL (2.0-7.7); Basophil# 0.06 X10^3/uL; Basophil% 1.2 % (0-1); Eosinophil# 0.05 X10^3/uL; Hematocrit 27.5 % (40-54); Hemoglobin 8.6 g/dL (13.0-16.5); Lymphocyte # 1.28 X10^3/ul (0.83-4.51); Mean Corp Hgb Conc 31.3 g/dL (32-36); Mean Corpuscular Hgb 26.3 pg (27.0-32.0); Mean Corpuscular Volume 84.1 fL (80-94); Mean Platelet Vol. 9.4 fl (6.2-12.0); Monocyte% 9.7 % (0-10); NRBC Flagged by Analyzer 0 % (0-5); Neutrophil # 3.23 X10^3/uL (2.7-7.7); Neutrophil % 62.9 % (47-70); Platelet Count 412 K/mm3 (150-450); RBC Distribution Width CV 16.7 % (11.6-14.6); RBC Distribution Width SD 50.6 fl (35.1-43.9); Red Blood Count 3.27 M/mm3 (4.6-6.2); White Blood Count 5.1 K/mm3 (4.4-11.0)
[2023-03-18 11:33] LABS: ALB/GLOB Ratio 0.7 RATIO (0.9-2.4); AST(SGOT) 17 U/L (15-37); Alanine Aminotransfer ALT/SGPT 14 U/L (16-61); Albumin, Serum 2.9 g/dL (3.2-5.0); Alkaline Phosphatase 75 U/L (45-117); Anion Gap 10 (5-15); BUN 19 mg/dL (7-18); BUN/Creat Ratio 14.7 RATIO (10-20); Calcium,Total 9.1 mg/dL (8.5-10.1); Chloride 107 mmol/L (98-107); Creatinine, Serum 1.29 mg/dL (0.70-1.30); EST Glomerular Filtration Rate 56 mL/min (>60); Est Glom Filt Rate - Afr Amer 68 mL/min (>60); Globulin 4.1 g/dL (2.2-4.2); Glucose 88 mg/dL (74-106); Potassium 4.1 mmol/L (3.5-5.1); Sodium Level 139 mmol/L (136-145)
== END | disposition home or self-care (01) ==
LOC: MTLAB 08:28
PROVIDERS: PCP Internal Medicine; Referring Provider Internal Medicine; Visit Provider Internal Medicine
DX: I10 Essential (primary) hypertension (principal)
CPT/HCPCS: 36415; 80053; 85025

== ENCOUNTER → 2023-04-29 | Outpatient (CLI) | payer MEDICARE, SELFPAY ==
[2023-04-29 12:42] LABS: Absolute Lymphocyte Count 1.25 X10^3/uL (0.83-4.51); Absolute Neutrophil Count 2.9 X10^3/uL (2.0-7.7); Basophil# 0.04 X10^3/uL; Basophil% 0.9 % (0-1); Eosinophils% 2.1 % (0-5); Hematocrit 30.7 % (40-54); Hemoglobin 9.5 g/dL (13.0-16.5); Lymphocyte # 1.25 X10^3/ul (0.83-4.51); Lymphocyte % 26.6 % (19-41); Mean Corp Hgb Conc 30.9 g/dL (32-36); Mean Corpuscular Hgb 27.1 pg (27.0-32.0); Mean Corpuscular Volume 87.5 fL (80-94); Mean Platelet Vol. 10.9 fl (6.2-12.0); Monocyte# 0.43 X10^3/uL; Monocyte% 9.1 % (0-10); NRBC Flagged by Analyzer 0 % (0-5); Neutrophil # 2.86 X10^3/uL (2.7-7.7); Neutrophil % 60.9 % (47-70); Platelet Count 218 K/mm3 (150-450); RBC Distribution Width CV 17.7 % (11.6-14.6); RBC Distribution Width SD 56.6 fl (35.1-43.9); Red Blood Count 3.51 M/mm3 (4.6-6.2); White Blood Count 4.7 K/mm3 (4.4-11.0)
[2023-04-29 12:56] LABS: ALB/GLOB Ratio 0.9 RATIO (0.9-2.4); AST(SGOT) 19 U/L (15-37); Alanine Aminotransfer ALT/SGPT 17 U/L (16-61); Albumin, Serum 3.4 g/dL (3.2-5.0); Alkaline Phosphatase 55 U/L (45-117); Anion Gap 7 (5-15); BUN 27 mg/dL (7-18); BUN/Creat Ratio 20.8 RATIO (10-20); Bilirubin, Direct 0.12 mg/dL (0.00-0.30); Calcium,Total 9.2 mg/dL (8.5-10.1); Chloride 108 mmol/L (98-107); Cholesterol 122 mg/dL (200); EST Glomerular Filtration Rate 55 mL/min (>60); Est Glom Filt Rate - Afr Amer 67 mL/min (>60); Globulin 3.6 g/dL (2.2-4.2); Glucose 95 mg/dL (74-106); High Density Lipoprotein 55 mg/dL; Potassium 4.1 mmol/L (3.5-5.1); Sodium Level 140 mmol/L (136-145); Triglycerides 64 mg/dL; Very Low Density Lipoprotein 13 mg/dL (5-40)
== END | disposition home or self-care (01) ==
PROVIDERS: PCP Internal Medicine; Referring Provider Internal Medicine Rheumatology; Visit Provider Internal Medicine Rheumatology
DX: M06.4 Inflammatory polyarthropathy (principal); Z79.899 Other long term (current) drug therapy
CPT/HCPCS: 36415; 80053; 80061; 82248; 85025

== ENCOUNTER → 2023-06-05 | Outpatient (CLI) | payer MEDICARE, SELFPAY ==
--- NOTE | 2023-06-05 09:27 | ECHOD_ITS ---
Reason For Study: Murmur Procedure This was a 2D Doppler, Color Flow transthoracic echocardiogram. Exam performed in department. Left Ventricle Normal LV size. Left ventricular systolic function is normal. The left ventricular ejection fraction is 60 %. Stage 2 diastolic dysfunction. No regional wall motion abnormalities noted. Right Ventricle Normal RV size. Normal systolic function. Atria The left atrium is mildly enlarged. Probable chiari network. The right atrium is mildly enlarged. Mitral Valve There is Mild focal posterior mitral annular calcification. Mild (1+) eccentric mitral valve insufficiency. Tricuspid Valve Normal tricuspid valve. Mild (1+) tricuspid valve insufficiency. Pulmonary artery systolic pressure is 42 mmHg. Aortic Valve Trisinus/trileaflet aortic valve. Moderate focal aortic valve calcification. Peak aortic valve gradient 93 mmHg. Mean aortic valve gradient 60 mmHg. Severe aortic stenosis. Pulmonic Valve Normal pulmonic valve. Trivial pulmonic valve insufficiency. Great Vessels Calcified aortic root. The pulmonary artery is normal size. Normal inferior vena cava. Pericardium/Pleural No pericardial effusion. MMode/2D Measurements & Calculations LVIDd: 3.7 cm IVSd: 1.0 cm LVOT diam: 2.3 cm LVIDs: 2.2 cm LVPWd: 1.3 cm LVOT area: 4.2 cm2 RVDd: 4.3 cm FS: 41.8 % Ao root diam: 3.5 cm LAV(MOD-bp): 66.1 ml LVAd ap4: 28.0 cm2 ACS: 1.1 cm LAV(MOD-bp) Indexed: 36.8 ml/m2 LVLd ap4: 8.2 cm LAV(MOD-sp2): 68.3 ml EDV(MOD-sp4): 76.7 ml LAV(MOD-sp4): 61.0 ml EDV(sp4-el): 80.9 ml LVAs ap4: 16.5 cm2 LVLs ap4: 7.3 cm ESV(MOD-sp4): 32.3 ml ESV(sp4-el): 31.5 ml EF(MOD-sp4): 57.9 % EF(sp4-el): 61.1 % SV(MOD-sp4): 44.4 ml SV(sp4-el): 49.4 ml LA A4 area: 22.1 cm2 LA dimension(2D): 4.7 cm RA A4 area: 23.8 cm2 TAPSE: 2.0 cm Time Measurements MV dec time: 0.23 sec Doppler Measurements & Calculations MV E max marc: 92.2 cm/sec Lat Peak E' Marc: 9.9 cm/sec Med Peak E' Marc: 5.4 cm/sec MV A max marc: 76.7 cm/sec E/E' lat: 9.4 E/E' med: 17.1 MV E/A: 1.2 MV V2 max: 110.5 cm/sec Ao V2 max: 482.8 cm/sec MV max P.9 mmHg MV dec slope: 395.6 cm/sec2 Ao max P.3 mmHg MV V2 mean: 70.9 cm/sec Ao V2 mean: 372.4 cm/sec MV mean P.2 mmHg Ao mean P.0 mmHg MV V2 VTI: 33.7 cm Ao V2 VTI: 128.8 cm AV (velocity ratio): 0.23 MVA(VTI): 3.7 cm2 ROCIO(I,D): 0.97 cm2 ROCIO(V,D): 0.96 cm2 LV V1 max: 109.5 cm/sec SV(LVOT): 125.3 ml PA V2 max: 92.9 cm/sec LV V1 max P.8 mmHg LV V1 mean P.1 mmHg LV V1 mean: 84.5 cm/sec LV V1 VTI: 29.7 cm PI end-d marc: 132.8 cm/sec TR max marc: 309.4 cm/sec TR max P.3 mmHg ECHO/Echo Complete Interpretation Summary Normal LV size. Left ventricular systolic function is normal. The left ventricular ejection fraction is 60 %. Stage 2 diastolic dysfunction. Moderate focal aortic valve calcification. Mean aortic valve gradient 60 mmHg. Severe aortic stenosis. Compared to the previous echocardiogram the aortic valve area is significantly narrowed. Ordering Physician: João Victoria Referring Physician: Ximena Haines Performed By: Yuridia Smalls RDCS, RVT
== END | disposition home or self-care (01) ==
PROVIDERS: PCP Internal Medicine; Referring Provider Internal Medicine Cardiovascular Disease; Visit Provider Internal Medicine Cardiovascular Disease
DX: I35.0 Nonrheumatic aortic (valve) stenosis (principal)
CPT/HCPCS: 93306

== ENCOUNTER → 2023-07-06 | Outpatient (CLI) | payer MEDICARE, SELFPAY ==
[2023-07-06 10:08] LABS: Absolute Neutrophil Count 5.5 X10^3/uL (2.0-7.7); Basophil# 0.05 X10^3/uL; Basophil% 0.6 % (0-1); Eosinophils% 2.5 % (0-5); Hematocrit 30.7 % (40-54); Hemoglobin 9.8 g/dL (13.0-16.5); Lymphocyte % 17.3 % (19-41); Mean Corp Hgb Conc 31.9 g/dL (32-36); Mean Corpuscular Hgb 27.8 pg (27.0-32.0); Mean Platelet Vol. 10.8 fl (6.2-12.0); Monocyte# 0.96 X10^3/uL; Monocyte% 11.9 % (0-10); NRBC Flagged by Analyzer 0 % (0-5); Neutrophil # 5.46 X10^3/uL (2.7-7.7); Neutrophil % 67.3 % (47-70); Platelet Count 226 K/mm3 (150-450); RBC Distribution Width CV 15.2 % (11.6-14.6); RBC Distribution Width SD 48.3 fl (35.1-43.9); Red Blood Count 3.53 M/mm3 (4.6-6.2); White Blood Count 8.1 K/mm3 (4.4-11.0)
[2023-07-06 10:49] LABS: Anion Gap 9 (5-15); BUN 31 mg/dL (7-18); BUN/Creat Ratio 27.7 RATIO (10-20); Calcium,Total 9.3 mg/dL (8.5-10.1); Chloride 103 mmol/L (98-107); Creatinine, Serum 1.12 mg/dL (0.70-1.30); EST Glomerular Filtration Rate 66 mL/min (>60); Est Glom Filt Rate - Afr Amer 80 mL/min (>60); Glucose 98 mg/dL (74-106); Potassium 4.3 mmol/L (3.5-5.1); Sodium Level 137 mmol/L (136-145)
== END | disposition home or self-care (01) ==
PROVIDERS: Nurse Practitioner Family; PCP Internal Medicine; Referring Provider Internal Medicine Cardiovascular Disease; Visit Provider Internal Medicine Cardiovascular Disease
DX: I10 Essential (primary) hypertension (principal); I61.9 Nontraumatic intracerebral hemorrhage, unspecified; E78.5 Hyperlipidemia, unspecified; I35.0 Nonrheumatic aortic (valve) stenosis; Z95.5 Presence of coronary angioplasty implant and graft
CPT/HCPCS: 36415; 80048; 85025

== ENCOUNTER 2023-07-15 06:45 | Day surgery (SDC) | payer MEDICARE, SELFPAY ==
[2023-07-14 10:56] VITALS: BMI 25.7
--- NOTE | 2023-07-20 09:07 | CL.D_ITS ---
Patient Name: DELROY TIPTON Study Date: 07/15/2023 Performing: João Victoria MD Ht: 66 inches 167.64 cm : 1935 Wt: 156.99 lbs 71.21 kg Age: 88 Gender: male BSA: 1.8 PROCEDURE(S) PERFORMED [id number])LHC/COR/LV CLINICAL PROFILE AND INDICATIONS Indications: Valvular Disease Heart Failure: None Stress/Imaging Stress/Image Study Performed: No CAD Presentations: No Sxs, no angina. CONCLUSIONS Moderate coronary artery disease with previously placed stent in the left anterior descending artery patent. Severe aortic valve stenosis with mean gradient of 60 mmHg. RECOMMENDATIONS Recommend evaluation for TAVR. DESCRIPTION OF PROCEDURE The patient arrived to the procedure lab. The risks and benefits of the procedure as well as a full description of our services here and current unavailability of surgical backup were fully explained to the patient and/or their significant other prior to the catheterization. The Timeout was completed, verifying the correct patient and procedure. The patient's procedural site was prepped and draped in the usual fashion. Local anesthetic was given subcutaneously to right radial region with Nesacaine 2%. Using a modified Seldinger technique, arterial access was obtained via the right radial artery, a 6Fr sheath was inserted. Left Coronary Artery selective angiography was performed in multiple views using a 5 Fr. 4.0 [place] catheter. Right Coronary Artery selective angiography was then performed in multiple views using a 5 Fr. 4.0 [place] catheter. Left Ventriculography was performed in [place] projection using a 5 Fr. [place] catheter. LV to AO pullback pressures were then recorded.The arterial sheath was pulled and a TR Band was applied for hemostasis 10 of air CORONARY ANGIOGRAPHY DOMINANCE: Right Dominant LEFT HEART ASSESSMENT Left Ventricular Ejection Fraction: by LV Gram 70 % Normal LV wall motion Normal Left Ventricular systolic function LEFT MAIN: Mild calcification, Mild luminal irregularities less than 30% LEFT ANTERIOR DESCENDING ARTERY: Proximal LAD with 50% stenosis and a previously placed stent in the midsegment with 30% in-stent stenosis. Diffuse distal LAD disease. First second and third diagonals are small vessels with diffuse disease. CIRCUMFLEX ARTERY: Nondominant left circumflex artery with mild diffuse disease RAMUS: Mild luminal irregularities less than 30% RIGHT CORONARY ARTERY: Dominant right coronary artery with 50% mid right coronary stenosis and diffuse disease noted in the posterolateral and posterior descending artery branches. VALVE FINDINGS: Aortic Valve Calcification - severe Aortic Valve Stenosis - severe COMPLICATIONS No Complications PROCEDURE MEDICATIONS Fentanyl 25 mcg IV Versed 0.5 mg IV Fentanyl 25 mcg IV Versed 0.5 mg IV Oxygen: 2 L/min via nasal cannula Aspirin (325mg) 1 Tabs PO @ 07/15/2023 07:22:00 Heparin diluted in 23cc Heparinized saline. Patient given 10cc IA of this solution. 07/15/2023 08:16:06 Plavix 75 mg PO 07/15/2023 07:22:05 Verapamil 2.5mg, 2000 units of Heparin diluted in 23cc Heparinized saline. Patient given 10cc IA of this solution. 07/15/2023 08:16:06 SUMMARY OF HEMODYNAMIC DATA Time AIR REST ECG 07:21:45 ECG 07:49:59 AO 120/59 (83) SA 08:17:37 LV 180/8, 22 08:25:19 LV 175/11, 18 08:25:34 LV 173/10, 18 08:26:07 LV 171/12, 19 08:26:15 AIR REST 10:14:48 Signed By João Victoria MD On 07/20/2023 09:06:13 João Victoria MD
== END 2023-07-15 10:15 | disposition home or self-care (01) ==
PROVIDERS: PCP Internal Medicine; Referring Provider Internal Medicine Cardiovascular Disease; Visit Provider Internal Medicine Cardiovascular Disease
DX: I25.810 Atherosclerosis of coronary artery bypass graft(s) without angina pectoris (principal); I35.0 Nonrheumatic aortic (valve) stenosis; Z95.5 Presence of coronary angioplasty implant and graft; I25.10 Atherosclerotic heart disease of native coronary artery without angina pectoris; I10 Essential (primary) hypertension; E78.5 Hyperlipidemia, unspecified; Z79.899 Other long term (current) drug therapy; Z79.890 Hormone replacement therapy; E03.9 Hypothyroidism, unspecified; F17.220 Nicotine dependence, chewing tobacco, uncomplicated; I65.22 Occlusion and stenosis of left carotid artery
CPT/HCPCS: 93458; 99152; 99153; J7040; Q9967; C1769; C1894

== ENCOUNTER 2023-07-23 16:26 | Observation (INO) | payer MEDICARE, SELFPAY ==
[2023-07-23] VITALS (16 sets, daily range): BP systolic 105–141; BP diastolic 49–82; PULSE 66–75; RESP 14–20; TEMP 35.8–36.8; O2SAT 94–100; BMI 26.6; BMI 25.7
--- NOTE | 2023-07-23 16:44 | RAD_ITS ---
INDICATION: weakness EXAMINATION/TECHNIQUE: X-RAY - XR Chest 1 View COMPARISON: None. FINDINGS: Streaky opacities in the left lung base. Tortuous and calcified thoracic aorta. The heart is borderline enlarged. No pleural effusion or pneumothorax. Degenerative changes of the thoracic spine. RAD/Chest 1 View (Portable) IMPRESSION: Streaky opacities in the left lung base represent atelectasis versus infection. Electronically Signed: Berto Barksdale MD at 17:29 EDT ,
--- NOTE | 2023-07-23 16:46 | EKG12_ITS ---
Test Reason : WEAKNESS Blood Pressure : / mmHG Vent. Rate : 070 BPM Atrial Rate : 070 BPM P-R Int : 378 ms QRS Dur : 096 ms QT Int : 424 ms P-R-T Axes : 081 014 020 degrees QTc Int : 457 ms Sinus rhythm with 1st degree A-V block Otherwise normal ECG Confirmed by Fabian Mix ([id number]), brands editor RODOLFO CRANE ([id number]) on 07/27/2023 10:21:42 AM Referred By: Confirmed By:Fabian Mix
--- NOTE | 2023-07-23 16:49 | EX.ED.DYSGE1 ---
HPI <VICKI Wall - Last Filed: 07/23/23 18:37> History of Present Illness Chief Complaint: Weakness Narrative Narrative: ED old male with past medical history of HTN, HLD, CVA, CAD with stent, aortic stenosis states he had a heart catheterization on 07/15/2023 as part of the workup to have his aortic valve replaced and ever since then he gets episodes where both legs feel weak. He uses a walker. Occasionally after taking a few steps his legs will feel so weak that he either needs assistance or has to stop walking. He is not lightheaded or syncopal. No falls. Today after he got out of the car there was about 20 feet to get into the house and the leg weakness occurred again and his had to assist him inside. He had back surgery with Dr. Lal 2 years ago and states he has chronic low back discomfort but has not had an increase in pain. He has no pain radiating down the legs and no numbness or tingling. No falls. He has no upper extremity symptoms and states he is the 0 turn mower for hours the other day without an issue. He denies recent chest pain or shortness of breath. 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 Bacteremia due to Staphylococcus Atherosclerotic heart disease of [place] coronary artery without angina pectoris Hemorrhagic cerebrovascular accident (CVA) (10/2015) Erectile dysfunction Carotid bruit Non-rheumatic aortic stenosis Anemia Obstructive sleep apnea Essential (primary) hypertension Renal artery stenosis DDD (degenerative disc disease) Osteoporosis Obesity Neoplasm of skin Hypothyroidism BPH (benign prostatic hyperplasia) Celiac disease Hyperlipidemia Home Medications ?Medication ?Instructions ?Recorded ?Last Taken ?Type finasteride 5 mg tablet (Proscar) 5 mg PO DAILY PROSTATE 09/21/13 07/23/23 History gabapentin 300 mg capsule 300 mg PO BID NERVE PAIN 09/21/13 07/23/23 History pravastatin 80 mg tablet 80 mg PO QHS CHOLESTROL 09/21/13 07/22/23 History L.acidoph, paracasei,B. lactis 10 2 ea PO BID SUPPLEMENT 10/25/15 07/23/23 History billion cell capsule cholecalciferol (vitamin D3) 125 5,000 unit PO QHS supplement 06/05/18 07/22/23 History mcg (5,000 unit) tablet cyanocobalamin (vitamin B-12) 1,000 mcg PO DAILY supplement 06/05/18 07/23/23 History 1,000 mcg tablet risedronate 150 mg tablet (Actonel) 150 mg PO QMONTH bone health 09/30/19 Unknown History acetaminophen 650 mg 325 mg PO TID pain 04/04/20 07/23/23 History tablet,extended release (Tylenol 8 Hour) metoprolol succinate 25 mg 25 mg PO DAILY blood pressure 04/04/20 07/23/23 History tablet,extended release 24 hr doxycycline hyclate 100 mg capsule 100 mg PO BID post stent placement 06/21/21 07/23/23 History polysaccharide iron complex 150 mg 150 mg PO BID supplement 06/21/21 07/23/23 History iron capsule hydroxychloroquine 200 mg tablet 200 mg PO BID 07/30/21 07/23/23 History (Plaquenil) tramadol 50 mg tablet 50 mg PO Q4H PRN Pain 07/30/21 07/23/23 History amlodipine 10 mg tablet 10 mg PO DAILY 02/21/22 07/23/23 History levothyroxine 100 mcg tablet 100 mcg PO DAILY 02/21/22 07/23/23 History clopidogrel 75 mg tablet (Plavix) 75 mg PO DAILY #90 tabs 12/10/22 07/23/23 Rx pantoprazole 40 mg tablet,delayed 40 mg PO DAILY 05/01/23 07/23/23 History release ramipril 10 mg capsule 10 mg PO DAILY 05/01/23 07/23/23 History tamsulosin 0.4 mg capsule 0.4 mg PO BID BLADDER 05/01/23 07/23/23 History folic acid 1 mg tablet 1 mg PO DAILY 07/23/23 07/23/23 History zinc acetate 50 mg (zinc) capsule 50 mg PO DAILY 07/23/23 07/23/23 History Allergy/AdvReac Type Severity Reaction Status Date / Time lidocaine Allergy Hives Verified 07/23/23 16:27 cephalexin (From Keflex) AdvReac confusion Verified 07/23/23 16:27 Family History Brother Myocardial infarction, Onset Age: 60 Brother Myocardial infarction, Onset Age: 65 Father Myocardial infarction, Onset Age: 60 Brother CVA (cerebral vascular accident) Son CVA (cerebral vascular accident) Surgical History H/O bilateral inguinal hernia repair Hx of total knee replacement Hx of knee surgery History of back surgery History of coronary artery stent placement (05/31/18) History of cataract surgery History of tonsillectomy and adenoidectomy Social History Smoking Status: Never smoker Smokeless tobacco user: chewing tobacco alcohol intake: never substance use type: does not use caffeine: Yes Type: carbonated beverages Number of servings: 1 ROS <VICKI Wall - Last Filed: 07/23/23 18:37> ROS ED ROS Narrative Constitutional: Negative for fever, chills. CVS: Positive for chest pain. No syncope. Respiratory: Negative for shortness of breath, cough. GI: Negative for abdominal pain, nausea, vomiting, diarrhea, melena, hematochezia. : Negative for dysuria. Neuro: Negative for headache, motor/sensory dysfunction. EXAM <VICKI Wall - Last Filed: 07/23/23 18:37> Physical Exam Narrative Exam Narrative: CONST: Patient sitting in no acute distress. EYES: Normal inspection. NECK: Normal inspection. RESP: No respiratory distress, CTAB. CVS: Regular rate and rhythm, no murmur, no gallop. ABD: Soft and nontender, no guarding or rebound, nondistended. FAN: Normal external inspection, dark stool, no evidence of gross blood. SKIN: Color normal, no rash, warm, dry, intact. EXTREMITIES: Normal appearance, no pedal edema. 5/5 bilateral hip flexion and DF/PF. Normal sensation. 2+ DP pulses. NEURO: Alert and answering questions appropriately. Hard of hearing. PSYCH: Normal affect. Const Vital Signs: 07/23/23 16:27 07/23/23 16:31 07/23/23 16:36 Temperature 96.5 F L 96.5 F L Temperature Source Temporal Temporal Pulse Rate 69 69 Respiratory Rate 18 18 Respiratory Effort Normal Non-Labored Blood Pressure 105/49 L 105/49 L Blood Pressure Mean 67 67 Pulse Ox 99 99 Oxygen Delivery Method Room Air Room Air 07/23/23 17:26 07/23/23 18:00 Temperature Temperature Source Pulse Rate 70 69 Respiratory Rate 18 18 Respiratory Effort Blood Pressure 134/80 H 137/74 H Blood Pressure Mean 98 93 Pulse Ox 94 99 Oxygen Delivery Method Room Air <Dr. Asael Rankin MD - Last Filed: 07/23/23 18:50> Physical Exam Const Vital Signs: 07/23/23 16:27 07/23/23 16:31 07/23/23 16:36 Temperature 96.5 F L 96.5 F L Temperature Source Temporal Temporal Pulse Rate 69 69 Respiratory Rate 18 18 Respiratory Effort Normal Non-Labored Blood Pressure 105/49 L 105/49 L Blood Pressure Mean 67 67 Pulse Ox 99 99 Oxygen Delivery Method Room Air Room Air 07/23/23 17:26 07/23/23 18:00 Temperature Temperature Source Pulse Rate 70 69 Respiratory Rate 18 18 Respiratory Effort Blood Pressure 134/80 H 137/74 H Blood Pressure Mean 98 93 Pulse Ox 94 99 Oxygen Delivery Method Room Air MDM <VICKI Wall - Last Filed: 07/23/23 18:37> [facility] Narrative Medical decision making narrative: History gathered from: Patient and spouse Differential: Anemia, electrolyte abnormality, cardiac etiology, aortic stenosis among others Patient presents with generalized weakness in both legs while walking over the last 2 weeks. He appears well and nontoxic. Vital signs stable. His exam is unremarkable. Lower extremity MSPs are intact. He has chronic back issues but denies increase in pain and has no radicular symptoms. Workup shows acute on chronic anemia with hemoglobin of 6.3 (9.82 weeks ago). He is on Plavix for cardiac stents. BUN 38, creatinine 1.26. He had not noticed black or bloody stools but on rectal exam stool is dark and Hemoccult positive. I suspect this is the source of his generalized weakness and ordered IV Protonix and 2 units PRBCs. Case was discussed with the hospitalist for admission. External records reviewed: Diagnostic cardiac catheterization 07/15/2023 Moderate CAD with previous placed stent in LAD patent. Severe aortic valve stenosis. Lab Data Attestation: I reviewed the patient's lab results. Labs: Laboratory Results - last 24 hr 07/23/23 07/23/23 17:03 17:22 WBC 6.2 RBC 2.18 L Hgb 6.3 L Hct 19.9 L MCV 91.3 MCH 28.9 MCHC 31.7 L RDW Std Deviation 53.1 H RDW Coeff of Juanis 17.2 H Plt Count 216 MPV 10.0 Immature Gran % (Auto) 0.500 Neut % (Auto) 76.1 H Lymph % (Auto) 15.[address] % (Auto) 7.1 Eos % (Auto) 0.6 Baso % (Auto) 0.5 Absolute Neuts (auto) 4.7 Absolute Lymphs (auto) 0.94 Nucleated RBC % 0 Sodium 136 Potassium 4.1 Chloride 105 Carbon Dioxide 22.0 Anion Gap 9 BUN 38 H Creatinine 1.26 Estim Creat Clear Calc 36.57 Est GFR (MDRD) Af Amer 69 Est GFR (MDRD) Non-Af 57 L BUN/Creatinine Ratio 30.2 H Glucose 110 H Calcium 8.6 Troponin I High Sens 47 Blood Type B POSITIVE Antibody Screen NEGATIVE Crossmatch See Detail Radiography Diagnostic Testing: Clinical Impression(s) from Imaging Studies Chest X-Ray 07/23/23 16:44 IMPRESSION: Streaky opacities in the left lung base represent atelectasis versus infection. Electronically Signed: Berto Barksdale MD at 17:29 EDT , ED attending interpretation of 1-view chest x-ray shows normal heart size, no evidence of large infiltrate or effusion. EKG Initial EKG: Attestation: I personally reviewed and interpreted this EKG as follows: Interpretation: Sinus Rhythm and No Acute Injury Pattern Comments: Normal sinus rhythm at 70 bpm with first-degree AV block No acute ischemic changes <Dr. Asael Rankin MD - Last Filed: 07/23/23 18:50> [facility] Lab Data Labs: Laboratory Results - last 24 hr 07/23/23 07/23/23 17:03 17:22 WBC 6.2 RBC 2.18 L Hgb 6.3 L Hct 19.9 L MCV 91.3 MCH 28.9 MCHC 31.7 L RDW Std Deviation 53.1 H RDW Coeff of Juanis 17.2 H Plt Count 216 MPV 10.0 Immature Gran % (Auto) 0.500 Neut % (Auto) 76.1 H Lymph % (Auto) 15.[address] % (Auto) 7.1 Eos % (Auto) 0.6 Baso % (Auto) 0.5 Absolute Neuts (auto) 4.7 Absolute Lymphs (auto) 0.94 Nucleated RBC % 0 Sodium 136 Potassium 4.1 Chloride 105 Carbon Dioxide 22.0 Anion Gap 9 BUN 38 H Creatinine 1.26 Estim Creat Clear Calc 36.57 Est GFR (MDRD) Af Amer 69 Est GFR (MDRD) Non-Af 57 L BUN/Creatinine Ratio 30.2 H Glucose 110 H Calcium 8.6 Troponin I High Sens 47 Blood Type B POSITIVE Antibody Screen NEGATIVE Crossmatch See Detail Radiography Diagnostic Testing: Clinical Impression(s) from Imaging Studies Chest X-Ray 07/23/23 16:44 IMPRESSION: Streaky opacities in the left lung base represent atelectasis versus infection. Electronically Signed: Berto Barksdale MD at 17:29 EDT , Management Discussion w/another healthcare provider: Hospitalist Treatment and Re-Evaluation Comments:: I have personally performed a face to face assessment of the patient and have reviewed the SEJAL Note. I performed a substantive portion of the visit including all aspects of the following. My jessica findings include: History is progressively worsening weakness, patient notices it more in his legs. He is very poor historian, saying that he has had some left-sided chest discomfort on occasion, for the past week and this is the first that his has heard about it, in addition to some type of sensation that he cannot describe they get better when he leans his head forward, but denies any dizziness or presyncope/syncope. Recent workup for aortic stenosis potential repair. Exam is NAD. Keenly alert. Normal neurologic exam, able move all 4 extremities without difficulty, with normal strength and symmetric. Abdomen soft nontender nondistended. Lungs clear, heart has a harsh systolic crescendo decrescendo murmur consistent with aortic stenosis at the [facility]. Medical Decison Making Labs noted. Chest x-ray 1 view on my interpretation negative for acute pneumonia. He is very anemic, so although he states he has had no bright red blood per rectum or melena, we did a Hemoccult and it is positive, likely source. He is on aspirin and clopidogrel no anticoagulants to reverse, he is clinically and hemodynamically stable does not require emergent platelet transfusion. Discussed with patient and family comfortable with transfusion discussed with hospitalist for admission. Other additions or changes: [None] <Dr. Asael Rankin MD - Last Filed: 07/23/23 18:50> Critical Care Time Critical Care Time: Yes Critical care time (excluding procedures): 30-74 minutes (33 min), Including time spent:, Discussing w/Patient &/or Family/Spiral Weaver, Discussing w/Consultants, Arranging Admission or Transfer and Performing Direct Patient Care at Bedside Discharge Plan Triage Chief Complaint: Weakness ED Midlevel Provider: Emily Hernandez ED Provider: Asael Rankin Dx/Rx/DC Orders Clinical Impression: Acute on chronic anemia, Generalized weakness, Transfusion of blood during current hospitalisation, Occult GI bleeding, ABLA (acute blood loss anemia) Prescriptions: No Action acetaminophen [Tylenol 8 Hour] 650 mg tablet extended release 325 mg PO TID risedronate [Actonel] 150 mg tablet 150 mg PO QMONTH Rx Instructions: OF EVERY MONTH levothyroxine 100 mcg tablet 100 mcg PO DAILY amlodipine 10 mg tablet 10 mg PO DAILY ramipril 10 mg capsule 10 mg PO DAILY pantoprazole 40 mg tablet,delayed release (DR/EC) 40 mg PO DAILY pravastatin 80 MG tablet 80 mg PO QHS gabapentin 300 MG capsule 300 mg PO BID finasteride [Proscar] 5 MG tablet 5 mg PO DAILY tamsulosin 0.4 mg capsule 0.4 mg PO BID L.acidoph, paracasei,B. lactis 1 EACH capsule 2 ea PO BID cyanocobalamin (vitamin B-12) 1,000 MCG tablet 1,000 mcg PO DAILY cholecalciferol (vitamin D3) 5,000 UNIT tablet 5,000 unit PO QHS polysaccharide iron complex 150 MG capsule 150 mg PO BID doxycycline hyclate 100 mg capsule 100 mg PO BID tramadol 50 mg Tablet 50 mg PO Q4H PRN (Reason: Pain) hydroxychloroquine [Plaquenil] 200 mg Tablet 200 mg PO BID folic acid 1 mg tablet 1 mg PO DAILY zinc acetate 50 mg (zinc) capsule 50 mg PO DAILY metoprolol succinate 25 mg tablet extended release 24 hr 25 mg PO DAILY clopidogrel [Plavix] 75 mg tablet 75 mg PO DAILY Qty: 90 3RF Primary Care Provider: Ximena Haines Referrals: Ximena Haines MD [Primary Care Provider] - Print Language: Kyrgyz Disposition Disposition: Acute Care Hospital [facility]
[2023-07-23 17:09] LABS: Absolute Lymphocyte Count 0.94 X10^3/uL (0.83-4.51); Absolute Neutrophil Count 4.7 X10^3/uL (2.0-7.7); Basophil# 0.03 X10^3/uL; Basophil% 0.5 % (0-1); Eosinophil# 0.04 X10^3/uL; Eosinophils% 0.6 % (0-5); Hematocrit 19.9 % (40-54); Hemoglobin 6.3 g/dL (13.0-16.5); Lymphocyte # 0.94 X10^3/ul (0.83-4.51); Lymphocyte % 15.2 % (19-41); Mean Corp Hgb Conc 31.7 g/dL (32-36); Mean Corpuscular Hgb 28.9 pg (27.0-32.0); Mean Corpuscular Volume 91.3 fL (80-94); Monocyte# 0.44 X10^3/uL; Monocyte% 7.1 % (0-10); NRBC Flagged by Analyzer 0 % (0-5); Neutrophil # 4.69 X10^3/uL (2.7-7.7); Neutrophil % 76.1 % (47-70); Platelet Count 216 K/mm3 (150-450); RBC Distribution Width CV 17.2 % (11.6-14.6); RBC Distribution Width SD 53.1 fl (35.1-43.9); Red Blood Count 2.18 M/mm3 (4.6-6.2); White Blood Count 6.2 K/mm3 (4.4-11.0)
[2023-07-23 17:28] LABS: Anion Gap 9 (5-15); BUN 38 mg/dL (7-18); BUN/Creat Ratio 30.2 RATIO (10-20); Calcium,Total 8.6 mg/dL (8.5-10.1); Chloride 105 mmol/L (98-107); Creatinine, Serum 1.26 mg/dL (0.70-1.30); EST Glomerular Filtration Rate 57 mL/min (>60); Est Glom Filt Rate - Afr Amer 69 mL/min (>60); Estimated Creatinine Clearance 36.57 ml/min; Glucose 110 mg/dL (74-106); Potassium 4.1 mmol/L (3.5-5.1); Sodium Level 136 mmol/L (136-145)
[2023-07-23 18:15] LABS: Troponin-I HS 47 pg/mL (3.0-78.0)
--- NOTE | 2023-07-23 18:33 | HP.PCM.HOS_ITS ---
HPI - General General Date of Admission: 07/23/23 Date of Service: 07/23/23 Chief Complaint: Fatigue, malaise, weakness, worsening. HPI Narrative The patient is an 88 y/o M w/ PMHx: Rheumatoid arthritis, CKD stage III unclear subtype, Carotid disease, Hx C-diff colitis, Hx Hemorrhagic CVA, Chew tobacco use, HTN, HLD, Renal artery stenosis, SACHIN noncompliant with PAP therapy, Chronic anemia, Hypothyroidism, Celiac disease, BPH, CAD s/p PCI, Valvular Heart Disease who presents to the [facility] ED on 07/23/23 with history of increasing weakness and fatigue since recent cardiac catheterization 07/15/2023 with decreased oral intake with BP on a.m. on day of presentation noted to be 82/52 prompting eventual ED evaluation. He notes difficulty even ambulating secondary to weakness and quick fatigue. He had not noticed any stool changes but has not been looking. He denies any chest pain or dyspnea. Recent cardiac catheterization 07/15/2023 with noted moderate coronary artery disease with previously placed stent in the left anterior descending artery patent, severe aortic valve stenosis with mean gradient 60 mmHg with recommendation for evaluation for TAVR. Workup in the ED included T96.5, heart rate 69, BP 105/49, respiratory rate 18, 99% on room air with most recent repeat vital signs heart rate 69, BP 137/74, respiratory rate 18, 99% on room air, CBC with WBC 6.2, hemoglobin 6.3, MCV 91.3, platelet 260 without marked shift, BMP with BUN/1 and 38/1.26, GFR 57, glucose 110, troponin 47, chest x-ray with streaky opacities left lung base possibly atelectasis versus infection, occult stool positive, urinalysis pending upon request evaluation of patient, patient typed and crossed for 2 unit PRBC per ED. Discussed with ED staff and patient will also be administered Protonix. [facility], [facility] Medical History (Updated 07/23/23 @ 19:[address] 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 Bacteremia due to Staphylococcus Atherosclerotic heart disease of [place] coronary artery without angina pectoris Hemorrhagic cerebrovascular accident (CVA) (10/2015) Erectile dysfunction Carotid bruit Non-rheumatic aortic stenosis Anemia Obstructive sleep apnea Essential (primary) hypertension Renal artery stenosis DDD (degenerative disc disease) Osteoporosis Obesity Neoplasm of skin Hypothyroidism BPH (benign prostatic hyperplasia) Celiac disease Hyperlipidemia Home Medications ?Medication ?Instructions ?Recorded ?Last Taken ?Type finasteride 5 mg tablet (Proscar) 5 mg PO DAILY PROSTATE 09/21/13 07/23/23 History gabapentin 300 mg capsule 300 mg PO BID NERVE PAIN 09/21/13 07/23/23 History pravastatin 80 mg tablet 80 mg PO QHS CHOLESTROL 09/21/13 07/22/23 History L.acidoph, paracasei,B. lactis 10 2 ea PO BID SUPPLEMENT 10/25/15 07/23/23 History billion cell capsule cholecalciferol (vitamin D3) 125 5,000 unit PO QHS supplement 06/05/18 07/22/23 History mcg (5,000 unit) tablet cyanocobalamin (vitamin B-12) 1,000 mcg PO DAILY supplement 06/05/18 07/23/23 History 1,000 mcg tablet risedronate 150 mg tablet (Actonel) 150 mg PO QMONTH bone health 09/30/19 Unknown History acetaminophen 650 mg 325 mg PO TID pain 04/04/20 07/23/23 History tablet,extended release (Tylenol 8 Hour) metoprolol succinate 25 mg 25 mg PO DAILY blood pressure 04/04/20 07/23/23 History tablet,extended release 24 hr doxycycline hyclate 100 mg capsule 100 mg PO BID post stent placement 06/21/21 07/23/23 History polysaccharide iron complex 150 mg 150 mg PO BID supplement 06/21/21 07/23/23 History iron capsule hydroxychloroquine 200 mg tablet 200 mg PO BID 07/30/21 07/23/23 History (Plaquenil) tramadol 50 mg tablet 50 mg PO Q4H PRN Pain 07/30/21 07/23/23 History amlodipine 10 mg tablet 10 mg PO DAILY 02/21/22 07/23/23 History levothyroxine 100 mcg tablet 100 mcg PO DAILY 02/21/22 07/23/23 History clopidogrel 75 mg tablet (Plavix) 75 mg PO DAILY #90 tabs 12/10/22 07/23/23 Rx pantoprazole 40 mg tablet,delayed 40 mg PO DAILY 05/01/23 07/23/23 History release ramipril 10 mg capsule 10 mg PO DAILY 05/01/23 07/23/23 History tamsulosin 0.4 mg capsule 0.4 mg PO BID BLADDER 05/01/23 07/23/23 History folic acid 1 mg tablet 1 mg PO DAILY 07/23/23 07/23/23 History zinc acetate 50 mg (zinc) capsule 50 mg PO DAILY 07/23/23 07/23/23 History Allergy/AdvReac Type Severity Reaction Status Date / Time lidocaine Allergy Hives Verified 07/23/23 16:27 cephalexin (From Keflex) AdvReac confusion Verified 07/23/23 16:27 Family History Brother Myocardial infarction, Onset Age: 60 Brother Myocardial infarction, Onset Age: 65 Father Myocardial infarction, Onset Age: 60 Brother CVA (cerebral vascular accident) Son CVA (cerebral vascular accident) Surgical History H/O bilateral inguinal hernia repair Hx of total knee replacement Hx of knee surgery History of back surgery History of coronary artery stent placement (05/31/18) History of cataract surgery History of tonsillectomy and adenoidectomy Social History Smoking Status: Never smoker Smokeless tobacco user: chewing tobacco alcohol intake: never substance use type: does not use caffeine: Yes Type: carbonated beverages Number of servings: 1 ROS ROS Narrative Admission Review of Systems: CONSTITUTIONAL: No weight loss, fever, chills, + weakness or fatigue. HEENT: Eyes: No visual loss, blurred vision, double vision or yellow sclerae. Ears, Nose, Throat: No hearing loss, sneezing, congestion, runny nose or sore throat. SKIN: No rash or itching, lesions, wounds except occasional staged ecchymoses, abrasions. CARDIOVASCULAR: No chest pain, chest pressure or chest discomfort, palpitations, edema, orthopnea, syncopal events. RESPIRATORY: + Chronic dyspnea with exertion but denies any worsening of the symptoms on acute presentation now. No marked cough or sputum production, wheezing, hemoptysis. GASTROINTESTINAL: In the ED upon guaiac being obtained stool noted to be darker in appearance but not specifically melanotic. + No anorexia, nausea, vomiting or diarrhea, abdominal pain, melena, BRBPR. GENITOURINARY: No dysuria, frequency, urgency or retention. NEUROLOGICAL: No headache, dizziness, syncope, paralysis, ataxia, numbness or tingling in the extremities, focal weakness, change in bowel or bladder control, seizure. MUSCULOSKELETAL: + muscle, back pain, joint pain or stiffness. HEMATOLOGIC: + Chronic anemia, active GI bleeding is noted, easy bruising. LYMPHATICS: No enlarged nodes. No history of splenectomy. PSYCHIATRIC: No history of depression or anxiety. ENDOCRINOLOGIC: No reports of sweating, cold or heat intolerance. No polyuria or polydipsia. ALLERGIES: + History of hives. Vital Signs Vital Signs Vital Signs: 07/23/23 16:27 07/23/23 16:31 07/23/23 16:36 Temperature 96.5 F L 96.5 F L Temperature Source Temporal Temporal Pulse Rate 69 69 Respiratory Rate 18 18 Respiratory Effort Normal Non-Labored Blood Pressure 105/49 L 105/49 L Blood Pressure Mean 67 67 Pulse Ox 99 99 Oxygen Delivery Method Room Air Room Air 07/23/23 17:26 07/23/23 18:00 Temperature Temperature Source Pulse Rate 70 69 Respiratory Rate 18 18 Respiratory Effort Blood Pressure 134/80 H 137/74 H Blood Pressure Mean 98 93 Pulse Ox 94 99 Oxygen Delivery Method Room Air Weight Weight: 164 lb 10.965 oz Body Mass Index (BMI) 26.6 Physical Exam Narrative Physical Examination: General: Awake, alert, oriented x 3 and cooperative, seated upright in the ED bed, fatigued, hard of hearing. Skin: Pale color, normal turgor, no icterus, no cyanosis, occasional staged ecchymoses, abrasion. HEENT: AT/NC, EOMI, PERRLA, mildly dry MM, no carotid bruits or JVD noted. Lungs: Diminished, greater bases, appropriate effort, no evidence of any distress, no rales, ronchi or wheezing. Heart: Regular rate and rhythm; no gallop, rub audible, + SM. Abdomen: Soft, NTTP, ND, hyperactive BS, no appreciated HSM. Extremities: No cyanosis, no clubbing, bilateral ankle nonpitting edema. Neurological: Patient awake, alert, oriented as noted, hard of hearing, cognitive function intact; pupils equally reactive to light and accommodation, cranial nerves grossly normal, moving all 4 extremities, no focal deficits, strength moderately to severely globally decreased secondary to acute presentation. Psychiatric: Affect appears fatigued otherwise normal, no acute evidence of depressive or anxiety feelings. Results Lab / Micro Data 07/23/23 17:03 07/23/23 17:03 Labs: Laboratory Results - last 24 hr 07/23/23 17:03: WBC 6.2, RBC 2.18 L, Hgb 6.3 L, Hct 19.9 L, MCV 91.3, MCH 28.9, MCHC 31.7 L, RDW Std Deviation 53.1 H, RDW Coeff of Juanis 17.2 H, Plt Count 216, MPV 10.0, Immature Gran % (Auto) 0.500, Neut % (Auto) 76.1 H, Lymph % (Auto) 15.2 L, [place] % (Auto) 7.1, Eos % (Auto) 0.6, Baso % (Auto) 0.5, Absolute Neuts (auto) 4.7, Absolute Lymphs (auto) 0.94, Nucleated RBC % 0, Sodium 136, Potassium 4.1, Chloride 105, Carbon Dioxide 22.0, Anion Gap 9, BUN 38 H, Creatinine 1.26, Estim Creat Clear Calc 36.57, Est GFR (MDRD) Af Amer 69, Est GFR (MDRD) Non-Af 57 L, BUN/Creatinine Ratio 30.2 H, Glucose 110 H, Calcium 8.6, Troponin I High Sens 47 07/23/23 17:22: Blood Type B POSITIVE, Antibody Screen NEGATIVE, Crossmatch See Detail Micro: Microbiology 07/23/23 17:15 Stool Stool Occult Blood (GLYNN) - Final Occult Blood Positive Imaging Radiology Impression Chest X-Ray 07/23/23 16:44 IMPRESSION: Streaky opacities in the left lung base represent atelectasis versus infection. Electronically Signed: Berto Barksdale MD at 17:29 EDT , Assessment & Plan Assessment/Plan (1) Acute on chronic anemia: PLAN: Plan The patient is an 88 y/o M w/ PMHx: CKD stage III unclear subtype, Carotid disease, Hx C-diff colitis, Hx Hemorrhagic CVA, Chew tobacco use, HTN, HLD, Renal artery stenosis, SACHIN, Chronic anemia, Hypothyroidism, Celiac disease, BPH, CAD s/p PCI, Valvular Heart Disease who presents to the [facility] ED on 07/23/23 with history of increasing weakness and fatigue since recent cardiac catheterization 07/15/2023 with decreased oral intake with BP on a.m. on day of presentation noted to be 82/52 prompting eventual ED evaluation. #1. Significant fatigue, weakness, malaise with adult failure to thrive likely multifactorial secondary to Acute GI Bleed w/ resultant Acute Blood Loss Anemia on Chronic anemia/iron deficiency anemia and likely component #2 and additional noted possible LLL streak opacity, possible atelectasis versus developing PNA: Admission Hgb 6.3, MCV 91.3 with most recently noted hemoglobin 07/06/2023 9.8 which appears to have been baseline which is normally 8-9, will admit to [facility] telemetry given improved stable VS in the ED, will continue planned PRBC administration of 2 unit per ED, will continue to obtain serial H+H, will maintain on IV PPI, allow clears until midnight with n.p.o. status following, judicious fluids, GI consulted and evaluation pending. Lower suspicion for pneumonia however to be cautious will obtain sputum culture, urine antigen, full viral panel and procalcitonin as well as repeat chest x-ray in a.m. and if any concerns arise that this is the case low threshold to initiate antibiotic therapy however in the interim we will continue patient doxycycline which was initiated per cardiology post stent. PT/OT/case management consultation for discharge planning. #2. Valvular Heart Disease: 06/05/2023 echocardiogram with normal LV size, normal LV systolic function, LVEF 60%, stage II diastolic dysfunction, moderate focal AV calcification, severe aortic stenosis, mean aortic valve gradient 60 mmHg. As noted recent cardiac catheterization with recommendation for TAVR. #3. Renal artery stenosis: Most recent imaging noted 02/07/2022 with a renal artery duplex with less than 60% stenosis bilateral renal arteries, maintained right renal length 9.72 cm, anechoic structure right kidney measuring 1.18 x 1.16 cm consistent with cyst, borderline left renal length 8.2 cm with no change since prior evaluation 2018 other than decreased renal length from previous 9 cm on the left. Temporally holding Plavix given #1, continue hypertensive regimen and statin therapy. #4. CAD: Noted PCI 05/31/2018 with stent to the left anterior descending artery, continue statin, metoprolol, ramipril home regimen. 07/15/2023 cardiac catheterization with noted moderate coronary artery disease with previously placed stent in the left anterior descending artery patent, severe aortic valve stenosis with mean gradient 60 mmHg with recommendation for evaluation for TAVR. Given concern for bleeding as noted will temporarily hold Plavix. #5. Chronic Kidney Disease Stage III, unclear subtype per GFR trend: Admission BUN/Cr 38/1.26, GFR 57, baseline renal function primarily 1.1-1.3, repeat BMP in AM. #6. Carotid disease: Will continue patient statin, hypertensive regimen is noted, no diabetic history per chart report. Given concern for bleeding as noted will temporarily hold Plavix. #7. Chronic back pain with radiculopathy: Status post surgical intervention on the back, difficulty with mobility with balance per reports in chart, continue patient chronic gabapentin regimen, maintain on fall precautions, PT/OT/case management consulted for discharge planning. #8. Hypertension: Continue home regimen including ramipril, metoprolol, amlodipine with hold parameters in place given reported initial low BP outpatient, PRN hydralazine. #9. History hemorrhagic CVA: Resolved, given current presentation as noted will temporally hold Plavix, continued on hypertensive regimen with hold parameters as needed. #10. Rheumatoid arthritis: Will continue patient home Plaquenil regimen, encourage continued outpatient follow-up with rheumatology as previously arranged. #11. Hypothyroidism: We will continue patient home levothyroxine regimen. #12. BPH: We will continue patient home Flomax and Proscar regimen. #13. Celiac disease: Given presentation at this time will allow clears until midnight with n.p.o. status following, once appropriate need to assure order modified diet and encourage continue outpatient follow-up with PCP as previously arranged or GI is following with GI. #14. Chew tobacco: Strongly encourage chew tobacco cessation, nicotine replacement offered and declined. Patient says he uses leaf whole and constantly has something in his mouth. He was educated that that was not allowed while in the hospital. 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 #16. GERD: Given #1 as noted will maintain on IV PPI. #17. DVT prophylaxis: SCDs. #18. CODE status: Patient SCOTTIE is his who is present and living will is currently in place. Discussed CODE status at length including difference between FULL code, DNR-CCA and DNR-CC status. Following discussions about the differences in these status, requested eventually Full Code status. Patient prognosis if her cardiopulmonary event were to occur and CPR was initiated was discussed very honestly and at length and at some point him and his deferred as far as his potentially thinking less aggressive measures but patient eventually decided to maintain full code status. Advanced Care Planning Face to Face Time: 16 minutes. Charges/Coding Visit Charges Inpatient E&M: 80878 Init Hosp L3 Procedures Hospitalists Procedures: 74244 Advncd Care Plan 30 Min
[2023-07-23] MEDS: Pantoprazole Sodium 40 MG in 0.9% Normal Saline (100mL MB+) 100 ML 330 MG IV (18:56)
[2023-07-23 19:16] LABS: Procalcitonin 0.08 ng/mL (0.00-0.09)
[2023-07-23 19:37] LABS: Bacteria 0 SEEN /hpf (None Seen); Mucous, Urine 0 SEEN /hpf (<or=2+); Red Blood Cells-Urine 0 SEEN /hpf (0-5); Squamous Epithelial Cells - UA 0 SEEN /hpf (0-5); White Blood Cells 0 SEEN /hpf (0-5)
[2023-07-23 19:39] LABS: Color, Urine Yellow (Yellow); Glucose, Dipstick Normal (Normal); Ketone-Dipstick Negative (Negative); Leukocyte Esterase-Dipstick Negative /ul (Negative); Nitrite-Dipstick Negative (Negative); Occult Blood-Urine Negative /ul (Negative); Protein-Dipstick Negative (Negative); Urine Bilirubin Dipstick Negative (Negative); Urine Clarity Clear (Clear); Urine Urobilinogen Normal (Normal); Urine pH 6.5 (5.0 - 8.0)
[2023-07-23] MEDS: Hydroxychloroquine 200 MG Tablet PO (22:23)
[2023-07-23] MEDS: Doxycycline 100 MG CAPSULE PO (22:23)
[2023-07-23] MEDS: Tamsulosin HCl 0.4 MG Capsule PO (22:23)
[2023-07-23] MEDS: Pravastatin 80 MG Tablet PO (22:24)
[2023-07-23] MEDS: Gabapentin 300 MG Capsule PO (23:47)
[2023-07-23] MEDS: Iron Polysaccharide Complex 150 MG CAPSULE PO (23:47)
[2023-07-24] VITALS (11 sets, daily range): BP systolic 127–166; BP diastolic 62–75; PULSE 65–77; RESP 16–18; TEMP 36.3–37; O2SAT 96–99; BMI 25.7
[2023-07-24] MEDS: 0.9% Normal Saline (1000mL) 1,000 ML 75 ML IV (02:39)
[2023-07-24] MEDS: Pantoprazole Sodium 80 MG in 0.9% Normal Saline (100mL Bag) 80 ML 10 MG CONT INF ×2 (02:43→11:37)
[2023-07-24 03:56] LABS: Absolute Lymphocyte Count 1.45 X10^3/uL (0.83-4.51); Absolute Neutrophil Count 3.5 X10^3/uL (2.0-7.7); Basophil# 0.04 X10^3/uL; Basophil% 0.7 % (0-1); Eosinophil# 0.11 X10^3/uL; Eosinophils% 1.9 % (0-5); Hematocrit 25.2 % (40-54); Hemoglobin 8.1 g/dL (13.0-16.5); Lymphocyte # 1.45 X10^3/ul (0.83-4.51); Lymphocyte % 25.1 % (19-41); Mean Corp Hgb Conc 32.1 g/dL (32-36); Mean Corpuscular Hgb 29.1 pg (27.0-32.0); Mean Corpuscular Volume 90.6 fL (80-94); Mean Platelet Vol. 10.4 fl (6.2-12.0); Monocyte# 0.65 X10^3/uL; Monocyte% 11.2 % (0-10); NRBC Flagged by Analyzer 0 % (0-5); Neutrophil # 3.52 X10^3/uL (2.7-7.7); Neutrophil % 60.9 % (47-70); Platelet Count 210 K/mm3 (150-450); RBC Distribution Width CV 16.5 % (11.6-14.6); RBC Distribution Width SD 50.7 fl (35.1-43.9); Red Blood Count 2.78 M/mm3 (4.6-6.2); White Blood Count 5.8 K/mm3 (4.4-11.0)
[2023-07-24 05:28] LABS: AST(SGOT) 18 U/L (15-37); Alanine Aminotransfer ALT/SGPT 18 U/L (16-61); Alkaline Phosphatase 49 U/L (45-117); Anion Gap 6 (5-15); BUN 30 mg/dL (7-18); BUN/Creat Ratio 29.1 RATIO (10-20); Calcium,Total 8.3 mg/dL (8.5-10.1); Chloride 112 mmol/L (98-107); Creatinine, Serum 1.03 mg/dL (0.70-1.30); EST Glomerular Filtration Rate 72 mL/min (>60); Est Glom Filt Rate - Afr Amer 88 mL/min (>60); Estimated Creatinine Clearance 44.74 ml/min; Globulin 3.1 g/dL (2.2-4.2); Glucose 81 mg/dL (74-106); Potassium 3.7 mmol/L (3.5-5.1); Protein, Total 6.1 g/dL (6.4-8.2); Sodium Level 142 mmol/L (136-145)
--- NOTE | 2023-07-24 05:55 | RAD_ITS ---
INDICATION: Dyspnea EXAMINATION/TECHNIQUE: X-RAY - XR Chest 1 View COMPARISON: 07/23/2023. FINDINGS: LINES/DEVICES: None. LUNGS: No consolidation or evidence of an effusion. No evidence of edema or a pneumothorax. MEDIASTINUM AND CARDIOVASCULAR STRUCTURES: Cardiac silhouette is normal in size and contour. Mediastinum is unremarkable. BONES AND SOFT TISSUES: No acute abnormality. RAD/Chest 1 View (Portable) IMPRESSION: No evidence of acute cardiopulmonary disease. Electronically Signed: Renato Leal DO at 6:35 EDT ,
[2023-07-24 07:53] LABS: Hematocrit 26.4 % (40-54); Hemoglobin 8.6 g/dL (13.0-16.5)
--- NOTE | 2023-07-24 09:57 | PCM.PN.HOSP ---
Reason for Visit Reason for Visit: Diagnoses Anemia, unspecified (07/23/23) Objective Data Objective Data Vital Signs: Vital Signs Temp Pulse Resp BP Pulse Ox O2 Del Method 98.5 F 68 16 142/75 H 97 Room Air 07/24/23 07:53 07/24/23 07:53 07/24/23 07:53 07/24/23 07:53 07/24/23 07:53 07/24/23 08:07 Oxygen Delivery Method Room Air Weight: 159 lb 13.362 oz Body Mass Index (BMI) 25.7 Intake & Output: Intake and Output for Last 24 Hours 07/22/23 07/23/23 07/24/23 23:59 23:59 23:59 Intake Total 111 / 111 Output Total 1200 / 1200 Balance 111 / 111 -1199 / -1199 Lab / Micro Data 07/24/23 12:30 07/24/23 03:45 Labs: Laboratory Results - last 24 hr 07/23/23 17:03: WBC 6.2, RBC 2.18 L, Hgb 6.3 L, Hct 19.9 L, MCV 91.3, MCH 28.9, MCHC 31.7 L, RDW Std Deviation 53.1 H, RDW Coeff of Juanis 17.2 H, Plt Count 216, MPV 10.0, Immature Gran % (Auto) 0.500, Neut % (Auto) 76.1 H, Lymph % (Auto) 15.2 L, Wells % (Auto) 7.1, Eos % (Auto) 0.6, Baso % (Auto) 0.5, Absolute Neuts (auto) 4.7, Absolute Lymphs (auto) 0.94, Nucleated RBC % 0, Sodium 136, Potassium 4.1, Chloride 105, Carbon Dioxide 22.0, Anion Gap 9, BUN 38 H, Creatinine 1.26, Estim Creat Clear Calc 36.57, Est GFR (MDRD) Af Amer 69, Est GFR (MDRD) Non-Af 57 L, BUN/Creatinine Ratio 30.2 H, Glucose 110 H, Calcium 8.6, Magnesium 2.0, Troponin I High Sens 47 07/23/23 17:22: Blood Type B POSITIVE, Antibody Screen NEGATIVE, Crossmatch See Detail 07/23/23 18:45: Procalcitonin 0.08 07/23/23 19:29: Urine Color Yellow, Urine Clarity Clear, Urine pH 6.5, Ur Specific [place] 1.010, Urine Protein Negative, Urine Glucose (UA) Normal, Urine Ketones Negative, Urine Occult Blood Negative, Urine Nitrite Negative, Urine Bilirubin Negative, Urine Urobilinogen Normal, Ur Leukocyte Esterase Negative, Urine RBC 0 SEEN, Urine WBC 0 SEEN, Ur Squamous Epith Cells 0 SEEN, Urine Bacteria 0 SEEN, Urine Mucus 0 SEEN 07/24/23 03:38: WBC 5.8, RBC 2.78 L, Hgb 8.1 L, Hct 25.2 L, MCV 90.6, MCH 29.1, MCHC 32.1, RDW Std Deviation 50.7 H, RDW Coeff of Juanis 16.5 H, Plt Count 210, MPV 10.4, Immature Gran % (Auto) 0.200, Neut % (Auto) 60.9, Lymph % (Auto) 25.1, Wells % (Auto) 11.2 H, Eos % (Auto) 1.9, Baso % (Auto) 0.7, Absolute Neuts (auto) 3.5, Absolute Lymphs (auto) 1.45, Nucleated RBC % 0 07/24/23 03:45: Sodium 142, Potassium 3.7, Chloride 112 H, Carbon Dioxide 24.0, Anion Gap 6, BUN 30 H, Creatinine 1.03, Estim Creat Clear Calc 44.74, Est GFR (MDRD) Af Amer 88, Est GFR (MDRD) Non-Af 72, BUN/Creatinine Ratio 29.1 H, Glucose 81, Calcium 8.3 L, Total Bilirubin 0.40, AST 18, ALT 18, Alkaline Phosphatase 49, Total Protein 6.1 L, Albumin 3.0 L, Globulin 3.1, Albumin/Globulin Ratio 1.0 07/24/23 07:35: Hgb 8.6 L, Hct 26.4 L Micro: Microbiology 07/23/23 20:42 Mucosa - Nasopharyngeal Respiratory Panel (PCR) - Final 07/23/23 19:29 Urine, Clean Catch Legionella Antigen - Final 07/23/23 19:29 Urine, Clean Catch Streptococcus pneumoniae Antigen (M - Final 07/23/23 17:15 Stool Stool Occult Blood (GLYNN) - Final Occult Blood Positive Radiography Diagnostic Testing: Radiology Impression Chest X-Ray 07/23/23 16:44 IMPRESSION: Streaky opacities in the left lung base represent atelectasis versus infection. Electronically Signed: Berto Barksdale MD at 17:29 EDT , Chest X-Ray 07/24/23 05:55 IMPRESSION: No evidence of acute cardiopulmonary disease. Electronically Signed: Renato Leal DO at 6:35 EDT , Physical Exam Narrative Seen and examined. Patient admitted for generalized weakness with no energy is could not walk and found to have severely anemia Physical exam General: Alert, Oriented x3, Cooperative HEENT: Atraumatic, PERRLA, EOMI, Normocephalic Oral: No Gingival or Mucosal Lesions/ Ulcerations Neck: Supple, No JVD, Negative Carotid Bruits Chest wall/Lungs: Air entry diminished in bilateral lung bases. No crepitation/rhonchi Cardiovascular: Regular rate, Regular Rhythm, Normal S1, Normal S2, systolic murmur over right second ICS, LLSB and cardiac apex Abdomen: Bowel Sounds Present, Soft, Non Tender, Non-Distended : No dysuria. No renal angle tenderness. No suprapubic tenderness. Extremities: Mild edema, Capillary Refill Less than 3 Seconds Skin: No rashes, No breakdown Musculoskeletal: No Tenderness to Palpation of Joints or Extremities. ROM restricted at hips and knees joint. Neurological: Cranial nerves II-XII grossly intact, DTR 2+/4. No acute focal neurological deficit. Psych/Mental Status: Flat affect Assessment & Plan Assessment/Plan (1) Acute on chronic anemia: PLAN: Plan The patient is an 88 y/o M Came to ED with bilateral leg weakness after he had a heart cath on on 07/15/2023 as part of workup to have aortic valve replacement. Uses walker. No dizziness lightheadedness, syncope or falls. He could not walk even 20 feet on day before admission. In ED, BP was low 82/52 at home and in ER 105/49. Hemoglobin was found low 6.3. #1. Acute debility/fatigue, failure to do ADL probably due to severe acute on chronic anemia due to GI bleed along with multiple comorbidities: [facility] Baseline H&H 9.8/30% readmitted with 6.3/20%. MCV 91. Platelet count normal. GI is consulted. Chest x-ray does not show acute abnormality. 2 units of PRBC ordered. Stool for occult blood positive. Urinary antigens and respiratory panel negative. EGD 07/24/2023 Impressions : - Mild Schatzki ring. - Small hiatal hernia. - Non-bleeding gastric ulcers with no stigmata of bleeding. Biopsied. - No gross lesions in the first portion of the duodenum. Recommendations : - [facility]. - Resume previous diet. - Use Protonix (pantoprazole) 40 mg PO BID. - Continue present medications. #2. Valvular Heart Disease: 06/05/2023 echocardiogram with normal LV size, normal LV systolic function, LVEF 60%, stage II diastolic dysfunction, moderate focal AV calcification, severe aortic stenosis, mean aortic valve gradient 60 mmHg. As noted recent cardiac catheterization with recommendation for TAVR. 07/23: Severe aortic stenosis with mean AV gradient #3. Renal artery stenosis: Most recent imaging noted 02/07/2022 with a renal artery duplex with less than 60% stenosis bilateral renal arteries, maintained right renal length 9.72 cm, anechoic structure right kidney measuring 1.18 x 1.16 cm consistent with cyst, borderline left renal length 8.2 cm with no change since prior evaluation 2018 other than decreased renal length from previous 9 cm on the left. Temporally holding Plavix given #1, continue hypertensive regimen and statin therapy. #4. CAD: Noted PCI 05/31/2018 with stent to the left anterior descending artery, continue statin, metoprolol, ramipril home regimen. 07/15/2023 cardiac catheterization with noted moderate coronary artery disease with previously placed stent in the left anterior descending artery patent, severe aortic valve stenosis with mean gradient 60 mmHg with recommendation for evaluation for TAVR. Given concern for bleeding as noted will temporarily hold Plavix. #5. Chronic Kidney Disease Stage IIIb: Admission BUN/Cr 38/1.26, GFR 57, baseline renal function primarily 1.1-1.3. 07/23: Repeat BMP shows improvement 1.03. BUN 30. #6. Carotid disease: l continue patient statin, hypertensive regimen is noted, no diabetic history per chart report. Given concern for bleeding as noted will temporarily hold Plavix. #7. Chronic back pain with radiculopathy: Status post surgical intervention on the back, difficulty with mobility with balance per reports in chart, continue patient chronic gabapentin regimen, maintain on fall precautions, PT/OT/case management consulted for discharge planning. #8. Hypertension: Continue home regimen including ramipril, metoprolol, amlodipine with hold parameters in place given reported initial low BP outpatient, PRN hydralazine. #9. History hemorrhagic CVA: Resolved, given current presentation as noted will temporally hold Plavix, continued on hypertensive regimen with hold parameters as needed. #10. Rheumatoid arthritis: continue patient home Plaquenil regimen, encourage continued outpatient follow-up with rheumatology as previously arranged. #11. Hypothyroidism: continue patient home levothyroxine regimen. #12. BPH: We will continue patient home Flomax and Proscar regimen. #13. Celiac disease: Given presentation at this time will allow clears until midnight with n.p.o. status following, once appropriate need to assure order modified diet and encourage continue outpatient follow-up with PCP as previously arranged or GI is following with GI. #14. Chew tobacco: Strongly encourage chew tobacco cessation, nicotine replacement offered and declined. Patient says he uses leaf whole and constantly has something in his mouth. He was educated that that was not allowed while in the hospital. 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 #16. GERD: On PPI #17. DVT prophylaxis: SCDs. #18. CODE status: Patient HCPOA is his who is present and living will is currently in place. Discussed CODE status at length including difference between FULL code, DNR-CCA and DNR-CC status. Following discussions about the differences in these status, requested eventually Full Code status. Patient prognosis if her cardiopulmonary event were to occur and CPR was initiated was discussed very honestly and at length and at some point him and his deferred as far as his potentially thinking less aggressive measures but patient eventually decided to maintain full code status Charges/Coding Visit Charges Inpatient E&M: 01332 Subs Hosp L2
--- NOTE | 2023-07-24 09:58 | CASEMGMT ---
AMANDA LAND Assessment Face to Face with patient for initial transition planning/care coordination assessment. AMANDA LAND introduced self and role at [facility], pt voices understanding. Pt is A&Ox4 and is resting comfortably in bed and is calm. Care providers, pharmacy, and demographics verified. Admitting dx: GI Bleed, Acute on Chronic Anemia PCP: [facility] Specialists: Pt states that he does not see PM anymore. Pt states that he sees Dr. Victoria Preferred Pharmacy: [facility] Insurance: [facility] Prescription Benefit: Yes LNOK: Alisha Au (W), Yung Au (son) Living Arrangements: Pt lives with his in a single story home with a BM with HR and 2 steps to enter ADLs/IADLs: States ind. Pt uses a [facility] religiously Transportation: Self, DME: [facility], [facility] HHC/SNF: Denies history or needs Pt?s goal: Home Plan: 6-Click is 20. PT pending. Pt refused the need for HHC or OP therapy at this time. Pt wishes to return home. Pt states that he does not want to have a colonoscopy done now as he would prefer to do this as an OP. CM to follow for safe DC from [facility]. Anurag Helton RN, CM
[2023-07-24] MEDS: 0.9% Normal Saline (1000mL) 1,000 ML 15 ML IV (12:06)
[2023-07-24 12:17] LABS: Thyroid Stim Hormone (TSH) 2.85 uIU/mL (0.358-3.74)
--- NOTE | 2023-07-24 12:25 | IMM_PTH ---
PATHOLOGY RESULTS PATIENT: DELROY TIPTON LOC: MS3 U#:[id number] AGE/SX: 88/M [place] [facility] [place]07/23/[address]: Dr. Pool De Dios MD : 1935 BED: 1 DIS: 07/25/2023 SPEC #: [id number] RECD: 07/27/23 10:37 STATUS: CINTHIA REQ #: [id number] NICOLASA: 07/24/23 12:[address]: Carlos Alba DEPT: IMMUNOHISTOCHEMISTRY RECD BY: Kameron Escoto ENTERED: 07/27/23 10:37 SP TYPE: IMMUNO OTHR DR: MD Dr. Ximena Malone MD Dr. Prakash Chand, MD Tissues: Gastric mucous membrane Procedures: H Pylori (initial) Comments: @ Ordering doctor for H.PYLORI edited from to @ by EVELIA at 07/27/23 1038 @ Submitting doctor edited from to @ by EVELIA at 07/27/23 1038 PHYSICIAN & [place] [phone] SPECIMEN INFORMATION: Tissue Source: Gastric ulcer biopsy Clinical Info: Anemia, bleeding Specimen Number: [id number] CPT code: 06526 METHODOLOGY: Deparaffinized sections of prefer/formalin-fixed tissue or PAP/DQ stained slides are incubated with monoclonal/polyclonal antibodies/oligonucleotide probes. Localization is made via biotin free immunoperoxidase method. Appropriate controls are performed and reacted as expected. Results on target cell population are indicated in the following table: RESULTS: ANTIBODY / CLONE RESULT H Pylori (polyclonal) negative These tests were developed and their performance characteristics determined by [facility]. They may not have been cleared or approved by the U.S. Food and Drug Administration. The FDA has determined that such clearance or approval is not necessary. The above immunohistochemical/dualISH markers are ordered and reviewed by the Pathologist. INTERPRETATION: Gastric ulcer, biopsy: Negative for Helicobacter pylori organisms. SHANE/ 07/28/2023
--- NOTE | 2023-07-24 12:25 | EGD_PTH ---
PATHOLOGY RESULTS PATIENT: DELROY TIPTON LOC: MS3 U#:[id number] AGE/SX: 88/M ROOM: [facility] RE07/23/[address]: Dr. Pool De Dios MD : 1935 BED: 1 DIS: 07/25/2023 SPEC #: [id number] RECD: 07/24/23 13:51 STATUS: CINTHIA LANDIN #: [id number] NICOLASA: 07/24/23 12:[address]: Carlos Alba DEPT: SURGICAL PATHOLOGY RECD BY: Sammy [place] ENTERED: 07/27/23 09:01 SP TYPE: EGD BIOPSY OTHR DR: MD Dr. Ximena Malone MD Dr. Prakash Chand, MD Tissues: Gastric mucous membrane Procedures: Surgery Specimen Level IV HEADER OPERATION: EGD PRE-OP DIAGNOSIS: Anemia, bleeding TISSUE SUBMITTED: Gastric ulcer biopsy MICROSCOPIC DIAGNOSIS Gastric ulcer, biopsy: Chronic gastritis. Focal active gastritis. AM/mr 07/28/2023 COMMENT The results of immunohistochemistry for Helicobacter pylori will be reported separately ([id number]). MICROSCOPIC DESCRIPTION Slides are reviewed. GROSS DESCRIPTION Received in fixative is one container labeled with the patient's name and designated Gastric ulcer biopsy. The specimen consists of multiple irregular fragments of light yin soft tissue that in aggregate measure 1.0 x 0.3 x 0.1 cm. The specimen is totally submitted in one cassette. AM/mr 07/27/2023 TC:2 CPT:76992
--- NOTE | 2023-07-24 12:28 | CASEMGMT ---
Social Work Pt's healthcare power of contracts attorney is scanned into [employer] with the living will provision initialed, is listed as healthcare POA. ALEJA Pablo
[2023-07-24 12:46] LABS: Hematocrit 29.4 % (40-54); Hemoglobin 9.3 g/dL (13.0-16.5)
--- NOTE | 2023-07-24 13:13 | OP.EGD_ITS ---
Patient Name: Carrington Au Procedure Date: 07/24/2023 12:28 PM Date of : 1935 Age: 88 Procedure: Upper GI endoscopy Indications: Iron deficiency anemia Providers: Carlos Alba DO Medicines: Monitored Anesthesia Care Patient Profile: This is an 88 year old male. Refer to note in patient chart for documentation of history and physical. Patient has symptoms. Complications: No immediate complications. Procedure: Pre-Anesthesia Assessment: - Prior to the procedure, a History and Physical was performed, and patient medications and allergies were reviewed. The patient is competent. The risks and benefits of the procedure and the sedation options and risks were discussed with the patient. All questions were answered and informed consent was obtained. Patient identification and proposed procedure were verified by the physician in the pre-procedure area. Mental Status Examination: alert and oriented. Airway Examination: normal oropharyngeal airway and neck mobility. Respiratory Examination: clear to auscultation. CV Examination: normal. Prophylactic Antibiotics: The patient does not require prophylactic antibiotics. Prior Anticoagulants: The patient has taken no anticoagulant or antiplatelet agents except for NSAID medication. ASA Grade Assessment: II - A patient with mild systemic disease. After reviewing the risks and benefits, the patient was deemed in satisfactory condition to undergo the procedure. The anesthesia plan was to use monitored anesthesia care (MAC). Immediately prior to administration of medications, the patient was re-assessed for adequacy to receive sedatives. The heart rate, respiratory rate, oxygen saturations, blood pressure, adequacy of pulmonary ventilation, and response to care were monitored throughout the procedure. The physical status of the patient was re-assessed after the procedure. After obtaining informed consent, the endoscope was passed under direct vision. Throughout the procedure, the patient's blood pressure, pulse, and oxygen saturations were monitored continuously. The Endoscope was introduced through the mouth, and advanced to the second part of duodenum. The upper GI endoscopy was accomplished without difficulty. The patient tolerated the procedure well. Scope In: 12:55:28 PM Scope Out: 12:59:21 PM Total Procedure Duration Time 0 hours 3 minutes 53 seconds Findings: A mild Schatzki ring was found in the distal esophagus. A small hiatal hernia was present. Few non-bleeding linear gastric ulcers with no stigmata of bleeding were found in the gastric body. The largest lesion was 5 mm in largest dimension. Biopsies were taken with a cold forceps for histology. Verification of patient identification for the specimen was done. Biopsies were taken with a cold forceps for Helicobacter pylori testing. Verification of patient identification for the specimen was done. Estimated blood loss was minimal. No gross lesions were noted in the first portion of the duodenum. Impression: - Mild Schatzki ring. - Small hiatal hernia. - Non-bleeding gastric ulcers with no stigmata of bleeding. Biopsied. - No gross lesions in the first portion of the duodenum. Recommendation: - Return patient to [facility] for [facility] care. - Resume previous diet. - Use Protonix (pantoprazole) 40 mg PO BID. - Continue present medications. Procedure Code(s): --- Professional --- 74834, Esophagogastroduodenoscopy, flexible, transoral; with biopsy, single or multiple CPT copyright 2021 [employer]. All rights reserved. The codes documented in this report are preliminary and upon rn practitioner review may be revised to meet current compliance requirements. Carlos Alba DO 07/24/2023 1:12:52 PM This report has been signed electronically. Number of Addenda: 0 Note Initiated On: 07/24/2023 12:28 PM
--- NOTE | 2023-07-24 13:13 | OP.CCLET_ITS ---
07/24/2023 Ximena Haines Re : Upper GI endoscopy procedure for Carrington Au Dear [facility]aki This procedure was performed on Monday, July 24, 2023. My impressions and recommendations are as follows: Impressions : - Mild Schatzki ring. - Small hiatal hernia. - Non-bleeding gastric ulcers with no stigmata of bleeding. Biopsied. - No gross lesions in the first portion of the duodenum. Recommendations : - [facility]. - Resume previous diet. - Use Protonix (pantoprazole) 40 mg PO BID. - Continue present medications. My findings are described in the full procedure note, which is enclosed. If I can be of further assistance, please feel free to contact me at . Sincerely, Carlos Friend, 07/24/2023 1:12:52 PM This report has been signed electronically.
[2023-07-24] MEDS: Doxycycline 100 MG CAPSULE PO ×2 (14:26→22:02)
[2023-07-24] MEDS: Tamsulosin HCl 0.4 MG Capsule PO ×2 (14:26→22:02)
[2023-07-24] MEDS: Gabapentin 300 MG Capsule PO ×2 (14:26→22:02)
[2023-07-24] MEDS: Metoprolol(XL)Succ 25 MG Tablet PO (14:26)
[2023-07-24] MEDS: Ramipril 10 MG Capsule PO (14:26)
[2023-07-24] MEDS: amLODIPine 10 MG Tablet PO (14:26)
[2023-07-24] MEDS: Hydroxychloroquine 200 MG Tablet PO ×2 (14:27→22:02)
[2023-07-24] MEDS: Finasteride 5 MG Tablet PO (14:27)
[2023-07-24] MEDS: Iron Polysaccharide Complex 150 MG CAPSULE PO ×2 (14:27→22:02)
[2023-07-24] MEDS: Pravastatin 80 MG Tablet PO (22:02)
[2023-07-24] MEDS: Pantoprazole Sodium 40 MG Tablet PO (22:02)
[2023-07-25 02:27] VITALS: BP 126/58; PULSE 72; RESP 16; TEMP 36.6; O2SAT 97
[2023-07-25] MEDS: Levothyroxine 100 MCG Tablet PO (05:24)
[2023-07-25 07:18] LABS: Absolute Neutrophil Count 5.4 X10^3/uL (2.0-7.7); Basophil# 0.04 X10^3/uL; Basophil% 0.6 % (0-1); Eosinophil# 0.05 X10^3/uL; Eosinophils% 0.7 % (0-5); Hematocrit 29.6 % (40-54); Hemoglobin 9.5 g/dL (13.0-16.5); Lymphocyte % 12.4 % (19-41); Mean Corp Hgb Conc 32.1 g/dL (32-36); Mean Corpuscular Hgb 29.2 pg (27.0-32.0); Mean Corpuscular Volume 91.1 fL (80-94); Mean Platelet Vol. 10.5 fl (6.2-12.0); Monocyte# 0.88 X10^3/uL; Monocyte% 12.1 % (0-10); NRBC Flagged by Analyzer 0 % (0-5); Neutrophil # 5.37 X10^3/uL (2.7-7.7); Neutrophil % 73.8 % (47-70); Platelet Count 241 K/mm3 (150-450); RBC Distribution Width CV 17.2 % (11.6-14.6); RBC Distribution Width SD 55.1 fl (35.1-43.9); Red Blood Count 3.25 M/mm3 (4.6-6.2); White Blood Count 7.3 K/mm3 (4.4-11.0)
[2023-07-25 08:10] LABS: Anion Gap 3 (5-15); BUN 16 mg/dL (7-18); Calcium,Total 8.8 mg/dL (8.5-10.1); Chloride 111 mmol/L (98-107); Creatinine, Serum 0.89 mg/dL (0.70-1.30); EST Glomerular Filtration Rate 86 mL/min (>60); Est Glom Filt Rate - Afr Amer 104 mL/min (>60); Estimated Creatinine Clearance 51.77 ml/min; Glucose 105 mg/dL (74-106); Potassium 3.8 mmol/L (3.5-5.1); Sodium Level 141 mmol/L (136-145)
[2023-07-25 08:34] VITALS: O2SAT 98
[2023-07-25 09:00] VITALS: BP 140/76; PULSE 70; RESP 18; TEMP 36.6; O2SAT 97
[2023-07-25] MEDS: Doxycycline 100 MG CAPSULE PO (10:23)
[2023-07-25] MEDS: Ramipril 10 MG Capsule PO (10:23)
[2023-07-25] MEDS: Tamsulosin HCl 0.4 MG Capsule PO (10:23)
[2023-07-25] MEDS: Iron Polysaccharide Complex 150 MG CAPSULE PO (10:23)
[2023-07-25] MEDS: amLODIPine 10 MG Tablet PO (10:25)
[2023-07-25] MEDS: Pantoprazole Sodium 40 MG Tablet PO (10:25)
[2023-07-25] MEDS: Hydroxychloroquine 200 MG Tablet PO (10:25)
[2023-07-25] MEDS: Finasteride 5 MG Tablet PO (10:25)
[2023-07-25 10:26] VITALS: BP 140/76; PULSE 70
[2023-07-25] MEDS: Metoprolol(XL)Succ 25 MG Tablet PO (10:26)
[2023-07-25] MEDS: Gabapentin 300 MG Capsule PO (10:36)
--- NOTE | 2023-07-25 11:10 | DCINST_ITS ---
Discharge Instructions Follow Up Care Test Results: Test results from this visit will be discussed in further detail at your follow- up appointment, if applicable. Discharge Plan Admission Admit Date/Time: 07/23/23 18:34 Primary Reason for Your Visit: Upper GI bleed Attending Provider: Pool De Dios Primary Care Provider: Ximena Haines Consulting Providers: Marci Latham Instructions Additional Instructions / Restrictions: Advised to call GI office on 07/27/2023 to schedule outpatient colonoscopy Discharge Orders/Prescriptions Prescriptions: Continued acetaminophen [Tylenol 8 Hour] 650 mg tablet extended release 325 mg PO TID risedronate [Actonel] 150 mg tablet 150 mg PO QMONTH Rx Instructions: OF EVERY levothyroxine 100 mcg tablet 100 mcg PO DAILY amlodipine 10 mg tablet 10 mg PO DAILY ramipril 10 mg capsule 10 mg PO DAILY pravastatin 80 MG tablet 80 mg PO QHS gabapentin 300 MG capsule 300 mg PO BID finasteride [Proscar] 5 MG tablet 5 mg PO DAILY tamsulosin 0.4 mg capsule 0.4 mg PO BID LErikacidoph, paracasei,B. lactis 1 EACH capsule 2 ea PO BID cyanocobalamin (vitamin B-12) 1,000 MCG tablet 1,000 mcg PO DAILY cholecalciferol (vitamin D3) 5,000 UNIT tablet 5,000 unit PO QHS polysaccharide iron complex 150 MG capsule 150 mg PO BID doxycycline hyclate 100 mg capsule 100 mg PO BID tramadol 50 mg Tablet 50 mg PO Q4H PRN (Reason: Pain) hydroxychloroquine [Plaquenil] 200 mg Tablet 200 mg PO BID folic acid 1 mg tablet 1 mg PO DAILY zinc acetate 50 mg (zinc) capsule 50 mg PO DAILY metoprolol succinate 25 mg tablet extended release 24 hr 25 mg PO DAILY Changed pantoprazole 40 mg tablet,delayed release (DR/EC) 40 mg PO BID 30 Days Qty: 60 1RF Held clopidogrel [Plavix] 75 mg tablet 75 mg PO DAILY Qty: 90 3RF Hold Instructions: Hold for 1 week. Referrals / Follow Up: Ximena Haines MD [Primary Care Provider] - FriendCarlos DO [Med Staff - Active Staff] - Within 1 Month (Follow-up for colonoscopy outpatient.) Disposition Disposition (needs filled in before D/C Order can be placed): Home, Self Care
--- NOTE | 2023-07-25 11:47 | DS.PCM_ITS ---
Providers Date of Admission: 07/23/23 Date of Discharge: 07/25/23 Primary Care Physician: Dr. Ximena Haines MD Consultations 07/23/23 20:32 Consult: Gastroenterology Routine Consulting Provider: [facility] Reason for Consult: ABLA on chronic, GI bleed EMERGENT Consult: No MD Notified: Yes Date Notified: 07/23/23 Time Notified: 18:39 Method of Notification: Text Reason For Visit: GI BLEED, ACUTE ON CHRONIC ANEMIA Diagnosis Discharge Diagnosis (1) Acute on chronic anemia: Status: Chronic Code(s): D64.9 - Anemia, unspecified Plan The patient is an 88 y/o M Came to ED with bilateral leg weakness after he had a heart cath on on 07/15/2023 as part of workup to have aortic valve replacement. Uses walker. No dizziness lightheadedness, syncope or falls. He could not walk even 20 feet on day before admission. In ED, BP was low 82/52 at home and in ER 105/49. Hemoglobin was found low 6.3. #1. Acute debility/fatigue, failure to do ADL probably due to severe acute on chronic anemia due to GI bleed along with multiple comorbidities: Patient is being admitted to [facility] floor. Baseline H&H 9.8/30% readmitted with 6.3/20%. MCV 91. Platelet count normal. GI is consulted. Chest x-ray does not show acute abnormality. 2 units of PRBC ordered. Stool for occult blood positive. Urinary antigens and respiratory panel negative. EGD 07/24/2023 Impressions : - Mild Schatzki ring. - Small hiatal hernia. - Non-bleeding gastric ulcers with no stigmata of bleeding. Biopsied. - No gross lesions in the first portion of the duodenum. Recommendations : - [facility]. - Resume previous diet. - Use Protonix (pantoprazole) 40 mg PO BID. - Continue present medications. 07/24: Discussed with Dr. Alba. Patient and his wanted to see Dr. Alba. EGD findings explained to the patient and his . Patient already on pantoprazole 40 mg monthly therefore double the dose and prescription given for 2 months. After that continue once daily. Advised to call GI office on Thursday to schedule outpatient colonoscopy. Patient had to attend graduation suddenly. Advised to hold Plavix for 1 week. Patient had cardiac stent 2 years ago. #2. Valvular Heart Disease: 06/05/2023 echocardiogram with normal LV size, normal LV systolic function, LVEF 60%, stage II diastolic dysfunction, moderate focal AV calcification, severe aortic stenosis, mean aortic valve gradient 60 mmHg. As noted recent cardiac catheterization with recommendation for TAVR. 07/23: Severe aortic stenosis with mean AV gradient 60 mmHg. Peak gradient 93 mmHg #3. Renal artery stenosis: Most recent imaging noted 02/07/2022 with a renal artery duplex with less than 60% stenosis bilateral renal arteries, maintained right renal length 9.72 cm, anechoic structure right kidney measuring 1.18 x 1.16 cm consistent with cyst, borderline left renal length 8.2 cm with no change since prior evaluation 2018 other than decreased renal length from previous 9 cm on the left. Temporally holding Plavix given #1, continue hypertensive regimen and statin therapy. #4. CAD: Noted PCI 05/31/2018 with stent to the left anterior descending artery, continue statin, metoprolol, ramipril home regimen. 07/15/2023 cardiac catheterization with noted moderate coronary artery disease with previously placed stent in the left anterior descending artery patent, severe aortic valve stenosis with mean gradient 60 mmHg with recommendation for evaluation for TAVR. Given concern for bleeding as noted will temporarily hold Plavix. #5. Chronic Kidney Disease Stage IIIb: Admission BUN/Cr 38/1.26, GFR 57, baseline renal function primarily 1.1-1.3. 07/23: Repeat BMP shows improvement 1.03. BUN 30. #6. Carotid disease: l continue patient statin, hypertensive regimen is noted, no diabetic history per chart report. Given concern for bleeding as noted will temporarily hold Plavix. #7. Chronic back pain with radiculopathy: Status post surgical intervention on the back, difficulty with mobility with balance per reports in chart, continue patient chronic gabapentin regimen, maintain on fall precautions, PT/OT/case management consulted for discharge planning. #8. Hypertension: Continue home regimen including ramipril, metoprolol, amlodipine with hold parameters in place given reported initial low BP outpatient, PRN hydralazine. #9. History hemorrhagic CVA: Resolved, given current presentation as noted will temporally hold Plavix, continued on hypertensive regimen with hold parameters as needed. #10. Rheumatoid arthritis: continue patient home Plaquenil regimen, encourage continued outpatient follow-up with rheumatology as previously arranged. #11. Hypothyroidism: continue patient home levothyroxine regimen. #12. BPH: We will continue patient home Flomax and Proscar regimen. #13. Celiac disease: Given presentation at this time will allow clears until midnight with n.p.o. status following, once appropriate need to assure order modified diet and encourage continue outpatient follow-up with PCP as previously arranged or GI is following with GI. #14. Chew tobacco: Strongly encourage chew tobacco cessation, nicotine replacement offered and declined. Patient says he uses leaf whole and constantly has something in his mouth. He was educated that that was not allowed while in the hospital. 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 #16. GERD: On PPI #17. DVT prophylaxis: SCDs. #18. CODE status: Patient SCOTTIE is his who is present and living will is currently in place. Discussed CODE status at length including difference between FULL code, DNR-CCA and DNR-CC status. Following discussions about the differences in these status, requested eventually Full Code status. Patient prognosis if her cardiopulmonary event were to occur and CPR was initiated was discussed very honestly and at length and at some point him and his deferred as far as his potentially thinking less aggressive measures but patient eventually decided to maintain full code status Discharge medication reconciliation done. Discharge follow-up instructions completed. Discharge process discussed with the patient and all questions were answered to patient's satisfaction. Follow with PCP in 1 to 2 weeks Total time spent, exact 35 minutes on discharge meds reconciliation, examination, coordination of care with nurses and ancillary staff, review of imaging and blood test and discussion with the patient on follow-up instructions. Medications at Discharge Home Medications finasteride 5 mg tablet (Proscar) 5 mg PO DAILY PROSTATE 09/21/13 gabapentin 300 mg capsule 300 mg PO BID NERVE PAIN 09/21/13 pravastatin 80 mg tablet 80 mg PO QHS CHOLESTROL 09/21/13 L.acidoph, paracasei,B. lactis 10 billion cell capsule 2 ea PO BID SUPPLEMENT 10/25/15 cholecalciferol (vitamin D3) 125 mcg (5,000 unit) tablet 5,000 unit PO QHS supplement 06/05/18 cyanocobalamin (vitamin B-12) 1,000 mcg tablet 1,000 mcg PO DAILY supplement 06/05/18 risedronate 150 mg tablet (Actonel) 150 mg PO QMONTH bone health 09/30/19 acetaminophen 650 mg tablet,extended release (Tylenol 8 Hour) 325 mg PO TID pain 04/04/20 metoprolol succinate 25 mg tablet,extended release 24 hr 25 mg PO DAILY blood pressure 04/04/20 doxycycline hyclate 100 mg capsule 100 mg PO BID post stent placement 06/21/21 polysaccharide iron complex 150 mg iron capsule 150 mg PO BID supplement 06/21/21 hydroxychloroquine 200 mg tablet (Plaquenil) 200 mg PO BID 07/30/21 tramadol 50 mg tablet 50 mg PO Q4H PRN Pain 07/30/21 amlodipine 10 mg tablet 10 mg PO DAILY 02/21/22 levothyroxine 100 mcg tablet 100 mcg PO DAILY 02/21/22 clopidogrel 75 mg tablet (Plavix) 75 mg PO DAILY #90 tabs 12/10/22 ramipril 10 mg capsule 10 mg PO DAILY 05/01/23 tamsulosin 0.4 mg capsule 0.4 mg PO BID BLADDER 05/01/23 folic acid 1 mg tablet 1 mg PO DAILY 07/23/23 zinc acetate 50 mg (zinc) capsule 50 mg PO DAILY 07/23/23 pantoprazole 40 mg tablet,delayed release 40 mg PO BID 30 days #60 tabs 07/25/23 Physical Exam Narrative Seen and examined. No further episodes of bleeding. No acute issues. Wants to go home. Physical exam General: Alert, Oriented x3, Cooperative HEENT: Atraumatic, PERRLA, EOMI, Normocephalic Oral: No Gingival or Mucosal Lesions/ Ulcerations Neck: Supple, No JVD, Negative Carotid Bruits Chest wall/Lungs: Air entry diminished in bilateral lung bases. No crepitation/rhonchi Cardiovascular: Regular rate, Regular Rhythm, Normal S1, Normal S2, systolic murmur over right second ICS, LLSB and cardiac apex, severe grade 5/6 Abdomen: Bowel Sounds Present, Soft, Non Tender, Non-Distended : No dysuria. No renal angle tenderness. No suprapubic tenderness. Extremities: Mild edema, Capillary Refill Less than 3 Seconds Skin: No rashes, No breakdown Musculoskeletal: No Tenderness to Palpation of Joints or Extremities. ROM restricted at hips and knees joint. Neurological: Cranial nerves II-XII grossly intact, DTR 2+/4. No acute focal neurological deficit. Psych/Mental Status: Flat affect Weight / BMI Weight Weight: 159 lb 13.362 oz Body Mass Index (BMI) 25.7 ABG / Lab / Microbiology Data 07/25/23 06:50 07/25/23 06:50 Laboratory: Laboratory Results - last 24 hr 07/24/23 03:45: TSH 2.85 07/24/23 12:30: Hgb 9.3 L, Hct 29.4 L 07/25/23 06:50: WBC 7.3, RBC 3.25 L, Hgb 9.5 L, Hct 29.6 L, MCV 91.1, MCH 29.2, MCHC 32.1, RDW Std Deviation 55.1 H, RDW Coeff of Juanis 17.2 H, Plt Count 241, MPV 10.5, Immature Gran % (Auto) 0.400, Neut % (Auto) 73.8 H, Lymph % (Auto) 12.4 L, [place] % (Auto) 12.1 H, Eos % (Auto) 0.7, Baso % (Auto) 0.6, Absolute Neuts (auto) 5.4, Absolute Lymphs (auto) 0.90, Nucleated RBC % 0, Sodium 141, Potassium 3.8, Chloride 111 H, Carbon Dioxide 27.0, Anion Gap 3 L, BUN 16, Creatinine 0.89, Estim Creat Clear Calc 51.77, Est GFR (MDRD) Af Amer 104, Est GFR (MDRD) Non-Af 86, BUN/Creatinine Ratio 18.0, Glucose 105, Calcium 8.8 Microbiology: Microbiology 07/23/23 20:42 Mucosa - Nasopharyngeal Respiratory Panel (PCR) - Final 07/23/23 19:29 Urine, Clean Catch Legionella Antigen - Final 07/23/23 19:29 Urine, Clean Catch Streptococcus pneumoniae Antigen (M - Final 07/23/23 17:15 Stool Stool Occult Blood (GLYNN) - Final Occult Blood Positive Meaningful Use Info Meaningful Use Meaningful Use Diagnoses (Choose all that apply): None applicable Ischemic Stroke Statin Dosing Therapy Reference: STATIN DOSE THERAPY REFERENCE: * Patients > 75 years receive moderate or high dose statin therapy. * Patients 75 years or YOUNGER should receive HIGH intensity statin dose unless contraindicated. You will be required to document reason for non-treatment if statin daily dose does not meet guidelines. HIGH DOSE STATIN THERAPY DAILY Atorvastatin > than or = to 40 mg Rosuvastatin > than or = to 20 mg Amlodipine + Atorvastatin > than or = to 2.5/40 mg Ezetimibe + Simvastatin 10/80 mg Simvastatin 80mg Discharge Plan Admission Admit Date/Time: 07/23/23 18:34 Primary Reason for Your Visit: Upper GI bleed Attending Provider: Pool De Dios Primary Care Provider: Ximena Haines Consulting Providers: Marci Latham Instructions Additional Instructions / Restrictions: Advised to call GI office on 07/27/2023 to schedule outpatient colonoscopy Discharge Orders/Prescriptions Prescriptions: Continued acetaminophen [Tylenol 8 Hour] 650 mg tablet extended release 325 mg PO TID risedronate [Actonel] 150 mg tablet 150 mg PO QMONTH Rx Instructions: EVERY levothyroxine 100 mcg tablet 100 mcg PO DAILY amlodipine 10 mg tablet 10 mg PO DAILY ramipril 10 mg capsule 10 mg PO DAILY pravastatin 80 MG tablet 80 mg PO QHS gabapentin 300 MG capsule 300 mg PO BID finasteride [Proscar] 5 MG tablet 5 mg PO DAILY tamsulosin 0.4 mg capsule 0.4 mg PO BID L.acidoph, paracasei,B. lactis 1 EACH capsule 2 ea PO BID cyanocobalamin (vitamin B-12) 1,000 MCG tablet 1,000 mcg PO DAILY cholecalciferol (vitamin D3) 5,000 UNIT tablet 5,000 unit PO QHS polysaccharide iron complex 150 MG capsule 150 mg PO BID doxycycline hyclate 100 mg capsule 100 mg PO BID tramadol 50 mg Tablet 50 mg PO Q4H PRN (Reason: Pain) hydroxychloroquine [Plaquenil] 200 mg Tablet 200 mg PO BID folic acid 1 mg tablet 1 mg PO DAILY zinc acetate 50 mg (zinc) capsule 50 mg PO DAILY metoprolol succinate 25 mg tablet extended release 24 hr 25 mg PO DAILY Changed pantoprazole 40 mg tablet,delayed release (DR/EC) 40 mg PO BID 30 Days Qty: 60 1RF Held clopidogrel [Plavix] 75 mg tablet 75 mg PO DAILY Qty: 90 3RF Hold Instructions: Hold for 1 week. Referrals / Follow Up: Ximena Haines MD [Primary Care Provider] - Friend,DO Carlos [Med Staff - Active Staff] - Within 1 Month (Follow-up for colonoscopy outpatient.) Disposition Disposition (needs filled in before D/C Order can be placed): Home, Self Care Charges/Coding Visit Charges Inpatient E&M: 55772 Disch Hosp >30min
--- NOTE | 2023-07-25 12:08 | CASEMGMT ---
[facility] NOTE: Discharge order is in. RN CM to room to talk w/pt, who is sitting @ edge of bed and , who is at bedside. PT/OT evals have been ordered and pt/ made aware they will be coming in to do eval prior to discharge. Pt declines wanting therapy to work w/him and states does not feel it is necessary. He states he uses a walker @ home and feels he is at his baseline. He has done OP therapy in the past but did not feel that it benefited him and does not wish to go again. He also declines wanting any HHC. They deny having any discharge needs or concerns. Therapy made aware of above. Gene CULP RN CM
[2023-07-25 12:15] VITALS: BP 120/60; PULSE 70; RESP 18; TEMP 36.6; O2SAT 96
== END 2023-07-25 12:23 | disposition home or self-care (01) | DRG 378 ==
LOC: ED 18:50 → MS3 07-24 07:05
PROVIDERS: Anesthesiology; Internal Medicine Gastroenterology; Physician Assistant; Admitting Provider Family Medicine; Emergency Provider Emergency Medicine; PCP Internal Medicine; Visit Provider Internal Medicine
PROC: 0DJ08ZZ Inspection of Upper Intestinal Tract, Via Natural or Artificial Opening Endoscopic (ICD-10-PCS; CPT 43235; principal; 2023-07-24 12:20)
DX: K29.31 Chronic superficial gastritis with bleeding (principal); M06.9 Rheumatoid arthritis, unspecified; N18.32 Chronic kidney disease, stage 3b; D62 Acute posthemorrhagic anemia; E03.9 Hypothyroidism, unspecified; I12.9 Hypertensive chronic kidney disease with stage 1 through stage 4 chronic kidney disease, or unspecified chronic kidney disease; I35.0 Nonrheumatic aortic (valve) stenosis; I70.1 Atherosclerosis of renal artery; I65.22 Occlusion and stenosis of left carotid artery; K22.2 Esophageal obstruction; E78.5 Hyperlipidemia, unspecified; I25.10 Atherosclerotic heart disease of native coronary artery without angina pectoris; K21.9 Gastro-esophageal reflux disease without esophagitis; G47.33 Obstructive sleep apnea (adult) (pediatric); K44.9 Diaphragmatic hernia without obstruction or gangrene; F17.220 Nicotine dependence, chewing tobacco, uncomplicated; M51.16 Intervertebral disc disorders with radiculopathy, lumbar region; M48.061 Spinal stenosis, lumbar region without neurogenic claudication; K25.9 Gastric ulcer, unspecified as acute or chronic, without hemorrhage or perforation; R62.7 Adult failure to thrive; N40.0 Benign prostatic hyperplasia without lower urinary tract symptoms; K90.0 Celiac disease; G89.29 Other chronic pain; Z68.26 Body mass index [BMI] 26.0-26.9, adult; Z91.198 Patient's noncompliance with other medical treatment and regimen for other reason; Z79.02 Long term (current) use of antithrombotics/antiplatelets; Z79.899 Other long term (current) drug therapy; Z86.73 Personal history of transient ischemic attack (TIA), and cerebral infarction without residual deficits; Z79.890 Hormone replacement therapy
CPT/HCPCS: 43239; 36415; 71045; 80048; 80053; 81001; 82274; 83735; 84145; 84443; 84484; 85014; 85018; 85025; 86644; 86850; 86900; 86901; 86920; 86922; 87449; 87633; 88305; 88342; 93005; 94668; 96365; 96366; 99221; 99283; J7030; J7040; P9016; A4216; G0378

== ENCOUNTER → 2023-08-24 | Outpatient (CLI) | payer MEDICARE, SELFPAY ==
[2023-08-24 11:37] LABS: Anion Gap 6 (5-15); BUN 27 mg/dL (7-18); BUN/Creat Ratio 23.9 RATIO (10-20); Calcium,Total 9.6 mg/dL (8.5-10.1); Chloride 105 mmol/L (98-107); Creatinine, Serum 1.13 mg/dL (0.70-1.30); EST Glomerular Filtration Rate 65 mL/min (>60); Est Glom Filt Rate - Afr Amer 79 mL/min (>60); Glucose 86 mg/dL (74-106); Potassium 4.1 mmol/L (3.5-5.1); Sodium Level 137 mmol/L (136-145)
== END | disposition home or self-care (01) ==
PROVIDERS: PCP Internal Medicine; Referring Provider Internal Medicine Interventional Cardiology; Visit Provider Internal Medicine Interventional Cardiology
DX: I35.8 Other nonrheumatic aortic valve disorders (principal)
CPT/HCPCS: 36415; 80048

== ENCOUNTER 2023-10-29 10:13 | Outpatient (CLI) | payer MEDICARE, SELFPAY ==
[2023-10-29] MEDS: Sodium Ferric Gluconat/Sucrose 125 MG in 0.9% Normal Saline (100mL Bag) 100 ML 110 MG IV (10:35)
[2023-10-29] MEDS: 0.9% NaCl Peripheral Flush Adult/Peds IV (10:35)
[2023-10-29] MEDS: 0.9% Normal Saline (100mL Bag) 100 ML 15 ML IV (10:35)
[2023-10-29 10:40] VITALS: BP 134/62; PULSE 75; RESP 16; TEMP 36.3; O2SAT 97; BMI 25.8
[2023-10-29 12:16] VITALS: BP 129/62; PULSE 67; RESP 16; TEMP 36.4; O2SAT 98
== END 2023-10-29 23:59 | disposition home or self-care (01) ==
LOC: MEDOUTP 10:14
PROVIDERS: PCP Internal Medicine; Referring Provider Internal Medicine; Visit Provider Internal Medicine
DX: D64.9 Anemia, unspecified (principal); M06.4 Inflammatory polyarthropathy; Z79.899 Other long term (current) drug therapy
CPT/HCPCS: 96365; 36415; 80053; 85025; A4216; J2916

== ENCOUNTER → 2023-10-29 | Outpatient (CLI) | payer MEDICARE, SELFPAY ==
[2023-10-29 15:09] LABS: Absolute Lymphocyte Count 1.53 X10^3/uL (0.83-4.51); Absolute Neutrophil Count 3.9 X10^3/uL (2.0-7.7); Basophil# 0.05 X10^3/uL; Basophil% 0.8 % (0-1); Eosinophils% 3.2 % (0-5); Hematocrit 28.9 % (40-54); Hemoglobin 8.8 g/dL (13.0-16.5); Lymphocyte # 1.53 X10^3/ul (0.83-4.51); Lymphocyte % 24.8 % (19-41); Mean Corp Hgb Conc 30.4 g/dL (32-36); Mean Corpuscular Hgb 27.9 pg (27.0-32.0); Mean Corpuscular Volume 91.7 fL (80-94); Monocyte# 0.45 X10^3/uL; Monocyte% 7.3 % (0-10); NRBC Flagged by Analyzer 0 % (0-5); Neutrophil # 3.93 X10^3/uL (2.7-7.7); Neutrophil % 63.7 % (47-70); Platelet Count 220 K/mm3 (150-450); RBC Distribution Width CV 14.7 % (11.6-14.6); RBC Distribution Width SD 49.8 fl (35.1-43.9); Red Blood Count 3.15 M/mm3 (4.6-6.2); White Blood Count 6.2 K/mm3 (4.4-11.0)
[2023-10-29 15:23] LABS: ALB/GLOB Ratio 0.9 RATIO (0.9-2.4); AST(SGOT) 20 U/L (15-37); Alanine Aminotransfer ALT/SGPT 19 U/L (16-61); Albumin, Serum 3.1 g/dL (3.2-5.0); Alkaline Phosphatase 69 U/L (45-117); Anion Gap 9 (5-15); BUN 25 mg/dL (7-18); Calcium,Total 8.7 mg/dL (8.5-10.1); Chloride 105 mmol/L (98-107); Creatinine, Serum 1.25 mg/dL (0.70-1.30); EST Glomerular Filtration Rate 58 mL/min (>60); Est Glom Filt Rate - Afr Amer 70 mL/min (>60); Globulin 3.6 g/dL (2.2-4.2); Glucose 140 mg/dL (74-106); Potassium 3.9 mmol/L (3.5-5.1); Protein, Total 6.7 g/dL (6.4-8.2); Sodium Level 139 mmol/L (136-145)
== END | disposition home or self-care (01) ==
LOC: MTLAB 13:17
PROVIDERS: PCP Internal Medicine; Referring Provider Internal Medicine Rheumatology; Visit Provider Internal Medicine Rheumatology
DX: M06.4 Inflammatory polyarthropathy (principal); Z79.899 Other long term (current) drug therapy
CPT/HCPCS: 36415; 80053; 85025

== ENCOUNTER 2023-11-05 11:43 | Outpatient (CLI) | payer MEDICARE, SELFPAY ==
[2023-11-05] MEDS: 0.9% NaCl Peripheral Flush Adult/Peds IV (12:17)
[2023-11-05] MEDS: 0.9% NaCl IVPB Med Flush (250 mL) 15 ML IV (12:18)
[2023-11-05 12:23] VITALS: BP 111/59; PULSE 80; RESP 18; O2SAT 97; BMI 25.8
[2023-11-05] MEDS: Sodium Ferric Gluconat/Sucrose 125 MG in 0.9% Normal Saline (100mL Bag) 100 ML 110 MG IV (12:25)
[2023-11-05 13:58] VITALS: BP 128/64; PULSE 64; RESP 16; O2SAT 98
== END 2023-11-05 23:59 | disposition home or self-care (01) ==
LOC: MEDOUTP 11:44
PROVIDERS: PCP Internal Medicine; Referring Provider Internal Medicine; Visit Provider Internal Medicine
DX: D64.9 Anemia, unspecified (principal)
CPT/HCPCS: 96365; J7050; A4216; J2916

== ENCOUNTER 2023-11-13 11:47 | Outpatient (CLI) | payer MEDICARE, SELFPAY ==
[2023-11-13 12:16] VITALS: BP 132/65; PULSE 69; RESP 16; TEMP 37.1; O2SAT 98; BMI 25.8
[2023-11-13] MEDS: 0.9% NaCl IVPB Med Flush (250 mL) 15 ML IV (12:26)
[2023-11-13] MEDS: 0.9% NaCl Peripheral Flush Adult/Peds IV (12:26)
[2023-11-13] MEDS: Sodium Ferric Gluconat 125 MG in 0.9% Normal Saline 100 ML 110 MG IV (12:45)
[2023-11-13 14:07] VITALS: BP 140/65; PULSE 67; RESP 16; TEMP 36.7; O2SAT 98
== END 2023-11-13 23:59 | disposition home or self-care (01) ==
LOC: MEDOUTP 11:48
PROVIDERS: PCP Internal Medicine; Referring Provider Internal Medicine; Visit Provider Internal Medicine
DX: D64.9 Anemia, unspecified (principal)
CPT/HCPCS: 96365; 96366; J7050; A4216; J2916

== ENCOUNTER 2023-11-23 12:43 | Outpatient (CLI) | payer MEDICARE, SELFPAY ==
[2023-11-23] MEDS: 0.9% NaCl Peripheral Flush Adult/Peds IV (13:09)
[2023-11-23 13:11] VITALS: BP 122/67; PULSE 69; RESP 16; TEMP 36.4; O2SAT 97; BMI 25.8
[2023-11-23] MEDS: Sodium Ferric Gluconat/Sucrose 125 MG in 0.9% Normal Saline (100mL Bag) 100 ML 110 MG IV (13:28)
[2023-11-23] MEDS: 0.9% NaCl IVPB Med Flush (250 mL) 15 ML IV (13:28)
[2023-11-23 14:51] VITALS: BP 145/64; PULSE 61; RESP 16; TEMP 36.4; O2SAT 95
== END 2023-11-23 23:59 | disposition home or self-care (01) ==
LOC: MEDOUTP 12:43
PROVIDERS: PCP Internal Medicine; Referring Provider Internal Medicine; Visit Provider Internal Medicine
DX: D64.9 Anemia, unspecified (principal)
CPT/HCPCS: 96365; J7050; A4216; J2916

== ENCOUNTER → 2024-02-10 | Outpatient (CLI) | payer MEDICARE, SELFPAY ==
--- NOTE | 2024-02-10 14:32 | NEURO ---
NCS and/or EMG Patient Report Ordering Doctor: Ximena Haines DATE OF SERVICE: 02/10/24 [facility] presents with numbness and tingling in the right hand, worsening over the past 2 years. Electrodiagnostic Findings: Right median motor nerve demonstrates prolonged distal latency with reduced amplitude and reduced conduction velocity. right ulnar motor response within normal limits. Absent right median sensory latency at the wrist and palm. Normal ulnar and radial sensory responses. Needle EMG testing was performed the right upper limb. All muscles tested showed no evidence of denervation with normal motor unit action potentials. Electrodiagnostic impression: This is an abnormal study in the right upper limb 1. Electrodiagnostic findings suggestive of right-sided median mononeuropathy. 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 2. No electrodiagnostic evidence is noted for cervical radiculopathy Multi Select Codes Neurology Neurology Interp Codes: 95137-21 Musc test done w/n test comp (interp) and 69098-03 Nrv cndj tst 5-6 studies (interp)
== END | disposition home or self-care (01) ==
LOC: PSN 13:15
PROVIDERS: PCP Internal Medicine; Referring Provider Internal Medicine; Visit Provider Internal Medicine
DX: R20.0 Anesthesia of skin (principal)
CPT/HCPCS: 95886; 95909

== ENCOUNTER 2024-02-13 13:04 | Emergency (ER) | payer MEDICARE, SELFPAY ==
[2024-02-13 13:05] VITALS: BP 89/61; PULSE 78; RESP 15; TEMP 35.9; O2SAT 97
--- NOTE | 2024-02-13 13:07 | EDS_ITS ---
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) Erectile dysfunction Carotid bruit Non-rheumatic aortic stenosis Anemia Obstructive sleep apnea Essential (primary) hypertension Renal artery stenosis DDD (degenerative disc disease) Osteoporosis Obesity Neoplasm of skin Hypothyroidism BPH (benign prostatic hyperplasia) Celiac disease Hyperlipidemia Home Medications ?Medication ?Instructions ?Recorded ?Last Taken ?Type finasteride 5 mg tablet (Proscar) 5 mg PO DAILY PROSTATE 09/21/13 07/23/23 History gabapentin 300 mg capsule 300 mg PO BID NERVE PAIN 09/21/13 07/23/23 History pravastatin 80 mg tablet 80 mg PO QHS CHOLESTROL 09/21/13 07/22/23 History cholecalciferol (vitamin D3) 125 5,000 unit PO QHS supplement 06/05/18 07/22/23 History mcg (5,000 unit) tablet cyanocobalamin (vitamin B-12) 1,000 mcg PO DAILY supplement 06/05/18 07/23/23 History 1,000 mcg tablet risedronate 150 mg tablet (Actonel) 150 mg PO QMONTH bone health 09/30/19 Unknown History doxycycline hyclate 100 mg capsule 100 mg PO BID post stent placement 06/21/21 07/23/23 History polysaccharide iron complex 150 mg 150 mg PO BID supplement 06/21/21 07/23/23 History iron capsule hydroxychloroquine 200 mg tablet 200 mg PO BID 07/30/21 07/23/23 History (Plaquenil) tramadol 50 mg tablet 50 mg PO Q4H PRN Pain 07/30/21 07/23/23 History levothyroxine 100 mcg tablet 100 mcg PO DAILY 02/21/22 07/23/23 History tamsulosin 0.4 mg capsule 0.4 mg PO BID BLADDER 05/01/23 07/23/23 History folic acid 1 mg tablet 1 mg PO DAILY 07/23/23 07/23/23 History zinc acetate 50 mg (zinc) capsule 50 mg PO DAILY 07/23/23 07/23/23 History L.acidoph, paracasei,B. lactis 10 1 cell PO DAILY SUPPLEMENT 09/30/23 Unknown History billion cell capsule acetaminophen 650 mg 325 mg PO TID PRN pain 09/30/23 Unknown History tablet,extended release (Tylenol 8 Hour) amlodipine 10 mg tablet 10 mg PO DAILY 09/30/23 Unknown History pantoprazole 40 mg tablet,delayed 40 mg PO QAM 09/30/23 Unknown History release clopidogrel 75 mg tablet (Plavix) 75 mg PO DAILY #90 tabs 12/17/23 Unknown Rx metoprolol tartrate 25 mg tablet 25 mg PO QDAY PRN 01/06/24 Unknown History prednisone 20 mg tablet 20 mg PO DAILY 5 days #5 tabs 02/13/24 Unknown Rx Allergy/AdvReac Type Severity Reaction Status Date / Time lidocaine Allergy Hives Verified 02/13/24 13:05 cephalexin (From Keflex) AdvReac confusion Verified 02/13/24 13:05 Family History Brother Myocardial infarction, Onset Age: 60 Brother Myocardial infarction, Onset Age: 65 Father Myocardial infarction, Onset Age: 60 Brother CVA (cerebral vascular accident) Son CVA (cerebral vascular accident) Surgical History S/P TAVR (transcatheter aortic valve replacement) H/O bilateral inguinal hernia repair Hx of total knee replacement Hx of knee surgery History of back surgery History of coronary artery stent placement (05/31/18) History of cataract surgery History of tonsillectomy and adenoidectomy Social History (Reviewed 01/06/24 @ 13:19 by Dinora Benavidez [employer], [employer]) Smoking Status: Never smoker Smokeless tobacco user: chewing tobacco alcohol intake: never substance use type: does not use caffeine: Yes Type: carbonated beverages Number of servings: 1 EXAM Physical Exam Const Vital Signs: 02/13/24 13:05 Temperature 96.7 F L Temperature Source Temporal Pulse Rate 78 Respiratory Rate 15 Blood Pressure 89/61 L Blood Pressure Mean 70 Pulse Ox 97 Oxygen Delivery Method Room Air MDM MDM MDM Narrative Medical decision making narrative: HISTORY OF PRESENT ILLNESS: 88-year-old male presents with right hand pain. He states he thinks it could be carpal tunnel syndrome. States pain is so severe he is unable to sleep last night. He further states he has a surgery scheduled next month with Dr. Earl. States overnight he started having significant pain in his right hand with shooting tingling and burning. Affecting the first second and third digit. He denies falls or trauma. Patient denies active cancer, being bedridden for greater than 3 days, denies unilateral leg swelling, denies any varicose veins, denies any calf tenderness, denies tenderness along deep venous system. Denies major surgery within 12 weeks, recent paralysis, previous DVT. REVIEW OF SYSTEMS: Pertinent positives: Hand pain, tingling, burning Pertinent negatives: Loss of sensation, loss of movement PHYSICAL EXAM: Nursing triage notes reviewed, Vital signs reviewed Constitutional: please see mdm HENT: MMM Eyes: Pupils equal round and reactive to light, Extraocular muscles intact Neck: No stridor, no JVD, full neck ROM Lungs: Clear to auscultation, No wheezing or rales. No increased work of breathing, no conversational dyspnea, no accessory muscle use, no nasal flaring. No respiratory distress noted Heart: Regular rate and rhythm, No murmurs, No rubs and No gallops, 2+ distal pulses (radial, femoral, posterior tibial) in all extremities Abdomen: Soft, there is no tenderness, rigidity, rebound or guarding, no obvious peritoneal signs, no palpable pulsatile abdominal masses, no auscultated abdominal bruit : No CVAT Extremities: No edema Neuro: Intact 5/5 strength with ok sign (median), intact finger abduction (ulnar) intact wrist extension (radial n). Intact sensation in the radial, ulnar, and median nerve distributions. Skin: No rash or lesions noted MEDICAL DECISION MAKING: Chief Complaint: Hand pain External records reviewed: Reviewed prior imaging: No recent advanced imaging of the involved extremity Factors affecting care: Status post TAVR, anemia, CAD status post stent, hypertension, hyperlipidemia Social determinants of health: none History obtained from others: family Consults: none [facility] Narrative: P patient initially hypotensive blood pressure 89/61 otherwise afebrile nontoxic-appearing I considered the following differential diagnosis: Fracture, dislocation, carpal tunnel syndrome, arterial occlusion, DVT No clinical signs of DVT. Pulses are equal and symmetric no signs of arterial occlusion No falls or trauma to suggest fracture dislocation Suspect the patient suffered carpal tunnel syndrome. Will give oral narcotics and steroids here. Discharged with steroids and pain management as well as follow-up with orthopedic hand surgery. The patient and/or family, caregivers express understanding. The patient and/or family, caregivers agrees with the plan. Shared decision making: I will have a discussion with the patient and or visitors regarding risk/benefits of further testing or admission. They will be made aware of of the risk/benefits inherent in this decision they will be given the opportunity to voice understanding. Total critical care time today provided was at least 0 minutes. This excludes separately billable procedures. Critical care time (if documented) is secondary to the patient having high probability of clinically significant/life threaten ing deterioration in the patient's condition which required my urgent intervention. Impression: 1. Acute right hand pain 2. Carpal tunnel syndrome Dispo: Discharge home This note was generated with [employer] dictation software. It may contain incorrect words, spelling, and punctuation that were not noted in review of the chart prior to signing. Discharge Plan Triage Chief Complaint: Upper Extremity Injury ED Provider: Jamar Chong Dx/Rx/DC Orders Instructions: ED Carpal Tunnel Syndrome Prescriptions: New prednisone 20 mg tablet 20 mg PO DAILY 5 Days Qty: 5 0RF No Action acetaminophen [Tylenol 8 Hour] 650 mg tablet extended release 325 mg PO TID PRN (Reason: pain) risedronate [Actonel] 150 mg tablet 150 mg PO QMONTH Rx Instructions: OF EVERY MONTH levothyroxine 100 mcg tablet 100 mcg PO DAILY amlodipine 10 mg tablet 10 mg PO DAILY pantoprazole 40 mg tablet,delayed release (DR/EC) 40 mg PO QAM metoprolol tartrate 25 mg tablet 25 mg PO QDAY PRN pravastatin 80 MG tablet 80 mg PO QHS gabapentin 300 MG capsule 300 mg PO BID finasteride [Proscar] 5 MG tablet 5 mg PO DAILY tamsulosin 0.4 mg capsule 0.4 mg PO BID L.acidoph, paracasei,B. lactis 10 billion cell capsule 1 cell PO DAILY cyanocobalamin (vitamin B-12) 1,000 MCG tablet 1,000 mcg PO DAILY cholecalciferol (vitamin D3) 5,000 UNIT tablet 5,000 unit PO QHS polysaccharide iron complex 150 MG capsule 150 mg PO BID doxycycline hyclate 100 mg capsule 100 mg PO BID tramadol 50 mg Tablet 50 mg PO Q4H PRN (Reason: Pain) hydroxychloroquine [Plaquenil] 200 mg Tablet 200 mg PO BID folic acid 1 mg tablet 1 mg PO DAILY zinc acetate 50 mg (zinc) capsule 50 mg PO DAILY clopidogrel [Plavix] 75 mg tablet 75 mg PO DAILY Qty: 90 3RF Primary Care Provider: Ximena Haines Referrals: Xu Earl DO [Med Staff - Active Staff] - Gomez Gill MD [Med Staff - Active Staff] - Activity Restrictions/Additional Instructions: Thank you for trusting us with your care today! Your clinical presentation and exam are most consistent with likely carpal tunnel syndrome. You been provided with a wrist brace. Please wear is much as possible to prevent excessive wrist flexion which can increase symptoms of carpal tunnel syndrome. Please take steroids as prescribed until course complete. Since you are in pain management did not prescribe additional narcotics. Please continue tramadol as prescribed and as needed for further pain control. Please take Tylenol (2 pills, 650 mg) every 6 hours as needed for pain and fever control. Please return to the emergency department if your symptoms change or worsen. Please follow with your orthopedic surgeon (Dr. Earl) for further outpatient evaluation and management. If Dr. Earl cannot move up your appointment try calling our other hand surgeon area Dr. Gill If he cannot perform her surgery please research other local hand surgeons to see if they have better availability. Print Language: Malian Disposition Disposition: Home, Self Care Discharge Date/Time: 02/13/24 13:47
[2024-02-13 13:28] VITALS: BP 121/81
[2024-02-13] MEDS: oxyCODONE 5 MG Tablet PO (13:31)
[2024-02-13] MEDS: predniSONE 20 MG Tablet PO (13:32)
[2024-02-13 13:46] VITALS: BP 121/81; PULSE 78; RESP 15; TEMP 35.9; O2SAT 97
== END 2024-02-13 13:47 | disposition home or self-care (01) ==
PROVIDERS: Emergency Provider Emergency Medicine; PCP Internal Medicine; Visit Provider Emergency Medicine
DX: G56.01 Carpal tunnel syndrome, right upper limb (principal); M06.9 Rheumatoid arthritis, unspecified; I10 Essential (primary) hypertension; I35.0 Nonrheumatic aortic (valve) stenosis; I25.10 Atherosclerotic heart disease of native coronary artery without angina pectoris; M81.0 Age-related osteoporosis without current pathological fracture; E66.9 Obesity, unspecified; E03.9 Hypothyroidism, unspecified; N40.0 Benign prostatic hyperplasia without lower urinary tract symptoms; K90.0 Celiac disease; E78.5 Hyperlipidemia, unspecified; D64.9 Anemia, unspecified; G47.33 Obstructive sleep apnea (adult) (pediatric); F17.220 Nicotine dependence, chewing tobacco, uncomplicated; Z95.2 Presence of prosthetic heart valve; Z95.5 Presence of coronary angioplasty implant and graft; Z88.1 Allergy status to other antibiotic agents; Z87.19 Personal history of other diseases of the digestive system; Z86.73 Personal history of transient ischemic attack (TIA), and cerebral infarction without residual deficits; Z86.19 Personal history of other infectious and parasitic diseases; Z96.652 Presence of left artificial knee joint; Z79.02 Long term (current) use of antithrombotics/antiplatelets; Z79.899 Other long term (current) drug therapy
CPT/HCPCS: 99283

== ENCOUNTER → 2024-04-21 | Outpatient (CLI) | payer MEDICARE, SELFPAY ==
[2024-04-21 10:48] LABS: Absolute Neutrophil Count 3.2 X10^3/uL (2.0-7.7); Basophil# 0.05 X10^3/uL; Eosinophil# 0.13 X10^3/uL; Eosinophils% 2.5 % (0-5); Hemoglobin 10.1 g/dL (13.0-16.5); Lymphocyte % 23.3 % (19-41); Mean Corp Hgb Conc 31.6 g/dL (32-36); Mean Corpuscular Hgb 28.8 pg (27.0-32.0); Mean Corpuscular Volume 91.2 fL (80-94); Mean Platelet Vol. 10.3 fl (6.2-12.0); Monocyte# 0.54 X10^3/uL; Monocyte% 10.5 % (0-10); NRBC Flagged by Analyzer 0 % (0-5); Neutrophil # 3.22 X10^3/uL (2.7-7.7); Neutrophil % 62.3 % (47-70); Platelet Count 217 K/mm3 (150-450); RBC Distribution Width CV 15.2 % (11.6-14.6); RBC Distribution Width SD 51.1 fl (35.1-43.9); Red Blood Count 3.51 M/mm3 (4.6-6.2); White Blood Count 5.2 K/mm3 (4.4-11.0)
[2024-04-21 11:01] LABS: ALB/GLOB Ratio 0.9 RATIO (0.9-2.4); AST(SGOT) 27 U/L (15-37); Alanine Aminotransfer ALT/SGPT 17 U/L (16-61); Albumin, Serum 3.4 g/dL (3.2-5.0); Alkaline Phosphatase 74 U/L (45-117); Anion Gap 7 (5-15); BUN 20 mg/dL (7-18); BUN/Creat Ratio 14.9 RATIO (10-20); Chloride 106 mmol/L (98-107); Creatinine, Serum 1.34 mg/dL (0.70-1.30); EST Glomerular Filtration Rate 53 mL/min (>60); Est Glom Filt Rate - Afr Amer 65 mL/min (>60); Globulin 3.7 g/dL (2.2-4.2); Glucose 92 mg/dL (74-106); Potassium 3.8 mmol/L (3.5-5.1); Protein, Total 7.1 g/dL (6.4-8.2); Sodium Level 139 mmol/L (136-145)
== END | disposition home or self-care (01) ==
LOC: MTLAB 09:33
PROVIDERS: PCP Internal Medicine; Referring Provider Internal Medicine Rheumatology; Visit Provider Internal Medicine Rheumatology
DX: M06.4 Inflammatory polyarthropathy (principal); Z79.899 Other long term (current) drug therapy; G56.01 Carpal tunnel syndrome, right upper limb
CPT/HCPCS: 36415; 80053; 85025

== ENCOUNTER → 2024-11-10 | Outpatient (CLI) | payer MEDICARE, SELFPAY ==
[2024-11-10 18:03] LABS: Hematocrit 32.4 % (40-54); Hemoglobin 10.9 g/dL (13.0-16.5); Mean Corp Hgb Conc 33.6 g/dL (32-36); Mean Corpuscular Volume 91.0 fL (80-94); Mean Platelet Vol. 10.5 fl (6.2-12.0); Platelet Count 202 K/mm3 (150-450); RBC Distribution Width CV 13.9 % (11.6-14.6); RBC Distribution Width SD 46.6 fl (35.1-43.9); Red Blood Count 3.56 M/mm3 (4.6-6.2); White Blood Count 5.3 K/mm3 (4.4-11.0)
[2024-11-10 18:41] LABS: AST(SGOT) 32 U/L (<=37); Alanine Aminotransfer ALT/SGPT 15 U/L (<=46); Albumin, Serum 4.4 g/dL (3.4-4.8); Alkaline Phosphatase 76 U/L (40-129); Anion Gap 14 (5-15); BUN 22 mg/dL (4-19); BUN/Creat Ratio 17.9 RATIO (10-20); Calcium,Total 9.4 mg/dL (7.6-11.0); Carbon Dioxide 22.5 mmol/L (21.0-32.0); Chloride 101 mmol/L (98-108); Ferritin 114 ng/mL (37-417); Globulin 3.1 g/dL (2.2-4.2); Glucose 95 mg/dL (70-99); Potassium 4.4 mmol/L (3.3-5.1); Vitamin B12 1253 pg/mL (180-914)
[2024-11-14 14:08] LABS: PROEL- A/G Ratio 1.2 (0.7-1.7); PROEL- Albumin 3.7 g/dL (2.9-4.4); PROEL- Alpha-1 Globulin 0.3 g/dL (0.0-0.4); PROEL- Alpha-2 Globulin 0.8 g/dL (0.4-1.0); PROEL- Beta Globulin 0.9 g/dL (0.7-1.3); PROEL- Gamma Globulin 1.1 g/dL (0.4-1.8); PROEL- Globulin, Total 3.1 g/dL (2.2-3.9); PROEL- TOTAL PROTEIN 6.8 g/dL (6.0-8.5); PROEL-M-Spike 0.3 g/dL (Not Observed)
== END | disposition home or self-care (01) ==
LOC: MTLAB 15:56
PROVIDERS: PCP Internal Medicine; Referring Provider Internal Medicine; Visit Provider Internal Medicine
DX: E03.9 Hypothyroidism, unspecified (principal); D51.8 Other vitamin B12 deficiency anemias; R76.8 Other specified abnormal immunological findings in serum; E61.1 Iron deficiency; I25.10 Atherosclerotic heart disease of native coronary artery without angina pectoris
CPT/HCPCS: 36415; 80053; 82607; 82728; 84165; 84443; 85027